=== PATIENT | male | born 1955 | race Caucasian/White ===

== ENCOUNTER 2019-12-06 09:42 | Outpatient (RCR) | payer MEDICAID, SELFPAY ==
[2019-12-06 11:04] LABS: Basophils # 0.1 10^3/uL (0.0-0.1); Basophils % 0.7 %; Eosinophils # 0.5 10^3/uL (0.0-0.8); Eosinophils % 6.5 %; Hematocrit 31.9 % (42.0-52.0); Hemoglobin 10.5 g/dL (11.7-16.6); Lymphocytes # 1.6 10^3/uL (0.8-4.8); Lymphocytes % 21.4 %; Mean Corpuscular HGB Conc 32.9 g/dL (30.0-36.0); Mean Corpuscular Hemoglobin 30.8 pg (28.0-34.0); Mean Corpuscular Volume 93.5 fL (80-94); Mean Platelet Volume 8.8 fL (7.4-10.4); Monocytes # 0.6 10^3/uL (0.2-0.9); Monocytes % 7.7 %; Neutrophils # 4.7 10^3/uL (1.8-7.7); Neutrophils % 63.2 %; Nucleated Red Blood Cells % 0 %; Platelet Count 296 10^3/cmm (130-400); Red Blood Count 3.41 10^6/uL (4.1-5.3); Red Cell Distribution Width 13.7 % (12.1-15.1); White Blood Count 7.4 10^3/uL (4.0-10.0)
[2019-12-06 11:09] LABS: Alanine Aminotransferase 17 U/L (0-41); Albumin Level 4.7 g/dL (3.5-5.2); Alkaline Phosphatase 96 IU/L (40-130); Anion Gap 15.5 (5-19); Aspartate Amino Transferase 16 U/L (0-40); Blood Urea Nitrogen 27 mg/dL (8-23); Calcium 9.7 mg/Dl (8.8-10.2); Carbon Dioxide 23 mmol/L (22-29); Chloride 99 mmol/L (98-107); Globulin 2.3 g/dL (1.3-4.6); Glomerular Filtration Rate 67.4 mL/min (90-130); Glucose 122 mg/dL (74-106); Iron 87 ug/dL (59-158); Percent Saturation 31.5 % (20-50); Potassium 5.5 mmol/L (3.5-5.1); Sodium 132 mmol/L (136-145); Total Bilirubin 0.2 mg/dL (0.15-1.2); Total Iron Binding Capacity 276 mg/dL; Unsaturated Iron Binding 189 ug/dL (112-347)
[2019-12-06 12:08] LABS: Erythrocyte Sedimentation Rate 31 mm/hr (0-10)
[2019-12-08 17:11] LABS: ALBUMIN 3.7 g/dL (3.8-4.8); ALPHA 1 GLOBULIN 0.3 g/dL (0.2-0.3); ALPHA 2 GLOBULIN 1.1 g/dL (0.5-0.9); BETA 1 GLOBULIN 0.4 g/dL (0.4-0.6); BETA 2 GLOBULIN 0.3 g/dL (0.2-0.5); GAMMA GLOBULIN 0.9 g/dL (0.8-1.7); KAPPA LIGHT CHAIN, FREE, SERUM 40.3 mg/L (3.3-19.4); KAPPA/LAMBDA LIGHT CHAINS FREE 1.23 (0.26-1.65); LAMBDA LIGHT CHAIN, FREE, SERU 32.8 mg/L (5.7-26.3); PROTEIN, TOTAL 6.7 g/dL (6.1-8.1)
--- NOTE | 2019-12-10 10:48 | ONC FU_ITS ---
Dr. Mehta Patient Follow-Up Note Patient: Hussein Fitch Unit #: [id number]: 1955 Dicatated By: Jan Mehta M.D.Date of Visit:Dec 06, 2019 Onc Med Follow-up/Prog Note Chief Complaint: Anemia. History of Present Illness: This is a 64 year-old man with iron deficiency anemia. In May 2013 he was admitted to the hospital with severe anemia, hemoglobin at 5.4 g with hematocrit 15.6%. The red cell indices were in the upper normal range. The white blood cell count was normal at 6900, and the platelet count was normal at 280,000. The uncorrected reticulocyte count was 7.7%. B12 and folate levels were normal. The serum iron was normal at 101 mcg/dL with transferrin saturation 24.9%. He was transfused a total of 4 units of packed red blood cells. He did undergo upper and lower GI endoscopy. The only abnormal finding was mild gastritis. He apparently had a previous history of GI bleeding due to peptic ulcer disease. Despite the negative endoscopy findings, the clinical picture appeared to be most consistent with acute GI blood loss. However, he also had undergone a left femoropopliteal bypass procedure a little over a month prior to that admission. I had seen him initially in June 2013. At that point his transferrin saturation was low at 11.4%, and I did opt to have him start parenteral iron replacement with Venofer, though his hemoglobin was just mildly decreased at 11.9 g. He did have 3/3 stools come back heme-positive. On 08/27/2019 his hemoglobin had dropped back down to 5.4 g, and he was again transfused PRBC. He required further transfusions in December 2013, and January 2014 he was again given parenteral iron replacement with Venofer. In May 2014 he underwent redo left femoropopliteal bypass. In September 2014 he was admitted to the hospital again with severe anemia, hemoglobin 4.5 g. That episode occurred while on warfarin with supratherapeutic INR. His other medical illnesses include hypertension, dyslipidemia, type 2 diabetes, peripheral arterial disease, and COPD. He has had multiple surgeries on his right arm due to an MRSA infection. He also had 2 surgeries on his right foot. He underwent left fempop bypass in March 2013 and redo left fempop bypass in May 2014. He also had a previous angioplasty/stent procedure to the right leg. His prior GI evaluations included EGD and colonoscopy in May 2013, capsule endoscopy in April 2014, and EGD in October 2016. He has a history of smoking for close to 50 years, and he continues to smoke 1 pack of cigarettes daily. INTERIM HISTORY: His laboratory studies from 07/23/2019 showed recurrence of anemia with hemoglobin 8.8 g and hematocrit 26.8%. The red cell indices were in the low normal range. His serum iron studies showed transferrin saturation low at 8%. He also had a low B12 level at 173 pg/mL. He began B12 replacement. His stool hemoccult on 08/01/2019 was reported to be positive. He had undergone repeat EGD and colonoscopy by Dr. Garrett. The EGD showed mild gastritis. There were no abnormalities noted on the colonoscopy. There was no source of GI blood loss identified. I had seen him for a follow-up visit on 08/13/2019. His hemoglobin was down slightly but adequate at 10.0 g. His transferrin saturation was low at 5.8% with ferritin 17.0 ng/mL, consistent with iron deficiency. He was then given parenteral iron replacement with 2 infusions of Injectafer. A follow-up CBC on 10/02/2019 was unchanged with hemoglobin 10.2 g, white blood cell count 6500, and platelet count 287,000. His transferrin saturation, though, had increased to 28.9% and his ferritin had increased to 356 ng/mL. He is seen for a follow-up visit. He recently was in the hospital for a lower extremity vascular procedure. He is scheduled to be seen in [place] next week for camera endoscopy. He says he is feeling pretty good, though he does have limited activity. ECOG score is 1. His appetite is not as good, but he has gained weight. He has not had fever. He says he sweats a lot at night. He has shortness of breath with activity. He does not complain of chest pain. He has heartburn/acid reflux occasionally. For the past few months he's been having diarrhea. It is mostly liquid stool. He has not been aware of any blood in the stool. Bladder function remains adequate. He sometimes has lightheadedness, and he occasionally falls. He complains that the bottoms of his feet hurt. He has no other joint or bone pain and no other focal neurologic symptoms. Medications: Aspirin 1 (81 mg) Tablet Oral daily, Ferrous Sulfate 1 Tablet (of 325 (65 fe) mg) Oral b.i.d., Gabapentin 1 Capsule (of 300 mg) Oral t.i.d., metFORMIN HCl 1 Tablet (of 850 mg) Oral t.i.d., Pravastatin Sodium 1 (80 mg) Tablet Oral at bedtime, Vitamin C 1 Capsule (of 500 mg) Oral daily Allergies: No Known Allergies. Review of Systems: Constitutional - His energy is pretty good, but he has limited activity. His appetite is not has good, but he has gained weight. No fever, but he has a lot of sweating at night. ECOG score is 1, ENMT - No sinus congestion/drainage. No mouth sores. No sore throat or difficulty swallowing, Hematologic/Lymphatic - He bruises easily, Respiratory - He has some shortness of breath with activity. No cough. No pleuritic pain or hemoptysis, Cardiovascular - No angina pain. No palpitations, Gastrointestinal - No nausea or vomiting. He occasionally has heartburn/acid reflux. For the past few months he has been having diarrhea all the time. He has not been aware of any blood in the stool or black stools, Genitourinary (M) - No dysuria or hematuria. He has urinary frequency and nocturia. No urgency or incontinence, Musculoskeletal - He has pain in his feet, Integumentary - No skin complications, Neurologic - No headache. He has episodes of dizziness, and he occasionally falls. He complains of the bottoms of his feet hurt, Psychiatric - He has anxiety. No depression. He does not sleep well at night. Vital Signs: Performed on Dec 06, 2019 09:55 Height - 71.00 in Weight - 151.0 lbs (HIGH) BSA - 1.87 sq.m BMI - 21.06 Temperature - 97.7 F (LOW) Pulse - 101 /min (HIGH) Respiration - 20 /min BP - 153/77 mm(hg) (HIGH) O2 Sat - 100 % Pain - 0 Physical Examination: Constitutional - He appears somewhat weak generally. He has poor mobility, Eyes - Sclerae nonicteric. Conjunctivae clear, ENMT - No lesions noted in the oral cavity, Hematologic/Lymphatic - No cervical, clavicular or axillary adenopathy, Respiratory - Lungs sound clear with slightly diminished air movement bilaterally, Cardiovascular - Heart rhythm is regular. He has a mild tachycardia. There is no murmur, gallop, or rub noted, Abdomen - Soft. Liver and spleen are not enlarged. There is no abdominal mass or ascites noted and no inguinal adenopathy, Extremities - No edema. He has chronic purpura in both arms, Neurologic - No focal neurologic deficits noted. Impression: 1. Patient with recurrent episodes of severe anemia. This is almost certainly to due to GI blood loss, as he has had heme positive stool on multiple occasions. The exact source has not been determined despite repeated GI endoscopy studies and a capsule endoscopy study in 2014. He has associated iron deficiency which has failed to correct of oral iron supplementation. 2. He also had recent evidence of B12 deficiency, for which he has started B12 replacement. 3. He has had chronic diarrhea. He has recent symptoms of nausea, abdominal pain, and weight loss. 4. He has shortness of breath and cough, and he is at risk for lung cancer, as he has a near 50-year pack smoking history. His other medical illnesses include: 5. Hypertension. 6. Hyperlipidemia. 7. Type II diabetes. 8. Peripheral arterial disease. 9. COPD. 10. History of MRSA infections. 11. Benign prostatic hypertrophy. 12. Chronic anxiety. Plan: He will have repeat laboratory studies today. If he is iron deficient, he will again be given parenteral iron replacement with Injectafer. In the meantime, I also will have him check stool for Clostridium difficile. If that is negative, he will need to stop oral iron supplementation and he may even need a trial off metformin to determine if those are causing his diarrhea. Signed By: Jan Mehta M.D. <<Signature on File>>
== END 2019-12-28 23:59 | disposition home or self-care (01) ==
LOC: ONCMED 09:42
PROVIDERS: Family Provider Physician Assistant; PCP Physician Assistant; Visit Provider Internal Medicine Medical Oncology
DX: D50.0 Iron deficiency anemia secondary to blood loss (chronic) (principal); I10 Essential (primary) hypertension; E78.5 Hyperlipidemia, unspecified; E11.51 Type 2 diabetes mellitus with diabetic peripheral angiopathy without gangrene; J44.9 Chronic obstructive pulmonary disease, unspecified; F17.210 Nicotine dependence, cigarettes, uncomplicated; E53.8 Deficiency of other specified B group vitamins; K52.9 Noninfective gastroenteritis and colitis, unspecified; N40.0 Benign prostatic hyperplasia without lower urinary tract symptoms; F41.9 Anxiety disorder, unspecified; Z79.82 Long term (current) use of aspirin; Z79.84 Long term (current) use of oral hypoglycemic drugs; Z86.14 Personal history of Methicillin resistant Staphylococcus aureus infection
CPT/HCPCS: 80053; 83540; 83550; 83883; 84155; 84165; 85025; 85651; 99214

== ENCOUNTER 2019-12-07 09:40 | Outpatient (RCR) | payer MEDICAID, SELFPAY | END 2019-12-28 23:59 | disposition home or self-care (01) | LOC: ONCMED 09:40 | PROVIDERS: Family Provider Physician Assistant; PCP Physician Assistant; Visit Provider Internal Medicine Medical Oncology | DX: R19.7 Diarrhea, unspecified (principal) | CPT/HCPCS: 87493 ==

== ENCOUNTER → 2019-12-11 15:25 | Outpatient (BNVA) | payer MEDICAID, SELFPAY | PROVIDERS: Family Provider Physician Assistant; PCP Physician Assistant; Visit Provider Urology | DX: N40.0 Benign prostatic hyperplasia without lower urinary tract symptoms (principal); N13.8 Other obstructive and reflux uropathy; N40.1 Benign prostatic hyperplasia with lower urinary tract symptoms; R35.8 Other polyuria | CPT/HCPCS: 81001 ==

== ENCOUNTER 2019-12-25 18:58 | Emergency (ER) | payer MEDICAID, SELFPAY ==
[2019-12-25 19:37] VITALS: BP 153/71; PULSE 102; RESP 20; TEMP 36.3; O2SAT 97
--- NOTE | 2019-12-25 21:33 | XR_ITS ---
WS: [id number] PORTABLE CHEST HISTORY: dizzy COMPARISON: 07/23/2019 Hyperinflated lungs. No pneumonia. Lung apices are partially obscured by the patient's chin. No pleur al effusion or pneumothorax. Cardiac size: Normal. Mediastinum/Aorta: Mild atherosclerosis aorta. No osseous abnormality seen. XR/XR chest 1V portable [id number] IMPRESSION: Chronic emphysema with no acute cardiopulmonary disease.
--- NOTE | 2019-12-25 21:34 | ED_ITS ---
Entered by Renu Loya, acting as scribe for Silva Evans MD Dec 25, 2019 18:58 HPI - Dizziness General: Chief Complaint: Dizziness Stated Complaint: elevated HR, dizzy Time Seen by Provider: 12/25/19 21:34 Source: patient Mode of arrival: ambulatory Limitations: no limitations History of Present Illness: HPI Narrative: 64 yo Male presents to ED with complaint of dizziness. Pt states that about 18:30 today he had a heart rate in the 120s. Pt states that he was dizzy, and shaky. Pt states that he felt like he was going to pass out. Pt states that he was trembling pretty bad and he had to catch himself on his counter or he would have fallen. MD elicited complaint: dizziness and near syncope Pertinent past history: anemia Onset (ago): hour(s) Timing: sudden onset Description: lightheadedness and near-syncope History of similar symptoms: No Exacerbating factors: nothing Relieving factors: nothing Associated symptoms: Reports palpitations; Denies chills, headache(s), nausea, syncope or vomiting Review of Systems Const: Denies: fever, chills, body aches or change in appetite Eyes: Denies: blurry vision or eye discomfort ENMT: Denies: throat pain or dental pain Card: Reports: palpitations and lightheadedness; Denies: syncope Resp: Denies: shortness of breath GI: Denies: abdominal pain, nausea, vomiting or diarrhea : Denies: painful urination Musc: Denies: neck pain or back pain Skin/Breast: Denies: rash Neuro: Denies: headache Psych: Denies: depression Fareed/Lymph: Denies: easy bruising All/Imm: Denies: hives PFSH ED PFSH: Statuses (acute, chronic, etc) shown below reflect problem list status as previously entered and may not be historically accurate Social History Smoking and tobacco status: current every day smoker Alcohol intake: never Marital status: Current occupational status: disabled Physical Exam Const: COMMON NORMALS: no apparent distress, oriented x3 and healthy appearing HENMT: COMMON NORMALS: normocephalic and head/scalp atraumatic HEAD & SCALP: normocephalic and atraumatic Eye: COMMON NORMALS: PERRL and EOMs intact bilaterally PUPIL: Yes PERRL Neck/C-Spine: COMMON NORMALS: full ROM and supple Chest: COMMONS NORMALS: inspection of chest normal and palpation of chest normal Resp: COMMON NORMALS: normal respiratory effort, no retractions, no use of accessory muscles and clear to auscultation bilaterally AUSCULTATION: clear to auscultation bilaterally Cardio: COMMON NORMALS: regular rate, regular rhythm and no murmurs RATE: regular rate RHYTHM: regular rhythm GI: COMMON NORMALS: normal to inspection, nondistended, normoactive bowel sounds, soft to palpation, non-tender and no masses PALPATION: Yes soft Extremity: COMMON NORMALS: normal to inspection and full ROM Neuro: COMMON NORMALS: oriented x3, moves all extremities and no focal motor deficits Psych: COMMON NORMALS: mental status grossly normal, thought process normal and cooperative THOUGHT PROCESS: normal thought process Skin: COMMON NORMALS: no rashes or lesions noted and no wounds GENERAL SKIN EXAM: no rashes or lesions noted Course Vital Signs: Vital signs: Vital Signs Temperature 97.3 F L 12/25/19 19:37 Pulse Rate 102 H 12/25/19 19:37 Respiratory Rate 20 H 12/25/19 19:37 Blood Pressure 153/71 12/25/19 19:37 Pulse Oximetry 97 12/25/19 19:37 MDM - Dizziness MDM Narrative: Medical decision making narrative: Patient presents here with some dizziness that is since resolved. Patient also had palpitations earlier in the day that have resolved. Patient is well-appearing here with no tachycardia. He feels better after IV fluids and lab work here is normal as well. Patient is stable for discharge and is to follow-up with his primary care doctor in 3 to 5 days return if worsening. Lab Data: Labs: Lab Results 12/25/19 12/25/19 Range/Units 21:39 21:39 WBC 9.1 (4.0-10.0) 10^3/ uL RBC 3.29 L (4.1-5.3) 10^6/u L Hgb 9.7 L (11.7-16.6) g/dL Hct 29.7 L (42.0-52.0) % MCV 90.3 (80-94) fL MCH 29.5 (28.0-34.0) pg MCHC 32.7 (30.0-36.0) g/dL RDW 12.8 (12.1-15.1) % Plt Count 368 (130-400) 10^3/c mm MPV 8.2 (7.4-10.4) fL Neut % (Auto) 67.6 % Lymph % (Auto) 20.3 % [facility] % (Auto) 5.7 % Eos % (Auto) 5.4 % Baso % (Auto) 0.5 % Neut # (Auto) 6.2 (1.8-7.7) 10^3/u L Lymph # (Auto) 1.9 (0.8-4.8) 10^3/u L [facility] # (Auto) 0.5 (0.2-0.9) 10^3/u L Eos # (Auto) 0.5 (0.0-0.8) 10^3/u L Baso # (Auto) 0.1 (0.0-0.1) 10^3/u L Nucleated RBC % (a uto) 0 % Nucleated RBCs # 0.0 /100WBC Sodium 133 L (136-145) mmol/L Potassium 5.0 (3.5-5.1) mmol/L Chloride 98 (98-107) mmol/L Carbon Dioxide 23 (22-29) mmol/L Anion Gap 17.0 (5-19) BUN 23 (8-23) mg/dL Creatinine 1.1 (0.7-1.2) mg/dL GFR Calculation 67.4 L (90-130) mL/min Glucose 130 H (74-106) mg/dL Calcium 9.2 (8.5-10.5) mg/dL Total Bilirubin 0.2 (0.15-1.2) mg/dL AST 19 (0-40) U/L ALT 21 (0-41) U/L Alkaline Phosphata se 102 (40-130) IU/L Total Protein 7.2 (6.6-8.7) g/dL Albumin 4.1 (3.5-5.2) g/dL Globulin 3.1 (1.3-4.6) g/dL EKG Data^: EKG 1: Attestation: I personally reviewed and interpreted this EKG as follows: EKG interpretation date: 12/25/19 EKG interpretation time: 19:45 Interpretation: sinus tach hr [address] or t wave abnormalities qrs 90 qtc 383 Discharge Plan Discharge Patient Disposition: Home, Self-Care Clinical Impression: Dizziness, Palpitations Condition: Stable Prescriptions: No Action gabapentin 300 mg capsule 300 mg PO TID RF: 0 bupropion HCl 300 mg tablet extended release 24 hr 300 mg PO QAM RF: 0 tamsulosin 0.4 mg capsule 0.4 mg PO DAILY RF: 0 ascorbic acid (vitamin C) 500 mg capsule PO DAILY RF: 0 lisinopril 10 mg tablet 10 mg PO DAILY RF: 0 ferrous sulfate 325 mg (65 mg iron) tablet 325 mg PO BID RF: 0 vitamin B complex [B Complex-Vitamin B12] Tablet 1 tab PO QAM RF: 0 cilostazol 100 mg tablet 100 mg PO BID RF: 0 metformin 850 mg tablet 850 mg PO BID RF: 0 pravastatin 80 mg tablet 80 mg PO DAILY RF: 0 aripiprazole 15 mg tablet 15 mg PO DAILY RF: 0 finasteride 5 mg tablet 5 mg PO DAILY RF: 0 Prilosec 10 mg susp,delayed release for recon 20 mg PO BID RF: 0 Discharge Orders: Discharge Order (Routine); Ordered 12/25/19 Ordered By: Silva Evans Referrals: Wendy Nuñez PA [Primary Care Provider] - 4-7 days Discharge Diet: Advance as tolerated Discharge Activity: Resume usual activity Patient Instructions: Palpitations (ED), Dizziness (ED) Coding Level of Care Code ED Dam Tender for Chg Fwd Exam Problem Focused The documentation recorded by the Shalini mcclain Carmen, accurately reflects the service I personally performed and the decisions made by Nathan miller Korby, MD Dec 25, 2019 18:58
[2019-12-25 21:45] LABS: Basophils # 0.1 10^3/uL (0.0-0.1); Basophils % 0.5 %; Eosinophils # 0.5 10^3/uL (0.0-0.8); Eosinophils % 5.4 %; Hematocrit 29.7 % (42.0-52.0); Hemoglobin 9.7 g/dL (11.7-16.6); Lymphocytes # 1.9 10^3/uL (0.8-4.8); Lymphocytes % 20.3 %; Mean Corpuscular HGB Conc 32.7 g/dL (30.0-36.0); Mean Corpuscular Hemoglobin 29.5 pg (28.0-34.0); Mean Corpuscular Volume 90.3 fL (80-94); Mean Platelet Volume 8.2 fL (7.4-10.4); Monocytes # 0.5 10^3/uL (0.2-0.9); Monocytes % 5.7 %; Neutrophils # 6.2 10^3/uL (1.8-7.7); Neutrophils % 67.6 %; Nucleated Red Blood Cells % 0 %; Platelet Count 368 10^3/cmm (130-400); Red Blood Count 3.29 10^6/uL (4.1-5.3); Red Cell Distribution Width 12.8 % (12.1-15.1); White Blood Count 9.1 10^3/uL (4.0-10.0)
[2019-12-25] MEDS: sodium chloride 0.9% 1,000 ML 999 ML IV (21:46)
[2019-12-25 22:00] LABS: Alanine Aminotransferase 21 U/L (0-41); Albumin Level 4.1 g/dL (3.5-5.2); Alkaline Phosphatase 102 IU/L (40-130); Aspartate Amino Transferase 19 U/L (0-40); Blood Urea Nitrogen 23 mg/dL (8-23); Calcium 9.2 mg/dL (8.5-10.5); Carbon Dioxide 23 mmol/L (22-29); Chloride 98 mmol/L (98-107); Globulin 3.1 g/dL (1.3-4.6); Glomerular Filtration Rate 67.4 mL/min (90-130); Glucose 130 mg/dL (74-106); Sodium 133 mmol/L (136-145); Total Bilirubin 0.2 mg/dL (0.15-1.2); Total Protein 7.2 g/dL (6.6-8.7)
[2019-12-25 22:53] VITALS: BP 137/82; PULSE 88; RESP 16; O2SAT 94
== END 2019-12-25 22:53 | disposition home or self-care (01) ==
PROVIDERS: Emergency Provider Emergency Medicine; Family Provider Physician Assistant; PCP Physician Assistant
DX: R42 Dizziness and giddiness (principal); R00.2 Palpitations; F17.210 Nicotine dependence, cigarettes, uncomplicated
CPT/HCPCS: 36415; 71045; 80053; 85025; 99281; 99282; J7030

== ENCOUNTER → 2019-12-26 09:12 | Outpatient (BNVA) | payer MEDICAID, SELFPAY | PROVIDERS: Family Provider Physician Assistant; PCP Physician Assistant; Visit Provider Social Worker Clinical | DX: F25.1 Schizoaffective disorder, depressive type (principal) | CPT/HCPCS: 90834 ==

== ENCOUNTER → 2020-01-23 10:40 | Outpatient (BNVA) | payer MEDICAID, SELFPAY | PROVIDERS: Family Provider Physician Assistant; PCP Physician Assistant; Visit Provider Social Worker Clinical | DX: F25.1 Schizoaffective disorder, depressive type (principal) | CPT/HCPCS: 90834 ==

== ENCOUNTER → 2020-02-06 10:35 | Outpatient (BNVA) | payer MEDICARE, MEDICAID, SELFPAY | PROVIDERS: Family Provider Physician Assistant; PCP Physician Assistant; Visit Provider Nurse Practitioner Psychiatric/Mental Health | DX: F25.1 Schizoaffective disorder, depressive type (principal); F17.210 Nicotine dependence, cigarettes, uncomplicated | CPT/HCPCS: 99213 ==

== ENCOUNTER → 2020-02-18 10:41 | Outpatient (BNVA) | payer MEDICARE, MEDICAID, SELFPAY | PROVIDERS: Family Provider Physician Assistant; PCP Physician Assistant; Visit Provider Social Worker Clinical | DX: F25.1 Schizoaffective disorder, depressive type (principal) | CPT/HCPCS: 90834 ==

== ENCOUNTER → 2020-03-12 12:35 | Outpatient (BNVA) | payer MEDICAID, SELFPAY | PROVIDERS: Family Provider Physician Assistant; PCP Physician Assistant; Visit Provider Social Worker Clinical | DX: F25.1 Schizoaffective disorder, depressive type (principal) | CPT/HCPCS: 90834 ==

== ENCOUNTER 2020-03-18 12:37 | Outpatient (CLI) | payer MEDICARE, MEDICAID, SELFPAY ==
[2020-03-18 13:30] LABS: Basophils % 0.5 %; Eosinophils # 0.5 10^3/uL (0.0-0.8); Eosinophils % 6.1 %; Hematocrit 31.7 % (42.0-52.0); Hemoglobin 10.3 g/dL (11.7-16.6); Lymphocytes # 1.5 10^3/uL (0.8-4.8); Lymphocytes % 19.5 %; Mean Corpuscular HGB Conc 32.5 g/dL (30.0-36.0); Mean Corpuscular Hemoglobin 29.9 pg (28.0-34.0); Mean Corpuscular Volume 91.9 fL (80-94); Mean Platelet Volume 8.8 fL (7.4-10.4); Monocytes # 0.4 10^3/uL (0.2-0.9); Monocytes % 5.1 %; Neutrophils # 5.2 10^3/uL (1.8-7.7); Neutrophils % 68.4 %; Nucleated Red Blood Cells % 0 %; Platelet Count 309 10^3/cmm (130-400); Red Blood Count 3.45 10^6/uL (4.1-5.3); Red Cell Distribution Width 13.1 % (12.1-15.1); White Blood Count 7.6 10^3/uL (4.0-10.0)
[2020-03-18 13:46] LABS: Alanine Aminotransferase 12 U/L (0-41); Albumin Level 4.2 g/dL (3.5-5.2); Alkaline Phosphatase 89 IU/L (40-130); Anion Gap 15.2 (5-19); Aspartate Amino Transferase 15 U/L (0-40); Blood Urea Nitrogen 15 mg/dL (8-23); Calcium 9.5 mg/dL (8.5-10.5); Carbon Dioxide 25 mmol/L (22-29); Chloride 98 mmol/L (98-107); Globulin 2.7 g/dL (1.3-4.6); Glucose 77 mg/dL (65-115); Osmolality Calculated 271 mOsm/kg (285-295); Potassium 5.2 mmol/L (3.5-5.1); Sodium 133 mmol/L (136-145); Total Bilirubin 0.2 mg/dL (0.15-1.2); Total Protein 6.9 g/dL (6.6-8.7)
[2020-03-18 16:06] LABS: Ferritin 107 ng/mL (30-400); Iron 56 ug/dL (59-158); Percent Saturation 21.6 % (20-50); Total Iron Binding Capacity 259 mcg/dl; Unsaturated Iron Binding 203 ug/dL (112-347)
== END 2020-03-18 12:38 | disposition home or self-care (01) ==
LOC: ONCMED 12:37
PROVIDERS: Family Provider Physician Assistant; PCP Physician Assistant; Visit Provider Internal Medicine Medical Oncology
DX: D64.9 Anemia, unspecified (principal)
CPT/HCPCS: 36415; 80053; 82728; 83540; 83550; 85025

== ENCOUNTER 2020-03-20 15:14 | Outpatient (CLI) | payer MEDICARE, MEDICAID, SELFPAY ==
--- NOTE | 2020-03-22 11:40 | ONC FU_ITS ---
Dr. Mehta Patient Follow-Up Note Patient: Hussein Fitch Unit #: [id number]: 1955 Dicatated By: Jan Mehta M.D.Date of Visit:Mar 20, 2020 Onc Med Follow-up/Prog Note Chief Complaint: Anemia. History of Present Illness: This is a 65 year-old man with anemia, at least some complement of which has been due to iron deficiency. In May 2013 he was admitted to the hospital with severe anemia, hemoglobin at 5.4 g with hematocrit 15.6%. The red cell indices were in the upper normal range. The white blood cell count was normal at 6900, and the platelet count was normal at 280,000. The uncorrected reticulocyte count was 7.7%. B12 and folate levels were normal. The serum iron was normal at 101 mcg/dL with transferrin saturation 24.9%. He was transfused a total of 4 units of packed red blood cells. He did undergo upper and lower GI endoscopy. The only abnormal finding was mild gastritis. He apparently had a previous history of GI bleeding due to peptic ulcer disease. Despite the negative endoscopy findings, the clinical picture appeared to be most consistent with acute GI blood loss. However, he also had undergone a left femoropopliteal bypass procedure a little over a month prior to that admission. I had seen him initially in June 2013. At that point his transferrin saturation was low at 11.4%, and I did opt to have him start parenteral iron replacement with Venofer, though his hemoglobin was just mildly decreased at 11.9 g. He did have 3/3 stools come back heme-positive. On 08/27/2019 his hemoglobin had dropped back down to 5.4 g, and he was again transfused PRBC. He required further transfusions in December 2013, and January 2014 he was again given parenteral iron replacement with Venofer. In May 2014 he underwent redo left femoropopliteal bypass. In September 2014 he was admitted to the hospital again with severe anemia, hemoglobin 4.5 g. That episode occurred while on warfarin with supratherapeutic INR. His other medical illnesses include hypertension, dyslipidemia, type 2 diabetes, peripheral arterial disease, and COPD. He has had multiple surgeries on his right arm due to an MRSA infection. He also had 2 surgeries on his right foot. He underwent left fempop bypass in March 2013 and redo left fempop bypass in May 2014. He also had a previous angioplasty/stent procedure to the right leg. His prior GI evaluations included EGD and colonoscopy in May 2013, capsule endoscopy in April 2014, and EGD in October 2016. He has a history of smoking for close to 50 years, and he continues to smoke 1 pack of cigarettes daily. INTERIM HISTORY: His laboratory studies from 07/23/2019 showed recurrence of anemia with hemoglobin 8.8 g and hematocrit 26.8%. The red cell indices were in the low normal range. His serum iron studies showed transferrin saturation low at 8%. He also had a low B12 level at 173 pg/mL. He began B12 replacement. His stool hemoccult on 08/01/2019 was reported to be positive. He had undergone repeat EGD and colonoscopy by Dr. Garrett. The EGD showed mild gastritis. There were no abnormalities noted on the colonoscopy. There was no source of GI blood loss identified. I had seen him for a follow-up visit on 08/13/2019. His hemoglobin was down slightly but adequate at 10.0 g. His transferrin saturation was low at 5.8% with ferritin 17.0 ng/mL, consistent with iron deficiency. He was then given parenteral iron replacement with 2 infusions of Injectafer. A follow-up CBC on 10/02/2019 was unchanged with hemoglobin 10.2 g, white blood cell count 6500, and platelet count 287,000. His transferrin saturation, though, had increased to 28.9% and his ferritin had increased to 356 ng/mL. As of his follow-up visit in November 2019 he remained mildly anemic, hemoglobin 10.5 g, but with normal transferrin saturation at 31%. He is seen for a follow-up visit. He says that everything is about the same. He has continued his B12 injections. He apparently is scheduled to have a camera endoscopy done in [place]. He complains that he does not have much energy. He is doing light work at home. His ECOG score is 1. He says he is not hungry, and he has been losing weight. He has not had fever. He has night sweating quite a bit. He says his breathing is pretty good. He has not been having chest pain. He has diarrhea quite often, but he has not been aware of any blood in the stool. He has no other GI or complaints. He has no significant joint or bone pain. He does not complain of headache. He says he is dizzy quite often. He has no focal neurologic symptoms. Medications: Aspirin 1 (81 mg) Tablet Oral daily, Ferrous Sulfate 1 Tablet (of 325 (65 fe) mg) Oral b.i.d., Gabapentin 1 Capsule (of 300 mg) Oral t.i.d., metFORMIN HCl 1 Tablet (of 850 mg) Oral t.i.d., Pravastatin Sodium 1 (80 mg) Tablet Oral at bedtime, Vitamin C 1 Capsule (of 500 mg) Oral daily Allergies: No Known Allergies. Review of Systems: Constitutional - His energy level is low. He does some light housework. His appetite is poor and weight is down about 8 pounds from last visit. No fever or chills. He has persistant night sweats. ECOG score is 1, ENMT - No sinus congestion/drainage. No mouth sores. No sore throat or difficulty swallowing, Hematologic/Lymphatic - He bruises easily, Respiratory - No shortness of breath. No cough. No pleuritic pain or hemoptysis, Cardiovascular - No angina pain. No palpitations, Gastrointestinal - No nausea or vomiting. No heartburn or acid reflux. He has intermittent diarrhea. No constipation. No blood in the stool or black stools, Genitourinary (M) - No dysuria or hematuria. No urinary frequency. No urgency or incontinence, Musculoskeletal - No joint or bone pain, Integumentary - No skin complications, Neurologic - No headache. He has dizziness quite often. No numbness/paresthesias or other focal neurologic symptoms, Psychiatric - He has significant anxiety. No depression. He doesn't sleep well at night. Vital Signs: Performed on Mar 20, 2020 15:16 Height - 71.00 in Weight - 143.8 lbs (LOW) BSA - 1.83 sq.m BMI - 20.06 Temperature - 98.0 F (LOW) Pulse - 106 /min (HIGH) Respiration - 22 /min BP - 134/64 mm(hg) O2 Sat - 97 % Pain - 0 Physical Examination: Constitutional - He has poor mobility. He does not appear acutely ill, Eyes - Sclerae nonicteric. Conjunctivae clear, ENMT - No lesions noted in the oral cavity, Hematologic/Lymphatic - No cervical, clavicular or axillary adenopathy, Respiratory - Lungs show some decrease in air movement bilaterally. There are some upper airway rhonchi present, Cardiovascular - Heart rhythm is regular with a mild tachycardia. There is no murmur, gallop, or rub noted, Abdomen - Soft. Liver and spleen are not enlarged. There is no abdominal mass or ascites noted and no inguinal adenopathy, Extremities - No edema. He has chronic purpura in both arms, Neurologic - No focal neurologic deficits noted. Lab/Imaging: Test performed on Mar 18, 2020 13:00 Ferritin 107 ng/mL Iron 56 mcg/dL Sodium 133 mmol/L Iron Binding Capacity (TIBC) 259 mcg/dl Potassium 5.2 mmol/L % Iron Saturation 21.6 % Chloride 98 mmol/L CO2 25 mmol/L UIBC 203 mcg/dL Anion Gap 15.2 BUN 15 mg/dL Creatinine 0.8 mg/dL Cr Clearance (Est) 89.1800 mL/min eGFR 97.0 mL/min Glucose 77 mg/dL Calcium 9.5 mg/dL Protein, Total 6.9 g/dL Albumin 4.2 g/dL Globulin 2.7 g/dL Bilirubin, Total 0.2 mg/dL ALT (SGPT) 12 U/L AST (SGOT) 15 U/L Alkaline Phosphatase 89 IU/L WBC 7.6 10 3/uL RBC 3.45 10 6/uL HGB 10.3 g/dL HCT 31.7 % MCV 91.9 fL MCH 29.9 pg MCHC 32.5 g/dL RDW 13.1 % Platelet Count 309 10 3/cmm MPV 8.8 fL Neutrophils 5.2 10 3/uL Lymphocytes 1.5 10 3/uL Monocytes 0.4 10 3/uL Eosinophils 0.5 10 3/uL Basophils 0.0 10 3/uL Neutrophil % 68.4 % Lymphocyte % 19.5 % Monocyte % 5.1 % Eosinophil % 6.1 % Basophils % 0.5 % Impression: 1. Patient with recurrent episodes of severe anemia. This is almost certainly to due to GI blood loss, as he has had heme positive stool on multiple occasions. The exact source has not been determined despite repeated GI endoscopy studies and a capsule endoscopy study in 2013. He has associated iron deficiency which failed to correct on oral iron supplementation. 2. He also was found to have evidence of B12 deficiency, for which he has started B12 replacement. 3. He has had chronic diarrhea, and he has had significant weight loss. 4. He has shortness of breath and cough, and he is at risk for lung cancer, as he has a near 50-year pack smoking history. His other medical illnesses include: 5. Hypertension. 6. Hyperlipidemia. 7. Type II diabetes. 8. Peripheral arterial disease. 9. COPD. 10. History of MRSA infections. 11. Benign prostatic hypertrophy. 12. Chronic anxiety. He has remained mildly anemic despite parenteral iron replacement and B12 injections. The cause is on certain. Plan: As he is just mildly anemic, I will continue to follow on observation/expectant management, at least until he is completed his GI evaluation. I will tentatively plan a follow-up visit in 3 months. If he remains anemic without identifiable cause, I will recommend further evaluation with bone marrow aspiration/biopsy. Signed By: Jan Mehta M.D. <<Signature on File>>
== END 2020-03-20 15:15 | disposition home or self-care (01) ==
LOC: ONCMED 15:14
PROVIDERS: Family Provider Physician Assistant; PCP Physician Assistant; Visit Provider Internal Medicine Medical Oncology
DX: D50.0 Iron deficiency anemia secondary to blood loss (chronic) (principal); D51.9 Vitamin B12 deficiency anemia, unspecified; K52.9 Noninfective gastroenteritis and colitis, unspecified; F17.210 Nicotine dependence, cigarettes, uncomplicated; I10 Essential (primary) hypertension; E78.5 Hyperlipidemia, unspecified; J44.9 Chronic obstructive pulmonary disease, unspecified; D29.1 Benign neoplasm of prostate; R63.4 Abnormal weight loss; E11.51 Type 2 diabetes mellitus with diabetic peripheral angiopathy without gangrene; F41.9 Anxiety disorder, unspecified; Z86.14 Personal history of Methicillin resistant Staphylococcus aureus infection; Z95.820 Peripheral vascular angioplasty status with implants and grafts
CPT/HCPCS: 99214

== ENCOUNTER → 2020-04-02 08:45 | Outpatient (BNVA) | payer MEDICARE, MEDICAID, SELFPAY | PROVIDERS: Family Provider Physician Assistant; PCP Physician Assistant; Visit Provider Social Worker Clinical | DX: F25.1 Schizoaffective disorder, depressive type (principal) | CPT/HCPCS: 90834 ==

== ENCOUNTER → 2020-04-16 08:25 | Outpatient (BNVA) | payer MEDICARE, MEDICAID, SELFPAY | PROVIDERS: Family Provider Physician Assistant; PCP Physician Assistant; Visit Provider Social Worker Clinical | DX: F25.1 Schizoaffective disorder, depressive type (principal) | CPT/HCPCS: 90834 ==

== ENCOUNTER → 2020-05-07 08:29 | Outpatient (BNVA) | payer MEDICARE, MEDICAID, SELFPAY | PROVIDERS: Family Provider Physician Assistant; PCP Physician Assistant; Visit Provider Social Worker Clinical | DX: F25.1 Schizoaffective disorder, depressive type (principal) | CPT/HCPCS: 90834 ==

== ENCOUNTER → 2020-05-21 07:32 | Outpatient (BNVA) | payer MEDICARE, MEDICAID, SELFPAY | PROVIDERS: Family Provider Physician Assistant; PCP Physician Assistant; Visit Provider Nurse Practitioner Psychiatric/Mental Health | DX: F25.1 Schizoaffective disorder, depressive type (principal); F17.210 Nicotine dependence, cigarettes, uncomplicated; Z79.899 Other long term (current) drug therapy | CPT/HCPCS: 99213 ==

== ENCOUNTER → 2020-05-27 08:11 | Outpatient (BNVA) | payer MEDICARE, MEDICAID, SELFPAY | PROVIDERS: Family Provider Physician Assistant; PCP Physician Assistant; Visit Provider Social Worker Clinical | DX: F25.1 Schizoaffective disorder, depressive type (principal) | CPT/HCPCS: 90834 ==

== ENCOUNTER → 2020-06-23 08:05 | Outpatient (BNVA) | payer MEDICARE, MEDICAID, SELFPAY | PROVIDERS: Family Provider Physician Assistant; PCP Physician Assistant; Visit Provider Social Worker Clinical | DX: F25.1 Schizoaffective disorder, depressive type (principal) | CPT/HCPCS: 90834 ==

== ENCOUNTER 2020-07-03 09:30 | Outpatient (CLI) | payer MEDICARE, MEDICAID, SELFPAY ==
[2020-07-03 10:05] LABS: Basophils # 0.1 10^3/uL (0.0-0.1); Basophils % 0.8 %; Eosinophils # 0.5 10^3/uL (0.0-0.8); Eosinophils % 6.9 %; Hematocrit 31.8 % (42.0-52.0); Hemoglobin 10.3 g/dL (11.7-16.6); Lymphocytes # 1.5 10^3/uL (0.8-4.8); Lymphocytes % 19.8 %; Mean Corpuscular HGB Conc 32.4 g/dL (30.0-36.0); Mean Corpuscular Hemoglobin 29.6 pg (28.0-34.0); Mean Corpuscular Volume 91.4 fL (80-94); Monocytes # 0.4 10^3/uL (0.2-0.9); Monocytes % 5.4 %; Neutrophils # 5.08 10^3/uL (1.8-7.7); Neutrophils % 66.8 %; Nucleated Red Blood Cells % 0 %; Platelet Count 288 10^3/cmm (130-400); Red Blood Count 3.48 10^6/uL (4.1-5.3); Red Cell Distribution Width 13.2 % (12.1-15.1); White Blood Count 7.6 10^3/uL (4.0-10.0)
[2020-07-03 10:35] LABS: Alanine Aminotransferase 15 U/L (0-41); Albumin Level 4.4 g/dL (3.5-5.2); Alkaline Phosphatase 86 IU/L (40-130); Anion Gap 11.4 (5-19); Aspartate Amino Transferase 13 U/L (0-40); Blood Urea Nitrogen 15 mg/dL (8-23); Calcium 9.2 mg/dL (8.5-10.5); Carbon Dioxide 27 mmol/L (22-29); Chloride 101 mmol/L (98-107); Ferritin 80 ng/mL (30-400); Glomerular Filtration Rate 113.2 mL/min (90-130); Glucose 130 mg/dL (65-115); Homocysteine 11.81; Iron 38 ug/dL (59-158); Lactate Dehydrogenase 151 U/L (135-225); Osmolality Calculated 278 mOsm/kg (285-295); Percent Saturation 13.4 % (20-50); Potassium 4.4 mmol/L (3.5-5.1); Sodium 135 mmol/L (136-145); Total Bilirubin 0.2 mg/dL (0.15-1.2); Total Iron Binding Capacity 283 mcg/dl; Total Protein 7.4 g/dL (6.6-8.7); Unsaturated Iron Binding 245 ug/dL (112-347)
[2020-07-03 10:45] LABS: Erythrocyte Sedimentation Rate 41 mm/hr (0-10)
[2020-07-03 10:50] LABS: Vitamin B12 765 pg/mL (232-1245)
[2020-07-04 08:40] LABS: PROTEIN, TOTAL 6.8 g/dL (6.1-8.1)
[2020-07-04 15:50] LABS: ALBUMIN 3.8 g/dL (3.8-4.8); ALPHA 1 GLOBULIN 0.3 g/dL (0.2-0.3); ALPHA 2 GLOBULIN 1.1 g/dL (0.5-0.9); BETA 1 GLOBULIN 0.4 g/dL (0.4-0.6); BETA 2 GLOBULIN 0.3 g/dL (0.2-0.5); KAPPA LIGHT CHAIN, FREE, SERUM 34.6 mg/L (3.3-19.4); KAPPA/LAMBDA LIGHT CHAINS FREE 1.18 (0.26-1.65); LAMBDA LIGHT CHAIN, FREE, SERU 29.2 mg/L (5.7-26.3)
[2020-07-08 12:50] LABS: Methylmalonic Acid 202 nmol/L (87-318)
== END 2020-07-03 09:31 | disposition home or self-care (01) ==
LOC: ONCMED 09:34
PROVIDERS: PCP Internal Medicine; Visit Provider Internal Medicine Medical Oncology
DX: D50.0 Iron deficiency anemia secondary to blood loss (chronic) (principal); E11.29 Type 2 diabetes mellitus with other diabetic kidney complication; E78.5 Hyperlipidemia, unspecified; F41.9 Anxiety disorder, unspecified; I05.0 Rheumatic mitral stenosis; E11.51 Type 2 diabetes mellitus with diabetic peripheral angiopathy without gangrene; K21.9 Gastro-esophageal reflux disease without esophagitis
CPT/HCPCS: 36415; 80053; 82607; 82728; 83090; 83540; 83550; 83615; 83883; 83921; 84155; 84165; 85025; 85045; 85651

== ENCOUNTER 2020-07-10 06:15 | Outpatient (CLI) | payer MEDICARE, MEDICAID, SELFPAY ==
[2020-07-10] MEDS: ferric carboxy (IVPB) 750 MG in sodium chloride 0.9% (100 ml) 100 ML 460 MG IV (13:48)
[2020-07-10] MEDS: sodium chloride 0.9% (100 ml) 100 ML 400 ML (13:48)
--- NOTE | 2020-07-12 16:21 | ONC FU_ITS ---
Dr. Mehta Patient Follow-Up Note Patient: Hussein Fitch Unit #: [id number]: 1955 Dicatated By: Jan Mehta M.D.Date of Visit:Jul 10, 2020 Onc Med Follow-up/Prog Note Chief Complaint: Anemia. History of Present Illness: This is a 65 year-old man with anemia, at least some complement of which has been due to iron deficiency. In May 2013 he was admitted to the hospital with severe anemia, hemoglobin at 5.4 g with hematocrit 15.6%. The red cell indices were in the upper normal range. The white blood cell count was normal at 6900, and the platelet count was normal at 280,000. The uncorrected reticulocyte count was 7.7%. B12 and folate levels were normal. The serum iron was normal at 101 mcg/dL with transferrin saturation 24.9%. He was transfused a total of 4 units of packed red blood cells. He did undergo upper and lower GI endoscopy. The only abnormal finding was mild gastritis. He apparently had a previous history of GI bleeding due to peptic ulcer disease. Despite the negative endoscopy findings, the clinical picture appeared to be most consistent with acute GI blood loss. However, he also had undergone a left femoropopliteal bypass procedure a little over a month prior to that admission. I had seen him initially in June 2013. At that point his transferrin saturation was low at 11.4%, and I did opt to have him start parenteral iron replacement with Venofer, though his hemoglobin was just mildly decreased at 11.9 g. He did have 3/3 stools come back heme-positive. On 08/27/2019 his hemoglobin had dropped back down to 5.4 g, and he was again transfused PRBC. He required further transfusions in December 2013, and January 2014 he was again given parenteral iron replacement with Venofer. In May 2014 he underwent redo left femoropopliteal bypass. In September 2014 he was admitted to the hospital again with severe anemia, hemoglobin 4.5 g. That episode occurred while on warfarin with supratherapeutic INR. His other medical illnesses include hypertension, dyslipidemia, type 2 diabetes, peripheral arterial disease, and COPD. He has had multiple surgeries on his right arm due to an MRSA infection. He also had 2 surgeries on his right foot. He underwent left fempop bypass in March 2013 and redo left fempop bypass in May 2014. He also had a previous angioplasty/stent procedure to the right leg. His prior GI evaluations included EGD and colonoscopy in May 2013, capsule endoscopy in April 2014, and EGD in October 2016. He has a history of smoking for close to 50 years, and he continues to smoke 1 pack of cigarettes daily. INTERIM HISTORY: His laboratory studies from 07/23/2019 showed recurrence of anemia with hemoglobin 8.8 g and hematocrit 26.8%. The red cell indices were in the low normal range. His serum iron studies showed transferrin saturation low at 8%. He also had a low B12 level at 173 pg/mL. He began B12 replacement. His stool hemoccult on 08/01/2019 was reported to be positive. He had undergone repeat EGD and colonoscopy by Dr. Garrett. The EGD showed mild gastritis. There were no abnormalities noted on the colonoscopy. There was no source of GI blood loss identified. I had seen him for a follow-up visit on 08/13/2019. His hemoglobin was down slightly but adequate at 10.0 g. His transferrin saturation was low at 5.8% with ferritin 17.0 ng/mL, consistent with iron deficiency. He was then given parenteral iron replacement with 2 infusions of Injectafer. A follow-up CBC on 10/02/2019 was unchanged with hemoglobin 10.2 g, white blood cell count 6500, and platelet count 287,000. His transferrin saturation, though, had increased to 28.9% and his ferritin had increased to 356 ng/mL. As of his follow-up visit in November 2019 he remained mildly anemic, hemoglobin 10.5 g, but with normal transferrin saturation at 31%. He is seen for a scheduled visit. He says he is feeling fine, though he does not have much energy. He is able to do light work. His ECOG score is 1. He says he does not eat like he should, and he reports that his weight is down at least 5 pounds. By our scale, though, it appears stable. He does not have fever or night sweats. He has some shortness of breath, but he says his breathing is okay. He does not complain of cough, and he has not been having chest pain. He sometimes has watery stools, and he indicates that his stool recently was tested again and was positive for blood. He is scheduled to see Dr. Rubin for GI evaluation. He has no complaints with bladder function. He has no significant joint or bone pain. He says his balance is not good, and he is prone to fall, but he has had no falls recently. He has some numbness in his right foot. He has no other focal neurologic symptoms. Medications: Abilify 1 Tablet (of 5 mg) Oral daily, Aspirin 1 (81 mg) Tablet Oral daily, busPIRone HCl 1 Tablet (of 15 mg) Oral daily, Clindamycin HCl 3 Capsule (of 150 mg) Oral t.i.d., Colace 1 Capsule (of 100 mg) Oral b.i.d., Ferrous Sulfate 1 Tablet (of 325 (65 fe) mg) Oral q on Every Other Day, Gabapentin 1 Capsule (of 300 mg) Oral t.i.d., glipiZIDE XL 1 Tablet (of 2.5 mg) Tablet SR 24 HR Oral daily, metFORMIN HCl 1 Tablet (of 850 mg) Oral daily, Metoprolol Tartrate 0.5 Tablet (of 25 mg) Oral b.i.d., Potassium Chloride ER 1 Tablet (of 20 meq) Tablet, controlled release Oral b.i.d., Pravastatin Sodium 1 (80 mg) Tablet Oral at bedtime, PriLOSEC OTC 1 Tablet (of 20 mg) Tablet, enteric coated Oral daily, Sildenafil Citrate 1 Tablet (of 50 mg) Oral PRN, Vitamin C 1 Capsule (of 500 mg) Oral daily Allergies: No Known Allergies. Review of Systems: Constitutional - He says he is feeling fine, though he does not have much energy. He is doing housework. He says he does not eat like he should. He says his weight is down at least 5 pounds, but by our scale it does appear to be stable. He does not have fever or night sweats. ECOG score is 1, ENMT - No sinus congestion/drainage. No mouth sores. No sore throat or difficulty swallowing, Hematologic/Lymphatic - He has easy bruising, Respiratory - He has some shortness of breath, but he says his breathing is okay. No cough. No pleuritic pain or hemoptysis, Cardiovascular - No angina pain. No palpitations, Gastrointestinal - No nausea or vomiting. No heartburn or acid reflux. His stools are sometimes watery. He says it was tested recently and was positive for blood, Genitourinary (M) - No dysuria or hematuria. No urinary frequency. No urgency or incontinence, Musculoskeletal - No joint or bone pain, Integumentary - No skin rash, Neurologic - No headache. He has some difficulty with balance, and he is prone to falling, though he has had no recent falls. He has numbness in his right foot. No other focal neurologic symptoms, Psychiatric - He has anxiety/depression. He complains that he wakes up a lot during the night. Vital Signs: Weight is 142 pounds. Blood pressure 116/53, pulse 88, respirations 22, temp 98.9 degrees, oxygen saturation 97%. Physical Examination: Constitutional - He appears somewhat weak generally, Eyes - Sclerae nonicteric. Conjunctivae clear, ENMT - No lesions noted in the oral cavity, Hematologic/Lymphatic - No cervical, clavicular or axillary adenopathy, Respiratory - Lungs sound clear with some decrease in air movement bilaterally, Cardiovascular - Heart rhythm is regular. There is no murmur, gallop, or rub noted, Abdomen - Soft. Liver and spleen are not enlarged. There is no abdominal mass or ascites noted and no inguinal adenopathy, Extremities - No edema. He has chronic purpura, Neurologic - No focal neurologic deficits noted. Lab/Imaging: Test performed on Jul 03, 2020 09:50 Ferritin 80 ng/mL Homocysteine 11.81 umol/L Iron 38 mcg/dL LDH (Total) 151 U/L Methylmalonic Acid 202 nmol/L Sodium 135 mmol/L Vitamin B12 765 pg/mL Iron Binding Capacity (TIBC) 283 mcg/dl Potassium 4.4 mmol/L % Iron Saturation 13.4 % Chloride 101 mmol/L CO2 27 mmol/L UIBC 245 mcg/dL Anion Gap 11.4 BUN 15 mg/dL Creatinine 0.7 mg/dL Cr Clearance (Est) 97.0700 mL/min eGFR 113.2 mL/min Glucose 130 mg/dL Calcium 9.2 mg/dL Protein, Total 7.4 g/dL Albumin 4.4 g/dL Globulin 3.0 g/dL Bilirubin, Total 0.2 mg/dL ALT (SGPT) 15 U/L AST (SGOT) 13 U/L Alkaline Phosphatase 86 IU/L ESR (Sed Rate) 41 mm/hr WBC 7.6 10 3/uL RBC 3.48 10 6/uL HGB 10.3 g/dL HCT 31.8 % MCV 91.4 fL MCH 29.6 pg MCHC 32.4 g/dL RDW 13.2 % Platelet Count 288 10 3/cmm MPV 9.0 fL Neutrophils 5.08 10 3/uL Lymphocytes 1.5 10 3/uL Monocytes 0.4 10 3/uL Eosinophils 0.5 10 3/uL Basophils 0.1 10 3/uL Neutrophil % 66.8 % Lymphocyte % 19.8 % Monocyte % 5.4 % Eosinophil % 6.9 % Basophils % 0.8 % NRBC % 0 % Impression: 1. Patient with recurrent episodes of severe anemia. This is almost certainly to due to GI blood loss, as he has had heme positive stool on multiple occasions. The exact source has not been determined despite repeated GI endoscopy studies and a capsule endoscopy study in 2013. He has associated iron deficiency which failed to correct on oral iron supplementation. 2. He also was found to have evidence of B12 deficiency, for which he has started B12 replacement. 3. He has had chronic diarrhea, and he has had significant weight loss. 4. He has shortness of breath and cough, and he is at risk for lung cancer, as he has a near 50-year pack smoking history. His other medical illnesses include: 5. Hypertension. 6. Hyperlipidemia. 7. Type II diabetes. 8. Peripheral arterial disease. 9. COPD. 10. History of MRSA infections. 11. Benign prostatic hypertrophy. 12. Chronic anxiety. He has remained mildly anemic despite parenteral iron replacement and B12 injections. This may be due to ongoing GI blood loss, as he reportedly has a heme positive stool. His current serum iron studies show low transferrin saturation at 13%, consistent with iron deficiency. Plan: He will be given parenteral iron replacement with Injectafer. He will be scheduled for 1-month interval follow-up lab studies. In the meantime, he will see Dr. Rubin for GI evaluation. Signed By: Jan Mehta M.D. <<Signature on File>>
== END 2020-07-10 06:16 | disposition home or self-care (01) ==
LOC: ONCMED 06:18
PROVIDERS: PCP Internal Medicine; Visit Provider Internal Medicine Medical Oncology
DX: D50.9 Iron deficiency anemia, unspecified (principal); R19.5 Other fecal abnormalities; E53.8 Deficiency of other specified B group vitamins; K52.9 Noninfective gastroenteritis and colitis, unspecified; R63.4 Abnormal weight loss; R05 Cough; I10 Essential (primary) hypertension; E78.5 Hyperlipidemia, unspecified; E11.42 Type 2 diabetes mellitus with diabetic polyneuropathy; E11.51 Type 2 diabetes mellitus with diabetic peripheral angiopathy without gangrene; J44.9 Chronic obstructive pulmonary disease, unspecified; N40.0 Benign prostatic hyperplasia without lower urinary tract symptoms; F41.9 Anxiety disorder, unspecified; Z86.14 Personal history of Methicillin resistant Staphylococcus aureus infection
CPT/HCPCS: 96365; 99214; J1439

== ENCOUNTER → 2020-07-15 08:31 | Outpatient (BNVA) | payer MEDICARE, MEDICAID, SELFPAY | PROVIDERS: PCP Internal Medicine; Visit Provider Social Worker Clinical | DX: F25.1 Schizoaffective disorder, depressive type (principal) | CPT/HCPCS: 90834 ==

== ENCOUNTER 2020-07-17 06:04 | Outpatient (CLI) | payer MEDICARE, MEDICAID, SELFPAY ==
[2020-07-17] MEDS: ferric carboxy (IVPB) 750 MG in sodium chloride 0.9% (100 ml) 100 ML 345 MG IV (14:30)
== END 2020-07-17 06:05 | disposition home or self-care (01) ==
LOC: ONCMED 06:06
PROVIDERS: PCP Physician Assistant; Visit Provider Internal Medicine Medical Oncology
DX: D50.0 Iron deficiency anemia secondary to blood loss (chronic) (principal)
CPT/HCPCS: 96365; J1439

== ENCOUNTER → 2020-07-21 14:35 | Outpatient (BNVA) | payer MEDICARE, MEDICAID, SELFPAY | PROVIDERS: PCP Physician Assistant; Visit Provider Internal Medicine | DX: I73.9 Peripheral vascular disease, unspecified (principal); E78.5 Hyperlipidemia, unspecified; I10 Essential (primary) hypertension; Z95.828 Presence of other vascular implants and grafts; E11.42 Type 2 diabetes mellitus with diabetic polyneuropathy; F17.210 Nicotine dependence, cigarettes, uncomplicated; R63.4 Abnormal weight loss | CPT/HCPCS: 84439; 84443 ==

== ENCOUNTER 2020-07-23 10:17 | Day surgery (SDC) | payer MEDICARE, MEDICAID, SELFPAY ==
[2020-07-22 12:53] VITALS: BMI 19.1
[2020-07-23 10:43] VITALS: BP 151/78; PULSE 86; RESP 18; TEMP 36.6; O2SAT 97
[2020-07-23] MEDS: sodium chloride 0.9% 1,000 ML 30 ML IV (10:58)
[2020-07-23 10:59] LABS: Glucose Point of Care 103 mg/dL (70-110)
--- NOTE | 2020-07-23 11:05 | ANES.PREANE2 ---
Pre-Anesthetic Assessment Pre-Anesthetic Assessment: Height/Weight: Height 1.8 m Weight 62.142 kg Temp Pulse Resp BP Pulse Ox 97.8 F 86 18 151/78 97 07/23/20 10:43 07/23/20 10:43 07/23/20 10:43 07/23/20 10:43 07/23/20 10:43 Preop Diagnosis: Blood in stool Proposed Procedure: Operation Date: 07/23/20 12:00 Proposed Procedures p EGD 68153/89355 K92.1(Not Applicable) - Alvaro Rubin MD s Colonoscopy(Not Applicable) - Alvaro Rubin MD Was Beta Robert taken within 24 hours: N/A Last intake: Intake Last Liquid Date 07/22/20 Last Liquid Time 22:30 Last Solid Date 07/21/20 Last Solid Time 17:00 Social: Social History: Alcohol and Tobacco Exam: Pre-Anes Outpt Exam: alert, oriented x 3, clear to auscultation bilaterally and regular rate & rhythm Airway: Submandibular: WNL Cervical ROM: WNL MP: 1 Dentition: Full History/ROS: No significant history except as noted Pulmonary: Pulmonary: COPD CV/HEM: Comments: Severe Peripheral Vascular Disease s/p Fem-Pop and stents : : None reported Hepatic: Hepatic: None reported GI: GI: None reported Metabolic: Metabolic: None reported Musc/skel: Musc/skel: None reported Neuropsych: Neuropsych: None reported Anesthetic Plan: ASA status: 3 Anesthesia: MAC Meds/Allergies Current Medications: Current Medications Generic Name Dose Route Start Last Admin Trade Name Freq PRN Reason Stop Dose Admin Sodium Chloride 1,000 mls @ 30 ml s/hr 07/23/20 10:30 07/23/20 10:58 Sodium Chloride 0.9% IV 30 mls/hr .Q24H CAMILO Administration PFSH Anesthesia PFSH: Medical History BPH with obstruction/lower urinary tract symptoms COPD (chronic obstructive pulmonary disease) Diabetes Dyslipidemia Essential hypertension 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 Lower urinary tract symptoms (LUTS) Nicotine dependence, cigarettes, uncomplicated Polyuria Schizoaffective disorder, depressive type Surgical History H/O colonoscopy yrs ago H/O esophagogastroduodenoscopy H/O foot surgery S/P angioplasty Status post femoral-popliteal bypass surgery Family History Family/Other Stroke Cancer Diabetes Hypertension Denies family history of Anesthesia complication Bleeding disorder Social History Smoking and tobacco status: current every day smoker Alcohol intake: never Household members: other Details: room mate Marital status: Current occupational status: disabled History of recent travel: No Data Anesthesia Other Labs: Laboratory Results - last 48 hr 07/23/20 10:55 POC Glucose 103 Cardiac Studies: No Data to Display
--- NOTE | 2020-07-23 12:15 | W.PM.OPSUD ---
Surgery/Procedure H&P Update DATE OF PROCEDURE: July 23, 2020 DATE H&P PERFORMED: 07/21/20 H&P UPDATE INFORMATION: I have reviewed H&P completed within last 30 days, I have examined patient prior to procedure and No changes to prior documentation PREOP DIAGNOSIS: Blood in stool PRIMARY INDICATION FOR PROCEDURE: The same PLANNED PROCEDURE: Operation Date: 07/23/20 12:00 Proposed Procedures p EGD [id number] K92.1(Not Applicable) - Alvaro Rubin MD s Colonoscopy(Not Applicable) - Alvaro Rubin MD
--- NOTE | 2020-07-23 13:00 | ANE.PACU2 ---
Inpatient post-anesthesia follow up: Airway intact: Yes Vital signs: Temperature 97.8 F Pulse Rate 86 Respiratory Rate 18 Blood Pressure 151/78 Pulse Oximetry 97 Oxygen Delivery Me thod Room Air Oxygen Flow Rate Fraction of Inspir ed Oxygen Hydration adequate: Yes Nausea and vomiting: No Mental status: Baseline
[2020-07-23 13:02] VITALS: BP 142/82; PULSE 88; RESP 16; TEMP 36.4; O2SAT 100
[2020-07-24 06:13] LABS: H. Pylori / CLO Test Negative
== END 2020-07-23 13:25 | disposition home or self-care (01) ==
PROVIDERS: PCP Internal Medicine; Visit Provider Surgery
PROC: 0DJ08ZZ Inspection of Upper Intestinal Tract, Via Natural or Artificial Opening Endoscopic (ICD-10-PCS; CPT 43235; principal; 2020-07-23 12:00)
PROC: 0DJD8ZZ Inspection of Lower Intestinal Tract, Via Natural or Artificial Opening Endoscopic (ICD-10-PCS; CPT 45378; 2020-07-23 12:00)
DX: K29.51 Unspecified chronic gastritis with bleeding (principal); J44.9 Chronic obstructive pulmonary disease, unspecified; N40.1 Benign prostatic hyperplasia with lower urinary tract symptoms; N13.8 Other obstructive and reflux uropathy; E78.5 Hyperlipidemia, unspecified; I10 Essential (primary) hypertension; F17.210 Nicotine dependence, cigarettes, uncomplicated; F25.1 Schizoaffective disorder, depressive type; E11.51 Type 2 diabetes mellitus with diabetic peripheral angiopathy without gangrene
CPT/HCPCS: 12345; 36416; 43239; 45378; 82962; 87077

== ENCOUNTER → 2020-08-07 08:20 | Outpatient (BNVA) | payer MEDICARE, MEDICAID, SELFPAY | PROVIDERS: PCP Internal Medicine; Visit Provider Social Worker Clinical | DX: F25.1 Schizoaffective disorder, depressive type (principal) | CPT/HCPCS: 90834 ==

== ENCOUNTER → 2020-08-13 08:31 | Outpatient (BNVA) | payer MEDICARE, MEDICAID, SELFPAY | PROVIDERS: PCP Internal Medicine; Visit Provider Nurse Practitioner Psychiatric/Mental Health | DX: F25.1 Schizoaffective disorder, depressive type (principal); F17.210 Nicotine dependence, cigarettes, uncomplicated | CPT/HCPCS: 99213 ==

== ENCOUNTER → 2020-08-14 09:45 | Outpatient (BNVA) | payer MEDICARE, MEDICAID, SELFPAY | PROVIDERS: PCP Internal Medicine; Visit Provider Nurse Practitioner Psychiatric/Mental Health | DX: Z79.899 Other long term (current) drug therapy (principal) | CPT/HCPCS: 80061; 83036 ==

== ENCOUNTER 2020-08-18 12:05 | Outpatient (CLI) | payer MEDICARE, MEDICAID, SELFPAY ==
[2020-08-18 13:39] LABS: Basophils % 0.4 %; Eosinophils # 0.5 10^3/uL (0.0-0.8); Eosinophils % 6.4 %; Hematocrit 28.7 % (42.0-52.0); Hemoglobin 9.6 g/dL (11.7-16.6); Lymphocytes # 1.6 10^3/uL (0.8-4.8); Lymphocytes % 21.5 %; Mean Corpuscular HGB Conc 33.4 g/dL (30.0-36.0); Mean Corpuscular Hemoglobin 31.4 pg (28.0-34.0); Mean Corpuscular Volume 93.8 fL (80-94); Mean Platelet Volume 9.3 fL (7.4-10.4); Monocytes # 0.5 10^3/uL (0.2-0.9); Monocytes % 6.4 %; Neutrophils % 64.9 %; Nucleated Red Blood Cells % 0 %; Platelet Count 318 10^3/cmm (130-400); Red Blood Count 3.06 10^6/uL (4.1-5.3); Red Cell Distribution Width 14.2 % (12.1-15.1); White Blood Count 7.4 10^3/uL (4.0-10.0)
[2020-08-18 13:59] LABS: Iron 99 ug/dL (59-158); Percent Saturation 42.4 % (20-50); Total Iron Binding Capacity 233 mcg/dl; Unsaturated Iron Binding 134 ug/dL (112-347)
--- NOTE | 2020-08-22 07:15 | ONC FU_ITS ---
Dr. Mehta Patient Follow-Up Note Patient: Hussein Fitch Unit #: [id number]: 1955 Dicatated By: Jan Mehta M.D.Date of Visit:Aug 18, 2020 Onc Med Follow-up/Prog Note Chief Complaint: Anemia. History of Present Illness: This is a 65 year-old man with anemia, at least some complement of which has been due to iron deficiency. In May 2013 he was admitted to the hospital with severe anemia, hemoglobin at 5.4 g with hematocrit 15.6%. The red cell indices were in the upper normal range. The white blood cell count was normal at 6900, and the platelet count was normal at 280,000. The uncorrected reticulocyte count was 7.7%. B12 and folate levels were normal. The serum iron was normal at 101 mcg/dL with transferrin saturation 24.9%. He was transfused a total of 4 units of packed red blood cells. He did undergo upper and lower GI endoscopy. The only abnormal finding was mild gastritis. He apparently had a previous history of GI bleeding due to peptic ulcer disease. Despite the negative endoscopy findings, the clinical picture appeared to be most consistent with acute GI blood loss. However, he also had undergone a left femoropopliteal bypass procedure a little over a month prior to that admission. I had seen him initially in June 2013. At that point his transferrin saturation was low at 11.4%, and I did opt to have him start parenteral iron replacement with Venofer, though his hemoglobin was just mildly decreased at 11.9 g. He did have 3/3 stools come back heme-positive. On 08/27/2019 his hemoglobin had dropped back down to 5.4 g, and he was again transfused PRBC. He required further transfusions in December 2013, and January 2014 he was again given parenteral iron replacement with Venofer. In May 2014 he underwent redo left femoropopliteal bypass. In September 2014 he was admitted to the hospital again with severe anemia, hemoglobin 4.5 g. That episode occurred while on warfarin with supratherapeutic INR. His other medical illnesses include hypertension, dyslipidemia, type 2 diabetes, peripheral arterial disease, and COPD. He has had multiple surgeries on his right arm due to an MRSA infection. He also had 2 surgeries on his right foot. He underwent left fempop bypass in March 2013 and redo left fempop bypass in May 2014. He also had a previous angioplasty/stent procedure to the right leg. His prior GI evaluations included EGD and colonoscopy in May 2013, capsule endoscopy in April 2014, and EGD in October 2016. He has a history of smoking for close to 50 years, and he continues to smoke 1 pack of cigarettes daily. INTERIM HISTORY: His laboratory studies from 07/23/2019 showed recurrence of anemia with hemoglobin 8.8 g and hematocrit 26.8%. The red cell indices were in the low normal range. His serum iron studies showed transferrin saturation low at 8%. He also had a low B12 level at 173 pg/mL. He began B12 replacement. His stool hemoccult on 08/01/2019 was reported to be positive. He had undergone repeat EGD and colonoscopy by Dr. Garrett. The EGD showed mild gastritis. There were no abnormalities noted on the colonoscopy. There was no source of GI blood loss identified. I had seen him for a follow-up visit on 08/13/2019. His hemoglobin was down slightly but adequate at 10.0 g. His transferrin saturation was low at 5.8% with ferritin 17.0 ng/mL, consistent with iron deficiency. He was then given parenteral iron replacement with 2 infusions of Injectafer. A follow-up CBC on 10/02/2019 was unchanged with hemoglobin 10.2 g, white blood cell count 6500, and platelet count 287,000. His transferrin saturation, though, had increased to 28.9% and his ferritin had increased to 356 ng/mL. As of his follow-up visit in November 2019 he remained mildly anemic, hemoglobin 10.5 g, but with normal transferrin saturation at 31%. His repeat laboratory studies on 07/03/2020 showed stable hemoglobin at 10.3 g, but his serum iron studies show low transferrin saturation of 13%, consistent with iron deficiency. His ferritin was in the low normal range. As such, he was given additional parenteral iron replacement with 2 infusions of Injectafer. He is seen for a scheduled visit. He did notice improvement in his energy following the Injectafer infusions last month. He still has limited activity, but he is able to do light work. ECOG score is 1. His appetite is about the same. He has lost weight, though. He does not have fever. He occasionally wakes up sweating. He has some shortness of breath, but his breathing has been pretty good. He has not been having cough and he does not complain of chest pain. He has a little bit of heartburn. His stools are watery a lot of times, but he has not been aware of any blood in the stool. Bladder function has been okay. He has no significant joint or bone pain. He does complain that he feels dizzy, lightheaded, or wobbly at times. He has numbness/tingling in his left foot. He has no other focal neurologic symptoms. He does complain that he has pretty bad anxiety. Medications: Abilify 1 Tablet (of 5 mg) Oral daily, Aspirin 1 (81 mg) Tablet Oral daily, busPIRone HCl 1 Tablet (of 15 mg) Oral daily, Clindamycin HCl 3 Capsule (of 150 mg) Oral t.i.d., Colace 1 Capsule (of 100 mg) Oral b.i.d., Ferrous Sulfate 1 Tablet (of 325 (65 fe) mg) Oral q on Every Other Day, Gabapentin 1 Capsule (of 300 mg) Oral t.i.d., glipiZIDE XL 1 Tablet (of 2.5 mg) Tablet SR 24 HR Oral daily, metFORMIN HCl 1 Tablet (of 850 mg) Oral daily, Metoprolol Tartrate 0.5 Tablet (of 25 mg) Oral b.i.d., Potassium Chloride ER 1 Tablet (of 20 meq) Tablet, controlled release Oral b.i.d., Pravastatin Sodium 1 (80 mg) Tablet Oral at bedtime, PriLOSEC OTC 1 Tablet (of 20 mg) Tablet, enteric coated Oral daily, Sildenafil Citrate 1 Tablet (of 50 mg) Oral PRN, Vitamin C 1 Capsule (of 500 mg) Oral daily Allergies: No Known Allergies. Review of Systems: Constitutional - He does not have good energy, but he is able to do light work at home. Appetite is about the same. His weight is stable. He has not had fever. He occasionally wakes up with sweating. ECOG score is 1, ENMT - No sinus congestion/drainage. No mouth sores. No sore throat or difficulty swallowing, Hematologic/Lymphatic - He has easy bruising, Respiratory - He has some shortness of breath, but his breathing is pretty good. No cough. No pleuritic pain or hemoptysis, Cardiovascular - No angina pain. No palpitations, Gastrointestinal - No nausea or vomiting. He has a little heartburn. He says his bowels are watery a lot of times. He has not recently been aware of any blood in the stool, Genitourinary (M) - No dysuria or hematuria. No urinary frequency. No urgency or incontinence, Musculoskeletal - No joint or bone pain, Integumentary - No skin rash, Neurologic - No headache. He sometimes feels dizzy, lightheaded, or wobbly. He has numbness/tingling in his left foot. No other focal neurologic symptoms, Psychiatric - He has pretty bad anxiety. No depression. He does not sleep well. Vital Signs: Performed on Aug 18, 2020 15:23 Height - 71.00 in Weight - 139.2 lbs (LOW) BSA - 1.81 sq.m BMI - 19.41 Temperature - 98.2 F (LOW) Pulse - 99 /min Respiration - 18 /min BP - 136/63 mm(hg) O2 Sat - 98 % Pain - 0 Physical Examination: Constitutional - He does not appear acutely ill, Eyes - Sclerae nonicteric. Conjunctivae clear, ENMT - No lesions noted in the oral cavity, Hematologic/Lymphatic - No cervical, clavicular or axillary adenopathy, Respiratory - Lungs sound clear with some decrease in air movement bilaterally, Cardiovascular - Heart rhythm is regular. There is a II/ systolic murmur. There is no gallop or rub noted, Abdomen - Soft. Liver and spleen are not enlarged. There is no abdominal mass or ascites noted and no inguinal adenopathy, Extremities - No edema. He has extensive purpura, Neurologic - No focal neurologic deficits noted. Lab/Imaging: Test performed on Aug 18, 2020 12:18 Iron 99 mcg/dL Iron Binding Capacity (TIBC) 233 mcg/dl % Iron Saturation 42.4 % UIBC 134 mcg/dL Retic Count % 2.0100 % WBC 7.4 10 3/uL RBC 3.06 10 6/uL HGB 9.6 g/dL HCT 28.7 % MCV 93.8 fL MCH 31.4 pg MCHC 33.4 g/dL RDW 14.2 % Platelet Count 318 10 3/cmm MPV 9.3 fL Neutrophils 4.80 10 3/uL Lymphocytes 1.6 10 3/uL Monocytes 0.5 10 3/uL Eosinophils 0.5 10 3/uL Basophils 0.0 10 3/uL Neutrophil % 64.9 % Lymphocyte % 21.5 % Monocyte % 6.4 % Eosinophil % 6.4 % Basophils % 0.4 % NRBC % 0 % Impression: 1. Patient with recurrent episodes of severe anemia. This is almost certainly to due to GI blood loss, as he has had heme positive stool on multiple occasions. The exact source has not been determined despite repeated GI endoscopy studies and a capsule endoscopy study in 2013. He has associated iron deficiency which failed to correct on oral iron supplementation. 2. He also was found to have evidence of B12 deficiency, for which he has started B12 replacement. 3. He has had chronic diarrhea, and he has had significant weight loss. 4. He has shortness of breath and cough, and he is at risk for lung cancer, as he has a near 50-year pack smoking history. His other medical illnesses include: 5. Hypertension. 6. Hyperlipidemia. 7. Type II diabetes. 8. Peripheral arterial disease. 9. COPD. 10. History of MRSA infections. 11. Benign prostatic hypertrophy. 12. Chronic anxiety. He had remained mildly anemic despite parenteral iron replacement and B12 injections. The cause was uncertain, though ongoing GI blood loss was suspected,, as he reportedly has a heme positive stool. As of 07/03/2020 his hemoglobin was stable at 10.3 g, but his transferrin saturation was low at 13%, consistent with iron deficiency. He was given additional parenteral iron replacement with 2 infusions of Injectafer. He tolerated it well, and since then he has been feeling somewhat better. His transferrin saturation now is in normal range at 42%. However, he remains moderately anemic with hemoglobin 9.6 g. Plan: At least for now he just remains on observation/expectant management he will be scheduled for a follow-up visit in 1 month. If he continues to have unexplained anemia, he will need to undergo bone marrow aspiration/biopsy. Signed By: Jan Mehta M.D. <<Signature on File>>
== END 2020-08-18 12:06 | disposition home or self-care (01) ==
LOC: ONCMED 12:08
PROVIDERS: PCP Internal Medicine; Visit Provider Internal Medicine Medical Oncology
DX: D64.9 Anemia, unspecified (principal); K92.1 Melena; E53.8 Deficiency of other specified B group vitamins; K52.9 Noninfective gastroenteritis and colitis, unspecified; R05 Cough; R06.02 Shortness of breath; F17.210 Nicotine dependence, cigarettes, uncomplicated; I10 Essential (primary) hypertension; E78.5 Hyperlipidemia, unspecified; E11.51 Type 2 diabetes mellitus with diabetic peripheral angiopathy without gangrene; J44.9 Chronic obstructive pulmonary disease, unspecified; Z86.14 Personal history of Methicillin resistant Staphylococcus aureus infection; N40.0 Benign prostatic hyperplasia without lower urinary tract symptoms; F41.9 Anxiety disorder, unspecified
CPT/HCPCS: 83540; 83550; 85025; 85045; 99214

== ENCOUNTER → 2020-08-27 08:13 | Outpatient (BNVA) | payer MEDICARE, MEDICAID, SELFPAY | PROVIDERS: PCP Internal Medicine; Visit Provider Social Worker Clinical | DX: F25.1 Schizoaffective disorder, depressive type (principal) | CPT/HCPCS: 90834 ==

== ENCOUNTER 2020-09-24 10:47 | Outpatient (CLI) | payer MEDICARE, MEDICAID, SELFPAY ==
[2020-09-24 11:56] LABS: Basophils # 0.1 10^3/uL (0.0-0.1); Basophils % 1.1 %; Eosinophils # 0.8 10^3/uL (0.0-0.8); Eosinophils % 10.7 %; Hematocrit 27.2 % (42.0-52.0); Hemoglobin 8.9 g/dL (11.7-16.6); Lymphocytes # 1.4 10^3/uL (0.8-4.8); Lymphocytes % 18.5 %; Mean Corpuscular HGB Conc 32.7 g/dL (30.0-36.0); Mean Corpuscular Hemoglobin 31.3 pg (28.0-34.0); Mean Corpuscular Volume 95.8 fL (80-94); Mean Platelet Volume 8.8 fL (7.4-10.4); Monocytes # 0.5 10^3/uL (0.2-0.9); Monocytes % 6.4 %; Neutrophils % 62.9 %; Nucleated Red Blood Cells % 0 %; Platelet Count 287 10^3/cmm (130-400); Red Blood Count 2.84 10^6/uL (4.1-5.3); Red Cell Distribution Width 12.8 % (12.1-15.1); White Blood Count 7.5 10^3/uL (4.0-10.0)
[2020-09-24 12:15] LABS: Alanine Aminotransferase 15 U/L (0-41); Albumin Level 4.2 g/dL (3.5-5.2); Alkaline Phosphatase 105 IU/L (40-130); Anion Gap 11.5 (5-19); Aspartate Amino Transferase 12 U/L (0-40); Blood Urea Nitrogen 21 mg/dL (8-23); Calcium 8.9 mg/dL (8.5-10.5); Carbon Dioxide 27 mmol/L (22-29); Chloride 96 mmol/L (98-107); Ferritin 292 ng/mL (30-400); Globulin 2.7 g/dL (1.3-4.6); Glucose 123 mg/dL (65-115); Iron 71 ug/dL (59-158); Lactate Dehydrogenase 150 U/L (135-225); Osmolality Calculated 272 mOsm/kg (285-295); Percent Saturation 29.8 % (20-50); Potassium 5.5 mmol/L (3.5-5.1); Sodium 129 mmol/L (136-145); Total Bilirubin 0.2 mg/dL (0.15-1.2); Total Iron Binding Capacity 238 mcg/dl; Total Protein 6.9 g/dL (6.6-8.7); Unsaturated Iron Binding 167 ug/dL (112-347)
[2020-09-24 12:37] LABS: Erythrocyte Sedimentation Rate 42 mm/hr (0-10)
--- NOTE | 2020-09-24 17:49 | ONC FU_ITS ---
Dr. Mehta Patient Follow-Up Note Patient: Hussein Fitch Unit #: [id number]: 1955 Dicatated By: Jan Mehta M.D.Date of Visit:Sep 24, 2020 Onc Med Follow-up/Prog Note Chief Complaint: Anemia. History of Present Illness: This is a 65 year-old man with anemia, at least some complement of which has been due to iron deficiency. In May 2013 he was admitted to the hospital with severe anemia, hemoglobin at 5.4 g with hematocrit 15.6%. The red cell indices were in the upper normal range. The white blood cell count was normal at 6900, and the platelet count was normal at 280,000. The uncorrected reticulocyte count was 7.7%. B12 and folate levels were normal. The serum iron was normal at 101 mcg/dL with transferrin saturation 24.9%. He was transfused a total of 4 units of packed red blood cells. He did undergo upper and lower GI endoscopy. The only abnormal finding was mild gastritis. He apparently had a previous history of GI bleeding due to peptic ulcer disease. Despite the negative endoscopy findings, the clinical picture appeared to be most consistent with acute GI blood loss. However, he also had undergone a left femoropopliteal bypass procedure a little over a month prior to that admission. I had seen him initially in June 2013. At that point his transferrin saturation was low at 11.4%, and I did opt to have him start parenteral iron replacement with Venofer, though his hemoglobin was just mildly decreased at 11.9 g. He did have 3/3 stools come back heme-positive. On 08/27/2019 his hemoglobin had dropped back down to 5.4 g, and he was again transfused PRBC. He required further transfusions in December 2013, and January 2014 he was again given parenteral iron replacement with Venofer. In May 2014 he underwent redo left femoropopliteal bypass. In September 2014 he was admitted to the hospital again with severe anemia, hemoglobin 4.5 g. That episode occurred while on warfarin with supratherapeutic INR. His other medical illnesses include hypertension, dyslipidemia, type 2 diabetes, peripheral arterial disease, and COPD. He has had multiple surgeries on his right arm due to an MRSA infection. He also had 2 surgeries on his right foot. He underwent left fempop bypass in March 2013 and redo left fempop bypass in May 2014. He also had a previous angioplasty/stent procedure to the right leg. His prior GI evaluations included EGD and colonoscopy in May 2013, capsule endoscopy in April 2014, and EGD in October 2016. He has a history of smoking for close to 50 years, and he continues to smoke 1 pack of cigarettes daily. INTERIM HISTORY: His laboratory studies from 07/23/2019 showed recurrence of anemia with hemoglobin 8.8 g and hematocrit 26.8%. The red cell indices were in the low normal range. His serum iron studies showed transferrin saturation low at 8%. He also had a low B12 level at 173 pg/mL. He began B12 replacement. His stool hemoccult on 08/01/2019 was reported to be positive. He had undergone repeat EGD and colonoscopy by Dr. Garrett. The EGD showed mild gastritis. There were no abnormalities noted on the colonoscopy. There was no source of GI blood loss identified. I had seen him for a follow-up visit on 08/13/2019. His hemoglobin was down slightly but adequate at 10.0 g. His transferrin saturation was low at 5.8% with ferritin 17.0 ng/mL, consistent with iron deficiency. He was then given parenteral iron replacement with 2 infusions of Injectafer. A follow-up CBC on 10/02/2019 was unchanged with hemoglobin 10.2 g, white blood cell count 6500, and platelet count 287,000. His transferrin saturation, though, had increased to 28.9% and his ferritin had increased to 356 ng/mL. As of his follow-up visit in November 2019 he remained mildly anemic, hemoglobin 10.5 g, but with normal transferrin saturation at 31%. His repeat laboratory studies on 07/03/2020 showed stable hemoglobin at 10.3 g, but his serum iron studies show low transferrin saturation of 13%, consistent with iron deficiency. His ferritin was in the low normal range. As such, he was given additional parenteral iron replacement with 2 infusions of Injectafer. He was then seen for a follow-up visit on 08/18/2020. He was still moderately anemic, hemoglobin 9.6 g. His serum iron studies showed normal transferrin saturation of 42.4%, so that the anemia did not appear to be due to iron deficiency. He is seen for a follow-up visit. He complains that he does not have a lot of energy, but he is able to do light work. ECOG score is 1. His appetite has been a little better, and his weight is up a few pounds. He does not have fever or night sweats. He has some shortness of breath, but he says his breathing is pretty good. He reports having a cigarette cough. He does not complain of chest pain. He has no GI complaints other than he still has diarrhea quite frequently. Bladder function has been okay. He does have some pain in his arms and in his right leg and foot, but that is chronic. He does not complain of headache. He sometimes has dizziness. He has no focal neurologic symptoms. Medications: Abilify 1 Tablet (of 5 mg) Oral daily, Aspirin 1 (81 mg) Tablet Oral daily, busPIRone HCl 1 Tablet (of 15 mg) Oral daily, Clindamycin HCl 3 Capsule (of 150 mg) Oral t.i.d., Colace 1 Capsule (of 100 mg) Oral b.i.d., Ferrous Sulfate 1 Tablet (of 325 (65 fe) mg) Oral q on Every Other Day, Gabapentin 1 Capsule (of 300 mg) Oral t.i.d., glipiZIDE XL 1 Tablet (of 2.5 mg) Tablet SR 24 HR Oral daily, metFORMIN HCl 1 Tablet (of 850 mg) Oral daily, Metoprolol Tartrate 0.5 Tablet (of 25 mg) Oral b.i.d., Potassium Chloride ER 1 Tablet (of 20 meq) Tablet, controlled release Oral b.i.d., Pravastatin Sodium 1 (80 mg) Tablet Oral at bedtime, PriLOSEC OTC 1 Tablet (of 20 mg) Tablet, enteric coated Oral daily, Sildenafil Citrate 1 Tablet (of 50 mg) Oral PRN, Vitamin C 1 Capsule (of 500 mg) Oral daily Allergies: No Known Allergies. Review of Systems: Constitutional - He does not have a lot of energy, but he is able to do light work. His appetite is a little better. His weight is up a few pounds. He does not have fever or night sweats. ECOG score is 1, ENMT - No sinus congestion/drainage. No mouth sores. No sore throat or difficulty swallowing, Hematologic/Lymphatic - No abnormal bruising or bleeding, Respiratory - He has some shortness of breath, but his breathing is pretty good. He has a cigarette cough. No pleuritic pain or hemoptysis, Cardiovascular - No angina pain. No palpitations, Gastrointestinal - No nausea or vomiting. No heartburn or acid reflux. He still complains that he has diarrhea frequently. No blood in the stool or black stools, Genitourinary (M) - No dysuria or hematuria. No urinary frequency. No urgency or incontinence, Musculoskeletal - He has some pain in his arms and in his right leg and foot, Integumentary - No skin rash, Neurologic - No headache. He sometimes has dizziness. No numbness or tingling. No other focal neurologic symptoms, Psychiatric - He has anxiety/depression, but it is pretty well managed with medication. He does not sleep well, as he tends to wake up frequently at night. Vital Signs: Performed on Sep 24, 2020 13:10 Height - 71.00 in Weight - 145.4 lbs (HIGH) BSA - 1.84 sq.m BMI - 20.28 Temperature - 97.6 F (LOW) Pulse - 92 /min Respiration - 21 /min BP - 156/60 mm(hg) (HIGH) O2 Sat - 95 % (LOW) Pain - 0 Physical Examination: Constitutional - He appears chronically ill, Eyes - Sclerae nonicteric. Conjunctivae clear, ENMT - No lesions noted in the oral cavity, Hematologic/Lymphatic - No cervical, clavicular or axillary adenopathy, Respiratory - Lungs sound clear with some decrease in air movement bilaterally, Cardiovascular - Heart rhythm is regular. There is a II/ systolic murmur. There is no gallop or rub noted, Abdomen - Soft. Liver and spleen are not enlarged. There is no abdominal mass or ascites noted and no inguinal adenopathy, Extremities - No edema. He has extensive purpura, Neurologic - No focal neurologic deficits noted. Lab/Imaging: Test performed on Sep 24, 2020 11:35 Ferritin 292 ng/mL Iron 71 mcg/dL LDH (Total) 150 U/L Sodium 129 mmol/L Iron Binding Capacity (TIBC) 238 mcg/dl Potassium 5.5 mmol/L % Iron Saturation 29.8 % Chloride 96 mmol/L CO2 27 mmol/L UIBC 167 mcg/dL Anion Gap 11.5 BUN 21 mg/dL Creatinine 0.8 mg/dL Cr Clearance (Est) 85.88 mL/min eGFR 97.0 mL/min Glucose 123 mg/dL Osmolality - Calculated 272 mOsm/kg Calcium 8.9 mg/dL Protein, Total 6.9 g/dL Albumin 4.2 g/dL Globulin 2.7 g/dL Bilirubin, Total 0.2 mg/dL ALT (SGPT) 15 U/L AST (SGOT) 12 U/L Alkaline Phosphatase 105 IU/L ESR (Sed Rate) 42 mm/hr Retic Count % 2.1600 % WBC 7.5 10 3/uL RBC 2.84 10 6/uL HGB 8.9 g/dL HCT 27.2 % MCV 95.8 fL MCH 31.3 pg MCHC 32.7 g/dL RDW 12.8 % Platelet Count 287 10 3/cmm MPV 8.8 fL Neutrophils 4.70 10 3/uL Lymphocytes 1.4 10 3/uL Monocytes 0.5 10 3/uL Eosinophils 0.8 10 3/uL Basophils 0.1 10 3/uL Neutrophil % 62.9 % Lymphocyte % 18.5 % Monocyte % 6.4 % Eosinophil % 10.7 % Basophils % 1.1 % NRBC % 0 % Impression: 1. Patient with recurrent episodes of severe anemia. Initially it appeared to be due to GI blood loss, as he has had heme positive stool on multiple occasions. The exact source had not been determined despite repeated GI endoscopy studies and a capsule endoscopy study in 2013. He had associated iron deficiency which failed to correct on oral iron supplementation. 2. He also was found to have evidence of B12 deficiency, for which he started B12 replacement. 3. He now remains moderately anemic despite B12 replacement and despite having been given parenteral iron replacement on multiple occasions, most recently in June 2020. 4. He has had chronic diarrhea, and he has had significant weight loss. His other medical illnesses include: 5. Hypertension. 6. Hyperlipidemia. 7. Type II diabetes. 8. Peripheral arterial disease. 9. COPD. 10. History of MRSA infections. 11. Benign prostatic hypertrophy. 12. Chronic anxiety. He has continued to show gradual decline in hemoglobin/hematocrit levels despite having been given parenteral iron replacement in June. The cause of the anemia at this point is uncertain, as the transferrin saturation and ferritin are normal. Plan: He is advised now to undergo bone marrow aspiration/biopsy, as he is significantly anemic, and the laboratory studies do not indicate a specific cause. Signed By: Jan Mehta M.D. <<Signature on File>>
== END 2020-09-24 10:48 | disposition home or self-care (01) ==
LOC: ONCMED 10:49
PROVIDERS: PCP Internal Medicine; Visit Provider Internal Medicine Medical Oncology
DX: D50.9 Iron deficiency anemia, unspecified (principal); E53.8 Deficiency of other specified B group vitamins; R19.7 Diarrhea, unspecified; R63.4 Abnormal weight loss; I10 Essential (primary) hypertension; E78.5 Hyperlipidemia, unspecified; E11.51 Type 2 diabetes mellitus with diabetic peripheral angiopathy without gangrene; J44.9 Chronic obstructive pulmonary disease, unspecified; N40.0 Benign prostatic hyperplasia without lower urinary tract symptoms; F41.9 Anxiety disorder, unspecified; Z86.14 Personal history of Methicillin resistant Staphylococcus aureus infection; Z79.84 Long term (current) use of oral hypoglycemic drugs
CPT/HCPCS: 36415; 80053; 82728; 83540; 83550; 83615; 85025; 85045; 85651; 99214

== ENCOUNTER → 2020-09-29 07:51 | Outpatient (BNVA) | payer MEDICARE, MEDICAID, SELFPAY | PROVIDERS: PCP Internal Medicine; Visit Provider Social Worker Clinical | DX: F25.1 Schizoaffective disorder, depressive type (principal) | CPT/HCPCS: 90834 ==

== ENCOUNTER → 2020-10-11 10:51 | Outpatient (BNVA) | payer MEDICARE, MEDICAID, SELFPAY | PROVIDERS: PCP Internal Medicine; Visit Provider Internal Medicine Medical Oncology | DX: Z20.828 Contact with and (suspected) exposure to other viral communicable diseases (principal); Z01.812 Encounter for preprocedural laboratory examination | CPT/HCPCS: 87635 ==

== ENCOUNTER → 2020-10-16 08:47 | Day surgery (SDC) | payer MEDICARE, MEDICAID, SELFPAY ==
[2020-10-15 14:09] VITALS: BMI 19.5
[2020-10-16 09:54] VITALS: BP 178/82; PULSE 98; RESP 18; TEMP 36.8; O2SAT 100
[2020-10-16] MEDS: sodium chloride 0.9% 1,000 ML 30 ML IV (10:03)
[2020-10-16 10:08] LABS: Glucose Point of Care 120 mg/dL (70-110)
[2020-10-16 10:10] LABS: Basophils # 0.1 10^3/uL (0.0-0.1); Basophils % 0.7 %; Eosinophils # 0.4 10^3/uL (0.0-0.8); Eosinophils % 6.1 %; Hematocrit 32.1 % (42.0-52.0); Hemoglobin 10.3 g/dL (11.7-16.6); Lymphocytes # 1.4 10^3/uL (0.8-4.8); Lymphocytes % 20.2 %; Mean Corpuscular HGB Conc 32.1 g/dL (30.0-36.0); Mean Corpuscular Hemoglobin 30.6 pg (28.0-34.0); Mean Corpuscular Volume 95.3 fL (80-94); Mean Platelet Volume 8.5 fL (7.4-10.4); Monocytes # 0.5 10^3/uL (0.2-0.9); Monocytes % 6.8 %; Neutrophils # 4.51 10^3/uL (1.8-7.7); Neutrophils % 65.8 %; Nucleated Red Blood Cells % 0 %; Platelet Count 339 10^3/cmm (130-400); Red Blood Count 3.37 10^6/uL (4.1-5.3); Red Cell Distribution Width 12.1 % (12.1-15.1); White Blood Count 6.9 10^3/uL (4.0-10.0)
--- NOTE | 2020-10-16 10:12 | P.ANESASSM_ITS ---
Pre-Anesthetic Assessment Pre-Anesthetic Assessment: Height/Weight: Height 1.8 m Weight 63.503 kg Temp Pulse Resp BP Pulse Ox 98.2 F 98 18 178/82 100 10/16/20 09:54 10/16/20 09:54 10/16/20 09:54 10/16/20 09:54 10/16/20 09:54 Preop Diagnosis: Blood in stool Proposed Procedure: Operation Date: 10/16/20 11:00 Proposed Procedures p Bone Marrow Biopsy With Aspiration(Not Applicable) - Tammy Rogers MD Familial anesthetic complications: NOne Was Beta Robert taken within 24 hours: N/A Last intake: Intake Last Liquid Date 10/15/20 Last Liquid Time 20:00 Last Solid Date 10/15/20 Last Solid Time 20:00 Social: Social History: Alcohol and Tobacco Exam: Pre-Anes Outpt Exam: alert, oriented x 3, clear to auscultation bilaterally and regular rate & rhythm Airway: Cervical ROM: WNL MP: 1 Dentition: Full Pulmonary: Pulmonary: COPD CV/HEM: CV/HEM: DVT and PVD Metabolic: Metabolic: DM Anesthetic Plan: ASA status: 3 Anesthesia: MAC Risk of > 500 ml blood loss (7ml/kg in children): No Meds/Allergies Current Medications: Current Medications Generic Name Dose Route Start Last Admin Trade Name Freq PRN Reason Stop Dose Admin Sodium Chloride 1,000 mls @ 30 ml s/hr 10/16/20 09:45 10/16/20 10:03 Sodium Chloride 0.9% IV 10/17/20 09:44 30 mls/hr .Q24H CAMILO Administration PFSH Anesthesia PFSH: Medical History BPH with obstruction/lower urinary tract symptoms COPD (chronic obstructive pulmonary disease) Diabetes Dyslipidemia Essential hypertension 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 Lower urinary tract symptoms (LUTS) Nicotine dependence, cigarettes, uncomplicated Polyuria Schizoaffective disorder, depressive type Surgical History H/O colonoscopy yrs ago H/O esophagogastroduodenoscopy H/O foot surgery S/P angioplasty Status post femoral-popliteal bypass surgery Family History Family/Other Stroke Cancer Diabetes Hypertension Denies family history of Anesthesia complication Bleeding disorder Social History Smoking and tobacco status: current every day smoker Alcohol intake: never Household members: other Details: room mate Marital status: Current occupational status: disabled History of recent travel: No Data Anesthesia CBC & Chem 7: 10/16/20 10:00 Other Labs: Laboratory Results - last 48 hr 10/16/20 10/16/20 10:00 10:04 WBC 6.9 RBC 3.37 L Hgb 10.3 L Hct 32.1 L MCV 95.3 H MCH 30.6 MCHC 32.1 RDW 12.1 Plt Count 339 MPV 8.5 Neut % (Auto) 65.8 Lymph % (Auto) 20.2 [place]ayson % (Auto) 6.8 Eos % (Auto) 6.1 Baso % (Auto) 0.7 Neut # (Auto) 4.51 Lymph # (Auto) 1.4 Grayson # (Auto) 0.5 Eos # (Auto) 0.4 Baso # (Auto) 0.1 Nucleated RBC % (auto) 0 Nucleated RBCs # 0.0 POC Glucose 120 Cardiac Studies: No Data to Display
== END | disposition home or self-care (01) ==
PROVIDERS: PCP Internal Medicine; Visit Provider Internal Medicine Hematology & Oncology
PROC: (CPT 38221; principal; 2020-10-16 11:00)
DX: D64.9 Anemia, unspecified (principal)
CPT/HCPCS: 36416; 82962; 85025; J7030

== ENCOUNTER → 2020-10-27 08:34 | Outpatient (BNVA) | payer MEDICARE, MEDICAID, SELFPAY | PROVIDERS: PCP Internal Medicine; Visit Provider Social Worker Clinical | DX: F25.1 Schizoaffective disorder, depressive type (principal) | CPT/HCPCS: 90834 ==

== ENCOUNTER → 2020-11-05 07:46 | Outpatient (BNVA) | payer MEDICARE, MEDICAID, SELFPAY | PROVIDERS: PCP Internal Medicine; Visit Provider Nurse Practitioner Psychiatric/Mental Health | DX: F25.1 Schizoaffective disorder, depressive type (principal); F17.210 Nicotine dependence, cigarettes, uncomplicated | CPT/HCPCS: 99213 ==

== ENCOUNTER 2020-11-11 11:42 | Emergency (ER) | payer MEDICARE, MEDICAID, SELFPAY ==
--- NOTE | 2020-11-11 11:43 | XR_ITS ---
WS: [id number] XR foot RT min 3V* [id number] REASON FOR EXAM: injury FINDINGS: Joint spaces of the right foot relatively intact except for narrowing of the metatarsophalangeal join t of the fifth toe. Deformity and subtle change in cortex at the base of the proximal phalanx of the second and third toe s. No other focal bony abnormality. XR/XR foot RT min 3V* [id number] IMPRESSION: Possible nondisplaced fractures at the base of the second and third proximal ph alanx. Correlate with point tenderness.
[2020-11-11 11:56] VITALS: BP 113/70; PULSE 92; RESP 18; TEMP 36.4; O2SAT 98; BMI 20.2
--- NOTE | 2020-11-11 12:22 | W.ED.EXTPRO ---
HPI - Extremity Problem General: Chief complaint: Extremity Injury, Lower Stated complaint: RIGHT FOOT INJURY Time Seen by Provider: 11/11/20 12:02 Source: patient Mode of arrival: ambulatory Limitations: no limitations History of Present Illness: HPI Narrative: Patient comes in for complaints of right foot pain. Patient reports yesterday he was walking downtown and his right leg gave out on him. Causing him to twist his foot. Patient reported swelling and pain to the foot which has improved throughout the night. Patient continues to have difficulty bearing weight to the foot. Patient has a history of peripheral vascular disease to the right lower extremity. 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 Lower urinary tract symptoms (LUTS) Nicotine dependence, cigarettes, uncomplicated Polyuria Schizoaffective disorder, depressive type Surgical History H/O colonoscopy yrs ago H/O esophagogastroduodenoscopy H/O foot surgery S/P angioplasty Status post femoral-popliteal bypass surgery Family History Family/Other Stroke Cancer Diabetes Hypertension Denies family history of Anesthesia complication Bleeding disorder Social History Smoking and tobacco status: current every day smoker Alcohol intake: never Household members: other Details: room mate Marital status: Current occupational status: disabled History of recent travel: No Physical Exam Const: COMMON NORMALS: no acute distress and patient oriented x3 GENERAL APPEARANCE: cooperative HENMT: COMMON NORMALS: normocephalic and Normal external nose present HEAD & SCALP: normal to inspection and normocephalic NOSE: Normal external nose present MOUTH: Normal oral and palatal mucosa present Eye: GENERAL EYE: appearance normal, both eyes and all related structures Neck/C-Spine: COMMON NORMALS: full ROM Chest: COMMONS NORMALS: normal inspection of the chest Resp: COMMON NORMALS: normal respiratory effort EFFORT & INSPECTION: Yes able to speak in complete sentences Cardio: COMMON NORMALS: regular rate and regular rhythm RATE: regular rate RHYTHM: regular rhythm GI: COMMON NORMALS: non-tender Extremity: NARRATIVE EXTREMITY EXAM: Ecchymosis and swelling is noted to the second third and fourth metatarsals of the right foot. Patient does have decreased circulation which is known for patient. Capillary refill is sluggish. Warmth is noted to the foot. No obvious deformity is noted. Neuro: COMMON NORMALS: patient oriented x3 and moves all extremities Psych: COMMON NORMALS: mental status grossly normal and cooperative Skin: COMMON NORMALS: no rashes or lesions noted GENERAL SKIN EXAM: no rashes or lesions noted Course Vital Signs: Vital signs: Vital Signs Temperature 97.6 F 11/11/20 11:56 Pulse Rate 92 11/11/20 11:56 Respiratory Rate 18 11/11/20 11:56 Blood Pressure 113/70 11/11/20 11:56 Pulse Oximetry 98 11/11/20 11:56 MDM - Extremity (Nontraumatic) MDM Narrative: Medical decision making narrative: Patient presents for evaluation of injury to the right foot that occurred yesterday. On exam patient has some ecchymosis and swelling to the right foot. No other obvious injuries are noted. Differential diagnosis includes fracture, contusion, sprain. X-ray noted fracture to the second and third proximal phalanx of the foot.. Patient was placed in a supportive walking boot to assist with pain and swelling. Patient was encouraged to maintain mobility as tolerated. Patient was recommended to follow-up with primary care as needed. Discharge Plan Discharge Patient Disposition: Home Clinical Impression: Closed fracture of proximal phalanx of toe, PVD (peripheral vascular disease) Sprain of foot, right Qualifiers: Encounter type: initial encounter Qualified Code(s): S93.601A - Unspecified sprain of right foot, initial encounter Condition: Stable Prescriptions: New hydrocodone-acetaminophen 5-325 mg tablet 1 tab PO Q8H PRN (Reason: pain) Qty: 10 RF: 0 No Action gabapentin 300 mg capsule 300 mg PO TID RF: 0 tamsulosin 0.4 mg capsule 0.4 mg PO DAILY RF: 0 ascorbic acid (vitamin C) 500 mg capsule 500 mg PO DAILY RF: 0 lisinopril 10 mg tablet 10 mg PO DAILY RF: 0 ferrous sulfate 325 mg (65 mg iron) tablet 325 mg PO BID RF: 0 vitamin B complex [B Complex-Vitamin B12] Tablet 1 tab PO QAM RF: 0 cilostazol 100 mg tablet 100 mg PO BID RF: 0 metformin 850 mg tablet 850 mg PO BID RF: 0 pravastatin 80 mg tablet 80 mg PO DAILY RF: 0 finasteride 5 mg tablet 5 mg PO DAILY RF: 0 Prilosec 10 mg susp,delayed release for recon 20 mg PO BID RF: 0 metoprolol tartrate 25 mg tablet 25 mg PO DAILY RF: 0 aripiprazole 15 mg tablet 15 mg PO .morning Qty: 90 RF: 2 bupropion HCl 300 mg tablet extended release 24 hr 300 mg PO QAM Qty: 90 RF: 2 buspirone 15 mg tablet 30 mg PO BID Qty: 120 RF: 4 mirtazapine [Remeron] 15 mg tablet 15 mg PO .QHS Qty: 90 RF: 2 Discharge Orders: Discharge ED (Routine); Ordered 11/11/20 Ordered By: Damien Lopes Referrals: Marti Pittman DO [Primary Care Provider] - Discharge Diet: Usual diet Discharge Activity: Increase activity as tolerated Patient Instructions: Foot Sprain (ED) Activity Restrictions/Additional Instructions: Activity as tolerated. Medications as directed. Wear walking boot for the next 1 to 2 weeks until he can bear weight comfortably on the foot without pain. Use a cane to assist with walking. Follow-up with primary care or specialist for further treatment. Return to the emergency department for new concerns. Coding Level of Care Code ED Spanish Teacher for Becca Fwjudah Exam Comprehensive
[2020-11-11] MEDS: HYDROcodone-acetaminophen 5-325 mg Tablet 1 TAB PO (12:49)
== END 2020-11-11 13:45 | disposition home or self-care (01) ==
PROVIDERS: Emergency Provider Nurse Practitioner Family; PCP Internal Medicine
DX: S93.601A Unspecified sprain of right foot, initial encounter (principal); I73.9 Peripheral vascular disease, unspecified; S92.514A Nondisplaced fracture of proximal phalanx of right lesser toe(s), initial encounter for closed fracture; X50.1XXA Overexertion from prolonged static or awkward postures, initial encounter
CPT/HCPCS: 12345; 73630; 99281; 99283; L4361

== ENCOUNTER → 2020-11-18 09:37 | Outpatient (BNVA) | payer MEDICARE, MEDICAID, SELFPAY | PROVIDERS: PCP Internal Medicine; Visit Provider Podiatrist Foot & Ankle Surgery | DX: E11.42 Type 2 diabetes mellitus with diabetic polyneuropathy (principal); L84 Corns and callosities; S92.511A Displaced fracture of proximal phalanx of right lesser toe(s), initial encounter for closed fracture; X58.XXXA Exposure to other specified factors, initial encounter | CPT/HCPCS: 73630 ==

== ENCOUNTER → 2020-11-25 08:22 | Outpatient (BNVA) | payer MEDICARE, MEDICAID, SELFPAY | PROVIDERS: PCP Internal Medicine; Visit Provider Social Worker Clinical | DX: F25.1 Schizoaffective disorder, depressive type (principal) | CPT/HCPCS: 90791 ==

== ENCOUNTER → 2020-11-28 13:11 | Outpatient (BNVA) | payer MEDICARE, MEDICAID, SELFPAY | PROVIDERS: PCP Internal Medicine; Visit Provider Internal Medicine Hematology & Oncology | DX: Z20.828 Contact with and (suspected) exposure to other viral communicable diseases (principal); Z01.812 Encounter for preprocedural laboratory examination | CPT/HCPCS: 87635 ==

== ENCOUNTER 2020-12-04 10:26 | Day surgery (SDC) | payer MEDICARE, MEDICAID, SELFPAY ==
[2020-11-11 10:18] VITALS: BMI 20.2
[2020-12-02 14:57] VITALS: BMI 19.5
[2020-12-04 12:01] VITALS: BP 164/78; PULSE 81; RESP 18; TEMP 36.7; O2SAT 98
[2020-12-04] MEDS: sodium chloride 0.9% 1,000 ML 30 ML IV (12:17)
[2020-12-04 12:20] LABS: Glucose Point of Care 163 mg/dL (70-110)
--- NOTE | 2020-12-04 12:25 | ANES.PREANE2 ---
Pre-Anesthetic Assessment Pre-Anesthetic Assessment: Height/Weight: Height 1.8 m Weight 63.503 kg Temp Pulse Resp BP Pulse Ox 98.1 F 81 18 164/78 98 12/04/20 12:01 12/04/20 12:01 12/04/20 12:01 12/04/20 12:01 12/04/20 12:01 Preop Diagnosis: Blood in stool Proposed Procedure: Operation Date: 12/04/20 12:00 Proposed Procedures p Bone Marrow Biopsy With Aspiration d50.0 285.9 250.40b(Not Applicable) - Tammy Rogers MD Familial anesthetic complications: None Was Beta Robert taken within 24 hours: Yes Last intake: Intake Last Liquid Date 12/03/20 Last Liquid Time 21:00 Last Solid Date 12/03/20 Last Solid Time 21:00 Social: Social History: Alcohol and Tobacco Exam: Pre-Anes Outpt Exam: alert, oriented x 3 and regular rate & rhythm Additional Exam Findings (including area of procedure): coarse breath sounds b/l Airway: Cervical ROM: WNL MP: 2 Dentition: Full Pulmonary: Pulmonary: COPD CV/HEM: CV/HEM: Anemia, HTN and PVD Metabolic: Metabolic: DM Anesthetic Plan: ASA status: 3 Anesthesia: MAC Risk of > 500 ml blood loss (7ml/kg in children): No Meds/Allergies Current Medications: Current Medications Generic Name Dose Route Start Last Admin Trade Name Freq PRN Reason Stop Dose Admin Sodium Chloride 1,000 mls @ 30 ml s/hr 12/04/20 12:00 12/04/20 12:17 Sodium Chloride 0.9% IV 12/05/20 11:59 30 mls/hr .Q24H CAMILO Administration PFSH Anesthesia PFSH: Medical History (Updated 11/19/20 @ 00:00 by ) BPH with obstruction/lower urinary tract symptoms COPD (chronic obstructive pulmonary disease) Diabetes Dyslipidemia Essential hypertension 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 Lower urinary tract symptoms (LUTS) Nicotine dependence, cigarettes, uncomplicated Polyuria Schizoaffective disorder, depressive type Surgical History H/O colonoscopy yrs ago H/O esophagogastroduodenoscopy H/O foot surgery S/P angioplasty Status post femoral-popliteal bypass surgery Family History Family/Other Stroke Cancer Diabetes Hypertension Denies family history of Anesthesia complication Bleeding disorder Social History Smoking and tobacco status: current every day smoker Alcohol intake: never Household members: other Details: room mate Marital status: Current occupational status: disabled History of recent travel: No Current gender identity: Male Data Anesthesia Other Labs: Laboratory Results - last 48 hr 12/04/20 12:16 POC Glucose 163 H Cardiac Studies: No Data to Display
[2020-12-04 13:00] VITALS: BP 145/72; PULSE 78; RESP 18; TEMP 36.2; O2SAT 98
--- NOTE | 2020-12-04 13:02 | ANE.PACU2 ---
Inpatient post-anesthesia follow up: Airway intact: Yes Vital signs: Temperature 98.1 F Pulse Rate 81 Respiratory Rate 18 Blood Pressure 164/78 Pulse Oximetry 98 Oxygen Delivery Me thod Room Air Oxygen Flow Rate Fraction of Inspir ed Oxygen Hydration adequate: Yes Nausea and vomiting: No Pain level: 1 Mental status: Baseline
--- NOTE | 2020-12-04 13:03 | PM.BMB ---
Bone Marrow Biopsy Bone Marrow Biopsy: I was consulted by [] office regarding bone marrow biopsy on [Hussein Fitch]. Briefly, the patient is a [65] year old [male] with [history of anemia In the Outpatient Services Department, with nursing staff and laboratory technologists in attendance, the procedure was discussed with the patient. Appropriate consent form had been signed. Appropriate alternatives, benefits and risks of procedure were discussed with the patient and he was pre-operatively assessed with a history and physical by myself and cleared for the biopsy procedure. The patient did request IV sedation and that was provided by the Anesthesia Department. And under aseptic condition right posterior iliac area was cleaned and prepped, local anesthesia was given and about 15 cc of bone marrow aspirate and core biopsy was obtained. Patient tolerated procedure well. Hemostasis was obtained postprocedure nursing instructions were given specimen was sent for routine histopathology and flow cytometric and MDS panel Thank you for allowing me to participate in this patient's care and diagnosis. Coding Level of Care Code Acute Pantograph Ii Engraver for Becca Oliver
[2020-12-04 13:25] VITALS: BP 155/74; PULSE 82; RESP 18; O2SAT 98
[2020-12-08 08:47] LABS: Miscellaneous Test See Scanned Lab Rpt
[2020-12-15 13:30] LABS: Miscellaneous Test See Scanned Lab Rpt
== END 2020-12-04 13:45 | disposition home or self-care (01) ==
PROVIDERS: PCP Internal Medicine; Visit Provider Internal Medicine Hematology & Oncology
PROC: (CPT 38221; principal; 2020-12-04 12:00)
DX: D64.9 Anemia, unspecified (principal); J44.9 Chronic obstructive pulmonary disease, unspecified; I10 Essential (primary) hypertension; E11.9 Type 2 diabetes mellitus without complications; N40.1 Benign prostatic hyperplasia with lower urinary tract symptoms; N13.8 Other obstructive and reflux uropathy; E78.5 Hyperlipidemia, unspecified; F17.210 Nicotine dependence, cigarettes, uncomplicated
CPT/HCPCS: 12345; 36416; 38222; 82962; 88184; 88185; 88237; 88264; 88305; 88367; 88374; J2704; J7030

== ENCOUNTER → 2020-12-09 12:10 | Outpatient (BNVA) | payer MEDICARE, MEDICAID, SELFPAY | PROVIDERS: PCP Internal Medicine; Visit Provider Podiatrist Foot & Ankle Surgery | DX: E11.43 Type 2 diabetes mellitus with diabetic autonomic (poly)neuropathy (principal); L84 Corns and callosities; I73.9 Peripheral vascular disease, unspecified; E11.42 Type 2 diabetes mellitus with diabetic polyneuropathy; M79.671 Pain in right foot; M19.071 Primary osteoarthritis, right ankle and foot | CPT/HCPCS: 73630 ==

== ENCOUNTER → 2020-12-11 08:19 | Outpatient (BNVA) | payer MEDICARE, MEDICAID, SELFPAY | PROVIDERS: PCP Internal Medicine; Visit Provider Social Worker Clinical | DX: F25.1 Schizoaffective disorder, depressive type (principal) | CPT/HCPCS: 90834 ==

== ENCOUNTER → 2020-12-16 13:24 | Outpatient (BNVA) | payer MEDICARE, MEDICAID, SELFPAY | PROVIDERS: PCP Internal Medicine; Visit Provider Urology | DX: N40.1 Benign prostatic hyperplasia with lower urinary tract symptoms (principal); N13.8 Other obstructive and reflux uropathy; Z12.5 Encounter for screening for malignant neoplasm of prostate; R35.8 Other polyuria | CPT/HCPCS: 81003; G0103 ==

== ENCOUNTER → 2021-01-08 08:13 | Outpatient (BNVA) | payer MEDICARE, MEDICAID, SELFPAY | PROVIDERS: PCP Internal Medicine; Visit Provider Social Worker Clinical | DX: F25.1 Schizoaffective disorder, depressive type (principal) | CPT/HCPCS: 90834 ==

== ENCOUNTER → 2021-01-26 08:30 | Outpatient (BNVA) | payer MEDICARE, MEDICAID, SELFPAY | PROVIDERS: PCP Internal Medicine; Visit Provider Social Worker Clinical | DX: F25.1 Schizoaffective disorder, depressive type (principal) | CPT/HCPCS: 90834 ==

== ENCOUNTER → 2021-01-28 07:30 | Outpatient (BNVA) | payer MEDICARE, MEDICAID, SELFPAY | PROVIDERS: PCP Internal Medicine; Visit Provider Nurse Practitioner Psychiatric/Mental Health | DX: F25.1 Schizoaffective disorder, depressive type (principal); F17.210 Nicotine dependence, cigarettes, uncomplicated | CPT/HCPCS: 99214 ==

== ENCOUNTER → 2021-02-12 12:35 | Outpatient (BNVA) | payer MEDICARE, MEDICAID, SELFPAY | PROVIDERS: PCP Internal Medicine; Visit Provider Social Worker Clinical | DX: F25.1 Schizoaffective disorder, depressive type (principal) | CPT/HCPCS: 90834 ==

== ENCOUNTER 2021-03-11 08:11 | Outpatient (CLI) | payer MEDICARE, MEDICAID, SELFPAY ==
--- NOTE | 2021-03-11 08:30 | CT_ITS ---
WS: [id number] CTA ABDOMINAL AORTA WITH RUNOFF TECHNIQUE: Contrast enhanced CTA of the abdominal aorta with bilateral lower extremity runoff. Multip lanar reformatted images were obtained. MIP reformats were also reviewed. CLINICAL INFORMATION: I73.9 - Peripheral vascular disease, unspecified COMPARISON: None. DLP: 1342.[address] scans at [facility] use at least one of these dose optimization techniques: automat ed exposure control; mA and/or kV adjustment per patient size (includes targeted exams where dose is matched to clinical indication); or iterative reconstruction. FINDINGS: Normal caliber abdominal aorta. Moderate aortic atheromatous disease. Celiac and SMA are pa tent. Proximal renal arteries are patent. TASIA is patent. No aneurysm. Lung bases are well aerated. Gallbladder is contracted. Normal GE junction. Adrenal glands are normal . Normal renal parenchymal enhancement. No hydronephrosis. Small splenule. Normal spleen. Prostate ca lcification. Urine distended bladder. RIGHT: Right common iliac artery is patent. Densely calcified right internal iliac artery. Densely ca lcified external iliac artery is patent. Right common femoral artery is patent. Superficial femoral a rtery is occluded at the origin. Deep femoral artery is patent. Intermittent flow in the superficial femoral artery with dense calcification. High-grade segmental narrowing. Occluded stent in the distal superficial femoral artery additional occluded stent in the popliteal artery. Popliteal artery is oc cluded. This remains occluded to the trifurcation. Very little flow in the calf arteries. Poor runoff distally with dominant anterior tibial runoff. LEFT: Left common iliac artery patent. Densely calcified internal iliac artery. External iliac artery is patent. Common femoral artery is patent. Popliteal bypass graft is patent. Severe stenosis at the distal bypass graft anastomosis in the distal popliteal artery. Short segment occlusion of the popli teal artery distal to the graft. Reconstitution of flow in the popliteal artery with severe stenosis at the trifurcation. Poor flow in the calf arteries. Single-vessel runoff peroneal artery. Prior occl uded abandoned femoropopliteal bypass graft. CT/CT angio abd aorta runof 43677 IMPRESSION: 1. RIGHT superficial femoral artery is occluded at the origin and with intermi ttent segmental flow in the SFA proximal thigh. Distal SFA stent and popliteal artery stent are occluded. Popliteal artery is occluded to the trifurcation. Ve ry poor runoff in the calf arteries. Dominant anterior tibial runoff. 2. LEFT Femoropopliteal bypass graft is patent.Severe stenosis at the distal a nastomosis popliteal artery. Popliteal artery reconstitutes just distal to the anastomosis with severe stenosis at the trifurcation. Poor runoff distally with single vessel dominant peroneal runoff. 3. Moderate abdominal aortic atheromatous disease. No aneurysm. 4. Celiac and SMA are patent. Proximal renal arteries are patent. 5. Other nonvascular findings described above.
[2021-03-11 08:41] LABS: Blood Urea Nitrogen 18 mg/dL (8-23); Glomerular Filtration Rate 84.4 mL/min (90-130)
[2021-03-11] MEDS: iohexol 350 mg/mL 100 mL Btl IV (08:55)
== END 2021-03-11 08:12 | disposition home or self-care (01) ==
PROVIDERS: PCP Internal Medicine; Visit Provider Internal Medicine
DX: I73.9 Peripheral vascular disease, unspecified (principal); I70.90 Unspecified atherosclerosis
CPT/HCPCS: 90834; 75635; 82565; 84520; Q9967

== ENCOUNTER → 2021-04-08 14:43 | Outpatient (BNVA) | payer MEDICARE, MEDICAID, SELFPAY | PROVIDERS: PCP Internal Medicine; Visit Provider Social Worker Clinical | DX: F25.1 Schizoaffective disorder, depressive type (principal) | CPT/HCPCS: 90834 ==

== ENCOUNTER 2021-04-10 13:10 | Outpatient (CLI) | payer MEDICARE, MEDICAID, SELFPAY ==
[2021-04-10 13:34] LABS: Basophils # 0.1 10^3/uL (0.0-0.1); Basophils % 0.8 %; Eosinophils # 0.4 10^3/uL (0.0-0.8); Eosinophils % 5.1 %; Hematocrit 34.7 % (42.0-52.0); Hemoglobin 11.1 g/dL (11.7-16.6); Lymphocytes # 1.2 10^3/uL (0.8-4.8); Lymphocytes % 14.7 %; Mean Corpuscular Hemoglobin 27.3 pg (28.0-34.0); Mean Corpuscular Volume 85.5 fL (80-94); Mean Platelet Volume 9.5 fL (7.4-10.4); Monocytes # 0.5 10^3/uL (0.2-0.9); Monocytes % 6.5 %; Neutrophils # 6.06 10^3/uL (1.8-7.7); Neutrophils % 72.4 %; Nucleated Red Blood Cells % 0 %; Platelet Count 308 10^3/cmm (130-400); Red Blood Count 4.06 10^6/uL (4.1-5.3); Red Cell Distribution Width 14.6 % (12.1-15.1); White Blood Count 8.4 10^3/uL (4.0-10.0)
[2021-04-10 13:44] LABS: INR 0.93 (0.8-1.2)
[2021-04-10 14:06] LABS: Anion Gap 12.8 (5-19); Blood Urea Nitrogen 16 mg/dL (8-23); Calcium 8.8 mg/dL (8.5-10.5); Carbon Dioxide 29 mmol/L (22-29); Chloride 96 mmol/L (98-107); Glomerular Filtration Rate 74.8 mL/min (90-130); Glucose 267 mg/dL (65-115); Osmolality Calculated 287 mOsm/kg (285-295); Potassium 4.8 mmol/L (3.5-5.1); Sodium 133 mmol/L (136-145)
== END 2021-04-10 13:11 | disposition home or self-care (01) ==
PROVIDERS: PCP Internal Medicine; Visit Provider Internal Medicine
DX: I73.9 Peripheral vascular disease, unspecified (principal)
CPT/HCPCS: 36415; 80048; 85025; 85610; 87635

== ENCOUNTER 2021-04-14 11:51 | Observation (INO) | payer MEDICARE, MEDICAID, SELFPAY ==
[2021-04-14] VITALS (28 sets, daily range): BP systolic 131–190; BP diastolic 64–101; PULSE 83–99; RESP 12–27; TEMP 36.6–36.7; O2SAT 90–98; BMI 19.5
--- NOTE | 2021-04-14 09:00 | XACV_ITS ---
Wt: 64 kg BSA: 1.77 m2 Any Known Allergies: No known allergies Gender: Male : 1955 Exam Type: Invasive Peripheral Vascular Procedure(s): Procedure Description: Peripheral vascular Intervention Procedure Description: Peripheral angiogram Exam Priority: Routine Abdominal Diagnostic Findings Distal abdominal aorta: No significant stenosis. Lower Extremity Diagnostic Findings Right Right common iliac artery: Patent Right external iliac artery: Patent Right internal iliac artery: Patent Right common femoral artery: Patent Right profunda femoral artery: Patent Right SFA: There is severe 90% stenosis of ostial SFA. There are several serial lesions from mid to distal SFA ranging from 70% to 90% stenosis. There is an old stent in the midsegment that has severe in-stent restenosis. Right popliteal artery: Patent Below the knee there is excellent collateral blood supply supplying to the foot. [place] arteries are occluded and fill by collaterals. Left right common iliac artery: Patent Left external iliac artery: Patent Left internal iliac artery: Patent Left common femoral artery: Patent Left profunda femoral artery: Patent Left SFA: Ostially occluded Left popliteal artery: Patent Femoral to popliteal bypass: Patent Below the knee there is excellent collateral blood supply supplying to the foot. TP segment is patent. Peroneal artery is seen. [place] arteries are occluded and fill by collaterals. . Lower Extremity Interventional Findings Indication: Severe lifestyle limiting claudication. Risks and benefits of the procedure have been discussed with the patient. FDA warning about signal of increased mortality with drug-coated balloon was discussed with the patient. Patient understands the risks and wanted to proceed with the procedure. Procedure detail: Very obtained access and left common femoral artery. After angiogram was performed, we used 0.035 Glidewire to cross the stenosis. This was followed by balloon angioplasty using 6.0 x 250 and 6.0 x 200 mm Laurel balloon. This was followed by balloon angioplasty of the right SFA with 6.0 x 200 mm Lutonix drug-coated balloon. Heparin was used for anticoagulation during the procedure. At this time final angiogram was performed and showed excellent flow in the SFA. Patient left the Tempering Oven Operator in a stable condition.. Conclusions Severe serial stenoses in the right SFA. Successful revascularization with balloon angioplasty and use of drug coated balloon. Patent fem-pop graft on the left lower extremity. null was treated with Balloon. null was treated with Balloon. null was treated with Balloon. Recommendations Transfer to CSU. Continue Eliquis 2.5mg bid. Continue cilostazol. Has patent fem-pop bypass graft on the left side. Medical management. Anticoagulation: Heparin Access Site Site: Left Femoral artery Sheath Size: 6 Fr Hemost... Method: Suture Hemost... Success: Successful Procedure Details Findings Procedure Consent Obtained. Admit Source: Out Patient. Pre-Procedure Time Out. Identified patient by full name and date of as verbalized by the patient/guarantor. Does the consent match the physician's order: Yes. Accurate & Complete Informed Consent: Yes. Inpatient/Outpatient History & Physical on Chart: Yes. If H&P is completed, is and addenduem needed: Yes; If yes, is the addendum complete: N/A. Visualize and Verify Site with Patient/Guarantor: N/A. Relevant Radiology Images available: N/A. Pre-op teaching completed and patient verbalized understanding. The risks, benefits, and alternatives of sedation and/or procedure were discussed by physician. The patient agrees to continue. Procedure started. Correct patient, site and procedure confirmed by cath team. PERRLA. Strong, equal hand flow floor attendant bilaterally. Lungs clear x 5 lobes. IV Site on Arrival: 20 gauge in the right forearm. Pre Procedural Pulses: bilateral dorsalis pedis was Doppled. Pre Procedural Pulses: bilateral posterior tibial was Doppled. Pre Procedural Pulses: bilateral radial was 3+. Oxygen started at 2liters/min via nasal canula. bilateral groins was prepped with chloroprep then draped in the usual sterile fashion. Physician notified. Baseline sample Acquired. HR: 89 BPM. Physician arrived. Physician scrubbed in. Immediate Pre-Procedure Time Out. Correct Patient: Yes; Correct Procedure: Yes; Correct Site: Yes; Correct Patient Position: Yes; Correct Supplies: Yes; Dried Flammable Prep: Yes; Blood Products Available: N/A;. Lidocaine 1% infiltrated to the left groin. Arterial access obtained with micropuncture set. A 5FrFr UF catheter in over wire. catheter seated in the distal aorta. wire out. runoff performed 10mL/sec for a total of 30mL. glidewire inserted. glidewire parked in popliteal on right side. Sheath upsized to a 6 Fr. right leg runoff performed. 10mL/sec for a total of 30mL. Trailblazer catheter inserted over the wire. trailblazer seated in the popliteal. hand injection performed. glidewire inserted. trailblazer out. Inflation number : 1 A AB Laurel 35 WAREHOUSE RECEIVING CLERK Catheter [id number] was prepped and advanced across the Right SFA , then inflated to 12 ABIGAIL for 1:42 seconds. Balloon out. Inflation number : 1 A AB Laurel 35 WAREHOUSE RECEIVING CLERK Catheter [id number] was prepped and advanced across the Right SFA , then inflated to 8 ABIGAIL for 2:02 seconds. Inflation number: 2 The AB Laurel 35 WAREHOUSE RECEIVING CLERK Catheter [id number] was reinflated across the Right SFA, to 8 ABIGAIL for 1:32 seconds. Balloon out. Side port of sheath attached to Normal Saline flush at KVO to maintain patency. runoff performed 10mL/sec for a total of 20mL. Inflation number : 1 A LUTONIX 035 6.0mm X 200mm was prepped and advanced across the Right SFA, then inflated to 6 ABIGAIL for 1:00 seconds. Inflation number: 2 The LUTONIX 035 6.0mm X 200mm was reinflated across the Right SFA, to 6 ABIGAIL for 1:04 seconds. Balloon out. Right leg runoff performed 10mL/sec for a total of 30mL. results checked. exchange long sheath back to short 6F sheath. Wire out. Left leg runoff performed 10mL/sec for a total of 30mL. Guide catheter out. Sheath(s) sutured into position with 2-0 silk and sterile 4x4's and Op-site applied over the site. No oozing or signs and symptoms of hematoma noted. Post Procedure: Pulses reassessed and unchanged. PERRLA. Strong, equal hand flow floor attendant bilaterally. No VTE prophylaxis required. Medication's Wasted: Nitro = 49.6 mg. Medication's Wasted: Lidocaine 1% = 10 mL. Medication's Wasted: Heparin = 3000 units. Total IV fluids: 85.4 mL. A Suture was successful obtaining hemostatsis at the Left Femoral artery insertion site. Contrast type used: Visipaque 320 mgI/mL, 500 mL bottle. Contrast Material : Visipaque 150 ml. Post-op diagnosis: severe right SFA stenosis. Complications: none. Estimated blood loss: 5mL-10mL. Procedure completed. Patient transferred by bed to 1st floor. Vital chart was stopped. Procedure Medications Start: 9:52 AM Stop: 9:52 AM Medication: Versed Amount: 1 mg Start: 9:52 AM Stop: 9:52 AM Medication: Versed Amount: 1 mg Route: I.V. Start: 9:52 AM Stop: 9:52 AM Medication: Fentanyl Amount: 50 mcg Route: I.V. Start: 9:52 AM Stop: 9:52 AM Medication: Benadryl Amount: 50 mg Route: I.V. Start: 9:56 AM Stop: 9:56 AM Medication: Versed Amount: 1 mg Route: I.V. Start: 9:56 AM Stop: 9:56 AM Medication: Fentanyl Amount: 50 mcg Route: I.V. Start: 10:28 AM Stop: 10:28 AM Medication: Heparin Amount: 6000 units Route: I.V. Start: 10:30 AM Stop: 10:30 AM Medication: Versed Amount: 1 mg Route: I.V. Start: 10:30 AM Stop: 10:30 AM Medication: Fentanyl Amount: 50 mcg Route: I.V. Start: 10:44 AM Stop: 10:44 AM Medication: Nitrogylcerin Amount: 400 mcg Route: I.A. I, the attending physician, have reviewed and verified all procedure medications. Yes, all medications given per verbal order History/Risk Factors Hypertension: Yes Dyslipidemia: Yes Tobacco Use: Current/Recent(w/in 1 year) Report Signatures Finalized by Kashif Mejias MD on 04/29/2021 12:37 PM
--- NOTE | 2021-04-14 09:42 | P.HP_ITS ---
Same Day Surgery H&P Indication for Procedure/HPI DATE OF PROCEDURE: April 14, 2021 CHIEF COMPLAINT/INDICATIONFOR SURGICAL PROCEDURE: Severe life style limiting claudication (Hendricks class 3) PREOP DIAGNOSIS: Severe life style limiting claudication PLANNED PROCEDRUE: Operation Date: 04/14/21 10:00 Proposed Procedures p Peripheral Diagnostic 20427 I73.9(Not Applicable) - Kasihf Mejias M.D Possible percutaneous coronary intervention 65-year-old man with past medical history of smoking for 50 years, hypertension, severe lower extremity peripheral artery disease, status post femoropopliteal bypasses, hypertension, dyslipidemia, diabetes, continued smoking, COPD and anemia who is having lifestyle limiting claudication and has failed medical therapy. He is on cilostazol. He continues to smoke. Plan is for peripheral angiogram with possible intervention. ROS CONSTITUTIONAL: No fever chills weight loss or gain or night sweats. [] HEENT: Normocephalic, atraumatic.[] RESPIRATORY: No cough, sputum, hemoptysis or wheezing.[] CARDIOVASCULAR: No shortness of breath, chest pain, PND, orthopnea, lower extremity edema, presyncope or syncope. [] GI: no nausea vomiting diarrhea. [] HEEL COVER SOFTENER: No numbness, tingling, weakness or loss of function in any part of the body. [] MUSCULOSKELETAL: Has severe right-sided exertional leg pain. Medications/Allergies* Home Medications Medication Instructions Recorded Confirmed Type ascorbic acid (vitamin C) 500 mg 500 mg PO DAILY cap 12/11/19 04/14/21 History capsule cilostazol 100 mg tablet 100 mg PO BID 12/11/19 04/14/21 History ferrous sulfate 325 mg (65 mg 325 mg PO BID 12/11/19 04/14/21 History iron) tablet finasteride 5 mg tablet 5 mg PO DAILY tab 12/11/19 04/14/21 History gabapentin 300 mg capsule 300 mg PO TID 12/11/19 04/14/21 History lisinopril 10 mg tablet 10 mg PO DAILY tab 12/11/19 04/14/21 History metformin 850 mg tablet 850 mg PO TID 12/11/19 04/14/21 History omeprazole magnesium 10 mg oral 20 mg PO BID 12/11/19 04/14/21 History suspension,delayed release pravastatin 80 mg tablet 80 mg PO DAILY tab 12/11/19 04/14/21 History tamsulosin 0.4 mg capsule 0.4 mg PO DAILY cap 12/11/19 04/14/21 History metoprolol tartrate 25 mg tablet 25 mg PO DAILY tab 10/21/20 04/14/21 History Allergies/Adverse Reactions Allergy/AdvReac Type Severity Reaction Status Date / Time No Known Allergies Allergy Verified 12/09/20 12:18 Pertinent History/Comorbid Conditions* Medical History (Updated 03/06/21 @ 22:44 by Kashif Mejias M.D) BPH with obstruction/lower urinary tract symptoms COPD (chronic obstructive pulmonary disease) Diabetes Dyslipidemia Essential hypertension 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 Lower urinary tract symptoms (LUTS) Nicotine dependence, cigarettes, uncomplicated Polyuria Schizoaffective disorder, depressive type Surgical History (Updated 07/18/20 @ 18:40 by Alvaro Rubin MD) H/O colonoscopy yrs ago H/O esophagogastroduodenoscopy H/O foot surgery S/P angioplasty Status post femoral-popliteal bypass surgery Family History (Updated 07/16/20 @ 15:00 by Marti Brooks LPN) Diabetes Family/Other Cancer Family/Other Hypertension Family/Other Stroke Family/Other Denies family history of Anesthesia complication Bleeding disorder Social History Smoking and tobacco status: current every day smoker Alcohol intake: never Household members: other Details: room mate Marital status: Current occupational status: disabled History of recent travel: No Current gender identity: Male Pertinent Exam Findings alert, oriented x 3, clear to auscultation bilaterally and regular rate & rhythm Conscious Sedation Assessment PATIENT ASSESSED PRIOR TO SEDATION, WITH NO CHANGE NOTED: Yes AIRWAY EVAL/ANESTHESIA PLAN: ASA III, Monitored Anesthesia, Local Anesthesia, Risks, benefits & alternatives of sedation and/or procedure discussed and Patient agrees to continue as planned Recommendations Surgery/Procedure today (Peripheral angiogram with possible intervention) Coding Level of Care Code Acute Artificial Leather Calender Operator for Becca Oliver
--- NOTE | 2021-04-14 11:30 | PC.NURSE ---
Received report from SHELDON Miller. Patient came to floor via bed. No hematoma present upon arrival. Patient VS Q15M. Patient oriented to room, educated on activity restriction and oriented to call mayorga.
[2021-04-14] MEDS: fentaNYL 50 mcg/mL INJ 2mL 25 MCG IVP (12:07)
--- NOTE | 2021-04-14 13:00 | PC.NURSE ---
Notified doctor about patients hypertension of 160-170's systolic, received orders to resume home dose of lisinpril and give NOW.
[2021-04-14] MEDS: lisinopril 10 mg Tablet PO (13:17)
[2021-04-14] MEDS: acetaminophen 325 mg Tablet 650 MG PO (13:17)
[2021-04-14] MEDS: sodium chloride 0.9% 1,000 ML 100 ML IV (13:24)
[2021-04-14 14:13] LABS: Partial Thromboplastin Time 35.6 SECONDS (23.9-36.7)
[2021-04-14 16:15] LABS: Glucose Point of Care 165 mg/dL (70-110)
[2021-04-14] MEDS: fentaNYL 50 mcg/mL INJ 2mL IVP (16:33)
[2021-04-14] MEDS: cilostazol 100 mg Tablet PO (18:03)
[2021-04-14] MEDS: BuSPIRONE 10 mg Tablet 30 MG PO (18:03)
[2021-04-14] MEDS: pneumococcal (23 valent) SDV 0.5 mL IM (20:11)
[2021-04-14] MEDS: mirtazapine 15 mg Tablet PO (20:12)
--- NOTE | 2021-04-14 20:18 | PC.NURSE ---
ORDER FROM DR HERNANDEZ TO STOP NS FLUIDS NOW.
--- NOTE | 2021-04-14 20:20 | PC.NURSE ---
ORDERD BY DR. HUYNH TO NOT GIVE 2100 ELIQUIS.
[2021-04-15] VITALS (8 sets, daily range): BP systolic 154–189; BP diastolic 77–101; PULSE 94–140; RESP 15–17; TEMP 36.6–36.8; O2SAT 93–96
[2021-04-15 03:39] LABS: Basophils # 0.1 10^3/uL (0.0-0.1); Basophils % 0.5 %; Eosinophils # 0.8 10^3/uL (0.0-0.8); Hematocrit 30.3 % (42.0-52.0); Hemoglobin 9.6 g/dL (11.7-16.6); Lymphocytes # 1.3 10^3/uL (0.8-4.8); Lymphocytes % 12.8 %; Mean Corpuscular HGB Conc 31.7 g/dL (30.0-36.0); Mean Corpuscular Hemoglobin 27.1 pg (28.0-34.0); Mean Corpuscular Volume 85.6 fL (80-94); Mean Platelet Volume 9.1 fL (7.4-10.4); Monocytes # 0.8 10^3/uL (0.2-0.9); Neutrophils # 7.03 10^3/uL (1.8-7.7); Neutrophils % 70.2 %; Nucleated Red Blood Cells % 0 %; Platelet Count 288 10^3/cmm (130-400); Red Blood Count 3.54 10^6/uL (4.1-5.3); Red Cell Distribution Width 14.6 % (12.1-15.1)
[2021-04-15 04:07] LABS: Anion Gap 14.7 (5-19); Blood Urea Nitrogen 12 mg/dL (8-23); Calcium 8.8 mg/dL (8.5-10.5); Carbon Dioxide 26 mmol/L (22-29); Chloride 98 mmol/L (98-107); Glomerular Filtration Rate 134.8 mL/min (90-130); Glucose 119 mg/dL (65-115); Osmolality Calculated 279 mOsm/kg (285-295); Potassium 4.7 mmol/L (3.5-5.1); Sodium 134 mmol/L (136-145)
--- NOTE | 2021-04-15 04:53 | PC.NURSE ---
Patient ambulated with nurse several times throughout night starting at 2240. Patient c/o right thigh pain only when ambulating. Assessment to right thigh and left groin WNL. VSS.
[2021-04-15] MEDS: ARIPiprazole 10 mg Tablet 15 MG PO (05:15)
[2021-04-15] MEDS: buPROPion XL (24 HR) 300 mg Tablet PO (05:16)
--- NOTE | 2021-04-15 05:34 | PC.NURSE ---
Dr. Marinelli notified of heart rate earlier in shift being 80s to 90s and now is 120s ST. Also notified of blood pressure of 175/91. Ordered to give 0900 Metoprolol and Lisinopril now. Left groin site WNL.
[2021-04-15] MEDS: lisinopril 10 mg Tablet PO (05:52)
[2021-04-15] MEDS: metoprolol tartrate 25 mg Tablet PO (05:52)
--- NOTE | 2021-04-15 06:26 | PC.NURSE ---
Dr. Marinelli notified of blood pressure of 189/100 and heart rate in 140s ST. Patient is asymptomatic and has no signs of bleeding. Ordered to give 5 mg IV Metoprolol now. And to give another 5 mg if not improved in 10 minutes after giving.
[2021-04-15] MEDS: metoprolol tartrate 1 mg/1 mL SDV 5 mL 5 MG IV ×2 (06:31→07:04)
--- NOTE | 2021-04-15 07:18 | PM.SDS ---
Short Stay Summary Providers Date of Admit/Discharge: 04/15/21 Attending Provider: Kashif Mejias M.D Primary Care Provider: Marti Pittman DO Chief Complaint: peripheral HPI History of Present Illness 66-year-old man with past medical history of smoking for 50 years, hypertension, severe lower extremity peripheral artery disease, status post femoropopliteal bypasses, hypertension, dyslipidemia, diabetes, continued smoking, COPD and anemia who is having lifestyle limiting claudication and has failed medical therapy. He is on cilostazol. He continues to smoke. Plan is for peripheral angiogram with possible intervention. I had a discussion with patient regarding possible use of peripheral drug-coated balloon. He was given the data regarding signal of increased mortality with it however patient understands the risks and benefits and wanted to proceed with the procedure. Review of Systems Narrative: CONSTITUTIONAL: No fever chills weight loss or gain or night sweats. [] HEENT: Normocephalic, atraumatic.[] RESPIRATORY: No cough, sputum, hemoptysis or wheezing.[] CARDIOVASCULAR: No shortness of breath, chest pain, PND, orthopnea, lower extremity edema, presyncope or syncope. [] GI: no nausea vomiting diarrhea. [] MANAGER INTENSIVE CARE: No numbness, tingling, weakness or loss of function in any part of the body. [] MUSCULOSKELETAL: No knee or joint pain or rashes. [] Home Meds/Allergies Home Medications and Allergies Home Medications Medication Instructions Recorded Confirmed Type ascorbic acid (vitamin C) 500 mg 500 mg PO DAILY cap 12/11/19 04/14/21 History capsule cilostazol 100 mg tablet 100 mg PO BID 12/11/19 04/14/21 History ferrous sulfate 325 mg (65 mg 325 mg PO BID 12/11/19 04/14/21 History iron) tablet finasteride 5 mg tablet 5 mg PO DAILY tab 12/11/19 04/14/21 History gabapentin 300 mg capsule 300 mg PO TID 12/11/19 04/14/21 History metformin 850 mg tablet 850 mg PO TID 12/11/19 04/14/21 History omeprazole magnesium 10 mg oral 20 mg PO BID 12/11/19 04/14/21 History suspension,delayed release pravastatin 80 mg tablet 80 mg PO DAILY tab 12/11/19 04/14/21 History tamsulosin 0.4 mg capsule 0.4 mg PO DAILY cap 12/11/19 04/14/21 History Allergies Allergy/AdvReac Type Severity Reaction Status Date / Time No Known Allergies Allergy Verified 12/09/20 12:18 PFSH Acute PFSH: Medical History BPH with obstruction/lower urinary tract symptoms COPD (chronic obstructive pulmonary disease) Diabetes Dyslipidemia Essential hypertension 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 Lower urinary tract symptoms (LUTS) Nicotine dependence, cigarettes, uncomplicated Polyuria Schizoaffective disorder, depressive type Surgical History H/O colonoscopy yrs ago H/O esophagogastroduodenoscopy H/O foot surgery S/P angioplasty Status post femoral-popliteal bypass surgery Family History Family/Other Stroke Cancer Diabetes Hypertension Denies family history of Anesthesia complication Bleeding disorder Social History Smoking and tobacco status: current every day smoker Alcohol intake: never Household members: other Details: room mate Marital status: Current occupational status: disabled History of recent travel: No Current gender identity: Male Vitals/I&O/Wt Last Vital Signs Temp 98 F 04/15/21 04:05 Pulse 98 04/15/21 07:15 Resp 15 04/15/21 04:05 BP 168/96 04/15/21 07:15 Pulse Ox 96 04/15/21 04:05 04/14/21 04/15/21 04/15/21 22:59 06:59 14:59 Intake Total 690 / 690 300 / 990 Output Total 1925 / 1925 Balance -1235 / -1235 300 / -935 Weight last 48 hrs Weight 140 lb Physical Exam Narrative: EXAM NARRATIVE: GENERAL: Patient is alert, awake and oriented x3. [] NECK: No jugular vein distension. [] HEENT: No cyanosis. No icterus. No pallor. [] HEART: Regular S1 and S2. No murmur, rub or gallop. [] LUNGS: Clear to auscultate bilaterally. [] ABDOMEN: Soft, nontender and nondistended. Positive bowel sounds. No guarding, rebound or tenderness. [] CENTRAL NERVOUS SYSTEM: Grossly nonfocal. [] EXTREMITIES: Lower extremities with 1+ edema bilaterally. Pulses palpable in the lower extremities, both dorsalis pedis and posterior tibial. [] Hospital Course Hospital Course 66-year-old man with past medical history of smoking for 50 years, hypertension, severe lower extremity peripheral artery disease, status post femoropopliteal bypasses, hypertension, dyslipidemia, diabetes, continued smoking, COPD and anemia who is having lifestyle limiting claudication and has failed medical therapy. He is on cilostazol. He continues to smoke. Patient underwent peripheral angiogram yesterday that showed severe, heavily calcified right SFA stenosis. He underwent successful revascularization with balloon angioplasty and drug-coated balloon. Excellent flow was reestablished. Below the knee on the right side, he has collateral blood flow. We were able to have excellent dopplerable pulses below the knee both in his pedis and posterior tibial artery territory. Patient was started on Eliquis 2.5 mg twice daily. He is metoprolol was uptitrated to twice daily and lisinopril was increased to 20 mg daily as his blood pressure was high in the hospital. SSS Data Data Completed and Pending: Pending at discharge Category Date Time Status PROCESSING SPECIALIST request for service Routin e Exams 04/14/21 09:00 Taken Discharge Plan Discharge Patient Disposition: Home Condition: Stable Prescriptions: New Eliquis 5 mg Tablet 2.5 mg PO BID@0900,2100 Qty: 60 RF: 0 Continued gabapentin 300 mg capsule 300 mg PO TID RF: 0 tamsulosin 0.4 mg capsule 0.4 mg PO DAILY RF: 0 ascorbic acid (vitamin C) 500 mg capsule 500 mg PO DAILY RF: 0 ferrous sulfate 325 mg (65 mg iron) tablet 325 mg PO BID RF: 0 cilostazol 100 mg tablet 100 mg PO BID RF: 0 pravastatin 80 mg tablet 80 mg PO DAILY RF: 0 finasteride 5 mg tablet 5 mg PO DAILY RF: 0 Prilosec 10 mg susp,delayed release for recon 20 mg PO BID RF: 0 aripiprazole 15 mg tablet 15 mg PO .morning Qty: 90 RF: 2 bupropion HCl 300 mg tablet extended release 24 hr 300 mg PO QAM Qty: 90 RF: 2 mirtazapine [Remeron] 15 mg tablet 15 mg PO .QHS Qty: 90 RF: 2 buspirone 15 mg tablet 30 mg PO BID Qty: 120 RF: 4 hydrocodone-acetaminophen 5-325 mg tablet 1 tab PO Q8H PRN (Reason: pain) Qty: 10 RF: 0 Changed lisinopril 10 mg tablet 20 mg PO DAILY Qty: 90 RF: 1 metoprolol tartrate 25 mg tablet 25 mg PO BID Qty: 0 RF: 0 Held metformin 850 mg tablet 850 mg PO TID RF: 0 Hold Instructions: Resume on 04/17/21. Discharge Orders: Discharge Order (Routine); Ordered 04/15/21 Ordered By: Kashif Mejias Referrals: Kashif Mejias M.D [Physician] - 1 month (Please follow-up with Dr. Mejias on April 3:00P.M. If you have any questions or need to reschedule. Please call ) Leonor Brito FNP [Nurse Practitioner] - 7-10 days (Please follow-up with Leonor Brito on April 22 at 10:45A.M. If have any questions or need to reschedule. Please call ) Discharge Diet: Cardiac Discharge Activity: Increase activity as tolerated Patient Instructions: Apixaban (By mouth), Peripheral Vascular Angioplasty (DC), Post Angiogram Home Care Instructions Activity Restrictions/Additional Instructions: Please do not lift more than 5 pounds of weight over the next 5 days Attestations Medical Necessity Statement*: Care not expected to cross 2 midnights. Patient had an outpatient Peripheral intervention yesterday and is ready to be discharged today Time Spent in Patient Care*: greater than 30 min Quality Metrics Clinical Quality Measures: During this hospital stay, did patient experience: None Coding Level of Care Code Acute Youth Manager for Becca Oliver
[2021-04-15] MEDS: BuSPIRONE 10 mg Tablet 30 MG PO (09:46)
[2021-04-15] MEDS: apixaban 5 mg Tablet 2.5 MG PO (09:46)
[2021-04-15] MEDS: atorvastatin 40 mg Tablet 20 MG PO (09:46)
[2021-04-15] MEDS: tamsulosin 0.4 mg Capsule PO (09:46)
[2021-04-15] MEDS: cilostazol 100 mg Tablet PO (09:46)
[2021-04-15] MEDS: pantoprazole DR 40 mg Tablet PO (09:46)
--- NOTE | 2021-04-15 10:25 | PC.CHAP ---
Pastoral Care Encounter/Spiritual Assessment Type of Contact [] Declined sap bw bi developer visit [] Patient/Family/Request visit [] Outpatient visit [] Follow-up visit [] Physician referral [] Code/Alert [x] Routine visit [] Staff referral [] Actively dying [] Patient sleeping [] Family support [] [] Out of room [] Palliative care [] [] Receiving care in room [] Pre-surgical visit [] Trauma [] Long length of stay [] ICU visit [] Other: Relational/Emotional Strength [] Patient feels connected with others/family/visitors/staff [] Distress [] Loneliness/isolation [] Abandonment Spirituality of Patient [] Person of Soni [] Attends Bahai of their Soni [] Believes in Prayer [] Reads Bible or Moravian materials [] There are Spiritual issues to be addressed Interactive Project Manager Interventions [x] Prayer [x] Active listening [x] Non-anxious presence [x] Spiritual/emotional support [] Crisis/trauma care [] Spiritual counseling [] Bereavement support [] Provided bereavement packet [] Provided Bible/devotional materials [] Provided toy/stuffed animal, coloring book to patient or family member [] Provided Communion [] Anointing/[place] [] Salvation [x] Completed spiritual assessment [] Other: Impact on Illness or Injury [] Angry [] Fearful [] Anxious [] Often cries [] Exhaustion [] Unable to work [] Unable to attend islam [] Unable to walk/stand [] Unable to read [] Unable to drive [] Unable to eat/drink [] Unable to sleep [] Unable to be with family [] Patient intubated [] Other: Summary wondering about going home! Time spent with patient 5 min
--- NOTE | 2021-04-16 16:44 | PC.RESP ---
SMOKING CESSATION AND PULMONARY REHAB INFORMATION SENT TO PATIENT.
== END 2021-04-15 10:30 | disposition home or self-care (01) ==
LOC: CCL 11:52 → CSU 11:52
PROVIDERS: Admitting Provider Internal Medicine; PCP Internal Medicine; Visit Provider Internal Medicine
DX: I70.201 Unspecified atherosclerosis of native arteries of extremities, right leg (principal); I10 Essential (primary) hypertension; E78.5 Hyperlipidemia, unspecified; F17.210 Nicotine dependence, cigarettes, uncomplicated; J44.9 Chronic obstructive pulmonary disease, unspecified; N40.1 Benign prostatic hyperplasia with lower urinary tract symptoms; N13.8 Other obstructive and reflux uropathy; Z23 Encounter for immunization; E11.9 Type 2 diabetes mellitus without complications; Z82.49 Family history of ischemic heart disease and other diseases of the circulatory system; Z82.3 Family history of stroke; Z83.3 Family history of diabetes mellitus
CPT/HCPCS: 36415; 36416; 37224; 75625; 75716; 80048; 82962; 85025; 85730; 90471; 90732; C1725; C1769; C1887; C1894; C2623; G0378; J1200; J1644; J2250; J3010; J3490; J7030; Q9967

== ENCOUNTER → 2021-04-22 08:02 | Outpatient (BNVA) | payer MEDICARE, MEDICAID, SELFPAY | PROVIDERS: PCP Internal Medicine; Visit Provider Nurse Practitioner Psychiatric/Mental Health | DX: F25.1 Schizoaffective disorder, depressive type (principal); Z79.899 Other long term (current) drug therapy; F17.210 Nicotine dependence, cigarettes, uncomplicated | CPT/HCPCS: 80048; 99214 ==

== ENCOUNTER → 2021-05-05 14:46 | Outpatient (BNVA) | payer MEDICARE, MEDICAID, SELFPAY | PROVIDERS: PCP Internal Medicine; Visit Provider Social Worker Clinical | DX: F25.1 Schizoaffective disorder, depressive type (principal) | CPT/HCPCS: 90834 ==

== ENCOUNTER → 2021-06-04 12:44 | Outpatient (BNVA) | payer MEDICARE, MEDICAID, SELFPAY | PROVIDERS: PCP Internal Medicine; Visit Provider Social Worker Clinical | DX: F25.1 Schizoaffective disorder, depressive type (principal) | CPT/HCPCS: 90834 ==

== ENCOUNTER → 2021-06-25 12:45 | Outpatient (BNVA) | payer MEDICARE, MEDICAID, SELFPAY | PROVIDERS: PCP Internal Medicine; Visit Provider Social Worker Clinical | DX: F25.1 Schizoaffective disorder, depressive type (principal) | CPT/HCPCS: 90834 ==

== ENCOUNTER 2021-06-29 12:50 | Emergency (ER) | payer MEDICARE, MEDICAID, SELFPAY ==
[2021-06-29 13:44] VITALS: BP 129/65; PULSE 84; RESP 17; TEMP 36.8; O2SAT 97; BMI 18.1
--- NOTE | 2021-06-29 14:10 | XRR_ITS ---
PROCEDURE INFORMATION: Exam: XR Chest Exam date and time: 06/29/2021 2:10 PM Age: 66 years old Clinical indication: Other: Weakness TECHNIQUE: Imaging protocol: XR of the chest. Views: 1 view. COMPARISON: CR XR chest 1V portable [id number] 12/25/2019 9:52 PM FINDINGS: Lungs: Unremarkable. No consolidation. Pleural spaces: Unremarkable. No pleural effusion. No pneumothorax. Heart/Mediastinum: Unremarkable. No cardiomegaly. Bones/joints: Unremarkable. XR/XR chest 1V portable [id number] IMPRESSION: No acute findings.
[2021-06-29 17:06] LABS: Basophils # 0.1 10^3/uL (0.0-0.1); Basophils % 0.5 %; Eosinophils # 0.4 10^3/uL (0.0-0.8); Eosinophils % 4.7 %; Hematocrit 25.6 % (42.0-52.0); Lymphocytes # 1.9 10^3/uL (0.8-4.8); Mean Corpuscular HGB Conc 31.3 g/dL (30.0-36.0); Mean Corpuscular Hemoglobin 27.9 pg (28.0-34.0); Mean Corpuscular Volume 89.2 fL (80-94); Mean Platelet Volume 8.9 fL (7.4-10.4); Monocytes # 0.6 10^3/uL (0.2-0.9); Monocytes % 6.5 %; Neutrophils # 6.18 10^3/uL (1.8-7.7); Neutrophils % 66.9 %; Nucleated Red Blood Cells % 0 %; Platelet Count 351 10^3/cmm (130-400); Red Blood Count 2.87 10^6/uL (4.1-5.3); Red Cell Distribution Width 14.7 % (12.1-15.1); White Blood Count 9.2 10^3/uL (4.0-10.0)
[2021-06-29 17:30] LABS: Alanine Aminotransferase 13 U/L (0-41); Albumin Level 3.7 g/dL (3.5-5.2); Alkaline Phosphatase 80 IU/L (40-130); Anion Gap 18.2 (5-19); Aspartate Amino Transferase 13 U/L (0-40); Blood Urea Nitrogen 27 mg/dL (8-23); Calcium 8.9 mg/dL (8.5-10.5); Carbon Dioxide 21 mmol/L (22-29); Chloride 98 mmol/L (98-107); Globulin 3.1 g/dL (1.3-4.6); Glomerular Filtration Rate 46.8 mL/min (90-130); Glucose 122 mg/dL (65-115); Osmolality Calculated 280 mOsm/kg (285-295); Potassium 5.2 mmol/L (3.5-5.1); Sodium 132 mmol/L (136-145); Total Bilirubin 0.2 mg/dL (0.15-1.2); Total Protein 6.8 g/dL (6.6-8.7)
--- NOTE | 2021-06-29 20:16 | W.ED.GENADLT ---
HPI - General Adult General: Chief complaint: General Medical Stated complaint: Low BP, weak, Time Seen by Provider: 06/29/21 20:11 History of Present Illness: HPI narrative: This patient is a 66-year-old male who presents to the emergency department describes orthostasis. Reviewed patient medication list that is found the patient takes metoprolol 25 mg twice daily by one doctor and 25 mg twice daily by another doctor. Home health a need has been given the patient both bottles of metoprolol instead of just understanding the metoprolol should be given just twice daily at 25 mg. Family member describing orthostasis just an hour after each medication taking. Will do medical evaluation treat as needed. Otherwise patient has no other complaints Associated symptoms: Deny chest pain, dyspnea, headache(s), nausea, rash, palpitations or vomiting Review of Systems General: Reports: 10 or more systems reviewed and unremarkable except in HPI and below Const: Denies: fever(s), chills, body aches or fatigue Eyes: Denies: change in vision or blurry vision ENMT: Denies: throat pain, hoarseness or mouth pain Card: Denies: chest pain, palpitations, irregular heart rhythm, edema, swelling of feet/ankles or lightheadedness Resp: Denies: dyspnea, productive cough, non-productive cough, wheezing or pain on inspiration GI: Denies: abdominal pain, nausea or vomiting : Denies: flank pain, dysuria, urinary frequency, urinary urgency or urinary hesitancy Musc: Denies: neck pain, back pain, extremity pain, extremity swelling, joint pain, joint swelling, joint redness, joint warmth or limited range of motion Skin/Breast: Denies: rash, pruritus, erythema or skin tenderness Neuro: Denies: headache(s), numbness in extremities or weakness in extremities Psych: Denies: anxiety or depression PFSH ED PFSH: Medical History BPH with obstruction/lower urinary tract symptoms COPD (chronic obstructive pulmonary disease) Diabetes Dyslipidemia Essential hypertension 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 Lower urinary tract symptoms (LUTS) Nicotine dependence, cigarettes, uncomplicated Peripheral arterial disease Polyuria Schizoaffective disorder, depressive type Surgical History H/O colonoscopy yrs ago H/O esophagogastroduodenoscopy H/O foot surgery S/P angioplasty Status post femoral-popliteal bypass surgery Family History Family/Other Stroke Cancer Diabetes Hypertension Denies family history of Anesthesia complication Bleeding disorder Social History Alcohol intake: never Household members: other Details: room mate Marital status: Current occupational status: disabled History of recent travel: No Current gender identity: Male Physical Exam Const: COMMON NORMALS: no acute distress, average body habitus, patient oriented x3, no limitations, healthy appearing, alert and well nourished HENMT: COMMON NORMALS: normocephalic, atraumatic, hearing grossly normal bilaterally, external ears normal, EAC's normal, TM's normal bilaterally, Normal external nose present, Normal nasal mucous membranes and turbinates present, moist oral mucous membranes, oropharynx normal, dentition normal and gingiva normal HEAD & SCALP: normocephalic and atraumatic NOSE: Normal external nose present and Normal nasal mucous membranes and turbinates present EXTERNAL EAR: Yes external ears normal EXTERNAL AUDITORY CANAL: EAC's normal TYMPANIC MEMBRANE: TM's normal bilaterally Neck/C-Spine: COMMON NORMALS: full ROM, no lymphadenopathy, supple, no meningeal signs, no JVD, Thyroid normal and No carotid bruits THYROID: Thyroid normal Chest: COMMONS NORMALS: normal inspection of the chest, normal palpation of entire chest wall, normal inspection of the breasts and normal palpation of the breasts Breast/axilla inspection: Yes normal inspection of the breasts BREAST/AXILLA PALPATION: Yes normal palpation of the breasts Resp: COMMON NORMALS: normal respiratory effort, No retractions, No use of accessory muscles, clear to auscultation bilaterally and percussion normal AUSCULTATION: clear to auscultation bilaterally PERCUSSION: percussion normal Cardio: COMMON NORMALS: no JVD, regular rate, regular rhythm, S1 normal heart sound present, S2 normal heart sound present, No gallops present (Cardio), No clicks present (Cardio), No murmurs present (Cardio), No rub (Cardio) and Peripheral pulses 2+ throughout RATE: regular rate RHYTHM: regular rhythm HEART SOUNDS: S1 normal heart sound present and S2 normal heart sound present PERIPHERAL PULSES: Peripheral pulses 2+ throughout GI: COMMON NORMALS: Normal to inspection, nondistended, normoactive bowel sounds present, Soft to palpation, non-tender, No hepatosplenomegaly present, no masses and no bruits PALPATION: Yes Soft to palpation and Yes No hepatosplenomegaly present : COMMON NORMALS: Yes no CVA tenderness BLADDER/KIDNEY EXAM: Yes no CVA tenderness Back/Pelvis: COMMON NORMALS: no CVA tenderness, thoracic and lumbar spine normal to inspection, no thoracic nor lumbar tenderness, thoraco-lumbar ROM normal and straight leg raise negative bilaterally Extremity: COMMON NORMALS: normal to inspection, full ROM, capillary refill normal, no joint enlargement, no clubbing, cyanosis or edema, no calf tenderness and no pedal edema Neuro: COMMON NORMALS: patient oriented x3 SENSORIUM/ORIENTATION: Yes alert MENINGEAL SIGNS: Yes no meningeal signs Course Reevaluation(s): Reevaluation #1: Negative evaluation in the emergency department for any acute findings. We did discuss at length and reviewed all medications. Patient given the following instructions. Encourage p.o. fluids. Take your blood pressure twice daily and maintain a blood pressure log as instructed. Follow-up with primary care physician in about 7 days to discuss any changes that may need to take place and review of the blood pressure log. Patient should transition from lying to sitting to standing slowly. Return to the emergency department symptoms fail to improve or worsen. Time: 22:14 Vital Signs: Vital signs: Vital Signs Temperature 98.2 F 06/29/21 13:44 Pulse Rate 84 06/29/21 13:44 Respiratory Rate 17 06/29/21 13:44 Blood Pressure 143/76 06/29/21 21:22 Pulse Oximetry 97 06/29/21 13:44 MDM - General Adult MDM Narrative: Medical decision making narrative: This patient is a 66-year-old male who presents to the emergency department describes orthostasis. Reviewed patient medication list that is found the patient takes metoprolol 25 mg twice daily by one doctor and 25 mg twice daily by another doctor. Home health a need has been given the patient both bottles of metoprolol instead of just understanding the metoprolol should be given just twice daily at 25 mg. Family member describing orthostasis just an hour after each medication taking. Will do medical evaluation treat as needed. Otherwise patient has no other complaints Encourage p.o. fluids. Take your blood pressure twice daily and maintain a blood pressure log as instructed. Follow-up with primary care physician in about 7 days to discuss any changes that may need to take place and review of the blood pressure log. Patient should transition from lying to sitting to standing slowly. Return to the emergency department symptoms fail to improve or worsen. Follow-up with Dr. Rogers as instructed. For chronic anemia. Follow-up with Dr. Benedict GI may need outpatient colonoscopy. Lab Data: Labs: Lab Results 06/29/21 06/29/21 Range/Units 16:33 16:33 WBC 9.2 (4.0-10.0) 10^3/ uL RBC 2.87 L (4.1-5.3) 10^6/u L Hgb 8.0 L (11.7-16.6) g/dL Hct 25.6 L (42.0-52.0) % MCV 89.2 (80-94) fL MCH 27.9 L (28.0-34.0) pg MCHC 31.3 (30.0-36.0) g/dL RDW 14.7 (12.1-15.1) % Plt Count 351 (130-400) 10^3/c mm MPV 8.9 (7.4-10.4) fL Neut % (Auto) 66.9 % Lymph % (Auto) 21.0 % [place] % (Auto) 6.5 % Eos % (Auto) 4.7 % Baso % (Auto) 0.5 % Neut # (Auto) 6.18 (1.8-7.7) 10^3/u L Lymph # (Auto) 1.9 (0.8-4.8) 10^3/u L [place] # (Auto) 0.6 (0.2-0.9) 10^3/u L Eos # (Auto) 0.4 (0.0-0.8) 10^3/u L Baso # (Auto) 0.1 (0.0-0.1) 10^3/u L Nucleated RBC % (a uto) 0 % Nucleated RBCs # 0.0 /100WBC Sodium 132 L (136-145) mmol/L Potassium 5.2 H (3.5-5.1) mmol/L Chloride 98 (98-107) mmol/L Carbon Dioxide 21 L (22-29) mmol/L Anion Gap 18.2 (5-19) BUN 27 H (8-23) mg/dL Creatinine 1.5 H (0.7-1.2) mg/dL GFR Calculation 46.8 L (90-130) mL/min Glucose 122 H (65-115) mg/dL Calculated Osmolal ity 280 L (285-295) mOsm/k g Calcium 8.9 (8.5-10.5) mg/dL Total Bilirubin 0.2 (0.15-1.2) mg/dL AST 13 (0-40) U/L ALT 13 (0-41) U/L Alkaline Phosphata se 80 (40-130) IU/L Total Protein 6.8 (6.6-8.7) g/dL Albumin 3.7 (3.5-5.2) g/dL Globulin 3.1 (1.3-4.6) g/dL Discharge Plan Discharge Patient Disposition: Home Clinical Impression: Orthostasis, Peripheral vascular disease, Medication side effect, Chronic anemia Condition: Stable Prescriptions: No Action gabapentin 300 mg capsule 300 mg PO TID RF: 0 tamsulosin 0.4 mg capsule 0.8 mg PO BEDTIME RF: 0 ascorbic acid (vitamin C) 500 mg capsule 500 mg PO DAILY RF: 0 ferrous sulfate 325 mg (65 mg iron) tablet 325 mg PO BID RF: 0 cilostazol 100 mg tablet 100 mg PO BID RF: 0 metformin 850 mg tablet 850 mg PO TID RF: 0 Hold Instructions: Resume on 04/17/21. pravastatin 80 mg tablet 80 mg PO DAILY RF: 0 finasteride 5 mg tablet 5 mg PO DAILY RF: 0 Prilosec 10 mg susp,delayed release for recon 20 mg PO BID RF: 0 buspirone 15 mg tablet 30 mg PO BID Qty: 120 RF: 4 Eliquis 5 mg tablet 2.5 mg PO BID@0900,2100 Qty: 60 RF: 0 Aspir-81 81 mg Tablet,Delayed Release (Dr/Ec) 81 mg PO DAILY RF: 0 docusate sodium 100 mg Tablet 100 mg PO BID PRN (Reason: Constipation) RF: 0 Remeron 15 mg tablet 15 mg PO BEDTIME RF: 0 aripiprazole 15 mg tablet 15 mg PO DAILY RF: 0 bupropion HCl 300 mg tablet extended release 24 hr 300 mg PO DAILY RF: 0 lisinopril 10 mg tablet 20 mg PO DAILY Qty: 90 RF: 1 metoprolol tartrate 25 mg tablet 25 mg PO BID Qty: 0 RF: 0 Discharge Orders: Discharge ED (Routine); Ordered 06/29/21 Ordered By: Carlos Jaime Referrals: Marti Pittman DO [Primary Care Provider] - Saul Benedict MD [Physician] - Tammy Rogers MD [Staff Physician] - Discharge Diet: Advance as tolerated Patient Instructions: Opioid Safety Activity Restrictions/Additional Instructions: Encourage p.o. fluids. Take your blood pressure twice daily and maintain a blood pressure log as instructed. Follow-up with primary care physician in about 7 days to discuss any changes that may need to take place and review of the blood pressure log. Patient should transition from lying to sitting to standing slowly. Return to the emergency department symptoms fail to improve or worsen. Follow-up with Dr. Rogers oncology for your chronic anemia. Follow-up with Dr. Benedict as needed GI. May need outpatient colonoscopy. Coding Level of Care Code ED Microstrategy Developer for Chg Fwd Exam Comprehensive
[2021-06-29 21:22] VITALS: BP 143/76
[2021-06-29] MEDS: sodium chloride 0.9% 500 ML IV (22:07)
[2021-06-29 23:07] VITALS: BP 149/94; PULSE 86; RESP 21; O2SAT 99
== END 2021-06-29 23:10 | disposition home or self-care (01) ==
PROVIDERS: Physician Assistant; Emergency Provider Emergency Medicine; PCP Internal Medicine
DX: I95.1 Orthostatic hypotension (principal); I73.9 Peripheral vascular disease, unspecified; D64.89 Other specified anemias; T50.905A Adverse effect of unspecified drugs, medicaments and biological substances, initial encounter; Z79.01 Long term (current) use of anticoagulants; Z79.84 Long term (current) use of oral hypoglycemic drugs; Z79.82 Long term (current) use of aspirin; J44.9 Chronic obstructive pulmonary disease, unspecified; E11.9 Type 2 diabetes mellitus without complications; E78.5 Hyperlipidemia, unspecified; I10 Essential (primary) hypertension
CPT/HCPCS: 71045; 80053; 85025; 96360; 99283; J7040

== ENCOUNTER → 2021-07-17 12:46 | Outpatient (BNVA) | payer MEDICARE, MEDICAID, SELFPAY | PROVIDERS: PCP Internal Medicine; Visit Provider Nurse Practitioner Psychiatric/Mental Health | DX: F25.1 Schizoaffective disorder, depressive type (principal); F17.210 Nicotine dependence, cigarettes, uncomplicated; Z79.899 Other long term (current) drug therapy | CPT/HCPCS: 99214 ==

== ENCOUNTER 2021-07-20 12:59 | Inpatient (IN) | payer MEDICARE, MEDICAID, SELFPAY ==
[2021-07-20] VITALS (7 sets, daily range): BP systolic 106–153; BP diastolic 53–80; PULSE 86–109; RESP 16–22; TEMP 36.4–37.1; O2SAT 94–100; BMI 18.9
--- NOTE | 2021-07-20 16:36 | XRR_ITS ---
PROCEDURE INFORMATION: Exam: XR Chest Exam date and time: 07/20/2021 4:36 PM Age: 66 years old Clinical indication: Other: Near syncope episode; Additional info: Near syncopal episode TECHNIQUE: Imaging protocol: XR of the chest. Views: 1 view. COMPARISON: CR XR chest 1V portable [id number] 06/29/2021 2:37 PM FINDINGS: Lungs: Moderate emphysema. Negative for space consolidation. Pleural spaces: Unremarkable. No pleural effusion. No pneumothorax. Heart/Mediastinum: Unremarkable. No cardiomegaly. Bones/joints: Unremarkable. XR/XR chest 1V portable [id number] IMPRESSION: 1. No acute chest abnormality. 2. No significant change from comparison.
--- NOTE | 2021-07-20 16:36 | CTR_ITS ---
PROCEDURE INFORMATION: Exam: CT Head Without Contrast Exam date and time: 07/20/2021 4:36 PM Age: 66 years old Clinical indication: Dizziness; Additional info: Near syncopal episode and dizziness TECHNIQUE: Imaging protocol: Computed tomography of the head without contrast. Radiation optimization: All CT scans at this facility use at least one of these dose optimization techniques: automated exposure control; mA and/or kV adjustment per patient size (includes targeted exams where dose is matched to clinical indication); or iterative reconstruction. COMPARISON: No relevant prior studies available. RADIATION DOSE METRICS: Total DLP (mGy-cm): 877.85 FINDINGS: Brain: There is moderate cerebral atrophy. There is moderate diffuse heterogeneity of the white matter attenuation, consistent with chronic white matter ischemic changes. Negative for intracranial hemorrhage. No intracranial mass. No acute brain ischemia. No midline shift of the brain. Cerebral ventricles: No ventriculomegaly. Paranasal sinuses: Visualized sinuses are unremarkable. No fluid levels. Mastoid air cells: Visualized mastoid air cells are well aerated. Vasculature: Intracranial atherosclerosis. Bones/joints: Unremarkable. No acute fracture. Soft tissues: Unremarkable. CT/CT head wo con* [id number] IMPRESSION: Negative for acute intracranial abnormality. Radiation Dose CTDIVOL = (mGy): DLP = 877.85 (mGy-cm)
--- NOTE | 2021-07-20 16:36 | ECG_ITS ---
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 Measurements Intervals [place] Rate: 114 P: 27 OK: 132 QRS: 72 QRSD: 102 T: 11 QT: 310 QTc: 428 Interpretive Statements SINUS TACHYCARDIA POSSIBLE LEFT ATRIAL ENLARGEMENT [-0.1mV P-WAVE IN V1/V2] MODERATE ST DEPRESSION [0.05+ mV ST DEPRESSION] Compared to ECG 07/20/2021 16:58:31 ST (T wave) deviation now present Sinus rhythm no longer present Electronically Signed On 07-21-2021 17:09:49 CDT by Kashif Mejias M.D. [email or web address]
--- NOTE | 2021-07-20 16:37 | ED_ITS ---
Documented by User: LUDWIG Portillo 07/21/21 07:12 HPI - Weakness General: Chief complaint: ER Hold Stated complaint: BP FLUCTUATING DRASTICALLY Time Seen by Provider: 07/20/21 16:29 History of Present Illness: HPI Narrative: Patient is a 66-year-old male comes to the ED with weakness and near syncopal episode. Patient says today he got up from the couch to walk to the kitchen and he started feeling really weak and dizzy. He states he almost passed out but did not. He then sat down to rest and felt really weak and dizzy still. He took his blood pressure and he said it was really low around upper 70s over upper 50s. He took his blood pressure multiple times today before coming to ED and it kept going up and coming back down. Endorses having some blurry vision today as well. Here in the ED he says his weakness and dizziness has improved and is feeling better. He denies any chest pain, shortness of breath, abdominal pain, nausea/vomiting, bladder or bowel symptoms. Pt sees Dr. Mejias saw him on Jul 14 and was taken off of his blood pressure medications. he says he has not taken his BP meds for about a week now. Associated symptoms: Denies chest pain, chills, dysuria, fever(s), headache(s), nausea or vomiting Review of Systems Const: Reports: fatigue; Denies: fever(s) or chills Eyes: Reports: blurry vision; Denies: change in vision or eye discomfort ENMT: Denies: throat pain, odynophagia, nasal discharge or nasal congestion Card: Reports: lightheadedness and pre-syncope; Denies: chest pain, palpitations, edema, swelling of feet/ankles, dyspnea on exertion or orthopnea Resp: Denies: dyspnea, productive cough or non-productive cough GI: Denies: abdominal pain, nausea, vomiting, diarrhea, constipation or hematochezia : Denies: flank pain, difficulty urinating, dysuria or hematuria Musc: Denies: neck pain, back pain or extremity swelling Skin/Breast: Denies: rash or new lesions Neuro: Reports: dizziness; Denies: headache(s), numbness in extremities or weakness in extremities PFS ED PFSH: Medical History BPH with obstruction/lower urinary tract symptoms COPD (chronic obstructive pulmonary disease) Diabetes Dyslipidemia Essential hypertension 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 Lower urinary tract symptoms (LUTS) Nicotine dependence, cigarettes, uncomplicated Peripheral arterial disease Polyuria Schizoaffective disorder, depressive type Surgical History H/O colonoscopy yrs ago H/O esophagogastroduodenoscopy H/O foot surgery S/P angioplasty Status post femoral-popliteal bypass surgery Family History Family/Other Stroke Cancer Diabetes Hypertension Denies family history of Anesthesia complication Bleeding disorder Social History Alcohol intake: never Household members: other Details: room mate Marital status: Current occupational status: disabled History of recent travel: No Current gender identity: Male Physical Exam Const: COMMON NORMALS: no acute distress, patient oriented x3, healthy appearing and alert GENERAL APPEARANCE: cooperative and comfortable HENMT: COMMON NORMALS: normocephalic HEAD & SCALP: normocephalic MOUTH: Normal oral and palatal mucosa present THROAT: posterior oropharynx normal and uvula midline Eye: COMMON NORMALS: Equal, round and reactive pupils present and conjunctivae normal CONJUNCTIVA: Yes conjunctivae normal PUPIL: Yes Equal, round and reactive pupils present Neck/C-Spine: COMMON NORMALS: supple GENERAL: Yes normal visual inspection Resp: COMMON NORMALS: normal respiratory effort, No retractions, No use of accessory muscles and clear to auscultation bilaterally AUSCULTATION: clear to auscultation bilaterally Cardio: COMMON NORMALS: regular rate, regular rhythm, S1 normal heart sound present, S2 normal heart sound present, No gallops present (Cardio), No clicks present (Cardio), No murmurs present (Cardio) and Peripheral pulses 2+ throughout RATE: regular rate RHYTHM: regular rhythm HEART SOUNDS: S1 normal heart sound present and S2 normal heart sound present PERIPHERAL PULSES: Peripheral pulses 2+ throughout GI: COMMON NORMALS: Normal to inspection, nondistended, normoactive bowel jacky nds present, Soft to palpation, non-tender and no masses PALPATION: Yes Soft to palpation : COMMON NORMALS: Yes no CVA tenderness BLADDER/KIDNEY EXAM: Yes no CVA tenderness Back/Pelvis: COMMON NORMALS: no CVA tenderness Extremity: COMMON NORMALS: normal to inspection Neuro: COMMON NORMALS: patient oriented x3 and moves all extremities SENSORIUM/ORIENTATION: Yes alert Skin: GENERAL SKIN EXAM: dry skin Course Vital Signs: Vital signs: Vital Signs Temperature 97.7 F 07/21/21 03:57 Pulse Rate 112 H 07/21/21 05:17 Respiratory Rate 18 07/21/21 03:57 Blood Pressure 152/86 07/21/21 03:57 Pulse Oximetry 96 07/21/21 03:57 MDM - Weakness Lab Data: Attestation: I reviewed the patient's lab results. Labs: Lab Results 07/20/21 07/20/21 07/20/21 Range/Units 16:49 17:20 17:20 WBC 6.7 (4.0-10.0) 10^3/ uL RBC 2.12 L (4.1-5.3) 10^6/u L Hgb 5.9 L* (11.7-16.6) g/dL Hct 19.2 L* (42.0-52.0) % MCV 90.6 (80-94) fl MCH 27.8 L (28.0-34.0) pg MCHC 30.7 (30.0-36.0) g/dL RDW 16.0 H (12.1-15.1) % Plt Count 334 (130-400) 10^3/c mm MPV 9.0 (7.4-10.4) fL Neut % (Auto) 60.7 % Lymph % (Auto) 23.0 % [place] % (Auto) 7.5 % Eos % (Auto) 8.0 % Baso % (Auto) 0.3 % Neut # (Auto) 4.04 (1.8-7.7) 10^3/u L Lymph # (Auto) 1.5 (0.8-4.8) 10^3/u L [place] # (Auto) 0.5 (0.2-0.9) 10^3/u L Eos # (Auto) 0.5 (0.0-0.8) 10^3/u L Baso # (Auto) 0.0 (0.0-0.1) 10^3/u L Nucleated RBC % (a uto) 0 % Nucleated RBCs # 0.0 /100WBC Sodium 133 L (136-145) mmol/L Potassium 5.1 (3.5-5.1) mmol/L Chloride 99 (98-107) mmol/L Carbon Dioxide 23 (22-29) mmol/L Anion Gap 16.1 (5-19) BUN 23 (8-23) mg/dL Creatinine 1.0 (0.7-1.2) mg/dL GFR Calculation 74.8 L (90-130) mL/min Glucose 97 (65-115) mg/dL Calculated Osmolal ity 280 L (285-295) mOsm/k g Calcium 8.7 (8.5-10.5) mg/dL Total Bilirubin 0.2 (0.15-1.2) mg/dL AST 13 (0-40) U/L ALT 9 (0-41) U/L Alkaline Phosphata se 74 (40-130) IU/L Creatine Kinase 77 (39-308) U/L Troponin T Baselin e (0-15) ng/L Troponin T 120 Min [place] (0-15) ng/L Delta Troponin T (0-10) ABS# Troponin T Hi Sens 6Hr (0-15) ng/L Troponin T Hi Sens 6Hr Delta (0-12) ng/L Total Protein 6.0 L (6.6-8.7) g/dL Albumin 3.6 (3.5-5.2) g/dL Globulin 2.4 (1.3-4.6) g/dL Urine Color Yellow (Yellow) Urine Appearance Clear (CLEAR) Urine pH 5 (5-7) Ur Specific Gravit y 1.010 (1.005-1.030) Urine Protein Trace (Negative) Urine Glucose (UA) Norm (Normal) Urine Ketones Negative (Negative) Urine Blood Neg (Negative) Urine Nitrate Negative (Negative) Urine Bilirubin Neg (Negative) Urine Urobilinogen Norm (Negative) mg/dL Ur Leukocyte Colette ase Negative (Negative) Urine RBC None (0-2) /hpf Urine WBC 0-4 H (0-5) /hpf Ur Squamous Epith Cells None (0-5) /hpf Amorphous Sediment Not Reportable Urine Bacteria Trace (NONE) /hpf Blood Type Rho(D) Type Antibody Screen Crossmatch 07/20/21 07/20/21 07/20/21 Range/Units 17:20 19:12 Unknown WBC (4.0-10.0) 10^3/ uL RBC (4.1-5.3) 10^6/u L Hgb (11.7-16.6) g/dL Hct (42.0-52.0) % MCV (80-94) fl MCH (28.0-34.0) pg MCHC (30.0-36.0) g/dL RDW (12.1-15.1) % Plt Count (130-400) 10^3/c mm MPV (7.4-10.4) fL Neut % (Auto) % Lymph % (Auto) % [place] % (Auto) % Eos % (Auto) % Baso % (Auto) % Neut # (Auto) (1.8-7.7) 10^3/u L Lymph # (Auto) (0.8-4.8) 10^3/u L [place] # (Auto) (0.2-0.9) 10^3/u L Eos # (Auto) (0.0-0.8) 10^3/u L Baso # (Auto) (0.0-0.1) 10^3/u L Nucleated RBC % (a uto) % Nucleated RBCs # /100WBC Sodium (136-145) mmol/L Potassium (3.5-5.1) mmol/L Chloride (98-107) mmol/L Carbon Dioxide (22-29) mmol/L Anion Gap (5-19) BUN (8-23) mg/dL Creatinine (0.7-1.2) mg/dL GFR Calculation (90-130) mL/min Glucose (65-115) mg/dL Calculated Osmolal ity (285-295) mOsm/k g Calcium (8.5-10.5) mg/dL Total Bilirubin (0.15-1.2) mg/dL AST (0-40) U/L ALT (0-41) U/L Alkaline Phosphata se (40-130) IU/L Creatine Kinase (39-308) U/L Troponin T Baselin e 230 H* (0-15) ng/L Troponin T 120 Min [place] 239.4 H (0-15) ng/L Delta Troponin T 9.4 (0-10) ABS# Troponin T Hi Sens 6Hr (0-15) ng/L Troponin T Hi Sens 6Hr Delta (0-12) ng/L Total Protein (6.6-8.7) g/dL Albumin (3.5-5.2) g/dL Globulin (1.3-4.6) g/dL Urine Color (Yellow) Urine Appearance (CLEAR) Urine pH (5-7) Ur Specific Gravit y (1.005-1.030) Urine Protein (Negative) Urine Glucose (UA) (Normal) Urine Ketones (Negative) Urine Blood (Negative) Urine Nitrate (Negative) Urine Bilirubin (Negative) Urine Urobilinogen (Negative) mg/dL Ur Leukocyte Colette ase (Negative) Urine RBC (0-2) /hpf Urine WBC (0-5) /hpf Ur Squamous Epith Cells (0-5) /hpf Amorphous Sediment Urine Bacteria (NONE) /hpf Blood Type A Positive Rho(D) Type Positive Antibody Screen Negative Crossmatch See Detail 07/21/21 Range/Units 01:10 WBC (4.0-10.0) 10^3/ uL RBC (4.1-5.3) 10^6/u L Hgb (11.7-16.6) g/dL Hct (42.0-52.0) % MCV (80-94) fl MCH (28.0-34.0) pg MCHC (30.0-36.0) g/dL RDW (12.1-15.1) % Plt Count (130-400) 10^3/c mm MPV (7.4-10.4) fL Neut % (Auto) % Lymph % (Auto) % [place] % (Auto) % Eos % (Auto) % Baso % (Auto) % Neut # (Auto) (1.8-7.7) 10^3/u L Lymph # (Auto) (0.8-4.8) 10^3/u L [place] # (Auto) (0.2-0.9) 10^3/u L Eos # (Auto) (0.0-0.8) 10^3/u L Baso # (Auto) (0.0-0.1) 10^3/u L Nucleated RBC % (a uto) % Nucleated RBCs # /100WBC Sodium (136-145) mmol/L Potassium (3.5-5.1) mmol/L Chloride (98-107) mmol/L Carbon Dioxide (22-29) mmol/L Anion Gap (5-19) BUN (8-23) mg/dL Creatinine (0.7-1.2) mg/dL GFR Calculation (90-130) mL/min Glucose (65-115) mg/dL Calculated Osmolal ity (285-295) mOsm/k g Calcium (8.5-10.5) mg/dL Total Bilirubin (0.15-1.2) mg/dL AST (0-40) U/L ALT (0-41) U/L Alkaline Phosphata se (40-130) IU/L Creatine Kinase (39-308) U/L Troponin T Baselin e (0-15) ng/L Troponin T 120 Min [place] (0-15) ng/L Delta Troponin T (0-10) ABS# Troponin T Hi Sens 6Hr 249.8 H (0-15) ng/L Troponin T Hi Sens 6Hr Delta 19.8 H* (0-12) ng/L Total Protein (6.6-8.7) g/dL Albumin (3.5-5.2) g/dL Globulin (1.3-4.6) g/dL Urine Color (Yellow) Urine Appearance (CLEAR) Urine pH (5-7) Ur Specific Gravit y (1.005-1.030) Urine Protein (Negative) Urine Glucose (UA) (Normal) Urine Ketones (Negative) Urine Blood (Negative) Urine Nitrate (Negative) Urine Bilirubin (Negative) Urine Urobilinogen (Negative) mg/dL Ur Leukocyte Colette ase (Negative) Urine RBC (0-2) /hpf Urine WBC (0-5) /hpf Ur Squamous Epith Cells (0-5) /hpf Amorphous Sediment Urine Bacteria (NONE) /hpf Blood Type Rho(D) Type Antibody Screen Crossmatch Discharge Plan Discharge Patient Disposition: Admitted As Inpatient Admit Provider: Johanne Wyman Clinical Impression: Anemia, GI bleeding, Elevated troponin Condition: Stable Sign Out Sign Out Data: Patient Sign Out occurred on 07/20/21 at 17:14. Patient's care was discussed, and care was transferred from to LUDWIG Harvey. 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 Lower urinary tract symptoms (LUTS) Nicotine dependence, cigarettes, uncomplicated Peripheral arterial disease Polyuria Schizoaffective disorder, depressive type Surgical History H/O colonoscopy yrs ago H/O esophagogastroduodenoscopy H/O foot surgery S/P angioplasty Status post femoral-popliteal bypass surgery Family History Family/Other Stroke Cancer Diabetes Hypertension Denies family history of Anesthesia complication Bleeding disorder Social History Alcohol intake: never Household members: other Details: room mate Marital status: Current occupational status: disabled History of recent travel: No Current gender identity: Male Physical Exam GI: RECTAL EXAM: Yes visual inspection normal and Yes heme positive stool Course Consultations: Consultation #1: Dr. Garrett-graciously agrees to evaluate/consult on patient while in hospital and determine need for endoscopy/c olonoscopy Consultation #2: Dr. Wyman-kindly accepts admission Vital Signs: Vital signs: Vital Signs Temperature 97.7 F 07/21/21 03:57 Pulse Rate 112 H 07/21/21 05:17 Respiratory Rate 18 07/21/21 03:57 Blood Pressure 152/86 07/21/21 03:57 Pulse Oximetry 96 07/21/21 03:57 MDM - Weakness MDM Narrative: Medical decision making narrative: Patient is a nice 66-year-old male here for complaints of dizziness, weakness, low blood pressure readings at home. Symptoms have been present over the past several weeks. He recently saw his publications production supervisor Dr. Olmstead who discontinued his hypertensive medications. Also discontinued Eliquis secondary to fall risk. He was on this given his history of PVD and stenting. He also was going to schedule patient for lexiscan, echo, and carotid US. Patient states symptoms most of the time start with positional changes. He has been normotensive throughout his stay here. Orthostatic blood pressures were normal. He did complain of dizziness with ambulation. Patient noted to have a hemoglobin of 5.9. His WILI was positive for occult blood. He has no abdominal pains. Patient has had issues with anemia previously and has had endoscopies/colonoscopies/capsule endoscopy and even had a bone marrow biopsy after hematology evaluation. Initial trop elevated at 230 with a delta of 9. His EKG and repeat EKG w/o ischemia. He has no active chest pain. Case discussed with Dr. Mantilla who agrees with plan admission. Unfortunately we do not have hospital beds so he will be an ER HOLD. Spoke with Dr. Garrett library circulation assistant for GI who will consult on patient in hospital for GI bleed. Spoke to Dr. Wyman who accepts admission. Lab Data: Labs: Lab Results 07/20/21 07/20/21 07/20/21 Range/Units 16:49 17:20 17:20 WBC 6.7 (4.0-10.0) 10^3/ uL RBC 2.12 L (4.1-5.3) 10^6/u L Hgb 5.9 L* (11.7-16.6) g/dL Hct 19.2 L* (42.0-52.0) % MCV 90.6 (80-94) fl MCH 27.8 L (28.0-34.0) pg MCHC 30.7 (30.0-36.0) g/dL RDW 16.0 H (12.1-15.1) % Plt Count 334 (130-400) 10^3/c mm MPV 9.0 (7.4-10.4) fL Neut % (Auto) 60.7 % Lymph % (Auto) 23.0 % [place] % (Auto) 7.5 % Eos % (Auto) 8.0 % Baso % (Auto) 0.3 % Neut # (Auto) 4.04 (1.8-7.7) 10^3/u L Lymph # (Auto) 1.5 (0.8-4.8) 10^3/u L [place] # (Auto) 0.5 (0.2-0.9) 10^3/u L Eos # (Auto) 0.5 (0.0-0.8) 10^3/u L Baso # (Auto) 0.0 (0.0-0.1) 10^3/u L Nucleated RBC % (a uto) 0 % Nucleated RBCs # 0.0 /100WBC Sodium 133 L (136-145) mmol/L Potassium 5.1 (3.5-5.1) mmol/L Chloride 99 (98-107) mmol/L Carbon Dioxide 23 (22-29) mmol/L Anion Gap 16.1 (5-19) BUN 23 (8-23) mg/dL Creatinine 1.0 (0.7-1.2) mg/dL GFR Calculation 74.8 L (90-130) mL/min Glucose 97 (65-115) mg/dL Calculated Osmolal ity 280 L (285-295) mOsm/k g Calcium 8.7 (8.5-10.5) mg/dL Total Bilirubin 0.2 (0.15-1.2) mg/dL AST 13 (0-40) U/L ALT 9 (0-41) U/L Alkaline Phosphata se 74 (40-130) IU/L Creatine Kinase 77 (39-308) U/L Troponin T Baselin e (0-15) ng/L Troponin T 120 Min [place] (0-15) ng/L Delta Troponin T (0-10) ABS# Troponin T Hi Sens 6Hr (0-15) ng/L Troponin T Hi Sens 6Hr Delta (0-12) ng/L Total Protein 6.0 L (6.6-8.7) g/dL Albumin 3.6 (3.5-5.2) g/dL Globulin 2.4 (1.3-4.6) g/dL Urine Color Yellow (Yellow) Urine Appearance Clear (CLEAR) Urine pH 5 (5-7) Ur Specific Gravit y 1.010 (1.005-1.030) Urine Protein Trace (Negative) Urine Glucose (UA) Norm (Normal) Urine Ketones Negative (Negative) Urine Blood Neg (Negative) Urine Nitrate Negative (Negative) Urine Bilirubin Neg (Negative) Urine Urobilinogen Norm (Negative) mg/dL Ur Leukocyte Colette ase Negative (Negative) Urine RBC None (0-2) /hpf Urine WBC 0-4 H (0-5) /hpf Ur Squamous Epith Cells None (0-5) /hpf Amorphous Sediment Not Reportable Urine Bacteria Trace (NONE) /hpf Blood Type Rho(D) Type Antibody Screen Crossmatch 07/20/21 07/20/21 07/20/21 Range/Units 17:20 19:12 Unknown WBC (4.0-10.0) 10^3/ uL RBC (4.1-5.3) 10^6/u L Hgb (11.7-16.6) g/dL Hct (42.0-52.0) % MCV (80-94) fl MCH (28.0-34.0) pg MCHC (30.0-36.0) g/dL RDW (12.1-15.1) % Plt Count (130-400) 10^3/c mm MPV (7.4-10.4) fL Neut % (Auto) % Lymph % (Auto) % [place] % (Auto) % Eos % (Auto) % Baso % (Auto) % Neut # (Auto) (1.8-7.7) 10^3/u L Lymph # (Auto) (0.8-4.8) 10^3/u L [place] # (Auto) (0.2-0.9) 10^3/u L Eos # (Auto) (0.0-0.8) 10^3/u L Baso # (Auto) (0.0-0.1) 10^3/u L Nucleated RBC % (a uto) % Nucleated RBCs # /100WBC Sodium (136-145) mmol/L Potassium (3.5-5.1) mmol/L Chloride (98-107) mmol/L Carbon Dioxide (22-29) mmol/L Anion Gap (5-19) BUN (8-23) mg/dL Creatinine (0.7-1.2) mg/dL GFR Calculation (90-130) mL/min Glucose (65-115) mg/dL Calculated Osmolal ity (285-295) mOsm/k g Calcium (8.5-10.5) mg/dL Total Bilirubin (0.15-1.2) mg/dL AST (0-40) U/L ALT (0-41) U/L Alkaline Phosphata se (40-130) IU/L Creatine Kinase (39-308) U/L Troponin T Baselin e 230 H* (0-15) ng/L Troponin T 120 Min [place] 239.4 H (0-15) ng/L Delta Troponin T 9.4 (0-10) ABS# Troponin T Hi Sens 6Hr (0-15) ng/L Troponin T Hi Sens 6Hr Delta (0-12) ng/L Total Protein (6.6-8.7) g/dL Albumin (3.5-5.2) g/dL Globulin (1.3-4.6) g/dL Urine Color (Yellow) Urine Appearance (CLEAR) Urine pH (5-7) Ur Specific Gravit y (1.005-1.030) Urine Protein (Negative) Urine Glucose (UA) (Normal) Urine Ketones (Negative) Urine Blood (Negative) Urine Nitrate (Negative) Urine Bilirubin (Negative) Urine Urobilinogen (Negative) mg/dL Ur Leukocyte Colette ase (Negative) Urine RBC (0-2) /hpf Urine WBC (0-5) /hpf Ur Squamous Epith Cells (0-5) /hpf Amorphous Sediment Urine Bacteria (NONE) /hpf Blood Type A Positive Rho(D) Type Positive Antibody Screen Negative Crossmatch See Detail 07/21/21 Range/Units 01:10 WBC (4.0-10.0) 10^3/ uL RBC (4.1-5.3) 10^6/u L Hgb (11.7-16.6) g/dL Hct (42.0-52.0) % MCV (80-94) fl MCH (28.0-34.0) pg MCHC (30.0-36.0) g/dL RDW (12.1-15.1) % Plt Count (130-400) 10^3/c mm MPV (7.4-10.4) fL Neut % (Auto) % Lymph % (Auto) % [place] % (Auto) % Eos % (Auto) % Baso % (Auto) % Neut # (Auto) (1.8-7.7) 10^3/u L Lymph # (Auto) (0.8-4.8) 10^3/u L [place] # (Auto) (0.2-0.9) 10^3/u L Eos # (Auto) (0.0-0.8) 10^3/u L Baso # (Auto) (0.0-0.1) 10^3/u L Nucleated RBC % (a uto) % Nucleated RBCs # /100WBC Sodium (136-145) mmol/L Potassium (3.5-5.1) mmol/L Chloride (98-107) mmol/L Carbon Dioxide (22-29) mmol/L Anion Gap (5-19) BUN (8-23) mg/dL Creatinine (0.7-1.2) mg/dL GFR Calculation (90-130) mL/min Glucose (65-115) mg/dL Calculated Osmolal ity (285-295) mOsm/k g Calcium (8.5-10.5) mg/dL Total Bilirubin (0.15-1.2) mg/dL AST (0-40) U/L ALT (0-41) U/L Alkaline Phosphata se (40-130) IU/L Creatine Kinase (39-308) U/L Troponin T Baselin e (0-15) ng/L Troponin T 120 Min [place] (0-15) ng/L Delta Troponin T (0-10) ABS# Troponin T Hi Sens 6Hr 249.8 H (0-15) ng/L Troponin T Hi Sens 6Hr Delta 19.8 H* (0-12) ng/L Total Protein (6.6-8.7) g/dL Albumin (3.5-5.2) g/dL Globulin (1.3-4.6) g/dL Urine Color (Yellow) Urine Appearance (CLEAR) Urine pH (5-7) Ur Specific Gravit y (1.005-1.030) Urine Protein (Negative) Urine Glucose (UA) (Normal) Urine Ketones (Negative) Urine Blood (Negative) Urine Nitrate (Negative) Urine Bilirubin (Negative) Urine Urobilinogen (Negative) mg/dL Ur Leukocyte Colette ase (Negative) Urine RBC (0-2) /hpf Urine WBC (0-5) /hpf Ur Squamous Epith Cells (0-5) /hpf Amorphous Sediment Urine Bacteria (NONE) /hpf Blood Type Rho(D) Type Antibody Screen Crossmatch Discharge Plan Discharge Patient Disposition: Admitted As Inpatient Admit Provider: Johanne Wyman Clinical Impression: Anemia, GI bleeding, Elevated troponin Condition: Stable Sign Out Sign Out Data: Patient Sign Out occurred on 07/20/21 at 17:14. Patient's care was discussed, and care was transferred from to LUDWIG Harvey. Coding Level of Care Code ED Tray Room Worker for Chg Fwd Exam Comprehensive Documented by User: Molly Mantilla MD 07/20/21 23:05 HPI - Weakness General: Chief complaint: ER Hold Stated complaint: BP FLUCTUATING DRASTICALLY Time Seen by Provider: 07/20/21 16:29 PFSH ED PFSH: Medical History BPH with obstruction/lower urinary tract symptoms COPD (chronic obstructive pulmonary disease) Diabetes Dyslipidemia Essential hypertension 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 Lower urinary tract symptoms (LUTS) Nicotine dependence, cigarettes, uncomplicated Peripheral arterial disease Polyuria Schizoaffective disorder, depressive type Surgical History H/O colonoscopy yrs ago H/O esophagogastroduodenoscopy H/O foot surgery S/P angioplasty Status post femoral-popliteal bypass surgery Family History Family/Other Stroke Cancer Diabetes Hypertension Denies family history of Anesthesia complication Bleeding disorder Social History Alcohol intake: never Household members: other Details: room mate Marital status: Current occupational status: disabled History of recent travel: No Current gender identity: Male Course Vital Signs: Vital signs: Vital Signs Temperature 97.7 F 07/21/21 03:57 Pulse Rate 112 H 07/21/21 05:17 Respiratory Rate 18 07/21/21 03:57 Blood Pressure 152/86 07/21/21 03:57 Pulse Oximetry 96 07/21/21 03:57 MDM - Weakness MDM Narrative: Medical decision making narrative: ASA and Heparin was not given due to unclear baseline troponemia and in the setting ongoing GI bleeding. Inpatient team will trend number. Lab Data: Labs: Lab Results 07/20/21 07/20/21 07/20/21 Range/Units 16:49 17:20 17:20 WBC 6.7 (4.0-10.0) 10^3/ uL RBC 2.12 L (4.1-5.3) 10^6/u L Hgb 5.9 L* (11.7-16.6) g/dL Hct 19.2 L* (42.0-52.0) % MCV 90.6 (80-94) fl MCH 27.8 L (28.0-34.0) pg MCHC 30.7 (30.0-36.0) g/dL RDW 16.0 H (12.1-15.1) % Plt Count 334 (130-400) 10^3/c mm MPV 9.0 (7.4-10.4) fL Neut % (Auto) 60.7 % Lymph % (Auto) 23.0 % [place] % (Auto) 7.5 % Eos % (Auto) 8.0 % Baso % (Auto) 0.3 % Neut # (Auto) 4.04 (1.8-7.7) 10^3/u L Lymph # (Auto) 1.5 (0.8-4.8) 10^3/u L [place] # (Auto) 0.5 (0.2-0.9) 10^3/u L Eos # (Auto) 0.5 (0.0-0.8) 10^3/u L Baso # (Auto) 0.0 (0.0-0.1) 10^3/u L Nucleated RBC % (a uto) 0 % Nucleated RBCs # 0.0 /100WBC Sodium 133 L (136-145) mmol/L Potassium 5.1 (3.5-5.1) mmol/L Chloride 99 (98-107) mmol/L Carbon Dioxide 23 (22-29) mmol/L Anion Gap 16.1 (5-19) BUN 23 (8-23) mg/dL Creatinine 1.0 (0.7-1.2) mg/dL GFR Calculation 74.8 L (90-130) mL/min Glucose 97 (65-115) mg/dL Calculated Osmolal ity 280 L (285-295) mOsm/k g Calcium 8.7 (8.5-10.5) mg/dL Total Bilirubin 0.2 (0.15-1.2) mg/dL AST 13 (0-40) U/L ALT 9 (0-41) U/L Alkaline Phosphata se 74 (40-130) IU/L Creatine Kinase 77 (39-308) U/L Troponin T Baselin e (0-15) ng/L Troponin T 120 Min [place] (0-15) ng/L Delta Troponin T (0-10) ABS# Troponin T Hi Sens 6Hr (0-15) ng/L Troponin T Hi Sens 6Hr Delta (0-12) ng/L Total Protein 6.0 L (6.6-8.7) g/dL Albumin 3.6 (3.5-5.2) g/dL Globulin 2.4 (1.3-4.6) g/dL Urine Color Yellow (Yellow) Urine Appearance Clear (CLEAR) Urine pH 5 (5-7) Ur Specific Gravit y 1.010 (1.005-1.030) Urine Protein Trace (Negative) Urine Glucose (UA) Norm (Normal) Urine Ketones Negative (Negative) Urine Blood Neg (Negative) Urine Nitrate Negative (Negative) Urine Bilirubin Neg (Negative) Urine Urobilinogen Norm (Negative) mg/dL Ur Leukocyte Colette ase Negative (Negative) Urine RBC None (0-2) /hpf Urine WBC 0-4 H (0-5) /hpf Ur Squamous Epith Cells None (0-5) /hpf Amorphous Sediment Not Reportable Urine Bacteria Trace (NONE) /hpf Blood Type Rho(D) Type Antibody Screen Crossmatch 07/20/21 07/20/21 07/20/21 Range/Units 17:20 19:12 Unknown WBC (4.0-10.0) 10^3/ uL RBC (4.1-5.3) 10^6/u L Hgb (11.7-16.6) g/dL Hct (42.0-52.0) % MCV (80-94) fl MCH (28.0-34.0) pg MCHC (30.0-36.0) g/dL RDW (12.1-15.1) % Plt Count (130-400) 10^3/c mm MPV (7.4-10.4) fL Neut % (Auto) % Lymph % (Auto) % [place] % (Auto) % Eos % (Auto) % Baso % (Auto) % Neut # (Auto) (1.8-7.7) 10^3/u L Lymph # (Auto) (0.8-4.8) 10^3/u L [place] # (Auto) (0.2-0.9) 10^3/u L Eos # (Auto) (0.0-0.8) 10^3/u L Baso # (Auto) (0.0-0.1) 10^3/u L Nucleated RBC % (a uto) % Nucleated RBCs # /100WBC Sodium (136-145) mmol/L Potassium (3.5-5.1) mmol/L Chloride (98-107) mmol/L Carbon Dioxide (22-29) mmol/L Anion Gap (5-19) BUN (8-23) mg/dL Creatinine (0.7-1.2) mg/dL GFR Calculation (90-130) mL/min Glucose (65-115) mg/dL Calculated Osmolal ity (285-295) mOsm/k g Calcium (8.5-10.5) mg/dL Total Bilirubin (0.15-1.2) mg/dL AST (0-40) U/L ALT (0-41) U/L Alkaline Phosphata se (40-130) IU/L Creatine Kinase (39-308) U/L Troponin T Baselin e 230 H* (0-15) ng/L Troponin T 120 Min [place] 239.4 H (0-15) ng/L Delta Troponin T 9.4 (0-10) ABS# Troponin T Hi Sens 6Hr (0-15) ng/L Troponin T Hi Sens 6Hr Delta (0-12) ng/L Total Protein (6.6-8.7) g/dL Albumin (3.5-5.2) g/dL Globulin (1.3-4.6) g/dL Urine Color (Yellow) Urine Appearance (CLEAR) Urine pH (5-7) Ur Specific Gravit y (1.005-1.030) Urine Protein (Negative) Urine Glucose (UA) (Normal) Urine Ketones (Negative) Urine Blood (Negative) Urine Nitrate (Negative) Urine Bilirubin (Negative) Urine Urobilinogen (Negative) mg/dL Ur Leukocyte Colette ase (Negative) Urine RBC (0-2) /hpf Urine WBC (0-5) /hpf Ur Squamous Epith Cells (0-5) /hpf Amorphous Sediment Urine Bacteria (NONE) /hpf Blood Type A Positive Rho(D) Type Positive Antibody Screen Negative Crossmatch See Detail 07/21/21 Range/Units 01:10 WBC (4.0-10.0) 10^3/ uL RBC (4.1-5.3) 10^6/u L Hgb (11.7-16.6) g/dL Hct (42.0-52.0) % MCV (80-94) fl MCH (28.0-34.0) pg MCHC (30.0-36.0) g/dL RDW (12.1-15.1) % Plt Count (130-400) 10^3/c mm MPV (7.4-10.4) fL Neut % (Auto) % Lymph % (Auto) % [place] % (Auto) % Eos % (Auto) % Baso % (Auto) % Neut # (Auto) (1.8-7.7) 10^3/u L Lymph # (Auto) (0.8-4.8) 10^3/u L [place] # (Auto) (0.2-0.9) 10^3/u L Eos # (Auto) (0.0-0.8) 10^3/u L Baso # (Auto) (0.0-0.1) 10^3/u L Nucleated RBC % (a uto) % Nucleated RBCs # /100WBC Sodium (136-145) mmol/L Potassium (3.5-5.1) mmol/L Chloride (98-107) mmol/L Carbon Dioxide (22-29) mmol/L Anion Gap (5-19) BUN (8-23) mg/dL Creatinine (0.7-1.2) mg/dL GFR Calculation (90-130) mL/min Glucose (65-115) mg/dL Calculated Osmolal ity (285-295) mOsm/k g Calcium (8.5-10.5) mg/dL Total Bilirubin (0.15-1.2) mg/dL AST (0-40) U/L ALT (0-41) U/L Alkaline Phosphata se (40-130) IU/L Creatine Kinase (39-308) U/L Troponin T Baselin e (0-15) ng/L Troponin T 120 Min [place] (0-15) ng/L Delta Troponin T (0-10) ABS# Troponin T Hi Sens 6Hr 249.8 H (0-15) ng/L Troponin T Hi Sens 6Hr Delta 19.8 H* (0-12) ng/L Total Protein (6.6-8.7) g/dL Albumin (3.5-5.2) g/dL Globulin (1.3-4.6) g/dL Urine Color (Yellow) Urine Appearance (CLEAR) Urine pH (5-7) Ur Specific Gravit y (1.005-1.030) Urine Protein (Negative) Urine Glucose (UA) (Normal) Urine Ketones (Negative) Urine Blood (Negative) Urine Nitrate (Negative) Urine Bilirubin (Negative) Urine Urobilinogen (Negative) mg/dL Ur Leukocyte Colette ase (Negative) Urine RBC (0-2) /hpf Urine WBC (0-5) /hpf Ur Squamous Epith Cells (0-5) /hpf Amorphous Sediment Urine Bacteria (NONE) /hpf Blood Type Rho(D) Type Antibody Screen Crossmatch Discharge Plan Discharge Patient Disposition: Admitted As Inpatient Admit Provider: Johanne Wyman Clinical Impression: Anemia, GI bleeding, Elevated troponin Condition: Stable Sign Out Sign Out Data: Patient Sign Out occurred on 07/20/21 at 17:14. Patient's care was discussed, and care was transferred from to LUDWIG Harvey. 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 Lower urinary tract symptoms (LUTS) Nicotine dependence, cigarettes, uncomplicated Peripheral arterial disease Polyuria Schizoaffective disorder, depressive type Surgical History H/O colonoscopy yrs ago H/O esophagogastroduodenoscopy H/O foot surgery S/P angioplasty Status post femoral-popliteal bypass surgery Family History Family/Other Stroke Cancer Diabetes Hypertension Denies family history of Anesthesia complication Bleeding disorder Social History Alcohol intake: never Household members: other Details: room mate Marital status: Current occupational status: disabled History of recent travel: No Current gender identity: Male Course Vital Signs: Vital signs: Vital Signs Temperature 97.7 F 07/21/21 03:57 Pulse Rate 112 H 07/21/21 05:17 Respiratory Rate 18 07/21/21 03:57 Blood Pressure 152/86 07/21/21 03:57 Pulse Oximetry 96 07/21/21 03:57 MDM - Weakness Lab Data: Labs: Lab Results 07/20/21 07/20/21 07/20/21 Range/Units 16:49 17:20 17:20 WBC 6.7 (4.0-10.0) 10^3/ uL RBC 2.12 L (4.1-5.3) 10^6/u L Hgb 5.9 L* (11.7-16.6) g/dL Hct 19.2 L* (42.0-52.0) % MCV 90.6 (80-94) fl MCH 27.8 L (28.0-34.0) pg MCHC 30.7 (30.0-36.0) g/dL RDW 16.0 H (12.1-15.1) % Plt Count 334 (130-400) 10^3/c mm MPV 9.0 (7.4-10.4) fL Neut % (Auto) 60.7 % Lymph % (Auto) 23.0 % [place] % (Auto) 7.5 % Eos % (Auto) 8.0 % Baso % (Auto) 0.3 % Neut # (Auto) 4.04 (1.8-7.7) 10^3/u L Lymph # (Auto) 1.5 (0.8-4.8) 10^3/u L [place] # (Auto) 0.5 (0.2-0.9) 10^3/u L Eos # (Auto) 0.5 (0.0-0.8) 10^3/u L Baso # (Auto) 0.0 (0.0-0.1) 10^3/u L Nucleated RBC % (a uto) 0 % Nucleated RBCs # 0.0 /100WBC Sodium 133 L (136-145) mmol/L Potassium 5.1 (3.5-5.1) mmol/L Chloride 99 (98-107) mmol/L Carbon Dioxide 23 (22-29) mmol/L Anion Gap 16.1 (5-19) BUN 23 (8-23) mg/dL Creatinine 1.0 (0.7-1.2) mg/dL GFR Calculation 74.8 L (90-130) mL/min Glucose 97 (65-115) mg/dL Calculated Osmolal ity 280 L (285-295) mOsm/k g Calcium 8.7 (8.5-10.5) mg/dL Total Bilirubin 0.2 (0.15-1.2) mg/dL AST 13 (0-40) U/L ALT 9 (0-41) U/L Alkaline Phosphata se 74 (40-130) IU/L Creatine Kinase 77 (39-308) U/L Troponin T Baselin e (0-15) ng/L Troponin T 120 Min [place] (0-15) ng/L Delta Troponin T (0-10) ABS# Troponin T Hi Sens 6Hr (0-15) ng/L Troponin T Hi Sens 6Hr Delta (0-12) ng/L Total Protein 6.0 L (6.6-8.7) g/dL Albumin 3.6 (3.5-5.2) g/dL Globulin 2.4 (1.3-4.6) g/dL Urine Color Yellow (Yellow) Urine Appearance Clear (CLEAR) Urine pH 5 (5-7) Ur Specific Gravit y 1.010 (1.005-1.030) Urine Protein Trace (Negative) Urine Glucose (UA) Norm (Normal) Urine Ketones Negative (Negative) Urine Blood Neg (Negative) Urine Nitrate Negative (Negative) Urine Bilirubin Neg (Negative) Urine Urobilinogen Norm (Negative) mg/dL Ur Leukocyte Colette ase Negative (Negative) Urine RBC None (0-2) /hpf Urine WBC 0-4 H (0-5) /hpf Ur Squamous Epith Cells None (0-5) /hpf Amorphous Sediment Not Reportable Urine Bacteria Trace (NONE) /hpf Blood Type Rho(D) Type Antibody Screen Crossmatch 07/20/21 07/20/21 07/20/21 Range/Units 17:20 19:12 Unknown WBC (4.0-10.0) 10^3/ uL RBC (4.1-5.3) 10^6/u L Hgb (11.7-16.6) g/dL Hct (42.0-52.0) % MCV (80-94) fl MCH (28.0-34.0) pg MCHC (30.0-36.0) g/dL RDW (12.1-15.1) % Plt Count (130-400) 10^3/c mm MPV (7.4-10.4) fL Neut % (Auto) % Lymph % (Auto) % [place] % (Auto) % Eos % (Auto) % Baso % (Auto) % Neut # (Auto) (1.8-7.7) 10^3/u L Lymph # (Auto) (0.8-4.8) 10^3/u L [place] # (Auto) (0.2-0.9) 10^3/u L Eos # (Auto) (0.0-0.8) 10^3/u L Baso # (Auto) (0.0-0.1) 10^3/u L Nucleated RBC % (a uto) % Nucleated RBCs # /100WBC Sodium (136-145) mmol/L Potassium (3.5-5.1) mmol/L Chloride (98-107) mmol/L Carbon Dioxide (22-29) mmol/L Anion Gap (5-19) BUN (8-23) mg/dL Creatinine (0.7-1.2) mg/dL GFR Calculation (90-130) mL/min Glucose (65-115) mg/dL Calculated Osmolal ity (285-295) mOsm/k g Calcium (8.5-10.5) mg/dL Total Bilirubin (0.15-1.2) mg/dL AST (0-40) U/L ALT (0-41) U/L Alkaline Phosphata se (40-130) IU/L Creatine Kinase (39-308) U/L Troponin T Baselin e 230 H* (0-15) ng/L Troponin T 120 Min [place] 239.4 H (0-15) ng/L Delta Troponin T 9.4 (0-10) ABS# Troponin T Hi Sens 6Hr (0-15) ng/L Troponin T Hi Sens 6Hr Delta (0-12) ng/L Total Protein (6.6-8.7) g/dL Albumin (3.5-5.2) g/dL Globulin (1.3-4.6) g/dL Urine Color (Yellow) Urine Appearance (CLEAR) Urine pH (5-7) Ur Specific Gravit y (1.005-1.030) Urine Protein (Negative) Urine Glucose (UA) (Normal) Urine Ketones (Negative) Urine Blood (Negative) Urine Nitrate (Negative) Urine Bilirubin (Negative) Urine Urobilinogen (Negative) mg/dL Ur Leukocyte [place] ase (Negative) Urine RBC (0-2) /hpf Urine WBC (0-5) /hpf Ur Squamous Epith Cells (0-5) /hpf Amorphous Sediment Urine Bacteria (NONE) /hpf Blood Type A Positive Rho(D) Type Positive Antibody Screen Negative Crossmatch See Detail 08/24/21 Range/Units 01:10 WBC (4.0-10.0) 10^3/ uL RBC (4.1-5.3) 10^6/u L Hgb (11.7-16.6) g/dL Hct (42.0-52.0) % MCV (80-94) fl MCH (28.0-34.0) pg MCHC (30.0-36.0) g/dL RDW (12.1-15.1) % Plt Count (130-400) 10^3/c mm MPV (7.4-10.4) fL Neut % (Auto) % Lymph % (Auto) % [place] % (Auto) % Eos % (Auto) % Baso % (Auto) % Neut # (Auto) (1.8-7.7) 10^3/u L Lymph # (Auto) (0.8-4.8) 10^3/u L [place] # (Auto) (0.2-0.9) 10^3/u L Eos # (Auto) (0.0-0.8) 10^3/u L Baso # (Auto) (0.0-0.1) 10^3/u L Nucleated RBC % (a uto) % Nucleated RBCs # /100WBC Sodium (136-145) mmol/L Potassium (3.5-5.1) mmol/L Chloride (98-107) mmol/L Carbon Dioxide (22-29) mmol/L Anion Gap (5-19) BUN (8-23) mg/dL Creatinine (0.7-1.2) mg/dL GFR Calculation (90-130) mL/min Glucose (65-115) mg/dL Calculated Osmolal ity (285-295) mOsm/k g Calcium (8.5-10.5) mg/dL Total Bilirubin (0.15-1.2) mg/dL AST (0-40) U/L ALT (0-41) U/L Alkaline Phosphata se (40-130) IU/L Creatine Kinase (39-308) U/L Troponin T Baselin e (0-15) ng/L Troponin T 120 Min [place] (0-15) ng/L Delta Troponin T (0-10) ABS# Troponin T Hi Sens 6Hr 249.8 H (0-15) ng/L Troponin T Hi Sens 6Hr Delta 19.8 H* (0-12) ng/L Total Protein (6.6-8.7) g/dL Albumin (3.5-5.2) g/dL Globulin (1.3-4.6) g/dL Urine Color (Yellow) Urine Appearance (CLEAR) Urine pH (5-7) Ur Specific Gravit y (1.005-1.030) Urine Protein (Negative) Urine Glucose (UA) (Normal) Urine Ketones (Negative) Urine Blood (Negative) Urine Nitrate (Negative) Urine Bilirubin (Negative) Urine Urobilinogen (Negative) mg/dL Ur Leukocyte Colette ase (Negative) Urine RBC (0-2) /hpf Urine WBC (0-5) /hpf Ur Squamous Epith Cells (0-5) /hpf Amorphous Sediment Urine Bacteria (NONE) /hpf Blood Type Rho(D) Type Antibody Screen Crossmatch Discharge Plan Discharge Patient Disposition: Admitted As Inpatient Admit Provider: Johanne Wyman Clinical Impression: Anemia, GI bleeding, Elevated troponin Condition: Stable Sign Out Sign Out Data: Patient Sign Out occurred on 07/20/21 at 17:14. Patient's care was discussed, and care was transferred from to LUDWIG Harvey. Coding Level of Care Code ED Tray Room Worker for Chg Fwd Exam Comprehensive
[2021-07-20 17:51] LABS: Basophils % 0.3 %; Eosinophils # 0.5 10^3/uL (0.0-0.8); Lymphocytes # 1.5 10^3/uL (0.8-4.8); Mean Corpuscular HGB Conc 30.7 g/dL (30.0-36.0); Mean Corpuscular Hemoglobin 27.8 pg (28.0-34.0); Mean Corpuscular Volume 90.6 fl (80-94); Monocytes # 0.5 10^3/uL (0.2-0.9); Monocytes % 7.5 %; Neutrophils # 4.04 10^3/uL (1.8-7.7); Neutrophils % 60.7 %; Nucleated Red Blood Cells % 0 %; Platelet Count 334 10^3/cmm (130-400); Red Blood Count 2.12 10^6/uL (4.1-5.3); White Blood Count 6.7 10^3/uL (4.0-10.0)
[2021-07-20 17:56] LABS: Hematocrit 19.2 % (42.0-52.0); Hemoglobin 5.9 g/dL (11.7-16.6)
[2021-07-20 18:13] LABS: Alanine Aminotransferase 9 U/L (0-41); Albumin Level 3.6 g/dL (3.5-5.2); Alkaline Phosphatase 74 IU/L (40-130); Anion Gap 16.1 (5-19); Aspartate Amino Transferase 13 U/L (0-40); Blood Urea Nitrogen 23 mg/dL (8-23); Calcium 8.7 mg/dL (8.5-10.5); Carbon Dioxide 23 mmol/L (22-29); Chloride 99 mmol/L (98-107); Creatine Phosphokinase 77 U/L (39-308); Globulin 2.4 g/dL (1.3-4.6); Glomerular Filtration Rate 74.8 mL/min (90-130); Glucose 97 mg/dL (65-115); Osmolality Calculated 280 mOsm/kg (285-295); Potassium 5.1 mmol/L (3.5-5.1); Sodium 133 mmol/L (136-145); Total Bilirubin 0.2 mg/dL (0.15-1.2)
[2021-07-20 18:14] LABS: Troponin(5th) Baseline 230 ng/L (0-15)
--- NOTE | 2021-07-20 18:21 | PC.NURSE ---
PATIENT BASELINE TROPONIN 230. LUDWIG ELISE, NOTIFIED.
[2021-07-20 18:29] LABS: Add Urine Microscopic? YES; Bilirubin Urine Neg (Negative); Blood Urine Neg (Negative); Glucose Urine UA Norm (Normal); Ketones Urine Negative (Negative); Leukocyte Esterase Urine Negative (Negative); Nitrate Urine Negative (Negative); Protein Urine Trace (Negative); Urine Appearance Clear (CLEAR); Urine Color Yellow (Yellow); Urobilinogen Urine Norm (Negative); pH Urine 5 (5-7)
[2021-07-20 18:30] LABS: Add Urine Culture? No; Bacteria Urine TRACE /hpf; WBC Urine 0-4 /hpf (0-5)
--- NOTE | 2021-07-20 18:36 | ECG_ITS ---
[facility] Test Date: 2021-07-20 Pat Name: Hussein Fitch Department: Room: Gender: Male Transit Man: : 1955 Requested By: Sang Mosley Order Number: [id number] Da Silva MD: Leigh Hamm M.D. Measurements Intervals [place] Rate: 91 P: 54 MD: 182 QRS: 79 QRSD: 101 T: 44 QT: 348 QTc: 429 Interpretive Statements SINUS RHYTHM No previous ECG available for comparison Electronically Signed On 07-20-2021 20:24:14 CDT by Leigh Hamm M.D. [id number]
--- NOTE | 2021-07-20 18:40 | PC.NURSE ---
THIS NURSE HELPED CHANGE THE PATIENT INTO A HOSPITAL GOWN, TYPE AND SCREEN COLLECTED. PATIENT IN BED WITH TV ON, VOICED CONCERNS ABOUT UPCOMING PROCEDURES. THIS NURSE ASKED IF HE WOULD LIKE TO SPEAK FURTHER TO PHYSICIAN OR PA. PATIENT REFUSED. PATIENT HAS NO FURTHER NEEDS AT THIS TIME.
[2021-07-20 19:46] LABS: Troponin 5 2HR Delta 9.4 ABS# (0-10)
[2021-07-20 19:49] LABS: Troponin 5 2HR 239.4 ng/L (0-15)
[2021-07-20] MEDS: nicotine 21 mg Patch 1 PATCH TRANSDERMA (20:36)
[2021-07-20] MEDS: sodium chloride 0.9% (100 ml) 100 ML 75 ML (20:39)
--- NOTE | 2021-07-20 22:36 | ECG_ITS ---
[facility] Test Date: 2021-07-21 Pat Name: Hussein Fitch Department: Room: 108 Gender: Male Ethnographer: : 1955 Requested By: Sang Mosley Order Number: [id number] Da Silva MD: Kashif Mejias M.D. Measurements Intervals [place] Rate: 109 P: 64 [place]: 176 QRS: 82 QRSD: 103 T: 49 QT: 322 QTc: 435 Interpretive Statements SINUS TACHYCARDIA MINIMAL ST DEPRESSION [0.025+ mV ST DEPRESSION] ABNORMAL RHYTHM ECG Compared to ECG 07/20/2021 19:16:30 No significant changes Electronically Signed On 07-21-2021 17:11:20 CDT by Kashif Mejias M.D. [id number]
[2021-07-21] VITALS (15 sets, daily range): BP systolic 121–167; BP diastolic 74–94; PULSE 92–117; RESP 16–22; TEMP 36.5–36.9; O2SAT 94–98
[2021-07-21 01:48] LABS: Troponin 5 6HR 249.8 ng/L (0-15); Troponin 5 6HR Delta 19.8 ng/L (0-12)
--- NOTE | 2021-07-21 02:06 | P.HP_ITS ---
Providers/Chief Complaint Admitting Physician: Johanne Wyman MD Primary Care Provider: Marti Pittman DO Chief Complaint: BP FLUCTUATING DRASTICALLY History of Present Illness Hussein Fitch is a 66 year old male with h/o Smoking, hypertension,With a past medical history of PAD status post femoropopliteal bypass, chronic anemia, followed by cardiology as outpatient for recent complaints of orthostatic hypotension, leg pain and numbness. His blood pressure was noted to be consistently systolic less than 90, lisinopril and metoprolol was held. He had also complained of chest pain radiating to left arm on a recent visit on 07/14, he was scheduled for a Lexiscan and echocardiogram as outpatient but this is not yet completed. It appears he was also on Eliquis which was stopped on 07/14 due to increased fall risk. He presented to the emergency room today with worsening dizziness. Patient states he was unable to walk even within the room without feeling lightheaded. He had to stop and rest and hold his head down several times today. Upon presentation to the ER his hemoglobin was noted to be at 5.9. Patient reports chronic diarrhea, states he has not noticed any recent change in stools. He is unable to tell me if stools have been melanotic, however FOB performed in the ER is positive. He also follows as an outpatient with hematology for known severe anemia, in the past has been as low as 5.4, causes thought to be iron deficiency. Per review of hematology notes, patient has a history of previous GI bleeding due to peptic ulcer disease. However as of 08/2020 exact cause was not able to be ascertained. He has had repeated GI endoscopies and a capsule endoscopy in 2013. His iron deficiency has failed to correct with oral iron supplementation. He is also on B12 replacement. Bone marrow biopsy in November 2020 was negative for myeloid neoplasms. Other notable work-up in the ER today shows an elevated troponin at 230. 2-hour delta at 9.4, 6-hour troponin pending at this time. Patient denies any current chest pain, palpitations or dyspnea while laying in bed.EKG shows normal sinus rhythm. CT head without acute events. Review of Systems General: Reports: 10 or more systems reviewed and unremarkable except in HPI and below Const: Denies: fever(s), chills or body aches Eyes: Denies: change in vision, blurry vision or photophobia ENMT: Reports: hoarseness; Denies: throat pain, enlarged tonsils, odynophagia or nasal congestion Card: Denies: chest pain, palpitations, irregular heart rhythm, edema, swelling of feet/ankles, lightheadedness, pre-syncope, dyspnea on exertion or orthopnea Resp: Denies: dyspnea, productive cough, non-productive cough, wheezing, stridor, pain on inspiration, change in phlegm color, hemoptysis or chest congestion GI: Denies: abdominal pain, nausea, vomiting, hematemesis, coffee ground emesis, dysphagia, heartburn, diarrhea, constipation, GI cramping, change in stool character, hematochezia or melena : Denies: flank pain, dysuria, urinary frequency, urinary urgency, urinary hesitancy or hematuria Musc: Denies: neck pain, back pain, extremity pain, joint swelling, joint warmth or deformity Neuro: Denies: headache(s), numbness in extremities, weakness in extremities, sensory changes, difficulty walking, frequent falls, dizziness, vertigo, behavioral changes, Slurred speech present or seizure-like activity Psych: Denies: anxiety, depression, suicidal ideation or homicidal ideation Endo: Denies: polyuria, polydipsia, tired all the time, cold intolerance or h ot flashes Fareed/Lymph: Denies: easy bruising or easy bleeding Medications/Allergies Home Medications Medication Instructions Recorded Confirmed Last Taken Type ascorbic acid (vitamin C) 500 mg 500 mg PO DAILY cap 12/11/19 07/20/21 07/20/21 History capsule cilostazol 100 mg tablet 100 mg PO BID 12/11/19 07/20/21 07/20/21 History ferrous sulfate 325 mg (65 mg 325 mg PO BID 12/11/19 07/20/21 07/20/21 History iron) tablet finasteride 5 mg tablet 5 mg PO DAILY tab 12/11/19 07/20/21 07/20/21 History gabapentin 300 mg capsule 300 mg PO TID 12/11/19 07/20/21 07/20/21 History metformin 850 mg tablet 850 mg PO TID 12/11/19 07/20/21 07/20/21 History omeprazole magnesium 10 mg oral 20 mg PO BID 12/11/19 07/20/21 07/20/21 History suspension,delayed release pravastatin 80 mg tablet 80 mg PO DAILY tab 12/11/19 07/20/21 07/20/21 History tamsulosin 0.4 mg capsule 0.8 mg PO BEDTIME cap 12/11/19 07/20/21 07/19/21 History aspirin [Aspir-81] 81 mg PO DAILY 06/29/21 07/20/21 07/20/21 History docusate sodium 100 mg PO BID PRN 06/29/21 07/20/21 07/20/21 History buspirone 15 mg tablet 30 mg PO BID #120 tab 07/17/21 07/20/21 07/20/21 Rx Remeron 15 mg PO BEDTIME 07/20/21 07/20/21 07/19/21 History aripiprazole 15 mg PO DAILY 07/20/21 07/20/21 07/20/21 History bupropion HCl 300 mg PO DAILY 07/20/21 07/20/21 07/20/21 History Allergies Allergy/AdvReac Type Severity Reaction Status Date / Time No Known Allergies Allergy Verified 07/14/21 14:05 PFSH Acute PFSH: Medical History BPH with obstruction/lower urinary tract symptoms COPD (chronic obstructive pulmonary disease) Diabetes Dyslipidemia Essential hypertension 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 Lower urinary tract symptoms (LUTS) Nicotine dependence, cigarettes, uncomplicated Peripheral arterial disease Polyuria Schizoaffective disorder, depressive type Surgical History H/O colonoscopy yrs ago H/O esophagogastroduodenoscopy H/O foot surgery S/P angioplasty Status post femoral-popliteal bypass surgery Family History Family/Other Stroke Cancer Diabetes Hypertension Denies family history of Anesthesia complication Bleeding disorder Social History Alcohol intake: never Household members: other Details: room mate Marital status: Current occupational status: disabled History of recent travel: No Current gender identity: Male Vitals/I&O/Wt Last Vital Signs Temp 97.9 F 07/20/21 20:25 Pulse 107 H 08/23/21 20:25 Resp 16 07/20/21 20:25 BP 152/69 07/20/21 18:21 Pulse Ox 100 07/20/21 18:21 07/20/21 07/20/21 07/21/21 14:59 22:59 06:59 Intake Total 0 / 0 Balance 0 / 0 Weight last 48 hrs Weight 61.689 kg Physical Exam Const: COMMON NORMALS: no acute distress, average body habitus, patient oriented x3, no limitations, healthy appearing, alert and well nourished HENMT: COMMON NORMALS: normocephalic and atraumatic HEAD & SCALP: normocephalic and atraumatic Eye: COMMON NORMALS: Equal, round and reactive pupils present, EOMs intact bilaterally, conjunctivae normal and no scleral icterus CONJUNCTIVA: Yes conjunctivae normal PUPIL: Yes Equal, round and reactive pupils present Neck/C-Spine: COMMON NORMALS: no JVD Resp: COMMON NORMALS: normal respiratory effort, No retractions, No use of accessory muscles, clear to auscultation bilaterally and percussion normal AUSCULTATION: clear to auscultation bilaterally PERCUSSION: percussion normal Cardio: COMMON NORMALS: no JVD, regular rate, regular rhythm, S1 normal heart sound present, S2 normal heart sound present, No gallops present (Cardio), No clicks present (Cardio), No murmurs present (Cardio), No rub (Cardio) and Peripheral pulses 2+ throughout RATE: regular rate RHYTHM: regular rhythm HEART SOUNDS: S1 normal heart sound present and S2 normal heart sound present PERIPHERAL PULSES: Peripheral pulses 2+ throughout GI: COMMON NORMALS: Normal to inspection, nondistended, normoactive bowel sounds present, Soft to palpation, non-tender, No hepatosplenomegaly present, no masses and no bruits PALPATION: Yes Soft to palpation and Yes No hepatosplenomegaly present Extremity: COMMON NORMALS: normal to inspection, full ROM, capillary refill normal, no joint enlargement, no clubbing, cyanosis or edema, no calf tenderness and no pedal edema Neuro: COMMON NORMALS: patient oriented x3, CN's II-XII intact bilaterally, moves all extremities, no focal motor deficits, no sensory deficits noted, deep tendon reflexes 2+ bilaterally and gait normal SENSORIUM/ORIENTATION: Yes alert Psych: COMMON NORMALS: mental status grossly normal, Normal thought process present, cooperative, normal affect, speech normal, activity/motor behavior normal, denies hallucinations, denies homicidal ideation and denies suicidal ideation SPEECH: Yes normal speech THOUGHT PROCESS: Normal thought process present Skin: COMMON NORMALS: no rashes or lesions noted, no wounds, turgor normal, no jaundice, no petechiae and no mottling GENERAL SKIN EXAM: no rashes or lesions noted and turgor normal Data : 07/20/21 17:20 07/20/21 17:20 A&P Assessment and plan (1) Anemia: Symptomatic anemia manifesting as dizziness, near syncope. Ordered for 2 units of blood transfusion in the ER, currently running Recheck hemoglobin after transfusion is completed Status: Acute (2) GI bleeding: Hemoccult positive in the ER. Protonix 40 mg IV every [address] Garrett consulted from ER. Recently taken off Eliquis as outpatient. Status: Acute (3) Elevated troponin: Elevated baseline troponin and 2-hour delta at 9.4. Received 325 mg of rectal aspirin in the ER. Hold off on further doses of aspirin and/or anticoagulation for now Suspect elevated troponin to be a result of demand supply mismatch, with ongoing GI bleed and symptomatic anemia hemoglobin 5.9, avoiding anticoagulants for now. Will await 6-hour troponin. EKG with sinus rhythm without acute ST-T changes, patient denies any current chest pain. Echocardiogram ordered. Continue statins Status: Acute Attestations Medical Necessity Statement*: Anticipate >2midnight admission for management of symptomatic anemia, GI beeding, possible ACS Coding Level of Care Code Acute [facility] for [facility] Fwd Diagnoses Anemia D64.9 GI bleeding K92.2 Elevated troponin R77.8
[2021-07-21] MEDS: pantoprazole 40 mg SDV IVP ×3 (03:41→20:45)
[2021-07-21 05:00] LABS: Basophils % 0.6 %; Eosinophils # 0.6 10^3/uL (0.0-0.8); Eosinophils % 8.7 %; Hematocrit 23.1 % (42.0-52.0); Hemoglobin 7.4 g/dL (11.7-16.6); Lymphocytes # 1.3 10^3/uL (0.8-4.8); Lymphocytes % 19.7 %; Mean Corpuscular Hemoglobin 28.7 pg (28.0-34.0); Mean Corpuscular Volume 89.5 fl (80-94); Mean Platelet Volume 8.9 fL (7.4-10.4); Monocytes # 0.5 10^3/uL (0.2-0.9); Monocytes % 7.1 %; Neutrophils # 4.29 10^3/uL (1.8-7.7); Neutrophils % 63.6 %; Nucleated Red Blood Cells % 0 %; Platelet Count 301 10^3/cmm (130-400); Red Blood Count 2.58 10^6/uL (4.1-5.3); Red Cell Distribution Width 15.4 % (12.1-15.1); White Blood Count 6.8 10^3/uL (4.0-10.0)
[2021-07-21 05:18] LABS: Alanine Aminotransferase 6 U/L (0-41); Albumin Level 3.3 g/dL (3.5-5.2); Alkaline Phosphatase 70 IU/L (40-130); Anion Gap 14.1 (5-19); Aspartate Amino Transferase 10 U/L (0-40); Blood Urea Nitrogen 19 mg/dL (8-23); Calcium 8.6 mg/dL (8.5-10.5); Carbon Dioxide 23 mmol/L (22-29); Chloride 103 mmol/L (98-107); Globulin 2.3 g/dL (1.3-4.6); Glomerular Filtration Rate 96.7 mL/min (90-130); Glucose 85 mg/dL (65-115); Osmolality Calculated 282 mOsm/kg (285-295); Potassium 5.1 mmol/L (3.5-5.1); Sodium 135 mmol/L (136-145); Total Bilirubin 0.3 mg/dL (0.15-1.2); Total Protein 5.6 g/dL (6.6-8.7)
--- NOTE | 2021-07-21 06:16 | PC.NURSE ---
Admit Note Patient admitted to [facility] from ED via Stretcher. Covering service notified. Patient presents with c/o syncope and mild chest pain relieved by rest. Orders reviewed & will continue to monitor. Patient and/or manufacturing sales representative oriented to environment, equipment, and informed of the following as found in the admission booklet: patient rights & responsibilities, visitor policy, hand and respiratory hygiene practice. Other education includes: reportable signs and symptoms, diet orders, and activity restrictions. Patient verbalized understanding of all teaching and instructions.
--- NOTE | 2021-07-21 06:22 | PC.NURSE ---
Shift Note Frequent safety and comfort rounds continue. Orders and/or nursing care completed as indicated. Patient monitored for response to intervention and treatment(s). Education provided includes telemetry and medications prescribed. Patient and/or herbicide service sales representative verbalized understanding of all teaching. Hourly rounding performed, all needs met. No further questions or concerns verbalized at this time.
[2021-07-21 06:37] LABS: Glucose Point of Care 90 mg/dL (70-110)
--- NOTE | 2021-07-21 07:23 | PM.CONSULT ---
Providers/Reason For Consult Consulting Physician/Specialty*: Consult to consider endoscopy Reason for Consult*: Acute on chronic anemia with occult positive stools Attending Physician: Joahnne Wyman MD Primary Care Provider: Marti Pittman DO History of Present Illness History of Present Illness Hussein Fitch is a 66 year old male with multiple comorbidities who presented to the emergency room yesterday because of presyncope and weakness. Also of note he had a recent visit to the ER because of chest pain and was scheduled for outpatient diagnostics, but those have not yet been completed. He states that he has been feeling lightheaded the same past several days. He reports that he has about 1 bowel movement a day. He states that it is diarrhea. He states that he has not noticed any blood or dark or tarry stools. He has recently been worked up by hematology for his anemia. He had both a colonoscopy and an EGD almost exactly a year ago in this facility by Dr. Rubin. Both procedures did not show a source for anemia. He has had multiple previous endoscopies by multiple different providers prior to that as well. He also had a capsule endoscopy done in 2013. Despite that, there is been no clear cause for his anemia noted. Review of Systems General: Reports: 10 or more systems reviewed and unremarkable except in HPI and below Const: Denies: fever(s) Eyes: Denies: change in vision or blurry vision ENMT: Denies: throat pain or nasal congestion Card: Reports: lightheadedness; Denies: chest pain (He did have chest pain at a recent ER visit but does not complain of chest ), palpitations or irregular heart rhythm Resp: Denies: dyspnea, productive cough, non-productive cough, wheezing or chest congestion GI: Reports: other (See history of present illness); Denies: abdominal pain or vomiting : Denies: flank pain Musc: Reports: back pain Neuro: Denies: headache(s) Psych: Denies: anxiety or depression Endo: Reports: tired all the time Fareed/Lymph: Reports: easy bruising All/Imm: Denies: urticaria or throat swelling Meds/Allergies Home Medications and Allergies Home Medications Medication Instructions Recorded Confirmed Last Taken Type ascorbic acid (vitamin C) 500 mg 500 mg PO DAILY cap 12/11/19 07/20/21 07/20/21 History capsule cilostazol 100 mg tablet 100 mg PO BID 12/11/19 07/20/21 07/20/21 History ferrous sulfate 325 mg (65 mg 325 mg PO BID 12/11/19 07/20/21 07/20/21 History iron) tablet finasteride 5 mg tablet 5 mg PO DAILY tab 12/11/19 07/20/21 07/20/21 History gabapentin 300 mg capsule 300 mg PO TID 12/11/19 07/20/21 07/20/21 History metformin 850 mg tablet 850 mg PO TID 12/11/19 07/20/21 07/20/21 History omeprazole magnesium 10 mg oral 20 mg PO BID 12/11/19 07/20/21 07/20/21 History suspension,delayed release pravastatin 80 mg tablet 80 mg PO DAILY tab 12/11/19 07/20/21 07/20/21 History tamsulosin 0.4 mg capsule 0.8 mg PO BEDTIME cap 12/11/19 07/20/21 07/19/21 History aspirin [Aspir-81] 81 mg PO DAILY 06/29/21 07/20/21 07/20/21 History docusate sodium 100 mg PO BID PRN 06/29/21 07/20/21 07/20/21 History buspirone 15 mg tablet 30 mg PO BID #120 tab 07/17/21 07/20/21 07/20/21 Rx Remeron 15 mg PO BEDTIME 07/20/21 07/20/21 07/19/21 History aripiprazole 15 mg PO DAILY 07/20/21 07/20/21 07/20/21 History bupropion HCl 300 mg PO DAILY 07/20/21 07/20/21 07/20/21 History Allergies Allergy/AdvReac Type Severity Reaction Status Date / Time No Known Allergies Allergy Verified 07/14/21 14:05 Current Medications Current Medications Generic Name Dose Route Start Last Admin Trade Name Freq PRN Reason Stop Dose Admin Insulin Aspart 0 unit 07/21/21 08:00 07/21/21 07:16 Insulin Aspart 100 Unit/1 Ml SUBCUT Not Given WM&BEDTIME CAMILO Protocol Pantoprazole Sodium 40 mg 07/20/21 21:45 07/21/21 03:41 Pantoprazole 40 Mg Sdv IVP 40 mg Q12H CAMILO Administration PFSH Acute PFSH: Medical History BPH with obstruction/lower urinary tract symptoms COPD (chronic obstructive pulmonary disease) Diabetes Dyslipidemia Essential hypertension 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 Lower urinary tract symptoms (LUTS) Nicotine dependence, cigarettes, uncomplicated Peripheral arterial disease Polyuria Schizoaffective disorder, depressive type Surgical History H/O colonoscopy yrs ago H/O esophagogastroduodenoscopy H/O foot surgery S/P angioplasty Status post femoral-popliteal bypass surgery Family History Family/Other Stroke Cancer Diabetes Hypertension Denies family history of Anesthesia complication Bleeding disorder Social History Alcohol intake: never Household members: other Details: room mate Marital status: Current occupational status: disabled History of recent travel: No Current gender identity: Male Vitals/I&O/Wt Last Vital Signs Temp 97.7 F 07/21/21 03:57 Pulse 112 H 07/21/21 05:17 Resp 18 07/21/21 03:57 BP 152/86 07/21/21 03:57 Pulse Ox 96 07/21/21 03:57 07/20/21 07/21/21 07/21/21 22:59 06:59 14:59 Intake Total 0 / 0 100 / 100 Output Total 600 / 600 Balance 0 / 0 -500 / -500 Weight last 48 hrs Weight 131 lb 11.2 oz Weight 136 lb Physical Exam Const: COMMON NORMALS: no acute distress and patient oriented x3 GENERAL APPEARANCE: cooperative, comfortable and frail appearing HENMT: COMMON NORMALS: normocephalic and moist oral mucous membranes HEAD & SCALP: normocephalic Chest: COMMONS NORMALS: normal inspection of the chest Resp: COMMON NORMALS: normal respiratory effort and clear to auscultation bilaterally AUSCULTATION: clear to auscultation bilaterally Cardio: COMMON NORMALS: regular rate, regular rhythm, No gallops present (Cardio), No murmurs present (Cardio) and No rub (Cardio) RATE: regular rate RHYTHM: regular rhythm GI: COMMON NORMALS: Normal to inspection, nondistended, normoactive bowel sounds present, Soft to palpation and non-tender PALPATION: Yes Soft to palpation Extremity: COMMON NORMALS: normal to inspection Neuro: COMMON NORMALS: patient oriented x3 and no focal motor deficits Skin: COMMON NORMALS: no rashes or lesions noted GENERAL SKIN EXAM: no rashes or lesions noted A&P Assessment and plan (1) Anemia: While the patient has a history of chronic anemia, he had a recent drop from a hemoglobin of 8.0 to 5.9 in 21 days. In the face of no obvious source of bleeding, and Hemoccult positive stool, we have to assume the anemia as result of GI blood loss until proven otherwise. He does have a long history of intermittent iron deficiency anemia and multiple endoscopies with the assumption of a GI bleed. So far, no definitive source of GI bleeding has been found. Regardless, given his recent acute drop in his hemoglobin, he would benefit from an EGD. Because he did have a normal colonoscopy a year ago, an inpatient colonoscopy is not indicated. He may benefit from a more extensive work-up once again on an outpatient basis once his hemoglobin levels have stabilized. An EGD is scheduled for 11:00 today. Status: Acute (2) Occult blood positive stool: Status: Acute Coding Level of Care Code Acute [facility] Diagnoses Anemia D64.9 Occult blood positive stool R19.5
[2021-07-21] MEDS: BuSPIRONE 10 mg Tablet 30 MG PO ×2 (08:15→19:12)
[2021-07-21] MEDS: ARIPiprazole 10 mg Tablet 15 MG PO (08:15)
[2021-07-21] MEDS: atorvastatin 40 mg Tablet 20 MG PO (08:15)
[2021-07-21] MEDS: gabapentin 300 mg Capsule PO ×3 (08:15→20:39)
[2021-07-21] MEDS: finasteride 5 mg Tablet PO (08:15)
[2021-07-21] MEDS: buPROPion XL (24 HR) 300 mg Tablet PO (08:18)
[2021-07-21 10:02] LABS: Hematocrit 25.3 % (42.0-52.0); Hemoglobin 8.3 g/dL (11.7-16.6)
[2021-07-21] MEDS: sodium chloride 0.9% 1,000 ML 30 ML IV (10:30)
--- NOTE | 2021-07-21 11:11 | P.CONIM_ITS ---
Providers/Reason For Consult Consulting Physician/Specialty*: Kashif Mejias MD/ Cardiology Reason for Consult*: Troponin elevation Requesting Physician: Dr Wyman Attending Physician: Ulises Cordoba MD Primary Care Provider: Marti Pittman DO History of Present Illness History of Present Illness 66 year old male with past medical history of hypertension, tobacco abuse, PAD with prior femoropopliteal bypass and a recent revascularization of the left right lower extremity who sees me in the office and had a recent office visit when he was having dizzy spells and low blood pressures. We had stopped his entry hypertensive medications and also Eliquis is secondary to increased fall risk. Patient also had orders for echo and Lexiscan as he was complaining of on and off chest discomfort episodes. He has will come to the hospital with increased dizziness and presyncopal episodes. Has not passed out. In the ER his hemoglobin was found to be 5.9. FOBT was positive. He had prior severe anemia and has followed with hematology and had multiple endoscopies done in the past. He does not have active chest pain at this time. However on and off he has felt chest discomfort symptoms. His EKG does not show ischemic changes. His initial troponin was 230 that trended up to 249. Review of Systems Const: Denies: fever(s) or chills ENMT: Denies: throat pain, nasal discharge or nasal congestion Card: Reports: chest pain (occ episodes), palpitations, irregular heart rhythm, lightheadedness, pre-syncope, dyspnea on exertion and leg pain with exertion; Denies: edema, swelling of feet/ankles, syncope or orthopnea Resp: Denies: productive cough or non-productive cough GI: Denies: nausea or vomiting Musc: Denies: neck pain, back pain or muscle cramps Neuro: Reports: numbness in extremities, weakness in extremities, difficulty walking and dizziness; Denies: headache(s) or frequent falls Psych: Denies: anxiety, depression, suicidal ideation or homicidal ideation Endo: Denies: polyuria or polydipsia Fareed/Lymph: Denies: easy bruising or easy bleeding All/Imm: Denies: urticaria, throat swelling or itchy eyes Meds/Allergies Home Medications and Allergies Home Medications Medication Instructions Recorded Confirmed Last Taken Type ascorbic acid (vitamin C) 500 mg 500 mg PO DAILY cap 12/11/19 07/20/21 07/20/21 History capsule cilostazol 100 mg tablet 100 mg PO BID 12/11/19 07/20/21 07/20/21 History ferrous sulfate 325 mg (65 mg 325 mg PO BID 12/11/19 07/20/21 07/20/21 History iron) tablet finasteride 5 mg tablet 5 mg PO DAILY tab 12/11/19 07/20/21 07/20/21 History gabapentin 300 mg capsule 300 mg PO TID 12/11/19 07/20/21 07/20/21 History metformin 850 mg tablet 850 mg PO TID 12/11/19 07/20/21 07/20/21 History omeprazole magnesium 10 mg oral 20 mg PO BID 12/11/19 07/20/21 07/20/21 History suspension,delayed release pravastatin 80 mg tablet 80 mg PO DAILY tab 12/11/19 07/20/21 07/20/21 History tamsulosin 0.4 mg capsule 0.8 mg PO BEDTIME cap 12/11/19 07/20/21 07/19/21 History aspirin [Aspir-81] 81 mg PO DAILY 06/29/21 07/20/21 07/20/21 History docusate sodium 100 mg PO BID PRN 06/29/21 07/20/21 07/20/21 History buspirone 15 mg tablet 30 mg PO BID #120 tab 07/17/21 07/20/21 07/20/21 Rx Remeron 15 mg PO BEDTIME 07/20/21 07/20/21 07/19/21 History aripiprazole 15 mg PO DAILY 07/20/21 07/20/21 07/20/21 History bupropion HCl 300 mg PO DAILY 07/20/21 07/20/21 07/20/21 History Allergies Allergy/AdvReac Type Severity Reaction Status Date / Time No Known Allergies Allergy Verified 07/14/21 14:05 Current Medications Current Medications Generic Name Dose Route Start Last Admin Trade Name Freq PRN Reason Stop Dose Admin Aripiprazole 15 mg 07/21/21 09:00 07/21/21 08:15 Aripiprazole 10 Mg Tablet PO 15 mg DAILY CAMILO Administration Atorvastatin Calcium 20 mg 07/21/21 09:00 07/21/21 08:15 Atorvastatin 40 Mg Tablet PO 20 mg DAILY CAMILO Administration Bupropion HCl 300 mg 07/21/21 09:00 07/21/21 08:18 Bupropion Xl (24 Hr) 300 Mg Tablet PO 300 mg DAILY CAMILO Administration Buspirone HCl 30 mg 07/21/21 09:00 07/21/21 08:15 Buspirone 10 Mg Tablet PO 30 mg BID CAMILO Administration Finasteride 5 mg 07/21/21 09:00 07/21/21 08:15 Finasteride 5 Mg Tablet PO 5 mg DAILY CAMILO Administration Gabapentin 300 mg 07/21/21 09:00 07/21/21 08:15 Gabapentin 300 Mg Capsule PO 300 mg TID CAMILO Administration Insulin Aspart 0 unit 07/21/21 08:00 07/21/21 07:16 Insulin Aspart 100 Unit/1 Ml SUBCUT Not Given WM&BEDTIME CAMILO Protocol Pantoprazole Sodium 40 mg 07/20/21 21:45 07/21/21 09:46 Pantoprazole 40 Mg Sdv IVP 40 mg Q12H CAMILO Administration PFSH Acute PFSH: Medical History BPH with obstruction/lower urinary tract symptoms COPD (chronic obstructive pulmonary disease) Diabetes Dyslipidemia Essential hypertension 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 Lower urinary tract symptoms (LUTS) Nicotine dependence, cigarettes, uncomplicated Peripheral arterial disease Polyuria Schizoaffective disorder, depressive type Surgical History H/O colonoscopy yrs ago H/O esophagogastroduodenoscopy H/O foot surgery S/P angioplasty Status post femoral-popliteal bypass surgery Family History Family/Other Stroke Cancer Diabetes Hypertension Denies family history of Anesthesia complication Bleeding disorder Social History Alcohol intake: never Household members: other Details: room mate Marital status: Current occupational status: disabled History of recent travel: No Current gender identity: Male Vitals/I&O/Wt Last Vital Signs Temp 98.4 F 07/21/21 10:50 Pulse 99 07/21/21 10:50 Resp 16 07/21/21 10:50 BP 151/94 07/21/21 10:50 Pulse Ox 96 07/21/21 10:50 07/20/21 07/21/21 07/21/21 22:59 06:59 14:59 Intake Total 0 / 0 100 / 100 Output Total 600 / 600 900 / 900 Balance 0 / 0 -500 / -500 -900 / -900 Weight last 48 hrs Weight 131 lb 11.2 oz Weight 136 lb Physical Exam Narrative: EXAM NARRATIVE: GENERAL: Patient is alert, awake and oriented x3. [] NECK: No jugular vein distension. [] HEENT: No cyanosis. No icterus. No pallor. [] HEART: Regular S1 and S2. No murmur, rub or gallop. [] LUNGS: Clear to auscultate bilaterally. [] ABDOMEN: Soft, nontender and nondistended. Positive bowel sounds. No guarding, rebound or tenderness. [] CENTRAL NERVOUS SYSTEM: Grossly nonfocal. [] EXTREMITIES: Lower extremities with no edema bilaterally. Pulses palpable in the lower extremities, both dorsalis pedis and posterior tibial. [] A&P Assessment and plan (1) Occult blood positive stool: Status: Acute (2) Anemia: Status: Acute (3) Elevated troponin: Status: Acute (4) Hypotension: Status: Acute (5) Tobacco abuse: Status: Acute (6) Peripheral arterial disease: Status: Acute (7) Diabetes: Status: Acute (8) Dyslipidemia: Status: Acute (9) Essential hypertension: Status: Acute (10) Chest pain: Status: Acute Patient was having on and off chest discomfort before presentation to the hospital. Can be assessed with a Lexiscan. It was ordered to be done as outpatient however patient has presented now to the hospital. Current troponin elevation appears secondary to demand ischemia in setting of severe anemia. Hold off on anticoagulation for now. Plan for EGD today. We will follow results for possible source of bleeding. Blood transfusion per primary team. Order echocardiogram. Thank you for involving us with care of this patient. We will continue to follow. Please call with questions. Coding Level of Care Code Acute Trend Investigator for [facility] Diagnoses Occult blood positive stool R19.5 Anemia D64.9 Elevated troponin R77.8 Hypotension I95.9 Tobacco abuse Z72.0 Peripheral arterial disease I73.9 Diabetes E11.9 Dyslipidemia E78.5 Essential hypertension I10 Chest pain R07.9
--- NOTE | 2021-07-21 11:16 | ANE.PACU2 ---
Documented by User: Wesley Haro CRNA 07/21/21 11:17 Inpatient post-anesthesia follow up: Airway intact: Yes Vital signs: Temperature 98.4 F Pulse Rate [Monito r] 101 Pulse Rate [Orthos tatic 103 Standing] Pulse Rate [Orthos tatic 92 Sitting] Pulse Rate [Orthos tatic Lying] 86 Pulse Rate 99 Respiratory Rate 16 Blood Pressure [Or thostatic 133/61 Standing Right Arm ] Blood Pressure [Or thostatic 140/60 Sitting Right Arm] Blood Pressure [Or thostatic 134/64 Lying Right Arm] Blood Pressure [Le ft Arm] 106/53 Blood Pressure 151/94 Pulse Oximetry 96 Oxygen Delivery Me thod Room Air Oxygen Flow Rate Fraction of Inspir ed Oxygen Hydration adequate: Yes Nausea and vomiting: No Pain level: 1 Mental status: Baseline
--- NOTE | 2021-07-21 11:40 | P.PN_ITS ---
Subjective Subjective: Interval history: Patient was seen this morning, he tells me that he is doing better, no chest pain, no shortness of breath, no lightheadedness, no bloody or black stools, no nausea, no vomiting, he is wondering when he can eat Vitals/I&O/Wt Last Vital Signs Temp 98.5 F 07/21/21 11:13 Pulse 108 H 07/21/21 11:13 Resp 16 07/21/21 11:13 BP 121/74 07/21/21 11:13 Pulse Ox 95 07/21/21 11:13 07/20/21 07/21/21 07/21/21 22:59 06:59 14:59 Intake Total 0 / 0 100 / 100 Output Total 600 / 600 900 / 900 Balance 0 / 0 -500 / -500 -900 / -900 Weight last 48 hrs Weight 59.738 kg Weight 61.689 kg Physical Exam Const: COMMON NORMALS: no acute distress and patient oriented x3 Neck/C-Spine: COMMON NORMALS: no JVD Resp: COMMON NORMALS: normal respiratory effort, No retractions, No use of accessory muscles and clear to auscultation bilaterally AUSCULTATION: clear to auscultation bilaterally Cardio: COMMON NORMALS: no JVD, regular rate, regular rhythm, S1 normal heart sound present and S2 normal heart sound present RATE: regular rate RHYTHM: regular rhythm HEART SOUNDS: S1 normal heart sound present and S2 normal heart sound present GI: COMMON NORMALS: Normal to inspection, nondistended, normoactive bowel sounds present, Soft to palpation and non-tender PALPATION: Yes Soft to palpation Extremity: COMMON NORMALS: no pedal edema Neuro: COMMON NORMALS: patient oriented x3 Psych: COMMON NORMALS: mental status grossly normal Data : 07/21/21 09:43 07/21/21 04:00 A&P Assessment and plan (1) Anemia: Status: Acute (2) GI bleeding: Status: Acute (3) Elevated troponin: Elevated baseline troponin and 2-hour delta at 9.4. Received 325 mg of rectal aspirin in the ER. Hold off on further doses of aspirin and/or anticoagulation for now Suspect elevated troponin to be a result of demand supply mismatch, with ongoing GI bleed and symptomatic anemia hemoglobin 5.9, avoiding anticoagulants for now. Will await 6-hour troponin. EKG with sinus rhythm without acute ST-T changes, patient denies any current chest pain. Echocardiogram ordered. Continue statins Status: Acute Additional A&P Information Acute on chronic anemia secondary to GI bleed -Has had an unremarkable colonoscopy in the last year -Has had an EGD with no significant findings -Has had a diagnosis of duodenal ulcers in the past -Has had a unremarkable capsule endoscopy -Has had a bone marrow biopsy without any significant findings except iron deficiency anemia -Managed by hematology oncology for iron deficiency anemia -Recently on Eliquis, for peripheral arterial disease, but stopped due to lightheadedness and dizziness -Hemoglobin 5.9 -Status post units PRBC, hemoglobin 8.3 -No hemodynamic compromise Plan: -Dr. Garrett on consult, will do an EGD -Continue Protonix, Carafate -Monitor for bloody or black stools -Monitor hemodynamics -SCDs for DVT prophylaxis -Anticoagulation contraindicated given anemia Elevated troponin, complaints of lightheadedness, chest pain -Baseline troponin to 30, 6-hour to 49.8, delta 19 -EKG no acute ST-T wave changes, sinus tachycardia -No complaints of chest pain -Had outpatient as complaints of chest pain, cardiac echo and stress test was ordered Plan: -Monitor for chest pain -Telemetry monitoring -Continue statin -Based on EGD as above, decide on anticoagulation, antiplatelet therapy -Cardiology on consult Attestations Medical Necessity Statement*: Patient requires hospitalization for acute on chronic anemia, elevated troponin, greater than 2 midnights Coding Level of Care Code Acute [employer] Communications Specialist for g Fwd Diagnoses Anemia D64.9 GI bleeding K92.2 Elevated troponin R77.8
[2021-07-21 12:16] LABS: Glucose Point of Care 95 mg/dL (70-110)
--- NOTE | 2021-07-21 12:42 | P.ANESASSM_ITS ---
Pre-Anesthetic Assessment Pre-Anesthetic Assessment: Height/Weight: Height 1.8 m Weight 59.738 kg Temp Pulse Resp BP Pulse Ox 97.8 F 97 17 149/85 96 07/21/21 12:10 07/21/21 12:10 07/21/21 12:10 07/21/21 12:10 07/21/21 12:10 Preop Diagnosis: Severe life style limiting claudication Proposed Procedure: Operation Date: 07/21/21 11:00 Proposed Procedures p EGD(Not Applicable) - Clark Garrett MD Was Beta Robert taken within 24 hours: N/A Was Clonidine taken within 24 hours: N/A Social: Social History: Tobacco and No alcohol Exam: Pre-Anes Outpt Exam: alert, oriented x 3 and regular rate & rhythm Airway: Submandibular: WNL Cervical ROM: WNL MP: 2 Dentition: False Pulmonary: Pulmonary: COPD CV/HEM: CV/HEM: Anemia and PVD GI: GI: GERD Metabolic: Metabolic: DM and Hyperlipidemia Neuropsych: Comments: schizoaffective Anesthetic Plan: ASA status: 3 Anesthesia: MAC Risk of > 500 ml blood loss (7ml/kg in children): No Meds/Allergies Current Medications: Current Medications Generic Name Dose Route Start Last Admin Trade Name Freq PRN Reason Stop Dose Admin Aripiprazole 15 mg 07/21/21 09:00 07/21/21 08:15 Aripiprazole 10 Mg Tablet PO 15 mg DAILY CAMILO Administration Atorvastatin Calci um 20 mg 07/21/21 09:00 07/21/21 08:15 Atorvastatin 40 Mg Tablet PO 20 mg DAILY CAMILO Administration Bupropion HCl 300 mg 07/21/21 09:00 07/21/21 08:18 Bupropion Xl (24 Hr) 300 Mg Tablet PO 300 mg DAILY CAMILO Administration Buspirone HCl 30 mg 07/21/21 09:00 07/21/21 08:15 Buspirone 10 Mg Tablet PO 30 mg BID CAMILO Administration Finasteride 5 mg 07/21/21 09:00 07/21/21 08:15 Finasteride 5 Mg Tablet PO 5 mg DAILY CAMILO Administration Gabapentin 300 mg 07/21/21 09:00 07/21/21 08:15 Gabapentin 300 M g Capsule PO 300 mg TID CAMILO Administration Insulin Aspart 0 unit 07/21/21 08:00 07/21/21 12:39 Insulin Aspart 1 00 Unit/1 Ml SUBCUT Not Given WM&BEDTIME CAMILO Protocol Pantoprazole Sodiu m 40 mg 07/20/21 21:45 07/21/21 09:46 Pantoprazole 40 Mg Sdv IVP 40 mg Q12H CAMILO Administration PFSH Anesthesia PFSH: Medical History BPH with obstruction/lower urinary tract symptoms COPD (chronic obstructive pulmonary disease) Diabetes Dyslipidemia Essential hypertension 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 Lower urinary tract symptoms (LUTS) Nicotine dependence, cigarettes, uncomplicated Peripheral arterial disease Polyuria Schizoaffective disorder, depressive type Surgical History H/O colonoscopy yrs ago H/O esophagogastroduodenoscopy H/O foot surgery S/P angioplasty Status post femoral-popliteal bypass surgery Family History Family/Other Stroke Cancer Diabetes Hypertension Denies family history of Anesthesia complication Bleeding disorder Social History Alcohol intake: never Household members: other Details: room mate Marital status: Current occupational status: disabled History of recent travel: No Current gender identity: Male Data Anesthesia CBC & Chem 7: 07/21/21 09:43 07/21/21 04:00 Other Labs: Laboratory Results - last 48 hr 07/20/21 07/20/21 07/20/21 16:49 17:20 17:20 WBC 6.7 RBC 2.12 L Hgb 5.9 L* Hct 19.2 L* MCV 90.6 MCH 27.8 L MCHC 30.7 RDW 16.0 H Plt Count 334 MPV 9.0 Neut % (Auto) 60.7 Lymph % (Auto) 23.0 [place] % (Auto) 7.5 Eos % (Auto) 8.0 Baso % (Auto) 0.3 Neut # (Auto) 4.04 Lymph # (Auto) 1.5 [place] # (Auto) 0.5 Eos # (Auto) 0.5 Baso # (Auto) 0.0 Nucleated RBC % (auto) 0 Nucleated RBCs # 0.0 Sodium 133 L Potassium 5.1 Chloride 99 Carbon Dioxide 23 Anion Gap 16.1 BUN 23 Creatinine 1.0 GFR Calculation 74.8 L Glucose 97 POC Glucose Calculated Osmolality 280 L Calcium 8.7 Total Bilirubin 0.2 AST 13 ALT 9 Alkaline Phosphatase 74 Creatine Kinase 77 Troponin T Baseline Troponin T 120 Minute Delta Troponin T Troponin T Hi Sens 6Hr Troponin T Hi Sens 6Hr Delta Total Protein 6.0 L Albumin 3.6 Globulin 2.4 Urine Color Yellow Urine Appearance Clear Urine pH 5 Ur Specific [place] 1.010 Urine Protein Trace Urine Glucose (UA) Norm Urine Ketones Negative Urine Blood Neg Urine Nitrate Negative Urine Bilirubin Neg Urine Urobilinogen Norm Ur Leukocyte Esterase Negative Urine RBC None Urine WBC 0-4 H Ur Squamous Epith Cells None Amorphous Sediment Not Reportable Urine Bacteria Trace Blood Type Rho(D) Type Antibody Screen Crossmatch 07/20/21 07/20/21 07/20/21 17:20 19:12 Unknown WBC RBC Hgb Hct MCV MCH MCHC RDW Plt Count MPV Neut % (Auto) Lymph % (Auto) [place] % (Auto) Eos % (Auto) Baso % (Auto) Neut # (Auto) Lymph # (Auto) [place] # (Auto) Eos # (Auto) Baso # (Auto) Nucleated RBC % (auto) Nucleated RBCs # Sodium Potassium Chloride Carbon Dioxide Anion Gap BUN Creatinine GFR Calculation Glucose POC Glucose Calculated Osmolality Calcium Total Bilirubin AST ALT Alkaline Phosphatase Creatine Kinase Troponin T Baseline 230 H* Troponin T 120 Minute 239.4 H Delta Troponin T 9.4 Troponin T Hi Sens 6Hr Troponin T Hi Sens 6Hr Delta Total Protein Albumin Globulin Urine Color Urine Appearance Urine pH Ur Specific [place] Urine Protein Urine Glucose (UA) Urine Ketones Urine Blood Urine Nitrate Urine Bilirubin Urine Urobilinogen Ur Leukocyte Esterase Urine RBC Urine WBC Ur Squamous Epith Cells Amorphous Sediment Urine Bacteria Blood Type A Positive Rho(D) Type Positive Antibody Screen Negative Crossmatch See Detail 07/21/21 07/21/21 07/21/21 01:10 04:00 04:00 WBC 6.8 RBC 2.58 L Hgb 7.4 L Hct 23.1 L MCV 89.5 MCH 28.7 MCHC 32.0 RDW 15.4 H Plt Count 301 MPV 8.9 Neut % (Auto) 63.6 Lymph % (Auto) 19.7 [place] % (Auto) 7.1 Eos % (Auto) 8.7 Baso % (Auto) 0.6 Neut # (Auto) 4.29 Lymph # (Auto) 1.3 [place] # (Auto) 0.5 Eos # (Auto) 0.6 Baso # (Auto) 0.0 Nucleated RBC % (auto) 0 Nucleated RBCs # 0.0 Sodium 135 L Potassium 5.1 Chloride 103 Carbon Dioxide 23 Anion Gap 14.1 BUN 19 Creatinine 0.8 GFR Calculation 96.7 Glucose 85 POC Glucose Calculated Osmolality 282 L Calcium 8.6 Total Bilirubin 0.3 AST 10 ALT 6 Alkaline Phosphatase 70 Creatine Kinase Troponin T Baseline Troponin T 120 Minute Delta Troponin T Troponin T Hi Sens 6Hr 249.8 H Troponin T Hi Sens 6Hr Delta 19.8 H* Total Protein 5.6 L Albumin 3.3 L Globulin 2.3 Urine Color Urine Appearance Urine pH Ur Specific [place] Urine Protein Urine Glucose (UA) Urine Ketones Urine Blood Urine Nitrate Urine Bilirubin Urine Urobilinogen Ur Leukocyte Esterase Urine RBC Urine WBC Ur Squamous Epith Cells Amorphous Sediment Urine Bacteria Blood Type Rho(D) Type Antibody Screen Crossmatch 07/21/21 07/21/21 07/21/21 06:26 09:43 12:02 WBC RBC Hgb 8.3 L Hct 25.3 L MCV MCH MCHC RDW Plt Count MPV Neut % (Auto) Lymph % (Auto) [place] % (Auto) Eos % (Auto) Baso % (Auto) Neut # (Auto) Lymph # (Auto) [place] # (Auto) Eos # (Auto) Baso # (Auto) Nucleated RBC % (auto) Nucleated RBCs # Sodium Potassium Chloride Carbon Dioxide Anion Gap BUN Creatinine GFR Calculation Glucose POC Glucose 90 95 Calculated Osmolality Calcium Total Bilirubin AST ALT Alkaline Phosphatase Creatine Kinase Troponin T Baseline Troponin T 120 Minute Delta Troponin T Troponin T Hi Sens 6Hr Troponin T Hi Sens 6Hr Delta Total Protein Albumin Globulin Urine Color Urine Appearance Urine pH Ur Specific [place] Urine Protein Urine Glucose (UA) Urine Ketones Urine Blood Urine Nitrate Urine Bilirubin Urine Urobilinogen Ur Leukocyte Esterase Urine RBC Urine WBC Ur Squamous Epith Cells Amorphous Sediment Urine Bacteria Blood Type Rho(D) Type Antibody Screen Crossmatch Cardiac Studies: No Data to Display
[2021-07-21 13:56] LABS: Hematocrit 25.2 % (42.0-52.0); Hemoglobin 8.1 g/dL (11.7-16.6); Mean Corpuscular HGB Conc 32.1 g/dL (30.0-36.0); Mean Corpuscular Volume 90.3 fl (80-94); Platelet Count 278 10^3/cmm (130-400); Red Blood Count 2.79 10^6/uL (4.1-5.3); Red Cell Distribution Width 15.2 % (12.1-15.1); Reticulocyte % 2.6 % (0.5-2.0); White Blood Count 5.6 10^3/uL (4.0-10.0)
[2021-07-21 14:19] LABS: Ferritin 22 ng/mL (30-400); Iron 76 ug/dL (59-158); Percent Saturation 27.1 % (20-50); Total Iron Binding Capacity 280 mcg/dl; Unsaturated Iron Binding 204 ug/dL (112-347)
[2021-07-21 15:05] LABS: Absolute Segmented Neutrophil 3.9 10/cmm (1.6-7.1); Band Neutrophils Absolute 0.3 10^3/cmm (0.0-1.2); Lymphocytes 14 %; Monocytes Absolute 0.3 10^3/cmm (0.1-0.6); Segmented Neutrophils 69 %; Total Cells Counted 100 (0-100)
[2021-07-21 15:06] LABS: Absolute Eosinophils 0.3 10^3/cmm (0.0-0.7); Absolute Neutrophil 4.2 10^3/cmm (1.4-6.5); Eosinophils 6 %; Hypochromasia Trace; Platelet Estimate Normal (Normal)
--- NOTE | 2021-07-21 15:33 | ANE.PACU2 ---
Inpatient post-anesthesia follow up: Airway intact: Yes Vital signs: Temperature 97.8 F Pulse Rate [Monito r] 101 Pulse Rate [Orthos tatic 103 Standing] Pulse Rate [Orthos tatic 92 Sitting] Pulse Rate [Orthos tatic Lying] 86 Pulse Rate 96 Respiratory Rate 18 Blood Pressure [Or thostatic 133/61 Standing Right Arm ] Blood Pressure [Or thostatic 140/60 Sitting Right Arm] Blood Pressure [Or thostatic 134/64 Lying Right Arm] Blood Pressure [Le ft Arm] 106/53 Blood Pressure 149/85 Pulse Oximetry 98 Oxygen Delivery Me thod Room Air Oxygen Flow Rate 4 Fraction of Inspir ed Oxygen Hydration adequate: Yes Nausea and vomiting: No Pain level: 1 Mental status: Baseline
[2021-07-21 16:48] LABS: Glucose Point of Care 160 mg/dL (70-110)
[2021-07-21 17:44] LABS: Hematocrit 25.7 % (42.0-52.0); Hemoglobin 8.2 g/dL (11.7-16.6)
--- NOTE | 2021-07-21 19:58 | PC.NURSE ---
Shift Note Frequent safety and comfort rounds continue. Orders and/or nursing care completed as indicated. Patient monitored for response to intervention and treatment(s). Education provided includes new medications and treatment goals. Patient and/or title insurance sales representative verbalized understanding. Will continue to monitor.
[2021-07-21 20:36] LABS: Hemoglobin 8.2 g/dL (11.7-16.6)
[2021-07-21] MEDS: sucralfate 1 gm Tablet PO (20:39)
[2021-07-21] MEDS: tamsulosin 0.4 mg Capsule 0.8 MG PO (20:39)
[2021-07-21] MEDS: mirtazapine 15 mg Tablet PO (20:39)
[2021-07-22] VITALS: BP 126/75; PULSE 95; RESP 18; TEMP 37.2; O2SAT 93
[2021-07-22 04:00] VITALS: BP 134/73; PULSE 90; RESP 16; O2SAT 96
[2021-07-22 04:45] LABS: Basophils # 0.1 10^3/uL (0.0-0.1); Basophils % 0.7 %; Eosinophils # 0.6 10^3/uL (0.0-0.8); Hematocrit 25.4 % (42.0-52.0); Hemoglobin 8.3 g/dL (11.7-16.6); Lymphocytes # 1.5 10^3/uL (0.8-4.8); Lymphocytes % 19.9 %; Mean Corpuscular HGB Conc 32.7 g/dL (30.0-36.0); Mean Corpuscular Hemoglobin 29.2 pg (28.0-34.0); Mean Corpuscular Volume 89.4 fl (80-94); Mean Platelet Volume 8.7 fL (7.4-10.4); Monocytes # 0.7 10^3/uL (0.2-0.9); Monocytes % 8.8 %; Neutrophils % 61.9 %; Nucleated Red Blood Cells % 0 %; Platelet Count 303 10^3/cmm (130-400); Red Blood Count 2.84 10^6/uL (4.1-5.3); Red Cell Distribution Width 15.7 % (12.1-15.1); White Blood Count 7.4 10^3/uL (4.0-10.0)
[2021-07-22 05:00] VITALS: PULSE 82
[2021-07-22 05:07] LABS: Alanine Aminotransferase 10 U/L (0-41); Albumin Level 3.2 g/dL (3.5-5.2); Alkaline Phosphatase 70 IU/L (40-130); Anion Gap 12.8 (5-19); Aspartate Amino Transferase 13 U/L (0-40); Blood Urea Nitrogen 17 mg/dL (8-23); Calcium 8.1 mg/dL (8.5-10.5); Carbon Dioxide 27 mmol/L (22-29); Chloride 102 mmol/L (98-107); Globulin 2.6 g/dL (1.3-4.6); Glomerular Filtration Rate 96.7 mL/min (90-130); Glucose 102 mg/dL (65-115); Magnesium 1.5 mg/dL (1.7-2.3); Osmolality Calculated 286 mOsm/kg (285-295); Potassium 4.8 mmol/L (3.5-5.1); Sodium 137 mmol/L (136-145); Total Bilirubin 0.2 mg/dL (0.15-1.2); Total Protein 5.8 g/dL (6.6-8.7)
[2021-07-22 05:29] LABS: Glucose Point of Care 72 mg/dL (70-110)
--- NOTE | 2021-07-22 06:00 | USCV_ITS ---
Hussein Fitch Age: 66 Gender: M : 1955 Exam Date: 07/22/2021 06:22 Ordering Phys: Johanne Wyman MD Technologist: Wendy Bello Exam Location: [facility] [place] Indication: NSTEMI BP: 134 / 73 HR: 99 Rhythm: Sinus Technical Quality: Adequate MEASUREMENTS (Male / Female) Normal Values 2D ECHO LV Diastolic Diameter PLAX 4.0 cm 4.2 - 5.9 / 3.9 - 5.3 cm LV Systolic Diameter PLAX 3.0 cm IVS Diastolic Thickness 1.6 cm 0.6 - 1.0 / 0.6 - 0.9 cm IVS Systolic Thickness 1.9 cm LVPW Diastolic Thickness 1.7 cm 0.6 - 1.0 / 0.6 - 0.9 cm LVPW Systolic Thickness 1.7 cm LVOT Diameter 2.0 cm LV Ejection Fraction 2D Teich 50.6 % LV Ejection Fraction MOD 2C 63.3 % LV Ejection Fraction 2C AL 64.9 % LA Diameter 3.1 cm LA Width 3.6 cm LA Height 3.5 cm RA Width 3.2 cm RA Height 3.9 cm Aorta at Sinotubular Diameter 2.8 cm M-MODE Aortic Annulus Diameter 3.1 cm LA Ao Ratio MM 1.2 MV E Point Septal Separation 1.1 cm DOPPLER AV Peak Velocity 119.0 cm/s LVOT Peak Velocity 103.0 cm/s AV Area Cont Eq vti 2.8 cm squared AV Area Cont Eq pk 2.7 cm squared MV Area PHT 5.9 cm squared Mitral E to A Ratio 2.7 MV E' Velocity 54.5 cm/s Mitral E to MV E' Ratio 43.1 Mitral E to LV E' Lateral Ratio 89.8 Mitral E to LV E' Septal Ratio 29.1 TR Peak Velocity 260.9 cm/s TR Peak Gradient 27.2 mmHg TR Mean Velocity 226.4 cm/s TR Mean Gradient 21.6 mmHg TR Velocity Time Integral 66.0 cm Right Atrial Pressure 3.0 mmHg Pulmonary Artery Systolic Pressu 30.2 mmHg PV Peak Velocity 106.0 cm/s RV Acceleration Time 0.1 s RV Ejection Time 0.3 s RV AcT/ET 0.4 FINDINGS Left Ventricle Somewhat dyskinetic basal and mid inferior wall segment and basal septal segments. LV ejection fraction around 45-50 %.Grade III/IV diastolic dysfunction (restrictive filling pattern), severely elevated filling pressures. Right Ventricle The right ventricle is normal in size and function. Right Atrium The right atrium is normal in size. Left Atrium The left atrium is normal in size. Mitral Valve Trace to mild mitral valve regurgitation. Aortic Valve No gross abnormalities noted Tricuspid Valve Trace tricuspid valve regurgitation. Pulmonic Valve Gross abnormalities noted Pericardium Normal pericardium without effusion. Aorta Normal ascending aorta dimension. CONCLUSIONS Normal LV size with a diminished ejection fraction of 45 to 50%. Wall motion abnormalities as mentioned above. Grade III/IV diastolic dysfunction (restrictive filling pattern), severely elevated filling pressures. Trace to mild mitral valve regurgitation. Trace tricuspid valve regurgitation. Estimated pulmonary artery peak systolic pressure of 30 mmHg There is no pericardial effusion. There are no intracardiac masses. No previous study is available for comparison. Dr Lila Marinelli MD FACC (Electronically Signed) Final Date: 22 July 2021 17:22 S
[2021-07-22 06:09] LABS: Absolute Eosinophils 0.8 10^3/cmm (0.0-0.7); Absolute Neutrophil 4.6 10^3/cmm (1.4-6.5); Absolute Segmented Neutrophil 4.6 10/cmm (1.6-7.1); Eosinophils 11 %; Hypochromasia 2+; Lymphocytes 20 %; Lymphocytes Absolute 1.8 10^3/cmm (1.2-3.4); Monocytes Absolute 0.2 10^3/cmm (0.1-0.6); Platelet Estimate Normal (Normal); Segmented Neutrophils 62 %; Total Cells Counted 100 (0-100)
[2021-07-22] MEDS: sucralfate 1 gm Tablet PO ×2 (06:52→12:02)
[2021-07-22 06:58] LABS: Glucose Point of Care 91 mg/dL (70-110)
[2021-07-22 08:00] VITALS: BP 156/82; PULSE 114; RESP 18; O2SAT 95
[2021-07-22] MEDS: finasteride 5 mg Tablet PO (08:38)
[2021-07-22] MEDS: ARIPiprazole 10 mg Tablet 15 MG PO (08:38)
[2021-07-22] MEDS: gabapentin 300 mg Capsule PO (08:39)
[2021-07-22] MEDS: buPROPion XL (24 HR) 300 mg Tablet PO (08:39)
[2021-07-22] MEDS: atorvastatin 40 mg Tablet 20 MG PO (08:39)
[2021-07-22] MEDS: BuSPIRONE 10 mg Tablet 30 MG PO (08:39)
--- NOTE | 2021-07-22 09:57 | PM.PN ---
Subjective Subjective: Interval history: Patient is doing well. His hemoglobin has stayed stable. EGD did not reveal any active bleeding. There was some gastritis. Vitals/I&O/Wt Last Vital Signs Temp 99.0 F 07/22/21 00:00 Pulse 82 07/22/21 05:00 Resp 16 07/22/21 04:00 BP 134/73 07/22/21 04:00 Pulse Ox 96 07/22/21 04:00 07/21/21 07/22/21 07/22/21 22:59 06:59 14:59 Intake Total 472 / 1009 300 / 1309 Output Total 120 / 1020 1200 / 2220 Balance 352 / -11 -900 / -911 Weight last 48 hrs Weight 131 lb 11.2 oz Weight 136 lb Physical Exam Narrative: EXAM NARRATIVE: GENERAL: Patient is alert, awake and oriented x3. [] NECK: No jugular vein distension. [] HEENT: No cyanosis. No icterus. No pallor. [] HEART: Regular S1 and S2. No murmur, rub or gallop. [] LUNGS: Clear to auscultate bilaterally. [] ABDOMEN: Soft, nontender and nondistended. Positive bowel sounds. No guarding, rebound or tenderness. [] CENTRAL NERVOUS SYSTEM: Grossly nonfocal. [] EXTREMITIES: Lower extremities with no edema bilaterally. Pulses palpable in the lower extremities, both dorsalis pedis and posterior tibial. [] Data : 07/22/21 04:26 07/22/21 04:26 A&P Assessment and plan (1) Anemia: Status: Resolved (2) Occult blood positive stool: Status: Resolved (3) Elevated troponin: Status: Resolved (4) Hypotension: Status: Resolved (5) Tobacco abuse: Status: Acute (6) Peripheral arterial disease: Status: Acute (7) Diabetes: Status: Acute (8) Dyslipidemia: Status: Acute (9) Essential hypertension: Status: Acute (10) Chest pain: Status: Resolved Patient was having on and off chest discomfort before presentation to the hospital. Can be assessed with a Lexiscan. Current troponin elevation appears secondary to demand ischemia in setting of severe anemia. Hold off on anticoagulation for now. Plan for EGD today. We will follow results for possible source of bleeding. Blood transfusion per primary team. Hgb is stable ECHO showed mildly reduced LV systolic function with EF of 45-50% Lexiscan as outpatient Thank you for involving us with care of this patient. Patient is stable to be discharged from cardiology standpoint. Please call with questions. Attestations Medical Necessity Statement*: Care expected to cross 2 midnights. Coding Level of Care Code Acute Employee Welfare Manager for Chg Fwd Diagnoses Anemia D64.9 Occult blood positive stool R19.5 Elevated troponin R77.8 Hypotension I95.9 Tobacco abuse Z72.0 Peripheral arterial disease I73.9 Diabetes E11.9 Dyslipidemia E78.5 Essential hypertension I10 Chest pain R07.9
--- NOTE | 2021-07-22 10:23 | PC.CHAP ---
Pastoral Care Encounter/Spiritual Assessment Type of Contact [] Declined stacker visit [] Patient/Family/Request visit [] Outpatient visit [] Follow-up visit [] Physician referral [] Code/Alert [x] Routine visit [] Staff referral [] Actively dying [] Patient sleeping [] Family support [] [] Out of room [] Palliative care [] [] Receiving care in room [] Pre-surgical visit [] Trauma [] Long length of stay [] ICU visit [] Other: Relational/Emotional Strength [x] Patient feels connected with others/family/visitors/staff [] Distress [] Loneliness/isolation [] Abandonment Spirituality of Patient [x] Person of Soni [x] Attends Judaism of their Soni [x] Believes in Prayer [] Reads Bible or Sikhism materials [] There are Spiritual issues to be addressed Product Applications Engineer Interventions [x] Prayer [x] Active listening [x] Non-anxious presence [x] Spiritual/emotional support [] Crisis/trauma care [] Spiritual counseling [] Bereavement support [] Provided bereavement packet [] Provided Bible/devotional materials [] Provided toy/stuffed animal, coloring book to patient or family member [] Provided Communion [] Anointing/[place] [] Salvation [x] Completed spiritual assessment [] Other: Impact on Illness or Injury [] Angry [] Fearful [] Anxious [] Often cries [] Exhaustion [] Unable to work [] Unable to attend holiness [] Unable to walk/stand [] Unable to read [] Unable to drive [] Unable to eat/drink [] Unable to sleep [] Unable to be with family [] Patient intubated [] Other: Summary Pt states he has been with his girlfirdavid for 43 years and their anniversary will be next week. She assisted him in raising his children. His family is taking turns in coming to see him in the hospital since there can only be one visitor per day. He is hoping to be released today or tomorrow. Has not yet seen doctor today so will know more once he sees the doctor. Time spent with patient 10m
[2021-07-22 11:09] VITALS: BP 130/70; PULSE 86; RESP 18; O2SAT 95
[2021-07-22 11:11] LABS: Glucose Point of Care 172 mg/dL (70-110)
--- NOTE | 2021-07-22 11:11 | PM.DCS ---
Discharge Providers Date of Admission: 07/21/21 01:17 Date of Discharge: July 22, 2021 Attending Provider at Admission: Johanne Wyman MD Attending Provider at Discharge: Ulises Cordoba MD Primary Care Provider: Marti Pittman DO Diagnoses at Discharge Discharge Diagnosis (1) Occult blood positive stool: Status: Acute (2) Anemia: Status: Acute (3) Elevated troponin: Status: Acute (4) Hypotension: Status: Acute (5) Tobacco abuse: Status: Acute (6) Peripheral arterial disease: Status: Acute (7) Diabetes: Status: Acute (8) Dyslipidemia: Status: Acute (9) Essential hypertension: Status: Acute (10) Chest pain: Status: Acute Reason for Visit Reason for Visit: BP FLUCTUATING DRASTICALLY Hospital Course Hospital Course This is a 66-year-old male with a past medical history of smoking, hypertension, femoropopliteal bypass, chronic anemia, who was admitted to [facility] lightheaded and dizziness Lightheadedness and dizziness likely secondary to acute on chronic anemia secondary to GI bleed -Has had an unremarkable colonoscopy in the last year -Has had an EGD with no significant findings -Has had a diagnosis of duodenal ulcers in the past -Capsule endoscopy had some abnormal findings, some sort of bleeding but patient failed to follow-up -Has had a bone marrow biopsy without any significant findings except iron deficiency anemia -Managed by hematology oncology for iron deficiency anemia -Recently on Eliquis, for peripheral arterial disease, but stopped due to lightheadedness and dizziness -Hemoglobin 5.9 on admission -Status post units PRBC, hemoglobin stable at 8.3 -EGD during this hospitalization no acute findings -I have discharged him on Protonix -Instructions to monitor for bloody or black stools or lightheadedness and dizziness -Repeat CBC in 1 week -Hold all blood thinners including aspirin,cilostazol -Follow-up with GI service in [place] Elevated troponin, complaints of lightheadedness, chest pain -Baseline troponin to 230, 6-hour to 249.8, delta 19 -EKG no acute ST-T wave changes, sinus tachycardia -No complaints of chest pain -Had outpatient as complaints of chest pain, cardiac echo and stress test was ordered -Cardiology was consulted -Cardiac echo showed normal EF, no significant wall motion abnormalities -No chest pain as inpatient -No acute telemetry events -Likely a component of elevated troponins is type II NSTEMI, supply demand ischemia from anemia as above -However cannot rule out underlying cardiac etiology, given elevated troponins, and chest pain, age of 66, smoking history -Nonetheless patient is to follow with cardiology within 7 to 10 days for decision to pursue stress testing -Unfortunately aspirin has to be held given that he roughly had a 2 unit blood loss on just aspirin -Continue statin -Nitro as needed for chest pain -Repeat hemoglobin in 1 week -If you were to have chest pain, lightheadedness go to emergency room Physical Exam Const: COMMON NORMALS: no acute distress and patient oriented x3 Resp: COMMON NORMALS: normal respiratory effort, No retractions, No use of accessory muscles and clear to auscultation bilaterally AUSCULTATION: clear to auscultation bilaterally Cardio: COMMON NORMALS: regular rate, regular rhythm, S1 normal heart sound present and S2 normal heart sound present RATE: regular rate RHYTHM: regular rhythm HEART SOUNDS: S1 normal heart sound present and S2 normal heart sound present GI: COMMON NORMALS: Normal to inspection, nondistended, normoactive bowel sounds present, Soft to palpation and non-tender PALPATION: Yes Soft to palpation Extremity: COMMON NORMALS: no pedal edema Neuro: COMMON NORMALS: patient oriented x3 Psych: COMMON NORMALS: mental status grossly normal Discharge Data Data Completed and Pending: Completed Studies During Hospitalization Category Date Time Status CT head wo con* 7 0450 Urgent Cat Scan 07/20/21 16:36 Completed XR chest 1V debo ble [id number] Stat Exams 07/20/21 16:36 Completed Pending at discharge Category Date Time Status Complete Blood Co unt w/Auto AM LABS Lab 07/23/21 04:00 Ordered Complete Blood Co unt w/Auto AM LABS Lab 07/24/21 04:00 Ordered Comprehensive Met abolic Panel AM LA BS Lab 07/23/21 04:00 Ordered Comprehensive Met abolic Panel AM LA BS Lab 07/24/21 04:00 Ordered Magnesium AM LABS Lab 07/23/21 04:00 Ordered Magnesium AM LABS Lab 07/24/21 04:00 Ordered Phosphorus AM LAB S Lab 07/23/21 04:00 Ordered Phosphorus AM LAB S Lab 07/24/21 04:00 Ordered Pathology: Surgic al [PTH] Routine Pth 07/21/21 11:16 Received CV. echo complete * [id number] Routine Ultrasound 07/22/21 06:00 Taken Labs from last 24 hours 07/22/21 07/22/21 07/22/21 11:08 06:51 04:26 WBC RBC Hgb Hct MCV MCH MCHC RDW Plt Count MPV Neut % (Auto) Lymph % (Auto) [place] % (Auto) Eos % (Auto) Baso % (Auto) Reticulocyte % (Au to) Neut # (Auto) Lymph # (Auto) [place] # (Auto) Eos # (Auto) Baso # (Auto) Nucleated RBC % (a uto) Total Counted Atypical Lymphs % Absolute Neutrophi ls Segmented Neutroph ils Abs Segm Neuts (Ma n) Band Neutrophils Abs Band Neuts (Ma n) Absolute Lymphocyt es Lymphocytes (Manua l) Monocytes (Manual) Absolute Monocytes Eosinophils (Manua l) Absolute Eosinophi ls Basophils (Manual) Absolute Basophils Nucleated RBCs # Platelet Estimate Hypochromasia Haptoglobin Sodium 137 Potassium 4.8 Chloride 102 Carbon Dioxide 27 Anion Gap 12.8 BUN 17 Creatinine 0.8 GFR Calculation 96.7 Glucose 102 POC Glucose Pending 91 Calculated Osmolal ity 286 Calcium 8.1 L Phosphorus 4.0 Magnesium 1.5 L Iron TIBC % Saturation Unsat Iron Binding Ferritin Total Bilirubin 0.2 AST 13 ALT 10 Alkaline Phosphata se 70 Total Protein 5.8 L Albumin 3.2 L Globulin 2.6 07/22/21 07/21/21 07/21/21 04:26 20:37 20:30 WBC 7.4 RBC 2.84 L Hgb 8.3 L 8.2 L Hct 25.4 L 25.0 L MCV 89.4 MCH 29.2 MCHC 32.7 RDW 15.7 H Plt Count 303 MPV 8.7 Neut % (Auto) 61.9 Lymph % (Auto) 19.9 [place] % (Auto) 8.8 Eos % (Auto) 8.0 Baso % (Auto) 0.7 Reticulocyte % (Au to) Neut # (Auto) 4.60 Lymph # (Auto) 1.5 [place] # (Auto) 0.7 Eos # (Auto) 0.6 Baso # (Auto) 0.1 Nucleated RBC % (a uto) 0 Total Counted 100 Atypical Lymphs % 4.0 Absolute Neutrophi ls 4.6 Segmented Neutroph ils 62 Abs Segm Neuts (Ma n) 4.6 Band Neutrophils 0.0 Abs Band Neuts (Ma n) 0.0 Absolute Lymphocyt es 1.8 Lymphocytes (Manua l) 20 Monocytes (Manual) 3.0 Absolute Monocytes 0.2 Eosinophils (Manua l) 11 Absolute Eosinophi ls 0.8 H Basophils (Manual) 0.0 Absolute Basophils 0.0 Nucleated RBCs # 0.0 Platelet Estimate Normal Hypochromasia 2+ H Haptoglobin Sodium Potassium Chloride Carbon Dioxide Anion Gap BUN Creatinine GFR Calculation Glucose POC Glucose 72 Calculated Osmolal ity Calcium Phosphorus Magnesium Iron TIBC % Saturation Unsat Iron Binding Ferritin Total Bilirubin AST ALT Alkaline Phosphata se Total Protein Albumin Globulin 07/21/21 07/21/21 07/21/21 17:20 16:42 13:44 WBC RBC Hgb 8.2 L Hct 25.7 L MCV MCH MCHC RDW Plt Count MPV Neut % (Auto) Lymph % (Auto) [place] % (Auto) Eos % (Auto) Baso % (Auto) Reticulocyte % (Au to) Neut # (Auto) Lymph # (Auto) [place] # (Auto) Eos # (Auto) Baso # (Auto) Nucleated RBC % (a uto) Total Counted Atypical Lymphs % Absolute Neutrophi ls Segmented Neutroph ils Abs Segm Neuts (Ma n) Band Neutrophils Abs Band Neuts (Ma n) Absolute Lymphocyt es Lymphocytes (Manua l) Monocytes (Manual) Absolute Monocytes Eosinophils (Manua l) Absolute Eosinophi ls Basophils (Manual) Absolute Basophils Nucleated RBCs # Platelet Estimate Hypochromasia Haptoglobin 205.0 H Sodium Potassium Chloride Carbon Dioxide Anion Gap BUN Creatinine GFR Calculation Glucose POC Glucose 160 H Calculated Osmolal ity Calcium Phosphorus Magnesium Iron 76 TIBC 280 % Saturation 27.1 Unsat Iron Binding 204 Ferritin 22 L Total Bilirubin AST ALT Alkaline Phosphata se Total Protein Albumin Globulin 07/21/21 07/21/21 13:44 12:02 WBC 5.6 RBC 2.79 L Hgb 8.1 L Hct 25.2 L MCV 90.3 MCH 29.0 MCHC 32.1 RDW 15.2 H Plt Count 278 MPV 9.0 Neut % (Auto) Lymph % (Auto) [place] % (Auto) Eos % (Auto) Baso % (Auto) Reticulocyte % (Au to) 2.6 H Neut # (Auto) Lymph # (Auto) [place] # (Auto) Eos # (Auto) Baso # (Auto) Nucleated RBC % (a uto) Total Counted 100 Atypical Lymphs % Not Reportable Absolute Neutrophi ls 4.2 Segmented Neutroph ils 69 Abs Segm Neuts (Ma n) 3.9 Band Neutrophils 6.0 Abs Band Neuts (Ma n) 0.3 Absolute Lymphocyt es Lymphocytes (Manua l) 14 Monocytes (Manual) 5.0 Absolute Monocytes 0.3 Eosinophils (Manua l) 6 Absolute Eosinophi ls 0.3 Basophils (Manual) Not Reportable Absolute Basophils Nucleated RBCs # Platelet Estimate Normal Hypochromasia Trace Haptoglobin Sodium Potassium Chloride Carbon Dioxide Anion Gap BUN Creatinine GFR Calculation Glucose POC Glucose 95 Calculated Osmolal ity Calcium Phosphorus Magnesium Iron TIBC % Saturation Unsat Iron Binding Ferritin Total Bilirubin AST ALT Alkaline Phosphata se Total Protein Albumin Globulin Vitals: Last Vital Signs Temp 99.0 F 07/22/21 00:00 Pulse 82 07/22/21 05:00 Resp 16 07/22/21 04:00 BP 134/73 07/22/21 04:00 Pulse Ox 96 07/22/21 04:00 Discharge Plan Discharge Patient Disposition: Home Condition: Stable Prescriptions: New nitroglycerin 0.4 mg tablet, sublingual 0.4 mg sublingual Q5M PRN (Reason: chest pain) 30 Days Qty: 30 RF: 0 Continued buspirone 15 mg tablet 30 mg PO BID Qty: 120 RF: 4 gabapentin 300 mg capsule 300 mg PO TID RF: 0 tamsulosin 0.4 mg capsule 0.8 mg PO BEDTIME RF: 0 ascorbic acid (vitamin C) 500 mg capsule 500 mg PO DAILY RF: 0 ferrous sulfate 325 mg (65 mg iron) tablet 325 mg PO BID RF: 0 metformin 850 mg tablet 850 mg PO TID RF: 0 Hold Instructions: Resume on 04/17/21. pravastatin 80 mg tablet 80 mg PO DAILY RF: 0 finasteride 5 mg tablet 5 mg PO DAILY RF: 0 Prilosec 10 mg susp,delayed release for recon 20 mg PO BID RF: 0 docusate sodium 100 mg Tablet 100 mg PO BID PRN (Reason: Constipation) RF: 0 Remeron 15 mg tablet 15 mg PO BEDTIME RF: 0 aripiprazole 15 mg tablet 15 mg PO DAILY RF: 0 bupropion HCl 300 mg tablet extended release 24 hr 300 mg PO DAILY RF: 0 Held cilostazol 100 mg tablet 100 mg PO BID RF: 0 Hold Instructions: Resume on 08/06/21. hold until you see cardiology aspirin [Aspir-81] 81 mg Tablet,Delayed Release (Dr/Ec) 81 mg PO DAILY RF: 0 Hold Instructions: Resume on 08/06/21. hold until you see cardiology Discharge Orders: Discharge Order (Routine); Ordered 07/22/21 Ordered By: Ulises Cordoba Referrals: Marti Pittman DO [Primary Care Provider] - 1 week Kashif Mejias M.D [Physician] - 7-10 days Jan Mehta MD [Hospitalist] - 1 week (anemia) Discharge Diet: Cardiac Discharge Activity: Resume usual activity Patient Instructions: GI Discharge Instructions, Opioid Safety Activity Restrictions/Additional Instructions: -Follow-up with GI service in [place] -Please hold aspirin, cilostazol -Please avoid blood thinners for now -If you have bloody or black stools or feel lightheaded or dizzy go back to the emergency room -Follow-up with primary care provider for recheck CBC in 1 week -Follow-up with cardiology in 7 to 10 days -Follow-up with cardiology, with repeat CBC -If you have chest pain please use nitro for chest pain and go to the emergency room -Follow with cardiology for decision to pursue stress testing Discharge Attestations Time Spent in Discharge Care*: less than 30 min Quality Metrics Clinical Quality Measures During this hospital stay, did patient experience: None Coding Level of Care Code Acute Chg FW DC note Diagnoses Occult blood positive stool R19.5 Anemia D64.9 Elevated troponin R77.8 Hypotension I95.9 Tobacco abuse Z72.0 Peripheral arterial disease I73.9 Diabetes E11.9 Dyslipidemia E78.5 Essential hypertension I10 Chest pain R07.9
[2021-07-22] MEDS: pantoprazole 40 mg SDV IVP (12:01)
[2021-07-22 12:29] VITALS: BP 130/70; PULSE 86; RESP 18; O2SAT 95
--- NOTE | 2021-07-22 12:59 | PC.NURSE ---
Discharge Note Patient discharged to Home via private vehicle accompanied by family. 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 Mobile pharmacy medications and/or prescriptions provided. Belongings/home medications returned.
--- NOTE | 2021-07-22 17:02 | PC.RESP ---
PULMONARY REHAB INFORMATION SENT TO PATIENT.
== END 2021-07-22 13:00 | disposition home or self-care (01) | DRG 811 ==
LOC: ER 21:19 → CSU 07-21 01:18
PROVIDERS: Family Medicine; Physician Assistant; Admitting Provider Student in an Organized Health Care Education/Training Program; Emergency Provider Physician Assistant; PCP Internal Medicine; Visit Provider Family Medicine
PROC: 0DJ08ZZ Inspection of Upper Intestinal Tract, Via Natural or Artificial Opening Endoscopic (ICD-10-PCS; CPT 43235; principal; 2021-07-21 11:00)
DX: D50.0 Iron deficiency anemia secondary to blood loss (chronic) (principal); I21.A1 Myocardial infarction type 2; K92.2 Gastrointestinal hemorrhage, unspecified; I10 Essential (primary) hypertension; E11.51 Type 2 diabetes mellitus with diabetic peripheral angiopathy without gangrene; R19.5 Other fecal abnormalities; N40.1 Benign prostatic hyperplasia with lower urinary tract symptoms; J44.9 Chronic obstructive pulmonary disease, unspecified; E78.5 Hyperlipidemia, unspecified; F25.1 Schizoaffective disorder, depressive type; Z86.718 Personal history of other venous thrombosis and embolism; Z79.82 Long term (current) use of aspirin; Z79.84 Long term (current) use of oral hypoglycemic drugs; Z95.820 Peripheral vascular angioplasty status with implants and grafts; Z87.891 Personal history of nicotine dependence
CPT/HCPCS: 12345; 36415; 36416; 36430; 43239; 70450; 71045; 80053; 81001; 82550; 82728; 82962; 83010; 83540; 83550; 83735; 84100; 84484; 85007; 85014; 85018; 85025; 85027; 85045; 86850; 86900; 86920; 88305; 93005; 93306; 96372; 96374; 99285; C9113; J1815; J2704; J7030; P9016

== ENCOUNTER → 2021-07-24 12:35 | Outpatient (BNVA) | payer MEDICARE, MEDICAID, SELFPAY | PROVIDERS: PCP Internal Medicine; Visit Provider Internal Medicine | DX: I73.9 Peripheral vascular disease, unspecified (principal); R07.9 Chest pain, unspecified | CPT/HCPCS: 80048; 85025 ==

== ENCOUNTER → 2021-07-29 08:45 | Outpatient (BNVA) | payer MEDICARE, MEDICAID, SELFPAY | PROVIDERS: PCP Internal Medicine; Visit Provider Social Worker Clinical | DX: F25.1 Schizoaffective disorder, depressive type (principal) | CPT/HCPCS: 90834 ==

== ENCOUNTER 2021-07-30 11:41 | Outpatient (CLI) | payer MEDICARE, MEDICAID, SELFPAY ==
[2021-07-30 14:01] LABS: Basophils # 0.1 10^3/uL (0.0-0.1); Basophils % 0.8 %; Eosinophils # 0.6 10^3/uL (0.0-0.8); Eosinophils % 8.2 %; Hematocrit 28.3 % (42.0-52.0); Hemoglobin 8.9 g/dL (11.7-16.6); Lymphocytes # 1.2 10^3/uL (0.8-4.8); Lymphocytes % 15.1 %; Mean Corpuscular HGB Conc 31.4 g/dL (30.0-36.0); Mean Corpuscular Hemoglobin 29.1 pg (28.0-34.0); Mean Corpuscular Volume 92.5 fl (80-94); Mean Platelet Volume 9.5 fL (7.4-10.4); Monocytes # 0.5 10^3/uL (0.2-0.9); Monocytes % 5.8 %; Neutrophils # 5.38 10^3/uL (1.8-7.7); Neutrophils % 69.8 %; Nucleated Red Blood Cells % 0 %; Platelet Count 365 10^3/cmm (130-400); Red Blood Count 3.06 10^6/uL (4.1-5.3); Red Cell Distribution Width 15.1 % (12.1-15.1); Reticulocyte % 1.4 % (0.5-2.0); White Blood Count 7.7 10^3/uL (4.0-10.0)
[2021-07-30 14:41] LABS: Alanine Aminotransferase 15 U/L (0-41); Albumin Level 3.9 g/dL (3.5-5.2); Alkaline Phosphatase 99 IU/L (40-130); Anion Gap 14.9 (5-19); Aspartate Amino Transferase 15 U/L (0-40); Blood Urea Nitrogen 16 mg/dL (8-23); Calcium 8.8 mg/dL (8.5-10.5); Carbon Dioxide 27 mmol/L (22-29); Chloride 97 mmol/L (98-107); Ferritin 31 ng/mL (30-400); Globulin 3.2 g/dL (1.3-4.6); Glomerular Filtration Rate 74.8 mL/min (90-130); Glucose 70 mg/dL (65-115); Iron 19 ug/dL (59-158); Lactate Dehydrogenase 161 U/L (135-225); Osmolality Calculated 278 mOsm/kg (285-295); Percent Saturation 5.3 % (20-50); Potassium 4.9 mmol/L (3.5-5.1); Sodium 134 mmol/L (136-145); Total Bilirubin 0.2 mg/dL (0.15-1.2); Total Iron Binding Capacity 354 mcg/dl; Total Protein 7.1 g/dL (6.6-8.7); Unsaturated Iron Binding 335 ug/dL (112-347)
[2021-07-30 15:34] LABS: Erythrocyte Sedimentation Rate 60 mm/hr (0-10)
--- NOTE | 2021-08-02 13:12 | ONC FU_ITS ---
Dr. Mehta Patient Follow-Up Note Patient: Hussein Fitch Unit #: [id number]: 1955 Dicatated By: Jan Mehta M.D.Date of Visit:Jul 30, 2021 Onc Med Follow-up/Prog Note Chief Complaint: Anemia. History of Present Illness: This is a 66 year-old man with anemia, at least some complement of which has been due to iron deficiency. In May 2013 he was admitted to the hospital with severe anemia, hemoglobin at 5.4 g with hematocrit 15.6%. The red cell indices were in the upper normal range. The white blood cell count was normal at 6900, and the platelet count was normal at 280,000. The uncorrected reticulocyte count was 7.7%. B12 and folate levels were normal. The serum iron was normal at 101 mcg/dL with transferrin saturation 24.9%. He was transfused a total of 4 units of packed red blood cells. He did undergo upper and lower GI endoscopy. The only abnormal finding was mild gastritis. He apparently had a previous history of GI bleeding due to peptic ulcer disease. Despite the negative endoscopy findings, the clinical picture appeared to be most consistent with acute GI blood loss. However, he also had undergone a left femoropopliteal bypass procedure a little over a month prior to that admission. I had seen him initially in June 2013. At that point his transferrin saturation was low at 11.4%, and I did opt to have him start parenteral iron replacement with Venofer, though his hemoglobin was just mildly decreased at 11.9 g. He did have 3/3 stools come back heme-positive. On 08/27/2019 his hemoglobin had dropped back down to 5.4 g, and he was again transfused PRBC. He required further transfusions in December 2013, and January 2014 he was again given parenteral iron replacement with Venofer. In May 2014 he underwent redo left femoropopliteal bypass. In September 2014 he was admitted to the hospital again with severe anemia, hemoglobin 4.5 g. That episode occurred while on warfarin with supratherapeutic INR. His laboratory studies from 07/23/2019 showed recurrence of anemia with hemoglobin 8.8 g and hematocrit 26.8%. The red cell indices were in the low normal range. His serum iron studies showed transferrin saturation low at 8%. He also had a low B12 level at 173 pg/mL. He began B12 replacement. His stool hemoccult on 08/01/2019 was reported to be positive. He had undergone repeat EGD and colonoscopy by Dr. Garrett. The EGD showed mild gastritis. There were no abnormalities noted on the colonoscopy. There was no source of GI blood loss identified. I had seen him for a follow-up visit on 08/13/2019. His hemoglobin was down slightly but adequate at 10.0 g. His transferrin saturation was low at 5.8% with ferritin 17.0 ng/mL, consistent with iron deficiency. He was then given parenteral iron replacement with 2 infusions of Injectafer. A follow-up CBC on 10/02/2019 was unchanged with hemoglobin 10.2 g, white blood cell count 6500, and platelet count 287,000. His transferrin saturation, though, had increased to 28.9% and his ferritin had increased to 356 ng/mL. As of his follow-up visit in November 2019 he remained mildly anemic, hemoglobin 10.5 g, but with normal transferrin saturation at 31%. His repeat laboratory studies on 07/03/2020 showed stable hemoglobin at 10.3 g, but his serum iron studies show low transferrin saturation of 13%, consistent with iron deficiency. His ferritin was in the low normal range. As such, he was given additional parenteral iron replacement with 2 infusions of Injectafer. He was then seen for a follow-up visit on 08/18/2020. He was still moderately anemic, hemoglobin 9.6 g. His serum iron studies showed normal transferrin saturation of 42.4%, so that the anemia did not appear to be due to iron deficiency. His bone marrow aspiration/biopsy on 12/04/2020 showed normal cellularity estimated at 20 to 40%. There were no overt dysplastic or megaloblastic changes, and there was no evidence of an infiltrative process. There was adequate storage iron present. The FISH panel for MDS was unrevealing. Overall, the marrow showed no diagnostic abnormality. His other medical illnesses include hypertension, dyslipidemia, type 2 diabetes, peripheral arterial disease, and COPD. He has had multiple surgeries on his right arm due to an MRSA infection. He also had 2 surgeries on his right foot. He underwent left fempop bypass in March 2013 and redo left fempop bypass in May 2014. He also had a previous angioplasty/stent procedure to the right leg. His prior GI evaluations included EGD and colonoscopy in May 2013, capsule endoscopy in April 2014, and EGD in October 2016. He has a history of smoking for close to 50 years, and he continues to smoke 1 pack of cigarettes daily. INTERIM HISTORY: On 07/21/2021 he was admitted to the hospital after presenting to the emergency room with lightheadedness. He was severely anemic, hemoglobin 5.9 g and hematocrit 19.2%. The red cell indices were normal. The white blood cell count was 6700 and the platelet count was 334,000. His serum iron studies showed no normal transferrin saturation at 27%, but the ferritin was low at 22 ng/mL, suggestive of iron deficiency. His EGD showed a moderate hiatal hernia with mild diffuse gastritis. There was no obvious source for GI blood loss. He was transfused PRBC. He had been on anticoagulation with apixaban, and that was stopped. His repeat CBC at discharge showed hemoglobin up to 8.7 g. He is seen now for a follow-up visit. He has still been feeling dizzy at times. He says his energy is pretty good now. He is able to do light work at home. His appetite has been okay, but he has continued to lose weight. By our scale he is down 12 pounds since August 2020. He has not had fever. He has been having sweating almost every night. He has not had sore mouth or throat. He does not complain of cough and he has not been having shortness of breath. He has chest pain occasionally. He takes nitroglycerin as needed. He says he has diarrhea most of the time. Indicates that his stool did test positive for blood. He has no complaints. He has no significant joint or bone pain. He does not complain of headache. He has no numbness/paresthesia or other focal neurologic symptoms. Medications: Abilify 1 Tablet (of 5 mg) Oral daily, busPIRone HCl 1 Tablet (of 15 mg) Oral daily, Colace 1 Capsule (of 100 mg) Oral b.i.d., Ferrous Sulfate 1 Tablet (of 325 (65 fe) mg) Oral q on Every Other Day, Gabapentin 1 Capsule (of 300 mg) Oral t.i.d., glipiZIDE XL 1 Tablet (of 2.5 mg) Tablet SR 24 HR Oral daily, metFORMIN HCl 1 Tablet (of 850 mg) Oral daily, Potassium Chloride ER 1 Tablet (of 20 meq) Tablet, controlled release Oral b.i.d., Pravastatin Sodium 1 (80 mg) Tablet Oral at bedtime, PriLOSEC OTC 1 Tablet (of 20 mg) Tablet, enteric coated Oral daily, Sildenafil Citrate 1 Tablet (of 50 mg) Oral PRN, Vitamin C 1 Capsule (of 500 mg) Oral daily Allergies: No Known Allergies. Vital Signs: Performed on Jul 30, 2021 14:35 Height - 71.00 in Weight - 133 lbs (LOW) BSA - 1.77 sq.m BMI - 18.55 Temperature - 98.1 F (LOW) Pulse - 96 /min Respiration - 18 /min BP - 114/60 mm(hg) O2 Sat - 99 % Pain - 0 Fatigue - 0 Physical Examination: Constitutional - He appears chronically ill, Eyes - Sclerae nonicteric. Conjunctivae clear, ENMT - No lesions noted in the oral cavity, Hematologic/Lymphatic - No cervical, clavicular or axillary adenopathy, Respiratory - Lungs sound clear with some decrease in air movement bilaterally, Cardiovascular - Heart rhythm is regular. There is a II/ systolic murmur. There is no gallop or rub noted, Abdomen - Soft. Liver and spleen are not enlarged. There is no abdominal mass or ascites noted and no inguinal adenopathy, Extremities - No edema. There are purpuric lesions on both arms, Neurologic - No focal neurologic deficits noted. Problem List: 1. Patient with recurrent episodes of severe anemia. At least some component has been due to iron deficiency associated with GI blood loss. 2. He also was found to have evidence of B12 deficiency, for which he started B12 replacement. 3. He has had chronic diarrhea, and he has had significant weight loss. 4. Hypertension. 5. Hyperlipidemia. 6. Type II diabetes. 7. Peripheral arterial disease. 8. COPD. 9. History of MRSA infections. 10. Benign prostatic hypertrophy. 11. Chronic anxiety. Problems Addressed with this Encounter and Plan: Patient with recurrent episodes of severe anemia. He undoubtedly has a component of GI blood loss, but he also has some underlying chronic anemia of undetermined cause. He recently was hospitalized again with another episode of severe anemia, reportedly with positive stool Hemoccult. A specific source of GI blood loss has not been determined. At this point I will repeat his CBC, serum iron studies, and ferritin. If he is iron deficient, he will be given parenteral iron replacement with Injectafer, as his iron deficiency in the past has not corrected on oral iron. In the meantime, he also continues his B12 replacement. Signed By: Jan Mehta M.D. <<Signature on File>>
== END 2021-07-30 11:42 | disposition home or self-care (01) ==
LOC: ONCMED 11:45
PROVIDERS: PCP Internal Medicine; Visit Provider Internal Medicine Medical Oncology
DX: D50.9 Iron deficiency anemia, unspecified (principal); K92.2 Gastrointestinal hemorrhage, unspecified; J44.9 Chronic obstructive pulmonary disease, unspecified; Z79.899 Other long term (current) drug therapy
CPT/HCPCS: 36415; 80053; 82728; 83010; 83540; 83550; 83615; 85025; 85045; 85651; 99214

== ENCOUNTER → 2021-07-31 08:06 | Outpatient (BNVA) | payer MEDICARE, MEDICAID, SELFPAY | PROVIDERS: PCP Internal Medicine; Visit Provider Nurse Practitioner Psychiatric/Mental Health | DX: Z79.899 Other long term (current) drug therapy (principal) | CPT/HCPCS: 80061; 83036 ==

== ENCOUNTER 2021-08-06 06:27 | Outpatient (CLI) | payer MEDICARE, MEDICAID, SELFPAY ==
[2021-08-06] MEDS: iron sucrose 200 MG in sodium chloride 0.9% (100 ml) 100 ML 220 MG IV (14:57)
== END 2021-08-06 06:28 | disposition home or self-care (01) ==
LOC: ONCMED 06:27
PROVIDERS: PCP Internal Medicine; Visit Provider Internal Medicine Medical Oncology
DX: D50.0 Iron deficiency anemia secondary to blood loss (chronic) (principal); Z79.899 Other long term (current) drug therapy
CPT/HCPCS: 96365; J1756

== ENCOUNTER → 2021-08-10 08:34 | Outpatient (BNVA) | payer MEDICARE, MEDICAID, SELFPAY | PROVIDERS: PCP Internal Medicine; Visit Provider Internal Medicine | DX: K92.1 Melena (principal) | CPT/HCPCS: 85025 ==

== ENCOUNTER 2021-08-13 06:07 | Outpatient (CLI) | payer MEDICARE, MEDICAID, SELFPAY ==
[2021-08-13] MEDS: iron sucrose 200 MG in sodium chloride 0.9% (100 ml) 100 ML 220 MG IV (15:18)
== END 2021-08-13 06:08 | disposition home or self-care (01) ==
LOC: ONCMED 06:07
PROVIDERS: PCP Internal Medicine; Visit Provider Internal Medicine Medical Oncology
DX: D50.0 Iron deficiency anemia secondary to blood loss (chronic) (principal)
CPT/HCPCS: 96365; J1756

== ENCOUNTER 2021-08-18 13:33 | Outpatient (CLI) | payer MEDICARE, MEDICAID, SELFPAY ==
[2021-08-18] MEDS: iron sucrose 200 MG in sodium chloride 0.9% (100 ml) 100 ML 220 MG IV (14:16)
== END 2021-08-18 13:34 | disposition home or self-care (01) ==
PROVIDERS: PCP Internal Medicine; Visit Provider Internal Medicine Medical Oncology
DX: D50.0 Iron deficiency anemia secondary to blood loss (chronic) (principal); Z79.899 Other long term (current) drug therapy
CPT/HCPCS: 96365; J1756

== ENCOUNTER 2021-08-20 06:52 | Outpatient (CLI) | payer MEDICARE, MEDICAID, SELFPAY ==
[2021-08-20] MEDS: iron sucrose 200 MG in sodium chloride 0.9% (100 ml) 100 ML 220 MG IV (14:05)
== END 2021-08-20 06:53 | disposition home or self-care (01) ==
LOC: ONCMED 06:52
PROVIDERS: PCP Internal Medicine; Visit Provider Internal Medicine Medical Oncology
DX: D50.0 Iron deficiency anemia secondary to blood loss (chronic) (principal); Z79.899 Other long term (current) drug therapy
CPT/HCPCS: 96365; J1756

== ENCOUNTER 2021-08-24 06:51 | Outpatient (CLI) | payer MEDICARE, MEDICAID, SELFPAY ==
[2021-08-24] MEDS: iron sucrose 200 MG in sodium chloride 0.9% (100 ml) 100 ML 220 MG IV (14:22)
== END 2021-08-24 06:52 | disposition home or self-care (01) ==
LOC: ONCMED 06:52
PROVIDERS: PCP Internal Medicine; Visit Provider Internal Medicine Medical Oncology
DX: D50.0 Iron deficiency anemia secondary to blood loss (chronic) (principal)
CPT/HCPCS: 96365; J1756

== ENCOUNTER → 2021-08-26 14:34 | Outpatient (BNVA) | payer MEDICARE, MEDICAID, SELFPAY | PROVIDERS: PCP Internal Medicine; Visit Provider Social Worker Clinical | DX: F25.1 Schizoaffective disorder, depressive type (principal) | CPT/HCPCS: 90834 ==

== ENCOUNTER → 2021-09-08 10:10 | Outpatient (BNVA) | payer MEDICARE, MEDICAID, SELFPAY | PROVIDERS: PCP Internal Medicine; Visit Provider Podiatrist Foot & Ankle Surgery | DX: E11.43 Type 2 diabetes mellitus with diabetic autonomic (poly)neuropathy (principal); L84 Corns and callosities; I73.9 Peripheral vascular disease, unspecified; E11.42 Type 2 diabetes mellitus with diabetic polyneuropathy; T14.8XXA Other injury of unspecified body region, initial encounter; M79.671 Pain in right foot; L60.3 Nail dystrophy | CPT/HCPCS: 73630 ==

== ENCOUNTER 2021-09-10 13:08 | Outpatient (CLI) | payer MEDICARE, MEDICAID, SELFPAY ==
--- NOTE | 2021-09-10 14:15 | USCV_ITS ---
Fitch Hussein Age: 66 Gender: M : 1955 Exam Date: 09/10/2021 13:42 Ordering Phys: Kashif Mejias M.D ([email or web address]) Technologist: Cat De Leon Exam Location: [facility] Indication: PVD unspecified Risk Factors: PVD Previous Vascular Surgery: None Right Brachial BP: / Left Brachial BP: / Right Left Velocity (cm/s) Spectral Plaque Velocity (cm/s) Spectral Plaque Syst/Diast Broadening Syst/Diast Broadening 60.60/ 8.80 Prox CCA 80.20 / 6.60 Homo 72.80/ 14.30 Mid CCA 68.40 / 14.50 69.50/ 14.30 Hetro Distal CCA 41.90 / 8.50 103.60/17.60 Hetro Prox ICA 114.40/ 19.70 Hetro 63.90/ 15.40 Mid ICA 81.60 / 15.40 94.80/ 23.20 Distal ICA 78.80 / 20.20 94.80 ECA 241.10 Hetro 1.42 ICA/CCA 1.43 Antegrade Vertebral Antegrade 41.20/ 10.90 cm/s 44.90/ 12.80 cm/s Tri Subclavian Tri 213.1 85.20 0 FINDINGS Comparison: none available. No significant elevation of systolic or diastolic velocities. Mixture of calcified and noncalcified plaque in the bifurcations. Antegrade vertebral arteries. MIld left subclavian artery stenosis. CONCLUSIONS Bilateral ICA stenosis less than 50%. Moderate atherosclerosis. Dr. Estrella Min DO (Electronically Signed) Final Date: 10 September 2021 14:35 S
== END 2021-09-10 13:09 | disposition home or self-care (01) ==
LOC: RAD 13:10
PROVIDERS: PCP Nurse Practitioner Family; Visit Provider Internal Medicine
DX: I65.23 Occlusion and stenosis of bilateral carotid arteries (principal); I73.9 Peripheral vascular disease, unspecified
CPT/HCPCS: 93880

== ENCOUNTER 2021-09-22 12:12 | Outpatient (CLI) | payer MEDICARE, MEDICAID, SELFPAY ==
[2021-09-22 12:58] LABS: Basophils # 0.1 10^3/uL (0.0-0.1); Eosinophils # 0.6 10^3/uL (0.0-0.8); Eosinophils % 8.3 %; Hematocrit 32.4 % (42.0-52.0); Hemoglobin 10.4 g/dL (11.7-16.6); Lymphocytes # 1.4 10^3/uL (0.8-4.8); Lymphocytes % 19.6 %; Mean Corpuscular HGB Conc 32.1 g/dL (30.0-36.0); Mean Corpuscular Hemoglobin 29.2 pg (28.0-34.0); Mean Platelet Volume 9.2 fL (7.4-10.4); Monocytes # 0.5 10^3/uL (0.2-0.9); Monocytes % 6.5 %; Neutrophils # 4.46 10^3/uL (1.8-7.7); Neutrophils % 64.2 %; Nucleated Red Blood Cells % 0 %; Platelet Count 255 10^3/cmm (130-400); Red Blood Count 3.56 10^6/uL (4.1-5.3); Red Cell Distribution Width 15.6 % (12.1-15.1)
[2021-09-22 13:17] LABS: Alanine Aminotransferase 12 U/L (0-41); Albumin Level 3.9 g/dL (3.5-5.2); Alkaline Phosphatase 88 IU/L (40-130); Anion Gap 13.7 (5-19); Aspartate Amino Transferase 13 U/L (0-40); Blood Urea Nitrogen 14 mg/dL (8-23); Calcium 8.9 mg/dL (8.5-10.5); Carbon Dioxide 29 mmol/L (22-29); Chloride 99 mmol/L (98-107); Ferritin 184 ng/mL (30-400); Glomerular Filtration Rate 112.8 mL/min (90-130); Glucose 109 mg/dL (65-115); Iron 65 ug/dL (59-158); Osmolality Calculated 285 mOsm/kg (285-295); Percent Saturation 24.8 % (20-50); Potassium 4.7 mmol/L (3.5-5.1); Sodium 137 mmol/L (136-145); Total Bilirubin 0.2 mg/dL (0.15-1.2); Total Iron Binding Capacity 262 mcg/dl; Total Protein 6.9 g/dL (6.6-8.7); Unsaturated Iron Binding 197 ug/dL (112-347)
[2021-09-24 12:44] LABS: Erythrocyte Sedimentation Rate 22 mm/hr (0-10)
--- NOTE | 2021-09-26 11:17 | ONC FU_ITS ---
Dr. Mehta Patient Follow-Up Note Patient: Hussein Fitch Unit #: [id number]: 1955 Dicatated By: Jan Mehta M.D.Date of Visit:Sep 22, 2021 Onc Med Follow-up/Prog Note Chief Complaint: Anemia. History of Present Illness: This is a 66 year-old man with anemia, at least some complement of which has been due to iron deficiency. In May 2013 he was admitted to the hospital with severe anemia, hemoglobin at 5.4 g with hematocrit 15.6%. The red cell indices were in the upper normal range. The white blood cell count was normal at 6900, and the platelet count was normal at 280,000. The uncorrected reticulocyte count was 7.7%. B12 and folate levels were normal. The serum iron was normal at 101 mcg/dL with transferrin saturation 24.9%. He was transfused a total of 4 units of packed red blood cells. He did undergo upper and lower GI endoscopy. The only abnormal finding was mild gastritis. He apparently had a previous history of GI bleeding due to peptic ulcer disease. Despite the negative endoscopy findings, the clinical picture appeared to be most consistent with acute GI blood loss. However, he also had undergone a left femoropopliteal bypass procedure a little over a month prior to that admission. I had seen him initially in June 2013. At that point his transferrin saturation was low at 11.4%, and I did opt to have him start parenteral iron replacement with Venofer, though his hemoglobin was just mildly decreased at 11.9 g. He did have 3/3 stools come back heme-positive. On 08/27/2019 his hemoglobin had dropped back down to 5.4 g, and he was again transfused PRBC. He required further transfusions in December 2013, and January 2014 he was again given parenteral iron replacement with Venofer. In May 2014 he underwent redo left femoropopliteal bypass. In September 2014 he was admitted to the hospital again with severe anemia, hemoglobin 4.5 g. That episode occurred while on warfarin with supratherapeutic INR. His laboratory studies from 07/23/2019 showed recurrence of anemia with hemoglobin 8.8 g and hematocrit 26.8%. The red cell indices were in the low normal range. His serum iron studies showed transferrin saturation low at 8%. He also had a low B12 level at 173 pg/mL. He began B12 replacement. His stool hemoccult on 08/01/2019 was reported to be positive. He had undergone repeat EGD and colonoscopy by Dr. Garrett. The EGD showed mild gastritis. There were no abnormalities noted on the colonoscopy. There was no source of GI blood loss identified. I had seen him for a follow-up visit on 08/13/2019. His hemoglobin was down slightly but adequate at 10.0 g. His transferrin saturation was low at 5.8% with ferritin 17.0 ng/mL, consistent with iron deficiency. He was then given parenteral iron replacement with 2 infusions of Injectafer. A follow-up CBC on 10/02/2019 was unchanged with hemoglobin 10.2 g, white blood cell count 6500, and platelet count 287,000. His transferrin saturation, though, had increased to 28.9% and his ferritin had increased to 356 ng/mL. As of his follow-up visit in November 2019 he remained mildly anemic, hemoglobin 10.5 g, but with normal transferrin saturation at 31%. His repeat laboratory studies on 07/03/2020 showed stable hemoglobin at 10.3 g, but his serum iron studies show low transferrin saturation of 13%, consistent with iron deficiency. His ferritin was in the low normal range. As such, he was given additional parenteral iron replacement with 2 infusions of Injectafer. He was then seen for a follow-up visit on 08/18/2020. He was still moderately anemic, hemoglobin 9.6 g. His serum iron studies showed normal transferrin saturation of 42.4%, so that the anemia did not appear to be due to iron deficiency. His bone marrow aspiration/biopsy on 12/04/2020 showed normal cellularity estimated at 20 to 40%. There were no overt dysplastic or megaloblastic changes, and there was no evidence of an infiltrative process. There was adequate storage iron present. The FISH panel for MDS was unrevealing. Overall, the marrow showed no diagnostic abnormality. His other medical illnesses include hypertension, dyslipidemia, type 2 diabetes, peripheral arterial disease, and COPD. He has had multiple surgeries on his right arm due to an MRSA infection. He also had 2 surgeries on his right foot. He underwent left fempop bypass in March 2013 and redo left fempop bypass in May 2014. He also had a previous angioplasty/stent procedure to the right leg. His prior GI evaluations included EGD and colonoscopy in May 2013, capsule endoscopy in April 2014, and EGD in October 2016. He has a history of smoking for close to 50 years, and he continues to smoke 1 pack of cigarettes daily. INTERIM HISTORY: On 07/21/2021 he was admitted to the hospital after presenting to the emergency room with lightheadedness. He was severely anemic, hemoglobin 5.9 g and hematocrit 19.2%. The red cell indices were normal. The white blood cell count was 6700 and the platelet count was 334,000. His serum iron studies showed no normal transferrin saturation at 27%, but the ferritin was low at 22 ng/mL, suggestive of iron deficiency. His EGD showed a moderate hiatal hernia with mild diffuse gastritis. There was no obvious source for GI blood loss. He was transfused PRBC. He had been on anticoagulation with apixaban, and that was stopped. His repeat CBC at discharge showed hemoglobin up to 8.7 g. I had seen him for a follow-up visit on 07/30/2021. His hemoglobin remained low at 8.9 g. His serum iron studies show low transferrin saturation at 5.3% and the ferritin was low at 31 ng/mL, consistent with iron deficiency. As such he was given parenteral iron replacement with 1000 mg of Venofer, administered in 200 mg increments over a period from 08/06/2021 to 08/24/2021. He tolerated it well. He is seen for a follow-up visit. He says he is feeling pretty good. He has had improvement in his energy and activity tolerance. He is able to do light work. His ECOG score is 1. His appetite has been okay. He has not had fever. He does wake up sweating quite often. He has not had sore mouth or throat, and he has only a little bit of cough. He has shortness of breath with activity, but his breathing is pretty good. He does not complain of chest pain. He has diarrhea almost all the time, typically with 3 stools a day. He is having difficulty voiding, and he says he cannot hardly make a stream. He voids frequently and he gets up every 2 hours during the night. His right foot is sore all the time. He has no other joint or bone pain. He says he has headache about every other day. He sometimes has difficulty with balance, and he says he is prone to falling. He has no focal neurologic symptoms. Medications: Abilify 1 Tablet (of 5 mg) Oral daily, busPIRone HCl 1 Tablet (of 15 mg) Oral daily, Colace 1 Capsule (of 100 mg) Oral b.i.d., Ferrous Sulfate 1 Tablet (of 325 (65 fe) mg) Oral q on Every Other Day, Gabapentin 1 Capsule (of 300 mg) Oral t.i.d., glipiZIDE XL 1 Tablet (of 2.5 mg) Tablet SR 24 HR Oral daily, metFORMIN HCl 1 Tablet (of 850 mg) Oral daily, Potassium Chloride ER 1 Tablet (of 20 meq) Tablet, controlled release Oral b.i.d., Pravastatin Sodium 1 (80 mg) Tablet Oral at bedtime, PriLOSEC OTC 1 Tablet (of 20 mg) Tablet, enteric coated Oral daily, Sildenafil Citrate 1 Tablet (of 50 mg) Oral PRN, Vitamin C 1 Capsule (of 500 mg) Oral daily Allergies: No Known Allergies. Vital Signs: Performed on Sep 22, 2021 16:11 Height - 71.00 in Weight - 135.8 lbs (HIGH) BSA - 1.79 sq.m BMI - 18.94 Temperature - 98.3 F (LOW) Pulse - 92 /min Respiration - 18 /min BP - 159/76 mm(hg) (HIGH) O2 Sat - 97 % Pain - 0 Fatigue - 0 Physical Examination: Constitutional - He looks a little better generally, though he still appears chronically ill, Eyes - Sclerae nonicteric. Conjunctivae clear, ENMT - No lesions noted in the oral cavity, Hematologic/Lymphatic - No cervical, clavicular or axillary adenopathy, Respiratory - Lungs sound clear with some decrease in air movement bilaterally, Cardiovascular - Heart rhythm is regular. There is a II/ systolic murmur. There is no gallop or rub noted, Abdomen - Soft. Liver and spleen are not enlarged. There is no abdominal mass or ascites noted and no inguinal adenopathy, Extremities - No edema. He has chronic purpura, Neurologic - No focal neurologic deficits noted. Lab/Imaging: Test performed on Sep 22, 2021 12:40 Ferritin 184 ng/mL Iron 65 mcg/dL Sodium 137 mmol/L Iron Binding Capacity (TIBC) 262 mcg/dl Potassium 4.7 mmol/L % Iron Saturation 24.8 % Chloride 99 mmol/L CO2 29 mmol/L UIBC 197 mcg/dL Anion Gap 13.7 BUN 14 mg/dL Creatinine 0.7 mg/dL Cr Clearance (Est) 90.44 mL/min eGFR 112.8 mL/min Glucose 109 mg/dL Osmolality - Calculated 285 mOsm/kg Calcium 8.9 mg/dL Protein, Total 6.9 g/dL Albumin 3.9 g/dL Globulin 3.0 g/dL Bilirubin, Total 0.2 mg/dL ALT (SGPT) 12 U/L AST (SGOT) 13 U/L Alkaline Phosphatase 88 IU/L ESR (Sed Rate) 22 mm/hr WBC 7.0 10 3/uL RBC 3.56 10 6/uL HGB 10.4 g/dL HCT 32.4 % MCV 91.0 fl MCH 29.2 pg MCHC 32.1 g/dL RDW 15.6 % Platelet Count 255 10 3/cmm MPV 9.2 fL Neutrophils 4.46 10 3/uL Lymphocytes 1.4 10 3/uL Monocytes 0.5 10 3/uL Eosinophils 0.6 10 3/uL Basophils 0.1 10 3/uL Neutrophil % 64.2 % Lymphocyte % 19.6 % Monocyte % 6.5 % Eosinophil % 8.3 % Basophils % 1.0 % NRBC % 0 % Problem List: 1. Patient with recurrent episodes of severe anemia. At least some component has been due to iron deficiency associated with GI blood loss. 2. He also was found to have evidence of B12 deficiency, for which he started B12 replacement. 3. He has had chronic diarrhea, and he has had significant weight loss. 4. Hypertension. 5. Hyperlipidemia. 6. Type II diabetes. 7. Peripheral arterial disease. 8. COPD. 9. History of MRSA infections. 10. Benign prostatic hypertrophy. 11. Chronic anxiety. Problems Addressed with this Encounter and Plan: 1. Patient with recurrent episodes of severe anemia. It appears likely that he has at least some component of GI blood loss, but he also has some underlying chronic anemia of undetermined cause. In June 2021 he was hospitalized again with another episode of severe anemia, reportedly with positive stool Hemoccult. A specific source of GI blood loss was not determined. At his follow-up visit on 07/30/2021 he remained anemic with hemoglobin 8.9 g and his transferrin saturation and serum ferritin were consistent with iron deficiency. He was given a course of parenteral iron replacement with 5 infusions of Venofer, 1000 mg in total, completed on 08/24/2021. He has had some response, though he remains mildly anemic. He will now be followed expectantly. Blood counts will be monitored monthly. I will see him again in 3 months, or sooner as needed. He will be given a flu shot today. 2. He has chronic diarrhea. He is recommended to stop ferrous sulfate and to stop Metformin, at least temporarily, to make sure these are not contributing. I may then consider giving him a trial of therapy with colestipol. Signed By: Jan Mehta M.D. <<Signature on File>>
== END 2021-09-22 12:13 | disposition home or self-care (01) ==
PROVIDERS: PCP Nurse Practitioner Family; Visit Provider Internal Medicine Medical Oncology
DX: D50.0 Iron deficiency anemia secondary to blood loss (chronic) (principal); Z23 Encounter for immunization
CPT/HCPCS: 36415; 80053; 82728; 83540; 83550; 85025; 85651; 90471; 90686; 99214

== ENCOUNTER → 2021-09-23 08:24 | Outpatient (BNVA) | payer MEDICARE, MEDICAID, SELFPAY | PROVIDERS: PCP Nurse Practitioner Family; Visit Provider Social Worker Clinical | DX: F25.1 Schizoaffective disorder, depressive type (principal) | CPT/HCPCS: 90834 ==

== ENCOUNTER → 2021-10-13 12:48 | Outpatient (BNVA) | payer MEDICARE, MEDICAID, SELFPAY | PROVIDERS: PCP Internal Medicine; Visit Provider Nurse Practitioner Psychiatric/Mental Health | DX: F25.1 Schizoaffective disorder, depressive type (principal); F17.210 Nicotine dependence, cigarettes, uncomplicated; Z79.899 Other long term (current) drug therapy | CPT/HCPCS: 99214 ==

== ENCOUNTER → 2021-10-15 12:48 | Outpatient (BNVA) | payer MEDICARE, MEDICAID, SELFPAY | PROVIDERS: PCP Nurse Practitioner Family; Visit Provider Social Worker Clinical | DX: F25.1 Schizoaffective disorder, depressive type (principal) | CPT/HCPCS: 90834 ==

== ENCOUNTER 2021-10-26 13:08 | Outpatient (CLI) | payer MEDICARE, MEDICAID, SELFPAY ==
[2021-10-26 13:27] LABS: Basophils # 0.1 10^3/uL (0.0-0.1); Basophils % 0.6 %; Eosinophils # 0.7 10^3/uL (0.0-0.8); Eosinophils % 7.6 %; Hematocrit 34.7 % (42.0-52.0); Hemoglobin 11.3 g/dL (11.7-16.6); Lymphocytes % 22.1 %; Mean Corpuscular HGB Conc 32.6 g/dL (30.0-36.0); Mean Corpuscular Hemoglobin 28.9 pg (28.0-34.0); Mean Corpuscular Volume 88.7 fl (80-94); Mean Platelet Volume 9.4 fL (7.4-10.4); Monocytes # 0.6 10^3/uL (0.2-0.9); Monocytes % 6.4 %; Neutrophils # 5.64 10^3/uL (1.8-7.7); Neutrophils % 62.9 %; Nucleated Red Blood Cells % 0 %; Platelet Count 280 10^3/cmm (130-400); Red Blood Count 3.91 10^6/uL (4.1-5.3); Red Cell Distribution Width 15.2 % (12.1-15.1)
== END 2021-10-26 13:09 | disposition home or self-care (01) ==
LOC: ONCMED 13:10
PROVIDERS: PCP Nurse Practitioner Family; Visit Provider Internal Medicine Medical Oncology
DX: D50.0 Iron deficiency anemia secondary to blood loss (chronic) (principal)
CPT/HCPCS: 36415; 85025

== ENCOUNTER → 2021-11-09 13:44 | Outpatient (BNVA) | payer MEDICARE, MEDICAID, SELFPAY | PROVIDERS: PCP Nurse Practitioner Family; Visit Provider Social Worker Clinical | DX: F25.1 Schizoaffective disorder, depressive type (principal) | CPT/HCPCS: 90834 ==

== ENCOUNTER 2021-11-25 13:27 | Outpatient (CLI) | payer MEDICARE, MEDICAID, SELFPAY ==
[2021-11-25 13:53] LABS: Basophils # 0.1 10^3/uL (0.0-0.1); Basophils % 0.6 %; Eosinophils # 0.5 10^3/uL (0.0-0.8); Eosinophils % 6.4 %; Hemoglobin 11.2 g/dL (11.7-16.6); Lymphocytes # 1.8 10^3/uL (0.8-4.8); Lymphocytes % 21.8 %; Mean Corpuscular HGB Conc 32.9 g/dL (30.0-36.0); Mean Corpuscular Volume 88.1 fl (80-94); Monocytes # 0.4 10^3/uL (0.2-0.9); Neutrophils # 5.44 10^3/uL (1.8-7.7); Neutrophils % 65.7 %; Nucleated Red Blood Cells % 0 %; Platelet Count 295 10^3/cmm (130-400); Red Blood Count 3.86 10^6/uL (4.1-5.3); Red Cell Distribution Width 14.6 % (12.1-15.1); White Blood Count 8.3 10^3/uL (4.0-10.0)
[2021-11-25 14:16] LABS: Iron 50 ug/dL (59-158); Percent Saturation 16.7 % (20-50); Total Iron Binding Capacity 298 mcg/dl; Unsaturated Iron Binding 248 ug/dL (112-347)
== END 2021-11-25 13:28 | disposition home or self-care (01) ==
PROVIDERS: PCP Nurse Practitioner Family; Visit Provider Internal Medicine Medical Oncology
DX: D50.0 Iron deficiency anemia secondary to blood loss (chronic) (principal)
CPT/HCPCS: 36415; 83540; 83550; 85025

== ENCOUNTER → 2021-12-08 13:40 | Outpatient (BNVA) | payer MEDICARE, MEDICAID, SELFPAY | PROVIDERS: PCP Family Medicine; Visit Provider Social Worker Clinical | DX: F25.1 Schizoaffective disorder, depressive type (principal) | CPT/HCPCS: 90834 ==

== ENCOUNTER → 2021-12-15 13:39 | Outpatient (BNVA) | payer MEDICARE, MEDICAID, SELFPAY | PROVIDERS: PCP Family Medicine; Visit Provider Urology | DX: N13.8 Other obstructive and reflux uropathy (principal); N40.1 Benign prostatic hyperplasia with lower urinary tract symptoms; R33.9 Retention of urine, unspecified; R39.11 Hesitancy of micturition | CPT/HCPCS: 81003 ==

== ENCOUNTER 2021-12-23 14:03 | Outpatient (CLI) | payer MEDICARE, MEDICAID, SELFPAY ==
[2021-12-23 14:38] LABS: Basophils # 0.1 10^3/uL (0.0-0.1); Basophils % 0.8 %; Eosinophils # 0.5 10^3/uL (0.0-0.8); Eosinophils % 4.8 %; Hematocrit 35.1 % (42.0-52.0); Hemoglobin 11.5 g/dL (11.7-16.6); Lymphocytes % 19.8 %; Mean Corpuscular HGB Conc 32.8 g/dL (30.0-36.0); Mean Corpuscular Hemoglobin 29.9 pg (28.0-34.0); Mean Corpuscular Volume 91.4 fl (80-94); Mean Platelet Volume 8.8 fL (7.4-10.4); Monocytes # 0.5 10^3/uL (0.2-0.9); Monocytes % 5.2 %; Neutrophils # 6.92 10^3/uL (1.8-7.7); Nucleated Red Blood Cells % 0 %; Platelet Count 285 10^3/cmm (130-400); Red Blood Count 3.84 10^6/uL (4.1-5.3); Red Cell Distribution Width 13.8 % (12.1-15.1)
[2021-12-23 15:01] LABS: Alanine Aminotransferase 10 U/L (0-41); Albumin Level 4.1 g/dL (3.5-5.2); Alkaline Phosphatase 94 IU/L (40-130); Anion Gap 16.5 (5-19); Aspartate Amino Transferase 12 U/L (0-40); Blood Urea Nitrogen 18 mg/dL (8-23); Calcium 9.6 mg/dL (8.5-10.5); Carbon Dioxide 24 mmol/L (22-29); Chloride 98 mmol/L (98-107); Ferritin 127 ng/mL (30-400); Glomerular Filtration Rate 84.4 mL/min (90-130); Glucose 106 mg/dL (65-115); Iron 81 ug/dL (59-158); Osmolality Calculated 278 mOsm/kg (285-295); Percent Saturation 26.3 % (20-50); Potassium 5.5 mmol/L (3.5-5.1); Sodium 133 mmol/L (136-145); Total Bilirubin 0.2 mg/dL (0.15-1.2); Total Iron Binding Capacity 307 mcg/dl; Total Protein 7.1 g/dL (6.6-8.7); Unsaturated Iron Binding 226 ug/dL (112-347)
== END 2021-12-23 14:04 | disposition home or self-care (01) ==
PROVIDERS: PCP Family Medicine; Visit Provider Internal Medicine Medical Oncology
DX: D50.9 Iron deficiency anemia, unspecified (principal)
CPT/HCPCS: 36415; 80053; 82728; 83540; 83550; 85025

== ENCOUNTER 2021-12-24 14:03 | Outpatient (CLI) | payer MEDICARE, MEDICAID, SELFPAY ==
--- NOTE | 2021-12-25 07:27 | ONC FU_ITS ---
Dr. Mehta Patient Follow-Up Note Patient: Hussein Fitch Unit #: [id number]: 1955 Dicatated By: Jan Mehta M.D.Date of Visit:Dec 24, 2021 Onc Med Follow-up/Prog Note Chief Complaint: Anemia. History of Present Illness: This is a 66 year-old man with anemia, at least some complement of which has been due to iron deficiency. In May 2013 he was admitted to the hospital with severe anemia, hemoglobin at 5.4 g with hematocrit 15.6%. The red cell indices were in the upper normal range. The white blood cell count was normal at 6900, and the platelet count was normal at 280,000. The uncorrected reticulocyte count was 7.7%. B12 and folate levels were normal. The serum iron was normal at 101 mcg/dL with transferrin saturation 24.9%. He was transfused a total of 4 units of packed red blood cells. He did undergo upper and lower GI endoscopy. The only abnormal finding was mild gastritis. He apparently had a previous history of GI bleeding due to peptic ulcer disease. Despite the negative endoscopy findings, the clinical picture appeared to be most consistent with acute GI blood loss. However, he also had undergone a left femoropopliteal bypass procedure a little over a month prior to that admission. I had seen him initially in June 2013. At that point his transferrin saturation was low at 11.4%, and I did opt to have him start parenteral iron replacement with Venofer, though his hemoglobin was just mildly decreased at 11.9 g. He did have 3/3 stools come back heme-positive. On 08/27/2019 his hemoglobin had dropped back down to 5.4 g, and he was again transfused PRBC. He required further transfusions in December 2013, and January 2014 he was again given parenteral iron replacement with Venofer. In May 2014 he underwent redo left femoropopliteal bypass. In September 2014 he was admitted to the hospital again with severe anemia, hemoglobin 4.5 g. That episode occurred while on warfarin with supratherapeutic INR. His laboratory studies from 07/23/2019 showed recurrence of anemia with hemoglobin 8.8 g and hematocrit 26.8%. The red cell indices were in the low normal range. His serum iron studies showed transferrin saturation low at 8%. He also had a low B12 level at 173 pg/mL. He began B12 replacement. His stool hemoccult on 08/01/2019 was reported to be positive. He had undergone repeat EGD and colonoscopy by Dr. Garrett. The EGD showed mild gastritis. There were no abnormalities noted on the colonoscopy. There was no source of GI blood loss identified. I had seen him for a follow-up visit on 08/13/2019. His hemoglobin was down slightly but adequate at 10.0 g. His transferrin saturation was low at 5.8% with ferritin 17.0 ng/mL, consistent with iron deficiency. He was then given parenteral iron replacement with 2 infusions of Injectafer. A follow-up CBC on 10/02/2019 was unchanged with hemoglobin 10.2 g, white blood cell count 6500, and platelet count 287,000. His transferrin saturation, though, had increased to 28.9% and his ferritin had increased to 356 ng/mL. As of his follow-up visit in November 2019 he remained mildly anemic, hemoglobin 10.5 g, but with normal transferrin saturation at 31%. His repeat laboratory studies on 07/03/2020 showed stable hemoglobin at 10.3 g, but his serum iron studies show low transferrin saturation of 13%, consistent with iron deficiency. His ferritin was in the low normal range. As such, he was given additional parenteral iron replacement with 2 infusions of Injectafer. He was then seen for a follow-up visit on 08/18/2020. He was still moderately anemic, hemoglobin 9.6 g. His serum iron studies showed normal transferrin saturation of 42.4%, so that the anemia did not appear to be due to iron deficiency. His bone marrow aspiration/biopsy on 12/04/2020 showed normal cellularity estimated at 20 to 40%. There were no overt dysplastic or megaloblastic changes, and there was no evidence of an infiltrative process. There was adequate storage iron present. The FISH panel for MDS was unrevealing. Overall, the marrow showed no diagnostic abnormality. His other medical illnesses include hypertension, dyslipidemia, type 2 diabetes, peripheral arterial disease, and COPD. He has had multiple surgeries on his right arm due to an MRSA infection. He also had 2 surgeries on his right foot. He underwent left fempop bypass in March 2013 and redo left fempop bypass in May 2014. He also had a previous angioplasty/stent procedure to the right leg. His prior GI evaluations included EGD and colonoscopy in May 2013, capsule endoscopy in April 2014, and EGD in October 2016. He has a history of smoking for close to 50 years, and he continues to smoke 1 pack of cigarettes daily. INTERIM HISTORY: On 07/21/2021 he was admitted to the hospital after presenting to the emergency room with lightheadedness. He was severely anemic, hemoglobin 5.9 g and hematocrit 19.2%. The red cell indices were normal. The white blood cell count was 6700 and the platelet count was 334,000. His serum iron studies showed no normal transferrin saturation at 27%, but the ferritin was low at 22 ng/mL, suggestive of iron deficiency. His EGD showed a moderate hiatal hernia with mild diffuse gastritis. There was no obvious source for GI blood loss. He was transfused PRBC. He had been on anticoagulation with apixaban, and that was stopped. His repeat CBC at discharge showed hemoglobin up to 8.7 g. I had seen him for a follow-up visit on 07/30/2021. His hemoglobin remained low at 8.9 g. His serum iron studies show low transferrin saturation at 5.3% and the ferritin was low at 31 ng/mL, consistent with iron deficiency. As such he was given parenteral iron replacement with 1000 mg of Venofer, administered in 200 mg increments over a period from 08/06/2021 to 08/24/2021. He tolerated it well. He did show some response with his repeat CBC on 09/22/2021 showing an increase in the hemoglobin to 10.4 g with transferrin saturation normal at 24.8%. As of 10/26/2021 there was further increase in the hemoglobin to 11.3 g. He is seen for a follow-up visit. He says he has been feeling pretty good. His energy varies, but he is able to do some light work at home. ECOG score is 1. His appetite lately has been better, and he has been able to gain a little weight. He does not have fever. He sometimes has sweating at night. He has not had sore mouth or throat. He has just occasional cough. He is still smoking. His breathing, though, is okay, and he does not complain of chest pain. He currently has no GI or complaints. He has joint pain, which is chronic. He does not complain of headache. He sometimes gets lightheaded. Recently he has had numbness on the left side of his tongue. He has no other focal neurologic symptoms. Medications: Abilify 1 Tablet (of 5 mg) Oral daily, busPIRone HCl 1 Tablet (of 15 mg) Oral daily, Colace 1 Capsule (of 100 mg) Oral b.i.d., Ferrous Sulfate 1 Tablet (of 325 (65 fe) mg) Oral q on Every Other Day, Gabapentin 1 Capsule (of 300 mg) Oral t.i.d., glipiZIDE XL 1 Tablet (of 2.5 mg) Tablet SR 24 HR Oral daily, metFORMIN HCl 1 Tablet (of 850 mg) Oral daily, Nitroglycerin Tablet, sublingual Sublingual PRN, Potassium Chloride ER 1 Tablet (of 20 meq) Tablet, controlled release Oral b.i.d., Pravastatin Sodium 1 (80 mg) Tablet Oral at bedtime, PriLOSEC OTC 1 Tablet (of 20 mg) Tablet, enteric coated Oral daily, Sildenafil Citrate 1 Tablet (of 50 mg) Oral PRN, Vitamin C 1 Capsule (of 500 mg) Oral daily Allergies: No Known Allergies. Vital Signs: Performed on Dec 24, 2021 16:00 Height - 71.00 in Weight - 141.6 lbs (HIGH) BSA - 1.82 sq.m BMI - 19.75 Temperature - 98.7 F Pulse - 94 /min Respiration - 16 /min BP - 188/91 mm(hg) (HIGH) O2 Sat - 98 % Pain - 0 Fatigue - 0 Physical Examination: Constitutional - He appears chronically ill, Eyes - Sclerae nonicteric. Conjunctivae clear, ENMT - No lesions noted in the oral cavity, Hematologic/Lymphatic - No cervical, clavicular or axillary adenopathy, Respiratory - Lungs sound clear with some decrease in air movement bilaterally, Cardiovascular - Heart rhythm is regular. There is a II/ systolic murmur. There is no gallop or rub noted, Abdomen - Soft. Liver and spleen are not enlarged. There is no abdominal mass or ascites noted and no inguinal adenopathy, Extremities - No edema. He has chronic purpura, Neurologic - No focal neurologic deficits noted. Lab/Imaging: Test performed on Nov 25, 2021 13:38 Iron 50 mcg/dL Iron Binding Capacity (TIBC) 298 mcg/dl % Iron Saturation 16.7 % UIBC 248 mcg/dL WBC 8.3 10 3/uL RBC 3.86 10 6/uL HGB 11.2 g/dL HCT 34.0 % MCV 88.1 fl MCH 29.0 pg MCHC 32.9 g/dL RDW 14.6 % Platelet Count 295 10 3/cmm MPV 9.0 fL Neutrophils 5.44 10 3/uL Lymphocytes 1.8 10 3/uL Monocytes 0.4 10 3/uL Eosinophils 0.5 10 3/uL Basophils 0.1 10 3/uL Neutrophil % 65.7 % Lymphocyte % 21.8 % Monocyte % 5.0 % Eosinophil % 6.4 % Basophils % 0.6 % NRBC % 0 % Problem List: 1. Patient with recurrent episodes of severe anemia. At least some component has been due to iron deficiency associated with GI blood loss. 2. He also was found to have evidence of B12 deficiency, for which he started B12 replacement. 3. He has had chronic diarrhea, and he has had significant weight loss. 4. Hypertension. 5. Hyperlipidemia. 6. Type II diabetes. 7. Peripheral arterial disease. 8. COPD. 9. History of MRSA infections. 10. Benign prostatic hypertrophy. 11. Chronic anxiety. Problems Addressed with this Encounter and Plan: 1. Patient with recurrent episodes of severe anemia. It appears likely that he has at least some component of GI blood loss, but he also has some underlying chronic anemia of undetermined cause. In June 2021 he was hospitalized again with another episode of severe anemia, reportedly with positive stool Hemoccult. A specific source of GI blood loss was not determined. At his follow-up visit on 07/30/2021 he remained anemic with hemoglobin 8.9 g and his transferrin saturation and serum ferritin were consistent with iron deficiency. He was given a course of parenteral iron replacement with 5 infusions of Venofer, 1000 mg in total, completed on 08/24/2021. He has had evidence of response to the parenteral iron replacement with his hemoglobin now stabilizing at 11 g. His transferrin saturation remains in normal range at 26%. He will continue on expectant management. I will see him again in 3 months, or sooner as needed. 2. He has a slightly elevated potassium. I will have to verify his medications with his [id number], as our records indicate that he has been on an oral potassium supplement. Any medication adjustments will be made through the primary care provider. Signed By: Jan Mehta M.D. <<Signature on File>>
== END 2021-12-24 14:04 | disposition home or self-care (01) ==
PROVIDERS: PCP Family Medicine; Visit Provider Internal Medicine Medical Oncology
DX: D64.9 Anemia, unspecified (principal); E53.8 Deficiency of other specified B group vitamins; K52.9 Noninfective gastroenteritis and colitis, unspecified; I10 Essential (primary) hypertension; E78.5 Hyperlipidemia, unspecified; E11.9 Type 2 diabetes mellitus without complications; I73.9 Peripheral vascular disease, unspecified; J44.9 Chronic obstructive pulmonary disease, unspecified; Z86.14 Personal history of Methicillin resistant Staphylococcus aureus infection; N40.0 Benign prostatic hyperplasia without lower urinary tract symptoms; F41.9 Anxiety disorder, unspecified; Z79.899 Other long term (current) drug therapy
CPT/HCPCS: 99214

== ENCOUNTER → 2021-12-28 12:49 | Outpatient (BNVA) | payer MEDICARE, MEDICAID, SELFPAY | PROVIDERS: PCP Family Medicine; Visit Provider Social Worker Clinical | DX: F25.1 Schizoaffective disorder, depressive type (principal) | CPT/HCPCS: 90834 ==

== ENCOUNTER → 2022-01-07 08:10 | Outpatient (BNVA) | payer MEDICARE, MEDICAID, SELFPAY | PROVIDERS: PCP Family Medicine; Visit Provider Nurse Practitioner Psychiatric/Mental Health | DX: F25.1 Schizoaffective disorder, depressive type (principal); F17.210 Nicotine dependence, cigarettes, uncomplicated; Z79.899 Other long term (current) drug therapy | CPT/HCPCS: 99214 ==

== ENCOUNTER 2022-01-13 18:08 | Emergency (ER) | payer MEDICARE, MEDICAID, SELFPAY ==
[2022-01-13 18:32] VITALS: BP 159/86; PULSE 97; RESP 16; TEMP 36.8; O2SAT 96; BMI 18.8
--- NOTE | 2022-01-13 18:38 | XRR_ITS ---
PROCEDURE INFORMATION: Exam: XR Chest Exam date and time: 01/13/2022 6:38 PM Age: 67 years old Clinical indication: Other: Rapid heart rate; Additional info: Arrhythmia, history of 3 heart attacks TECHNIQUE: Imaging protocol: XR of the chest. Views: 1 view. COMPARISON: CR XR chest 1V portable [id number] 07/20/2021 4:43 PM FINDINGS: Lungs: Emphysematous changes. Pleural spaces: Unremarkable. No pleural effusion. No pneumothorax. Heart/Mediastinum: Unremarkable. No cardiomegaly. Bones/joints: Unremarkable. XR/XR chest 1V portable [id number] IMPRESSION: Emphysematous changes, negative for infiltrate
--- NOTE | 2022-01-13 19:33 | W.ED.ARRPALP ---
HPI - Arrhythmia/Palpitations General: Chief Complaint: Arrhythmia/Palpitations Stated Complaint: dizzy feels like pulse is up and down Time Seen by Provider: 01/13/22 19:33 History of Present Illness: Mr. Fitch is a 67-year-old gentleman with complex past medical history including COPD, hypertension, hyperlipidemia, diabetes, history of peripheral arterial disease requiring intervention and history of [place] resulting in PCI who presents emergency department due to irregular heartbeat which is symptomatic. He notes symptoms have been gradual worsening for approximately 3 to 4 weeks. He notes unprovoked episodes of low heart rate in 30s and occasionally heart rates as high as over 100. With a low heart rates he gets lightheaded and at times develops left arm and/or chest discomfort. He has not had syncope. Denies similar episodes in the past. No medication changes. Overall the intensity symptoms when present is moderate to severe. Course has been worsening in frequency. No other specific exacerbating or alleviating factors identified. 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 Lower urinary tract symptoms (LUTS) Nicotine dependence, cigarettes, uncomplicated Peripheral arterial disease Polyuria Psychiatric care Schizoaffective disorder, depressive type Surgical History H/O colonoscopy yrs ago H/O esophagogastroduodenoscopy H/O foot surgery S/P angioplasty Status post femoral-popliteal bypass surgery Family History Family/Other Stroke Cancer Diabetes Hypertension Unknown Cancer Father , at age 59 Alcoholic Mother Lung disease Stroke Denies family history of Anesthesia complication Bleeding disorder Social History Alcohol intake: former Household members: other Details: room mate Marital status: Current occupational status: disabled History of recent travel: No Current gender identity: Male Physical Exam Const: COMMON NORMALS: alert GENERAL APPEARANCE: cooperative and well developed HENMT: COMMON NORMALS: normocephalic and atraumatic HEAD & SCALP: normocephalic and atraumatic Eye: COMMON NORMALS: conjunctivae normal CONJUNCTIVA: Yes conjunctivae normal SCLERA: sclerae normal Neck/C-Spine: COMMON NORMALS: supple GENERAL: Yes trachea midline Resp: COMMON NORMALS: normal respiratory effort EFFORT & INSPECTION: Yes able to speak in complete sentences AUSCULTATION: wheezes (Trace end expiratory) and diminished lung sounds Cardio: COMMON NORMALS: regular rate and regular rhythm RATE: regular rate RHYTHM: regular rhythm GI: COMMON NORMALS: Soft to palpation PALPATION: Yes Soft to palpation and No Tenderness to palpation present (GI) PERCUSSION: normal to percussion Extremity: NARRATIVE EXTREMITY EXAM: Bilateral feet warm and well-perfused, calluses noted on the base of right foot without evidence of significant ulceration or superimposed infection GENERAL: Yes normal exam except as noted and No edema Neuro: COMMON NORMALS: moves all extremities SENSORIUM/ORIENTATION: Yes alert and No Orientation impaired Psych: COMMON NORMALS: mental status grossly normal and Normal thought process present THOUGHT PROCESS: Normal thought process present Course ED course: - Patient was seen and evaluated by me at bedside - Patient placed on cardiac monitors, IV access obtained - Initial evaluation notable for exam as above - Labs notable for no leukocytosis, near baseline normocytic anemia. Metabolic panel with perhaps mild evidence of intravascular dehydration, magnesium 1.8 and replenishment was ordered. Delta troponin is negative. BNP elevated though no evidence of pulmonary edema or peripheral edema on exam or imaging. - Imaging notable for no lobar consolidation or other acute abnormality identified on chest x-ray. - Upon serial reexamination after treatment the patient was similar. During ED stay he did not have any events relating to the reported clinical history. - I discussed the case with Dr. Mejias who is familiar with the patient. He recommended offering the patient admission for telemetry monitoring or alternatively outpatient Holter monitor. - Based on patient history, evaluation, labs, and imaging as interpreted the most likely cause of the patient's condition is unspecified arrhythmia. - The results of ED evaluation were discussed with the patient including possible disposition options. I explained to the patient that admission for telemetry monitoring would be safest way forward however it is possible that we would not see any of these events during his observation period. The patient prefers to discharge at this time. I will place a case management order for follow-up including ensuring that the patient gets Holter monitor in the morning. I discussed followup plan and return precautions. The patient verbalized understanding and felt safe for discharge. - Patient discharged in satisfactory condition. Note: Click bubbles or prepopulated almonte in note writing are used for assistance with data collection and billing and are inherently more limited than narrative and other text portions of this note. Please use narrative for additional clinical history and defer to narrative/free test for any case of contradictory information. If information appears in only free text or click bubble it should be considered present or absent as reported. Please contact note commercial lines underwriter for clarifications of clinical information or contradictory information. MDM is a brief summary, contradictory or erroneous seeming information should be clarified and full note should be reviewed. Vital Signs: Vital signs: Vital Signs Temperature 98.2 F 01/13/22 18:32 Pulse Rate 85 01/13/22 19:43 Respiratory Rate 17 01/13/22 19:43 Blood Pressure 156/88 01/13/22 19:43 Pulse Oximetry 85 L 01/13/22 19:43 MDM - Arrhythmia/Palpitations Medical Decision Making 67-year-old gentleman with history of coronary artery disease including PCI presenting with intermittent episodes of bradycardia tachycardia without specific provoking events. Bradycardic episodes are symptomatic. ?Sick sinus syndrome versus other arrhythmia. Patient did not have any episodes while in the emergency department and no obvious etiology of symptoms identified on laboratory studies. Discussed with cardiology. Patient offered admission for telemetry monitoring however he preferred to be discharged. Order placed for Holter monitor. Strict return precautions given. Medical Records I reviewed the patient's medical records. Lab Data I reviewed the patient's lab results. : 01/13/22 20:00 01/13/22 20:00 Radiology Impressions Chest X-Ray 01/13/22 18:38 IMPRESSION: Emphysematous changes, negative for infiltrate Laboratory Results WBC 8.3 10^3/uL (4.0-10.0) 01/13/22 20:00 RBC 3.65 10^6/uL (4.1-5.3) L 01/13/22 20:00 Hgb 10.9 g/dL (11.7-16.6) L 01/13/22 20:00 Hct 33.5 % (42.0-52.0) L 01/13/22 20:00 MCV 91.8 fl (80-94) 01/13/22 20:00 MCH 29.9 pg (28.0-34.0) 01/13/22 20:00 MCHC 32.5 g/dL (30.0-36.0) 01/13/22:00 RDW 13.3 % (12.1-15.1) 01/13/22 20:00 Plt Count 259 10^3/cmm (130-400) 01/13/22 20:00 MPV 8.9 fL (7.4-10.4) 01/13/22 20:00 Neut % (Auto) 58.3 % 01/13/22 20:00 Lymph % (Auto) 26.5 % 01/13/22 20:00 Harnett % (Auto) 6.7 % 01/13/22:00 Eos % (Auto) 7.4 % 01/13/22 20:00 Baso % (Auto) 0.7 % 01/13/22 20:00 Neut # (Auto) 4.83 10^3/uL (1.8-7.7) 01/13/22 20:00 Lymph # (Auto) 2.2 10^3/uL (0.8-4.8) 01/13/22 20:00 Harnett # (Auto) 0.6 10^3/uL (0.2-0.9) 01/13/22 20:00 Eos # (Auto) 0.6 10^3/uL (0.0-0.8) 01/13/22 20:00 Baso # (Auto) 0.1 10^3/uL (0.0-0.1) 01/13/22 20:00 Nucleated RBC % (auto) 0 % 01/13/22: Nucleated RBCs # 0.0 /100WBC 01/13/22 20:00 Sodium 131 mmol/L (136-145) L 01/13/22 20:00 Potassium 4.9 mmol/L (3.5-5.1) 01/13/22 20:00 Chloride 96 mmol/L (98-107) L 01/13/22 20:00 Carbon Dioxide 25 mmol/L (22-29) 01/13/22 20:00 Anion Gap 14.9 (5-19) 01/13/22 20:00 BUN 22 mg/dL (8-23) 01/13/22 20:00 Creatinine 0.9 mg/dL (0.7-1.2) 01/13/22 20:00 GFR Calculation 84.2 mL/min (90-130) L 01/13/22 20:00 Glucose 80 mg/dL (65-115) 01/13/22 20:00 Calculated Osmolality 274 mOsm/kg (285-295) L 01/13/22 20:00 Calcium 9.0 mg/dL (8.5-10.5) 01/13/22 20:00 Magnesium 1.8 mg/dL (1.7-2.3) 01/13/22 20:00 Total Bilirubin 0.2 mg/dL (0.15-1.2) 01/13/22 20:00 AST 12 U/L (0-40) 01/13/22 20:00 ALT 11 U/L (0-41) 01/13/22 20:00 Alkaline Phosphatase 92 IU/L (40-130) 01/13/22 20:00 Troponin T Baseline 27 ng/L (0-15) H 01/13/22 20:00 Troponin T 120 Minute 23.58 ng/L (0-15) H 01/13/22 21:40 Delta Troponin T -3.42 ABS# (0-10) L 01/13/22 21:40 NT-Pro-B Natriuret Pep 1732 pg/mL (0-125) H 01/13/22 20:00 Total Protein 7.0 g/dL (6.6-8.7) 01/13/22 20:00 Albumin 4.2 g/dL (3.5-5.2) 01/13/22 20:00 Globulin 2.8 g/dL (1.3-4.6) 01/13/22 20:00 TSH 2.35 uIU/mL (0.27-4.20) 01/13/22 20:00 EKG Data EKG 1: I personally reviewed and interpreted this EKG as follows: EKG interpretation date: 01/13/22 EKG interpretation time: 19:02 Interpretation: Twelve-lead EKG shows a regular rhythm at a rate of 92. WV interval 171, QRS duration 100, QTc 402. Normal axis. Interpretation: Sinus rhythm. Nonspecific ST segment abnormalities. Other EKG comments: Chest X-Ray 01/13/22 18:38 IMPRESSION: Emphysematous changes, negative for infiltrate Discharge Plan Discharge Patient Disposition: Home Clinical Impression: Arrhythmia Condition: Stable Prescriptions: No Action mirtazapine [Remeron] 15 mg tablet 15 mg PO .QHS Qty: 90 2RF Rx Instructions: Take one tablet at bedtime buspirone 15 mg tablet 30 mg PO BID Qty: 120 4RF Rx Instructions: Take two tablets twice per day bupropion HCl 300 mg tablet extended release 24 hr 300 mg PO QAM Qty: 90 2RF Rx Instructions: Take one tablet every morning aripiprazole 15 mg tablet 15 mg PO .morning Qty: 90 2RF Rx Instructions: Take one tablet every morning gabapentin 300 mg capsule 300 mg PO TID 0RF tamsulosin 0.4 mg capsule 0.8 mg PO BEDTIME 0RF Rx Instructions: TAKES 2 PILLS AT HS ascorbic acid (vitamin C) 500 mg capsule 500 mg PO DAILY 0RF ferrous sulfate 325 mg (65 mg iron) tablet 325 mg PO BID 0RF cilostazol 100 mg tablet 100 mg PO BID 0RF Hold Instructions: Resume on 08/06/21. hold until you see cardiology metformin 850 mg tablet 850 mg PO TID 0RF Hold Instructions: Resume on 04/17/21. pravastatin 80 mg tablet 80 mg PO DAILY 0RF finasteride 5 mg tablet 5 mg PO DAILY 0RF Prilosec 10 mg susp,delayed release for recon 20 mg PO BID 0RF fludrocortisone 0.1 mg tablet 0.1 mg PO .COMPLEX Qty: 90 3RF Rx Instructions: 0.1 mg PO take one tab every other day; docusate sodium 100 mg Tablet 100 mg PO BID PRN (Reason: Constipation) 0RF Discharge Orders: Discharge ED (Routine); Ordered 01/13/22 Ordered By: James Reaves Other Ambulatory Orders: ECG holter monitor 14 Days (Routine) Timeframe: [id number] Facility: [facility] - Location: Radiology Ordered By: James Reaves Discharge Diet: Usual diet Discharge Activity: Resume usual activity Patient Instructions: Sick Sinus Syndrome (ED) Activity Restrictions/Additional Instructions: Thank you for visiting the emergency department. You were seen and evaluated for arrhythmia. The exact cause of your symptoms is unclear, no arrhythmia was observed on the cardiac nurse specialist during ED stay. One consideration is a condition referred to as sick sinus rhythm. Though other causes of arrhythmia can be present. I will order an outpatient Holter monitor. Please follow-up with a high school industrial arts teacher and primary care provider. Please return to the emergency department for worsening symptoms, syncope, chest pain, shortness of breath, or anything else that you're concerned about a feel needs emergency department evaluation. Coding Level of Care Code ED Ground Host/Hostess for Becca Oliver Exam Comprehensive
[2022-01-13 19:43] VITALS: BP 156/88; PULSE 85; RESP 17; O2SAT 85
[2022-01-13 20:14] LABS: Basophils # 0.1 10^3/uL (0.0-0.1); Basophils % 0.7 %; Eosinophils # 0.6 10^3/uL (0.0-0.8); Eosinophils % 7.4 %; Hematocrit 33.5 % (42.0-52.0); Hemoglobin 10.9 g/dL (11.7-16.6); Lymphocytes # 2.2 10^3/uL (0.8-4.8); Lymphocytes % 26.5 %; Mean Corpuscular HGB Conc 32.5 g/dL (30.0-36.0); Mean Corpuscular Hemoglobin 29.9 pg (28.0-34.0); Mean Corpuscular Volume 91.8 fl (80-94); Mean Platelet Volume 8.9 fL (7.4-10.4); Monocytes # 0.6 10^3/uL (0.2-0.9); Monocytes % 6.7 %; Neutrophils # 4.83 10^3/uL (1.8-7.7); Neutrophils % 58.3 %; Nucleated Red Blood Cells % 0 %; Platelet Count 259 10^3/cmm (130-400); Red Blood Count 3.65 10^6/uL (4.1-5.3); Red Cell Distribution Width 13.3 % (12.1-15.1); White Blood Count 8.3 10^3/uL (4.0-10.0)
[2022-01-13 20:34] LABS: Troponin(5th) Baseline 27 ng/L (0-15)
[2022-01-13 20:35] LABS: Alanine Aminotransferase 11 U/L (0-41); Albumin Level 4.2 g/dL (3.5-5.2); Alkaline Phosphatase 92 IU/L (40-130); Anion Gap 14.9 (5-19); Aspartate Amino Transferase 12 U/L (0-40); Blood Urea Nitrogen 22 mg/dL (8-23); Carbon Dioxide 25 mmol/L (22-29); Chloride 96 mmol/L (98-107); Globulin 2.8 g/dL (1.3-4.6); Glomerular Filtration Rate 84.2 mL/min (90-130); Glucose 80 mg/dL (65-115); Magnesium 1.8 mg/dL (1.7-2.3); Osmolality Calculated 274 mOsm/kg (285-295); Potassium 4.9 mmol/L (3.5-5.1); Sodium 131 mmol/L (136-145); Total Bilirubin 0.2 mg/dL (0.15-1.2)
--- NOTE | 2022-01-13 20:38 | ECG_ITS ---
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 Measurements Intervals [place] Rate: 92 P: 71 NH: 171 QRS: 96 QRSD: 100 T: 78 QT: 352 QTc: 436 Interpretive Statements SINUS RHYTHM BORDERLINE RIGHT AXIS DEVIATION [QRS AXIS > 90] Compared to ECG 07/21/2021 03:34:08 Sinus tachycardia no longer present ST (T wave) deviation no longer present Electronically Signed On 01-13-2022 21:25:00 MACHINE RIVETER by Leigh Hamm M.D. [id number]
[2022-01-13 21:09] LABS: Thyroid Stimulating Hormone 2.35 uIU/mL (0.27-4.20)
[2022-01-13 21:29] LABS: NT Pro B Type Natriuretic Pept 1732 pg/mL (0-125)
[2022-01-13 22:08] LABS: Troponin 5 2HR 23.58 ng/L (0-15)
[2022-01-13 22:09] LABS: Troponin 5 2HR Delta -3.42 ABS# (0-10)
--- NOTE | 2022-01-14 12:12 | DCPLANNER ---
Addendum entered by Rosey Geronimo 01/27/22 14:56: Patient had a follow up appointment scheduled for 01.27.22 for a halter monitor and a follow up appointment with [facility] - patient attended both appointments. Addendum entered by Rosey Geronimo 01/22/22 14:54: Patient has a follow up appointment scheduled for Thursday, January 27, 2022 at 1:00 with HAT AND CAP PARTS CUTTER HAND, Leonor Brito at [facility], patient will be fitted for a 48 hour halter monitor. Clinic will call patient with appointment information. Original Note: manager search engine had message to schedule a follow up appointment for patient with [facility] and a 48 hour halter monitor. manager search engine called [facility], spoke with Camille, gave clinic patients information. manager search engine will fax order for halter monitor to [facility]. Clinic will schedule monitor and followup appointment with Leonor for the same time, and will call patient with the appointment information.
== END 2022-01-14 00:37 | disposition home or self-care (01) ==
PROVIDERS: Nurse Practitioner Family; Emergency Provider Emergency Medicine
DX: I49.9 Cardiac arrhythmia, unspecified (principal); Z79.84 Long term (current) use of oral hypoglycemic drugs; J44.9 Chronic obstructive pulmonary disease, unspecified; E11.9 Type 2 diabetes mellitus without complications; E78.5 Hyperlipidemia, unspecified; I10 Essential (primary) hypertension
CPT/HCPCS: 36415; 71045; 80053; 83735; 83880; 84443; 84484; 85025; 93005; 96365; 99283; J3475

== ENCOUNTER → 2022-01-25 13:47 | Outpatient (BNVA) | payer MEDICARE, MEDICAID, SELFPAY | PROVIDERS: Visit Provider Social Worker Clinical | DX: F25.1 Schizoaffective disorder, depressive type (principal) | CPT/HCPCS: 90834 ==

== ENCOUNTER → 2022-01-27 12:30 | Outpatient (BNVA) | payer MEDICARE, MEDICAID, SELFPAY | PROVIDERS: Visit Provider Nurse Practitioner Family | DX: I49.5 Sick sinus syndrome (principal); I10 Essential (primary) hypertension; F17.200 Nicotine dependence, unspecified, uncomplicated | CPT/HCPCS: 99213 ==

== ENCOUNTER 2022-02-08 07:22 | Outpatient (CLI) | payer MEDICARE, MEDICAID, SELFPAY ==
--- NOTE | 2022-02-08 08:04 | NMCV_ITS ---
NM gómez perf SPECT r/s* [id number] Hussein Fitch Age: 67 Gender: M : 1955 Exam Date: 02/08/2022 09:06 Ordering Phys: Kashif Mejias M.D ([email or web address]) Technologist: CHRISTIN Gomez Exam Location: [facility] Indications: CHEST PAIN STRESS TEST Please [facility] IMAGE PROTOCOL Rest/Stress 1 Lexiscan Day Radiopharmaceutical Dose (mCi) Administration Site Administered by Rest: Tc-99m 11.0 IV CHRISTIN Dean Sestamibi Stress:Tc-99m 32.7 IV CHRISTIN Dean Sestamibi Rest: 08-Feb-2022 60 Discovery 630 Stress: 08-Feb-2022 30 Discovery 630 0.4mg Lexiscan. Images obtained in supine and prone position. SPECT RESULTS Technical Quality: Excellent Raw Data Analysis: Normal Image Corrections: No attenuation or motion correction applied Summed Stress Score: 4 Summed Rest Score: 1 Summed Difference Score: 3 PERFUSION FINDINGS There is a small area of partially reversible perfusion defect in the apical, apical lateral and apical anterolateral malik. This represents prior infarct with jose luis-infarct ischemia in these territories FUNCTIONAL RESULTS (calculated via Gated SPECT) Stress Image LV EF (%): 50 Stress EDV (mL):153 TID: 1.1 Stress ESV (mL):77 FUNCTIONAL FINDINGS: There is normal left ventricular systolic function. IMPRESSIONS 1. Abnormal myocardial perfusion imaging with infarct and periinfarct ischemia noted in the apical, apical anterior and anterolateral malik. 2. LV systolic function is normal Kashif Mejias MD (Electronically Signed) Final Date: 15 February 2022 14:51 S
--- NOTE | 2022-02-08 08:04 | ECG_ITS ---
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 Interpretive Statements NAME OF STUDY: LEXISCAN SESTAMIBI STRESS TEST INDICATION: [Chest Pain, ] Procedure: At the baseline, the blood pressure was 164/89 mmHg with a heart rate of 80 bpm. The electrocardiogram showed normal sinus rhythm, normal axis with normal ST and T's. The Lexiscan was infused over a period of 20 seconds. A total of 0.4 mg of Lexiscan was infused. The stress phase was continued for a total of 5 minutes. Heart rate was at the end of stress phase was 100 bpm and a blood pressure of 198/80 mmHg. The EKG at the peak infusion revealed since normal sinus rhythm with no significant ST-T wave changes. Sestamibi was injected 20 seconds after the Lexiscan infusion. Blood pressure at the end of recovery phase was 160/80 mmHg with a heart rate of 97 bpm. Conclusion: 1. Normal EKG response to Lexiscan infusion 2. No Lexiscan induced chest pain or cardiac arrhythmia. 3. Normal blood pressure and heart rate response. 4. Sestamibi/sestamibi perfusion scan pending; see separate report. Electronically Signed On 03-06-2022 13:02:35 CDT by Kashif Mejias M.D. [id number]
[2022-02-08 08:40] VITALS: BMI 19.3
[2022-02-08 10:16] VITALS: BP 160/80; PULSE 97
[2022-02-08] MEDS: regadenoson 0.4 Mg/5 ml Syringe IVP (10:16)
== END 2022-02-08 07:23 | disposition home or self-care (01) ==
LOC: RAD 07:23 → CDL 08:08
PROVIDERS: Visit Provider Internal Medicine
DX: R07.9 Chest pain, unspecified (principal); R06.02 Shortness of breath
CPT/HCPCS: 78452; 93017; A9500; J2785

== ENCOUNTER → 2022-02-18 12:41 | Outpatient (BNVA) | payer MEDICARE, MEDICAID, SELFPAY | PROVIDERS: Visit Provider Social Worker Clinical | DX: F25.1 Schizoaffective disorder, depressive type (principal) | CPT/HCPCS: 90834 ==

== ENCOUNTER → 2022-02-22 12:29 | Outpatient (BNVA) | payer MEDICARE, MEDICAID, SELFPAY | PROVIDERS: Visit Provider Internal Medicine | DX: I73.9 Peripheral vascular disease, unspecified (principal); E11.9 Type 2 diabetes mellitus without complications; I10 Essential (primary) hypertension; F17.200 Nicotine dependence, unspecified, uncomplicated | CPT/HCPCS: 80048; 83880; 85025; 99214 ==

== ENCOUNTER → 2022-03-22 12:39 | Outpatient (BNVA) | payer MEDICARE, MEDICAID, SELFPAY | PROVIDERS: Visit Provider Social Worker Clinical | DX: F25.1 Schizoaffective disorder, depressive type (principal) | CPT/HCPCS: 90834 ==

== ENCOUNTER 2022-03-24 12:20 | Outpatient (CLI) | payer MEDICARE, MEDICAID, SELFPAY ==
[2022-03-24 13:06] LABS: Basophils # 0.1 10^3/uL (0.0-0.1); Eosinophils # 0.5 10^3/uL (0.0-0.8); Eosinophils % 5.9 %; Hematocrit 34.2 % (42.0-52.0); Hemoglobin 11.1 g/dL (11.7-16.6); Lymphocytes # 1.7 10^3/uL (0.8-4.8); Lymphocytes % 21.8 %; Mean Corpuscular HGB Conc 32.5 g/dL (30.0-36.0); Mean Corpuscular Hemoglobin 29.4 pg (28.0-34.0); Mean Corpuscular Volume 90.7 fl (80-94); Mean Platelet Volume 9.4 fL (7.4-10.4); Monocytes # 0.5 10^3/uL (0.2-0.9); Monocytes % 6.9 %; Neutrophils % 63.8 %; Nucleated Red Blood Cells % 0 %; Platelet Count 289 10^3/cmm (130-400); Red Blood Count 3.77 10^6/uL (4.1-5.3); Red Cell Distribution Width 13.5 % (12.1-15.1); White Blood Count 7.8 10^3/uL (4.0-10.0)
[2022-03-24 14:13] LABS: Alanine Aminotransferase 9 U/L (0-41); Alkaline Phosphatase 95 IU/L (40-130); Anion Gap 16.2 (5-19); Aspartate Amino Transferase 11 U/L (0-40); Blood Urea Nitrogen 20 mg/dL (8-23); Calcium 8.7 mg/dL (8.5-10.5); Carbon Dioxide 26 mmol/L (22-29); Chloride 96 mmol/L (98-107); Ferritin 98 ng/mL (30-400); Globulin 3.5 g/dL (1.3-4.6); Glomerular Filtration Rate 74.5 mL/min (90-130); Glucose 65 mg/dL (65-115); Iron 49 ug/dL (59-158); Osmolality Calculated 277 mOsm/kg (285-295); Percent Saturation 17.1 % (20-50); Potassium 5.2 mmol/L (3.5-5.1); Sodium 133 mmol/L (136-145); Total Bilirubin 0.2 mg/dL (0.15-1.2); Total Iron Binding Capacity 285 mcg/dl; Total Protein 7.5 g/dL (6.6-8.7); Unsaturated Iron Binding 236 ug/dL (112-347)
== END 2022-03-24 12:21 | disposition home or self-care (01) ==
PROVIDERS: Visit Provider Internal Medicine Medical Oncology
DX: D50.0 Iron deficiency anemia secondary to blood loss (chronic) (principal); E11.42 Type 2 diabetes mellitus with diabetic polyneuropathy; Z79.4 Long term (current) use of insulin; Z79.899 Other long term (current) drug therapy
CPT/HCPCS: 36415; 80053; 82728; 83540; 83550; 85025

== ENCOUNTER 2022-03-25 10:08 | Outpatient (CLI) | payer MEDICARE, MEDICAID, SELFPAY ==
--- NOTE | 2022-03-26 12:24 | ONC FU_ITS ---
Renee Souza Progress Note Patient: Hussein Fitch Unit #: [id number]: 1955 Dicatated By: Renee Souza N.P.Date of Visit:Mar 25, 2022 Onc MED Follow-up/Prog Note Chief Complaint: Anemia. History of Present Illness: This is a 66 year-old man with anemia, at least some complement of which has been due to iron deficiency. In May 2013 he was admitted to the hospital with severe anemia, hemoglobin at 5.4 g with hematocrit 15.6%. The red cell indices were in the upper normal range. The white blood cell count was normal at 6900, and the platelet count was normal at 280,000. The uncorrected reticulocyte count was 7.7%. B12 and folate levels were normal. The serum iron was normal at 101 mcg/dL with transferrin saturation 24.9%. He was transfused a total of 4 units of packed red blood cells. He did undergo upper and lower GI endoscopy. The only abnormal finding was mild gastritis. He apparently had a previous history of GI bleeding due to peptic ulcer disease. Despite the negative endoscopy findings, the clinical picture appeared to be most consistent with acute GI blood loss. However, he also had undergone a left femoropopliteal bypass procedure a little over a month prior to that admission. Dr. Mehta had seen him initially in June 2013. At that point his transferrin saturation was low at 11.4%, and I did opt to have him start parenteral iron replacement with Venofer, though his hemoglobin was just mildly decreased at 11.9 g. He did have 3/3 stools come back heme-positive. On 08/27/2019 his hemoglobin had dropped back down to 5.4 g, and he was again transfused PRBC. He required further transfusions in December 2013, and January 2014 he was again given parenteral iron replacement with Venofer. In May 2014 he underwent redo left femoropopliteal bypass. In September 2014 he was admitted to the hospital again with severe anemia, hemoglobin 4.5 g. That episode occurred while on warfarin with supratherapeutic INR. His laboratory studies from 07/23/2019 showed recurrence of anemia with hemoglobin 8.8 g and hematocrit 26.8%. The red cell indices were in the low normal range. His serum iron studies showed transferrin saturation low at 8%. He also had a low B12 level at 173 pg/mL. He began B12 replacement. His stool hemoccult on 08/01/2019 was reported to be positive. He had undergone repeat EGD and colonoscopy by Dr. Garrett. The EGD showed mild gastritis. There were no abnormalities noted on the colonoscopy. There was no source of GI blood loss identified. Dr. Mehta had seen him for a follow-up visit on 08/13/2019. His hemoglobin was down slightly but adequate at 10.0 g. His transferrin saturation was low at 5.8% with ferritin 17.0 ng/mL, consistent with iron deficiency. He was then given parenteral iron replacement with 2 infusions of Injectafer. A follow-up CBC on 10/02/2019 was unchanged with hemoglobin 10.2 g, white blood cell count 6500, and platelet count 287,000. His transferrin saturation, though, had increased to 28.9% and his ferritin had increased to 356 ng/mL. As of his follow-up visit in November 2019 he remained mildly anemic, hemoglobin 10.5 g, but with normal transferrin saturation at 31%. His repeat laboratory studies on 07/03/2020 showed stable hemoglobin at 10.3 g, but his serum iron studies show low transferrin saturation of 13%, consistent with iron deficiency. His ferritin was in the low normal range. As such, he was given additional parenteral iron replacement with 2 infusions of Injectafer. He was then seen for a follow-up visit on 08/18/2020. He was still moderately anemic, hemoglobin 9.6 g. His serum iron studies showed normal transferrin saturation of 42.4%, so that the anemia did not appear to be due to iron deficiency. His bone marrow aspiration/biopsy on 12/04/2020 showed normal cellularity estimated at 20 to 40%. There were no overt dysplastic or megaloblastic changes, and there was no evidence of an infiltrative process. There was adequate storage iron present. The FISH panel for MDS was unrevealing. Overall, the marrow showed no diagnostic abnormality. His other medical illnesses include hypertension, dyslipidemia, type 2 diabetes, peripheral arterial disease, and COPD. He has had multiple surgeries on his right arm due to an MRSA infection. He also had 2 surgeries on his right foot. He underwent left fempop bypass in March 2013 and redo left fempop bypass in May 2014. He also had a previous angioplasty/stent procedure to the right leg. His prior GI evaluations included EGD and colonoscopy in May 2013, capsule endoscopy in April 2014, and EGD in October 2016. He has a history of smoking for close to 50 years, and he continues to smoke 1 pack of cigarettes daily. INTERIM HISTORY: On 07/21/2021 he was admitted to the hospital after presenting to the emergency room with lightheadedness. He was severely anemic, hemoglobin 5.9 g and hematocrit 19.2%. The red cell indices were normal. The white blood cell count was 6700 and the platelet count was 334,000. His serum iron studies showed no normal transferrin saturation at 27%, but the ferritin was low at 22 ng/mL, suggestive of iron deficiency. His EGD showed a moderate hiatal hernia with mild diffuse gastritis. There was no obvious source for GI blood loss. He was transfused PRBC. He had been on anticoagulation with apixaban, and that was stopped. His repeat CBC at discharge showed hemoglobin up to 8.[address] Mehta had seen him for a follow-up visit on 07/30/2021. His hemoglobin remained low at 8.9 g. His serum iron studies show low transferrin saturation at 5.3% and the ferritin was low at 31 ng/mL, consistent with iron deficiency. As such he was given parenteral iron replacement with 1000 mg of Venofer, administered in 200 mg increments over a period from 08/06/2021 to 08/24/2021. He tolerated it well. He did show some response with his repeat CBC on 09/22/2021 showing an increase in the hemoglobin to 10.4 g with transferrin saturation normal at 24.8%. As of 10/26/2021 there was further increase in the hemoglobin to 11.3 g. Patient presents today for follow-up. He states he has been feeling pretty good. He denies weakness or fatigue. His appetite has been good. He denies fever, chills, night sweats. No sinus drainage or mouth sores. No shortness of breath or wheezing. He does have a chronic cough. He has occasional chest pain which he takes nitro for. He denies nausea or vomiting. He has been having diarrhea for approximately 2 weeks. He has not noticed any blood in the stool. No abdominal pain. He denies joint pain today. No headaches or dizziness. Review Of Symptoms: See above. Past Medical History: Anemia (Treated) Anxiety (Treated) Aortic stenosis (Treated) Benign prostatic hypertrophy Chronic obstructive pulmonary disease Diabetes type II (Treated) Gastroesophageal reflux disease (Treated) History of MRSA infection of the right arm Hypertension Peripheral artery occlusive disease Peripheral neuropathy Vitamin B12 deficiency Past Surgical History: Angioplasty/stent procedure to right leg Colonoscopy Multiple right arm surgeries for MRSA Right foot surgery x 2 for diabetic foot ulcer Flu Vaccine 2020 in 2020 Covid vaccine #2 in 2020 Covid vaccine #1 in 2020 Redo left fempop bypass in 2013 Left fempop bypass in 2012 Allergies: No Known Allergies. Medications: Abilify 1 Tablet (of 15 mg) Oral daily buPROPion HCl ER (XL) 1 Tablet (of 300 mg) Tablet SR 24 HR Oral daily busPIRone HCl 1 Tablet (of 15 mg) Oral daily Colace 1 Capsule (of 100 mg) Oral b.i.d. Cyanocobalamin 1 Dose(s) (of 1000 mcg/mL) Injection q 30 days Ferrous Sulfate 1 Tablet (of 325 (65 fe) mg) Oral b.i.d. Finasteride 1 Tablet (of 5 mg) Oral daily Fludrocortisone Acetate 1 Tablet (of 0.1 mg) Oral daily Gabapentin 1 Capsule (of 300 mg) Oral t.i.d. metFORMIN HCl 1 Tablet (of 850 mg) Oral t.i.d. Metoprolol Tartrate 1 Tablet (of 25 mg) Oral b.i.d. Mirtazapine 1 Tablet (of 15 mg) Oral daily Nitroglycerin Tablet, sublingual Sublingual PRN Pravastatin Sodium 1 (80 mg) Tablet Oral at bedtime PriLOSEC OTC 1 Tablet (of 20 mg) Tablet, enteric coated Oral daily Sildenafil Citrate 1 Tablet (of 50 mg) Oral daily Tamsulosin HCl 2 Capsule (of 0.4 mg) Oral at bedtime Vitamin C 1 Capsule (of 500 mg) Oral daily Family History: Mr. Fitch's mother is alive: diabetes. Mr. Fitch's father at age 49: alcoholism, and diabetes, and heart disease. Mr. Fitch has 1 brother who is : lung cancer. He has 1 sister who is : bone cancer. Father age 49 with multiple illnesses including alcoholism with cirrhosis, diabetes, and heart disease. Mother is still living at age 94. She has COPD. A brother of lung cancer at age 63. He sister of bone cancer , also at age 63. Social History: Mr. Fitch is and he is a disabled. He is a daily smoker who has smoked 1.0 pack/day for 51 years. He quit drinking 7 years ago. He has indicated exposure to the following products: cigarettes. Mr. Fitch reports the following support systems: lives alone and lives in own house. He has a history of smoking 1 pack of cigarettes daily for 49 years. He has had alcohol use in the past, but he quit 4-5 years ago. Physical Examination: Performed on Mar 25, 2022 10:23: Height - 71.00 in, Weight - 140.0 lbs (LOW), BSA - 1.81 sq.m, BMI - 19.53, Temperature - 98.6 F, Pulse - 90 /min, Respiration - 16 /min, BP - 149/74 mm(hg) (HIGH), O2 Sat - 98 %, Pain - 0, and Fatigue - 0. Performance Status: 1 - No physically strenuous activity, but ambulatory and able to carry out light or sedentary work (e.g. office work, light house work). (ECOG) Constitutional Alert, cooperative, oriented. Mood and affect appropriate. Appears close to chronological age. Well nourished. Well developed. Respiratory Lungs are clear to auscultation without rhonchi or wheezing. Cardiovascular Regular rate and rhythm of heart without murmurs, gallops or rubs. Abdomen Non-tender, non-distended, no masses, ascites or hepatosplenomegaly. Good bowel sounds. No guarding or rebound tenderness. Musculoskeletal No tenderness or swelling, normal range of motion without obvious weakness. Psychiatric Alert and oriented times three. Coherent speech. Verbalizes understanding of our discussions today. Laboratory: Test performed on Mar 24, 2022 12:45 Ferritin 98 ng/mL Iron 49 mcg/dL Sodium 133 mmol/L Iron Binding Capacity (TIBC) 285 mcg/dl Potassium 5.2 mmol/L % Iron Saturation 17.1 % Chloride 96 mmol/L CO2 26 mmol/L UIBC 236 mcg/dL Anion Gap 16.2 BUN 20 mg/dL Creatinine 1.0 mg/dL Cr Clearance (Est) 65.1200 mL/min eGFR 74.5 mL/min Glucose 65 mg/dL Osmolality - Calculated 277 mOsm/kg Calcium 8.7 mg/dL Protein, Total 7.5 g/dL Albumin 4.0 g/dL Globulin 3.5 g/dL Bilirubin, Total 0.2 mg/dL ALT (SGPT) 9 U/L AST (SGOT) 11 U/L Alkaline Phosphatase 95 IU/L WBC 7.8 10 3/uL RBC 3.77 10 6/uL HGB 11.1 g/dL HCT 34.2 % MCV 90.7 fl MCH 29.4 pg MCHC 32.5 g/dL RDW 13.5 % Platelet Count 289 10 3/cmm MPV 9.4 fL Neutrophils 5.00 10 3/uL Lymphocytes 1.7 10 3/uL Monocytes 0.5 10 3/uL Eosinophils 0.5 10 3/uL Basophils 0.1 10 3/uL Neutrophil % 63.8 % Lymphocyte % 21.8 % Monocyte % 6.9 % Eosinophil % 5.9 % Basophils % 1.0 % NRBC % 0 % Impression: 1. Patient with recurrent episodes of severe anemia. At least some component has been due to iron deficiency associated with GI blood loss. 2. He also was found to have evidence of B12 deficiency, for which he started B12 replacement. 3. He has had chronic diarrhea, and he has had significant weight loss. 4. Hypertension. 5. Hyperlipidemia. 6. Type II diabetes. 7. Peripheral arterial disease. 8. COPD. 9. History of MRSA infections. 10. Benign prostatic hypertrophy. 11. Chronic anxiety. Plan: 1. Patient with recurrent episodes of severe anemia. It appears likely that he has at least some component of GI blood loss, but he also has some underlying chronic anemia of undetermined cause. In June 2021 he was hospitalized again with another episode of severe anemia, reportedly with positive stool Hemoccult. A specific source of GI blood loss was not determined. At his follow-up visit on 07/30/2021 he remained anemic with hemoglobin 8.9 g and his transferrin saturation and serum ferritin were consistent with iron deficiency. He was given a course of parenteral iron replacement with 5 infusions of Venofer, 1000 mg in total, completed on 08/24/2021. Today his hemoglobin remained stable at 11.1. His ferritin is 98. His iron has decreased some to 49 and his iron saturation is a little bit low at 17.1%. Due to him having diarrhea, we will obtain stool cultures. Patient will return to the clinic in 3 months with labs. 2. He has a slightly elevated potassium. It has improved since last visit. Medication list was reviewed and he is not currently on potassium supplements. We will continue to monitor. Signed By: Renee Souza N.P. <<Signature on File>>
== END 2022-03-25 10:09 | disposition home or self-care (01) ==
LOC: ONCMED 10:10
PROVIDERS: Visit Provider Nurse Practitioner Family
DX: D50.0 Iron deficiency anemia secondary to blood loss (chronic) (principal); K92.1 Melena; R19.7 Diarrhea, unspecified; R79.89 Other specified abnormal findings of blood chemistry; Z79.899 Other long term (current) drug therapy
CPT/HCPCS: 99214

== ENCOUNTER → 2022-03-29 12:45 | Outpatient (BNVA) | payer MEDICARE, MEDICAID, SELFPAY | PROVIDERS: Visit Provider Nurse Practitioner Psychiatric/Mental Health | DX: F25.1 Schizoaffective disorder, depressive type (principal); F17.210 Nicotine dependence, cigarettes, uncomplicated; Z79.899 Other long term (current) drug therapy | CPT/HCPCS: 99214 ==

== ENCOUNTER 2022-03-30 14:32 | Outpatient (CLI) | payer MEDICARE, MEDICAID, SELFPAY ==
--- NOTE | 2022-03-30 15:15 | USCV_ITS ---
Hussein Fitch Age: 67 Gender: M : 1955 Exam Date: 03/30/2022 15:00 Ordering Phys: Kashif Mejias M.D ([email or web address]) Technologist: Exam Location: [facility] [place] Indication: chest pain BP: 110 / 65 HR: 89 Rhythm: Sinus Technical Quality: Adequate MEASUREMENTS (Male / Female) Normal Values 2D ECHO LV Diastolic Diameter PLAX 4.8 cm 4.2 - 5.9 / 3.9 - 5.3 cm LV Systolic Diameter PLAX 2.8 cm IVS Diastolic Thickness 1.2 cm 0.6 - 1.0 / 0.6 - 0.9 cm IVS Systolic Thickness 1.6 cm LVPW Diastolic Thickness 1.3 cm 0.6 - 1.0 / 0.6 - 0.9 cm LVPW Systolic Thickness 1.2 cm LVOT Diameter 2.1 cm LV Ejection Fraction 2D Teich 72.1 % LV Ejection Fraction MOD 2C 44.5 % LV Ejection Fraction 2C AL 45.2 % LA Diameter 3.9 cm Aorta at Sinotubular Diameter 2.8 cm IVC Diameter 1.9 cm M-MODE Aortic Annulus Diameter 3.4 cm LA Ao Ratio MM 1.3 MV E Point Septal Separation 1.2 cm DOPPLER AV Peak Velocity 119.0 cm/s LVOT Peak Velocity 94.0 cm/s AV Area Cont Eq vti 2.9 cm squared AV Area Cont Eq pk 2.6 cm squared MV Area PHT 5.0 cm squared Mitral E to A Ratio 0.9 MV E' Velocity 44.5 cm/s Mitral E to MV E' Ratio 9.4 Mitral E to LV E' Lateral Ratio 8.9 Mitral E to LV E' Septal Ratio 10.1 TR Peak Velocity 248.0 cm/s TR Peak Gradient 24.6 mmHg TV Peak E Velocity 88.0 cm/s Right Atrial Pressure 3.0 mmHg Pulmonary Artery Systolic Pressu 27.6 mmHg PV Peak Velocity 101.0 cm/s FINDINGS Left Ventricle Normal left ventricular size. LV systolic function is mildly reduced with EF of 45-50%. Borderline hypokinetic inferior and anterolateral malik. Grade 1 diastolic dysfunction Right Ventricle The right ventricle is normal in size and function. Right Atrium The right atrium is normal in size. Left Atrium The left atrium is normal in size. Mitral Valve Structurally normal mitral valve without significant stenosis or prolapse. There is trace mitral regurgitation. Aortic Valve Structurally normal aortic valve without significant sclerosis or stenosis. There is no aortic regurgitation. Tricuspid Valve Structurally normal tricuspid valve without significant stenosis. Trace tricuspid regurgitation. Insufficient TR jet to calculate RVSP Pulmonic Valve Not well visualized Pericardium Normal pericardium without effusion. Aorta Normal ascending aorta dimension. CONCLUSIONS LV systolic function is mildly reduced with EF of 45-50%. Above mentioned regional wall motion abnormalities Grade 1 disatolic dysfunction Trace mitral regurgitation Trace tricuspid regurgitation Compared to prior echocardiogram from 07/22/2021, no significant changes are noted Kashif Mejias MD (Electronically Signed) Final Date: 10 Apr 2022 19:44 S
== END 2022-03-30 14:33 | disposition home or self-care (01) ==
PROVIDERS: Visit Provider Internal Medicine
DX: R07.9 Chest pain, unspecified (principal); R06.02 Shortness of breath; R19.7 Diarrhea, unspecified
CPT/HCPCS: 36415; 87493; 93306

== ENCOUNTER 2022-04-02 07:30 | Outpatient (CLI) | payer MEDICARE, MEDICAID, SELFPAY ==
--- NOTE | 2022-04-02 08:00 | USCV_ITS ---
Hussein Fitch Age: 67 Gender: M : 1955 Exam Date: 04/02/2022 07:57 Ordering Phys: Kashif Mejias M.D ([email or web address]) Technologist: David Rodriguez [place] [facility] [place]: hx of lt leg bypass grafts Risk Factors: Previous Vascular Surgery: RIGHT LEFT BP: 140.0 / 74.00 BP: 135.0/ 72.00 0 0 Waveform Velocity (cm/s) Velocity (cm/s) Waveform Monophasic 134.5 Iliac Prox Monophasic 115.8 Iliac Mid Monophasic 129.0 Iliac Distal Monophasic 197.0 HYDROGRAPHIC ENGINEER Monophasic 181.0 SFA Prox Monophasic 268.6 SFA Mid Monophasic 200.2 SFA Dist Monophasic 79.0 POP Monophasic 25.5 NEWSPAPER DELIVERY COUNSELOR 17.9 Monophasic Biphasic 25.0 DPA 17.9 Biphasic 0.5 JOSE ALEJANDRO 0.4 FINDINGS RT BRACH LT BRACH 140/74 135/72 RT NEWSPAPER DELIVERY COUNSELOR 70 RT DPA 65 LT NEWSPAPER DELIVERY COUNSELOR 55 LT DPA 55 ON LT SIDE [place] AND 1ST GRAFT ARE OCCLUDED 2ND GRAFT IS OPEN TO ANASTIMOSIS AT KNEE Moderate diffuse heterogeneous plaques in the right iliac and femoral arteries Monophasic and continuous waveforms in the infrapopliteal vessels in the right side. Heavy heterogeneous plaques in the left iliac and femoral arteries. Sluggish flow was noted in the proximal and mid iliac artery on the left side. No Doppler flow signals in the distal iliac, femoral and popliteal arteries. Monophasic and continuous waveforms in the left posterior tibial and dorsalis pedis arteries CONCLUSIONS 1. Abnormal resting JOSE ALEJANDRO on the right side, suggestive of moderately severe peripheral artery disease with features of collateral filling in the infrapopliteal vessels. Possible multisegmental disease. 2. Features of total occlusion of the distal iliac, femoral and popliteal artery on the left side. Sluggish flow in the posterior tibial and dorsalis pedis artery. One of the femoral- popliteal bypass grafts? Appears to be patent on the left side. No similar previous studies are available for comparison Dr Lila Marinelli MD [facility] (Electronically Signed) Final Date: 12 Apr 2022 14:16 S
== END 2022-04-02 07:31 | disposition home or self-care (01) ==
LOC: RAD 07:31
PROVIDERS: Visit Provider Internal Medicine
DX: I73.9 Peripheral vascular disease, unspecified (principal); R94.39 Abnormal result of other cardiovascular function study
CPT/HCPCS: 93925

== ENCOUNTER → 2022-04-16 07:47 | Outpatient (BNVA) | payer MEDICARE, MEDICAID, SELFPAY | PROVIDERS: Visit Provider Social Worker Clinical | DX: F25.1 Schizoaffective disorder, depressive type (principal) | CPT/HCPCS: 90834 ==

== ENCOUNTER → 2022-05-03 14:44 | Outpatient (BNVA) | payer MEDICARE, MEDICAID, SELFPAY | PROVIDERS: Visit Provider Podiatrist Foot & Ankle Surgery | DX: L84 Corns and callosities (principal); E11.42 Type 2 diabetes mellitus with diabetic polyneuropathy; I73.9 Peripheral vascular disease, unspecified; L60.3 Nail dystrophy | CPT/HCPCS: 11056; 11721 ==

== ENCOUNTER 2022-05-07 08:46 | Oncology outpatient (recurring) (ONCR) | payer MEDICARE, MEDICAID, SELFPAY ==
--- NOTE | 2022-05-07 09:05 | PC.NURSE ---
peripheral labs drawn via venipuncture to R AC. Pressure dressing to site. pt given supplies to collect stool sample for c.diff PCR. pt given instructions on collection and return of sample. pt and spouse verbalized understanding.
[2022-05-07 09:24] LABS: Basophils # 0.1 10^3/uL (0.0-0.1); Basophils % 0.6 %; Eosinophils # 0.4 10^3/uL (0.0-0.8); Eosinophils % 4.7 %; Hematocrit 31.4 % (42.0-52.0); Hemoglobin 10.7 g/dL (11.7-16.6); Lymphocytes # 1.9 10^3/uL (0.8-4.8); Lymphocytes % 21.2 %; Mean Corpuscular HGB Conc 34.1 g/dL (30.0-36.0); Mean Corpuscular Hemoglobin 29.4 pg (28.0-34.0); Mean Corpuscular Volume 86.3 fl (80-94); Mean Platelet Volume 9.3 fL (7.4-10.4); Monocytes # 0.5 10^3/uL (0.2-0.9); Monocytes % 6.2 %; Neutrophils # 5.88 10^3/uL (1.8-7.7); Nucleated Red Blood Cells % 0 %; Platelet Count 291 10^3/cmm (130-400); Red Blood Count 3.64 10^6/uL (4.1-5.3); Red Cell Distribution Width 13.3 % (12.1-15.1); White Blood Count 8.8 10^3/uL (4.0-10.0)
[2022-05-07 09:38] LABS: Alanine Aminotransferase 9 U/L (0-41); Albumin Level 3.9 g/dL (3.5-5.2); Alkaline Phosphatase 97 IU/L (40-130); Anion Gap 11.9 (5-19); Aspartate Amino Transferase 10 U/L (0-40); Blood Urea Nitrogen 20 mg/dL (8-23); Calcium 8.9 mg/dL (8.5-10.5); Carbon Dioxide 28 mmol/L (22-29); Chloride 97 mmol/L (98-107); Glomerular Filtration Rate 74.5 mL/min (90-130); Glucose 121 mg/dL (65-115); Osmolality Calculated 278 mOsm/kg (285-295); Potassium 4.9 mmol/L (3.5-5.1); Sodium 132 mmol/L (136-145); Total Bilirubin 0.2 mg/dL (0.15-1.2); Total Protein 6.9 g/dL (6.6-8.7)
[2022-05-07 10:45] LABS: Ferritin 96 ng/mL (30-400); Iron 33 ug/dL (59-158); Total Iron Binding Capacity 273 mcg/dl; Unsaturated Iron Binding 240 ug/dL (112-347)
== END 2022-05-27 23:59 | disposition home or self-care (01) ==
PROVIDERS: Visit Provider Nurse Practitioner Family
DX: A04.72 Enterocolitis due to Clostridium difficile, not specified as recurrent (principal); E11.42 Type 2 diabetes mellitus with diabetic polyneuropathy; D64.9 Anemia, unspecified
CPT/HCPCS: 36415; 80053; 82728; 83540; 83550; 85025; 87493

== ENCOUNTER → 2022-05-13 12:41 | Outpatient (BNVA) | payer MEDICARE, MEDICAID, SELFPAY | PROVIDERS: Visit Provider Social Worker Clinical | DX: F25.1 Schizoaffective disorder, depressive type (principal) | CPT/HCPCS: 90834 ==

== ENCOUNTER → 2022-05-24 13:59 | Outpatient (BNVA) | payer MEDICARE, MEDICAID, SELFPAY | PROVIDERS: PCP Family Medicine; Visit Provider Internal Medicine | DX: I73.9 Peripheral vascular disease, unspecified (principal); E11.9 Type 2 diabetes mellitus without complications; J44.9 Chronic obstructive pulmonary disease, unspecified; I10 Essential (primary) hypertension; I95.9 Hypotension, unspecified; F17.200 Nicotine dependence, unspecified, uncomplicated; Z79.84 Long term (current) use of oral hypoglycemic drugs | CPT/HCPCS: 99214 ==

== ENCOUNTER → 2022-06-01 15:32 | Outpatient (BNVA) | payer MEDICARE, MEDICAID, SELFPAY | PROVIDERS: PCP Family Medicine; Visit Provider Podiatrist Foot & Ankle Surgery | DX: I73.9 Peripheral vascular disease, unspecified (principal); L84 Corns and callosities; E11.42 Type 2 diabetes mellitus with diabetic polyneuropathy; L60.3 Nail dystrophy; E11.8 Type 2 diabetes mellitus with unspecified complications | CPT/HCPCS: 11056; 11721; 17110 ==

== ENCOUNTER → 2022-06-24 14:49 | Outpatient (BNVA) | payer MEDICARE, MEDICAID, SELFPAY | PROVIDERS: PCP Family Medicine; Visit Provider Podiatrist Foot & Ankle Surgery | DX: L84 Corns and callosities (principal); I73.9 Peripheral vascular disease, unspecified; E11.42 Type 2 diabetes mellitus with diabetic polyneuropathy; L60.3 Nail dystrophy; E11.8 Type 2 diabetes mellitus with unspecified complications | CPT/HCPCS: 11056 ==

== ENCOUNTER 2022-06-28 10:18 | Outpatient (CLI) | payer MEDICARE, MEDICAID, SELFPAY ==
--- NOTE | 2022-06-28 10:32 | CT_ITS ---
WS: [id number] LDCT LUNG CANCER SCREENING TECHNIQUE: Noncontrast CT of the chest with coronal and sagittal reformatted images. CLINICAL INFORMATION: ENCOUNTER FOR SCREENING FOR MALIGNANT NEOPLASM OF RESPIRATOR COMPARISON: CT 2019 DLP: 82.89 mGy.cm DIvol: Mean CTDIvol: 1.60 (mGy) All CT scans at [facility] use at least one of these dose optimization techniques: automat ed exposure control; mA and/or kV adjustment per patient size (includes targeted exams where dose is matched to clinical indication); or iterative reconstruction. FINDINGS: Moderate chronic emphysematous changes. Biapical fibrosis. No acute pulmonary infiltrates. No focal p neumonia. Chronic interstitial fibrosis in the RIGHT lower lobe superior segment. Normal caliber thor acic aorta. Aortic calcification. Coronary calcification. No mediastinal or hilar lymphadenopathy. Adrenal glands are normal. CT/CT lung screening [id number] IMPRESSION: LUNG-RADS: 1-Negative FOLLOW UP: 12 Month: Continue annual screening with LDCT
== END 2022-06-28 10:19 | disposition home or self-care (01) ==
LOC: RAD 10:18
PROVIDERS: PCP Family Medicine; Visit Provider Family Medicine
DX: Z12.2 Encounter for screening for malignant neoplasm of respiratory organs (principal); F17.210 Nicotine dependence, cigarettes, uncomplicated
CPT/HCPCS: 71271

== ENCOUNTER 2022-07-02 12:38 | Oncology outpatient (recurring) (ONCR) | payer MEDICARE, MEDICAID, SELFPAY ==
[2022-07-01 12:40] LABS: Basophils # 0.1 10^3/uL (0.0-0.1); Basophils % 0.8 %; Eosinophils # 0.5 10^3/uL (0.0-0.8); Eosinophils % 5.7 %; Hematocrit 32.8 % (42.0-52.0); Hemoglobin 11.2 g/dL (11.7-16.6); Lymphocytes # 1.7 10^3/uL (0.8-4.8); Lymphocytes % 18.8 %; Mean Corpuscular HGB Conc 34.1 g/dL (30.0-36.0); Mean Corpuscular Hemoglobin 29.8 pg (28.0-34.0); Mean Corpuscular Volume 87.2 fl (80-94); Mean Platelet Volume 9.3 fL (7.4-10.4); Monocytes # 0.6 10^3/uL (0.2-0.9); Monocytes % 6.2 %; Neutrophils # 6.05 10^3/uL (1.8-7.7); Neutrophils % 67.9 %; Nucleated Red Blood Cells % 0 %; Platelet Count 264 10^3/cmm (130-400); Red Blood Count 3.76 10^6/uL (4.1-5.3); Red Cell Distribution Width 13.5 % (12.1-15.1); White Blood Count 8.9 10^3/uL (4.0-10.0)
[2022-07-01 13:01] LABS: Alanine Aminotransferase 6 U/L (0-41); Albumin Level 4.1 g/dL (3.5-5.2); Alkaline Phosphatase 79 IU/L (40-130); Anion Gap 13.6 (5-19); Aspartate Amino Transferase 13 U/L (0-40); Blood Urea Nitrogen 20 mg/dL (8-23); Calcium 9.1 mg/dL (8.5-10.5); Carbon Dioxide 28 mmol/L (22-29); Chloride 97 mmol/L (98-107); Ferritin 64 ng/mL (30-400); Globulin 2.8 g/dL (1.3-4.6); Glomerular Filtration Rate 84.2 mL/min (90-130); Glucose 116 mg/dL (65-115); Iron 78 ug/dL (59-158); Osmolality Calculated 282 mOsm/kg (285-295); Percent Saturation 25.9 % (20-50); Potassium 4.6 mmol/L (3.5-5.1); Sodium 134 mmol/L (136-145); Total Bilirubin 0.2 mg/dL (0.15-1.2); Total Iron Binding Capacity 301 mcg/dl; Total Protein 6.9 g/dL (6.6-8.7); Unsaturated Iron Binding 223 ug/dL (112-347)
== END 2022-07-28 23:59 | disposition home or self-care (01) ==
PROVIDERS: PCP Family Medicine; Visit Provider Internal Medicine Medical Oncology
DX: A04.72 Enterocolitis due to Clostridium difficile, not specified as recurrent (principal)
CPT/HCPCS: 36415; 80053; 82728; 83540; 83550; 85025; 87493; G0463

== ENCOUNTER → 2022-07-28 15:27 | Outpatient (BNVA) | payer MEDICARE, MEDICAID, SELFPAY | PROVIDERS: PCP Family Medicine; Visit Provider Podiatrist Foot & Ankle Surgery | DX: I73.9 Peripheral vascular disease, unspecified (principal); L85.8 Other specified epidermal thickening; L84 Corns and callosities; E11.42 Type 2 diabetes mellitus with diabetic polyneuropathy; L60.3 Nail dystrophy; E11.8 Type 2 diabetes mellitus with unspecified complications; Z79.84 Long term (current) use of oral hypoglycemic drugs | CPT/HCPCS: 17110 ==

== ENCOUNTER → 2022-07-30 09:21 | Outpatient (BNVA) | payer MEDICARE, MEDICAID, SELFPAY | PROVIDERS: PCP Family Medicine; Visit Provider Internal Medicine Cardiovascular Disease | DX: I10 Essential (primary) hypertension (principal); D64.9 Anemia, unspecified; I49.5 Sick sinus syndrome; I73.9 Peripheral vascular disease, unspecified; F25.1 Schizoaffective disorder, depressive type; E11.42 Type 2 diabetes mellitus with diabetic polyneuropathy; Z79.84 Long term (current) use of oral hypoglycemic drugs; Z95.828 Presence of other vascular implants and grafts; E78.5 Hyperlipidemia, unspecified; J44.9 Chronic obstructive pulmonary disease, unspecified; Z98.62 Peripheral vascular angioplasty status; F17.200 Nicotine dependence, unspecified, uncomplicated | CPT/HCPCS: 99214 ==

== ENCOUNTER 2022-08-04 09:53 | Outpatient (CLI) | payer MEDICARE, MEDICAID, SELFPAY ==
--- NOTE | 2022-08-04 10:28 | PFTS_ITS ---
Date of Study:08/04/22 Date of Dictation: MECHANICS: Forced vital capacity (FVC) is . Forced expiratory volume in one second (FEV1) is . FEV1/FVC is . FLOW VOLUME LOOP: . LUNG VOLUMES: Total lung capacity (TLC) is . Residual volume (RV) is . DIFFUSING CAPACITY FOR CARBON MONOXIDE: . INTERPRETATION: The pulmonary function tests are . mechanics and lung volumes. Gas exchange (DLCO) is . MTDD
== END 2022-08-04 09:54 | disposition home or self-care (01) ==
LOC: RT 09:53
PROVIDERS: PCP Family Medicine; Visit Provider Family Medicine
DX: J44.9 Chronic obstructive pulmonary disease, unspecified (principal)
CPT/HCPCS: 94060; J7611

== ENCOUNTER → 2022-08-23 15:01 | Outpatient (BNVA) | payer MEDICARE, MEDICAID, SELFPAY | PROVIDERS: PCP Family Medicine; Visit Provider Podiatrist Foot & Ankle Surgery | DX: L85.1 Acquired keratosis [keratoderma] palmaris et plantaris (principal); I73.9 Peripheral vascular disease, unspecified; L84 Corns and callosities; E11.42 Type 2 diabetes mellitus with diabetic polyneuropathy; L60.3 Nail dystrophy; E11.8 Type 2 diabetes mellitus with unspecified complications | CPT/HCPCS: 17110 ==

== ENCOUNTER 2022-09-29 11:06 | Oncology outpatient (recurring) (ONCR) | payer MEDICARE, MEDICAID, SELFPAY ==
[2022-09-29 11:27] LABS: Basophils # 0.1 10^3/uL (0.0-0.1); Basophils % 0.6 %; Eosinophils # 0.9 10^3/uL (0.0-0.8); Eosinophils % 10.5 %; Hematocrit 35.2 % (42.0-52.0); Hemoglobin 11.6 g/dL (11.7-16.6); Lymphocytes # 1.6 10^3/uL (0.8-4.8); Lymphocytes % 18.3 %; Mean Corpuscular Hemoglobin 30.1 pg (28.0-34.0); Mean Corpuscular Volume 91.2 fl (80-94); Mean Platelet Volume 8.8 fL (7.4-10.4); Monocytes # 0.6 10^3/uL (0.2-0.9); Monocytes % 7.6 %; Neutrophils % 62.6 %; Nucleated Red Blood Cells % 0 %; Platelet Count 252 10^3/cmm (130-400); Red Blood Count 3.86 10^6/uL (4.1-5.3); Red Cell Distribution Width 12.7 % (12.1-15.1); White Blood Count 8.5 10^3/uL (4.0-10.0)
[2022-09-29 11:49] LABS: Alanine Aminotransferase 13 U/L (0-41); Albumin Level 4.1 g/dL (3.5-5.2); Alkaline Phosphatase 115 U/L (40-130); Aspartate Amino Transferase 12 U/L (0-40); Chloride 96 mmol/L (98-107); Ferritin 94 ng/mL (30-400); Iron 61 ug/dL (59-158); Percent Saturation 19.6 % (20-50); Potassium 4.9 mmol/L (3.5-5.1); Sodium 131 mmol/L (136-145); Total Iron Binding Capacity 311 mcg/dl; Unsaturated Iron Binding 250 ug/dL (112-347)
[2022-09-29 12:04] LABS: Blood Urea Nitrogen 30 mg/dL (8-23); Calcium 8.9 mg/dL (8.5-10.5); Carbon Dioxide 27 mmol/L (22-29); Globulin 3.2 g/dL (1.3-4.6); Glomerular Filtration Rate 66.8 mL/min (90-130); Glucose 163 mg/dL (65-115); Total Bilirubin 0.2 mg/dL (0.15-1.2); Total Protein 7.3 g/dL (6.6-8.7)
[2022-09-29 12:06] LABS: Anion Gap 12.9 (5-19); Osmolality Calculated 282 mOsm/kg (285-295)
== END 2022-10-27 23:59 | disposition home or self-care (01) ==
LOC: ONCMED 11:08
PROVIDERS: PCP Family Medicine; Visit Provider Internal Medicine Medical Oncology
DX: D50.9 Iron deficiency anemia, unspecified; F17.210 Nicotine dependence, cigarettes, uncomplicated; Z79.899 Other long term (current) drug therapy
CPT/HCPCS: 36415; 80053; 82728; 83540; 83550; 85025; 99213

== ENCOUNTER → 2022-10-04 15:14 | Outpatient (BNVA) | payer MEDICARE, MEDICAID, SELFPAY | PROVIDERS: PCP Family Medicine; Visit Provider Podiatrist Foot & Ankle Surgery | DX: I73.9 Peripheral vascular disease, unspecified (principal); L84 Corns and callosities; L60.3 Nail dystrophy; E11.42 Type 2 diabetes mellitus with diabetic polyneuropathy; E11.8 Type 2 diabetes mellitus with unspecified complications; L85.8 Other specified epidermal thickening | CPT/HCPCS: 17110 ==

== ENCOUNTER 2022-10-18 09:43 | Observation (INO) | payer MEDICARE, MEDICAID, SELFPAY ==
[2022-10-18] VITALS (24 sets, daily range): BP systolic 114–179; BP diastolic 62–99; PULSE 75–101; RESP 12–24; TEMP 37.2; O2SAT 93–98; BMI 18.8
--- NOTE | 2022-10-18 06:00 | XACV_ITS ---
Ht: 180 cm Wt: 61 kg BSA: 1.74 m2 Any Known Allergies: No known allergies Gender: Male : 1955 Exam Type: Invasive Peripheral Vascular Procedure(s): Procedure Description: Peripheral Cath Diagnostic Procedure Exam Priority: Routine Lower Extremity Diagnostic Findings INDICATION: 67-year-old man with past medical history of CAD and significant PAD has been having severe lifestyle limiting claudication symptoms. Last Doppler ultrasound showed significantly decreased ABIs bilaterally. Right lower extremity has more significant symptoms. Right lower extremity findings: Right common iliac artery: Patent Right external iliac artery: Patent Right common femoral artery: Patent Right profunda artery: Patent Right SFA: Has diffuse disease with multiple severe stenoses. Patent prior stent in mid SFA with moderate in-stent restenosis Right popliteal artery: Occluded Below the knee vessels are all filled via collaterals. Anterior tibial, peroneal and posterior tibial arteries being supplied by collaterals.. Left lower extremity findings: Left common iliac artery: Patent Left external iliac artery: Patent Left common femoral artery: Has mild to moderate stenosis Left SFA: Occluded Left femoropopliteal graft: Patent Popliteal artery is occluded. Below the knee all vessels are occluded. Peroneal artery reconstitutes via collaterals.. Conclusions Severe below the knee bilateral peripheral artery disease. Recommendations Aggressive medical therapy. Outpatient cardiology follow-up in 4 weeks. Hemodynamic Data Phase:Rest AO : 149.0 / 62.0 ( 99.0 ) @ 8:11:00 AM Access Site Site: Left Femoral artery Sheath Size: 6 Fr Hemost... Success: Unsuccessful Procedure Details Findings Procedure Consent Obtained. Admit Source: Out Patient. Pre-Procedure Time Out. Identified patient by full name and date of as verbalized by the patient/guarantor. Does the consent match the physician's order: Yes. Accurate & Complete Informed Consent: Yes. Inpatient/Outpatient History & Physical on Chart: Yes. If H&P is completed, is and addenduem needed: No; If yes, is the addendum complete: N/A. Visualize and Verify Site with Patient/Guarantor: N/A. Relevant Radiology Images available: Yes. The risks, benefits, and alternatives of sedation and/or procedure were discussed by physician. The patient agrees to continue. Procedure started. Correct patient, site and procedure confirmed by cath team. Current diagnosis: PAD. PERRLA. Strong, equal hand hand meat salter bilaterally. Lungs clear x 5 lobes. IV Site on Arrival: 20 gauge in the right anticubital. IV Fluids: 0.9% NaCl at KVO. 0 mL infused prior to label maker. Pre Procedural Pulses: bilateral dorsalis pedis was Doppled. Pre Procedural Pulses: bilateral posterior tibial was Doppled. Pre Procedural Pulses: bilateral radial was 3+. Oxygen started at 2liters/min via nasal canula. right groin was prepped with chloroprep then draped in the usual sterile fashion. left groin was prepped with chloroprep then draped in the usual sterile fashion. Physician notified. Baseline sample Acquired. HR: 87 BPM. Physician arrived. Physician scrubbed in. Time out performed with cath team. Lidocaine 1% infiltrated to the left groin. Arterial access obtained with micropuncture set. 6Fr glidesheath in over wire. removed as a whole. Dialator in over wire. removed. 6fr glidesheath inserted. A 6FrFr UF catheter in over wire. Abdominal aortogram performed in [facility] @ 10 mL/sec for a total of 30 mL. glidewire inserted through UF, and advaced down to SFA right side. UF catheter removed. Sheath upsized to a 6 Fr. Right common femoral selected and arteriogram with runoff performed @ 10 mL/sec for a total of 30 mL. Right common femoral selected and arteriogram of right lower vessels performed using DSA @ 10 mL/sec for a total of 30 mL. Right common femoral selected and arteriogram of lower right vessels performed @ 10 mL/sec for a total of 30 mL. Sheath upsized to a 6 Fr glidesheath. Left common femoral selected and arteriogram with runoff performed @ 10 mL/sec for a total of 30 mL. Sheath(s) removed and manual pressure held until hemostasis was achieved. Sterile 4x4 and Op-site applied to the puncture site. No oozing or hematoma noted. Post sheath removal instructions were given and the patient verbalized understanding. Post Procedure: Pulses reassessed and unchanged. PERRLA. Strong, equal hand hand meat salter bilaterally. No VTE prophylaxis required. Medication's Wasted: Heparin = 1000 units. Post-op diagnosis: severe bilateral CAD. Complications: none. Estimated blood loss: 5mL-10mL. Responsiveness - Normal response to verbal stimuli; alert and oriented, PERRLA. Airway - Unaffected, no intervention required; spontaneous ventilation. Circulation: W/N/L, pulses unchanged. Nausea/Vomiting: No. Procedure completed. Total IV fluids: 75 mL. Patient transferred by bed to CPRU. Vital chart was stopped. Procedure Medications Start: 7:53 AM Stop: 7:53 AM Medication: Versed Amount: 1 mg Route: I.V. Start: 7:53 AM Stop: 7:53 AM Medication: Fentanyl Amount: 50 mcg Route: I.V. Start: 8:19 AM Stop: 8:19 AM Medication: Versed Amount: 1 mg Route: I.V. Start: 8:19 AM Stop: 8:19 AM Medication: Fentanyl Amount: 50 mcg Route: I.V. I, the attending physician, have reviewed and verified all procedure medications. Yes, all medications given per verbal order History/Risk Factors Hypertension: No Dyslipidemia: Yes Peripheral Arterial Disease (PAD): Yes Obesity: No Tobacco Use: Current/Recent(w/in 1 year) Prior Interventions PCI: No CABG: No Valve Surgery: No Report Signatures Finalized by Kashif Mejias MD on 11/01/2022 06:51 PM
[2022-10-18] MEDS: diphenhydrAMINE 50 mg Capsule PO (06:17)
[2022-10-18 06:39] LABS: Basophils # 0.1 10^3/uL (0.0-0.1); Basophils % 0.7 %; Eosinophils # 0.8 10^3/uL (0.0-0.8); Eosinophils % 9.2 %; Hematocrit 34.3 % (42.0-52.0); Hemoglobin 11.4 g/dL (11.7-16.6); Lymphocytes # 1.8 10^3/uL (0.8-4.8); Lymphocytes % 22.2 %; Mean Corpuscular HGB Conc 33.2 g/dL (30.0-36.0); Mean Corpuscular Hemoglobin 30.6 pg (28.0-34.0); Mean Corpuscular Volume 92.2 fl (80-94); Mean Platelet Volume 8.8 fL (7.4-10.4); Monocytes # 0.6 10^3/uL (0.2-0.9); Monocytes % 6.7 %; Neutrophils # 5.01 10^3/uL (1.8-7.7); Nucleated Red Blood Cells % 0 %; Platelet Count 280 10^3/cmm (130-400); Red Blood Count 3.72 10^6/uL (4.1-5.3); Red Cell Distribution Width 12.8 % (12.1-15.1); White Blood Count 8.2 10^3/uL (4.0-10.0)
[2022-10-18 06:58] LABS: Anion Gap 13.2 (5-19); Blood Urea Nitrogen 17 mg/dL (8-23); Calcium 8.7 mg/dL (8.5-10.5); Carbon Dioxide 26 mmol/L (22-29); Chloride 98 mmol/L (98-107); Glomerular Filtration Rate 84.2 mL/min (90-130); Glucose 96 mg/dL (65-115); Osmolality Calculated 277 mOsm/kg (285-295); Potassium 4.2 mmol/L (3.5-5.1); Sodium 133 mmol/L (136-145)
--- NOTE | 2022-10-18 07:50 | W.PM.OPSFHP ---
Same Day Surgery H&P Indication for Procedure/HPI DATE OF PROCEDURE: October 18, 2022 CHIEF COMPLAINT/INDICATIONFOR SURGICAL PROCEDURE: Severe lifestyle limiting claudication PREOP DIAGNOSIS: Severe life style limiting claudication PLANNED PROCEDURE: Operation Date: 10/18/22 07:00 Proposed Procedures [place] [address],I73.9(Right) - Kashif Mejias M.D 67-year-old man with past medical history of CAD and significant PAD has been having severe lifestyle limiting claudication symptoms. Last Doppler ultrasound showed significantly decreased ABIs bilaterally. Right lower extremity has more significant symptoms. ROS CONSTITUTIONAL: No fever chills weight loss or gain or night sweats. [] HEENT: Normocephalic, atraumatic.[] RESPIRATORY: No cough, sputum, hemoptysis or wheezing.[] CARDIOVASCULAR: On and off chest pain CHANGE RELEASE MANAGER: No numbness, tingling, weakness or loss of function in any part of the body. [] MUSCULOSKELETAL: Bilateral lower extremity discomfort Medications/Allergies* Home Medications Medication Instructions Recorded Confirmed Type ascorbic acid (vitamin C) 500 mg 500 mg PO DAILY 12/11/19 10/27/22 History capsule finasteride 5 mg tablet 5 mg PO DAILY 12/11/19 10/27/22 History gabapentin 300 mg capsule 300 mg PO TID 12/11/19 10/27/22 History omeprazole magnesium 10 mg oral 20 mg PO BID 12/11/19 10/27/22 History suspension,delayed release (Prilosec) pravastatin 80 mg tablet 80 mg PO DAILY 12/11/19 10/27/22 History tamsulosin 0.4 mg capsule 0.8 mg PO BEDTIME 12/11/19 10/27/22 History docusate sodium 100 mg tablet 100 mg PO BID PRN Constipation 06/29/21 10/27/22 History ferrous sulfate 325 mg (65 mg 325 mg PO .every other day 07/01/22 10/27/22 History iron) tablet Allergies/Adverse Reactions Allergy/AdvReac Type Severity Reaction Status Date / Time No Known Allergies Allergy Verified 10/27/22 13:35 Current Medications: Generic Name Dose Route Start Last Admin Trade Name Freq PRN Reason Stop Dose Admin Sodium Chloride 1,000 mls @ 50 mls/hr 10/18/22 06:00 10/18/22 06:17 Sodium Chloride 0.9% IV 10/19/22 01:59 Not Given .Q20H ONE Pertinent History/Comorbid Conditions* Medical History (Updated 07/01/22 @ 19:42 by Jan Mehta MD) Anemia BPH with obstruction/lower urinary tract symptoms COPD (chronic obstructive pulmonary disease) Dyslipidemia Essential hypertension GERD (gastroesophageal reflux disease) History of MRSA infection Nicotine dependence, cigarettes, uncomplicated Peripheral arterial disease Peripheral neuropathy Psychiatric care Schizoaffective disorder, depressive type Type 2 diabetes mellitus Surgical History (Updated 09/30/22 @ 05:51 by Jan Mehta MD) H/O colonoscopy yrs ago H/O esophagogastroduodenoscopy H/O foot surgery x 2 for diabetic foot ulcer History of eye surgery x3 History of surgery on arm Multiple procedures on the right arm related to MRSA infection S/P angioplasty Angioplasty with stent placement to the right leg Status post femoral-popliteal bypass surgery Left femoropopliteal bypass in 2012 with redo bypass in 2013 Family History (Updated 12/15/21 @ 13:54 by Leonor Vanegas LPN) Father, at age 59 Diabetes Family/Other Alcoholic Father Lung disease Mother Cancer Family/Other Unknown Hypertension Family/Other Stroke Family/Other Mother Denies family history of Anesthesia complication Bleeding disorder Social History Smoking and tobacco status: current every day smoker Alcohol intake: former Household members: other Details: room mate Marital status: Current occupational status: disabled History of recent travel: No Current gender identity: Male Pertinent Exam Findings alert, oriented x 3, clear to auscultation bilaterally and regular rate & rhythm Conscious Sedation Assessment PATIENT ASSESSED PRIOR TO SEDATION, WITH NO CHANGE NOTED: Yes AIRWAY EVAL/ANESTHESIA PLAN: normal airway, see other exam findings, ASA III, Local Anesthesia, Risks, benefits & alternatives of sedation and/or procedure discussed and Patient agrees to continue as planned ADDITIONAL INFORMATION: Moderate sedation Recommendations Surgery/Procedure today (Peripheral angiogram with possible percutaneous intervention) Coding Level of Care Code Acute Public Health Teacher for Becca Oliver
--- NOTE | 2022-10-18 08:50 | SUR.PHASEI ---
Received the patient back from the slab stripper S/P diagnostic peripheral angiogram. Patient awake and oriented x 3. shelter monitor placed and vital signs obtained. Left femoral access site soft with no bleeding or hematoma noted. Dressing dry and intact. [id number] at bedside. No concerns voiced at this time. No other assessment changes noted from pre cath assessment.
--- NOTE | 2022-10-18 09:21 | SUR.PHASEI ---
Patient transferred to [facility] via cot.
[2022-10-18 11:17] LABS: Glucose Point of Care 178 mg/dL (70-110)
[2022-10-18] MEDS: sodium chloride 0.9% 1,000 ML 75 ML IV (12:14)
== END 2022-10-18 17:50 | disposition home or self-care (01) ==
LOC: CSU 09:43
PROVIDERS: Admitting Provider Internal Medicine; PCP Family Medicine; Visit Provider Internal Medicine
DX: I73.9 Peripheral vascular disease, unspecified (principal); I25.10 Atherosclerotic heart disease of native coronary artery without angina pectoris; N40.1 Benign prostatic hyperplasia with lower urinary tract symptoms; N13.8 Other obstructive and reflux uropathy; J44.9 Chronic obstructive pulmonary disease, unspecified; E78.5 Hyperlipidemia, unspecified; I10 Essential (primary) hypertension; K21.9 Gastro-esophageal reflux disease without esophagitis; Z86.14 Personal history of Methicillin resistant Staphylococcus aureus infection; F17.210 Nicotine dependence, cigarettes, uncomplicated; E11.42 Type 2 diabetes mellitus with diabetic polyneuropathy
CPT/HCPCS: 36415; 36416; 75625; 75716; 80048; 82962; 85025; 96365; 99152; 99153; C1769; C1887; C1894; G0378; J1644; J2250; J3010; J7030; Q0163; Q9967

== ENCOUNTER → 2022-10-27 12:25 | Outpatient (BNVA) | payer MEDICARE, MEDICAID, SELFPAY | PROVIDERS: PCP Family Medicine; Visit Provider Nurse Practitioner Family | DX: I73.9 Peripheral vascular disease, unspecified (principal) | CPT/HCPCS: 99214 ==

== ENCOUNTER 2022-11-15 06:01 | Outpatient (CLI) | payer MEDICARE, MEDICAID, SELFPAY ==
[2022-11-12 11:50] LABS: Basophils # 0.1 10^3/uL (0.0-0.1); Basophils % 0.7 %; Eosinophils # 0.7 10^3/uL (0.0-0.8); Eosinophils % 7.6 %; Hematocrit 35.1 % (42.0-52.0); Hemoglobin 11.7 g/dL (11.7-16.6); Lymphocytes # 1.5 10^3/uL (0.8-4.8); Lymphocytes % 15.9 %; Mean Corpuscular HGB Conc 33.3 g/dL (30.0-36.0); Mean Corpuscular Hemoglobin 30.3 pg (28.0-34.0); Mean Corpuscular Volume 90.9 fl (80-94); Monocytes # 0.6 10^3/uL (0.2-0.9); Monocytes % 5.7 %; Neutrophils # 6.68 10^3/uL (1.8-7.7); Neutrophils % 69.7 %; Nucleated Red Blood Cells % 0 %; Platelet Count 249 10^3/cmm (130-400); Red Blood Count 3.86 10^6/uL (4.1-5.3); Red Cell Distribution Width 12.9 % (12.1-15.1); White Blood Count 9.6 10^3/uL (4.0-10.0)
[2022-11-12 12:05] LABS: Anion Gap 13.1 (5-19); Blood Urea Nitrogen 18 mg/dL (8-23); Calcium 8.8 mg/dL (8.5-10.5); Carbon Dioxide 25 mmol/L (22-29); Chloride 102 mmol/L (98-107); Glomerular Filtration Rate 84.2 mL/min (90-130); Glucose 112 mg/dL (65-115); Osmolality Calculated 283 mOsm/kg (285-295); Potassium 5.1 mmol/L (3.5-5.1); Sodium 135 mmol/L (136-145)
[2022-11-12 12:23] LABS: Prothrombin Time (Patient) 12.5 Seconds (12.0-15.1)
[2022-11-15 06:00] VITALS: BP 161/79; PULSE 94; RESP 16; TEMP 36.6; O2SAT 97; BMI 19.3
--- NOTE | 2022-11-15 06:00 | XACV_ITS ---
Exam Room: 2 Ht: 180 cm Wt: 63 kg BSA: 1.77 m2 Gender: Male : 1955 Any Known Allergies: No known allergies Exam Priority: Routine Procedure(s): Procedure Description: Diagnostic procedure Procedure Description: PCI procedure Procedure Description: Left Heart Catheterization Procedure Description: Drug Eluting Coronary Stent Procedure Description: PTCA Procedure Description: Coronary Angiography Diagnostic Cath Status: Elective Diagnostic Findings * Left Main has no significant disease. * Left Anterior Descending has mild luminal irregularities. No significant stenosis. * Ostial left Circumflex: critical 95% stenosis, BUBBA: 3 flow. * RCA is patent. RPL: subtotal occlusion, BUBBA: 1 flow. Has collaterals from left system. * Coronary angiography shows right dominance. PCI Status: Elective PCI Indication: Other Interventional Findings * Procedure Detail: We engaged left main artery with XB 3.5 guide catheter. IV heparin was administered to maintain ACT above 250 s. 0.014 run-through guidewire was used to cross ostial left circumflex artery stenosis and was put in distal vessel. We predilated the stenosis with 2.25 x 15 mm semi-compliant balloon. This was followed by placement of 3.0 x 12 mm resolute Rutledge drug-eluting stent. We postdilated the stent in the proximal section of the stent with 3.5 x 8 mm NC balloon. At this time final angiogram was performed that showed excellent stent expansion, BUBBA-3 flow and no residual stenosis. Guidewire and guide catheter were removed. Patient left the Hand Splitter in a stable condition.. * Proximal Circumflex: 95% stenosis treated with a AB TREK 2.25X15 RX BALLOON, BENIGNO Stuart ARJUN 3.0X12 XUAN, and BENIGNO FLORES EUPHORA RX [id number] BALLOON. 0% residual stenosis, BUBBA: 3 flow. Conclusions 1. Critical ostial left circumflex artery stenosis s/p PCI with XUAN x1. 2. Subtotal occlusion of RPL with collateral flow from left system. Given small size of vessel, medical therapy decided. 3. Proximal Circumflex was treated with a Balloon, Drug Eluting Stent, and Balloon. Recommendations * Aspirin and Plavix for at least 1 year. * Patient not on antiplatelet therapy before. He will be put on Aggrastat for 4 hours. * High intensity statin therapy. * Outpatient cardiology follow-up in 4-week. Interventional RX Recommendation: PCI w/o planned CABG Diagnostic RX Recommendation: PCI w/o planned CABG Anticoagulation: Heparin Pressures Phase:Rest AO : 96 / 67 ( 82 ) @ 7:36:00 AM 103 / 64 ( 83 ) @ 7:54:00 AM Clinical Evaluation EBL: 5mL-10mL Procedural Details Procedure Consent Obtained. Admit Source: Out Patient. Pre-Procedure Time Out. Identified patient by full name and date of as verbalized by the patient/guarantor. Does the consent match the physician's order: Yes. Accurate & Complete Informed Consent: Yes. Inpatient/Outpatient History & Physical on Chart: Yes. If H&P is completed, is and addenduem needed: No; If yes, is the addendum complete: N/A. Visualize and Verify Site with Patient/Guarantor: N/A. Relevant Radiology Images available: N/A. The risks, benefits, and alternatives of sedation and/or procedure were discussed by physician. The patient agrees to continue. [facility] Clinical Fraility Score: 4: Vulnerable. Hand Splitter Indications: Worsening Angina. Chest Pain Symptom Assessment: Typical Angina Symptoms. Procedure started. Correct patient, site and procedure confirmed by cath team. PERRLA. Strong, equal hand coater bilaterally. Lungs clear x 5 lobes. IV Site on Arrival: 20 gauge in the left anticubital. IV Fluids: 0.9% NaCl at KVO. 0 mL infused prior to cardiac cath lab manager. Pre Procedural Pulses: bilateral dorsalis pedis was Doppled. Pre Procedural Pulses: bilateral posterior tibial was Doppled. Pre Procedural Pulses: bilateral radial was 3+. Oxygen started at 2liters/min via nasal canula. right groin was prepped with chloroprep then draped in the usual sterile fashion. right radial was prepped with chloroprep then draped in the usual sterile fashion. Baseline sample Acquired. HR: 89 BPM. Physician notified. Physician arrived. Physician scrubbed in. Immediate Pre-Procedure Time Out. Correct Patient: Yes; Correct Procedure: Yes; Correct Site: Yes; Correct Patient Position: Yes; Correct Supplies: Yes; Dried Flammable Prep: Yes; Blood Products Available: N/A;. Lidocaine 1% infiltrated to the right radial. Arterial access obtained. Hand injection through sheath. A 5 bulgarian Tomas catheter in over wire. Multiple views taken of left coronary artery. Catheter redirected to the RCA. Multiple views taken of right coronary artery. Catheter out. Physician review of cine films. 6 bulgarian XB 3.5 guide catheter was inserted over the wire. Catherter out over the wire. 6 bulgarian XB 3.5 guide catheter was inserted over the wire. Runthrough guidewire was advanced through the guide catheter to lesion in the prox Circ. 2nd runthrough in through the catheter. Both wires out to reshape. Runthrough guidewire was advanced through the guide catheter to lesion in the prox Circ. Inflation number : 1 A AB TREK 2.25X15 RX BALLOON was prepped and advanced across the Prox CX , then inflated to 10 ABIGAIL for 0:21 seconds. Inflation number: 2 The AB TREK 2.25X15 RX BALLOON was reinflated across the Prox CX, to 10 ABIGAIL for 0:07 seconds. Balloon out. Results checked. Stent inserted to lesion in the prox Circ. Inflation Number : 3 A BENIGNO Stuart ARJUN 3.0X12 XUNA -Lot Number# [id number] exp date 06/02/2024 was prepped and advanced across the Prox CX. The stent was deployed at 14 ABIGAIL for 0:14 seconds. Stent balloon out over wire. Inflation number : 4 A BENIGNO FLORES EUPHORA RX [id number] BALLOON was prepped and advanced across the Prox CX , then inflated to 18 ABIGAIL for 0:17 seconds. Balloon out. ACT drawn. Results 177 seconds. Therapeutic limits - pre-heparin administration 90-150 seconds and monitoring heparin during a vascular procedure >250 seconds. Results checked. Wire out. Guide catheter out. ACT drawn. Results 215 seconds. Therapeutic limits - pre-heparin administration 90-150 seconds and monitoring heparin during a vascular procedure >250 seconds. A TR Band was successful obtaining hemostatsis at the Right Radial artery insertion site. Post Procedure: Pulses reassessed and unchanged. PERRLA. Strong, equal hand coater bilaterally. No VTE prophylaxis required. Medication's Wasted: Lidocaine 1% = 3 mL. Medication's Wasted: Nitro = 49.6 mg. Medication's Wasted: Heparin = 4000 units. Total IV fluids: 68 mL. Post-op diagnosis: critical ostial let circimflex occusion, post pci with 1 stent. Complications: none. Estimated blood loss: 5mL-10mL. Responsiveness - Normal response to verbal stimuli; alert and oriented, PERRLA. Airway - Unaffected, no intervention required; spontaneous ventilation. Circulation: W/N/L, pulses unchanged. Nausea/Vomiting: No. Procedure completed. Patient transferred by bed to CPRU. Vital chart was stopped. Access Site Site: Right Radial artery Sheath Size: 6 Fr Hemostasis Method: TR Band Hemostasis Success: Successful Procedure Medications Start: 7:23 AM Stop: 7:23 AM Medication: Versed Amount: 1 mg Route: I.V. Start: 7:23 AM Stop: 7:23 AM Medication: Fentanyl Amount: 50 mcg Route: I.V. Start: 7:25 AM Stop: 7:25 AM Medication: Versed Amount: 1 mg Route: I.V. Start: 7:27 AM Stop: 7:27 AM Medication: Nitrogylcerin Amount: 200 mcg Route: I.A. Start: 7:28 AM Stop: 7:28 AM Medication: Fentanyl Amount: 50 mcg Route: I.V. Start: 7:30 AM Stop: 7:30 AM Medication: Verapamil Amount: 5 mg Route: I.A. Start: 7:34 AM Stop: 7:34 AM Medication: Heparin Amount: 5000 units Route: I.V. Start: 7:43 AM Stop: 7:43 AM Medication: Heparin Amount: 2000 units Route: I.V. Start: 7:43 AM Stop: 7:43 AM Medication: Versed Amount: 1 mg Route: I.V. Start: 7:44 AM Stop: 7:44 AM Medication: Nitrogylcerin Amount: 200 mcg Route: I.A. Start: 7:58 AM Stop: 7:58 AM Medication: Heparin Amount: 1000 units Route: I.V. Start: 8:06 AM Stop: 8:06 AM Medication: Versed Amount: 1 mg Route: I.V. Start: 8:08 AM Stop: 8:08 AM Medication: Nitrogylcerin Amount: 200 mcg Route: I.C. Start: 8:10 AM Stop: 8:10 AM Medication: Aggrastat 12.5 mg/250 mL Amount: 32 ml Route: I.V. bolus Start: 8:11 AM Stop: 8:11 AM Medication: Aggrastat 12.5 mg/250 mL Amount: 11.5 ml/hr Route: I.V. drip Start: 8:11 AM Stop: 8:11 AM Medication: Heparin Amount: 4000 units Route: I.V. Start: 8:11 AM Stop: 8:11 AM Medication: Plavix Amount: 600 mg Route: P.O. Start: 8:11 AM Stop: 8:11 AM Medication: Aspirin Amount: 325 mg Route: P.O. Start: 8:17 AM Stop: 8:17 AM Medication: Heparin Amount: 1000 units Route: I.V. I, the attending physician, have reviewed and verified all procedure medications. Yes, all medications given per verbal order History/Risk Factors Hypertension: Yes Dyslipidemia: Yes Peripheral Arterial Disease (PAD): Yes Myocardial Infarction (ME): No Obesity: No Renal Disease: No Tobacco Use: Current/Recent(w/in 1 year) Prior Interventions PCI: No CABG: No Valve Surgery: No Report Signatures Finalized by Kashif Mejias MD on 11/15/2022 09:33 AM
[2022-11-15] MEDS: diphenhydrAMINE 50 mg Capsule PO (06:33)
[2022-11-15 06:39] LABS: Glucose Point of Care 97 mg/dL (70-110)
--- NOTE | 2022-11-15 07:11 | W.PM.OPSFHP ---
Same Day Surgery H&P Indication for Procedure/HPI DATE OF PROCEDURE: November 15, 2022 CHIEF COMPLAINT/INDICATIONFOR SURGICAL PROCEDURE: Worsening angina PREOP DIAGNOSIS: Worsening angina PLANNED PROCEDURE: Operation Date: 11/15/22 07:00 Proposed Procedures p Left heart cath 98254 I20.0(Left) - Kashif Mejias M.D Possible percutaneous coronary intervention 67-year-old with past medical history of CAD, peripheral artery disease with multiple interventions who has been having worsening chest pain symptoms over the last 1 to 2 months. He says minimal activity remains chest discomfort arm. He had stress test earlier this year that showed prior infarct with jose luis-infarct ischemia in the apical, apical lateral and anterolateral malik. However given his worsening chest discomfort episodes, plan for left heart cath with possible percutaneous coronary intervention. Medications/Allergies* Home Medications Medication Instructions Recorded Confirmed Type ascorbic acid (vitamin C) 500 mg 500 mg PO EVERY OTHER DAY 12/11/19 11/15/22 History capsule finasteride 5 mg tablet 5 mg PO DAILY 12/11/19 11/15/22 History gabapentin 300 mg capsule 300 mg PO TID 12/11/19 11/15/22 History omeprazole magnesium 10 mg oral 20 mg PO BID 12/11/19 11/15/22 History suspension,delayed release (Prilosec) pravastatin 80 mg tablet 80 mg PO DAILY 12/11/19 11/15/22 History tamsulosin 0.4 mg capsule 0.8 mg PO BEDTIME 12/11/19 11/15/22 History docusate sodium 100 mg tablet 100 mg PO BID PRN Constipation 06/29/21 11/15/22 History ferrous sulfate 325 mg (65 mg 325 mg PO .every other day 07/01/22 11/15/22 History iron) tablet acyclovir 800 mg tablet 800 mg PO 5XD 11/15/22 11/15/22 History Allergies/Adverse Reactions Allergy/AdvReac Type Severity Reaction Status Date / Time No Known Allergies Allergy Verified 11/15/22 06:39 Current Medications: Generic Name Dose Route Start Last Admin Trade Name Freq PRN Reason Stop Dose Admin Sodium Chloride 1,000 mls @ 50 mls/hr 11/15/22 06:00 11/15/22 06:33 Sodium Chloride 0.9% IV 11/16/22 01:59 Not Given .Q20H ONE Pertinent History/Comorbid Conditions* Medical History (Updated 07/01/22 @ 19:42 by Jan Mehta MD) Anemia BPH with obstruction/lower urinary tract symptoms COPD (chronic obstructive pulmonary disease) Dyslipidemia Essential hypertension GERD (gastroesophageal reflux disease) History of MRSA infection Nicotine dependence, cigarettes, uncomplicated Peripheral arterial disease Peripheral neuropathy Psychiatric care Schizoaffective disorder, depressive type Type 2 diabetes mellitus Surgical History (Updated 09/30/22 @ 05:51 by Jan Mehta MD) H/O colonoscopy yrs ago H/O esophagogastroduodenoscopy H/O foot surgery x 2 for diabetic foot ulcer History of eye surgery x3 History of surgery on arm Multiple procedures on the right arm related to MRSA infection S/P angioplasty Angioplasty with stent placement to the right leg Status post femoral-popliteal bypass surgery Left femoropopliteal bypass in 2012 with redo bypass in 2013 Family History (Updated 12/15/21 @ 13:54 by Leonor Vanegas LPN) Father, at age 59 Diabetes Family/Other Alcoholic Father Lung disease Mother Cancer Family/Other Unknown Hypertension Family/Other Stroke Family/Other Mother Denies family history of Anesthesia complication Bleeding disorder Social History Smoking and tobacco status: current every day smoker Alcohol intake: former Household members: other Details: room mate Marital status: Current occupational status: disabled History of recent travel: No Current gender identity: Male Pertinent Exam Findings alert, oriented x 3, clear to auscultation bilaterally and regular rate & rhythm Conscious Sedation Assessment PATIENT ASSESSED PRIOR TO SEDATION, WITH NO CHANGE NOTED: Yes AIRWAY EVAL/ANESTHESIA PLAN: normal airway, ASA III, Local Anesthesia, Risks, benefits & alternatives of sedation and/or procedure discussed and Patient agrees to continue as planned ADDITIONAL INFORMATION: Moderate sedation Recommendations Surgery/Procedure today (Left heart cath with possible percutaneous coronary intervention) Coding Level of Care Code Acute Architect Intern for Becca Oliver
--- NOTE | 2022-11-15 08:20 | SUR.PHASEI ---
HOLDING/POST CATH NOTE Patient brought to CPRU-3 via bed for early recovery. Status post cardiac catheterization via the right radial approach. TR band on and is hemostatic- no bleeding noted.
--- NOTE | 2022-11-15 08:21 | SUR.PHASEI ---
Patient resting comfortably. IV 0.9% NS infusing at 75 ml/hr. IV aggrastat at 11.4 ml/hr as ordered. VS are stable. Assessments per flowsheet. Call light placed within easy reach. Informed to call for needs.
[2022-11-15 08:25] VITALS: BP 149/84; RESP 16; O2SAT 96
[2022-11-15 08:30] VITALS: BP 149/81; PULSE 81; RESP 16; O2SAT 95
[2022-11-15 08:45] VITALS: BP 156/80; PULSE 79; RESP 17; O2SAT 96
--- NOTE | 2022-11-15 08:52 | SUR.PHASEI ---
TRANSFER Patient transferred to ICU-1 via bed. Report to Estrella CHUNG.
[2022-11-15 09:06] VITALS: BMI 19.3
[2022-11-15 09:10] LABS: Glucose Point of Care 91 mg/dL (70-110)
--- NOTE | 2022-11-15 12:16 | PC.CHAP ---
Pastoral Care Encounter/Spiritual Assessment Type of Contact [] Declined network solutions architect visit [] Patient/Family/Request visit [] Outpatient visit [] Follow-up visit [] Physician referral [] Code/Alert [x] Routine visit [] Staff referral [] Actively dying [x] Patient sleeping [x] Family support [] [] Out of room [] Palliative care [] [] Receiving care in room [] Pre-surgical visit [] Trauma [] Long length of stay [x] ICU visit [] Other: Relational/Emotional Strength [] Patient feels connected with others/family/visitors/staff [] Distress [] Loneliness/isolation [] Abandonment Spirituality of Patient [] Person of Soni [] Attends Moravian of their Soni [] Believes in Prayer [] Reads Bible or Methodist materials [] There are Spiritual issues to be addressed Hearing Aid Assembly Supervisor Interventions [x] Prayer [] Active listening [] Non-anxious presence [] Spiritual/emotional support [] Crisis/trauma care [] Spiritual counseling [] Bereavement support [] Provided bereavement packet [] Provided Bible/devotional materials [] Provided toy/stuffed animal, coloring book to patient or family member [] Provided Communion [] Anointing/[employer] [] Salvation [x] Completed spiritual assessment [] Other: Impact on Illness or Injury [] Angry [] Fearful [] Anxious [] Often cries [] Exhaustion [] Unable to work [] Unable to attend mormonism [] Unable to walk/stand [] Unable to read [] Unable to drive [] Unable to eat/drink [] Unable to sleep [] Unable to be with family [] Patient intubated [] Other: Summary Time spent with patient
[2022-11-15] MEDS: polyethylene glycol 3350 Pkt 17 gm PO (21:31)
[2022-11-15 22:29] VITALS: PULSE 76
[2022-11-16 05:59] VITALS: PULSE 75
[2022-11-16 07:36] LABS: Glucose Point of Care 98 mg/dL (70-110)
[2022-11-16 08:54] LABS: Basophils # 0.1 10^3/uL (0.0-0.1); Basophils % 0.7 %; Eosinophils # 0.6 10^3/uL (0.0-0.8); Eosinophils % 7.4 %; Hematocrit 36.4 % (42.0-52.0); Hemoglobin 12.6 g/dL (11.7-16.6); Lymphocytes # 1.6 10^3/uL (0.8-4.8); Mean Corpuscular HGB Conc 34.6 g/dL (30.0-36.0); Mean Corpuscular Hemoglobin 30.7 pg (28.0-34.0); Mean Corpuscular Volume 88.6 fl (80-94); Monocytes # 0.5 10^3/uL (0.2-0.9); Neutrophils # 4.78 10^3/uL (1.8-7.7); Neutrophils % 63.5 %; Nucleated Red Blood Cells % 0 %; Platelet Count 237 10^3/cmm (130-400); Red Blood Count 4.11 10^6/uL (4.1-5.3); Red Cell Distribution Width 12.6 % (12.1-15.1); White Blood Count 7.5 10^3/uL (4.0-10.0)
[2022-11-16 09:18] LABS: Anion Gap 13.8 (5-19); Blood Urea Nitrogen 15 mg/dL (8-23); Calcium 9.7 mg/dL (8.5-10.5); Carbon Dioxide 26 mmol/L (22-29); Chloride 99 mmol/L (98-107); Glomerular Filtration Rate 96.4 mL/min (90-130); Glucose 98 mg/dL (65-115); Osmolality Calculated 279 mOsm/kg (285-295); Potassium 4.8 mmol/L (3.5-5.1); Sodium 134 mmol/L (136-145)
[2022-11-16] MEDS: aspirin 81 mg EC Tablet PO (09:18)
[2022-11-16] MEDS: clopidogrel 75 mg Tablet PO (09:18)
--- NOTE | 2022-11-16 09:38 | PM.DCS ---
Discharge Providers Date of Admission: November 15, 2022 Date of Discharge: November 16, 2022 Attending Provider at Discharge: Kashif Mejias M.D Primary Care Provider: Fern Sauceda DO Reason for Visit Reason for Visit: I20.0 Brief History: 67-year-old with past medical history of CAD, peripheral artery disease with multiple interventions who has been having worsening chest pain symptoms over the last 1 to 2 months.? He says minimal activity remains chest discomfort arm.? He had stress test earlier this year that showed prior infarct with jose luis-infarct ischemia in the apical, apical lateral and anterolateral malik.? However given his worsening chest discomfort episodes, plan for left heart cath with possible percutaneous coronary intervention. Hospital Course Hospital Course Patient had coronary angiogram yesterday that showed critical ostial to proximal left circumflex artery stenosis. He underwent successful revascularization with XUAN x1. He was observed overnight and stayed stable. He was discharged home in a stable condition on dual antiplatelet therapy. Physical Exam Narrative: GENERAL: Patient is alert, awake and oriented x3. [] NECK: No jugular vein distension. [] HEENT: No cyanosis. No icterus. No pallor. [] HEART: Regular S1 and S2. No murmur, rub or gallop. [] LUNGS: Clear to auscultate bilaterally. [] CENTRAL NERVOUS SYSTEM: Grossly nonfocal. [] EXTREMITIES: Lower extremities with no edema bilaterally. Pulses palpable in the lower extremities, both dorsalis pedis and posterior tibial. [] Discharge Data Studies Completed and Pending Completed Studies During Hospitalization Category Date Time Status ENTERPRISE SOFTWARE DEVELOPER request for service Routine Exams 11/15/22 06:00 Completed Laboratory Results WBC 7.5 10^3/uL (4.0-10.0) 11/16/22 08:34 RBC 4.11 10^6/uL (4.1-5.3) 11/16/22 08:34 Hgb 12.6 g/dL (11.7-16.6) 11/16/22 08:34 Hct 36.4 % (42.0-52.0) L 11/16/22 08:34 MCV 88.6 fl (80-94) 11/16/22 08:34 MCH 30.7 pg (28.0-34.0) 11/16/22 08:34 MCHC 34.6 g/dL (30.0-36.0) 11/16/22 08:34 RDW 12.6 % (12.1-15.1) 11/16/22 08:34 Plt Count 237 10^3/cmm (130-400) 11/16/22 08:34 MPV 9.0 fL (7.4-10.4) 11/16/22 08:34 Neut % (Auto) 63.5 % 11/16/22 08:34 Lymph % (Auto) 21.0 % 11/16/22 08:34 Pershing % (Auto) 7.0 % 11/16/22 08:34 Eos % (Auto) 7.4 % 11/16/22 08:34 Baso % (Auto) 0.7 % 11/16/22 08:34 Neut # (Auto) 4.78 10^3/uL (1.8-7.7) 11/16/22 08:34 Lymph # (Auto) 1.6 10^3/uL (0.8-4.8) 11/16/22 08:34 Pershing # (Auto) 0.5 10^3/uL (0.2-0.9) 11/16/22 08:34 Eos # (Auto) 0.6 10^3/uL (0.0-0.8) 11/16/22 08:34 Baso # (Auto) 0.1 10^3/uL (0.0-0.1) 11/16/22 08:34 Nucleated RBC % (auto) 0 % 11/16/22 08:34 Nucleated RBCs # 0.0 /100WBC 11/16/22 08:34 PT 12.5 Seconds (12.0-15.1) 11/12/22 11:36 INR 0.90 (0.83-1.21) 11/12/22 11:36 Sodium 134 mmol/L (136-145) L 11/16/22 08:34 Potassium 4.8 mmol/L (3.5-5.1) 11/16/22 08:34 Chloride 99 mmol/L (98-107) 11/16/22 08:34 Carbon Dioxide 26 mmol/L (22-29) 11/16/22 08:34 Anion Gap 13.8 (5-19) 11/16/22 08:34 BUN 15 mg/dL (8-23) 11/16/22 08:34 Creatinine 0.8 mg/dL (0.7-1.2) 11/16/22 08:34 GFR Calculation 96.4 mL/min (90-130) 11/16/22 08:34 Glucose 98 mg/dL (65-115) 11/16/22 08:34 POC Glucose 98 mg/dL (70-110) 11/16/22 07:33 Calculated Osmolality 279 mOsm/kg (285-295) L 11/16/22 08:34 Calcium 9.7 mg/dL (8.5-10.5) 11/16/22 08:34 Vitals Last Vital Signs Temp 97.9 F 11/15/22 06:00 Pulse 75 11/16/22 05:59 Resp 17 11/15/22 08:45 BP 156/80 11/15/22 08:45 Pulse Ox 96 11/15/22 08:45 O2 Del Method 11/15/22 09:06 Discharge Plan Discharge Patient Disposition: Home Prescriptions: New aspirin 81 mg Tablet,Delayed Release (Dr/Ec) 81 mg PO DAILY Qty: 90 3RF clopidogrel 75 mg Tablet 75 mg PO DAILY Qty: 90 3RF Continued (DME) Diabetic shoes with 3 sets of insoles See Rx Instructions .Route .MEDSUPPLY Qty: 1 0RF Rx Instructions: As directed by PAIGE&O gabapentin 300 mg capsule 300 mg PO TID tamsulosin 0.4 mg capsule 0.8 mg PO BEDTIME Rx Instructions: TAKES 2 PILLS AT HS ascorbic acid (vitamin C) 500 mg capsule 500 mg PO EVERY OTHER DAY pravastatin 80 mg tablet 80 mg PO DAILY finasteride 5 mg tablet 5 mg PO DAILY ferrous sulfate 325 mg (65 mg iron) tablet 325 mg PO .every other day buspirone 15 mg tablet 30 mg PO BID Qty: 120 4RF Rx Instructions: Take two tablets twice per day mirtazapine [Remeron] 15 mg tablet 15 mg PO .QHS Qty: 90 2RF Rx Instructions: Take one tablet at bedtime bupropion HCl 300 mg tablet extended release 24 hr 300 mg PO QAM Qty: 90 2RF Rx Instructions: Take one tablet every morning aripiprazole 15 mg tablet 15 mg PO .morning Qty: 90 2RF Rx Instructions: Take one tablet every morning furosemide [Lasix] 20 mg tablet 20 mg PO DAILY Qty: 90 3RF docusate sodium 100 mg Tablet 100 mg PO BID PRN (Reason: Constipation) acyclovir 800 mg Tablet 800 mg PO 5XD Rx Instructions: space evenly during waking hours No Action pantoprazole 20 mg tablet,delayed release (DR/EC) 20 mg PO BID Qty: 180 3RF Discharge Orders: Discharge Order (Routine); Ordered 11/16/22 Ordered By: Kashif Mejias Referrals: Kashif Mejias M.D [Physician] - 11/19/22 10:15 am (please keep your appt of 11-19-22 10:[address] Mejias) Leonor Brito FNP [Nurse Practitioner] - 7-10 days (you will see Dr Mejias instead of Leonor ) Diet: Cardiac Activity: Increase activity as tolerated Patient Instructions: Aspirin (By mouth), Clopidogrel (By mouth), Coronary Angioplasty (DC), Heart Healthy Diet (DC), Post Angiogram Home Care Instructions Discharge Date/Time: 11/16/22 11:34 Discharge Attestations Time Spent in Discharge Care*: less than 30 min Quality Metrics Clinical Quality Measures [ No reported AMI, CVA or VTE this stay] Coding Level of Care Code Acute Chg FW DC note
--- NOTE | 2022-11-16 10:16 | PC.CHAP ---
Pastoral Care Encounter/Spiritual Assessment Type of Contact [] Declined medicaid billing clerk visit [] Patient/Family/Request visit [] Outpatient visit [] Follow-up visit [] Physician referral [] Code/Alert [x] Routine visit [] Staff referral [] Actively dying [] Patient sleeping [] Family support [] [] Out of room [] Palliative care [] [] Receiving care in room [] Pre-surgical visit [] Trauma [] Long length of stay [x] ICU visit [x] Other:PT stronger today... eating breakfast Relational/Emotional Strength [] Patient feels connected with others/family/visitors/staff [] Distress [] Loneliness/isolation [] Abandonment Spirituality of Patient [] Person of Soni [] Attends Religious of their Soni [] Believes in Prayer [] Reads Bible or Evangelical materials [] There are Spiritual issues to be addressed Batch Tank Controller Interventions [x] Prayer [] Active listening [] Non-anxious presence [] Spiritual/emotional support [] Crisis/trauma care [] Spiritual counseling [] Bereavement support [] Provided bereavement packet [] Provided Bible/devotional materials [] Provided toy/stuffed animal, coloring book to patient or family member [] Provided Communion [] Anointing/[employer] [] Salvation [x] Completed spiritual assessment [] Other: Impact on Illness or Injury [] Angry [] Fearful [] Anxious [] Often cries [] Exhaustion [] Unable to work [] Unable to attend alevism [] Unable to walk/stand [] Unable to read [] Unable to drive [] Unable to eat/drink [] Unable to sleep [] Unable to be with family [] Patient intubated [] Other: Summary Time spent with patient
--- NOTE | 2022-11-16 11:35 | PC.NURSE ---
Discharge Pt given discharge instructions. All questions were answered. Pt dressed himself and his family has all of his belongings.
== END 2022-11-16 11:34 | disposition home or self-care (01) ==
LOC: CCL 06:02 → ICU 10:19
PROVIDERS: PCP Family Medicine; Visit Provider Internal Medicine
DX: I25.110 Atherosclerotic heart disease of native coronary artery with unstable angina pectoris (principal); I10 Essential (primary) hypertension; N40.0 Benign prostatic hyperplasia without lower urinary tract symptoms; J44.9 Chronic obstructive pulmonary disease, unspecified; K21.9 Gastro-esophageal reflux disease without esophagitis; Z86.14 Personal history of Methicillin resistant Staphylococcus aureus infection; F17.210 Nicotine dependence, cigarettes, uncomplicated; E11.42 Type 2 diabetes mellitus with diabetic polyneuropathy
CPT/HCPCS: 36415; 36416; 80048; 82962; 85025; 85347; 85610; 93454; 96361; 96365; 96367; 99152; 99153; C1725; C1769; C1874; C1887; C1894; C9600; J1644; J2250; J3010; J3490; J7030; Q0163; Q9967

== ENCOUNTER → 2022-12-01 15:20 | Outpatient (BNVA) | payer MEDICARE, MEDICAID, SELFPAY | PROVIDERS: PCP Family Medicine; Visit Provider Podiatrist Foot & Ankle Surgery | DX: I73.9 Peripheral vascular disease, unspecified (principal); L84 Corns and callosities; E11.42 Type 2 diabetes mellitus with diabetic polyneuropathy; L60.3 Nail dystrophy; E11.8 Type 2 diabetes mellitus with unspecified complications | CPT/HCPCS: 11056; 11721 ==

== ENCOUNTER 2022-12-13 09:30 | Emergency (ER) | payer MEDICARE, MEDICAID, SELFPAY ==
[2022-12-13 09:32] VITALS: BP 112/81; PULSE 101; RESP 19; TEMP 36.6; O2SAT 98; BMI 18.8
--- NOTE | 2022-12-13 09:41 | W.ED.WEAKNES ---
HPI - Weakness General: Chief complaint: Weakness Stated complaint: Weakness and sick Time Seen by Provider: 12/13/22 09:32 Source: patient Mode of arrival: ambulatory History of Present Illness: 67-year-old male presents to the emergency room complaining of nausea and generally not feeling well. He has not had any vomiting or diarrhea but he has been very nauseous. He ate breakfast yesterday and has not felt like eating since then he has been very weak and tired he denies any cough or shortness of breath. He has had a couple episodes of dry heaving but has not actually brought anything up. He denies any medic easy melena hematemesis coffee-ground emesis denies any hematuria. No fever sweats or chills no anosmia. MD Complaint: generalized weakness Onset (ago): day(s) Duration: intermittent Location: generalized Relieving factors: none Exacerbating factors: none Associated symptoms: Denies chest pain, chills, confusion, melena, decreased appetite, diaphoresis, dysuria, easy bruising, fever(s), headache(s), myalgias, nausea, rash, short of breath, syncope or vomiting Review of Systems Const: Denies: fever(s), chills, fatigue, malaise or diaphoresis ENMT: Denies: throat pain, ear or mastoid pain, nasal discharge or nasal congestion Card: Denies: chest pain or syncope Resp: Denies: dyspnea, productive cough or non-productive cough GI: Denies: abdominal pain, nausea, vomiting or melena : Denies: flank pain, dysuria, urinary frequency or urinary urgency Musc: Denies: neck pain or back pain Skin/Breast: Denies: rash or pruritus Neuro: Denies: headache(s) or confusion Fareed/Lymph: Denies: easy bruising PFSH ED PFSH: Medical History Anemia BPH with obstruction/lower urinary tract symptoms COPD (chronic obstructive pulmonary disease) Dyslipidemia Essential hypertension GERD (gastroesophageal reflux disease) History of MRSA infection Nicotine dependence, cigarettes, uncomplicated Peripheral arterial disease Peripheral neuropathy Psychiatric care Schizoaffective disorder, depressive type Type 2 diabetes mellitus Surgical History H/O colonoscopy yrs ago H/O esophagogastroduodenoscopy H/O foot surgery x 2 for diabetic foot ulcer History of eye surgery x3 History of surgery on arm Multiple procedures on the right arm related to MRSA infection S/P angioplasty Angioplasty with stent placement to the right leg Status post femoral-popliteal bypass surgery Left femoropopliteal bypass in 2012 with redo bypass in 2013 Family History Family/Other Stroke Cancer Diabetes Hypertension Unknown Cancer Father , at age 59 Alcoholic Mother Lung disease Stroke Denies family history of Anesthesia complication Bleeding disorder Social History Smoking and tobacco status: current every day smoker Alcohol intake: former Household members: other Details: room mate Marital status: Current occupational status: disabled History of recent travel: No Current gender identity: Male Physical Exam Const: GENERAL APPEARANCE: cooperative and comfortable ORIENTATION/CONSCIOUSNESS: Yes awake, Yes oriented to person, Yes oriented to place and Yes oriented to time HENMT: COMMON NORMALS: normocephalic, atraumatic and hearing grossly normal bilaterally HEAD & SCALP: normocephalic and atraumatic Eye: COMMON NORMALS: Equal, round and reactive pupils present, EOMs intact bilaterally, conjunctivae normal and no scleral icterus CONJUNCTIVA: Yes conjunctivae normal PUPIL: Yes Equal, round and reactive pupils present Neck/C-Spine: COMMON NORMALS: no lymphadenopathy Resp: COMMON NORMALS: normal respiratory effort, No retractions, No use of accessory muscles and clear to auscultation bilaterally AUSCULTATION: clear to auscultation bilaterally Cardio: COMMON NORMALS: regular rate, regular rhythm and No murmurs present (Cardio) RATE: regular rate RHYTHM: regular rhythm GI: COMMON NORMALS: Soft to palpation and No hepatosplenomegaly present AUSCULTATION: Yes normoactive bowel sounds PALPATION: Yes Soft to palpation, No Tenderness to palpation present (GI), No Guarding due to palpation present (GI) and Yes No hepatosplenomegaly present Extremity: COMMON NORMALS: normal to inspection, capillary refill normal, no clubbing, cyanosis or edema, no calf tenderness and no pedal edema Neuro: SENSORIUM/ORIENTATION: Yes oriented to person, Yes oriented to place and Yes oriented to time Skin: COMMON NORMALS: no rashes or lesions noted GENERAL SKIN EXAM: no rashes or lesions noted Course Vital Signs: Vital signs: Vital Signs Temperature 97.8 F 12/13/22 09:32 Pulse Rate 101 H 12/13/22 09:32 Respiratory Rate 19 H 12/13/22 09:32 Blood Pressure 127/73 12/13/22 12:19 Pulse Oximetry 97 12/13/22 12:19 Oxygen Delivery Me thod 12/13/22 10:06 MDM - Weakness Medical Decision Making Labs imaging and EKG reviewed no acute findings EKG did not have any acute ST changes. He is feeling somewhat better we will discharge him home clinical diet 24 to 48 hours promethazine as needed recheck if not improving. COVID and flu are negative. Medical Records I reviewed the patient's medical records. Lab Data I reviewed the patient's lab results. 12/13/22 09:55 12/13/22 09:55 Radiology Impressions Chest X-Ray 12/13/22 09:42 Impression: Hyperinflation. Laboratory Results WBC 7.7 10^3/uL (4.0-10.0) 12/13/22 09:55 RBC 3.66 10^6/uL (4.1-5.3) L 12/13/22 09:55 Hgb 11.2 g/dL (11.7-16.6) L 12/13/22 09:55 Hct 33.5 % (42.0-52.0) L 12/13/22 09:55 MCV 91.5 fl (80-94) 12/13/22 09:55 MCH 30.6 pg (28.0-34.0) 12/13/22 09:55 MCHC 33.4 g/dL (30.0-36.0) 12/13/22 09:55 RDW 13.5 % (12.1-15.1) 12/13/22 09:55 Plt Count 341 10^3/cmm (130-400) 12/13/22 09:55 MPV 8.5 fL (7.4-10.4) 12/13/22 09:55 Neut % (Auto) 61.6 % 12/13/22 09:55 Lymph % (Auto) 22.2 % 12/13/22 09:55 [place] % (Auto) 6.1 % 12/13/22 09:55 Eos % (Auto) 9.2 % 12/13/22 09:55 Baso % (Auto) 0.5 % 12/13/22 09:55 Neut # (Auto) 4.75 10^3/uL (1.8-7.7) 12/13/22 09:55 Lymph # (Auto) 1.7 10^3/uL (0.8-4.8) 12/13/22 09:55 [place] # (Auto) 0.5 10^3/uL (0.2-0.9) 12/13/22 09:55 Eos # (Auto) 0.7 10^3/uL (0.0-0.8) 12/13/22 09:55 Baso # (Auto) 0.0 10^3/uL (0.0-0.1) 12/13/22 09:55 Nucleated RBC % (auto) 0 % 12/13/22 09:55 Nucleated RBCs # 0.0 /100WBC 12/13/22 09:55 Sodium 133 mmol/L (136-145) L 12/13/22 09:55 Potassium 4.8 mmol/L (3.5-5.1) 12/13/22 09:55 Chloride 100 mmol/L (98-107) 12/13/22 09:55 Carbon Dioxide 24 mmol/L (22-29) 12/13/22 09:55 Anion Gap 13.8 (5-19) 12/13/22 09:55 BUN 17 mg/dL (8-23) 12/13/22 09:55 Creatinine 0.9 mg/dL (0.7-1.2) 12/13/22 09:55 GFR Calculation 84.2 mL/min (90-130) L 12/13/22 09:55 Glucose 90 mg/dL (65-115) 12/13/22 09:55 Calculated Osmolality 277 mOsm/kg (285-295) L 12/13/22 09:55 Calcium 9.2 mg/dL (8.5-10.5) 12/13/22 09:55 Total Bilirubin 0.2 mg/dL (0.15-1.2) 12/13/22 09:55 AST 10 U/L (0-40) 12/13/22 09:55 ALT 10 U/L (0-41) 12/13/22 09:55 Alkaline Phosphatase 108 U/L (40-130) 12/13/22 09:55 Total Protein 7.4 g/dL (6.6-8.7) 12/13/22 09:55 Albumin 3.9 g/dL (3.5-5.2) 12/13/22 09:55 Globulin 3.5 g/dL (1.3-4.6) 12/13/22 09:55 Nasal Influ A H1 2009 PCR Not detected (NOT DETECT) 12/13/22 09:55 Coronavirus 229E (PCR) Not detected (NOT DETECT) 12/13/22 09:55 Influenza A (H1) PCR Not detected (NOT DETECT) 12/13/22 09:55 Influenza A (H3) PCR Not detected (NOT DETECT) 12/13/22 09:55 Influenza Type A Ag Cancelled 12/13/22 09:55 Influenza Type A (PCR) Not detected (NOT DETECT) 12/13/22 09:55 Influenza Type B Ag Cancelled 12/13/22 09:55 Influenza Type B (PCR) Not detected (NOT DETECT) 12/13/22 09:55 SARS-CoV-2 (PCR) Not detected (NOT DETECT) 12/13/22 09:55 Discharge Plan Discharge Patient Disposition: Home Clinical Impression: Gastroenteritis, Weakness Condition: Stable Prescriptions: New ondansetron HCl 4 mg tablet 4 mg PO Q6H PRN (Reason: nausea and vomiting) Qty: 20 0RF No Action (DME) Diabetic shoes with 3 sets of insoles See Rx Instructions .Route .MEDSUPPLY Qty: 1 0RF Rx Instructions: As directed by PAIGE&O gabapentin 300 mg capsule 300 mg PO TID tamsulosin 0.4 mg capsule 0.8 mg PO BEDTIME Rx Instructions: TAKES 2 PILLS AT HS ascorbic acid (vitamin C) 500 mg capsule 500 mg PO EVERY OTHER DAY pravastatin 80 mg tablet 80 mg PO DAILY finasteride 5 mg tablet 5 mg PO DAILY ferrous sulfate 325 mg (65 mg iron) tablet 325 mg PO .every other day buspirone 15 mg tablet 30 mg PO BID Qty: 120 4RF Rx Instructions: Take two tablets twice per day bupropion HCl 300 mg tablet extended release 24 hr 300 mg PO QAM Qty: 90 2RF Rx Instructions: Take one tablet every morning furosemide [Lasix] 20 mg tablet 20 mg PO DAILY Qty: 90 3RF pantoprazole 20 mg tablet,delayed release (DR/EC) 20 mg PO BID Qty: 180 3RF docusate sodium 100 mg Tablet 100 mg PO BID PRN (Reason: Constipation) aspirin 81 mg Tablet,Delayed Release (Dr/Ec) 81 mg PO DAILY Qty: 90 3RF clopidogrel 75 mg Tablet 75 mg PO DAILY Qty: 90 3RF Remeron 15 mg tablet 15 mg PO BEDTIME Rx Instructions: Take one tablet at bedtime aripiprazole 15 mg tablet 15 mg PO DAILY Rx Instructions: Take one tablet every morning Discharge Orders: Discharge ED (Routine); Ordered 12/13/22 Ordered By: Russ Barnes Referrals: Fern Sauceda DO [Primary Care Provider] - Discharge Diet: Clear Liquid Discharge Activity: Increase activity as tolerated Patient Instructions: Opioid Safety, Pain Management Activity Restrictions/Additional Instructions: Supportive cares Tylenol or Profen as needed. Labs were normal your exam is unremarkable recommend clinical diet 24 to 48 hours and advance as tolerated you can use the antiemetic as needed. We will contact you the results of your fluid COVID swabs. Your vital signs are stable if you do have these they could explain why you are having symptoms but would not change your disposition, you would not be admitted to the hospital at this time for those issues. Coding Level of Care Code ED Professor Of Business for Becca Oliver Exam Comprehensive
--- NOTE | 2022-12-13 09:42 | XR_ITS ---
WS: [id number] Portable AP upright chest, 12/13/2022 Clinical Data: dyspnea/cough Comparison: Portable chest, 01/13/2022 Findings: No nodules, masses or effusions are seen. The heart is normal. The pulmonary vascularity is not increased. No pneumonia or pneumothorax is seen. The diaphragms are flattened. There is minimal left carotid bifurcation calcification. XR/XR chest 1V portable [id number] Impression: Hyperinflation.
--- NOTE | 2022-12-13 09:44 | ECG_ITS ---
[facility] Test Date: 2022-12-13 Pat Name: Hussein Fitch Department: Room: Gender: Male Civil Engineering Intern: : 1955 Requested By: Russ Moran Order Number: [id number] Avinash MD: Kashif Mejias M.D. Measurements Intervals [place] Rate: 89 P: 82 AK: 169 QRS: 99 QRSD: 97 T: 83 QT: 368 QTc: 449 Interpretive Statements SINUS RHYTHM BORDERLINE RIGHT AXIS DEVIATION [QRS AXIS > 90] Compared to ECG 01/13/2022 18:48:45 No significant changes Electronically Signed On 12-13-2022 9:56:36 DRIVER SUPERVISOR by Kashif Mejias M.D. [id number]
[2022-12-13 10:04] LABS: Basophils % 0.5 %; Eosinophils # 0.7 10^3/uL (0.0-0.8); Eosinophils % 9.2 %; Hematocrit 33.5 % (42.0-52.0); Hemoglobin 11.2 g/dL (11.7-16.6); Lymphocytes # 1.7 10^3/uL (0.8-4.8); Lymphocytes % 22.2 %; Mean Corpuscular HGB Conc 33.4 g/dL (30.0-36.0); Mean Corpuscular Hemoglobin 30.6 pg (28.0-34.0); Mean Corpuscular Volume 91.5 fl (80-94); Mean Platelet Volume 8.5 fL (7.4-10.4); Monocytes # 0.5 10^3/uL (0.2-0.9); Monocytes % 6.1 %; Neutrophils # 4.75 10^3/uL (1.8-7.7); Neutrophils % 61.6 %; Nucleated Red Blood Cells % 0 %; Platelet Count 341 10^3/cmm (130-400); Red Blood Count 3.66 10^6/uL (4.1-5.3); Red Cell Distribution Width 13.5 % (12.1-15.1); White Blood Count 7.7 10^3/uL (4.0-10.0)
[2022-12-13 10:06] VITALS: BP 118/74; O2SAT 97
[2022-12-13 10:27] LABS: Alanine Aminotransferase 10 U/L (0-41); Albumin Level 3.9 g/dL (3.5-5.2); Alkaline Phosphatase 108 U/L (40-130); Anion Gap 13.8 (5-19); Aspartate Amino Transferase 10 U/L (0-40); Blood Urea Nitrogen 17 mg/dL (8-23); Calcium 9.2 mg/dL (8.5-10.5); Carbon Dioxide 24 mmol/L (22-29); Chloride 100 mmol/L (98-107); Globulin 3.5 g/dL (1.3-4.6); Glomerular Filtration Rate 84.2 mL/min (90-130); Glucose 90 mg/dL (65-115); Osmolality Calculated 277 mOsm/kg (285-295); Potassium 4.8 mmol/L (3.5-5.1); Sodium 133 mmol/L (136-145); Total Bilirubin 0.2 mg/dL (0.15-1.2); Total Protein 7.4 g/dL (6.6-8.7)
[2022-12-13 12:01] LABS: Adenovirus Not Detected (NOT DETECT); Chlamydia Pneumoniae Not Detected (NOT DETECT); Coronavirus 229E,HKU1,NL63,OC4 Not Detected (NOT DETECT); Human Metapneumovirus Not Detected (NOT DETECT); Human Rhinovirus/Enterovirus Not Detected (NOT DETECT); Influenza A Not Detected (NOT DETECT); Influenza A H1 Not Detected (NOT DETECT); Influenza A H1-2009 Not Detected (NOT DETECT); Influenza A H3 Not Detected (NOT DETECT); Influenza B Not Detected (NOT DETECT); Mycoplasma Pneumoniae Not Detected (NOT DETECT); Parainfluenza Virus Type 1 Not Detected (NOT DETECT); Parainfluenza Virus Type 2 Not Detected (NOT DETECT); Parainfluenza Virus Type 3 Not Detected (NOT DETECT); Parainfluenza Virus Type 4 Not Detected (NOT DETECT); Respiratory Syncytial Virus A Not Detected (NOT DETECT); Respiratory Syncytial Virus B Not Detected (NOT DETECT); SARS-COV-2 Not Detected (NOT DETECT)
[2022-12-13 12:06] LABS: Influenza A Not Detected (NOT DETECT); Influenza A H1 Not Detected (NOT DETECT); Influenza A H1-2009 Not Detected (NOT DETECT); Influenza A H3 Not Detected (NOT DETECT); Influenza B Not Detected (NOT DETECT); Results from Genmark
[2022-12-13 12:19] VITALS: BP 127/73; O2SAT 97
== END 2022-12-13 12:19 | disposition home or self-care (01) ==
PROVIDERS: Emergency Provider Family Medicine; PCP Family Medicine
DX: K52.9 Noninfective gastroenteritis and colitis, unspecified (principal); R53.1 Weakness; Z79.82 Long term (current) use of aspirin; Z79.02 Long term (current) use of antithrombotics/antiplatelets; Z20.822 Contact with and (suspected) exposure to COVID-19; F17.210 Nicotine dependence, cigarettes, uncomplicated; J44.9 Chronic obstructive pulmonary disease, unspecified; E78.5 Hyperlipidemia, unspecified; I10 Essential (primary) hypertension; E11.9 Type 2 diabetes mellitus without complications
CPT/HCPCS: 71045; 80053; 85025; 87631; 87635; 93005; 99285

== ENCOUNTER → 2022-12-14 13:48 | Outpatient (BNVA) | payer MEDICARE, MEDICAID, OTHER, SELFPAY | PROVIDERS: PCP Family Medicine; Visit Provider Nurse Practitioner Psychiatric/Mental Health | DX: Z79.899 Other long term (current) drug therapy (principal) | CPT/HCPCS: 80061; 83036 ==

== ENCOUNTER → 2022-12-27 12:40 | Outpatient (BNVA) | payer MEDICARE, MEDICAID, SELFPAY | PROVIDERS: PCP Family Medicine; Visit Provider Internal Medicine | DX: I10 Essential (primary) hypertension (principal); I73.9 Peripheral vascular disease, unspecified; J44.9 Chronic obstructive pulmonary disease, unspecified; E11.9 Type 2 diabetes mellitus without complications; I25.10 Atherosclerotic heart disease of native coronary artery without angina pectoris; Z79.84 Long term (current) use of oral hypoglycemic drugs; F17.200 Nicotine dependence, unspecified, uncomplicated | CPT/HCPCS: 99214 ==

== ENCOUNTER → 2023-01-13 14:07 | Outpatient (BNVA) | payer MEDICARE, MEDICAID, SELFPAY | PROVIDERS: PCP Family Medicine; Visit Provider Podiatrist Foot & Ankle Surgery | DX: E11.8 Type 2 diabetes mellitus with unspecified complications (principal); L84 Corns and callosities; I73.9 Peripheral vascular disease, unspecified; E11.42 Type 2 diabetes mellitus with diabetic polyneuropathy; L60.3 Nail dystrophy | CPT/HCPCS: 11056; 11721 ==

== ENCOUNTER 2023-01-25 10:31 | Oncology outpatient (recurring) (ONCR) | payer MEDICARE, MEDICAID, SELFPAY ==
[2023-01-25 11:02] LABS: Basophils # 0.1 10^3/uL (0.0-0.1); Eosinophils % 22.5 %; Hematocrit 31.8 % (42.0-52.0); Hemoglobin 10.2 g/dL (11.7-16.6); Lymphocytes # 1.8 10^3/uL (0.8-4.8); Lymphocytes % 20.8 %; Mean Corpuscular HGB Conc 32.1 g/dL (30.0-36.0); Mean Corpuscular Hemoglobin 30.6 pg (28.0-34.0); Mean Corpuscular Volume 95.5 fl (80-94); Mean Platelet Volume 8.8 fL (7.4-10.4); Monocytes # 0.5 10^3/uL (0.2-0.9); Monocytes % 5.7 %; Neutrophils % 49.5 %; Nucleated Red Blood Cells % 0 %; Platelet Count 308 10^3/cmm (130-400); Red Blood Count 3.33 10^6/uL (4.1-5.3); Red Cell Distribution Width 13.4 % (12.1-15.1); White Blood Count 8.7 10^3/uL (4.0-10.0)
[2023-01-25 11:16] LABS: Alanine Aminotransferase 11 U/L (0-41); Albumin Level 3.8 g/dL (3.5-5.2); Alkaline Phosphatase 95 U/L (40-130); Aspartate Amino Transferase 13 U/L (0-40); Blood Urea Nitrogen 20 mg/dL (8-23); Calcium 8.8 mg/dL (8.5-10.5); Carbon Dioxide 27 mmol/L (22-29); Chloride 98 mmol/L (98-107); Ferritin 44 ng/mL (30-400); Glomerular Filtration Rate 96.1 mL/min (90-130); Glucose 106 mg/dL (65-115); Iron 135 ug/dL (59-158); Osmolality Calculated 283 mOsm/kg (285-295); Percent Saturation 48.5 % (20-50); Sodium 135 mmol/L (136-145); Total Bilirubin 0.2 mg/dL (0.15-1.2); Total Iron Binding Capacity 278 mcg/dl; Total Protein 6.8 g/dL (6.6-8.7); Unsaturated Iron Binding 143 ug/dL (112-347)
== END 2023-01-25 23:59 | disposition home or self-care (01) ==
PROVIDERS: Nurse Practitioner Family; PCP Family Medicine; Visit Provider Internal Medicine Medical Oncology
DX: E11.42 Type 2 diabetes mellitus with diabetic polyneuropathy; Z79.899 Other long term (current) drug therapy; D64.9 Anemia, unspecified
CPT/HCPCS: 36415; 80053; 82728; 83540; 83550; 85025; 99213

== ENCOUNTER → 2023-04-05 12:24 | Outpatient (BNVA) | payer MEDICARE, MEDICAID, OTHER, SELFPAY | PROVIDERS: PCP Family Medicine; Visit Provider Podiatrist Foot & Ankle Surgery | DX: E11.8 Type 2 diabetes mellitus with unspecified complications (principal); I73.9 Peripheral vascular disease, unspecified; L84 Corns and callosities; L60.3 Nail dystrophy; E11.42 Type 2 diabetes mellitus with diabetic polyneuropathy | CPT/HCPCS: 11056; 11721 ==

== ENCOUNTER 2023-04-27 12:14 | Oncology outpatient (recurring) (ONCR) | payer MEDICARE, MEDICAID, SELFPAY ==
[2023-04-27 12:25] VITALS: BP 126/72; PULSE 16; RESP 91; TEMP 36.9; O2SAT 98
[2023-04-27 12:35] LABS: Basophils # 0.1 10^3/uL (0.0-0.1); Basophils % 0.8 %; Eosinophils # 1.3 10^3/uL (0.0-0.8); Eosinophils % 14.1 %; Hematocrit 33.8 % (42.0-52.0); Hemoglobin 11.1 g/dL (11.7-16.6); Lymphocytes # 2.2 10^3/uL (0.8-4.8); Lymphocytes % 24.2 %; Mean Corpuscular HGB Conc 32.8 g/dL (30.0-36.0); Mean Corpuscular Volume 88.3 fl (80-94); Mean Platelet Volume 9.1 fL (7.4-10.4); Monocytes # 0.5 10^3/uL (0.2-0.9); Monocytes % 5.4 %; Neutrophils # 4.95 10^3/uL (1.8-7.7); Neutrophils % 55.3 %; Nucleated Red Blood Cells % 0 %; Platelet Count 275 10^3/cmm (130-400); Red Blood Count 3.83 10^6/uL (4.1-5.3); Red Cell Distribution Width 12.8 % (12.1-15.1)
[2023-04-27 12:55] LABS: Alanine Aminotransferase 11 U/L (0-41); Albumin Level 4.2 g/dL (3.5-5.2); Alkaline Phosphatase 109 U/L (40-130); Anion Gap 14.8 (5-19); Aspartate Amino Transferase 13 U/L (0-40); Blood Urea Nitrogen 27 mg/dL (8-23); Carbon Dioxide 27 mmol/L (22-29); Chloride 98 mmol/L (98-107); Ferritin 41 ng/mL (30-400); Globulin 3.3 g/dL (1.3-4.6); Glomerular Filtration Rate 60.2 mL/min (90-130); Glucose 120 mg/dL (65-115); Iron 31 ug/dL (59-158); Osmolality Calculated 286 mOsm/kg (285-295); Percent Saturation 9.1 % (20-50); Potassium 4.8 mmol/L (3.5-5.1); Sodium 135 mmol/L (136-145); Total Bilirubin 0.2 mg/dL (0.15-1.2); Total Iron Binding Capacity 340 mcg/dl; Total Protein 7.5 g/dL (6.6-8.7); Unsaturated Iron Binding 309 ug/dL (112-347)
== END 2023-04-27 23:59 | disposition home or self-care (01) ==
PROVIDERS: Nurse Practitioner Family; PCP Family Medicine; Visit Provider Internal Medicine Medical Oncology
DX: D50.9 Iron deficiency anemia, unspecified (principal); F17.210 Nicotine dependence, cigarettes, uncomplicated; Z79.899 Other long term (current) drug therapy; R53.1 Weakness; R53.83 Other fatigue; R06.02 Shortness of breath; E86.0 Dehydration
CPT/HCPCS: 36415; 80053; 82728; 83540; 83550; 85025; 99214

== ENCOUNTER 2023-05-04 22:56 | Emergency (ER) | payer MEDICARE, MEDICAID, SELFPAY ==
[2023-05-04 22:59] VITALS: BP 151/73; PULSE 89; RESP 16; TEMP 36.5; O2SAT 98
[2023-05-04 23:07] VITALS: BP 167/74; PULSE 90; RESP 16; O2SAT 96
--- NOTE | 2023-05-04 23:11 | ED_ITS ---
HPI - Ear Problem General: Chief complaint: Ear Stated complaint: hearing aid stuck in left ear Time Seen by Provider: 05/04/23 23:02 Source: patient Mode of arrival: ambulatory Limitations: no limitations History of Present Illness: 60-year-old male states that he had taken his left hearing aid out and the plastic piece on the and is now stuck in his left ear canal he states is not able to remove it at home has a little discomfort denies any worsening improving factors. Associated symptoms: Reports ear or mastoid pain; Denies fever(s), headache(s) or neck pain Review of Systems Const: Denies: fever(s) ENMT: Reports: ear or mastoid pain Card: Denies: chest pain Resp: Denies: dyspnea GI: Denies: abdominal pain Musc: Denies: neck pain Skin/Breast: Denies: rash Neuro: Denies: headache(s) PFSH ED PFSH: Medical History Anemia BPH with obstruction/lower urinary tract symptoms COPD (chronic obstructive pulmonary disease) Dyslipidemia Essential hypertension GERD (gastroesophageal reflux disease) History of MRSA infection Nicotine dependence, cigarettes, uncomplicated Peripheral arterial disease Peripheral neuropathy Psychiatric care Schizoaffective disorder, depressive type Type 2 diabetes mellitus Surgical History H/O colonoscopy yrs ago H/O esophagogastroduodenoscopy H/O foot surgery x 2 for diabetic foot ulcer History of eye surgery x3 History of surgery on arm Multiple procedures on the right arm related to MRSA infection S/P angioplasty Angioplasty with stent placement to the right leg Status post femoral-popliteal bypass surgery Left femoropopliteal bypass in 2013 with redo bypass in 2014 Family History Family/Other Stroke Cancer Diabetes Hypertension Unknown Cancer Father , at age 59 Alcoholic Mother Lung disease Stroke Denies family history of Anesthesia complication Bleeding disorder Social History Smoking and tobacco status: current every day smoker Alcohol intake: former Substance/Drug Use: never Household members: other Details: room mate Marital status: Current occupational status: disabled Current gender identity: Male Physical Exam Const: COMMON NORMALS: no acute distress and patient oriented x3 HENMT: COMMON NORMALS: normocephalic HEAD & SCALP: normocephalic OTHER: Foreign body noted in left ear canal Eye: COMMON NORMALS: conjunctivae normal CONJUNCTIVA: Yes conjunctivae normal Chest: COMMONS NORMALS: normal inspection of the chest Cardio: COMMON NORMALS: regular rate RATE: regular rate GI: INSPECTION: Yes normal to inspection Extremity: COMMON NORMALS: normal to inspection Neuro: COMMON NORMALS: patient oriented x3 Psych: COMMON NORMALS: mental status grossly normal Skin: COMMON NORMALS: no rashes or lesions noted GENERAL SKIN EXAM: no rashes or lesions noted Procedures FB Removal Ear Location: ear canal (L) Foreign Body Suspected: other plastic TM intact pre-procedure: yes Foreign Body Removed: yes Foreign Body Removal Technique: instrumentation Tympanic Membrane Intact Post Procedure: Yes Patient Tolerated Procedure: well Complications: none Course Vital Signs: Vital signs: Vital Signs Temperature 97.7 F 05/04/23 22:59 Pulse Rate 90 05/04/23 23:07 Respiratory Rate 16 05/04/23 23:07 Blood Pressure 167/74 05/04/23 23:07 Pulse Oximetry 96 05/04/23 23:07 Oxygen Delivery Me thod Room Air 05/04/23 22:59 MDM - Ear Medical Decision Making Patient presents here with foreign body to his left ear he had had plastic piece of his hearing aid that was stuck was able to remove easily with alligator forceps he had no injuries from that. Discharge Plan Discharge Patient Disposition: Home Clinical Impression: Foreign body in ear Condition: Stable Prescriptions: No Action (DME) Diabetic shoes with 3 sets of insoles See Rx Instructions .Route .MEDSUPPLY Qty: 1 0RF Rx Instructions: As directed by PAIGE&O gabapentin 300 mg capsule 300 mg PO TID tamsulosin 0.4 mg capsule 0.8 mg PO BEDTIME Rx Instructions: TAKES 2 PILLS AT HS ascorbic acid (vitamin C) 500 mg capsule 500 mg PO EVERY OTHER DAY finasteride 5 mg tablet 5 mg PO DAILY ferrous sulfate 325 mg (65 mg iron) tablet 325 mg PO .every other day aripiprazole 15 mg tablet 15 mg PO .morning Qty: 90 2RF Rx Instructions: Take one tablet every morning budesonide-formoterol [Symbicort] 80-4.5 mcg/actuation HFA aerosol inhaler See Rx Instructions inhalation BID Rx Instructions: Strength unknown - 2 puffs inhaled twice a day; mirtazapine 30 mg tablet 30 mg PO BEDTIME Qty: 30 4RF Rx Instructions: Take one tablet at bedtime buspirone 15 mg tablet 30 mg PO BID Qty: 120 4RF Rx Instructions: Take two tablets twice per day pantoprazole 20 mg tablet,delayed release (DR/EC) 20 mg PO BID Qty: 180 3RF pravastatin 80 mg tablet 80 mg PO DAILY Qty: 90 3RF aspirin 81 mg tablet,delayed release (DR/EC) 81 mg PO DAILY Qty: 90 3RF furosemide [Lasix] 20 mg tablet 20 mg PO DAILY Qty: 90 3RF docusate sodium 100 mg Tablet 100 mg PO BID PRN (Reason: Constipation) clopidogrel 75 mg Tablet 75 mg PO DAILY Qty: 90 3RF ondansetron HCl 4 mg tablet 4 mg PO Q6H PRN (Reason: nausea and vomiting) Qty: 20 0RF Discharge Orders: Discharge ED (Routine); Ordered 05/04/23 Ordered By: Silva Evans Referrals: Diego Glass MD [Primary Care Provider] - 1-3 days Discharge Diet: Advance as tolerated Discharge Activity: Resume usual activity Patient Instructions: Ear Foreign Body (ED) Coding Level of Care Code ED Sports Physical Therapist for Becca Oliver
[2023-05-04 23:16] VITALS: BP 150/69; PULSE 85; RESP 16; O2SAT 94
== END 2023-05-04 23:17 | disposition home or self-care (01) ==
PROVIDERS: Emergency Provider Emergency Medicine; PCP Family Medicine
DX: T16.2XXA Foreign body in left ear, initial encounter (principal); X58.XXXA Exposure to other specified factors, initial encounter; Z79.82 Long term (current) use of aspirin; Z79.02 Long term (current) use of antithrombotics/antiplatelets; F17.210 Nicotine dependence, cigarettes, uncomplicated; J44.9 Chronic obstructive pulmonary disease, unspecified; E78.5 Hyperlipidemia, unspecified; I10 Essential (primary) hypertension; E11.9 Type 2 diabetes mellitus without complications
CPT/HCPCS: 69200; 99282

== ENCOUNTER 2023-05-16 14:30 | Oncology outpatient (recurring) (ONCR) | payer MEDICARE, MEDICAID, SELFPAY ==
[2023-05-05] MEDS: sodium chloride 0.9% 250 ML 75 ML IV (15:45)
[2023-05-05] MEDS: iron sucrose 200 MG in sodium chloride 0.9% (100 ml) 100 ML 220 MG IV (15:47)
[2023-05-05 15:48] VITALS: BP 135/67; PULSE 67; RESP 18; TEMP 36.6; O2SAT 96
[2023-05-05 16:39] VITALS: BP 136/69; PULSE 71; RESP 18; TEMP 35.9; O2SAT 97
[2023-05-09] MEDS: sodium chloride 0.9% 250 ML 100 ML IV (15:30)
[2023-05-09] MEDS: iron sucrose 200 MG in sodium chloride 0.9% (100 ml) 100 ML 220 MG IV (15:30)
[2023-05-09 16:20] VITALS: BP 121/79; PULSE 80; RESP 18; TEMP 36.6; O2SAT 96
[2023-05-11 14:05] VITALS: BP 112/62; PULSE 93; RESP 16; TEMP 36.9; O2SAT 96
[2023-05-11] MEDS: sodium chloride 0.9% 250 ML 75 ML IV (14:20)
[2023-05-11] MEDS: iron sucrose 200 MG in sodium chloride 0.9% (100 ml) 100 ML 220 MG IV (14:26)
[2023-05-11 15:06] VITALS: BP 116/61; PULSE 77; RESP 16; TEMP 36.8; O2SAT 96
[2023-05-13] MEDS: sodium chloride 0.9% 250 ML 100 ML IV (09:17)
[2023-05-13] MEDS: iron sucrose 200 MG in sodium chloride 0.9% (100 ml) 100 ML 220 MG IV (09:18)
[2023-05-13 10:05] VITALS: BP 124/73; PULSE 81; TEMP 36.7; O2SAT 94
[2023-05-16 14:45] VITALS: BP 114/58; PULSE 84; RESP 16; TEMP 36.8; O2SAT 94
[2023-05-16] MEDS: iron sucrose 200 MG in sodium chloride 0.9% (100 ml) 100 ML 220 MG IV (14:56)
[2023-05-16 15:37] VITALS: BP 131/69; PULSE 81; RESP 16; TEMP 37.1; O2SAT 91
== END 2023-05-27 23:59 | disposition home or self-care (01) ==
PROVIDERS: PCP Family Medicine; Visit Provider Internal Medicine Medical Oncology
DX: D50.9 Iron deficiency anemia, unspecified (principal); F17.210 Nicotine dependence, cigarettes, uncomplicated; Z79.899 Other long term (current) drug therapy
CPT/HCPCS: 96365; J1756; J7050

== ENCOUNTER → 2023-05-19 14:28 | Outpatient (BNVA) | payer MEDICARE, MEDICAID, SELFPAY | PROVIDERS: PCP Family Medicine; Visit Provider Nurse Practitioner Family | DX: I73.9 Peripheral vascular disease, unspecified (principal); I25.10 Atherosclerotic heart disease of native coronary artery without angina pectoris; I10 Essential (primary) hypertension; F17.210 Nicotine dependence, cigarettes, uncomplicated | CPT/HCPCS: 99213 ==

== ENCOUNTER → 2023-06-03 08:50 | Outpatient (BNVA) | payer MEDICARE, MEDICAID, SELFPAY | PROVIDERS: PCP Family Medicine; Visit Provider Internal Medicine | DX: I73.9 Peripheral vascular disease, unspecified (principal); E11.621 Type 2 diabetes mellitus with foot ulcer; L97.519 Non-pressure chronic ulcer of other part of right foot with unspecified severity; F17.210 Nicotine dependence, cigarettes, uncomplicated; Z79.84 Long term (current) use of oral hypoglycemic drugs | CPT/HCPCS: 99215 ==

== ENCOUNTER → 2023-06-07 13:44 | Outpatient (BNVA) | payer MEDICARE, MEDICAID, SELFPAY | PROVIDERS: PCP Family Medicine; Visit Provider Podiatrist Foot & Ankle Surgery | DX: E11.42 Type 2 diabetes mellitus with diabetic polyneuropathy (principal); L60.8 Other nail disorders; L84 Corns and callosities; I73.9 Peripheral vascular disease, unspecified; L60.3 Nail dystrophy | CPT/HCPCS: 11055; 11721 ==

== ENCOUNTER 2023-06-17 05:39 | Outpatient (CLI) | payer MEDICARE, MEDICAID, SELFPAY ==
[2023-06-03 10:54] LABS: Basophils # 0.1 10^3/uL (0.0-0.1); Basophils % 0.9 %; Eosinophils # 1.3 10^3/uL (0.0-0.8); Eosinophils % 15.5 %; Hematocrit 34.1 % (42.0-52.0); Hemoglobin 11.2 g/dL (11.7-16.6); Lymphocytes # 1.7 10^3/uL (0.8-4.8); Lymphocytes % 21.5 %; Mean Corpuscular HGB Conc 32.8 g/dL (30.0-36.0); Mean Corpuscular Volume 91.4 fl (80-94); Monocytes # 0.6 10^3/uL (0.2-0.9); Monocytes % 7.2 %; Neutrophils # 4.36 10^3/uL (1.8-7.7); Neutrophils % 54.3 %; Nucleated Red Blood Cells % 0 %; Platelet Count 274 10^3/cmm (130-400); Red Blood Count 3.73 10^6/uL (4.1-5.3); Red Cell Distribution Width 14.4 % (12.1-15.1)
[2023-06-03 11:06] LABS: INR 0.92 (0.83-1.21); Prothrombin Time (Patient) 12.7 Seconds (12.0-15.1)
[2023-06-03 11:10] LABS: Blood Urea Nitrogen 24 mg/dL (8-23); Calcium 9.3 mg/dL (8.5-10.5); Carbon Dioxide 27 mmol/L (22-29); Chloride 99 mmol/L (98-107); Glomerular Filtration Rate 74.3 mL/min (90-130); Glucose 128 mg/dL (65-115); Osmolality Calculated 284 mOsm/kg (285-295); Sodium 134 mmol/L (136-145)
[2023-06-17] VITALS (12 sets, daily range): BP systolic 154–166; BP diastolic 59–81; PULSE 69–102; RESP 10–37; TEMP 36.9; O2SAT 92–98; BMI 20.8
--- NOTE | 2023-06-17 06:00 | XACV_ITS ---
Ht: 175 cm Wt: 64 kg BSA: 1.76 m2 Any Known Allergies: No known allergies Gender: Male : 1955 Exam Type: Invasive Peripheral Vascular Procedure(s): Procedure Description: Peripheral Cath Diagnostic Procedure Procedure Description: Lower extremities' angiography Exam Priority: Routine CROKE, Aysha; Lower Extremity Diagnostic Findings Patient with known severe bilateral peripheral arterial disease with multiple interventions in both legs. Previous femoral-popliteal bypass on the left. Patient with an ulcer on the right leg but worsening pain in the left leg. Angiogram from September of last year was reviewed and revealed a patent bypass graft on the left with an occluded superficial femoral artery. Very poor runoff below the knee which is essentially one-vessel runoff. This vessel is the posterior tibial artery. On the right the superficial femoral artery was patent until the proximal popliteal where it was occluded. The superficial femoral artery contains multiple severe eccentric stenoses. There was very little flow below the right knee. There was some collateral from the profunda but the only vessel which was noted below the right knee is the anterior tibial for short distance. He saw his primary seafood service team member in the office with worsening pain on the left and angiography was recommended. He was told that he is getting an appointment with a vascular surgeon in [place] soon.. The procedure was done from the right common femoral artery. No aortogram was performed. There is moderate diffuse disease and calcification of the right common iliac, external iliac and common femoral artery. The profunda femoris is open but severely diffusely diseased. The superficial femoral artery contains severe diffuse disease with multiple severe stenoses down to the popliteal. The vessel is then occluded. There is some collateral from the SFA itself and from the profunda femoris artery. These collateral vessels are small and do not supply any 1 specific artery below the knee. There are parts of all 3 of the below the knee vessels which fill slightly. On the left, the common iliac, external iliac and common femoral arteries are all patent but moderately diffusely diseased and calcified. There is a graft which originates in the common femoral artery and extends to the popliteal artery. The graft itself is patent. There appears to be a stenosis just at the insertion point of the graft. The superficial femoral artery is completely occluded. The insertion point also suggests a stenosis there. These findings were present in September of last year. The popliteal after the insertion point is completely occluded. There are small collateral vessels which travel below the knee. The one vessel which can be seen by collateral flow below the left knee is the posterior tibial artery. There are other small collateralized arteries which appear as well. Conclusions Severe bilateral lower extremity peripheral arterial disease. Patent femoral-popliteal bypass graft on the left with lesions at both the insertion and origination point. Occluded left superficial femoral artery and popliteal artery. Poor flow below the left knee with collateralized vessels only. Occluded distal superficial femoral artery on the right with minimal collateral flow below the right knee. Recommendations Vascular surgery appointment. Access Site Site: Right Femoral artery Sheath Size: 6 Fr Hemost... Method: Suture Hemost... Success: Successful Procedure Details Findings Procedure Consent Obtained. Pre-Procedure Time Out. Identified patient by full name and date of as verbalized by the patient/guarantor. Does the consent match the physician's order: Yes. Accurate & Complete Informed Consent: Yes. Inpatient/Outpatient History & Physical on Chart: Yes. If H&P is completed, is and addenduem needed: No; If yes, is the addendum complete: N/A. Visualize and Verify Site with Patient/Guarantor: N/A. Relevant Radiology Images available: Yes. Pre-op teaching completed and patient verbalized understanding. The risks, benefits, and alternatives of sedation and/or procedure were discussed by physician. The patient agrees to continue. Procedure started. IV Site on Arrival: 18 gauge in the right anticubital. IV Fluids: 0.9% NaCl at KVO. 0 mL infused prior to technology lab teacher. Oxygen started at 2liters/min via nasal canula. Pre Procedural Pulses: bilateral dorsalis pedis was Doppled. Pre Procedural Pulses: bilateral posterior tibial was Doppled. Pre Procedural Pulses: bilateral radial was 3+. bilateral groins was prepped with chloroprep then draped in the usual sterile fashion. Physician notified. Baseline sample Acquired. HR: 98 BPM. Physician arrived. Physician scrubbed in. Immediate Pre-Procedure Time Out. Correct Patient: Yes; Correct Procedure: Yes; Correct Site: Yes; Correct Patient Position: Yes; Correct Supplies: Yes; Dried Flammable Prep: Yes; Blood Products Available: N/A;. Lidocaine 1% infiltrated to the right groin. Arterial access obtained. A 5Fr RIM catheter in over glidewire. Left common iliac selected and arteriogram with runoff performed @ 10 mL/sec for a total of 30 mL. Catheter out. Sheath injected in Right common femoral artery and runoff performed. Dr. Olmstead scrubbed out. A Suture was successful obtaining hemostatsis at the Right Femoral artery insertion site. Arterial sheath flushed and connected to tranducer and pressure bag with heparinized saline. Post Procedure: Pulses reassessed and unchanged. PERRLA. Strong, equal hand compound worker bilaterally. No VTE prophylaxis required. Medication's Wasted: Heparin = 4000 units. Medication's Wasted: Other = Fentanyl 25 mcg Versed 1 mg. Total IV fluids: 27 mL. Complications: None. Post-op diagnosis: PAD. Estimated blood loss: 5mL-10mL. Responsiveness - Normal response to verbal stimuli; alert and oriented, PERRLA. Airway - Unaffected, no intervention required; spontaneous ventilation. Circulation: W/N/L, pulses unchanged. Nausea/Vomiting: No. Vital chart was stopped. Procedure completed. Patient transferred by bed to ICU. Procedure Medications Start: 6:45 AM Stop: 6:45 AM Medication: Versed Amount: 1 mg Route: I.V. Start: 6:45 AM Stop: 6:45 AM Medication: Fentanyl Amount: 50 mcg Route: I.V. Start: 6:49 AM Stop: 6:49 AM Medication: Versed Amount: 1 mg Route: I.V. Start: 6:54 AM Stop: 6:54 AM Medication: Versed 1 mg and Fentanyl 25 mcg Amount: 1 Route: I.V. I, the attending physician, have reviewed and verified all procedure medications. Yes, all medications given per verbal order History/Risk Factors Hypertension: Yes Dyslipidemia: Yes Peripheral Arterial Disease (PAD): Yes Obesity: No Renal Disease: No Prior Interventions PCI: Yes CABG: No Valve Surgery: No Date of PCI: 11/15/2022 Report Signatures Finalized by Dr. Jose Rafael Olmstead MD on 06/17/2023 08:01 AM
[2023-06-17] MEDS: diphenhydrAMINE 50 mg Capsule PO (06:15)
[2023-06-17 06:24] LABS: Glucose Point of Care 131 mg/dL (70-110)
--- NOTE | 2023-06-17 06:30 | P.HPUD_ITS ---
Surgery/Procedure H&P Update DATE OF PROCEDURE: June 17, 2023 DATE H&P PERFORMED: 06/03/23 CHANGES TO PREVIOUS DOCUMENTATION: None. Hussein has severe bilateral peripheral arterial disease and diffuse vascular disease elsewhere. Intervention has been performed multiple times. He saw Dr. Mejias in the office on the seventh and was complaining of worsening pain. He tells me today that his left leg is worse. He also tells me that he has an appointment with a vascular surgeon in [place]. Recently he developed a ulcer on the right foot. He requests that I entered the right common femoral artery and assessed the left leg today. PREOP DIAGNOSIS: PAD PRIMARY INDICATION FOR PROCEDURE: Worsening lower extremity claudication and rest pain with known severe peripheral arterial disease PLANNED PROCEDURE: Operation Date: 06/17/23 07:00 Proposed Procedures p perip angiogram [id number]],I73.9(Not Applicable) - Jose Rafael Olmstead MD
[2023-06-17] MEDS: sodium chloride 0.9% 1,000 ML 100 ML IV (09:00)
--- NOTE | 2023-06-17 11:32 | PM.DCS ---
Discharge Providers Date of Admission: 06/17/23 07:20 Date of Discharge: June 17, 2023 Attending Provider at Admission: Jose Rafael Olmstead MD Attending Provider at Discharge: Jose Rafael Olmstead MD Primary Care Provider: Diego Glass MD Diagnoses at Discharge Discharge Diagnosis (1) Skin ulcer of third toe of right foot: Status: Acute (2) CAD (coronary artery disease): Status: Acute (3) S/P angioplasty: Status: Acute Permanent problem details: Angioplasty with stent placement to the right leg (4) Essential hypertension: Status: Acute (5) Anemia: Status: Acute (6) Tobacco abuse: Status: Acute (7) Peripheral arterial disease: Status: Acute (8) Severe claudication: Status: Acute (9) Status post femoral-popliteal bypass surgery: Status: Acute Permanent problem details: Left femoropopliteal bypass in 2012 with redo bypass in 2013 (10) Diabetic peripheral neuropathy associated with type 2 diabetes mellitus: Status: Acute (11) Nicotine dependence, cigarettes, uncomplicated: Status: Chronic Reason for Visit Reason for Visit: I73.9 Brief History: Hussein is a patient well-known to all of us 68 years old. Lifelong smoker and diabetic with diffuse multilevel vascular disease. History of coronary disease. Longstanding difficulty with peripheral arterial disease with stents in the right leg and femoral-popliteal bypass surgery in the left leg. This had to be redone a year later after the initial graft closed. Recently he has seen Dr. Mejias in the clinic in another peripheral angiogram was scheduled because of worsening lower extremity pain. He had developed an ulcer on his right foot. His most recent peripheral angiogram was in September of last year. The distal superficial femoral artery is occluded on the right. There is poor runoff below the knee with no vessels patent only tiny collaterals. On the left the graft is open however there is a lesion just at the origination of the graft and another lesion at the insertion point. The popliteal is occluded just after the graft inserts. There is likewise very poor runoff of the left below the knee. He was sent back for another angiogram due to worsening symptoms. Hussein told me this morning that his left leg hurts worse than his right leg. He also told me that plans were being made to send him to a vascular surgeon in [place] [facility] Course Hospital Course The angiogram was done through the right common femoral artery. It is essentially identical to that which was noted last fall. On the right, his superficial femoral artery is occluded at the very distal portion where it blends into the popliteal. There is some collateral flow from the [place] SFA and the profunda with very little flow below the knees. On the left the graft is still open with the lesions noted at the origination and insertion points of the graft. The popliteal is occluded right at the insertion of the graft. Similarly, there is very little collateral flow to the distal vessels below the knee. Certainly nothing can be done from an interventional standpoint in this facility. The plan is to continue his medications as is. He will see a vascular surgeon in [place] at some point. He has been instructed to hold his metformin for 2 days. He has been instructed not to lift anything more than 5 pounds for 2 days. He has been instructed to contact us if he notices swelling, pain or bleeding from the insertion site. Physical Exam Narrative: GENERAL: In general he looks comfortable HEENT: Exam within normal limits. NECK: Supple without jugular vein distention. The carotid upstroke is normal without bruits. BACK: Exam normal. LUNGS: Clear. HEART: Regular rate and rhythm. ABDOMEN: Benign without organomegaly or tenderness. EXTREMITIES: No edema. No pulses below the groins. At the time of discharge the insertion point in the right common femoral artery area is flat, dry without bleeding. NEUROLOGIC: Exam normal. SKIN: Unremarkable. Discharge Data Studies Completed and Pending Completed Studies During Hospitalization Category Date Time Status PERSONAL COMPUTER NETWORK ENGINEER request for service Routine Exams 06/17/23 06:00 Completed Laboratory Results WBC 8.0 10^3/uL (4.0-10.0) 06/03/23 10:39 RBC 3.73 10^6/uL (4.1-5.3) L 06/03/23 10:39 Hgb 11.2 g/dL (11.7-16.6) L 06/03/23 10:39 Hct 34.1 % (42.0-52.0) L 06/03/23 10:39 MCV 91.4 fl (80-94) 06/03/23 10:39 MCH 30.0 pg (28.0-34.0) 06/03/23 10:39 MCHC 32.8 g/dL (30.0-36.0) 06/03/23 10:39 RDW 14.4 % (12.1-15.1) 06/03/23 10:39 Plt Count 274 10^3/cmm (130-400) 06/03/23 10:39 MPV 9.0 fL (7.4-10.4) 06/03/23 10:39 Neut % (Auto) 54.3 % 06/03/23 10:39 Lymph % (Auto) 21.5 % 06/03/23 10:39 [place] % (Auto) 7.2 % 06/03/23 10:39 Eos % (Auto) 15.5 % 06/03/23 10:39 Baso % (Auto) 0.9 % 06/03/23 10:39 Neut # (Auto) 4.36 10^3/uL (1.8-7.7) 06/03/23 10:39 Lymph # (Auto) 1.7 10^3/uL (0.8-4.8) 06/03/23 10:39 [place] # (Auto) 0.6 10^3/uL (0.2-0.9) 06/03/23 10:39 Eos # (Auto) 1.3 10^3/uL (0.0-0.8) H 06/03/23 10:39 Baso # (Auto) 0.1 10^3/uL (0.0-0.1) 06/03/23 10:39 Nucleated RBC % (auto) 0 % 06/03/23 10:39 Nucleated RBCs # 0.0 /100WBC 06/03/23 10:39 PT 12.7 Seconds (12.0-15.1) 06/03/23 10:39 INR 0.92 (0.83-1.21) 06/03/23 10:39 APTT 34.0 SECONDS (23.9-36.7) 06/17/23 09:21 Sodium 134 mmol/L (136-145) L 06/03/23 10:39 Potassium 5.0 mmol/L (3.5-5.1) 06/03/23 10:39 Chloride 99 mmol/L (98-107) 06/03/23 10:39 Carbon Dioxide 27 mmol/L (22-29) 06/03/23 10:39 Anion Gap 13.0 (5-19) 06/03/23 10:39 BUN 24 mg/dL (8-23) H 06/03/23 10:39 Creatinine 1.0 mg/dL (0.7-1.2) 06/03/23 10:39 GFR Calculation 74.3 mL/min (90-130) L 06/03/23 10:39 Glucose 128 mg/dL (65-115) H 06/03/23 10:39 POC Glucose 131 mg/dL (70-110) H 06/17/23 06:19 Calculated Osmolality 284 mOsm/kg (285-295) L 06/03/23 10:39 Calcium 9.3 mg/dL (8.5-10.5) 06/03/23 10:39 Vitals Last Vital Signs Temp 98.4 F 06/17/23 06:31 Pulse 69 06/17/23 11:16 Resp 18 06/17/23 07:55 BP 154/59 06/17/23 07:55 Pulse Ox 92 06/17/23 11:16 O2 Del Method Room Air 06/17/23 11:16 Discharge Plan Discharge Patient Disposition: Home Condition: Stable Prescriptions: Continued (DME) Diabetic shoes with 3 sets of insoles See Rx Instructions .Route .MEDSUPPLY Qty: 1 0RF Rx Instructions: As directed by PAIGE&O gabapentin 300 mg capsule 300 mg PO TID tamsulosin 0.4 mg capsule 0.8 mg PO BEDTIME Rx Instructions: TAKES 2 PILLS AT HS ascorbic acid (vitamin C) 500 mg capsule 500 mg PO EVERY OTHER DAY finasteride 5 mg tablet 5 mg PO DAILY ferrous sulfate 325 mg (65 mg iron) tablet 325 mg PO .every other day budesonide-formoterol [Symbicort] 80-4.5 mcg/actuation HFA aerosol inhaler See Rx Instructions inhalation BID Rx Instructions: Strength unknown - 2 puffs inhaled twice a day; mirtazapine 30 mg tablet 30 mg PO BEDTIME Qty: 30 4RF Rx Instructions: Take one tablet at bedtime buspirone 15 mg tablet 30 mg PO BID Qty: 120 4RF Rx Instructions: Take two tablets twice per day metformin 1,000 mg tablet 1,000 mg PO BID aripiprazole [Abilify] 10 mg tablet 10 mg PO .morning Qty: 90 2RF Rx Instructions: Take one tablet every morning pantoprazole 20 mg tablet,delayed release (DR/EC) 20 mg PO BID Qty: 180 3RF pravastatin 80 mg tablet 80 mg PO DAILY Qty: 90 3RF aspirin 81 mg tablet,delayed release (DR/EC) 81 mg PO DAILY Qty: 90 3RF furosemide [Lasix] 20 mg tablet 20 mg PO DAILY Qty: 90 3RF docusate sodium 100 mg Tablet 100 mg PO BID PRN (Reason: Constipation) clopidogrel 75 mg Tablet 75 mg PO DAILY Qty: 90 3RF ondansetron HCl 4 mg tablet 4 mg PO Q6H PRN (Reason: nausea and vomiting) Qty: 20 0RF Discharge Orders: Discharge Order (Routine); Ordered 06/17/23 Ordered By: Jose Rafael Olmstead Referrals: Leonor Brito FNP [Nurse Practitioner] - 7-10 days (Check right groin and chemistry panel. Facilitate referral to vascular surgeon in [place].) Discharge Diet: Diabetic Discharge Activity: Limit activity as instructed Patient Instructions: Opioid Safety Activity Restrictions/Additional Instructions: No lifting over 5 pounds for 2 days. Hold metformin for 2 days. Restart metformin on Tuesday. Discharge Attestations Time Spent in Discharge Care*: greater than 30 min Quality Metrics Clinical Quality Measures [ No reported AMI, CVA or VTE this stay] Coding Level of Care Code 87575 Total time (in minutes) for Discharge: 40 Diagnoses Skin ulcer of third toe of right foot L97.519 CAD (coronary artery disease) I25.10 S/P angioplasty Z98.62 Essential hypertension I10 Anemia D64.9 Tobacco abuse Z72.0 Peripheral arterial disease I73.9 Severe claudication I73.9 Status post femoral-popliteal bypass surgery Z95.828 Diabetic peripheral neuropathy associated with type 2 diabetes mellitus E11.42 Nicotine dependence, cigarettes, uncomplicated F17.210
== END 2023-06-17 17:22 | disposition home or self-care (01) ==
LOC: CCL 05:40 → ICU 07:34
PROVIDERS: PCP Family Medicine; Visit Provider Internal Medicine Cardiovascular Disease
DX: I70.235 Atherosclerosis of native arteries of right leg with ulceration of other part of foot (principal); L97.519 Non-pressure chronic ulcer of other part of right foot with unspecified severity; I25.10 Atherosclerotic heart disease of native coronary artery without angina pectoris; Z98.62 Peripheral vascular angioplasty status; E11.42 Type 2 diabetes mellitus with diabetic polyneuropathy; F17.210 Nicotine dependence, cigarettes, uncomplicated; Z95.828 Presence of other vascular implants and grafts; I10 Essential (primary) hypertension; E78.5 Hyperlipidemia, unspecified; I70.222 Atherosclerosis of native arteries of extremities with rest pain, left leg; E11.52 Type 2 diabetes mellitus with diabetic peripheral angiopathy with gangrene; Z79.84 Long term (current) use of oral hypoglycemic drugs; Z79.82 Long term (current) use of aspirin; Z79.02 Long term (current) use of antithrombotics/antiplatelets
CPT/HCPCS: 36415; 36416; 75716; 80048; 82962; 85025; 85610; 85730; 96365; 99152; C1769; C1887; C1894; J1644; J2250; J3010; J7030; Q0163; Q9967

== ENCOUNTER → 2023-06-22 14:29 | Outpatient (BNVA) | payer MEDICARE, MEDICAID, SELFPAY | PROVIDERS: PCP Family Medicine; Visit Provider Nurse Practitioner Family | DX: I73.9 Peripheral vascular disease, unspecified (principal); I25.10 Atherosclerotic heart disease of native coronary artery without angina pectoris; I10 Essential (primary) hypertension; F17.200 Nicotine dependence, unspecified, uncomplicated | CPT/HCPCS: 36415; 80048; 99214 ==

== ENCOUNTER → 2023-06-27 12:46 | Outpatient (BNVA) | payer MEDICARE, MEDICAID, SELFPAY | PROVIDERS: PCP Family Medicine; Visit Provider Internal Medicine | DX: I73.9 Peripheral vascular disease, unspecified (principal); E11.621 Type 2 diabetes mellitus with foot ulcer; Z79.84 Long term (current) use of oral hypoglycemic drugs; L97.519 Non-pressure chronic ulcer of other part of right foot with unspecified severity; F17.200 Nicotine dependence, unspecified, uncomplicated | CPT/HCPCS: 99214 ==

== ENCOUNTER 2023-07-11 15:00 | Oncology outpatient (recurring) (ONCR) | payer MEDICARE, MEDICAID, SELFPAY ==
[2023-07-04 10:47] VITALS: BP 105/58; PULSE 104; RESP 18; TEMP 37.1; O2SAT 96
[2023-07-04 11:02] LABS: Basophils % 0.6 %; Eosinophils # 1.1 10^3/uL (0.0-0.8); Eosinophils % 14.5 %; Hemoglobin 10.3 g/dL (11.7-16.6); Lymphocytes # 0.9 10^3/uL (0.8-4.8); Lymphocytes % 11.8 %; Mean Corpuscular HGB Conc 33.2 g/dL (30.0-36.0); Mean Corpuscular Hemoglobin 29.9 pg (28.0-34.0); Mean Corpuscular Volume 89.9 fl (80-94); Mean Platelet Volume 8.7 fL (7.4-10.4); Monocytes # 0.6 10^3/uL (0.2-0.9); Monocytes % 8.2 %; Neutrophils # 4.66 10^3/uL (1.8-7.7); Neutrophils % 64.3 %; Nucleated Red Blood Cells % 0 %; Platelet Count 242 10^3/cmm (130-400); Red Blood Count 3.45 10^6/uL (4.1-5.3); Red Cell Distribution Width 14.1 % (12.1-15.1); White Blood Count 7.2 10^3/uL (4.0-10.0)
[2023-07-04 11:31] LABS: Alanine Aminotransferase 13 U/L (0-41); Albumin Level 3.9 g/dL (3.5-5.2); Alkaline Phosphatase 101 U/L (40-130); Anion Gap 15.1 (5-19); Aspartate Amino Transferase 13 U/L (0-40); Blood Urea Nitrogen 24 mg/dL (8-23); Calcium 8.6 mg/dL (8.5-10.5); Carbon Dioxide 21 mmol/L (22-29); Chloride 101 mmol/L (98-107); Glomerular Filtration Rate 74.3 mL/min (90-130); Glucose 123 mg/dL (65-115); Osmolality Calculated 279 mOsm/kg (285-295); Potassium 5.1 mmol/L (3.5-5.1); Sodium 132 mmol/L (136-145); Total Bilirubin 0.2 mg/dL (0.15-1.2); Total Protein 6.9 g/dL (6.6-8.7)
[2023-07-04 11:46] LABS: Ferritin 255 ng/mL (30-400); Iron 49 ug/dL (59-158); Percent Saturation 17.8 % (20-50); Total Iron Binding Capacity 275 mcg/dl; Unsaturated Iron Binding 226 ug/dL (112-347)
[2023-07-04] MEDS: sodium chloride 0.9% 250 ML 100 ML IV (12:51)
[2023-07-04] MEDS: iron sucrose 200 MG in sodium chloride 0.9% (100 ml) 100 ML 220 MG IV (13:15)
[2023-07-04 14:05] VITALS: BP 113/60; PULSE 80; TEMP 36.5; O2SAT 98
[2023-07-06] MEDS: iron sucrose 200 MG in sodium chloride 0.9% (100 ml) 100 ML 220 MG IV (14:24)
[2023-07-06 14:56] VITALS: BP 111/62; PULSE 80; RESP 16; TEMP 36.8; O2SAT 96
[2023-07-11 15:49] VITALS: BP 118/58; PULSE 88; RESP 18; TEMP 36.7; O2SAT 97
[2023-07-11] MEDS: sodium chloride 0.9% 250 ML 75 ML IV (15:53)
[2023-07-11] MEDS: iron sucrose 200 MG in sodium chloride 0.9% (100 ml) 100 ML 220 MG IV (15:55)
[2023-07-11 16:35] VITALS: BP 130/72; PULSE 79; RESP 18; TEMP 36.7; O2SAT 97
== END 2023-07-28 23:59 | disposition home or self-care (01) ==
PROVIDERS: PCP Family Medicine; Visit Provider Internal Medicine Medical Oncology
DX: D64.9 Anemia, unspecified (principal); D50.9 Iron deficiency anemia, unspecified
CPT/HCPCS: 80053; 82728; 83540; 83550; 85025; 96365; 99214; J1756; J7050

== ENCOUNTER → 2023-07-28 07:27 | Outpatient (BNVA) | payer MEDICARE, SELFPAY | PROVIDERS: PCP Family Medicine; Visit Provider Emergency Medicine | DX: R19.7 Diarrhea, unspecified (principal) | CPT/HCPCS: 87506 ==

== ENCOUNTER 2023-08-02 09:01 | Oncology outpatient (recurring) (ONCR) | payer MEDICARE, MEDICAID, OTHER, SELFPAY ==
[2023-08-02 09:32] LABS: Basophils % 0.5 %; Eosinophils # 0.4 10^3/uL (0.0-0.8); Eosinophils % 5.4 %; Hematocrit 32.4 % (37-53); Lymphocytes # 2.1 10^3/uL (0.8-4.8); Lymphocytes % 28.2 %; Mean Corpuscular Hemoglobin 30.9 pg (27-33); Mean Corpuscular Volume 93.6 fl (82-101); Mean Platelet Volume 8.6 fL (7.4-10.4); Monocytes # 0.5 10^3/uL (0.2-0.9); Monocytes % 6.4 %; Neutrophils # 4.33 10^3/uL (1.8-7.7); Neutrophils % 58.7 %; Nucleated Red Blood Cells % 0 %; Platelet Count 309 10^3/cmm (157-399); Red Blood Count 3.46 10^6/uL (3.85-5.65); Red Cell Distribution Width 15.9 % (12.1-15.1); White Blood Count 7.38 10^3/uL (3.29-11.43)
[2023-08-02 09:48] LABS: Alanine Aminotransferase 9 U/L (0-41); Albumin Level 3.8 g/dL (3.5-5.2); Alkaline Phosphatase 82 U/L (40-130); Anion Gap 12.4 (5-19); Aspartate Amino Transferase 9 U/L (0-40); Blood Urea Nitrogen 24 mg/dL (8-23); Calcium 8.5 mg/dL (8.5-10.5); Carbon Dioxide 24 mmol/L (22-29); Chloride 102 mmol/L (98-107); Ferritin 444 ng/mL (30-400); Glomerular Filtration Rate 96.1 mL/min (90-130); Glucose 98 mg/dL (65-115); Iron 52 ug/dL (59-158); Osmolality Calculated 280 mOsm/kg (285-295); Percent Saturation 21.9 % (20-50); Potassium 5.4 mmol/L (3.5-5.1); Sodium 133 mmol/L (136-145); Total Bilirubin 0.2 mg/dL (0.15-1.2); Total Iron Binding Capacity 237 mcg/dl; Total Protein 6.8 g/dL (6.6-8.7); Unsaturated Iron Binding 185 ug/dL (112-347)
== END 2023-08-27 23:59 | disposition home or self-care (01) ==
PROVIDERS: PCP Family Medicine; Visit Provider Internal Medicine Medical Oncology
DX: D64.9 Anemia, unspecified (principal); D50.9 Iron deficiency anemia, unspecified; I77.1 Stricture of artery; F17.210 Nicotine dependence, cigarettes, uncomplicated; Z79.899 Other long term (current) drug therapy
CPT/HCPCS: 36415; 80053; 82728; 83540; 83550; 85025; 99214

== ENCOUNTER 2023-08-31 12:03 | Outpatient (CLI) | payer MEDICARE, MEDICAID, SELFPAY ==
--- NOTE | 2023-08-31 12:11 | CT_ITS ---
WS: [id number] LDCT LUNG CANCER SCREENING TECHNIQUE: Noncontrast CT of the chest with coronal and sagittal reformatted images. CLINICAL INFORMATION: NICOTINE DEPENDENCE,CIGARETTES COMPARISON: 2021 DLP: 51.39 mGy.cm DIvol: Mean CTDIvol: 0.80 (mGy) All CT scans at [facility] use at least one of these dose optimization techniques: automat ed exposure control; mA and/or kV adjustment per patient size (includes targeted exams where dose is matched to clinical indication); or iterative reconstruction. FINDINGS: Moderate chronic emphysematous changes. No acute pulmonary infiltrates. Stable fibrosis in the lung apices. Chronic interstitial fibrosis with bronchiectasis in the RIGHT lower lobe superior segment similar to previous. Normal caliber thoracic aorta. Aortic calcification. Coronary calcification. No mediastina l or hilar lymphadenopathy. Adrenal glands are normal. IMPRESSION: CT/CT lung screening 29921 LUNG-RADS: 1-Negative FOLLOW UP: 12 Month: Continue annual screening with LDCT
== END 2023-08-31 12:04 | disposition home or self-care (01) ==
PROVIDERS: PCP Family Medicine; Visit Provider Family Medicine
DX: Z12.2 Encounter for screening for malignant neoplasm of respiratory organs (principal); F17.210 Nicotine dependence, cigarettes, uncomplicated
CPT/HCPCS: 71271

== ENCOUNTER 2023-09-05 11:31 | Emergency (ER) | payer MEDICARE, MEDICAID, SELFPAY ==
[2023-09-05 11:34] VITALS: BP 160/73; PULSE 90; RESP 16; TEMP 36.6; O2SAT 98; BMI 19.6
--- NOTE | 2023-09-05 11:48 | ED_ITS ---
HPI - General Adult General: Chief complaint: General Medical Stated complaint: groin pain, just had surgery Time Seen by Provider: 09/05/23 11:46 Source: patient Mode of arrival: ambulatory History of Present Illness: 60-year-old male presents emergency room with complaint of left groin discomfort. Patient had an angiogram with runoff 4 days ago. No fever sweats chills he has a little bruising at the site as well. No pain or discomfort in the leg Onset (ago): day(s) Severity: mild Pain Consistency: intermittent Relieving factors: none Exacerbating factors: none Associated symptoms: Deny chest pain, dyspnea or rash Treatments prior to arrival: none Review of Systems Const: Denies: fever(s) or chills Card: Denies: chest pain Resp: Denies: dyspnea GI: Denies: abdominal pain : Denies: dysuria, urinary frequency or urinary urgency Musc: Denies: neck pain or back pain Skin/Breast: Denies: rash PFSH ED PFSH: Medical History Anemia BPH with obstruction/lower urinary tract symptoms COPD (chronic obstructive pulmonary disease) Dyslipidemia Essential hypertension GERD (gastroesophageal reflux disease) History of MRSA infection Nicotine dependence, cigarettes, uncomplicated Peripheral arterial disease Peripheral neuropathy Psychiatric care Schizoaffective disorder, depressive type Type 2 diabetes mellitus Surgical History H/O colonoscopy yrs ago H/O esophagogastroduodenoscopy H/O foot surgery x 2 for diabetic foot ulcer History of coronary artery stent placement History of eye surgery x3 History of surgery on arm Multiple procedures on the right arm related to MRSA infection S/P angioplasty Angioplasty with stent placement to the right leg Status post femoral-popliteal bypass surgery Left femoropopliteal bypass in 2013 with redo bypass in 2014 Family History Family/Other Stroke Cancer Diabetes Hypertension Unknown Cancer Father , at age 59 Alcoholic Mother Lung disease Stroke Denies family history of Anesthesia complication Bleeding disorder Social History Smoking and tobacco status: current every day smoker cigarettes Packs smoked per day: 1 Years cigarettes smoked: 54 Alcohol intake: former Substance/Drug Use: never Household members: other Details: room mate Marital status: Current occupational status: disabled Current gender identity: Male Physical Exam Const: COMMON NORMALS: no acute distress GENERAL APPEARANCE: cooperative and comfortable ORIENTATION/CONSCIOUSNESS: Yes awake, Yes oriented to person, Yes oriented to place and Yes oriented to time HENMT: COMMON NORMALS: normocephalic, atraumatic and hearing grossly normal bilaterally HEAD & SCALP: normocephalic and atraumatic Resp: COMMON NORMALS: normal respiratory effort, No retractions, No use of accessory muscles and clear to auscultation bilaterally AUSCULTATION: clear to auscultation bilaterally Cardio: COMMON NORMALS: regular rate, regular rhythm and No murmurs present (Cardio) RATE: regular rate RHYTHM: regular rhythm : OTHER: Palpation of the right groin no pulsatile masses no nodules prolonged. Some mild ecchymosis. No sign of infection or drainage. Extremity: COMMON NORMALS: normal to inspection, capillary refill normal, no clubbing, cyanosis or edema, no calf tenderness and no pedal edema Neuro: SENSORIUM/ORIENTATION: Yes oriented to person, Yes oriented to place and Yes oriented to time Skin: COMMON NORMALS: no rashes or lesions noted GENERAL SKIN EXAM: no rashes or lesions noted Course Vital Signs: Vital signs: Vital Signs Temperature 97.9 F 09/05/23 11:34 Pulse Rate 90 09/05/23 11:34 Respiratory Rate 16 09/05/23 11:34 Blood Pressure 160/73 09/05/23 11:34 Pulse Oximetry 98 09/05/23 11:34 Oxygen Delivery Me thod Room Air 09/05/23 11:34 MDM - General Adult Medical Decision Making No sign of pseudoaneurysm. No pulsatile masses. Femoral pulses easily palpable in palpating and feels like it is a graft that were palpating. This appropriate amount of ecchymosis from the testing done recently. Patient has mild hyponatremia but is chronic reviewing previous labs Medical Records I reviewed the patient's medical records. Lab Data I reviewed the patient's lab results. 09/05/23 11:52 09/05/23 11:52 Laboratory Results WBC 10.53 10^3/uL (3.29-11.43) 09/05/23 11:52 RBC 3.41 10^6/uL (3.85-5.65) L 09/05/23 11:52 Hgb 10.60 g/dL (11.27-16.99) L 09/05/23 11:52 Hct 32.2 % (37-53) L 09/05/23 11:52 MCV 94.4 fl (82-101) 09/05/23 11:52 MCH 31.1 pg (27-33) 09/05/23 11:52 MCHC 32.9 g/dL (30-55) 09/05/23 11:52 RDW 13.8 % (12.1-15.1) 09/05/23 11:52 Plt Count 285 10^3/cmm (157-399) 09/05/23 11:52 MPV 8.6 fL (7.4-10.4) 09/05/23 11:52 Neut % (Auto) 71.5 % 09/05/23 11:52 Lymph % (Auto) 14.7 % 09/05/23 11:52 Overton % (Auto) 5.3 % 09/05/23 11:52 Eos % (Auto) 7.2 % 09/05/23 11:52 Baso % (Auto) 0.5 % 09/05/23 11:52 Neut # (Auto) 7.53 10^3/uL (1.8-7.7) 09/05/23 11:52 Lymph # (Auto) 1.6 10^3/uL (0.8-4.8) 09/05/23 11:52 Overton # (Auto) 0.6 10^3/uL (0.2-0.9) 09/05/23 11:52 Eos # (Auto) 0.8 10^3/uL (0.0-0.8) 09/05/23 11:52 Baso # (Auto) 0.1 10^3/uL (0.0-0.1) 09/05/23 11:52 Nucleated RBC % (auto) 0 % 09/05/23 11:52 Nucleated RBCs # 0.0 /100WBC 09/05/23 11:52 Sodium 128 mmol/L (136-145) L 09/05/23 11:52 Potassium 4.8 mmol/L (3.5-5.1) 09/05/23 11:52 Chloride 96 mmol/L (98-107) L 09/05/23 11:52 Carbon Dioxide 24 mmol/L (22-29) 09/05/23 11:52 Anion Gap 12.8 (5-19) 09/05/23 11:52 BUN 21 mg/dL (8-23) 09/05/23 11:52 Creatinine 0.8 mg/dL (0.7-1.2) 09/05/23 11:52 GFR Calculation 96.1 mL/min (90-130) 09/05/23 11:52 Glucose 113 mg/dL (65-115) 09/05/23 11:52 Calculated Osmolality 270 mOsm/kg (285-295) L 09/05/23 11:52 Calcium 8.4 mg/dL (8.5-10.5) L 09/05/23 11:52 Total Bilirubin 0.2 mg/dL (0.15-1.2) 09/05/23 11:52 AST 9 U/L (0-40) 09/05/23 11:52 ALT 9 U/L (0-41) 09/05/23 11:52 Alkaline Phosphatase 93 U/L (40-130) 09/05/23 11:52 Total Protein 7.0 g/dL (6.6-8.7) 09/05/23 11:52 Albumin 3.7 g/dL (3.5-5.2) 09/05/23 11:52 Globulin 3.3 g/dL (1.3-4.6) 09/05/23 11:52 No radiology studies performed this visit Discharge Plan Discharge Patient Disposition: Home Clinical Impression: Left groin pain, PAD (peripheral artery disease) Condition: Stable Prescriptions: No Action (DME) Diabetic shoes with 3 sets of insoles See Rx Instructions .Route .MEDSUPPLY Qty: 1 0RF Rx Instructions: As directed by PAIGE&O gabapentin 300 mg capsule 300 mg PO TID tamsulosin 0.4 mg capsule 0.8 mg PO BEDTIME Rx Instructions: TAKES 2 PILLS AT HS ascorbic acid (vitamin C) 500 mg capsule 500 mg PO EVERY OTHER DAY finasteride 5 mg tablet 5 mg PO DAILY ferrous sulfate 325 mg (65 mg iron) tablet 325 mg PO .every other day mirtazapine 30 mg tablet 30 mg PO BEDTIME Qty: 90 2RF Rx Instructions: Take one tablet at bedtime buspirone 30 mg tablet 30 mg PO BID Qty: 180 2RF Rx Instructions: Take one tablet twice per day ondansetron 8 mg tablet,disintegrating 8 mg PO Q8H PRN (Reason: nausea and vomiting) 5 Days Qty: 15 0RF budesonide-formoterol [Symbicort] 80-4.5 mcg/actuation HFA aerosol inhaler See Rx Instructions inhalation BID Rx Instructions: Strength unknown - 2 puffs inhaled twice a day; metformin 1,000 mg tablet 1,000 mg PO BID aripiprazole [Abilify] 10 mg tablet 10 mg PO .morning Qty: 90 2RF Rx Instructions: Take one tablet every morning pantoprazole 20 mg tablet,delayed release (DR/EC) 20 mg PO BID Qty: 180 3RF pravastatin 80 mg tablet 80 mg PO DAILY Qty: 90 3RF aspirin 81 mg tablet,delayed release (DR/EC) 81 mg PO DAILY Qty: 90 3RF furosemide [Lasix] 20 mg tablet 20 mg PO DAILY Qty: 90 3RF docusate sodium 100 mg Tablet 100 mg PO BID PRN (Reason: Constipation) clopidogrel 75 mg Tablet 75 mg PO DAILY Qty: 90 3RF Discharge Orders: Discharge ED (Routine); Ordered 09/05/23 Ordered By: Russ Barnes Referrals: Diego Glass MD [Primary Care Provider] - Discharge Diet: Usual diet Patient Instructions: Opioid Safety, Pain Management Coding Level of Care Code ED 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
[2023-09-05 12:03] LABS: Basophils # 0.1 10^3/uL (0.0-0.1); Basophils % 0.5 %; Eosinophils # 0.8 10^3/uL (0.0-0.8); Eosinophils % 7.2 %; Hematocrit 32.2 % (37-53); Lymphocytes # 1.6 10^3/uL (0.8-4.8); Lymphocytes % 14.7 %; Mean Corpuscular HGB Conc 32.9 g/dL (30-55); Mean Corpuscular Hemoglobin 31.1 pg (27-33); Mean Corpuscular Volume 94.4 fl (82-101); Mean Platelet Volume 8.6 fL (7.4-10.4); Monocytes # 0.6 10^3/uL (0.2-0.9); Monocytes % 5.3 %; Neutrophils # 7.53 10^3/uL (1.8-7.7); Neutrophils % 71.5 %; Nucleated Red Blood Cells % 0 %; Platelet Count 285 10^3/cmm (157-399); Red Blood Count 3.41 10^6/uL (3.85-5.65); Red Cell Distribution Width 13.8 % (12.1-15.1); White Blood Count 10.53 10^3/uL (3.29-11.43)
[2023-09-05 12:30] LABS: Alanine Aminotransferase 9 U/L (0-41); Albumin Level 3.7 g/dL (3.5-5.2); Alkaline Phosphatase 93 U/L (40-130); Anion Gap 12.8 (5-19); Aspartate Amino Transferase 9 U/L (0-40); Blood Urea Nitrogen 21 mg/dL (8-23); Calcium 8.4 mg/dL (8.5-10.5); Carbon Dioxide 24 mmol/L (22-29); Chloride 96 mmol/L (98-107); Globulin 3.3 g/dL (1.3-4.6); Glomerular Filtration Rate 96.1 mL/min (90-130); Glucose 113 mg/dL (65-115); Osmolality Calculated 270 mOsm/kg (285-295); Potassium 4.8 mmol/L (3.5-5.1); Sodium 128 mmol/L (136-145); Total Bilirubin 0.2 mg/dL (0.15-1.2)
== END 2023-09-05 12:21 | disposition home or self-care (01) ==
PROVIDERS: Emergency Provider Family Medicine; PCP Family Medicine
DX: R10.32 Left lower quadrant pain (principal); I73.9 Peripheral vascular disease, unspecified; Z79.84 Long term (current) use of oral hypoglycemic drugs; Z79.82 Long term (current) use of aspirin; Z79.02 Long term (current) use of antithrombotics/antiplatelets; F17.210 Nicotine dependence, cigarettes, uncomplicated; J44.9 Chronic obstructive pulmonary disease, unspecified; E78.5 Hyperlipidemia, unspecified; I10 Essential (primary) hypertension; E11.9 Type 2 diabetes mellitus without complications
CPT/HCPCS: 36415; 80053; 85025; 99283

== ENCOUNTER → 2023-09-06 10:35 | Outpatient (BNVA) | payer MEDICARE, MEDICAID, SELFPAY | PROVIDERS: PCP Family Medicine; Visit Provider Podiatrist Foot & Ankle Surgery | DX: L84 Corns and callosities (principal); I73.9 Peripheral vascular disease, unspecified; E11.42 Type 2 diabetes mellitus with diabetic polyneuropathy; L60.3 Nail dystrophy; M21.41 Flat foot [pes planus] (acquired), right foot; M21.42 Flat foot [pes planus] (acquired), left foot; Z79.84 Long term (current) use of oral hypoglycemic drugs | CPT/HCPCS: 11055; 11721 ==

== ENCOUNTER 2023-09-27 13:00 | Oncology outpatient (recurring) (ONCR) | payer MEDICARE, MEDICAID, SELFPAY ==
[2023-08-30 12:50] VITALS: BP 135/70; PULSE 81; RESP 16; TEMP 36.9; O2SAT 96
[2023-08-30 13:03] LABS: Basophils % 0.4 %; Eosinophils # 0.7 10^3/uL (0.0-0.8); Eosinophils % 6.4 %; Hematocrit 30.5 % (37-53); Lymphocytes # 1.9 10^3/uL (0.8-4.8); Lymphocytes % 18.3 %; Mean Corpuscular HGB Conc 34.1 g/dL (30-55); Mean Corpuscular Hemoglobin 31.5 pg (27-33); Mean Corpuscular Volume 92.4 fl (82-101); Mean Platelet Volume 8.7 fL (7.4-10.4); Monocytes # 0.5 10^3/uL (0.2-0.9); Monocytes % 4.7 %; Neutrophils # 7.13 10^3/uL (1.8-7.7); Neutrophils % 69.8 %; Nucleated Red Blood Cells % 0 %; Platelet Count 270 10^3/cmm (157-399); Red Cell Distribution Width 14.2 % (12.1-15.1); White Blood Count 10.21 10^3/uL (3.29-11.43)
[2023-08-30 13:22] LABS: Alanine Aminotransferase 6 U/L (0-41); Albumin Level 3.7 g/dL (3.5-5.2); Alkaline Phosphatase 84 U/L (40-130); Anion Gap 13.3 (5-19); Aspartate Amino Transferase 9 U/L (0-40); Blood Urea Nitrogen 24 mg/dL (8-23); Calcium 8.7 mg/dL (8.5-10.5); Carbon Dioxide 24 mmol/L (22-29); Chloride 99 mmol/L (98-107); Ferritin 349 ng/mL (30-400); Globulin 3.2 g/dL (1.3-4.6); Glomerular Filtration Rate 83.9 mL/min (90-130); Glucose 97 mg/dL (65-115); Iron 37 ug/dL (59-158); Osmolality Calculated 276 mOsm/kg (285-295); Percent Saturation 14.6 % (20-50); Potassium 5.3 mmol/L (3.5-5.1); Sodium 131 mmol/L (136-145); Total Bilirubin 0.2 mg/dL (0.15-1.2); Total Iron Binding Capacity 252 mcg/dl; Total Protein 6.9 g/dL (6.6-8.7); Unsaturated Iron Binding 215 ug/dL (112-347)
[2023-09-27 12:50] VITALS: BP 129/66; PULSE 92; RESP 16; TEMP 36.8; O2SAT 96
[2023-09-27 12:56] LABS: Basophils # 0.1 10^3/uL (0.0-0.1); Basophils % 0.7 %; Eosinophils # 0.5 10^3/uL (0.0-0.8); Eosinophils % 5.5 %; Hematocrit 31.9 % (37-53); Lymphocytes # 1.5 10^3/uL (0.8-4.8); Lymphocytes % 18.2 %; Mean Corpuscular HGB Conc 33.5 g/dL (30-55); Mean Corpuscular Hemoglobin 31.4 pg (27-33); Mean Corpuscular Volume 93.5 fl (82-101); Mean Platelet Volume 8.7 fL (7.4-10.4); Monocytes # 0.5 10^3/uL (0.2-0.9); Monocytes % 5.8 %; Neutrophils # 5.63 10^3/uL (1.8-7.7); Neutrophils % 69.2 %; Nucleated Red Blood Cells % 0 %; Platelet Count 278 10^3/cmm (157-399); Red Blood Count 3.41 10^6/uL (3.85-5.65); Red Cell Distribution Width 12.8 % (12.1-15.1); White Blood Count 8.14 10^3/uL (3.29-11.43)
[2023-09-27 13:18] LABS: Ferritin 355 ng/mL (30-400); Iron 73 ug/dL (59-158); Percent Saturation 27.8 % (20-50); Total Iron Binding Capacity 262 mcg/dl; Unsaturated Iron Binding 189 ug/dL (112-347)
== END 2023-09-27 23:59 | disposition home or self-care (01) ==
PROVIDERS: Nurse Practitioner Family; PCP Family Medicine; Visit Provider Internal Medicine Medical Oncology
DX: D64.9 Anemia, unspecified (principal)
CPT/HCPCS: 36415; 80053; 82728; 83540; 83550; 85025

== ENCOUNTER 2023-11-19 10:29 | Emergency (ER) | payer MEDICARE, MEDICAID, SELFPAY ==
[2023-11-19 10:39] VITALS: BP 132/87; PULSE 102; RESP 21; TEMP 36.6; O2SAT 97
--- NOTE | 2023-11-19 10:54 | ED_ITS ---
HPI - Recheck/Abnormal Lab/Rx General: Chief Complaint: Recheck/Abnormal Lab/Rx Stated Complaint: weakness Time Seen by Provider: 11/19/23 10:52 History of Present Illness: Patient presents to the ER with complaints of needing iron infusion. Patient was post have an iron infusion yesterday due to low iron but overslept and missed the appointment. Patient states appointment is November 23. Patient's been having tired and fatigue and was curious if he could come to the ER and get his iron infusion that he missed yesterday. Otherwise patient has no complaints at this time. Review of Systems General: Reports: 10 or more systems reviewed and unremarkable except in HPI and below PFSH ED PFSH: Medical History History of MRSA infection GERD (gastroesophageal reflux disease) Peripheral neuropathy Type 2 diabetes mellitus Psychiatric care Anemia Peripheral arterial disease COPD (chronic obstructive pulmonary disease) Dyslipidemia Essential hypertension Nicotine dependence, cigarettes, uncomplicated Schizoaffective disorder, depressive type BPH with obstruction/lower urinary tract symptoms Surgical History History of coronary artery stent placement History of eye surgery x3 History of surgery on arm Multiple procedures on the right arm related to MRSA infection H/O foot surgery x 2 for diabetic foot ulcer H/O colonoscopy yrs ago H/O esophagogastroduodenoscopy Status post femoral-popliteal bypass surgery Left femoropopliteal bypass in 2012 with redo bypass in 2013 S/P angioplasty Angioplasty with stent placement to the right leg Family History Family/Other Stroke Cancer Diabetes Hypertension Unknown Cancer Father , at age 59 Alcoholic Mother Lung disease Stroke Denies family history of Anesthesia complication Bleeding disorder Social History Smoking and tobacco/nicotine status: current every day tobacco/nicotine user cigarettes Packs smoked per day: 1 Years cigarettes smoked: 54 Alcohol intake: former Substance/Drug Use: never Household members: other Details: room mate Marital status: Current occupational status: disabled Current gender identity: Male Physical Exam Const: COMMON NORMALS: no acute distress, average body habitus, patient oriented x3, no limitations, healthy appearing, alert and well nourished Neck/C-Spine: COMMON NORMALS: no JVD Chest: COMMONS NORMALS: normal inspection of the chest and normal palpation of entire chest wall Resp: COMMON NORMALS: normal respiratory effort, No retractions, No use of accessory muscles and clear to auscultation bilaterally AUSCULTATION: clear to auscultation bilaterally Cardio: COMMON NORMALS: no JVD, regular rate, regular rhythm, S1 normal heart sound present, S2 normal heart sound present, No gallops present (Cardio), No clicks present (Cardio), No murmurs present (Cardio) and No rub (Cardio) RATE: regular rate RHYTHM: regular rhythm HEART SOUNDS: S1 normal heart sound present and S2 normal heart sound present GI: COMMON NORMALS: Normal to inspection, nondistended, normoactive bowel sounds present, Soft to palpation, non-tender, No hepatosplenomegaly present and no masses PALPATION: Yes Soft to palpation and Yes No hepatosplenomegaly present Neuro: COMMON NORMALS: patient oriented x3 SENSORIUM/ORIENTATION: Yes alert Course Vital Signs: Vital signs: Vital Signs Temperature 97.8 F 11/19/23 10:39 Pulse Rate 93 11/19/23 10:58 Respiratory Rate 24 H 11/19/23 10:58 Blood Pressure 132/87 11/19/23 10:58 Pulse Oximetry 96 11/19/23 10:58 Oxygen Delivery Me thod Room Air 11/19/23 10:58 MDM - Recheck/Abnormal Lab/Rx Medical Decision Making We are unable to do the patient's iron infusion at this time. It is acceptable that patient wait until Tuesday at his normal scheduled appointment. This was detailed to the patient who is acceptable. Patient be discharged Differential Diagnosis Unlikely encounter for medication refill, encounter for wound recheck, encounter for recheck of burn, encounter for removal of sutures or warfarin-induced coagulopathy Medical Records I reviewed the patient's medical records. Lab Data I reviewed the patient's lab results. No radiology studies performed this visit Discharge Plan Discharge Patient Disposition: Home Clinical Impression: Iron deficiency Condition: Stable Prescriptions: No Action gabapentin 300 mg capsule 300 mg PO TID tamsulosin 0.4 mg capsule 0.8 mg PO BEDTIME Rx Instructions: TAKES 2 PILLS AT HS ascorbic acid (vitamin C) 500 mg capsule 500 mg PO EVERY OTHER DAY finasteride 5 mg tablet 5 mg PO DAILY ferrous sulfate 325 mg (65 mg iron) tablet 325 mg PO .every other day mirtazapine 30 mg tablet 30 mg PO BEDTIME Qty: 90 2RF Rx Instructions: Take one tablet at bedtime buspirone 30 mg tablet 30 mg PO BID Qty: 180 2RF Rx Instructions: Take one tablet twice per day ondansetron 8 mg tablet,disintegrating 8 mg PO Q8H PRN (Reason: nausea and vomiting) 5 Days Qty: 15 0RF budesonide-formoterol [Symbicort] 80-4.5 mcg/actuation HFA aerosol inhaler See Rx Instructions inhalation BID Rx Instructions: Strength unknown - 2 puffs inhaled twice a day; metformin 1,000 mg tablet 1,000 mg PO BID aripiprazole [Abilify] 10 mg tablet 10 mg PO .morning Qty: 90 2RF Rx Instructions: Take one tablet every morning pantoprazole 20 mg tablet,delayed release (DR/EC) 20 mg PO BID Qty: 180 3RF pravastatin 80 mg tablet 80 mg PO DAILY Qty: 90 3RF aspirin 81 mg tablet,delayed release (DR/EC) 81 mg PO DAILY Qty: 90 3RF furosemide [Lasix] 20 mg tablet 20 mg PO DAILY Qty: 90 3RF (DME) Diabetic shoes with 3 sets of insoles See Rx Instructions .Route .MEDSUPPLY Qty: 1 0RF Rx Instructions: As directed by Dot Kuhn nitroglycerin 0.4 mg tablet, sublingual 0.4 mg sublingual Q5M PRN (Reason: chest pain) Qty: 25 2RF Rx Instructions: do not exceed 3 doses per episode docusate sodium 100 mg Tablet 100 mg PO BID PRN (Reason: Constipation) clopidogrel 75 mg Tablet 75 mg PO DAILY Qty: 90 3RF Discharge Orders: Discharge ED (Routine); Ordered 11/19/23 Ordered By: Tej Cline Referrals: Diego Glass MD [Primary Care Provider] - 1 week Patient Instructions: Iron Rich Diet (ED) Coding Level of Care Code ED 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
[2023-11-19 10:58] VITALS: BP 132/87; PULSE 93; RESP 24; O2SAT 96
[2023-11-19 11:20] VITALS: BP 132/87; PULSE 93; RESP 24; O2SAT 96
== END 2023-11-19 11:20 | disposition home or self-care (01) ==
PROVIDERS: Emergency Provider Emergency Medicine; PCP Family Medicine
DX: E61.1 Iron deficiency (principal); Z79.02 Long term (current) use of antithrombotics/antiplatelets; Z79.82 Long term (current) use of aspirin; Z79.84 Long term (current) use of oral hypoglycemic drugs; F17.210 Nicotine dependence, cigarettes, uncomplicated; E11.42 Type 2 diabetes mellitus with diabetic polyneuropathy; J44.9 Chronic obstructive pulmonary disease, unspecified; E78.5 Hyperlipidemia, unspecified; I10 Essential (primary) hypertension
CPT/HCPCS: 99281

== ENCOUNTER 2023-11-25 08:30 | Oncology outpatient (recurring) (ONCR) | payer MEDICARE, MEDICAID, SELFPAY ==
[2023-11-16 13:31] VITALS: BP 153/78; PULSE 92; RESP 16; TEMP 36.7; O2SAT 94
[2023-11-16 13:43] LABS: Basophils % 0.2 %; Eosinophils # 0.3 10^3/uL (0.0-0.8); Eosinophils % 3.6 %; Hematocrit 31.8 % (37-53); Lymphocytes # 1.4 10^3/uL (0.8-4.8); Lymphocytes % 16.5 %; Mean Corpuscular HGB Conc 33.6 g/dL (30-55); Mean Corpuscular Hemoglobin 30.3 pg (27-33); Mean Corpuscular Volume 90.1 fl (82-101); Mean Platelet Volume 8.9 fL (7.4-10.4); Monocytes # 0.5 10^3/uL (0.2-0.9); Monocytes % 5.9 %; Neutrophils % 73.3 %; Nucleated Red Blood Cells % 0 %; Platelet Count 250 10^3/cmm (157-399); Red Blood Count 3.53 10^6/uL (3.85-5.65); Red Cell Distribution Width 12.5 % (12.1-15.1)
[2023-11-16 13:59] LABS: Estmated Average Glucose 128; Hemoglobin A1C 6.1 % (4.0-6.0)
[2023-11-16 14:03] LABS: Alanine Aminotransferase 9 U/L (0-41); Albumin Level 3.8 g/dL (3.5-5.2); Alkaline Phosphatase 93 U/L (40-130); Anion Gap 13.9 (5-19); Aspartate Amino Transferase 11 U/L (0-40); Blood Urea Nitrogen 20 mg/dL (8-23); Calcium 8.9 mg/dL (8.5-10.5); Carbon Dioxide 24 mmol/L (22-29); Chloride 97 mmol/L (98-107); Chol HDL Ratio 2.96 mg/dL (1.0-5.00); Cholesterol 133 mg/dL (0-200); Ferritin 351 ng/mL (30-400); Globulin 3.6 g/dL (1.3-4.6); Glomerular Filtration Rate 83.9 mL/min (90-130); Glucose 105 mg/dL (65-115); HDL Cholesterol 45 mg/dL (60-100); Iron 21 ug/dL (59-158); LDL Cholesterol Calculated 70 mg/dL (50-129); LDL HDL Ratio 1.56 RATIO (0.00-3.22); Osmolality Calculated 273 mOsm/kg (285-295); Percent Saturation 8.9 % (20-50); Potassium 4.9 mmol/L (3.5-5.1); Sodium 130 mmol/L (136-145); Total Bilirubin 0.2 mg/dL (0.15-1.2); Total Iron Binding Capacity 234 mcg/dl; Total Protein 7.4 g/dL (6.6-8.7); Triglycerides 92 mg/dL (0-150); Unsaturated Iron Binding 213 ug/dL (112-347)
[2023-11-23 09:27] VITALS: BP 146/77; PULSE 89; RESP 18; TEMP 37; O2SAT 97
[2023-11-23] MEDS: iron sucrose 200 MG in sodium chloride 0.9% (100 ml) 100 ML 220 MG IV (09:40)
[2023-11-23 10:22] VITALS: BP 148/76; PULSE 91; RESP 18; TEMP 36.6; O2SAT 97
[2023-11-25] MEDS: iron sucrose 200 MG in sodium chloride 0.9% (100 ml) 100 ML 220 MG IV (08:49)
[2023-11-25 09:25] VITALS: BP 149/76; PULSE 82; RESP 16; TEMP 36.5; O2SAT 98
== END 2023-11-27 23:59 | disposition home or self-care (01) ==
PROVIDERS: Nurse Practitioner Psychiatric/Mental Health; PCP Family Medicine; Visit Provider Internal Medicine Medical Oncology
DX: D64.9 Anemia, unspecified (principal); Z53.9 Procedure and treatment not carried out, unspecified reason
CPT/HCPCS: 36415; 80053; 80061; 82274; 82728; 83036; 83540; 83550; 85025; 96365; 99214; J1756

== ENCOUNTER 2023-12-07 14:00 | Oncology outpatient (recurring) (ONCR) | payer MEDICARE, MEDICAID, SELFPAY ==
[2023-11-24 14:57] VITALS: BP 153/78; BMI 26.9
[2023-11-29] MEDS: iron sucrose 200 MG in sodium chloride 0.9% (100 ml) 100 ML 220 MG IV (14:45)
[2023-11-29 15:04] VITALS: BP 133/69; PULSE 87; RESP 18; TEMP 37.1; O2SAT 97
[2023-12-05 13:53] VITALS: BP 133/80; PULSE 85; RESP 16; TEMP 36.6; O2SAT 97
[2023-12-05] MEDS: sodium chloride 0.9% 250 ML 75 ML IV (14:11)
[2023-12-05] MEDS: iron sucrose 200 MG in sodium chloride 0.9% (100 ml) 100 ML 220 MG IV (14:11)
[2023-12-05 14:57] VITALS: BP 165/67; PULSE 82; RESP 16; TEMP 36.8; O2SAT 98
[2023-12-07 13:33] VITALS: BP 147/78; PULSE 93; RESP 18; TEMP 36.6; O2SAT 98
[2023-12-07] MEDS: iron sucrose 200 MG in sodium chloride 0.9% (100 ml) 100 ML 220 MG IV (13:44)
[2023-12-07 14:22] VITALS: BP 151/75; PULSE 84; RESP 18; TEMP 36.6; O2SAT 98
== END 2023-12-28 23:59 | disposition home or self-care (01) ==
PROVIDERS: PCP Family Medicine; Visit Provider Internal Medicine Medical Oncology
DX: D64.9 Anemia, unspecified; E11.42 Type 2 diabetes mellitus with diabetic polyneuropathy; L84 Corns and callosities; L60.3 Nail dystrophy; E11.51 Type 2 diabetes mellitus with diabetic peripheral angiopathy without gangrene; Z53.9 Procedure and treatment not carried out, unspecified reason; I73.9 Peripheral vascular disease, unspecified; Z79.84 Long term (current) use of oral hypoglycemic drugs
CPT/HCPCS: 11055; 11721; 96365; J1756; J7050

== ENCOUNTER → 2023-12-12 12:26 | Outpatient (BNVA) | payer MEDICARE, MEDICAID, SELFPAY ==
[2023-11-24 14:57] VITALS: BP 153/78; BMI 26.9
== END ==
PROVIDERS: PCP Family Medicine; Visit Provider Nurse Practitioner Family
DX: I73.9 Peripheral vascular disease, unspecified (principal); I25.10 Atherosclerotic heart disease of native coronary artery without angina pectoris; F17.210 Nicotine dependence, cigarettes, uncomplicated; I10 Essential (primary) hypertension
CPT/HCPCS: 99214

== ENCOUNTER 2023-12-24 21:19 | Emergency (ER) | payer MEDICARE, MEDICAID, SELFPAY ==
[2023-11-24 14:57] VITALS: BP 153/78; BMI 26.9
[2023-12-24 21:44] VITALS: BP 147/56; PULSE 86; RESP 20; TEMP 36.6; O2SAT 97; BMI 18.6
[2023-12-25] VITALS: BP 117/57; PULSE 78; O2SAT 96
--- NOTE | 2023-12-25 00:01 | USR_ITS ---
PROCEDURE INFORMATION: Exam: US Duplex Right Lower Extremity Veins, Limited Exam date and time: 12/25/2023 12:40 AM Age: 68 years old Clinical indication: Edema, localized; Lower extremity, right; Prior surgery; Surgery date: 3-7 days post-operative; Surgery type: RT lower extremity bypass graft; Additional info: Le edema following SX TECHNIQUE: Imaging protocol: Real-time duplex ultrasound of the right extremity with 2-D dyer scale, color Doppler flow and spectral waveform analysis including responses to compression and other maneuvers (when performed) with image documentation. Limited exam was focused on the right lower extremity veins. COMPARISON: CT chest abdpel [id number]/*[id number] 08/20/2019 1:49 PM FINDINGS: Right deep veins: Unremarkable. The common femoral, femoral, proximal profunda femoral and popliteal veins are patent without thrombus. Normal Doppler waveforms. Normal compressibility and/or augmentation response. Superficial veins: Unremarkable. Saphenofemoral junction is patent without thrombus. Soft tissues: Complex avascular fluid collection in the right groin measuring 1.9 x 1.6 x 4 cm may represent a hematoma. US/[place] [id number] IMPRESSION: 1. No acute deep vein thrombosis. 2.Complex avascular fluid collection in the right groin measuring 1.9 x 1.6 x 4 cm may represent a hematoma.
[2023-12-25 00:25] LABS: INR 0.94 (0.8-1.2)
[2023-12-25 00:26] LABS: Partial Thromboplastin Time 40.2 SECONDS (23.9-36.7)
[2023-12-25 00:29] LABS: Basophils % 0.4 %; Eosinophils # 0.7 10^3/uL (0.0-0.8); Eosinophils % 7.6 %; Hematocrit 27.9 % (37-53); Lymphocytes # 1.4 10^3/uL (0.8-4.8); Lymphocytes % 15.9 %; Mean Corpuscular Hemoglobin 30.8 pg (27-33); Mean Corpuscular Volume 93.3 fl (82-101); Mean Platelet Volume 9.2 fL (7.4-10.4); Monocytes # 0.6 10^3/uL (0.2-0.9); Monocytes % 6.9 %; Neutrophils # 5.82 10^3/uL (1.8-7.7); Neutrophils % 67.9 %; Nucleated Red Blood Cells % 0 %; Platelet Count 231 10^3/cmm (157-399); Red Blood Count 2.99 10^6/uL (3.85-5.65); Red Cell Distribution Width 14.3 % (12.1-15.1); White Blood Count 8.56 10^3/uL (3.29-11.43)
[2023-12-25 00:33] LABS: Lactic Sepsis W/Reflex 1.8 mmol/L (0.5-2.2)
[2023-12-25 00:34] LABS: Alanine Aminotransferase 13 U/L (0-41); Albumin Level 3.2 g/dL (3.5-5.2); Alkaline Phosphatase 90 U/L (40-130); Anion Gap 15.1 (5-19); Aspartate Amino Transferase 16 U/L (0-40); Blood Urea Nitrogen 31 mg/dL (8-23); C Reactive Protein 19.1 mg/L (0.0-4.9); Calcium 8.7 mg/dL (8.5-10.5); Carbon Dioxide 21 mmol/L (22-29); Chloride 100 mmol/L (98-107); Globulin 3.2 g/dL (1.3-4.6); Glomerular Filtration Rate 66.6 mL/min (90-130); Glucose 81 mg/dL (65-115); Osmolality Calculated 278 mOsm/kg (285-295); Potassium 5.1 mmol/L (3.5-5.1); Sodium 131 mmol/L (136-145); Total Bilirubin 0.2 mg/dL (0.15-1.2); Total Protein 6.4 g/dL (6.6-8.7)
[2023-12-25] MEDS: FUROsemide 40 mg Tablet 80 MG PO (01:56)
[2023-12-25 02:11] VITALS: BP 126/62; PULSE 78; RESP 16; O2SAT 98
--- NOTE | 2023-12-25 15:54 | W.ED.EXTPRO ---
HPI - Extremity Problem General: Chief complaint: Extremity Problem,Nontraumatic Stated complaint: right ankle swelling,redness post by pass Time Seen by Provider: 12/24/23 22:51 History of Present Illness: 68 year old male gentleman who had right sided femoral popliteal bypass surgery in [place] this week. He had increased swelling of his right lower extremity, particularly the ankle and foot this evening. He has been wrapping the leg with peter wrap for swelling, sparing the ankle and foot as directed by his surgeon. He has had an increase in pain to his ankle and foot given his swelling. No fever. No drainage from his incisions. He has not been elevating his leg as instructed. Associated symptoms: Deny chest pain or fever(s) Review of Systems Const: Denies: fever(s) or chills Card: Denies: chest pain Resp: Denies: dyspnea GI: Denies: abdominal pain or vomiting [facility] ED PFSH: Medical History History of MRSA infection GERD (gastroesophageal reflux disease) Peripheral neuropathy Type 2 diabetes mellitus Psychiatric care Anemia Peripheral arterial disease COPD (chronic obstructive pulmonary disease) Dyslipidemia Essential hypertension Nicotine dependence, cigarettes, uncomplicated Schizoaffective disorder, depressive type BPH with obstruction/lower urinary tract symptoms Surgical History History of coronary artery stent placement History of eye surgery x3 History of surgery on arm Multiple procedures on the right arm related to MRSA infection H/O foot surgery x 2 for diabetic foot ulcer H/O colonoscopy yrs ago H/O esophagogastroduodenoscopy Status post femoral-popliteal bypass surgery Left femoropopliteal bypass in 2013 with redo bypass in 2014 S/P angioplasty Angioplasty with stent placement to the right leg Family History Family/Other Stroke Cancer Diabetes Hypertension Unknown Cancer Father , at age 59 Alcoholic Mother Lung disease Stroke Denies family history of Anesthesia complication Bleeding disorder Social History Smoking and tobacco/nicotine status: current every day tobacco/nicotine user cigarettes Packs smoked per day: 1 Years cigarettes smoked: 54 Alcohol intake: former Substance/Drug Use: never Household members: other Details: room mate Marital status: Current occupational status: disabled Current gender identity: Male Physical Exam Const: COMMON NORMALS: no acute distress GENERAL APPEARANCE: cooperative and frail appearing; not ill appearing HENMT: FACE & SINUS: normal facial exam Eye: COMMON NORMALS: Equal, round and reactive pupils present and EOMs intact bilaterally PUPIL: Yes Equal, round and reactive pupils present Chest: CHEST: Yes Symmetrical chest wall rise Resp: COMMON NORMALS: normal respiratory effort EFFORT & INSPECTION: Yes symmetric chest movement Cardio: COMMON NORMALS: regular rate and regular rhythm RATE: regular rate RHYTHM: regular rhythm Extremity: NARRATIVE EXTREMITY EXAM: Examination of the right lower extremity reveals an incision in the groin, near the knee, the leg, and the ankle. These are all clean. No increased Cellulitis or drainage. There is significant edema to the ankle and foot. The leg is spared of the edema. There is an peter wrap from the distal tibia, to the distal thigh. It is removed. Capillary refill to the toes is normal. There are changes of chronic stasis and vascular insufficiency to the foot. Neuro: DANIEL COMA SCALE: document GCS findings Daniel coma scale eye opening: Spontaneous Uneeda coma scale verbal response: Orientated Uneeda coma scale motor response: Obey commands Daniel coma scale total score: 15 Skin: NARRATIVE SKIN EXAM: see above Course Vital Signs: Vital signs: Vital Signs Temperature 97.8 F 12/24/23 21:44 Pulse Rate 78 12/25/23 02:11 Respiratory Rate 16 12/25/23 02:11 Blood Pressure 126/62 12/25/23 02:11 Pulse Oximetry 98 12/25/23 02:11 Oxygen Delivery Me thod Room Air 12/25/23 00:00 MDM - Extremity (Nontraumatic) Medical Decision Making There is edema to the ankle and foot. In using the peter wrap above the ankle, there has been venous congestion of the foot and ankle. He is encouraged to wrap from the toes up with the peter wrap. Ultrasound for DVT is negative. Laboratory is not remarkable. There may be a small hematoma in the groin, which would not be abnormal following surgery. He will elevate the foot, wrap appropriately as above, and call his surgeon on Tuesday. To return for worsening or worrisome symptoms in the meantime. Lab Data 12/25/23 00:00 12/25/23 00:00 Radiology Impressions Venous Duplex 12/25/23 00:01 IMPRESSION: 1. No acute deep vein thrombosis. 2.Complex avascular fluid collection in the right groin measuring 1.9 x 1.6 x 4 cm may represent a hematoma. Laboratory Results WBC 8.56 10^3/uL (3.29-11.43) 12/25/23 00:00 RBC 2.99 10^6/uL (3.85-5.65) L 12/25/23 00:00 Hgb 9.20 g/dL (11.27-16.99) L 12/25/23 00:00 Hct 27.9 % (37-53) L 12/25/23 00:00 MCV 93.3 fl (82-101) 12/25/23 00:00 MCH 30.8 pg (27-33) 12/25/23 00:00 MCHC 33.0 g/dL (30-55) 12/25/23 00:00 RDW 14.3 % (12.1-15.1) 12/25/23 00:00 Plt Count 231 10^3/cmm (157-399) 12/25/23 00:00 MPV 9.2 fL (7.4-10.4) 12/25/23 00:00 Neut % (Auto) 67.9 % 12/25/23 00:00 Lymph % (Auto) 15.9 % 12/25/23 00:00 Starr % (Auto) 6.9 % 12/25/23 00:00 Eos % (Auto) 7.6 % 12/25/23 00:00 Baso % (Auto) 0.4 % 12/25/23 00:00 Neut # (Auto) 5.82 10^3/uL (1.8-7.7) 12/25/23 00:00 Lymph # (Auto) 1.4 10^3/uL (0.8-4.8) 12/25/23 00:00 Starr # (Auto) 0.6 10^3/uL (0.2-0.9) 12/25/23 00:00 Eos # (Auto) 0.7 10^3/uL (0.0-0.8) 12/25/23 00:00 Baso # (Auto) 0.0 10^3/uL (0.0-0.1) 12/25/23 00:00 Nucleated RBC % (auto) 0 % 12/25/23 00:00 Nucleated RBCs # 0.0 /100WBC 12/25/23 00:00 PT 12.80 SECONDS (12.1-14.9) 12/25/23 00:00 INR 0.94 (0.8-1.2) 12/25/23 00:00 APTT 40.2 SECONDS (23.9-36.7) H 12/25/23 00:00 Sodium 131 mmol/L (136-145) L 12/25/23 00:00 Potassium 5.1 mmol/L (3.5-5.1) 12/25/23 00:00 Chloride 100 mmol/L (98-107) 12/25/23 00:00 Carbon Dioxide 21 mmol/L (22-29) L 12/25/23 00:00 Anion Gap 15.1 (5-19) 12/25/23 00:00 BUN 31 mg/dL (8-23) H 12/25/23 00:00 Creatinine 1.1 mg/dL (0.7-1.2) 12/25/23 00:00 GFR Calculation 66.6 mL/min (90-130) L 12/25/23 00:00 Glucose 81 mg/dL (65-115) 12/25/23 00:00 Calculated Osmolality 278 mOsm/kg (285-295) L 12/25/23 00:00 Lactic Acid 1.8 mmol/L (0.5-2.2) 12/25/23 00:00 Calcium 8.7 mg/dL (8.5-10.5) 12/25/23 00:00 Total Bilirubin 0.2 mg/dL (0.15-1.2) 12/25/23 00:00 AST 16 U/L (0-40) 12/25/23 00:00 ALT 13 U/L (0-41) 12/25/23 00:00 Alkaline Phosphatase 90 U/L (40-130) 12/25/23 00:00 C-Reactive Protein 19.1 mg/L (0.0-4.9) H 12/25/23 00:00 Total Protein 6.4 g/dL (6.6-8.7) L 12/25/23 00:00 Albumin 3.2 g/dL (3.5-5.2) L 12/25/23 00:00 Globulin 3.2 g/dL (1.3-4.6) 12/25/23 00:00 All radiology interpretation(s) finalized by discharge Discharge Plan Discharge Patient Disposition: Home Clinical Impression: Edema of right lower extremity, Venous stasis Condition: Stable Prescriptions: New doxycycline hyclate 100 mg tablet 100 mg PO BID 7 Days Qty: 14 0RF No Action gabapentin 300 mg capsule 300 mg PO TID tamsulosin 0.4 mg capsule 0.8 mg PO BEDTIME Rx Instructions: TAKES 2 PILLS AT HS ascorbic acid (vitamin C) 500 mg capsule 500 mg PO EVERY OTHER DAY finasteride 5 mg tablet 5 mg PO DAILY ferrous sulfate 325 mg (65 mg iron) tablet 325 mg PO .every other day mirtazapine 30 mg tablet 30 mg PO BEDTIME Qty: 90 2RF Rx Instructions: Take one tablet at bedtime buspirone 30 mg tablet 30 mg PO BID Qty: 180 2RF Rx Instructions: Take one tablet twice per day ondansetron 8 mg tablet,disintegrating 8 mg PO Q8H PRN (Reason: nausea and vomiting) 5 Days Qty: 15 0RF budesonide-formoterol [Symbicort] 80-4.5 mcg/actuation HFA aerosol inhaler See Rx Instructions inhalation BID Rx Instructions: Strength unknown - 2 puffs inhaled twice a day; metformin 1,000 mg tablet 1,000 mg PO BID aripiprazole [Abilify] 10 mg tablet 10 mg PO .morning Qty: 90 2RF Rx Instructions: Take one tablet every morning pantoprazole 20 mg tablet,delayed release (DR/EC) 20 mg PO BID Qty: 180 3RF pravastatin 80 mg tablet 80 mg PO DAILY Qty: 90 3RF aspirin 81 mg tablet,delayed release (DR/EC) 81 mg PO DAILY Qty: 90 3RF furosemide [Lasix] 20 mg tablet 20 mg PO DAILY Qty: 90 3RF (DME) Diabetic shoes with 3 sets of insoles See Rx Instructions .Route .MEDSUPPLY Qty: 1 0RF Rx Instructions: As directed by Dot Kuhn nitroglycerin 0.4 mg tablet, sublingual 0.4 mg sublingual Q5M PRN (Reason: chest pain) Qty: 25 2RF Rx Instructions: do not exceed 3 doses per episode docusate sodium 100 mg Tablet 100 mg PO BID PRN (Reason: Constipation) clopidogrel 75 mg Tablet 75 mg PO DAILY Qty: 90 3RF Discharge Orders: Discharge ED (Routine); Ordered 12/25/23 Ordered By: Alex Stapleton Referrals: Diego Glass MD [Primary Care Provider] - 1-3 days Patient Instructions: Leg Edema (ED), Opioid Safety, Pain Management, Venous Insufficiency Activity Restrictions/Additional Instructions: When you wrap the leg for swelling, include the foot, and wrap from the foot up the leg. Leg should be elevated at all times when sitting. Antibiotics as directed. Return for worsening symptoms despite treatment. 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
== END 2023-12-25 02:09 | disposition home or self-care (01) ==
PROVIDERS: Emergency Provider Emergency Medicine; PCP Family Medicine
DX: R60.0 Localized edema (principal); I87.8 Other specified disorders of veins; Z79.02 Long term (current) use of antithrombotics/antiplatelets; Z79.82 Long term (current) use of aspirin; Z79.84 Long term (current) use of oral hypoglycemic drugs; F17.210 Nicotine dependence, cigarettes, uncomplicated; E11.42 Type 2 diabetes mellitus with diabetic polyneuropathy; J44.9 Chronic obstructive pulmonary disease, unspecified; E78.5 Hyperlipidemia, unspecified; I10 Essential (primary) hypertension
CPT/HCPCS: 36415; 80053; 83605; 85025; 85610; 85730; 86140; 93971; 99284

== ENCOUNTER → 2023-12-26 13:03 | Outpatient (BNVA) | payer MEDICARE, MEDICAID, SELFPAY ==
[2023-11-24 14:57] VITALS: BP 153/78; BMI 26.9
== END ==
PROVIDERS: PCP Family Medicine; Referring Provider Internal Medicine Medical Oncology; Visit Provider Surgery
DX: D64.9 Anemia, unspecified (principal)
CPT/HCPCS: 99204

== ENCOUNTER 2024-01-26 07:13 | Day surgery (SDC) | payer MEDICARE, MEDICAID, SELFPAY ==
[2023-11-24 14:57] VITALS: BP 153/78; BMI 26.9
[2024-01-26 07:34] VITALS: BP 136/97; PULSE 110; RESP 18; TEMP 36.6; O2SAT 100
[2024-01-26 07:38] VITALS: BMI 17.2
--- NOTE | 2024-01-26 07:38 | P.HPUD_ITS ---
Surgery/Procedure H&P Update DATE OF PROCEDURE: January 26, 2024 DATE H&P PERFORMED: 12/26/23 H&P UPDATE INFORMATION: I have reviewed H&P completed within last 30 days, I have examined patient prior to procedure, No changes to prior documentation and H&P is in [facility] EMR on date indicated PLANNED PROCEDURE: Operation Date: 01/26/24 08:35 Proposed Procedures p [id number] egd [id number] colon G0105 screen colon H risk D50.9,Z12.11(Not Applicable) - Andrade Phillips MD s Colonoscopy(Not Applicable) - Andrade Phillips MD
--- NOTE | 2024-01-26 07:53 | ANES.PREANE2 ---
Pre-Anesthetic Assessment Height/Weight: Height 1.78 m Weight 54.431 kg Temp Pulse Resp BP Pulse Ox O2 Del Method 98 F 110 H 18 136/97 100 Room Air 01/26/24 07:34 01/26/24 07:34 01/26/24 07:34 01/26/24 07:34 01/26/24 07:34 01/26/24 07:34 Preop Diagnosis: Anemia Operation Date: 01/26/24 08:35 Proposed Procedures p [id number] egd [id number] colon G0105 screen colon H risk D50.9,Z12.11(Not Applicable) - Andrade Phillips MD s Colonoscopy(Not Applicable) - Andrade Phillips MD Familial anesthetic complications: None Was Beta Robert taken within 24 hours: N/A Was Clonidine taken within 24 hours: N/A Last intake: Intake Last Liquid Date 01/25/24 Last Liquid Time 20:00 Last Solid Date 01/24/24 Last Solid Time 19:00 Social Tobacco and No alcohol 1 pack(s) per day 54 pack years Exam alert, oriented x 3, clear to auscultation bilaterally and regular rate & rhythm Airway Submandibular: within normal limits Cervical ROM: within normal limits Mallampati: Class II Dentition: false History/ROS No significant history except as noted and No significant complaints Pulmonary Chronic Obstructive Pulmonary Disease, Cough and Exertional Dyspnea CV/HEM Anemia, Arrythmia, Coronary Artery Disease, Hypertension, Myocardial Infarction (1 year ago, 1 stent placed) and Peripheral Vascular Disease (Fem-pop bypass) CONCLUSIONS LV systolic function is mildly reduced with EF of 45-50%. Above mentioned regional wall motion abnormalities Grade 1 disatolic dysfunction Trace mitral regurgitation Trace tricuspid regurgitation Compared to prior echocardiogram from 07/22/2021, no significant changes are noted Polyuria BPH Hepatic None reported GI Gastroesophageal Reflux Disease Metabolic Diabetes Mellitus and Hyperlipidemia Neuropsych Anxiety, Depression and Neuropathy Schizoaffective disorder Anesthetic Plan ASA status: 3 Anesthesia: Anesthesia Evaluation, General and MAC Risk of > 500 ml blood loss (7ml/kg in children): No Medications/Allergies Home Medications Medication Instructions Recorded Confirmed Last Taken Type ascorbic acid (vitamin C) 500 mg 500 mg PO DAILY 12/11/19 01/24/24 01/25/24 History capsule finasteride 5 mg tablet 5 mg PO DAILY 12/11/19 01/24/24 01/25/24 History gabapentin 300 mg capsule 300 mg PO TID 12/11/19 01/24/24 01/25/24 History tamsulosin 0.4 mg capsule 0.8 mg PO BEDTIME 12/11/19 01/24/24 01/25/24 History docusate sodium 100 mg tablet 100 mg PO BID PRN Constipation 06/29/21 01/24/24 06/16/23 17:00 History ferrous sulfate 325 mg (65 mg 325 mg PO DAILY 07/01/22 01/24/24 01/25/24 History iron) tablet clopidogrel 75 mg tablet 75 mg PO DAILY #90 tabs 11/16/22 01/24/24 01/21/24 Rx pantoprazole 20 mg tablet,delayed 20 mg PO BID #180 tabs 11/26/22 01/24/24 01/25/24 Rx release pravastatin 80 mg tablet 80 mg PO DAILY #90 tabs 01/13/23 01/24/24 01/25/24 Rx aspirin 81 mg tablet,delayed 81 mg PO DAILY #90 tabs 03/08/23 01/24/24 06/17/23 05:30 Rx release aripiprazole 10 mg tablet (Abilify) 10 mg PO .morning #90 tabs 06/13/23 01/24/24 01/25/24 Rx metformin 1,000 mg tablet 1,000 mg PO BID 06/13/23 01/24/24 01/25/24 History buspirone 30 mg tablet 30 mg PO BID #180 tabs 08/15/23 01/24/24 01/25/24 Rx mirtazapine 30 mg tablet 30 mg PO BEDTIME #90 tabs 08/15/23 01/24/24 01/25/24 Rx Diabetic shoes with 3 sets of #1 ea 09/08/23 12/26/23 Unknown Rx insoles nitroglycerin 0.4 mg sublingual 0.4 mg sublingual Q5M PRN chest 09/15/23 01/24/24 Unknown Rx tablet pain #25 tabs budesonide 160 mcg-glycopyr 9 2 inh inhalation BID 12/26/23 01/24/24 01/25/24 History mcg-formot 4.8 mcg/actuation HFA inhaler (Breztri Aerosphere) furosemide 20 mg tablet (Lasix) 20 mg PO DAILY #90 tabs 01/16/24 01/24/24 01/25/24 Rx cyanocobalamin (vitamin B-12) 1,000 mcg IM .[id number] 01/24/24 01/24/24 Unknown History 1,000 mcg/mL injection solution Allergies Allergy/AdvReac Type Severity Reaction Status Date / Time No Known Allergies Allergy Verified 01/24/24 08:51 [facility] Anesthesia Medical History History of MRSA infection GERD (gastroesophageal reflux disease) Peripheral neuropathy Type 2 diabetes mellitus Psychiatric care Anemia Peripheral arterial disease COPD (chronic obstructive pulmonary disease) Dyslipidemia Essential hypertension Nicotine dependence, cigarettes, uncomplicated Schizoaffective disorder, depressive type BPH with obstruction/lower urinary tract symptoms Surgical History History of coronary artery stent placement History of eye surgery x3 History of surgery on arm Multiple procedures on the right arm related to MRSA infection H/O foot surgery x 2 for diabetic foot ulcer H/O colonoscopy yrs ago H/O esophagogastroduodenoscopy Status post femoral-popliteal bypass surgery Left femoropopliteal bypass in 2013 with redo bypass in 2014 S/P angioplasty Angioplasty with stent placement to the right leg Family History Family/Other Stroke Cancer Diabetes Hypertension Unknown Cancer Father , at age 59 Alcoholic Mother Lung disease Stroke Denies family history of Anesthesia complication Bleeding disorder Social History Smoking and tobacco/nicotine status: current every day tobacco/nicotine user cigarettes Packs smoked per day: 1 Years cigarettes smoked: 54 Alcohol intake: former Substance/Drug Use: never Household members: other Details: room mate Marital status: Current occupational status: disabled Current gender identity: Male Data Anesthesia Cardiac Studies: Echocardiogram 03/30/22 Sestamibi Stress Test (Cardiology) 02/08/22 Holter Monitor 01/27/22
[2024-01-26] MEDS: sodium chloride 0.9% 1,000 ML 30 ML IV (07:56)
[2024-01-26 07:59] LABS: Glucose Point of Care 110 mg/dL (70-110)
[2024-01-26 09:35] VITALS: BP 121/63; PULSE 74; RESP 20; TEMP 36.1; O2SAT 97
[2024-01-26 09:45] VITALS: BP 139/70; PULSE 79; RESP 18; O2SAT 93
[2024-01-26 09:55] VITALS: BP 140/75; PULSE 80; RESP 18; O2SAT 96
--- NOTE | 2024-01-26 14:22 | ANE.PACU2 ---
Inpatient post-anesthesia follow up: Airway intact: Yes Vital signs: Temperature 97 F Pulse Rate 80 Respiratory Rate 18 Blood Pressure 140/75 Pulse Oximetry 96 Oxygen Delivery Me thod Room Air Oxygen Flow Rate 2 Fraction of Inspir ed Oxygen Hydration adequate: Yes Nausea and vomiting: No Pain level: 2 Mental status: Baseline
== END 2024-01-26 10:27 | disposition home or self-care (01) ==
PROVIDERS: PCP Family Medicine; Visit Provider Surgery
PROC: 0DJ08ZZ Inspection of Upper Intestinal Tract, Via Natural or Artificial Opening Endoscopic (ICD-10-PCS; CPT 43235; principal; 2024-01-26 08:35)
PROC: 0DJD8ZZ Inspection of Lower Intestinal Tract, Via Natural or Artificial Opening Endoscopic (ICD-10-PCS; CPT 45378; 2024-01-26 08:35)
DX: Z12.11 Encounter for screening for malignant neoplasm of colon (principal); D50.9 Iron deficiency anemia, unspecified; K29.50 Unspecified chronic gastritis without bleeding; D12.8 Benign neoplasm of rectum; J44.9 Chronic obstructive pulmonary disease, unspecified; I25.10 Atherosclerotic heart disease of native coronary artery without angina pectoris; I10 Essential (primary) hypertension; I25.2 Old myocardial infarction; Z95.5 Presence of coronary angioplasty implant and graft; N40.0 Benign prostatic hyperplasia without lower urinary tract symptoms; E78.5 Hyperlipidemia, unspecified; E11.40 Type 2 diabetes mellitus with diabetic neuropathy, unspecified; Z79.82 Long term (current) use of aspirin; N40.1 Benign prostatic hyperplasia with lower urinary tract symptoms; N13.8 Other obstructive and reflux uropathy; F17.210 Nicotine dependence, cigarettes, uncomplicated
CPT/HCPCS: 36416; 43235; 43239; 45330; 82962; 88305; J2704; J7030

== ENCOUNTER → 2024-02-08 08:04 | Outpatient (BNVA) | payer MEDICARE, MEDICAID, SELFPAY ==
[2023-11-24 14:57] VITALS: BP 153/78; BMI 26.9
== END ==
PROVIDERS: PCP Family Medicine; Visit Provider Surgery
DX: Z09 Encounter for follow-up examination after completed treatment for conditions other than malignant neoplasm (principal)
CPT/HCPCS: 99203; 99213

== ENCOUNTER 2024-02-16 12:40 | Oncology outpatient (recurring) (ONCR) | payer MEDICARE, MEDICAID, OTHER, SELFPAY ==
[2023-11-24 14:57] VITALS: BP 153/78; BMI 26.9
[2024-02-16 15:39] LABS: Basophils % 0.4 %; Eosinophils # 0.6 10^3/uL (0.0-0.8); Eosinophils % 8.1 %; Hematocrit 35.9 % (37-53); Lymphocytes # 2.1 10^3/uL (0.8-4.8); Lymphocytes % 28.3 %; Mean Corpuscular HGB Conc 32.6 g/dL (30-55); Mean Corpuscular Hemoglobin 30.5 pg (27-33); Mean Corpuscular Volume 93.7 fl (82-101); Mean Platelet Volume 9.3 fL (7.4-10.4); Monocytes # 0.5 10^3/uL (0.2-0.9); Monocytes % 6.8 %; Neutrophils # 4.09 10^3/uL (1.8-7.7); Neutrophils % 55.9 %; Nucleated Red Blood Cells % 0 %; Platelet Count 270 10^3/cmm (157-399); Red Blood Count 3.83 10^6/uL (3.85-5.65); Red Cell Distribution Width 14.1 % (12.1-15.1); White Blood Count 7.32 10^3/uL (3.29-11.43)
[2024-02-16 15:58] LABS: Alanine Aminotransferase 18 U/L (0-41); Alkaline Phosphatase 129 U/L (40-130); Anion Gap 15.8 (5-19); Aspartate Amino Transferase 18 U/L (0-40); Blood Urea Nitrogen 42 mg/dL (8-23); Calcium 8.8 mg/dL (8.5-10.5); Carbon Dioxide 25 mmol/L (22-29); Chloride 101 mmol/L (98-107); Creatinine Clr Calc Pharmacy 56.9183; Ferritin 715 ng/mL (30-400); Globulin 3.6 g/dL (1.3-4.6); Glomerular Filtration Rate 74.1 mL/min (90-130); Glucose 127 mg/dL (65-115); Iron 83 ug/dL (59-158); Osmolality Calculated 294 mOsm/kg (285-295); Percent Saturation 32.4 % (20-50); Potassium 5.8 mmol/L (3.5-5.1); Sodium 136 mmol/L (136-145); Total Bilirubin 0.2 mg/dL (0.15-1.2); Total Iron Binding Capacity 256 mcg/dl; Total Protein 7.6 g/dL (6.6-8.7); Unsaturated Iron Binding 173 ug/dL (112-347)
== END 2024-02-26 23:59 | disposition home or self-care (01) ==
PROVIDERS: PCP Family Medicine; Visit Provider Internal Medicine Medical Oncology
DX: D64.9 Anemia, unspecified (principal); E11.42 Type 2 diabetes mellitus with diabetic polyneuropathy; L84 Corns and callosities; L60.3 Nail dystrophy; E11.51 Type 2 diabetes mellitus with diabetic peripheral angiopathy without gangrene; Z53.9 Procedure and treatment not carried out, unspecified reason; I73.9 Peripheral vascular disease, unspecified; Z79.84 Long term (current) use of oral hypoglycemic drugs
CPT/HCPCS: 36415; 80053; 82728; 83540; 83550; 85025; 99214

== ENCOUNTER 2024-02-24 12:31 | Emergency (ER) | payer MEDICARE, MEDICAID, SELFPAY ==
[2023-11-24 14:57] VITALS: BP 153/78; BMI 26.9
[2024-02-24 12:50] VITALS: BP 130/53; PULSE 102; RESP 18; TEMP 36.6; O2SAT 95
--- NOTE | 2024-02-24 13:24 | W.ED.EXTPRO ---
HPI - Extremity Problem General: Chief complaint: Extremity Problem,Nontraumatic Stated complaint: left foot pain Time Seen by Provider: 02/24/24 13:02 Source: patient Mode of arrival: ambulatory Limitations: no limitations History of Present Illness: Patient is a 69-year-old male with a history of severe peripheral arterial disease here for complaints of left leg pain. Patient states he is a longstanding smoker of over 50 years. He has no desire to quit. He has femoropopliteal bypasses bilaterally due to his PAD. He sees vascular in [place] and next appointment with them is next week. Here stating over the past few weeks he has noticed developing sore to L great toe. Started on Bactrim by Dr. Mehta on 02/15. Denies redness to the foot or drainage. No streaking. No fevers. MD Complaint: extremity pain Onset (ago): week(s) Pain Consistency: constant Location: left and lower extremity Radiation: none Relieving factors: nothing Exacerbating factors: nothing Associated symptoms: Reports other (sore); Deny chest pain Review of Systems Card: Denies: chest pain Resp: Denies: dyspnea Musc: Reports: extremity pain; Denies: extremity swelling, joint pain or joint swelling Skin/Breast: Reports: other (sore to L great toe/bottom of foot) Neuro: Denies: weakness in extremities or difficulty walking [facility] PFSH: Medical History History of MRSA infection GERD (gastroesophageal reflux disease) Peripheral neuropathy Type 2 diabetes mellitus Psychiatric care Anemia Peripheral arterial disease COPD (chronic obstructive pulmonary disease) Dyslipidemia Essential hypertension Nicotine dependence, cigarettes, uncomplicated Schizoaffective disorder, depressive type BPH with obstruction/lower urinary tract symptoms Surgical History History of coronary artery stent placement History of eye surgery x3 History of surgery on arm Multiple procedures on the right arm related to MRSA infection H/O foot surgery x 2 for diabetic foot ulcer H/O colonoscopy yrs ago H/O esophagogastroduodenoscopy Status post femoral-popliteal bypass surgery Left femoropopliteal bypass in 2012 with redo bypass in 2014 S/P angioplasty Angioplasty with stent placement to the right leg Family History Family/Other Stroke Cancer Diabetes Hypertension Unknown Cancer Father , at age 59 Alcoholic Mother Lung disease Stroke Denies family history of Anesthesia complication Bleeding disorder Social History Smoking and tobacco/nicotine status: current every day tobacco/nicotine user cigarettes Packs smoked per day: 1 Years cigarettes smoked: 54 Alcohol intake: former Substance/Drug Use: never Household members: other Details: room mate Marital status: Current occupational status: disabled Current gender identity: Male Physical Exam Const: COMMON NORMALS: no acute distress, no limitations and alert GENERAL APPEARANCE: cooperative NUTRITIONAL APPEARANCE: thin ORIENTATION/CONSCIOUSNESS: Yes awake, Yes oriented to person, Yes oriented to place and Yes oriented to time Extremity: COMMON NORMALS: full ROM, no joint enlargement, no calf tenderness and no pedal edema GENERAL: Yes normal exam except as noted OTHER: palpable pulses to R LE but cannot locate them on L; foot is not cool to the touch-somewhat delayed cap refill; bilateral varicosities; small dime sized black sore developing to lateral aspect of L great toe without evidence for infection; one small developing ulcer-stage 1-at plantar base of 4-5 digits-no infection Neuro: COMMON NORMALS: moves all extremities and no focal motor deficits SENSORIUM/ORIENTATION: Yes alert, Yes oriented to person, Yes oriented to place and Yes oriented to time Skin: NARRATIVE SKIN EXAM: see above for pertinent skin findings Course Vital Signs: Vital signs: Vital Signs Temperature 97.8 F 02/24/24 12:50 Pulse Rate 102 H 02/24/24 12:50 Respiratory Rate 18 02/24/24 12:50 Blood Pressure 130/53 02/24/24 12:50 Pulse Oximetry 95 02/24/24 12:50 Oxygen Delivery Me thod Room Air 02/24/24 12:50 MDM - Extremity (Nontraumatic) Medical Decision Making Patient with a history of severe PAD. He refuses to quit smoking. He has an upcoming appointment with his vascular surgeon on 03/01. Ultrasound today showing a patent femoropopliteal bypass. He does have monophasic flow to his DP and PT arteries. This point there is nothing to do from the emergency standpoint. He can follow-up with his surgeon next week. XR interpretation done by ED provider, pending radiology final review (prelim report by [facility]) Discharge Plan Discharge Patient Disposition: Home Clinical Impression: Peripheral arterial disease Cigarette nicotine dependence Qualifiers: Substance use status: unspecified nicotine-induced disorder Qualified Code(s): F17.219 - Nicotine dependence, cigarettes, with unspecified nicotine-induced disorders Condition: Stable Prescriptions: No Action gabapentin 300 mg capsule 300 mg PO TID tamsulosin 0.4 mg capsule 0.4 mg PO BEDTIME ascorbic acid (vitamin C) 500 mg capsule 500 mg PO DAILY finasteride 5 mg tablet 5 mg PO QAM ferrous sulfate 325 mg (65 mg iron) tablet 325 mg PO QAM mirtazapine 30 mg tablet 30 mg PO BEDTIME Qty: 90 2RF buspirone 30 mg tablet 30 mg PO BID Qty: 180 2RF Breztri Aerosphere 160-9-4.8 mcg/actuation HFA aerosol inhaler 2 inh inhalation BID metformin 1,000 mg tablet 1,000 mg PO BID sulfamethoxazole-trimethoprim [Bactrim DS] 800-160 mg tablet 1 tab PO Q12H 7 Days Qty: 14 0RF Rx Instructions: for 7 days (rx filled 02/16/24) (DME) Diabetic shoes with 3 sets of insoles See Rx Instructions .Route .MEDSUPPLY Qty: 1 0RF Rx Instructions: As directed by Dot Kuhn nitroglycerin 0.4 mg tablet, sublingual 0.4 mg sublingual Q5M PRN (Reason: chest pain) Qty: 25 2RF Rx Instructions: do not exceed 3 doses per episode docusate sodium 100 mg Tablet 100 mg PO BID PRN (Reason: Constipation) sucralfate 100 mg/mL suspension 10 ml PO BID Rx Instructions: for 4 weeks prednisolone acetate 1 % drops,suspension 1 drp ophthalmic (eye) QID Rx Instructions: left eye aripiprazole [Abilify] 10 mg tablet 10 mg PO QAM clopidogrel 75 mg tablet 75 mg PO QAM aspirin 81 mg tablet,delayed release (DR/EC) 81 mg PO QAM pravastatin 80 mg tablet 80 mg PO BEDTIME Lasix 20 mg tablet 20 mg PO QAM cyanocobalamin (vitamin B-12) 1,000 mcg/mL solution 1,000 mcg IM Q30D pantoprazole 40 mg tablet,delayed release (DR/EC) 40 mg PO BID 45 Days Qty: 90 0RF Discharge Orders: Discharge ED (Routine); Ordered 03/29/24 Ordered By: Cristina Vasques Referrals: Diego Glass MD [Primary Care Provider] - Patient Instructions: Peripheral Artery Disease (ED) Activity Restrictions/Additional Instructions: We discussed please follow-up with your vascular surgeon on 03/01 as scheduled. 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
--- NOTE | 2024-02-24 13:27 | USR_ITS ---
PROCEDURE INFORMATION: Exam: US Duplex Left Lower Extremity Arteries Or Arterial Bypass Grafts Exam date and time: 02/24/2024 1:56 PM Age: 69 years old Clinical indication: Pain; Leg, lower; Left; Prior surgery; Surgery date: 6+ months; Surgery type: Lt fem/pop bypass graft; Additional info: Ulcer/wound; Non-palpable pulses TECHNIQUE: Imaging protocol: Left Real-time duplex scan of the arteries or arterial bypass grafts of the left lower extremity with 2-D dyer scale, color Doppler flow and spectral waveform analysis. Images documented and saved. COMPARISON: CT angio abd aorta runof [id number] 03/11/2021 8:46 AM FINDINGS: Left external iliac artery: Elevated peak systolic velocities in the left common iliac artery measuring up to 233.7 cm/s consistent with significant stenosis. Left common femoral artery: No occlusion or significant stenosis. Left superficial femoral artery: Left femoral popliteal bypass graft is patent. Left popliteal artery: Elevated peak systolic velocity in the popliteal artery at 193 cm/second. Other arteries: Monophasic flow present throughout the visualized vessels of the left leg. Other findings: Monophasic waveforms throughout the left leg. Normal peak systolic velocities in the visualized posterior tibialis and dorsalis [place]. US/[place] [id number] IMPRESSION: Patent femoropopliteal bypass graft. Significant stenoses of the left common iliac and popliteal arteries.
--- NOTE | 2024-02-24 13:39 | PC.PHAR ---
pts family states the pt has [facility] but states she can verify pts medications-pts family states the pt takes the medications entered states the pt no longer has or uses a ventolin inhaler
[2024-02-24 15:00] VITALS: BP 129/68; PULSE 95; RESP 16; TEMP 36.6; O2SAT 96
== END 2024-02-24 14:59 | disposition home or self-care (01) ==
PROVIDERS: Emergency Provider Physician Assistant; PCP Family Medicine
DX: I73.9 Peripheral vascular disease, unspecified (principal); F17.219 Nicotine dependence, cigarettes, with unspecified nicotine-induced disorders; Z79.02 Long term (current) use of antithrombotics/antiplatelets; Z79.82 Long term (current) use of aspirin; Z79.84 Long term (current) use of oral hypoglycemic drugs; E11.42 Type 2 diabetes mellitus with diabetic polyneuropathy; J44.9 Chronic obstructive pulmonary disease, unspecified; E78.5 Hyperlipidemia, unspecified; I10 Essential (primary) hypertension
CPT/HCPCS: 93926; 99284

== ENCOUNTER → 2024-03-14 12:40 | Outpatient (BNVA) | payer MEDICARE, MEDICAID, SELFPAY ==
[2023-11-24 14:57] VITALS: BP 153/78; BMI 26.9
== END ==
PROVIDERS: PCP Family Medicine; Visit Provider Podiatrist Foot & Ankle Surgery
DX: L84 Corns and callosities (principal); I73.9 Peripheral vascular disease, unspecified; E11.42 Type 2 diabetes mellitus with diabetic polyneuropathy; L97.521 Non-pressure chronic ulcer of other part of left foot limited to breakdown of skin; E11.621 Type 2 diabetes mellitus with foot ulcer; Z79.84 Long term (current) use of oral hypoglycemic drugs
CPT/HCPCS: 99213

== ENCOUNTER 2024-03-23 08:41 | Oncology outpatient (recurring) (ONCR) | payer MEDICARE, MEDICAID, SELFPAY ==
[2023-11-24 14:57] VITALS: BP 153/78; BMI 26.9
[2024-03-23 09:03] LABS: Basophils # 0.1 10^3/uL (0.0-0.1); Basophils % 0.6 %; Eosinophils # 0.4 10^3/uL (0.0-0.8); Eosinophils % 4.6 %; Hematocrit 32.7 % (37-53); Lymphocytes # 1.6 10^3/uL (0.8-4.8); Lymphocytes % 18.8 %; Mean Corpuscular HGB Conc 32.7 g/dL (30-55); Mean Corpuscular Hemoglobin 30.8 pg (27-33); Mean Corpuscular Volume 94.2 fl (82-101); Mean Platelet Volume 8.5 fL (7.4-10.4); Monocytes # 0.6 10^3/uL (0.2-0.9); Monocytes % 7.1 %; Neutrophils # 5.98 10^3/uL (1.8-7.7); Neutrophils % 68.3 %; Nucleated Red Blood Cells % 0 %; Platelet Count 304 10^3/cmm (157-399); Red Blood Count 3.47 10^6/uL (3.85-5.65); White Blood Count 8.74 10^3/uL (3.29-11.43)
[2024-03-23 09:21] LABS: Alanine Aminotransferase 15 U/L (0-41); Albumin Level 3.8 g/dL (3.5-5.2); Alkaline Phosphatase 95 U/L (40-130); Anion Gap 11.7 (5-19); Aspartate Amino Transferase 14 U/L (0-40); Blood Urea Nitrogen 26 mg/dL (8-23); Calcium 8.6 mg/dL (8.5-10.5); Carbon Dioxide 31 mmol/L (22-29); Chloride 95 mmol/L (98-107); Ferritin 468 ng/mL (30-400); Globulin 3.1 g/dL (1.3-4.6); Glomerular Filtration Rate 95.8 mL/min (90-130); Glucose 121 mg/dL (65-115); Iron 45 ug/dL (59-158); Osmolality Calculated 282 mOsm/kg (285-295); Percent Saturation 18.9 % (20-50); Potassium 4.7 mmol/L (3.5-5.1); Sodium 133 mmol/L (136-145); Total Bilirubin 0.2 mg/dL (0.15-1.2); Total Iron Binding Capacity 238 mcg/dl; Total Protein 6.9 g/dL (6.6-8.7); Unsaturated Iron Binding 193 ug/dL (112-347)
== END 2024-03-27 23:59 | disposition home or self-care (01) ==
PROVIDERS: PCP Family Medicine; Visit Provider Internal Medicine Medical Oncology
DX: D64.9 Anemia, unspecified (principal); E11.42 Type 2 diabetes mellitus with diabetic polyneuropathy; L84 Corns and callosities; L60.3 Nail dystrophy; E11.51 Type 2 diabetes mellitus with diabetic peripheral angiopathy without gangrene; I73.9 Peripheral vascular disease, unspecified; Z79.84 Long term (current) use of oral hypoglycemic drugs
CPT/HCPCS: 36415; 80053; 82728; 83540; 83550; 85025; 87070; 87077; 87186; 99214

== ENCOUNTER → 2024-03-29 13:04 | Outpatient (BNVA) | payer MEDICARE, MEDICAID, SELFPAY ==
[2023-11-24 14:57] VITALS: BP 153/78; BMI 26.9
== END ==
PROVIDERS: PCP Family Medicine; Visit Provider Thoracic Surgery (Cardiothoracic Vascular Surgery)
DX: E11.52 Type 2 diabetes mellitus with diabetic peripheral angiopathy with gangrene (principal); E11.621 Type 2 diabetes mellitus with foot ulcer; L89.892 Pressure ulcer of other site, stage 2
CPT/HCPCS: 11042; 99213

== ENCOUNTER → 2024-04-05 14:38 | Outpatient (BNVA) | payer MEDICARE, MEDICAID, SELFPAY ==
[2023-11-24 14:57] VITALS: BP 153/78; BMI 26.9
== END ==
PROVIDERS: PCP Family Medicine; Visit Provider Thoracic Surgery (Cardiothoracic Vascular Surgery)
DX: E11.52 Type 2 diabetes mellitus with diabetic peripheral angiopathy with gangrene (principal); E11.621 Type 2 diabetes mellitus with foot ulcer; L97.521 Non-pressure chronic ulcer of other part of left foot limited to breakdown of skin
CPT/HCPCS: 97597

== ENCOUNTER → 2024-04-12 14:26 | Outpatient (BNVA) | payer MEDICARE, MEDICAID, SELFPAY ==
[2023-11-24 14:57] VITALS: BP 153/78; BMI 26.9
== END ==
PROVIDERS: PCP Family Medicine; Visit Provider Thoracic Surgery (Cardiothoracic Vascular Surgery)
DX: E11.52 Type 2 diabetes mellitus with diabetic peripheral angiopathy with gangrene (principal); E11.621 Type 2 diabetes mellitus with foot ulcer; L97.522 Non-pressure chronic ulcer of other part of left foot with fat layer exposed
CPT/HCPCS: 97597; A6248

== ENCOUNTER 2024-04-20 10:36 | Oncology outpatient (recurring) (ONCR) | payer MEDICARE, MEDICAID, SELFPAY ==
[2023-11-24 14:57] VITALS: BP 153/78; BMI 26.9
[2024-04-19 09:09] LABS: Basophils # 0.1 10^3/uL (0.0-0.1); Basophils % 0.8 %; Eosinophils # 0.6 10^3/uL (0.0-0.8); Eosinophils % 6.6 %; Hematocrit 34.6 % (37-53); Lymphocytes # 1.8 10^3/uL (0.8-4.8); Mean Corpuscular HGB Conc 33.2 g/dL (30-55); Mean Corpuscular Hemoglobin 30.7 pg (27-33); Mean Corpuscular Volume 92.5 fl (82-101); Mean Platelet Volume 8.5 fL (7.4-10.4); Monocytes # 0.5 10^3/uL (0.2-0.9); Monocytes % 5.8 %; Neutrophils # 5.96 10^3/uL (1.8-7.7); Neutrophils % 66.2 %; Nucleated Red Blood Cells % 0 %; Platelet Count 290 10^3/cmm (157-399); Red Blood Count 3.74 10^6/uL (3.85-5.65); Red Cell Distribution Width 13.2 % (12.1-15.1); White Blood Count 8.99 10^3/uL (3.29-11.43)
[2024-04-19 09:31] LABS: Alanine Aminotransferase 11 U/L (0-41); Albumin Level 3.7 g/dL (3.5-5.2); Alkaline Phosphatase 77 U/L (40-130); Anion Gap 12.5 (5-19); Aspartate Amino Transferase 12 U/L (0-40); Blood Urea Nitrogen 19 mg/dL (8-23); Calcium 8.4 mg/dL (8.5-10.5); Carbon Dioxide 27 mmol/L (22-29); Chloride 92 mmol/L (98-107); Ferritin 383 ng/mL (30-400); Globulin 2.9 g/dL (1.3-4.6); Glomerular Filtration Rate 95.8 mL/min (90-130); Glucose 105 mg/dL (65-115); Iron 64 ug/dL (59-158); Osmolality Calculated 267 mOsm/kg (285-295); Percent Saturation 26.4 % (20-50); Potassium 4.5 mmol/L (3.5-5.1); Sodium 127 mmol/L (136-145); Total Bilirubin 0.2 mg/dL (0.15-1.2); Total Iron Binding Capacity 242 mcg/dl; Total Protein 6.6 g/dL (6.6-8.7); Unsaturated Iron Binding 178 ug/dL (112-347)
[2024-04-20 10:30] VITALS: BP 121/67; PULSE 94; RESP 17; TEMP 36.6; O2SAT 94
[2024-04-20] MEDS: sodium chloride 0.9% 500 ML 999 ML IV (10:56)
[2024-04-20 11:25] VITALS: BP 121/72; PULSE 88; RESP 17; TEMP 36.5
== END 2024-04-27 23:59 | disposition home or self-care (01) ==
PROVIDERS: Nurse Practitioner Family; PCP Family Medicine; Visit Provider Internal Medicine Medical Oncology
DX: D50.9 Iron deficiency anemia, unspecified; Z53.9 Procedure and treatment not carried out, unspecified reason
CPT/HCPCS: 36415; 80053; 82728; 83540; 83550; 85025; 96360; 97597; J7040

== ENCOUNTER → 2024-04-25 12:41 | Outpatient (BNVA) | payer MEDICARE, MEDICAID, SELFPAY ==
[2023-11-24 14:57] VITALS: BP 153/78; BMI 26.9
== END ==
PROVIDERS: PCP Family Medicine; Visit Provider Podiatrist Foot & Ankle Surgery
DX: L84 Corns and callosities (principal); I73.9 Peripheral vascular disease, unspecified; L97.521 Non-pressure chronic ulcer of other part of left foot limited to breakdown of skin; E11.42 Type 2 diabetes mellitus with diabetic polyneuropathy; L60.3 Nail dystrophy; E11.621 Type 2 diabetes mellitus with foot ulcer; Z79.84 Long term (current) use of oral hypoglycemic drugs
CPT/HCPCS: 11055; 11721

== ENCOUNTER → 2024-05-03 10:18 | Outpatient (BNVA) | payer MEDICARE, MEDICAID, SELFPAY ==
[2023-11-24 14:57] VITALS: BP 153/78; BMI 26.9
== END ==
PROVIDERS: PCP Family Medicine; Visit Provider Thoracic Surgery (Cardiothoracic Vascular Surgery)
DX: E11.52 Type 2 diabetes mellitus with diabetic peripheral angiopathy with gangrene (principal); E11.621 Type 2 diabetes mellitus with foot ulcer; L97.521 Non-pressure chronic ulcer of other part of left foot limited to breakdown of skin
CPT/HCPCS: 97597

== ENCOUNTER 2024-05-15 08:00 | Oncology outpatient (recurring) (ONCR) | payer MEDICARE, MEDICAID, SELFPAY ==
[2023-11-24 14:57] VITALS: BP 153/78; BMI 26.9
[2024-05-11 11:46] LABS: Basophils % 0.3 %; Eosinophils # 0.3 10^3/uL (0.0-0.8); Eosinophils % 2.9 %; Hematocrit 22.6 % (37-53); Lymphocytes # 1.1 10^3/uL (0.8-4.8); Lymphocytes % 12.4 %; Mean Corpuscular HGB Conc 32.3 g/dL (30-55); Mean Corpuscular Hemoglobin 31.7 pg (27-33); Mean Corpuscular Volume 98.3 fl (82-101); Mean Platelet Volume 8.6 fL (7.4-10.4); Monocytes # 0.5 10^3/uL (0.2-0.9); Monocytes % 5.8 %; Neutrophils # 6.78 10^3/uL (1.8-7.7); Neutrophils % 77.8 %; Nucleated Red Blood Cells % 0 %; Platelet Count 318 10^3/cmm (157-399); Red Cell Distribution Width 16.2 % (12.1-15.1); White Blood Count 8.72 10^3/uL (3.29-11.43)
[2024-05-11 12:03] LABS: Iron 28 ug/dL (59-158); Percent Saturation 10.7 % (20-50); Total Iron Binding Capacity 260 mcg/dl; Unsaturated Iron Binding 232 ug/dL (112-347)
[2024-05-14 11:44] VITALS: BP 103/56; PULSE 84; RESP 16; TEMP 36.8; O2SAT 94
[2024-05-14 12:03] LABS: Basophils # 0.1 10^3/uL (0.0-0.1); Basophils % 0.6 %; Eosinophils # 0.4 10^3/uL (0.0-0.8); Eosinophils % 4.8 %; Hematocrit 23.7 % (37-53); Lymphocytes # 1.2 10^3/uL (0.8-4.8); Lymphocytes % 14.2 %; Mean Corpuscular HGB Conc 33.3 g/dL (30-55); Mean Corpuscular Hemoglobin 32.9 pg (27-33); Mean Corpuscular Volume 98.8 fl (82-101); Mean Platelet Volume 8.4 fL (7.4-10.4); Monocytes # 0.4 10^3/uL (0.2-0.9); Monocytes % 4.8 %; Neutrophils # 6.36 10^3/uL (1.8-7.7); Neutrophils % 74.9 %; Nucleated Red Blood Cells % 0 %; Platelet Count 337 10^3/cmm (157-399); Red Cell Distribution Width 16.2 % (12.1-15.1)
[2024-05-15] VITALS (11 sets, daily range): BP systolic 124–168; BP diastolic 67–85; PULSE 61–102; RESP 16–18; TEMP 36–36.8; O2SAT 94–100
[2024-05-15] MEDS: acetaminophen 325 mg Tablet 650 MG PO (08:09)
[2024-05-15] MEDS: diphenhydrAMINE 25 mg Capsule PO (08:09)
== END 2024-05-27 23:59 | disposition home or self-care (01) ==
PROVIDERS: PCP Family Medicine; Visit Provider Internal Medicine Medical Oncology
DX: D50.9 Iron deficiency anemia, unspecified (principal); Z53.9 Procedure and treatment not carried out, unspecified reason; E11.621 Type 2 diabetes mellitus with foot ulcer; L97.521 Non-pressure chronic ulcer of other part of left foot limited to breakdown of skin
CPT/HCPCS: 36415; 36430; 83540; 83550; 85025; 86850; 86900; 86920; P9040

== ENCOUNTER → 2024-05-17 08:41 | Outpatient (BNVA) | payer MEDICARE, MEDICAID, SELFPAY ==
[2023-11-24 14:57] VITALS: BP 153/78; BMI 26.9
== END ==
PROVIDERS: PCP Family Medicine; Visit Provider Thoracic Surgery (Cardiothoracic Vascular Surgery)
DX: E11.52 Type 2 diabetes mellitus with diabetic peripheral angiopathy with gangrene (principal); E11.621 Type 2 diabetes mellitus with foot ulcer; L97.521 Non-pressure chronic ulcer of other part of left foot limited to breakdown of skin
CPT/HCPCS: 97597

== ENCOUNTER → 2024-05-24 10:07 | Outpatient (BNVA) | payer MEDICARE, MEDICAID, SELFPAY ==
[2023-11-24 14:57] VITALS: BP 153/78; BMI 26.9
== END ==
PROVIDERS: PCP Family Medicine; Visit Provider Thoracic Surgery (Cardiothoracic Vascular Surgery)
DX: E11.52 Type 2 diabetes mellitus with diabetic peripheral angiopathy with gangrene (principal); E11.621 Type 2 diabetes mellitus with foot ulcer; L97.521 Non-pressure chronic ulcer of other part of left foot limited to breakdown of skin
CPT/HCPCS: 97597; A6248

== ENCOUNTER 2024-05-25 08:00 | Outpatient (CLI) | payer MEDICARE, MEDICAID, SELFPAY ==
[2023-11-24 14:57] VITALS: BP 153/78; BMI 26.9
--- NOTE | 2024-05-25 08:15 | NM_ITS ---
WS: [id number] NUCLEAR MEDICINE GASTRIC EMPTYING EXAMINATION HISTORY: GASTROPARESIS COMPARISON: None available. TECHNIQUE: The patient ingested a meal containing 1.04 mCi of Tc 99m sulfur colloid mixed with eggs. The patient was placed in supine position and imaging over the abdomen was performed for a total of 9 0 minutes. Computer acquisition with the region of interest placed over the stomach to evaluate gastr ic emptying half-time. Good distention of the stomach with the sulfur colloid laced meal. At 2 hours post meal less than 50% emptying of the stomach. At 120 minutes approximately 29% emptying of the stomach consistent with ga stroparesis. NM/[place] [id number] IMPRESSION: Mild gastroparesis.
== END 2024-05-25 08:01 | disposition home or self-care (01) ==
PROVIDERS: PCP Family Medicine; Visit Provider Family Medicine
DX: K31.84 Gastroparesis (principal)
CPT/HCPCS: 78264; A9541

== ENCOUNTER → 2024-06-07 09:57 | Outpatient (BNVA) | payer MEDICARE, MEDICAID, SELFPAY ==
[2023-11-24 14:57] VITALS: BP 153/78; BMI 26.9
== END ==
PROVIDERS: PCP Family Medicine; Visit Provider Thoracic Surgery (Cardiothoracic Vascular Surgery)
DX: E11.52 Type 2 diabetes mellitus with diabetic peripheral angiopathy with gangrene (principal); E11.621 Type 2 diabetes mellitus with foot ulcer; L97.521 Non-pressure chronic ulcer of other part of left foot limited to breakdown of skin
CPT/HCPCS: 97597

== ENCOUNTER → 2024-06-14 10:16 | Outpatient (BNVA) | payer MEDICARE, MEDICAID, SELFPAY ==
[2023-11-24 14:57] VITALS: BP 153/78; BMI 26.9
== END ==
PROVIDERS: PCP Family Medicine; Visit Provider Thoracic Surgery (Cardiothoracic Vascular Surgery)
DX: E11.52 Type 2 diabetes mellitus with diabetic peripheral angiopathy with gangrene (principal); E11.621 Type 2 diabetes mellitus with foot ulcer; L97.521 Non-pressure chronic ulcer of other part of left foot limited to breakdown of skin
CPT/HCPCS: 97597

== ENCOUNTER 2024-06-18 12:45 | Oncology outpatient (recurring) (ONCR) | payer MEDICARE, MEDICAID, SELFPAY ==
[2023-11-24 14:57] VITALS: BP 153/78; BMI 26.9
[2024-05-28 14:11] LABS: Basophils # 0.1 10^3/uL (0.0-0.1); Basophils % 0.8 %; Eosinophils # 0.7 10^3/uL (0.0-0.8); Eosinophils % 8.4 %; Hematocrit 32.4 % (37-53); Lymphocytes # 1.8 10^3/uL (0.8-4.8); Lymphocytes % 20.5 %; Mean Corpuscular HGB Conc 32.4 g/dL (30-55); Mean Corpuscular Hemoglobin 31.5 pg (27-33); Mean Corpuscular Volume 97.3 fl (82-101); Mean Platelet Volume 8.7 fL (7.4-10.4); Monocytes # 0.4 10^3/uL (0.2-0.9); Monocytes % 4.1 %; Neutrophils # 5.81 10^3/uL (1.8-7.7); Neutrophils % 65.5 %; Nucleated Red Blood Cells % 0 %; Platelet Count 315 10^3/cmm (157-399); Red Blood Count 3.33 10^6/uL (3.85-5.65); Red Cell Distribution Width 15.3 % (12.1-15.1); White Blood Count 8.85 10^3/uL (3.29-11.43)
[2024-05-28 14:37] LABS: Alanine Aminotransferase 16 U/L (0-41); Albumin Level 3.6 g/dL (3.5-5.2); Alkaline Phosphatase 71 U/L (40-130); Anion Gap 10.9 (5-19); Aspartate Amino Transferase 14 U/L (0-40); Blood Urea Nitrogen 22 mg/dL (8-23); Calcium 8.4 mg/dL (8.5-10.5); Carbon Dioxide 26 mmol/L (22-29); Chloride 100 mmol/L (98-107); Globulin 2.7 g/dL (1.3-4.6); Glomerular Filtration Rate 83.7 mL/min (90-130); Glucose 103 mg/dL (65-115); Iron 68 ug/dL (59-158); Osmolality Calculated 278 mOsm/kg (285-295); Percent Saturation 27.9 % (20-50); Potassium 4.9 mmol/L (3.5-5.1); Sodium 132 mmol/L (136-145); Total Bilirubin 0.2 mg/dL (0.15-1.2); Total Iron Binding Capacity 243 mcg/dl; Total Protein 6.3 g/dL (6.6-8.7); Unsaturated Iron Binding 175 ug/dL (112-347)
[2024-06-04 12:18] LABS: Basophils # 0.1 10^3/uL (0.0-0.1); Basophils % 0.6 %; Eosinophils # 0.5 10^3/uL (0.0-0.8); Eosinophils % 5.8 %; Hematocrit 32.5 % (37-53); Lymphocytes # 1.7 10^3/uL (0.8-4.8); Lymphocytes % 20.8 %; Mean Corpuscular HGB Conc 33.5 g/dL (30-55); Mean Corpuscular Hemoglobin 31.8 pg (27-33); Mean Corpuscular Volume 94.8 fl (82-101); Mean Platelet Volume 8.8 fL (7.4-10.4); Monocytes # 0.4 10^3/uL (0.2-0.9); Monocytes % 4.9 %; Neutrophils # 5.55 10^3/uL (1.8-7.7); Neutrophils % 67.4 %; Nucleated Red Blood Cells % 0 %; Platelet Count 308 10^3/cmm (157-399); Red Blood Count 3.43 10^6/uL (3.85-5.65); Red Cell Distribution Width 14.6 % (12.1-15.1); White Blood Count 8.23 10^3/uL (3.29-11.43)
[2024-06-04 12:37] LABS: Iron 71 ug/dL (59-158); Percent Saturation 27.8 % (20-50); Total Iron Binding Capacity 255 mcg/dl; Unsaturated Iron Binding 184 ug/dL (112-347)
[2024-06-18 13:14] LABS: Basophils # 0.1 10^3/uL (0.0-0.1); Basophils % 0.7 %; Eosinophils # 0.8 10^3/uL (0.0-0.8); Eosinophils % 8.7 %; Hematocrit 34.2 % (37-53); Lymphocytes # 1.9 10^3/uL (0.8-4.8); Lymphocytes % 20.5 %; Mean Corpuscular HGB Conc 32.5 g/dL (30-55); Mean Corpuscular Hemoglobin 31.1 pg (27-33); Mean Corpuscular Volume 95.8 fl (82-101); Mean Platelet Volume 8.6 fL (7.4-10.4); Monocytes # 0.5 10^3/uL (0.2-0.9); Monocytes % 5.6 %; Neutrophils # 5.92 10^3/uL (1.8-7.7); Neutrophils % 64.2 %; Nucleated Red Blood Cells % 0 %; Platelet Count 299 10^3/cmm (157-399); Red Blood Count 3.57 10^6/uL (3.85-5.65); Red Cell Distribution Width 14.7 % (12.1-15.1); White Blood Count 9.22 10^3/uL (3.29-11.43)
[2024-06-18 13:29] LABS: Alanine Aminotransferase 21 U/L (0-41); Albumin Level 3.9 g/dL (3.5-5.2); Alkaline Phosphatase 68 U/L (40-130); Anion Gap 15.1 (5-19); Aspartate Amino Transferase 15 U/L (0-40); Blood Urea Nitrogen 22 mg/dL (8-23); Calcium 8.9 mg/dL (8.5-10.5); Carbon Dioxide 25 mmol/L (22-29); Chloride 99 mmol/L (98-107); Globulin 2.8 g/dL (1.3-4.6); Glomerular Filtration Rate 95.8 mL/min (90-130); Glucose 102 mg/dL (65-115); Iron 77 ug/dL (59-158); Osmolality Calculated 282 mOsm/kg (285-295); Percent Saturation 27.4 % (20-50); Potassium 5.1 mmol/L (3.5-5.1); Sodium 134 mmol/L (136-145); Total Bilirubin 0.2 mg/dL (0.15-1.2); Total Iron Binding Capacity 281 mcg/dl; Total Protein 6.7 g/dL (6.6-8.7); Unsaturated Iron Binding 204 ug/dL (112-347)
== END 2024-06-27 23:59 | disposition home or self-care (01) ==
PROVIDERS: Nurse Practitioner Family; PCP Family Medicine; Visit Provider Internal Medicine Medical Oncology
DX: D50.9 Iron deficiency anemia, unspecified (principal); Z53.9 Procedure and treatment not carried out, unspecified reason; E11.621 Type 2 diabetes mellitus with foot ulcer; L97.521 Non-pressure chronic ulcer of other part of left foot limited to breakdown of skin; D64.9 Anemia, unspecified
CPT/HCPCS: 36415; 80053; 83540; 83550; 85025

== ENCOUNTER → 2024-06-19 13:30 | Outpatient (BNVA) | payer MEDICARE, MEDICAID, SELFPAY ==
[2023-11-24 14:57] VITALS: BP 153/78; BMI 26.9
== END ==
PROVIDERS: PCP Family Medicine; Visit Provider Internal Medicine
DX: E11.51 Type 2 diabetes mellitus with diabetic peripheral angiopathy without gangrene (principal); Z79.84 Long term (current) use of oral hypoglycemic drugs; L97.519 Non-pressure chronic ulcer of other part of right foot with unspecified severity; Z72.0 Tobacco use
CPT/HCPCS: 99214

== ENCOUNTER → 2024-06-21 08:49 | Outpatient (BNVA) | payer MEDICARE, MEDICAID, SELFPAY ==
[2023-11-24 14:57] VITALS: BP 153/78; BMI 26.9
== END ==
PROVIDERS: PCP Family Medicine; Visit Provider Thoracic Surgery (Cardiothoracic Vascular Surgery)
DX: E11.52 Type 2 diabetes mellitus with diabetic peripheral angiopathy with gangrene (principal); E11.621 Type 2 diabetes mellitus with foot ulcer; L97.521 Non-pressure chronic ulcer of other part of left foot limited to breakdown of skin
CPT/HCPCS: 97597

== ENCOUNTER → 2024-06-28 08:55 | Outpatient (BNVA) | payer MEDICARE, MEDICAID, SELFPAY ==
[2023-11-24 14:57] VITALS: BP 153/78; BMI 26.9
== END ==
PROVIDERS: PCP Family Medicine; Visit Provider Thoracic Surgery (Cardiothoracic Vascular Surgery)
DX: E11.52 Type 2 diabetes mellitus with diabetic peripheral angiopathy with gangrene (principal); E11.621 Type 2 diabetes mellitus with foot ulcer; L97.521 Non-pressure chronic ulcer of other part of left foot limited to breakdown of skin
CPT/HCPCS: 97597

== ENCOUNTER → 2024-07-05 08:37 | Outpatient (BNVA) | payer MEDICARE, MEDICAID, SELFPAY ==
[2023-11-24 14:57] VITALS: BP 153/78; BMI 26.9
== END ==
PROVIDERS: PCP Family Medicine; Visit Provider Thoracic Surgery (Cardiothoracic Vascular Surgery)
DX: E11.52 Type 2 diabetes mellitus with diabetic peripheral angiopathy with gangrene (principal); E11.621 Type 2 diabetes mellitus with foot ulcer; L97.521 Non-pressure chronic ulcer of other part of left foot limited to breakdown of skin
CPT/HCPCS: 97597

== ENCOUNTER → 2024-07-11 15:00 | Outpatient (BNVA) | payer MEDICARE, MEDICAID, SELFPAY ==
[2023-11-24 14:57] VITALS: BP 153/78; BMI 26.9
== END ==
PROVIDERS: PCP Family Medicine; Visit Provider Thoracic Surgery (Cardiothoracic Vascular Surgery)
DX: Z09 Encounter for follow-up examination after completed treatment for conditions other than malignant neoplasm (principal); Z87.2 Personal history of diseases of the skin and subcutaneous tissue
CPT/HCPCS: 99212; A6219

== ENCOUNTER 2024-07-25 09:00 | Oncology outpatient (recurring) (ONCR) | payer MEDICARE, MEDICAID, SELFPAY ==
[2023-11-24 14:57] VITALS: BP 153/78; BMI 26.9
[2024-07-17 13:04] LABS: Basophils # 0.1 10^3/uL (0.0-0.1); Basophils % 0.4 %; Eosinophils # 0.6 10^3/uL (0.0-0.8); Eosinophils % 5.1 %; Hematocrit 31.3 % (37-53); Lymphocytes # 1.9 10^3/uL (0.8-4.8); Lymphocytes % 15.9 %; Mean Corpuscular HGB Conc 33.5 g/dL (30-55); Mean Corpuscular Hemoglobin 31.3 pg (27-33); Mean Corpuscular Volume 93.4 fl (82-101); Mean Platelet Volume 8.4 fL (7.4-10.4); Monocytes # 0.6 10^3/uL (0.2-0.9); Monocytes % 5.1 %; Neutrophils # 8.49 10^3/uL (1.8-7.7); Neutrophils % 72.8 %; Nucleated Red Blood Cells % 0 %; Platelet Count 416 10^3/cmm (157-399); Red Blood Count 3.35 10^6/uL (3.85-5.65); White Blood Count 11.67 10^3/uL (3.29-11.43)
[2024-07-17 13:26] LABS: Alanine Aminotransferase 22 U/L (0-41); Albumin Level 3.7 g/dL (3.5-5.2); Alkaline Phosphatase 85 U/L (40-130); Anion Gap 14.2 (5-19); Aspartate Amino Transferase 15 U/L (0-40); Blood Urea Nitrogen 29 mg/dL (8-23); Calcium 9.2 mg/dL (8.5-10.5); Carbon Dioxide 26 mmol/L (22-29); Chloride 92 mmol/L (98-107); Ferritin 232 ng/mL (30-400); Globulin 2.8 g/dL (1.3-4.6); Glomerular Filtration Rate 111.8 mL/min (90-130); Glucose 136 mg/dL (65-115); Iron 38 ug/dL (59-158); Osmolality Calculated 272 mOsm/kg (285-295); Potassium 5.2 mmol/L (3.5-5.1); Sodium 127 mmol/L (136-145); Total Bilirubin 0.2 mg/dL (0.15-1.2); Total Iron Binding Capacity 292 mcg/dl; Total Protein 6.5 g/dL (6.6-8.7); Unsaturated Iron Binding 254 ug/dL (112-347)
[2024-07-25] MEDS: sodium chloride 0.9% 500 ML 75 ML IV (09:23)
[2024-07-25] MEDS: diphenhydrAMINE 50 mg/mL SDV 1mL 25 MG IVP (09:24)
[2024-07-25] MEDS: acetaminophen 325 mg Tablet 650 MG PO (09:24)
[2024-07-25] MEDS: iron dextran 25 MG in SYRINGE 1 EACH 30 MG IVP (09:57)
[2024-07-25 10:25] VITALS: BP 132/64; PULSE 73; RESP 16; TEMP 36.4; O2SAT 99
[2024-07-25] MEDS: iron dextran 1,000 MG in sodium chloride 0.9% 1,000 ML 250.75 MG IV (10:55)
[2024-07-25 14:59] VITALS: BP 151/74; PULSE 82; TEMP 36.2; O2SAT 90
== END 2024-07-28 23:59 | disposition home or self-care (01) ==
PROVIDERS: PCP Family Medicine; Visit Provider Internal Medicine Medical Oncology
DX: Z53.9 Procedure and treatment not carried out, unspecified reason (principal); Z79.899 Other long term (current) drug therapy; D50.9 Iron deficiency anemia, unspecified
CPT/HCPCS: 36415; 80053; 82728; 83540; 83550; 85025; 96365; 96366; 96375; 99214; J1200; J1750; J7030; J7040

== ENCOUNTER → 2024-08-07 08:41 | Outpatient (BNVA) | payer MEDICARE, MEDICAID, SELFPAY ==
[2024-08-07 09:00] VITALS: BP 153/78; BMI 26.9
== END ==
PROVIDERS: PCP Family Medicine; Visit Provider Podiatrist Foot & Ankle Surgery
DX: L84 Corns and callosities (principal); I73.9 Peripheral vascular disease, unspecified; L97.521 Non-pressure chronic ulcer of other part of left foot limited to breakdown of skin; E11.42 Type 2 diabetes mellitus with diabetic polyneuropathy; L60.3 Nail dystrophy; Z79.84 Long term (current) use of oral hypoglycemic drugs
CPT/HCPCS: 11056; 11721

== ENCOUNTER 2024-08-23 08:50 | Oncology outpatient (recurring) (ONCR) | payer MEDICARE, MEDICAID, SELFPAY ==
[2023-11-24 14:57] VITALS: BP 153/78; BMI 26.9
[2024-08-07 09:00] VITALS: BP 153/78; BMI 26.9
[2024-08-23 09:21] LABS: Basophils # 0.1 10^3/uL (0.0-0.1); Basophils % 0.7 %; Eosinophils # 0.6 10^3/uL (0.0-0.8); Eosinophils % 6.9 %; Hematocrit 35.7 % (37-53); Lymphocytes # 2.3 10^3/uL (0.8-4.8); Lymphocytes % 27.6 %; Mean Corpuscular HGB Conc 33.3 g/dL (30-55); Mean Corpuscular Hemoglobin 31.4 pg (27-33); Mean Corpuscular Volume 94.2 fl (82-101); Mean Platelet Volume 8.7 fL (7.4-10.4); Monocytes # 0.4 10^3/uL (0.2-0.9); Monocytes % 4.9 %; Neutrophils # 5.01 10^3/uL (1.8-7.7); Neutrophils % 59.3 %; Nucleated Red Blood Cells % 0 %; Platelet Count 313 10^3/cmm (157-399); Red Blood Count 3.79 10^6/uL (3.85-5.65); Red Cell Distribution Width 13.5 % (12.1-15.1); White Blood Count 8.44 10^3/uL (3.29-11.43)
[2024-08-23 09:38] LABS: Alanine Aminotransferase 23 U/L (0-41); Albumin Level 3.4 g/dL (3.5-5.2); Alkaline Phosphatase 87 U/L (40-130); Anion Gap 14.5 (5-19); Aspartate Amino Transferase 19 U/L (0-40); Blood Urea Nitrogen 20 mg/dL (8-23); Calcium 8.6 mg/dL (8.5-10.5); Carbon Dioxide 23 mmol/L (22-29); Chloride 96 mmol/L (98-107); Ferritin 614 ng/mL (30-400); Glomerular Filtration Rate 83.7 mL/min (90-130); Glucose 115 mg/dL (65-115); Iron 107 ug/dL (59-158); Osmolality Calculated 272 mOsm/kg (285-295); Percent Saturation 43.8 % (20-50); Potassium 4.5 mmol/L (3.5-5.1); Sodium 129 mmol/L (136-145); Total Bilirubin 0.2 mg/dL (0.15-1.2); Total Iron Binding Capacity 244 mcg/dl; Total Protein 6.4 g/dL (6.6-8.7); Unsaturated Iron Binding 137 ug/dL (112-347)
== END 2024-08-27 23:59 | disposition home or self-care (01) ==
PROVIDERS: Nurse Practitioner Psychiatric/Mental Health; PCP Family Medicine; Visit Provider Internal Medicine Medical Oncology
DX: D50.9 Iron deficiency anemia, unspecified (principal); Z79.899 Other long term (current) drug therapy; F17.210 Nicotine dependence, cigarettes, uncomplicated; I10 Essential (primary) hypertension; E11.42 Type 2 diabetes mellitus with diabetic polyneuropathy; Z79.84 Long term (current) use of oral hypoglycemic drugs
CPT/HCPCS: 36415; 80053; 82728; 83540; 83550; 85025; 99214

== ENCOUNTER → 2024-10-03 09:45 | Outpatient (BNVA) | payer MEDICARE, MEDICAID, SELFPAY ==
[2024-08-07 09:00] VITALS: BP 153/78; BMI 26.9
== END ==
PROVIDERS: PCP Family Medicine; Visit Provider Nurse Practitioner Family
DX: I25.10 Atherosclerotic heart disease of native coronary artery without angina pectoris (principal); Z98.62 Peripheral vascular angioplasty status; I49.8 Other specified cardiac arrhythmias; I73.9 Peripheral vascular disease, unspecified; I10 Essential (primary) hypertension; F17.219 Nicotine dependence, cigarettes, with unspecified nicotine-induced disorders; R94.31 Abnormal electrocardiogram [ECG] [EKG]
CPT/HCPCS: 93005; 99214

== ENCOUNTER 2024-10-16 07:33 | Outpatient (CLI) | payer MEDICARE, MEDICAID, SELFPAY ==
[2024-08-07 09:00] VITALS: BP 153/78; BMI 26.9
--- NOTE | 2024-10-16 07:44 | ECG_ITS ---
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 Interpretive Statements LEXISCAN SESTAMIBI STRESS TEST Procedure: At the baseline, the blood pressure was 154/74mmHg with a heart rate of 92bpm. The electrocardiogram showed normal sinus rhythm, normal axis with normal ST and T's. The Lexiscan was infused over a period of 20 seconds. A total of 0.4 mg of Lexiscan was infused. The stress phase was continued for a total of 5 minutes. Heart rate was at the end of stress phase was 102bpm and a blood pressure of 119/51 mmHg. The EKG at the peak infusion revealed normal sinus rhythm with no significant ST-T wave changes. Sestamibi was injected 20 seconds after the Lexiscan infusion. Blood pressure at the end of recovery phase was 124/57 mmHg with a heart rate of 101 bpm. Conclusion: 1. Normal EKG response to Lexiscan infusion 2. No Lexiscan induced chest pain or cardiac arrhythmia. 3. Normal blood pressure and heart rate response. 4. Sestamibi/sestamibi perfusion scan pending; see separate report. Electronically Signed On 10-31-2024 20:02:01 SENIOR DIRECTOR INSIGHT by Kashif Mejias M.D. [email or web address]
[2024-10-16 07:45] VITALS: BMI 18.3
--- NOTE | 2024-10-16 07:45 | NMCV_ITS ---
NM gómez perf SPECT r/s* [id number] Hussein Fitch Age: 69 Gender: M : 1955 Exam Date: 10/16/2024 08:22 Ordering Phys: Leonor Brito Technologist: CHRISTIN Mancilla Exam Location: [facility] Indications: CP STRESS TEST Please see separate stress test report in [facility] for full findings IMAGE PROTOCOL Rest/Stress 1 Lexiscan Day Radiopharmaceutical Dose (mCi) Administration Site Administered by Rest: Tc-99m 10.8 IV Daisy Nowak, CHIROPRACTIC DOCTOR Sestamibi Stress:Tc-99m 30.4 IV Daisy Rodriguezgle, CHIROPRACTIC DOCTOR Sestamibi Rest: 16-Oct-2024 60 Discovery 630 Stress: 16-Oct-2024 30 Discovery 630 0.4mg Lexiscan. Images obtained in supine and prone position. SPECT RESULTS Technical Quality: Good Raw Data Analysis: Normal Image Corrections: No attenuation or motion correction applied Summed Stress Score: 1 Summed Rest Score: 0 Summed Difference Score: 1 PERFUSION FINDINGS Small area of fixed perfusion defect noted in the apex of the left ventricle suggestive of apical thinning artifact. Overall this study is normal for ischemia. FUNCTIONAL RESULTS (calculated via Gated SPECT) Stress Image LV EF (%): 59 Stress EDV (mL):102 TID: 1.1 Stress ESV (mL):42 FUNCTIONAL FINDINGS: There is normal left ventricular systolic function. TID ratio is elevated which could be secondary to left ventricular hypertrophy. IMPRESSIONS Myocardial perfusion imaging is normal. Karina Nichols MD (Electronically Signed) Final Date: 17 October 2024 14:26 S
[2024-10-16] MEDS: regadenoson 0.4 Mg/5 ml Syringe IVP (09:15)
[2024-10-16 09:41] VITALS: BP 124/57; PULSE 102
== END 2024-10-16 07:34 | disposition home or self-care (01) ==
LOC: CDL 07:34
PROVIDERS: PCP Family Medicine; Visit Provider Nurse Practitioner Family
DX: I25.10 Atherosclerotic heart disease of native coronary artery without angina pectoris (principal); R06.02 Shortness of breath
CPT/HCPCS: 36415; 78452; 93017; 96374; A9500; J2785

== ENCOUNTER 2024-10-22 13:28 | Oncology outpatient (recurring) (ONCR) | payer MEDICARE, MEDICAID, SELFPAY ==
[2024-08-07 09:00] VITALS: BP 153/78; BMI 26.9
[2024-10-22 14:02] LABS: Basophils % 0.4 %; Eosinophils # 0.6 10^3/uL (0.0-0.8); Eosinophils % 8.1 %; Hematocrit 29.9 % (37-53); Lymphocytes # 1.1 10^3/uL (0.8-4.8); Lymphocytes % 15.1 %; Mean Corpuscular HGB Conc 33.1 g/dL (30-55); Mean Corpuscular Hemoglobin 31.1 pg (27-33); Mean Platelet Volume 8.6 fL (7.4-10.4); Monocytes # 0.4 10^3/uL (0.2-0.9); Monocytes % 5.7 %; Neutrophils # 5.02 10^3/uL (1.8-7.7); Neutrophils % 70.1 %; Nucleated Red Blood Cells % 0 %; Platelet Count 283 10^3/cmm (157-399); Red Blood Count 3.18 10^6/uL (3.85-5.65); Red Cell Distribution Width 12.1 % (12.1-15.1); White Blood Count 7.16 10^3/uL (3.29-11.43)
[2024-10-22 14:23] LABS: Alanine Aminotransferase 16 U/L (0-41); Albumin Level 3.9 g/dL (3.5-5.2); Alkaline Phosphatase 82 U/L (40-130); Anion Gap 14.8 (5-19); Aspartate Amino Transferase 13 U/L (0-40); Blood Urea Nitrogen 21 mg/dL (8-23); Calcium 9.3 mg/dL (8.5-10.5); Carbon Dioxide 23 mmol/L (22-29); Chloride 96 mmol/L (98-107); Creatinine Clr Calc Pharmacy 67.5246; Ferritin 454 ng/mL (30-400); Globulin 3.7 g/dL (1.3-4.6); Glomerular Filtration Rate 74.1 mL/min (90-130); Glucose 197 mg/dL (65-115); Iron 50 ug/dL (59-158); Osmolality Calculated 276 mOsm/kg (285-295); Percent Saturation 22.1 % (20-50); Potassium 4.8 mmol/L (3.5-5.1); Sodium 129 mmol/L (136-145); Total Bilirubin 0.2 mg/dL (0.15-1.2); Total Iron Binding Capacity 226 mcg/dl; Total Protein 7.6 g/dL (6.6-8.7); Unsaturated Iron Binding 176 ug/dL (112-347)
== END 2024-10-27 23:59 | disposition home or self-care (01) ==
PROVIDERS: Nurse Practitioner; PCP Family Medicine; Visit Provider Internal Medicine Medical Oncology
DX: D50.9 Iron deficiency anemia, unspecified; Z87.891 Personal history of nicotine dependence; Z79.899 Other long term (current) drug therapy; D64.9 Anemia, unspecified; I73.9 Peripheral vascular disease, unspecified; E87.1 Hypo-osmolality and hyponatremia; Z79.84 Long term (current) use of oral hypoglycemic drugs
CPT/HCPCS: 36415; 80053; 82728; 83540; 83550; 85025; 99214

== ENCOUNTER → 2024-11-06 13:40 | Outpatient (BNVA) | payer MEDICARE, MEDICAID, SELFPAY ==
[2024-08-07 09:00] VITALS: BP 153/78; BMI 26.9
== END ==
PROVIDERS: PCP Family Medicine; Visit Provider Podiatrist Foot & Ankle Surgery
DX: L84 Corns and callosities (principal); I73.9 Peripheral vascular disease, unspecified; E11.42 Type 2 diabetes mellitus with diabetic polyneuropathy; L60.3 Nail dystrophy; Z79.84 Long term (current) use of oral hypoglycemic drugs
CPT/HCPCS: 11055; 11721

== ENCOUNTER 2024-11-08 09:18 | Outpatient (CLI) | payer MEDICARE, MEDICAID, SELFPAY ==
[2024-08-07 09:00] VITALS: BP 153/78; BMI 26.9
--- NOTE | 2024-11-08 09:25 | CT_ITS ---
WS: [id number] LDCT LUNG CANCER SCREENING HISTORY: HX OF TOBACCO USE TECHNIQUE: Axial imaging performed from the apices to 1 cm below the costophrenic angles. Coronal and sagittal reformats are submitted with axial MIP series. All CT scans at [facility] use at least one of these dose optimization techniques: automated exposure control; mA and/or kV adjustment per patient size (includes targeted exams where dose is matched to clinical indication); or iterativ e reconstruction. DLP: 51.31 mGy.cm DIvol: Mean CTDIvol: 0.80 (mGy) COMPARISON: 08/31/2023, 06/28/2022 Diagnostic quality: Satisfactory Lungs: Interval significant change in appearance of the lungs since the prior study. Bilateral reticu lar nodular scattered opacifications, greatest throughout the RIGHT lung. Reticular nodular areas of opacification and consolidation are predominantly in the RIGHT upper and RIGHT lower lobes. There are a few similar opacifications in the LEFT lower lobe at the lung base. Otherwise mild interstitial saad ng disease. Pleural nodule LEFT apex. Developing bronchiectasis in the RIGHT upper and lower lobes, p redominantly associated with the increasing areas of opacification and consolidation. Heart: Normal size heart with no pericardial effusion.. Coronary artery calcifications. Other findings: Hilar regions are difficult to evaluate well without IV contrast. Inferior RIGHT para tracheal lymph node at 1.4 cm. No adrenal mass. Suprarenal aortic calcifications. Calcification upper pole LEFT kidney. No destructi ve bone lesions. CT/CT lung screening [id number] IMPRESSION: LUNG-RADS: 4B-Suspicious FOLLOW UP: 1 Month LDCT OTHER FINDINGS (S MODIFIER): None. 1. Significant new reticular nodular opacifications greatest in the RIGHT uppe r and lower lobes and also at the LEFT lung base. Favor this is probably an inf ectious etiology. Recommend treatment for an infectious or inflammatory process and then follow-up [address] with IV contrast. IV contrast will be impo rtant as central lymphadenopathy needs to be evaluated.
== END 2024-11-08 09:19 | disposition home or self-care (01) ==
PROVIDERS: PCP Family Medicine; Visit Provider Family Medicine
DX: Z12.2 Encounter for screening for malignant neoplasm of respiratory organs (principal); Z87.891 Personal history of nicotine dependence; R91.8 Other nonspecific abnormal finding of lung field; J47.9 Bronchiectasis, uncomplicated; I25.84 Coronary atherosclerosis due to calcified coronary lesion; I70.0 Atherosclerosis of aorta; N20.0 Calculus of kidney
CPT/HCPCS: 71271

== ENCOUNTER 2024-12-04 07:54 | Outpatient (CLI) | payer MEDICARE, MEDICAID, SELFPAY ==
[2024-08-07 09:00] VITALS: BP 153/78; BMI 26.9
--- NOTE | 2024-12-04 07:55 | CTR_ITS ---
PROCEDURE INFORMATION: Exam: CT Chest With Contrast; Diagnostic Exam date and time: 12/04/2024 8:28 AM Age: 69 years old Clinical indication: Abnormal findings; Abnormal radiologic exam of lung or chest; Additional info: Abnormal lung finding TECHNIQUE: Imaging protocol: Diagnostic computed tomography of the chest with contrast. Radiation optimization: All CT scans at this facility use at least one of these dose optimization techniques: automated exposure control; mA and/or kV adjustment per patient size (includes targeted exams where dose is matched to clinical indication); or iterative reconstruction. Contrast material: OMNI 350; Contrast volume: 100 ml; Contrast route: INTRAVENOUS (IV); COMPARISON: CT lung screening [id number] 11/08/2024 9:43 AM RADIATION DOSE METRICS: Total DLP (mGy-cm): 246.24 FINDINGS: Lungs: There is multifocal irregular reticulonodular opacity involving the right upper, right lower and middle lobes. Involvement of the right middle lobe is new and right upper and lower lobe opacities are decreased since 11/08/2024. Multifocal irregular reticulonodular opacity also involves the left lower lobe to a lesser extent, similar to findings on 11/08/2024. Numerous irregular discrete pulmonary nodules measure up to 14 mm diameter in the right lower lobe on axial series 4, image 32. Pleural spaces: There is no pleural effusion or pneumothorax. Heart: Heart size is normal. There is no pericardial effusion. The extrathoracic soft tissues are unremarkable. Lymph nodes: There are mildly prominent precarinal and right hilar lymph nodes measuring up to 1 cm short axis, likely reactive. Vasculature: There is mild aortic atherosclerotic disease. Bones/joints: There are multiple healed right posterior lower rib fractures. No acute osseous findings. Soft tissues: The extrathoracic soft tissues are unremarkable. CT/CT chest w con* [id number] IMPRESSION: Bilateral pulmonary reticulonodular opacities with irregular nodules measuring up to 14 mm. Findings are decreased in the right upper and lower lobes, stable in the left lower lobe and new in the right middle lobe since 11/08/2024. Findings are consistent with infection. Superimposed neoplasm cannot be excluded. For patients at low risk (minimal or absent history of smoking and of other known risk factors), recommend CT Chest at 3-6 months, then consider CT Chest at 18-24 months. For patients at high risk (history of smoking or of other known risk factors), recommend CT Chest at 3-6 months, then CT Chest at 18-24 months. (Reference: Ami) REFERENCES: Ami Ram, et al. Guidelines for Management of Incidental Pulmonary Nodules Detected on CT Images: From the Fleischner Society 2017. Radiology. 2017;284(1):228-243.
[2024-12-04] MEDS: iohexol 350 mg/mL 500 mL Btl (per mL) IV (08:35)
== END 2024-12-04 07:55 | disposition home or self-care (01) ==
LOC: RAD 07:54
PROVIDERS: PCP Family Medicine; Visit Provider Family Medicine
DX: R91.8 Other nonspecific abnormal finding of lung field (principal); R59.0 Localized enlarged lymph nodes; I70.0 Atherosclerosis of aorta; Z87.81 Personal history of (healed) traumatic fracture
CPT/HCPCS: 71260

== ENCOUNTER 2024-12-04 11:29 | Oncology outpatient (recurring) (ONCR) | payer MEDICARE, MEDICAID, SELFPAY ==
[2024-08-07 09:00] VITALS: BP 153/78; BMI 26.9
[2024-12-04 11:57] LABS: Basophils # 0.1 10^3/uL (0.0-0.1); Basophils % 0.5 %; Eosinophils # 0.8 10^3/uL (0.0-0.8); Eosinophils % 6.6 %; Hematocrit 32.5 % (37-53); Lymphocytes % 16.4 %; Mean Corpuscular HGB Conc 32.3 g/dL (30-55); Mean Corpuscular Hemoglobin 29.9 pg (27-33); Mean Corpuscular Volume 92.6 fl (82-101); Monocytes # 0.5 10^3/uL (0.2-0.9); Monocytes % 4.5 %; Neutrophils % 70.7 %; Nucleated Red Blood Cells % 0 %; Platelet Count 348 10^3/cmm (157-399); Red Blood Count 3.51 10^6/uL (3.85-5.65); Red Cell Distribution Width 13.4 % (12.1-15.1); White Blood Count 11.87 10^3/uL (3.29-11.43)
[2024-12-04 12:20] LABS: Alanine Aminotransferase 28 U/L (0-41); Albumin Level 4.1 g/dL (3.5-5.2); Alkaline Phosphatase 114 U/L (40-130); Anion Gap 15.9 (5-19); Aspartate Amino Transferase 15 U/L (0-40); Blood Urea Nitrogen 21 mg/dL (8-23); Calcium 9.6 mg/dL (8.5-10.5); Carbon Dioxide 25 mmol/L (22-29); Chloride 97 mmol/L (98-107); Ferritin 489 ng/mL (30-400); Globulin 3.8 g/dL (1.3-4.6); Glomerular Filtration Rate 83.7 mL/min (90-130); Glucose 241 mg/dL (65-115); Iron 36 ug/dL (59-158); Osmolality Calculated 287 mOsm/kg (285-295); Percent Saturation 13.2 % (20-50); Potassium 4.9 mmol/L (3.5-5.1); Sodium 133 mmol/L (136-145); Total Bilirubin 0.2 mg/dL (0.15-1.2); Total Iron Binding Capacity 271 mcg/dl; Total Protein 7.9 g/dL (6.6-8.7); Unsaturated Iron Binding 235 ug/dL (112-347)
[2024-12-04 12:34] LABS: Vitamin B12 915 pg/mL (232-1245)
[2024-12-04 12:59] LABS: Folate Level 19.8 ng/mL (4.5-32.2)
== END 2024-12-28 23:59 | disposition home or self-care (01) ==
PROVIDERS: Internal Medicine Medical Oncology; PCP Family Medicine; Visit Provider Internal Medicine Medical Oncology
DX: D50.9 Iron deficiency anemia, unspecified (principal); D64.9 Anemia, unspecified; E11.42 Type 2 diabetes mellitus with diabetic polyneuropathy; Z79.84 Long term (current) use of oral hypoglycemic drugs
CPT/HCPCS: 36415; 80053; 82607; 82728; 82746; 83540; 83550; 85025; 99214

== ENCOUNTER → 2024-12-19 14:33 | Outpatient (BNVA) | payer MEDICARE, SELFPAY ==
[2024-08-07 09:00] VITALS: BP 153/78; BMI 26.9
== END ==
PROVIDERS: PCP Family Medicine; Visit Provider Internal Medicine
DX: E11.51 Type 2 diabetes mellitus with diabetic peripheral angiopathy without gangrene (principal); E11.621 Type 2 diabetes mellitus with foot ulcer; L97.519 Non-pressure chronic ulcer of other part of right foot with unspecified severity; I25.10 Atherosclerotic heart disease of native coronary artery without angina pectoris; Z72.0 Tobacco use; Z79.84 Long term (current) use of oral hypoglycemic drugs; I10 Essential (primary) hypertension
CPT/HCPCS: 99214

== ENCOUNTER 2025-01-02 06:41 | Outpatient (CLI) | payer MEDICARE, MEDICAID, SELFPAY ==
[2024-08-07 09:00] VITALS: BP 153/78; BMI 26.9
--- NOTE | 2025-01-02 06:49 | USCV_ITS ---
Hussein Fitch Age: 69 Gender: M : 1955 Exam Date: 01/02/2025 07:01 Ordering Phys: Diego Glass MD Technologist: Exam Location: [facility] Indication: POWELL BP: 120 / 70 HR: 90 Rhythm: Sinus Technical Quality: Adequate MEASUREMENTS (Male / Female) Normal Values 2D ECHO LV Diastolic Diameter PLAX 4.5 cm 4.2 - 5.9 / 3.9 - 5.3 cm IVS Diastolic Thickness 1.3 cm 0.6 - 1.0 / 0.6 - 0.9 cm IVS Systolic Thickness 2.2 cm LVPW Diastolic Thickness 1.1 cm 0.6 - 1.0 / 0.6 - 0.9 cm LVPW Systolic Thickness 1.6 cm LVOT Diameter 2.0 cm LV Ejection Fraction 2D Teich 74.5 % LV Ejection Fraction MOD 4C 69.3 % LV Ejection Fraction MOD 2C 69.0 % LV Ejection Fraction 2C AL 69.4 % LA Diameter 3.2 cm RA Systolic Volume 4C AL 31.4 ml RA Systolic Volume 4C MOD 32.5 ml LA Sys Volume AL 42.5 cm cubed LA Sys Volume Index AL 24.5 cm cubed/m squared IVC Diameter 2.2 cm M-MODE LA Ao Ratio MM 1.0 AV Cusp Separation MM 2.0 cm DOPPLER AV Peak Velocity 116.0 cm/s LVOT Peak Velocity 106.0 cm/s AV Area Cont Eq vti 2.7 cm squared AV Area Cont Eq pk 2.9 cm squared MV Peak Velocity 115.0 cm/s MV Area PHT 7.3 cm squared Mitral E to A Ratio 1.1 TV Peak Velocity 198.0 cm/s TR Peak Velocity 267.0 cm/s TR Peak Gradient 28.5 mmHg TV Peak E Velocity 128.0 cm/s PV Peak Velocity 111.0 cm/s FINDINGS Left Ventricle Left ventricle is normal in size. LV systolic function normal with EF of 60-65%. No regional wall motion abnormalities are seen. Right Ventricle Normal in size and function Right Atrium Normal in size Left Atrium Normal in size Mitral Valve Structurally normal mitral valve. Trace mitral regurgitation. Aortic Valve Structurally normal aortic valve. No significant stenosis or regurgitation. Tricuspid Valve Mild tricuspid regurgitation. Pulmonary artery systolic pressure is normal. Pulmonic Valve Not well visualized Pericardium Normal Aorta Normal in size IVC Appears to be dilated CONCLUSIONS LV systolic function is normal with EF of 60-65% Trace mitral regurgitation Mild tricuspid regurgitation IVC appears to be dilated Kashif Mejias MD (Electronically Signed) Final Date: 02 January 2025 10:21 S
== END 2025-01-02 06:42 | disposition home or self-care (01) ==
LOC: RAD 06:43
PROVIDERS: PCP Family Medicine; Visit Provider Family Medicine
DX: R06.09 Other forms of dyspnea (principal); I07.1 Rheumatic tricuspid insufficiency
CPT/HCPCS: 93306

== ENCOUNTER → 2025-01-23 09:37 | Outpatient (BNVA) | payer MEDICARE, MEDICAID, SELFPAY ==
[2024-08-07 09:00] VITALS: BP 153/78; BMI 26.9
== END ==
PROVIDERS: PCP Family Medicine; Visit Provider Podiatrist Foot & Ankle Surgery
DX: E11.42 Type 2 diabetes mellitus with diabetic polyneuropathy (principal); L60.3 Nail dystrophy; L84 Corns and callosities; I73.9 Peripheral vascular disease, unspecified; Z79.84 Long term (current) use of oral hypoglycemic drugs
CPT/HCPCS: 11056; 11721

== ENCOUNTER 2025-02-11 15:00 | Oncology outpatient (recurring) (ONCR) | payer MEDICARE, MEDICAID, SELFPAY ==
[2024-08-07 09:00] VITALS: BP 153/78; BMI 26.9
[2025-02-05 10:56] LABS: Basophils # 0.1 10^3/uL (0.0-0.1); Basophils % 0.6 %; Eosinophils # 0.7 10^3/uL (0.0-0.8); Eosinophils % 7.9 %; Hematocrit 28.4 % (37-53); Lymphocytes # 1.2 10^3/uL (0.8-4.8); Lymphocytes % 13.3 %; Mean Corpuscular Hemoglobin 27.9 pg (27-33); Mean Corpuscular Volume 90.2 fl (82-101); Mean Platelet Volume 8.8 fL (7.4-10.4); Monocytes # 0.5 10^3/uL (0.2-0.9); Monocytes % 5.1 %; Neutrophils # 6.36 10^3/uL (1.8-7.7); Neutrophils % 71.3 %; Nucleated Red Blood Cells % 0 %; Platelet Count 437 10^3/cmm (157-399); Red Blood Count 3.15 10^6/uL (3.85-5.65); Red Cell Distribution Width 14.5 % (12.1-15.1)
[2025-02-05 11:19] LABS: Alanine Aminotransferase 12 U/L (0-41); Albumin Level 3.9 g/dL (3.5-5.2); Alkaline Phosphatase 111 U/L (40-130); Anion Gap 15.8 (5-19); Aspartate Amino Transferase 10 U/L (0-40); Blood Urea Nitrogen 32 mg/dL (8-23); Calcium 9.1 mg/dL (8.5-10.5); Carbon Dioxide 24 mmol/L (22-29); Chloride 99 mmol/L (98-107); Ferritin 321 ng/mL (30-400); Globulin 3.5 g/dL (1.3-4.6); Glomerular Filtration Rate 83.4 mL/min (90-130); Glucose 146 mg/dL (65-115); Iron 49 ug/dL (59-158); Osmolality Calculated 286 mOsm/kg (285-295); Percent Saturation 17.3 % (20-50); Potassium 5.8 mmol/L (3.5-5.1); Sodium 133 mmol/L (136-145); Total Bilirubin 0.2 mg/dL (0.15-1.2); Total Iron Binding Capacity 282 mcg/dl; Total Protein 7.4 g/dL (6.6-8.7); Unsaturated Iron Binding 233 ug/dL (112-347)
[2025-02-11 14:30] LABS: Basophils # 0.1 10^3/uL (0.0-0.1); Basophils % 0.8 %; Eosinophils # 1.1 10^3/uL (0.0-0.8); Eosinophils % 12.9 %; Hematocrit 29.3 % (37-53); Lymphocytes # 1.8 10^3/uL (0.8-4.8); Lymphocytes % 21.3 %; Mean Corpuscular HGB Conc 31.4 g/dL (30-55); Mean Corpuscular Hemoglobin 27.8 pg (27-33); Mean Corpuscular Volume 88.5 fl (82-101); Mean Platelet Volume 8.4 fL (7.4-10.4); Monocytes # 0.6 10^3/uL (0.2-0.9); Monocytes % 7.7 %; Neutrophils # 4.68 10^3/uL (1.8-7.7); Neutrophils % 56.1 %; Nucleated Red Blood Cells % 0 %; Platelet Count 379 10^3/cmm (157-399); Red Blood Count 3.31 10^6/uL (3.85-5.65); Red Cell Distribution Width 14.8 % (12.1-15.1); White Blood Count 8.35 10^3/uL (3.29-11.43)
[2025-02-11 14:33] LABS: Reticulocyte % 2.1 % (0.5-2.0)
[2025-02-11 15:09] LABS: Alanine Aminotransferase 13 U/L (0-41); Albumin Level 4.1 g/dL (3.5-5.2); Alkaline Phosphatase 111 U/L (40-130); Anion Gap 18.4 (5-19); Aspartate Amino Transferase 13 U/L (0-40); Blood Urea Nitrogen 33 mg/dL (8-23); Calcium 9.2 mg/dL (8.5-10.5); Carbon Dioxide 26 mmol/L (22-29); Chloride 96 mmol/L (98-107); Creatinine Clr Calc Pharmacy 68.6206; Globulin 3.3 g/dL (1.3-4.6); Glomerular Filtration Rate 73.9 mL/min (90-130); Glucose 167 mg/dL (65-115); Osmolality Calculated 291 mOsm/kg (285-295); Potassium 5.4 mmol/L (3.5-5.1); Sodium 135 mmol/L (136-145); Total Bilirubin 0.2 mg/dL (0.15-1.2); Total Protein 7.4 g/dL (6.6-8.7); Vitamin B12 1344 pg/mL (232-1245)
[2025-02-11 16:30] LABS: Folate Level > 20.0 ng/mL (4.5-32.2)
== END 2025-02-25 23:59 | disposition home or self-care (01) ==
PROVIDERS: Nurse Practitioner; PCP Family Medicine; Visit Provider Internal Medicine Medical Oncology
DX: Z53.9 Procedure and treatment not carried out, unspecified reason; D50.9 Iron deficiency anemia, unspecified; D64.9 Anemia, unspecified; J18.9 Pneumonia, unspecified organism; I73.9 Peripheral vascular disease, unspecified; E87.1 Hypo-osmolality and hyponatremia; Z87.891 Personal history of nicotine dependence
CPT/HCPCS: 36415; 80053; 82607; 82728; 82746; 83010; 83540; 83550; 85025; 85045; 86850; 86900; 99214

== ENCOUNTER 2025-03-01 09:49 | Oncology outpatient (recurring) (ONCR) | payer MEDICARE, MEDICAID, SELFPAY ==
[2024-08-07 09:00] VITALS: BP 153/78; BMI 26.9
--- NOTE | 2025-03-01 09:54 | CT_ITS ---
WS: [id number] CT chest w con* [id number] HISTORY: MULTIPLE LUNG NODULES TECHNIQUE: Axial imaging performed through the thorax. Coronal and sagittal reformats are submitted. All CT scans at [facility] use at least one of these dose optimization techniques: automated exposure control; mA and/or kV adjustment per patient size (includes targeted exams where dose is matched to clinical indication); or iterative reconstruction. CONTRAST: Omnipaque 350; 100 mL IV. DLP: 454.96 mGy.cm COMPARISON: Chest CT 12/04/2024 and 11/08/2024 Lungs and central airway: Persistent biapical pleural thickening, fibrosis and nodularity. Scattered ill-defined reticular nodular opacifications throughout the RIGHT upper, RIGHT middle and lower lobes. More focal area of dense consolidation in the RIGHT middle lobe. RIGHT middle lobe consolidation has progressed and may be superimposed atelectasis. Some of the opacifications have improved while others have progressed. Most significant progression in the RIGHT middle lobe. Improvement in some of the opacifications in the RIGHT upper and RIGHT lower lobes. Tree-in-bud airspace disease at the LEFT lung base has also improved. Pleura: Normal. No pleural effusion. Heart and pericardium: Normal size heart with no pericardial effusion. Mediastinum and david: RIGHT hilar lymph node 1.5 cm. Precarinal and subcarinal lymph nodes enlarged up to 1.7 cm. RIGHT paratracheal lymph nodes have slightly progressed. Vessels: Moderate atherosclerosis aorta. Normal size pulmonary artery. Chest wall and lower neck: No soft tissue masses. Upper abdomen: Small hiatal hernia. No adrenal mass. Osseous structures: No destructive process. CT/CT chest w con* [id number] IMPRESSION: 1. Continued progression of RIGHT middle lobe areas of consolidation and opaci fication. 2. Slight improvement in the reticular nodular opacifications and nodules in t he RIGHT upper and RIGHT lower lobe since 12/04/2024. 3. Resolved tree-in-bud airspace disease at the LEFT lung base. 4. Slight progression of the mediastinal and hilar lymphadenopathy. Favor thes e are reactive lymph nodes. 5. No pleural or pericardial effusions. Recommendation: Consider follow-up bronchoscopy due to the persistent areas of opacification which do not demonstrate linear, continual improvement. If bronch oscopy is not performed consider additional follow-up chest CT in 3 months with continued treatment. Pulmonary findings are still thought to be most likely in fectious or inflammatory. Consider atypical infection such as MAC.
[2025-03-01] MEDS: iohexol 350 mg/mL 500 mL Btl (per mL) IV (10:18)
== END 2025-03-27 23:59 | disposition home or self-care (01) ==
LOC: RAD 09:51 → ONCMED 09:52 → RAD 09:53 → ONCMED 03-04 09:13
PROVIDERS: PCP Family Medicine; Visit Provider Family Medicine
DX: R91.8 Other nonspecific abnormal finding of lung field (principal); R59.1 Generalized enlarged lymph nodes
CPT/HCPCS: 71260

== ENCOUNTER → 2025-03-19 09:37 | Outpatient (BNVA) | payer MEDICARE, OTHER, SELFPAY ==
[2024-08-07 09:00] VITALS: BP 153/78; BMI 26.9
== END ==
PROVIDERS: PCP Family Medicine; Visit Provider Nurse Practitioner Psychiatric/Mental Health
DX: Z79.899 Other long term (current) drug therapy (principal)
CPT/HCPCS: 80061; 83036

== ENCOUNTER 2025-04-05 18:05 | Observation (INO) | payer MEDICARE, MEDICAID, SELFPAY ==
[2025-03-20 15:38] VITALS: BP 132/74; BMI 18.8
[2025-04-05] VITALS (8 sets, daily range): BP systolic 83–131; BP diastolic 42–64; PULSE 69–89; RESP 16–19; TEMP 36.4; O2SAT 92–98; BMI 18.1; BMI 18.6
--- NOTE | 2025-04-05 18:25 | XRR_ITS ---
PROCEDURE INFORMATION: Exam: XR Chest Exam date and time: 04/05/2025 6:58 PM Age: 70 years old Clinical indication: Shortness of breath; Prior surgery; Surgery date: 6+ months; Surgery type: Coronary stents; SOB with hypotension and unintentional weight loss TECHNIQUE: Imaging protocol: Radiologic exam of the chest. Views: 1 view. COMPARISON: CT chest w con* [id number] 03/01/2025 10:08 AM FINDINGS: Lungs: Hyperinflated lungs with scattered scarring. No consolidation. Pleural spaces: Unremarkable. No pleural effusion. No pneumothorax. Heart/Mediastinum: Unremarkable. No cardiomegaly. Bones/joints: Unremarkable. XR/XR chest 1V portable [id number] IMPRESSION: No acute findings.
[2025-04-05 18:37] LABS: Basophils % 0.2 %; Eosinophils % 0.3 %; Hematocrit 24.9 % (37-53); Lymphocytes # 1.3 10^3/uL (0.8-4.8); Lymphocytes % 12.8 %; Mean Corpuscular HGB Conc 31.3 g/dL (30-55); Mean Corpuscular Hemoglobin 27.3 pg (27-33); Mean Corpuscular Volume 87.1 fl (82-101); Mean Platelet Volume 8.8 fL (7.4-10.4); Monocytes # 0.7 10^3/uL (0.2-0.9); Monocytes % 6.9 %; Neutrophils # 8.11 10^3/uL (1.8-7.7); Neutrophils % 79.3 %; Nucleated Red Blood Cells % 0 %; Platelet Count 273 10^3/cmm (157-399); Red Blood Count 2.86 10^6/uL (3.85-5.65); Red Cell Distribution Width 16.6 % (12.1-15.1); White Blood Count 10.23 10^3/uL (3.29-11.43)
[2025-04-05] MEDS: sodium chloride 0.9% 1,000 ML 999 ML IV ×2 (18:43→19:50)
[2025-04-05 18:54] LABS: Alanine Aminotransferase 20 U/L (0-41); Albumin Level 3.5 g/dL (3.5-5.2); Alkaline Phosphatase 88 U/L (40-130); Anion Gap 22.5 (5-19); Aspartate Amino Transferase 24 U/L (0-40); Blood Urea Nitrogen 60 mg/dL (8-23); Calcium 8.2 mg/dL (8.5-10.5); Carbon Dioxide 14 mmol/L (22-29); Chloride 97 mmol/L (98-107); Creatinine Clr Calc Pharmacy 19.7686; Globulin 3.3 g/dL (1.3-4.6); Glomerular Filtration Rate 21.6 mL/min (90-130); Glucose 69 mg/dL (65-115); Lipase 17 U/L (13-60); Magnesium 1.6 mg/dL (1.7-2.3); Osmolality Calculated 281 mOsm/kg (285-295); Potassium 5.5 mmol/L (3.5-5.1); Sodium 128 mmol/L (136-145); Total Bilirubin 0.2 mg/dL (0.15-1.2); Total Protein 6.8 g/dL (6.6-8.7)
--- NOTE | 2025-04-05 19:11 | CTR_ITS ---
PROCEDURE INFORMATION: Exam: CT Chest Without Contrast; Diagnostic Exam date and time: 04/05/2025 7:17 PM Age: 70 years old Clinical indication: Other: Hypotensive. Unintentional weight loss; Prior surgery; Surgery date: 6+ months; Surgery type: Coronary stents; C/O nausea with unintentional 20lb weight loss over the last two weeks. Patient hypotensive. History of pulmonary nodules. ; Additional info: Unexplained weight loss TECHNIQUE: Imaging protocol: Diagnostic computed tomography of the chest without contrast. Radiation optimization: All CT scans at this facility use at least one of these dose optimization techniques: automated exposure control; mA and/or kV adjustment per patient size (includes targeted exams where dose is matched to clinical indication); or iterative reconstruction. COMPARISON: CT chest w con* [id number] 03/01/2025 10:08 AM RADIATION DOSE METRICS: Total DLP (mGy-cm): 443.95 FINDINGS: Lungs: Scattered scarring in both lungs. Several scattered ground-glass opacities centered in the terminal aspects of the bronchi in the left lower lobe and to a lesser extent the right upper lobe right lower lobe. No masses. Pleural spaces: Unremarkable. No pneumothorax. No pleural effusion. Heart: No cardiomegaly. Trace pericardial fluid. Lymph nodes: Unremarkable. No enlarged lymph nodes. Vasculature: Unremarkable. No aortic aneurysm. Bones/joints: Unremarkable. No acute fracture. Soft tissues: Unremarkable. PROCEDURE INFORMATION: Exam: CT Abdomen And Pelvis Without Contrast Exam date and time: 04/05/2025 7:17 PM Age: 70 years old Clinical indication: Other: Hypotensive. Unintentional weight loss; Prior surgery; Surgery date: 6+ months; Surgery type: Coronary stents; C/O nausea with unintentional 20lb weight loss over the last two weeks. Patient hypotensive. History of pulmonary nodules. ; Additional info: Unexplained weight loss TECHNIQUE: Imaging protocol: Computed tomography of the abdomen and pelvis without contrast. Radiation optimization: All CT scans at this facility use at least one of these dose optimization techniques: automated exposure control; mA and/or kV adjustment per patient size (includes targeted exams where dose is matched to clinical indication); or iterative reconstruction. COMPARISON: CT chest w con* [id number] 03/01/2025 10:08 AM RADIATION DOSE METRICS: Total DLP (mGy-cm): 443.95 FINDINGS: Liver: Normal. No evident mass. Gallbladder and biliary ducts: Normal. No calcified stones. No ductal dilation. Pancreas: Normal. No ductal dilation. Spleen: Normal. No splenomegaly. Adrenal glands: Normal. No mass. Kidneys and ureters: Renal vascular calcifications seen bilaterally. No hydronephrosis. Stomach and bowel: Mild circumferential wall thickening of the rectum. No obstruction. No mucosal thickening. Appendix: No evidence of appendicitis. Intraperitoneal space: Unremarkable. No free air. No significant fluid collection. Vasculature: Unremarkable. No abdominal aortic aneurysm. Lymph nodes: Unremarkable. No enlarged lymph nodes. Urinary bladder: Unremarkable as visualized. Reproductive: Unremarkable as visualized. Bones/joints: No acute fracture. Soft tissues: Unremarkable. CT/[place] [id number] IMPRESSION: 1. Several scattered ground-glass opacities predominantly centered in the right lower lobe most suggestive of small airway infectious or inflammatory process. 2. No findings to suggest malignancy in the chest. IMPRESSION: 1. Mild circumferential wall thickening rectum suggestive of proctitis. 2. No clear findings of malignancy in the abdomen/pelvis.
[2025-04-05 20:00] LABS: Lactic Sepsis W/Reflex 0.9 mmol/L (0.5-2.2)
--- NOTE | 2025-04-05 20:17 | PM.HP ---
Providers/Chief Complaint Primary Care Provider: Diego Glass MD Chief Complaint: rapid weight loss, BP low confused UC sent History of Present Illness Hussein Fitch is a 70 year old male with a past medical history significant for GERD, type 2 diabetes mellitus, peripheral neuropathy, peripheral arterial disease, COPD, dyslipidemia, hypertension, schizoaffective disorder, benign prostatic hypertrophy, anemia, multiple other comorbidities who presents to the emergency department with intractable nausea and vomiting. Patient reports inability to hold down liquids or solids for the past 2 weeks. Reports abdominal discomfort but no blas abdominal pains. Denies any diarrhea as he states he is not been able to hold anything down. Endorses associated fevers and chills. Oral intake worsens symptoms. Reports associated unintentional 20 pound weight loss since symptoms began. Denies other alleviating or aggravating factors. Denies known sick contacts. He endorses a chronic cough. He has a history of abnormal pulmonary imaging for which his PCP is managing. In the emergency department, labs revealed hyponatremia, hypochloremia, metabolic acidosis, azotemia, elevated creatinine, and hemoglobin 7.8. CT of chest abdomen pelvis showed several scattered groundglass opacities predominantly centered in the right lower lobe suggestive of small airway infectious or inflammatory process; mild circumferential wall thickening of the rectum suggestive of proctocolitis. Review of Systems Narrative: A complete review of systems was obtained and is negative except as stated in HPI. Medications/Allergies Home Medications ?Medication ?Instructions ?Recorded ?Confirmed ?Last Taken ?Type ascorbic acid (vitamin C) 500 mg 500 mg PO DAILY 12/11/19 03/12/25 01/25/24 History capsule finasteride 5 mg tablet 5 mg PO QAM 12/11/19 03/12/25 02/24/24 History gabapentin 300 mg capsule 300 mg PO TID 12/11/19 03/12/25 02/24/24 History tamsulosin 0.4 mg capsule 0.4 mg PO BEDTIME 12/11/19 03/12/25 02/23/24 History docusate sodium 100 mg tablet 100 mg PO BID PRN Constipation 06/29/21 03/12/25 06/16/23 17:00 History ferrous sulfate 325 mg (65 mg 325 mg PO QAM 07/01/22 03/12/25 02/24/24 History iron) tablet metformin 1,000 mg tablet 1,000 mg PO BID 06/13/23 03/12/25 02/24/24 History budesonide 160 mcg-glycopyr 9 2 inh inhalation BID 12/26/23 03/12/25 02/24/24 History mcg-formot 4.8 mcg/actuation HFA inhaler (Breztri Aerosphere) cyanocobalamin (vitamin B-12) 1,000 mcg IM Q30D 01/24/24 03/12/25 Unknown History 1,000 mcg/mL injection solution sulfamethoxazole 800 1 tab PO Q12H 7 days #14 tabs 02/16/24 03/12/25 02/22/24 Rx mg-trimethoprim 160 mg tablet finished per (Bactrim DS) family aspirin 81 mg tablet,delayed 81 mg PO QAM 02/24/24 03/12/25 02/24/24 History release clopidogrel 75 mg tablet 75 mg PO QAM 02/24/24 03/12/25 02/24/24 History furosemide 20 mg tablet (Lasix) 20 mg PO QAM 02/24/24 03/12/25 02/24/24 History pravastatin 80 mg tablet 80 mg PO BEDTIME 02/24/24 03/12/25 02/23/24 History prednisolone acetate 1 % eye 1 drp ophthalmic (eye) QID 02/24/24 03/12/25 02/24/24 History drops,suspension sucralfate 100 mg/mL oral 10 ml PO BID 02/24/24 03/12/25 3 Days Ago History suspension ~02/21/24 finished nitroglycerin 0.4 mg sublingual See Rx Instructions .Route 03/13/24 03/12/25 Unknown Rx tablet .COMPLEX #25 tabs pentoxifylline 400 mg 400 mg PO TID #90 tabs 06/28/24 03/12/25 Unknown Rx tablet,extended release buspirone 30 mg tablet 30 mg PO BID #180 tabs 08/14/24 03/12/25 Unknown Rx mirtazapine 30 mg tablet 30 mg PO BEDTIME #90 tabs 08/14/24 03/12/25 Unknown Rx dapagliflozin propanediol 10 mg mg PO 10/22/24 03/12/25 Unknown History tablet (Farxiga) Diabetic shoes with 3 sets of #1 ea 11/06/24 03/12/25 Unknown Rx insoles mupirocin 2 % topical ointment 1 applic topical BID 2 weeks #22 11/06/24 03/12/25 Unknown Rx grams aripiprazole 10 mg tablet (Abilify) 10 mg PO .morning #90 tabs 12/03/24 03/12/25 Unknown Rx metoclopramide HCl 5 mg tablet mg PO 12/04/24 03/12/25 Unknown History Allergies Allergy/AdvReac Type Severity Reaction Status Date / Time No Known Allergies Allergy Verified 03/12/25 13:07 PFSH Acute PFSH: Medical History Proctocolitis History of MRSA infection GERD (gastroesophageal reflux disease) Peripheral neuropathy Type 2 diabetes mellitus Psychiatric care Anemia Peripheral arterial disease COPD (chronic obstructive pulmonary disease) Dyslipidemia Essential hypertension Nicotine dependence, cigarettes, uncomplicated Schizoaffective disorder, depressive type BPH with obstruction/lower urinary tract symptoms Surgical History History of coronary artery stent placement History of eye surgery x3 History of surgery on arm Multiple procedures on the right arm related to MRSA infection H/O foot surgery x 2 for diabetic foot ulcer H/O colonoscopy yrs ago H/O esophagogastroduodenoscopy Status post femoral-popliteal bypass surgery Left femoropopliteal bypass in 2012 with redo bypass in 2013 S/P angioplasty Angioplasty with stent placement to the right leg Family History Family/Other Stroke Cancer Diabetes Hypertension Unknown Cancer Father , at age 59 Alcoholic Mother Lung disease Stroke Denies family history of Anesthesia complication Bleeding disorder Social History Smoking and tobacco/nicotine status: former use of tobacco/nicotine (NONE FOR 4 MONTHS) Alcohol intake: former Substance/Drug Use: never Household members: other Details: room mate Marital status: Current occupational status: disabled Current gender identity: Male Vitals/I&O/Wt Last Vital Signs Temp 97.6 F 04/05/25 18:07 Pulse 79 04/05/25 19:53 Resp 18 04/05/25 19:53 BP 95/43 04/05/25 19:53 Pulse Ox 92 04/05/25 19:53 O2 Del Method Room Air 04/05/25 19:53 04/05/25 04/05/25 04/05/25 06:59 14:59 22:59 Intake Total 1000 / 1000 Balance 1000 / 1000 Weight last 48 hrs Weight 58.967 kg Physical Exam Narrative: General: Patient is awake. Appears ill. Head: Normocephalic. Atraumatic. EOM intact. Dry mucous membranes. Neck: No JVD. Cardiovascular: RRR. No gallops. No murmurs. No peripheral edema. Lungs: Cough present. Faint right basilar rhonchi. No wheezing or crackles. Skin: No jaundice. No rashes. Abdomen: Normal bowel sounds, abdomen soft and nontender. Genito Urinary: Genital exam not performed since complaints not related. Rectal: Rectal exam not performed since no symptoms indicated blood loss. Extremities: No cyanosis or clubbing. Musculoskeletal: No swollen or erythematous joints. Neurological: Moves all 4 extremities. No myoclonus. Data 04/05/25 18:23 04/05/25 18:23 A&P Assessment and plan (1) Schizoaffective disorder, depressive type: (2) Metabolic acidosis: (3) Dehydration: (4) RUFINA (acute kidney injury): (5) Pneumonia: (6) Nausea and vomiting: Plan Intractable nausea and vomiting Acute kidney injury High anion gap metabolic acidosis Hypovolemic hyponatremia Unintentional weight loss Dehydration - Start bicarb drip - Strict I's and O's - Renally dose medications - Antiemetics as needed - Start IV PPI - Clear liquid diet, advance as tolerated Pneumonia - Suspected community-acquired bacterial versus aspiration - Check procalcitonin another inflammatory markers - Start broad-spectrum antibiotics with cefepime and vancomycin, history of MRSA noted - Aspiration precautions - Supportive care Proctitis - Zosyn as above - Monitor consistency of bowel movement, consider stool studies if clinically appropriate Type 2 diabetes mellitus - Hold oral medications - Low-dose sliding scale insulin correction COPD without exacerbation - Breathing treatments as needed Peripheral arterial disease - Continue antiplatelet agents Schizoaffective disorder - Continue home medications Benign prostatic hypertrophy - Continue Flomax History of normocytic anemia - Continue outpatient follow-up DVT ppx: Heparin PDMP PDMP Reviewed: Not Reviewed Attestations Medical Necessity Statement*: Patient presents with intractable nausea and vomiting, found to have pneumonia and proctitis resulting in acute kidney injury, hypovolemic hyponatremia, multiple other derangements with expected hospitalization not to cross 2 midnights for IV fluids, IV antibiotics, and supportive care Coding Level of Care Code Acute Code for g Fwd Diagnoses Schizoaffective disorder, depressive type F25.1 Metabolic acidosis E87.20 Dehydration E86.0 RUFINA (acute kidney injury) N17.9 Pneumonia J18.9 Nausea and vomiting R11.2
--- NOTE | 2025-04-05 20:37 | W.ED.GENADLT ---
HPI - General Adult General: Chief complaint: General Medical Stated complaint: rapid weight loss, BP low confused UC sent Time Seen by Provider: 04/05/25 18:16 History of Present Illness: Patient presents with a 2 to 3-week history of vomiting and decreased p.o. intake. States that every time he eats he throws up. He states he is able to tolerate just a few things like oatmeal. He states he has had a 20 pound weight loss in the last 2 weeks. He does have a long history of smoking over 50 years but quit 8 months ago. He denies any cough or fever. He denies any abdominal or chest pain. Related Data Home Medications ?Medication ?Instructions ?Recorded ?Confirmed ascorbic acid (vitamin C) 500 mg 500 mg PO DAILY 12/11/19 03/12/25 capsule finasteride 5 mg tablet 5 mg PO QAM 12/11/19 03/12/25 gabapentin 300 mg capsule 300 mg PO TID 12/11/19 03/12/25 tamsulosin 0.4 mg capsule 0.4 mg PO BEDTIME 12/11/19 03/12/25 docusate sodium 100 mg tablet 100 mg PO BID PRN Constipation 06/29/21 03/12/25 ferrous sulfate 325 mg (65 mg 325 mg PO QAM 07/01/22 03/12/25 iron) tablet metformin 1,000 mg tablet 1,000 mg PO BID 06/13/23 03/12/25 budesonide 160 mcg-glycopyr 9 2 inh inhalation BID 12/26/23 03/12/25 mcg-formot 4.8 mcg/actuation HFA inhaler (Breztri Aerosphere) cyanocobalamin (vitamin B-12) 1,000 mcg IM Q30D 01/24/24 03/12/25 1,000 mcg/mL injection solution aspirin 81 mg tablet,delayed 81 mg PO QAM 02/24/24 03/12/25 release clopidogrel 75 mg tablet 75 mg PO QAM 02/24/24 03/12/25 furosemide 20 mg tablet (Lasix) 20 mg PO QAM 02/24/24 03/12/25 pravastatin 80 mg tablet 80 mg PO BEDTIME 02/24/24 03/12/25 prednisolone acetate 1 % eye 1 drp ophthalmic (eye) QID 03/29/24 04/15/25 drops,suspension sucralfate 100 mg/mL oral 10 ml PO BID 02/24/24 03/12/25 suspension dapagliflozin propanediol 10 mg mg PO 10/22/24 03/12/25 tablet (Farxiga) metoclopramide HCl 5 mg tablet mg PO 12/04/24 03/12/25 Previous Rx's ?Medication ?Instructions ?Recorded sulfamethoxazole 800 1 tab PO Q12H 7 days #14 tabs 02/16/24 mg-trimethoprim 160 mg tablet (Bactrim DS) nitroglycerin 0.4 mg sublingual See Rx Instructions .Route 03/13/24 tablet .COMPLEX #25 tabs pentoxifylline 400 mg 400 mg PO TID #90 tabs 06/28/24 tablet,extended release buspirone 30 mg tablet 30 mg PO BID #180 tabs 08/14/24 mirtazapine 30 mg tablet 30 mg PO BEDTIME #90 tabs 08/14/24 Diabetic shoes with 3 sets of #1 ea 11/06/24 insoles mupirocin 2 % topical ointment 1 applic topical BID 2 weeks #22 11/06/24 grams aripiprazole 10 mg tablet (Abilify) 10 mg PO .morning #90 tabs 12/03/24 Allergies Allergy/AdvReac Type Severity Reaction Status Date / Time No Known Allergies Allergy Verified 03/12/25 13:07 [facility] PFS: Medical History (Updated 04/05/25 @ 20:36 by Guilherme Brewster MD) Proctocolitis History of MRSA infection GERD (gastroesophageal reflux disease) Peripheral neuropathy Type 2 diabetes mellitus Psychiatric care Anemia Peripheral arterial disease COPD (chronic obstructive pulmonary disease) Dyslipidemia Essential hypertension Nicotine dependence, cigarettes, uncomplicated Schizoaffective disorder, depressive type BPH with obstruction/lower urinary tract symptoms Surgical History History of coronary artery stent placement History of eye surgery x3 History of surgery on arm Multiple procedures on the right arm related to MRSA infection H/O foot surgery x 2 for diabetic foot ulcer H/O colonoscopy yrs ago H/O esophagogastroduodenoscopy Status post femoral-popliteal bypass surgery Left femoropopliteal bypass in 2012 with redo bypass in 2013 S/P angioplasty Angioplasty with stent placement to the right leg Family History Family/Other Stroke Cancer Diabetes Hypertension Unknown Cancer Father , at age 59 Alcoholic Mother Lung disease Stroke Denies family history of Anesthesia complication Bleeding disorder Social History Smoking and tobacco/nicotine status: former use of tobacco/nicotine (NONE FOR 4 MONTHS) Alcohol intake: former Substance/Drug Use: never Household members: other Details: room mate Marital status: Current occupational status: disabled Current gender identity: Male Physical Exam Const: COMMON NORMALS: no acute distress, average body habitus, patient oriented x3, no limitations, healthy appearing, alert and well nourished Neck/C-Spine: COMMON NORMALS: no JVD Resp: COMMON NORMALS: normal respiratory effort, No retractions, No use of accessory muscles, clear to auscultation bilaterally and percussion normal AUSCULTATION: clear to auscultation bilaterally PERCUSSION: percussion normal Cardio: COMMON NORMALS: no JVD, regular rate, regular rhythm, S1 normal heart sound present, S2 normal heart sound present, No gallops present (Cardio), No clicks present (Cardio), No murmurs present (Cardio), No rub (Cardio) and Peripheral pulses 2+ throughout RATE: regular rate RHYTHM: regular rhythm HEART SOUNDS: S1 normal heart sound present and S2 normal heart sound present PERIPHERAL PULSES: Peripheral pulses 2+ throughout GI: COMMON NORMALS: Normal to inspection, nondistended, normoactive bowel sounds present, Soft to palpation, non-tender, No hepatosplenomegaly present, no masses and no bruits PALPATION: Yes Soft to palpation and Yes No hepatosplenomegaly present Neuro: COMMON NORMALS: patient oriented x3 SENSORIUM/ORIENTATION: Yes alert Course Vital Signs: Vital signs: Vital Signs Temperature 97.6 F 04/05/25 18:07 Pulse Rate 79 04/05/25 19:53 Respiratory Rate 18 04/05/25 19:53 Blood Pressure 95/43 04/05/25 19:53 Pulse Oximetry 92 04/05/25 19:53 Oxygen Delivery Me thod Room Air 04/05/25 19:53 MDM - General Adult Medical Decision Making Patient with 20 pound weight loss over the past 2 weeks with excessive vomiting over the last 2 weeks. He states that he is at all to tolerate much p.o. He does have RUFINA which is likely secondary to dehydration. Has hyperkalemia and hyponatremia as well. Has anemia. Does have a history of chronic anemia and has had had blood transfusions in the past. Denies any GI bleed. Patient has no chest pain or abdominal pain. Has no cough or shortness of breath. Patient had a CT looking for possible malignancy of the chest abdomen and pelvis. No obvious malignancy found. Possibly a little aspiration pneumonia based upon CT findings but patient has no other clinical symptoms of such. Discussed this with the hospitalist. Will admit patient to the hospital for further evaluation and treatment. Lab Data 04/05/25 18:23 04/05/25 18:23 Radiology Impressions Chest X-Ray 04/05/25 18: IMPRESSION: No acute findings. Chest/Abdomen/Pelvis CT 04/05/25 19:11 IMPRESSION: 1. Several scattered ground-glass opacities predominantly centered in the right lower lobe most suggestive of small airway infectious or inflammatory process. 2. No findings to suggest malignancy in the chest. IMPRESSION: 1. Mild circumferential wall thickening rectum suggestive of proctitis. 2. No clear findings of malignancy in the abdomen/pelvis. Laboratory Results WBC 10.23 10^3/uL (3.29-11.43) 04/05/25 18: RBC 2.86 10^6/uL (3.85-5.65) L 04/05/25 18:23 Hgb 7.80 g/dL (11.27-16.99) L 04/05/25 18:23 Hct 24.9 % (37-53) L 04/05/25 18:23 MCV 87.1 fl (82-101) 04/05/25 18:23 MCH 27.3 pg (27-33) 04/05/25 18: MCHC 31.3 g/dL (30-55) 04/05/25 18:23 RDW 16.6 % (12.1-15.1) H 04/05/25 18:23 Plt Count 273 10^3/cmm (157-399) 04/05/25 18: MPV 8.8 fL (7.4-10.4) 04/05/25 18:23 Neut % (Auto) 79.3 % 04/05/25 18:23 Lymph % (Auto) 12.8 % 04/05/25 18:23 [place] % (Auto) 6.9 % 04/05/25 18:23 Eos % (Auto) 0.3 % 04/05/25 18:23 Baso % (Auto) 0.2 % 04/05/25 18:23 Neut # (Auto) 8.11 10^3/uL (1.8-7.7) H 04/05/25 18:23 Lymph # (Auto) 1.3 10^3/uL (0.8-4.8) 04/05/25 18:23 [place] # (Auto) 0.7 10^3/uL (0.2-0.9) 04/05/25 18:23 Eos # (Auto) 0.0 10^3/uL (0.0-0.8) 04/05/25 18:23 Baso # (Auto) 0.0 10^3/uL (0.0-0.1) 04/05/25 18:23 Nucleated RBC % (auto) 0 % 04/05/25 18:23 Nucleated RBCs # 0.0 /100WBC 04/05/25 18:23 Sodium 128 mmol/L (136-145) L 04/05/25 18:23 Potassium 5.5 mmol/L (3.5-5.1) H 04/05/25 18:23 Chloride 97 mmol/L (98-107) L 04/05/25 18:23 Carbon Dioxide 14 mmol/L (22-29) L 04/05/25 18:23 Anion Gap 22.5 (5-19) H 04/05/25 18:23 BUN 60 mg/dL (8-23) H 04/05/25 18:23 Creatinine 2.9 mg/dL (0.7-1.2) H 04/05/25 18:23 GFR Calculation 21.6 mL/min (90-130) L 04/05/25 18:23 Glucose 69 mg/dL (65-115) 04/05/25 18:23 Calculated Osmolality 281 mOsm/kg (285-295) L 04/05/25 18:23 Lactic Acid 0.9 mmol/L (0.5-2.2) 04/05/25 18:23 Calcium 8.2 mg/dL (8.5-10.5) L 04/05/25 18:23 Magnesium 1.6 mg/dL (1.7-2.3) L 04/05/25 18:23 Total Bilirubin 0.2 mg/dL (0.15-1.2) 04/05/25 18:23 AST 24 U/L (0-40) 04/05/25 18:23 ALT 20 U/L (0-41) 04/05/25 18:23 Alkaline Phosphatase 88 U/L (40-130) 04/05/25 18:23 Total Protein 6.8 g/dL (6.6-8.7) 04/05/25 18:23 Albumin 3.5 g/dL (3.5-5.2) 04/05/25 18:23 Globulin 3.3 g/dL (1.3-4.6) 04/05/25 18:23 Lipase 17 U/L (13-60) 04/05/25 18:23 All radiology interpretation(s) finalized by discharge Discharge Plan Discharge Patient Disposition: Placed in Observation Clinical Impression: RUFINA (acute kidney injury), Dehydration Anemia Qualifiers: Anemia type: unspecified type Qualified Code(s): D64.9 - Anemia, unspecified Vomiting Qualifiers: Vomiting type: unspecified Nausea presence: with nausea Qualified Code(s): R11.2 - Nausea with vomiting, unspecified Coding Level of Care Code ED Bowl Topper for Becca Oliver
[2025-04-05 20:53] LABS: Procalcitonin 4.22 ng/mL (0-0.5)
[2025-04-05] MEDS: sodium polystyrene sulfonate 15 gm/60 mL Btl PO (21:30)
[2025-04-05] MEDS: calcium gluconate 0.1 gm/mL 10% SDV 10mL 1 GM IVP (21:38)
[2025-04-05 22:26] LABS: Bilirubin Urine Negative (Negative); Blood Urine 1+ (Negative); Glucose Urine UA Trace (Normal); Ketones Urine Negative (Negative); Leukocyte Esterase Urine Negative (Negative); Nitrate Urine Negative (Negative); Protein Urine 2+ (Negative); Specific Gravity, Urine 1.013 (1.005-1.030); Urine Appearance Cloudy (CLEAR); Urine Color Yellow (Yellow); Urobilinogen Urine 0.2 mg/dL (Negative)
[2025-04-05 22:31] LABS: Add Urine Microscopic? YES; Bacteria Urine None Seen /hpf; Hyaline Casts Urine 9.91 /lpf; RBC Urine 0-2 /hpf (0-2); WBC Urine 0-5 /hpf (0-5)
[2025-04-05] MEDS: mirtazapine 30 mg Tablet PO (22:35)
[2025-04-05] MEDS: heparin 5,000 unit/mL INJ 1 mL 5000 UNIT SUBCUT (22:35)
[2025-04-05] MEDS: tamsulosin 0.4 mg Capsule PO (22:35)
[2025-04-05] MEDS: cefepime 2,000 mg SDV 2000 MG IVP (22:35)
[2025-04-05] MEDS: pantoprazole 40 mg SDV IVP (22:35)
[2025-04-05 22:39] LABS: Potassium, Radom Urine 32 mmol/L; Urine Random Chloride 26 mmol/L; Urine Random Sodium 30 mmol/L
[2025-04-05 22:59] LABS: UA Slide Review UA Slide Review Perf
[2025-04-05 23:00] LABS: Add Urine Culture? No; Other Casts Urine EPITHELIAL /lpf
[2025-04-05 23:02] LABS: Glucose Point of Care 129 mg/dL (70-110)
[2025-04-06] VITALS (12 sets, daily range): BP systolic 101–147; BP diastolic 49–73; PULSE 71–96; RESP 16–19; TEMP 36.4–37.2; O2SAT 92–98
[2025-04-06 03:59] LABS: Basophils % 0.2 %; Eosinophils # 0.2 10^3/uL (0.0-0.8); Hematocrit 24.4 % (37-53); Lymphocytes # 1.2 10^3/uL (0.8-4.8); Lymphocytes % 18.2 %; Mean Corpuscular HGB Conc 31.6 g/dL (30-55); Mean Corpuscular Hemoglobin 27.7 pg (27-33); Mean Corpuscular Volume 87.8 fl (82-101); Mean Platelet Volume 8.8 fL (7.4-10.4); Monocytes # 0.4 10^3/uL (0.2-0.9); Monocytes % 6.6 %; Neutrophils # 4.57 10^3/uL (1.8-7.7); Neutrophils % 71.5 %; Nucleated Red Blood Cells % 0 %; Platelet Count 234 10^3/cmm (157-399); Red Blood Count 2.78 10^6/uL (3.85-5.65); Red Cell Distribution Width 16.6 % (12.1-15.1); White Blood Count 6.38 10^3/uL (3.29-11.43)
[2025-04-06 04:11] LABS: Alanine Aminotransferase 19 U/L (0-41); Albumin Level 3.1 g/dL (3.5-5.2); Alkaline Phosphatase 88 U/L (40-130); Anion Gap 17.1 (5-19); Aspartate Amino Transferase 24 U/L (0-40); Blood Urea Nitrogen 58 mg/dL (8-23); Carbon Dioxide 16 mmol/L (22-29); Chloride 104 mmol/L (98-107); Creatinine Clr Calc Pharmacy 21.8372; Globulin 3.2 g/dL (1.3-4.6); Glomerular Filtration Rate 23.5 mL/min (90-130); Glucose 88 mg/dL (65-115); Magnesium 1.6 mg/dL (1.7-2.3); Osmolality Calculated 292 mOsm/kg (285-295); Phosphorus 4.7 mg/dL (2.5-4.5); Potassium 4.1 mmol/L (3.5-5.1); Sodium 133 mmol/L (136-145); Total Bilirubin 0.2 mg/dL (0.15-1.2); Total Protein 6.3 g/dL (6.6-8.7)
[2025-04-06] MEDS: clopidogrel 75 mg Tablet PO (05:25)
[2025-04-06] MEDS: aspirin 81 mg EC Tablet PO (05:25)
[2025-04-06] MEDS: metoclopramide 10 mg Tablet 5 MG PO ×3 (06:02→18:00)
[2025-04-06 06:18] LABS: Glucose Point of Care 83 mg/dL (70-110)
--- NOTE | 2025-04-06 08:10 | PHA.VACGOAL ---
Vancomycin Goal - Goal Vancomycin Goal:: 15-20 mg/L Vancomycin Indication:: Pneumonia - Therapy Current therapy:: Cefepime Day of therpy:: Day []of [] . Actual body weight (kg): 132 lb 9.6 oz - Data Labs: WBC 6.38 10^3/uL (3.29-11.43) 04/06/25 03:05 RBC 2.78 10^6/uL (3.85-5.65) L 04/06/25 03:05 Hgb 7.70 g/dL (11.27-16.99) L 04/06/25 03:05 Hct 24.4 % (37-53) L 04/06/25 03:05 MCV 87.8 fl (82-101) 04/06/25 03:05 MCH 27.7 pg (27-33) 04/06/25 03:05 MCHC 31.6 g/dL (30-55) 04/06/25 03:05 RDW 16.6 % (12.1-15.1) H 04/06/25 03:05 Sodium 133 mmol/L (136-145) L 04/06/25 03:05 Potassium 4.1 mmol/L (3.5-5.1) 04/06/25 03:05 Chloride 104 mmol/L (98-107) 04/06/25 03:05 Carbon Dioxide 16 mmol/L (22-29) L 04/06/25 03:05 Anion Gap 17.1 (5-19) 04/06/25 03:05 BUN 58 mg/dL (8-23) H 04/06/25 03:05 Creatinine 2.7 mg/dL (0.7-1.2) H 04/06/25 03:05 GFR Calculation 23.5 mL/min (90-130) L 04/06/25 03:05 Last dialysis session:: N/A Treatment plan:: new consult Regimen:: GIVING 2000 MG X 1 INITIAL LOADING DOSE. DUE TO RENAL FUNCTION, WILL PULSE DOSE INTERMITTENTLY. WILL OBTAIN TROUGH 24 HOURS POST LOADING DOSE. Follow up:: TROUGH 04/07 @0857
--- NOTE | 2025-04-06 08:23 | PC.PHAR ---
Pt uses [facility] nurse to set up his medications. Called them this morning and they answered the phone but would not fax a copy of pts' med list due to they are closed on the weekends. Med rec completed via last fill date and day supply from [facility] current records.
[2025-04-06] MEDS: sucralfate 1 gm/10 mL Oral Liq UDC PO ×2 (09:05→18:00)
[2025-04-06] MEDS: vancomycin 2,000 MG/400 ML PIGGYBACK 200 MG IV (09:08)
[2025-04-06] MEDS: budesonide 0.5 mg/2 mL Neb INHALATION ×2 (09:13→20:10)
[2025-04-06] MEDS: heparin 5,000 unit/mL INJ 1 mL 5000 UNIT SUBCUT ×2 (09:25→20:08)
[2025-04-06] MEDS: pantoprazole 40 mg SDV IVP ×2 (10:53→20:09)
[2025-04-06] MEDS: prednisoLONE 1% Op Susp 5 mL Btl 1 DROP EYE-LEFT ×4 (10:53→20:08)
[2025-04-06] MEDS: pneumococcal (23 valent) SDV 0.5 mL IM (10:54)
[2025-04-06 11:36] LABS: Glucose Point of Care 140 mg/dL (70-110)
--- NOTE | 2025-04-06 11:44 | P.PN_ITS ---
Subjective 2 Subjective: No acute events overnight. Patient seen at his bedside and reports that he feels better today. He was able to tolerate clear liquid diet this morning. He has no new complaints Vitals/I&O/Wt Last Vital Signs Temp 97.6 F 04/06/25 07:53 Pulse 82 04/06/25 09:16 Resp 16 04/06/25 09:16 BP 147/73 04/06/25 07:53 Pulse Ox 94 04/06/25 09:16 O2 Del Method Nasal Cannula 04/06/25 09:16 04/05/25 04/06/25 04/06/25 22:59 06:59 14:59 Intake Total 1999 / 1999 1315 / 1315 Output Total 450 / 450 1000 / 1000 Balance 1550 / 1550 315 / 315 Weight last 48 hrs Weight 60.146 kg Weight 60.645 kg Weight 58.967 kg Physical Exam 2 Narrative: General: Awake, alert, no acute distress ill. Head: Normocephalic. Atraumatic. EOM intact. Neck: No JVD. Cardiovascular: RRR. No gallops. No murmurs. No peripheral edema. Lungs: Diminished breath sounds bilaterally, no wheezes or crackles Skin: No jaundice. No rashes. Abdomen: Normal bowel sounds, abdomen soft and nontender. Extremities: No cyanosis or clubbing. Musculoskeletal: No swollen or erythematous joints. Neurological: Moves all 4 extremities. Data 04/06/25 03:05 04/06/25 03:05 Micro: Microbiology 04/05/25 22:09 Bacterial Antigens - Final Urine,Clean Catch A&P Assessment and plan (1) Schizoaffective disorder, depressive type: (2) Metabolic acidosis: (3) Dehydration: (4) RUFINA (acute kidney injury): (5) Pneumonia: (6) Nausea and vomiting: Plan #Intractable nausea and vomiting #Acute kidney injury #High anion gap metabolic acidosis #Hypovolemic hyponatremia #Unintentional weight loss #Dehydration -Patient symptoms improved this morning, he is tolerating p.o. liquid diet -Will advance diet today -Creatinine slowly trending down, metabolic acidosis improving -Continue bicarb infusion today -Avoid nephrotoxic medications -Continue IV Protonix - Continue other supportive care #Pneumonia - Suspected community-acquired bacterial versus aspiration -Continue vancomycin and cefepime -De-escalate antibiotics as appropriate #Proctitis -Continue antibiotics - Monitor consistency of bowel movement, stool studies if patient has diarrhea #Type 2 diabetes mellitus - Hold oral medications - Low-dose sliding scale insulin correction #COPD without exacerbation - Breathing treatments as needed #Peripheral arterial disease - Continue antiplatelet agents #Schizoaffective disorder - Continue home medications #Benign prostatic hypertrophy - Continue Flomax #History of normocytic anemia - Continue outpatient follow-up DVT ppx: Heparin PDMP PDMP Reviewed: Not Reviewed Attestations 2 Medical Necessity Statement*: Patient to continue inpatient care today for management of RUFINA, metabolic acidosis, pneumonia Coding Level of Care Code Acute Code for [facility] Fwd Diagnoses Schizoaffective disorder, depressive type F25.1 Metabolic acidosis E87.20 Dehydration E86.0 RUFINA (acute kidney injury) N17.9 Pneumonia J18.9 Nausea and vomiting R11.2
[2025-04-06 11:52] LABS: C.Diff PCR (Lab) NEGATIVE (Negative)
[2025-04-06 17:13] LABS: Glucose Point of Care 101 mg/dL (70-110)
[2025-04-06] MEDS: mirtazapine 30 mg Tablet PO (20:08)
[2025-04-06] MEDS: tamsulosin 0.4 mg Capsule PO (20:08)
[2025-04-06] MEDS: cefepime 2,000 mg SDV 2000 MG IVP (20:09)
[2025-04-06] MEDS: albuterol 2.5 mg/3 mL Neb INHALATION (20:10)
[2025-04-06] MEDS: magnesium sulfate premix 1 GM/100 ML PIGGYBACK IV (20:10)
[2025-04-06 20:37] LABS: Glucose Point of Care 126 mg/dL (70-110)
[2025-04-06] MEDS: atorvastatin 40 mg Tablet 20 MG DOBHOFF (21:57)
[2025-04-07 03:26] LABS: Basophils % 0.4 %; Eosinophils # 0.3 10^3/uL (0.0-0.8); Eosinophils % 5.4 %; Hematocrit 24.3 % (37-53); Lymphocytes % 21.5 %; Mean Corpuscular HGB Conc 32.1 g/dL (30-55); Mean Corpuscular Hemoglobin 26.8 pg (27-33); Mean Corpuscular Volume 83.5 fl (82-101); Mean Platelet Volume 9.1 fL (7.4-10.4); Monocytes # 0.3 10^3/uL (0.2-0.9); Monocytes % 6.3 %; Neutrophils # 3.14 10^3/uL (1.8-7.7); Neutrophils % 65.6 %; Nucleated Red Blood Cells % 0 %; Platelet Count 259 10^3/cmm (157-399); Red Blood Count 2.91 10^6/uL (3.85-5.65); Red Cell Distribution Width 16.4 % (12.1-15.1); White Blood Count 4.79 10^3/uL (3.29-11.43)
[2025-04-07 03:47] VITALS: BP 139/72; PULSE 99; RESP 18; TEMP 37.2; O2SAT 92
[2025-04-07 03:50] LABS: Anion Gap 16.9 (5-19); Blood Urea Nitrogen 26 mg/dL (8-23); Carbon Dioxide 20 mmol/L (22-29); Chloride 106 mmol/L (98-107); Creatinine Clr Calc Pharmacy 44.6078; Glomerular Filtration Rate 54.6 mL/min (90-130); Glucose 146 mg/dL (65-115); Phosphorus 2.1 mg/dL (2.5-4.5); Potassium 3.9 mmol/L (3.5-5.1); Sodium 139 mmol/L (136-145)
[2025-04-07 05:04] VITALS: PULSE 81
[2025-04-07] MEDS: clopidogrel 75 mg Tablet PO (05:32)
[2025-04-07] MEDS: aspirin 81 mg EC Tablet PO (05:32)
[2025-04-07] MEDS: metoclopramide 10 mg Tablet 5 MG PO ×2 (06:01→12:20)
[2025-04-07 06:32] LABS: Glucose Point of Care 122 mg/dL (70-110)
[2025-04-07 07:26] VITALS: BP 136/71; PULSE 76; RESP 15; TEMP 36.8; O2SAT 95
[2025-04-07 08:00] VITALS: PULSE 85; RESP 18; O2SAT 97
[2025-04-07] MEDS: sucralfate 1 gm/10 mL Oral Liq UDC PO (08:34)
[2025-04-07] MEDS: prednisoLONE 1% Op Susp 5 mL Btl 1 DROP EYE-LEFT ×2 (08:34→12:21)
[2025-04-07] MEDS: budesonide 0.5 mg/2 mL Neb INHALATION (08:50)
[2025-04-07] MEDS: albuterol 2.5 mg/3 mL Neb INHALATION (08:50)
[2025-04-07 09:17] LABS: Vancomycin Trough 13.2 ug/mL (10-15)
[2025-04-07] MEDS: pantoprazole 40 mg SDV IVP (09:19)
[2025-04-07] MEDS: heparin 5,000 unit/mL INJ 1 mL 5000 UNIT SUBCUT (09:19)
[2025-04-07 11:39] LABS: Glucose Point of Care 251 mg/dL (70-110)
[2025-04-07 11:41] VITALS: BP 167/71; PULSE 85; RESP 16; TEMP 36.9; O2SAT 95
[2025-04-07] MEDS: VANCOMYCIN ADD-Vantage 750 MG in 0.9% NaCl ADD-Vantage 250 ML 250 MG IV (12:21)
[2025-04-07] MEDS: insulin lispro 100 unit/1 mL SUBCUT (12:21)
[2025-04-07 17:29] VITALS: BP 167/71; PULSE 85; RESP 16; TEMP 36.9; O2SAT 95
--- NOTE | 2025-04-07 17:30 | PC.NURSE ---
Discharge paperwork discussed with patient and patient's son. Patient pulled out IV and was not bleeding. Patient dressed self. Patient transferred into wheelchair and was escorted to exit by this nurse with all belongings at 1715.
--- NOTE | 2025-04-07 18:31 | P.DS_ITS ---
Discharge Providers Date of Admission: 04/05/25 20:34 Date of Discharge: April 07, 2025 Attending Provider at Admission: Sang Valladares MD Attending Provider at Discharge: Johanne Wyman MD Primary Care Provider: Diego Glass MD Diagnoses at Discharge Discharge Diagnosis (1) Schizoaffective disorder, depressive type: Status: Chronic (2) Metabolic acidosis: Status: Acute (3) Dehydration: Status: Acute (4) RUFINA (acute kidney injury): Status: Acute (5) Pneumonia: Status: Acute (6) Nausea and vomiting: Status: Acute (7) Proctitis: Status: Acute Reason for Visit Reason for Visit: rapid weight loss, BP low confused UC sent Brief History: Patient is a 70-year-old male with a past medical history significant for GERD, type 2 diabetes mellitus, peripheral neuropathy, PAD, COPD, hypertension who pre sented to the emergency department on 04/05/2025 with intractable nausea and vomiting. Patient had been unable to hold down any liquids or solids for the past 2 weeks. He has some abdominal discomfort but no blas abdominal pain. He had subjective fever and chills associated and unintentional 20 pound weight loss. Patient has a history of longstanding chronic anemia for which she has had EGD and colonoscopy but states that this was several ago. He underwent CT of the abdomen and pelvis which showed evidence of proctitis. Chest x-ray additionally showed bilateral scattered infiltrates concerning for pneumonia. He received empiric antibiotic treatment with cefepime and vancomycin during his admission course. This has been transitioned to Augmentin on the day of discharge. Overall patient has had clinical improvement. Today he is afebrile. Dehydration has resolved. He is able to tolerate oral intake. Feels much better and wishes to go home. He did have some diarrhea upon admission. C. difficile testing was negative. This is additionally resolved at this time. Instructed to follow-up with general surgery within 2 to 3 weeks of discharge to assess for colonoscopy given findings of proctitis. Physical Exam Narrative: General: No acute distress, AO x3 HEENT: PERRLA, pupils bilaterally equal and reactive, pallors not present Chest: Normal vesicular breath sounds, no added sounds, equal good air entry bilaterally CVS: S1-S2 regular, no murmurs, no tachycardia, no gallops, no rubs Abdomen: Soft, nontender, no organomegaly, bowel sounds present Neuro: No focal deficits, no facial deformity, AO x3, power 5/5 in all limbs Discharge Data Studies Completed and Pending Completed Studies During Hospitalization Category [place] [id number] Stat Cat Scan 04/05/25 19:11 Completed XR chest 1V portable [id number] Stat Exams 04/05/25 18:25 Completed Pending at discharge Category Date Time Status Stool Culture - Enteric [Salmonella / Shigella / Campy] Lab 04/06/25 09:40 Received Routine Radiology Impressions Chest X-Ray 04/05/25 18:25 IMPRESSION: No acute findings. Chest/Abdomen/Pelvis CT 04/05/25 19:11 IMPRESSION: 1. Several scattered ground-glass opacities predominantly centered in the right lower lobe most suggestive of small airway infectious or inflammatory process. 2. No findings to suggest malignancy in the chest. IMPRESSION: 1. Mild circumferential wall thickening rectum suggestive of proctitis. 2. No clear findings of malignancy in the abdomen/pelvis. Laboratory Results WBC 4.79 10^3/uL (3.29-11.43) 04/07/25 02:31 RBC 2.91 10^6/uL (3.85-5.65) L 04/07/25 02:31 Hgb 7.80 g/dL (11.27-16.99) L 04/07/25 02:31 Hct 24.3 % (37-53) L 04/07/25 02:31 MCV 83.5 fl (82-101) 04/07/25 02:31 MCH 26.8 pg (27-33) L 04/07/25 02:31 MCHC 32.1 g/dL (30-55) 04/07/25 02:31 RDW 16.4 % (12.1-15.1) H 04/07/25 02:31 Plt Count 259 10^3/cmm (157-399) 04/07/25 02:31 MPV 9.1 fL (7.4-10.4) 04/07/25 02:31 Neut % (Auto) 65.6 % 04/07/25 02:31 Lymph % (Auto) 21.5 % 04/07/25 02:31 Coleman % (Auto) 6.3 % 04/07/25 02:31 Eos % (Auto) 5.4 % 04/07/25 02:31 Baso % (Auto) 0.4 % 04/07/25 02:31 Neut # (Auto) 3.14 10^3/uL (1.8-7.7) 04/07/25 02:31 Lymph # (Auto) 1.0 10^3/uL (0.8-4.8) 04/07/25 02:31 Coleman # (Auto) 0.3 10^3/uL (0.2-0.9) 04/07/25 02:31 Eos # (Auto) 0.3 10^3/uL (0.0-0.8) 04/07/25 02:31 Baso # (Auto) 0.0 10^3/uL (0.0-0.1) 04/07/25 02:31 Nucleated RBC % (auto) 0 % 04/07/25 02:31 Nucleated RBCs # 0.0 /100WBC 04/07/25 02:31 Sodium 139 mmol/L (136-145) 04/07/25 02:31 Potassium 3.9 mmol/L (3.5-5.1) 04/07/25 02:31 Chloride 106 mmol/L (98-107) 04/07/25 02:31 Carbon Dioxide 20 mmol/L (22-29) L 04/07/25 02:31 Anion Gap 16.9 (5-19) 04/07/25 02:31 BUN 26 mg/dL (8-23) H 04/07/25 02:31 Creatinine 1.3 mg/dL (0.7-1.2) H 04/07/25 02:31 GFR Calculation 54.6 mL/min (90-130) L 04/07/25 02:31 Glucose 146 mg/dL (65-115) H 04/07/25 02:31 POC Glucose 251 mg/dL (70-110) H 04/07/25 11:14 Calculated Osmolality 292 mOsm/kg (285-295) 04/06/25 03:05 Lactic Acid 0.9 mmol/L (0.5-2.2) 04/05/25 18:23 Calcium 8.0 mg/dL (8.5-10.5) L 04/07/25 02:31 Phosphorus 2.1 mg/dL (2.5-4.5) L D 04/07/25 02:31 Magnesium 1.6 mg/dL (1.7-2.3) L 04/06/25 03:05 Total Bilirubin 0.2 mg/dL (0.15-1.2) 04/06/25 03:05 AST 24 U/L (0-40) 04/06/25 03:05 ALT 19 U/L (0-41) 04/06/25 03:05 Alkaline Phosphatase 88 U/L (40-130) 04/06/25 03:05 C-Reactive Protein 145.0 mg/L (0.0-4.9) H 04/05/25 18:23 Total Protein 6.3 g/dL (6.6-8.7) L 04/06/25 03:05 Albumin 3.0 g/dL (3.5-5.2) L 04/07/25 02:31 Globulin 3.2 g/dL (1.3-4.6) 04/06/25 03:05 Lipase 17 U/L (13-60) 04/05/25 18:23 Procalcitonin 4.22 ng/mL (0-0.5) H 04/05/25 18:23 Urine Color Yellow (Yellow) 04/05/25 22:09 Urine Appearance Cloudy (CLEAR) A 04/05/25 22:09 Urine pH 5.0 (5-7) 04/05/25 22:09 Ur Specific Griffin 1.013 (1.005-1.030) 04/05/25 22:09 Urine Protein 2+ (Negative) A 04/05/25 22:09 Urine Glucose (UA) Trace (Normal) H 04/05/25 22:09 Urine Ketones Negative (Negative) 04/05/25 22:09 Urine Blood 1+ (Negative) A 04/05/25 22:09 Urine Nitrate Negative (Negative) 04/05/25 22:09 Urine Bilirubin Negative (Negative) 04/05/25 22:09 Urine Urobilinogen 0.2 mg/dL (Negative) 04/05/25 22:09 Ur Leukocyte Esterase Negative (Negative) 04/05/25 22:09 Urine RBC 0-2 /hpf (0-2) 04/05/25 22:09 Urine WBC 0-5 /hpf (0-5) 04/05/25 22:09 Ur Squamous Epith Cells 11-20 /hpf (0-5) H 04/05/25 22:09 Amorphous Sediment Not Reportable 04/05/25 22:09 Urine Bacteria None seen /hpf (NONE) 04/05/25 22:09 Hyaline Casts 9.91 /lpf 04/05/25 22:09 Coarse Granular Casts 5-10 /lpf H 04/05/25 22:09 Other Casts Epithelial /lpf 04/05/25 22:09 Ur Random Sodium 30 mmol/L 04/05/25 22:09 Ur Random Potassium 32 mmol/L 04/05/25 22:09 Ur Random Chloride 26 mmol/L 04/05/25 22:09 Vancomycin Trough 13.2 ug/mL (09-11) 04/07/25 08:53 C. difficile (PCR) Negative (Negative) 04/06/25 09:40 Vitals Last Vital Signs Temp 98.5 F 04/07/25 17:29 Pulse 85 04/07/25 17:29 Resp 16 04/07/25 17:29 BP 167/71 04/07/25 17:29 Pulse Ox 95 04/07/25 17:29 O2 Del Method Room Air 04/07/25 11:41 Discharge Plan Discharge Patient Disposition: Home Condition: Stable Prescriptions: New amoxicillin-pot clavulanate 875-125 mg tablet 1 tab PO BID 5 Days Qty: 10 0RF Continued gabapentin 300 mg capsule 300 mg PO TID tamsulosin 0.4 mg capsule 0.4 mg PO BEDTIME ascorbic acid (vitamin C) 500 mg capsule 500 mg PO DAILY finasteride 5 mg tablet 5 mg PO QAM ferrous sulfate 325 mg (65 mg iron) tablet 325 mg PO QAM Breztri Aerosphere 160-9-4.8 mcg/actuation HFA aerosol inhaler 2 inh inhalation BID pentoxifylline 400 mg tablet extended release 400 mg PO TID Qty: 90 4RF Rx Instructions: must administer with a meal/food dapagliflozin propanediol [Farxiga] 10 mg tablet 10 mg PO DAILY metformin 1,000 mg tablet 1,000 mg PO BID buspirone 30 mg tablet 30 mg PO BID Qty: 180 2RF mirtazapine 30 mg tablet 30 mg PO BEDTIME Qty: 90 2RF (DME) Diabetic shoes with 3 sets of insoles See Rx Instructions .Route .MEDSUPPLY Qty: 1 0RF Rx Instructions: As directed by Sharlenebrian Kuhn metoclopramide HCl 5 mg tablet 5 mg PO TID nitroglycerin 0.4 mg tablet, sublingual See Rx Instructions .ROUTE .COMPLEX Qty: 25 2RF Dose Instruction: DISSOLVE ONE TABLET UNDER THE TONGUE EVERY 5 MINUTES NEEDED FOR CHEST PAIN. DO NOT EXCEED A TOTAL OF 3 DOSES IN 15 MINUTES Rx Instructions: DISSOLVE ONE TABLET UNDER THE TONGUE EVERY 5 MINUTES NEEDED FOR CHEST PAIN. DO NOT EXCEED A TOTAL OF 3 DOSES IN 15 MINUTES aripiprazole [Abilify] 10 mg tablet 10 mg PO .morning Qty: 90 2RF Rx Instructions: Take one tablet every morning docusate sodium 100 mg Tablet 100 mg PO BID PRN (Reason: Constipation) prednisolone acetate 1 % drops,suspension 1 drp ophthalmic (eye) QID Rx Instructions: left eye clopidogrel 75 mg tablet 75 mg PO QAM aspirin 81 mg tablet,delayed release (DR/EC) 81 mg PO QAM pravastatin 80 mg tablet 80 mg PO BEDTIME cyanocobalamin (vitamin B-12) 1,000 mcg/mL solution 1,000 mcg IM Q30D pantoprazole 40 mg tablet,delayed release (DR/EC) 40 mg PO BID albuterol sulfate [Ventolin HFA] 90 mcg/actuation HFA aerosol inhaler 2 puff INHALATION Q4H PRN (Reason: Shortness Of Breath) insulin glargine [Lantus Solostar U-100 Insulin] 100 unit/mL (3 mL) insulin pen 6 unit SUBCUT BEDTIME diclofenac sodium 1 % gel 4 g TOPICAL QID PRN (Reason: Pain) Discharge Orders: Discharge Order (Routine); Ordered 04/07/25 Ordered By: Johanne Wyman Referrals: Andrade Phillips MD [Physician, General Surgery] - 2 weeks Referral Note: We have notified your physician's clinic of the need for a follow-up appointment to be scheduled. If you have not heard from them within the next 2 business days, please call them directly. Diego Glass MD [Primary Care Provider, Family Practice] - 4-7 days Referral Note: You will need to contact your primary care provider tomorrow to make a follow up appointment in 4-7 days. Discharge Diet: Advance as tolerated Discharge Activity: Resume usual activity Patient Instructions: Amoxicillin/Clavulanate Potassium (By mouth) (Augmentin, Augmentin..., Rectal Bleeding (DC), Community Acquired Pneumonia (DC), Opioid Safety Discharge Attestations Time Spent in Discharge Care*: greater than 30 min Quality Metrics Clinical Quality Measures [ No reported AMI, CVA or VTE this stay] Coding Level of Care Code Acute Code for Chg Fwd Diagnoses Schizoaffective disorder, depressive type F25.1 Metabolic acidosis E87.20 Dehydration E86.0 RUFINA (acute kidney injury) N17.9 Pneumonia J18.9 Nausea and vomiting R11.2 Proctitis K62.89
== END 2025-04-07 17:10 | disposition home or self-care (01) ==
LOC: ER 20:36 → MEDSURG 21:30
PROVIDERS: Student in an Organized Health Care Education/Training Program; Admitting Provider Internal Medicine; Emergency Provider Emergency Medicine; PCP Family Medicine; Visit Provider Student in an Organized Health Care Education/Training Program
DX: R11.2 Nausea with vomiting, unspecified (principal); F25.1 Schizoaffective disorder, depressive type; E87.20 Acidosis, unspecified; E86.0 Dehydration; N17.9 Acute kidney failure, unspecified; J18.9 Pneumonia, unspecified organism; K62.89 Other specified diseases of anus and rectum; Z79.4 Long term (current) use of insulin; Z79.82 Long term (current) use of aspirin; K21.9 Gastro-esophageal reflux disease without esophagitis; Z79.84 Long term (current) use of oral hypoglycemic drugs; G62.9 Polyneuropathy, unspecified; I73.9 Peripheral vascular disease, unspecified; J44.9 Chronic obstructive pulmonary disease, unspecified; I10 Essential (primary) hypertension; D64.9 Anemia, unspecified; R19.7 Diarrhea, unspecified; Z87.891 Personal history of nicotine dependence; Z86.14 Personal history of Methicillin resistant Staphylococcus aureus infection; Z95.5 Presence of coronary angioplasty implant and graft; Z83.3 Family history of diabetes mellitus; Z82.49 Family history of ischemic heart disease and other diseases of the circulatory system
CPT/HCPCS: 36415; 36416; 71045; 71250; 74176; 80053; 80069; 80202; 81001; 82436; 82962; 83605; 83690; 83735; 84100; 84133; 84145; 84300; 85025; 86140; 86403; 87045; 87427; 87449; 87493; 90471; 90732; 94640; 96365; 96366; 96367; 96372; 96375; 99285; G0378; J0612; J0692; J1644; J1815; J2470; J3370; J3372; J3475; J7030; J7050; J7613; J7626; J8597; J9999

== ENCOUNTER 2025-05-24 11:26 | Outpatient (CLI) | payer OTHER, MEDICAID, SELFPAY ==
[2025-03-20 15:38] VITALS: BP 132/74; BMI 18.8
--- NOTE | 2025-05-24 11:28 | PETR_ITS ---
PROCEDURE INFORMATION: Exam: PET/CT Skull Base to Mid-thigh Exam date and time: 05/24/2025 12:38 PM Age: 70 years old Clinical indication: Abnormal findings; Several scattered ground-glass opacities predominantly centered in the right lower lobe most suggestive of small airway infectious or inflammatory process. ; Additional info: Abnormal imaging LABS AND CLINICAL REPORTS: Glucose: 120 mg/dl Treatment strategy for malignancy (PET staging): Initial Staging (PI) TECHNIQUE: Imaging protocol: Following at least four-hour fasting and following the injection of radiopharmaceutical, low dose CT images were obtained. Then, PET images were obtained. Attenuation corrected images were constructed using the CT scan. Fused images of PET and CT were reviewed. The standardized uptake values (SUV) reported below are maximum values within a region of interest, expressed in gm/ml. Exam includes orbital meatal line to mid-thigh. SUV normalization method: BodyWeight Radiopharmaceutical: 11.28 mCi F-18 FDG (Fluorodeoxyglucose), IV. Time of imaging post radiopharmaceutical administration: 62 minutes Injection site: right ac COMPARISON: [place] [id number] 04/05/2025 7:17 PM FINDINGS: Brain: Visualized brain has normal physiologic uptake. Pharynx: No abnormal uptake. Larynx: No abnormal uptake. Lungs, pleura and trachea: No abnormal uptake. Mild upper lung predominant emphysematous change. Mild biapical pleural-parenchymal scarring. Mild dependent atelectasis. Resolved pulmonary airspace opacities. Heart: Normal physiologic uptake. Coronary arteries: Heavy coronary artery calcification. Mediastinal space: No abnormal uptake. Liver: No abnormal uptake. Gallbladder and biliary ducts: No abnormal uptake. Pancreas: No abnormal uptake. Spleen: No abnormal uptake. Adrenal glands: No abnormal uptake. Kidneys and ureters: Normal physiologic uptake. Stomach and bowel: Pancolonic FDG uptake with some suggested wall thickening. Reproductive: Prostatomegaly without abnormal uptake. Stable small central prostate calcification. Vasculature: No abnormal uptake. Heavy systemic atherosclerotic calcification without aortic aneurysm. Partially visualized bilateral femoral artery bypass grafts. Lymph nodes: Low-level uptake at nonenlarged right hilar lymph nodes, index showing SUV max 3.6 on axial image 91. Skeleton: No abnormal uptake in the visualized axial and appendicular skeleton. Chronic fracture deformities of multiple posterior right ribs. Degenerative change along the spine and sacroiliac joints. Soft tissues: No abnormal uptake in the visualized head, neck, chest, abdomen, pelvis, and extremities. METRICS: Mediastinal blood pool: SUV mean 1.5 Liver uptake: SUV mean 1.6 PET/PET skull to thigh INIT [id number] IMPRESSION: 1. Low-level uptake at nonenlarged right hilar lymph nodes favored to be reactive, neoplastic thought less likely but difficult to entirely exclude. 2. Diffuse colonic FDG uptake with some suggested wall thickening suggestive of infectious or inflammatory colitis. 3. Additional chronic and incidental findings as above, to include atherosclerosis with heavy coronary artery calcification.
== END 2025-05-24 11:27 | disposition home or self-care (01) ==
PROVIDERS: PCP Family Medicine; Visit Provider Internal Medicine
DX: R91.8 Other nonspecific abnormal finding of lung field (principal); R59.0 Localized enlarged lymph nodes; I25.10 Atherosclerotic heart disease of native coronary artery without angina pectoris; J43.9 Emphysema, unspecified; J98.4 Other disorders of lung; J98.11 Atelectasis; R93.3 Abnormal findings on diagnostic imaging of other parts of digestive tract; N40.0 Benign prostatic hyperplasia without lower urinary tract symptoms; R93.89 Abnormal findings on diagnostic imaging of other specified body structures; I70.0 Atherosclerosis of aorta; Z96.89 Presence of other specified functional implants; M84.48XD Pathological fracture, other site, subsequent encounter for fracture with routine healing; M47.9 Spondylosis, unspecified; M46.1 Sacroiliitis, not elsewhere classified
CPT/HCPCS: 78815; A9552

== ENCOUNTER → 2025-05-28 13:40 | Outpatient (BNVA) | payer OTHER, MEDICAID, SELFPAY ==
[2025-03-20 15:38] VITALS: BP 132/74; BMI 18.8
== END ==
PROVIDERS: PCP Family Medicine; Visit Provider Podiatrist Foot & Ankle Surgery
DX: E11.42 Type 2 diabetes mellitus with diabetic polyneuropathy (principal); L60.3 Nail dystrophy; L84 Corns and callosities; E11.8 Type 2 diabetes mellitus with unspecified complications; I73.9 Peripheral vascular disease, unspecified; Z79.84 Long term (current) use of oral hypoglycemic drugs; Z79.4 Long term (current) use of insulin
CPT/HCPCS: 11055; 11721

== ENCOUNTER → 2025-06-04 09:13 | Outpatient (BNVA) | payer OTHER, MEDICAID, SELFPAY ==
[2025-03-20 15:38] VITALS: BP 132/74; BMI 18.8
== END ==
PROVIDERS: PCP Family Medicine; Visit Provider Surgery
DX: Z09 Encounter for follow-up examination after completed treatment for conditions other than malignant neoplasm (principal)
CPT/HCPCS: 99213

== ENCOUNTER 2025-06-06 10:10 | Outpatient (CLI) | payer OTHER, MEDICAID, SELFPAY ==
[2025-03-20 15:38] VITALS: BP 132/74; BMI 18.8
--- NOTE | 2025-06-06 10:15 | CTR_ITS ---
PROCEDURE INFORMATION: Exam: CT Chest With Contrast; Diagnostic Exam date and time: 06/06/2025 10:41 AM Age: 70 years old Clinical indication: Abnormal findings; Abnormal radiologic exam of lung or chest; Prior surgery; Surgery date: 6+ months; Surgery type: RT lung, heart stents; Additional info: Abnormal finding of lung field/lobar pneumonia/emphysema. No history of recent trauma or surgery is otherwise provided. TECHNIQUE: Imaging protocol: Diagnostic computed tomography of the chest with contrast. 249image(s) are provided. Radiation optimization: All CT scans at this facility use at least one of these dose optimization techniques: automated exposure control; mA and/or kV adjustment per patient size (includes targeted exams where dose is matched to clinical indication); or iterative reconstruction. Contrast material: OMNI 350; Contrast volume: 100 ml; Contrast route: INTRAVENOUS (IV); Other technique: Axial images are available with sagittal and coronal reconstruction views. Automated dose exposure control is utilized. The DLP is 242.76. COMPARISON: 1. PT PET skull to thigh INIT [id number] 05/24/2025 12:[address] [place] [id number] 04/05/2025 7:17 PM. Chest report 04/05/2025. CT chest report 03/01/2025. RADIATION DOSE METRICS: Total DLP (mGy-cm): 242.76 FINDINGS: Trachea: The central airways appear grossly patent overall. There appear to be some scarring, bronchiolectasis related changes. Lungs: No lobar consolidation is appreciated.There is some subsegmental atelectasis versus post inflammatory reticulonodular scarring demonstrated.There is some chronic air trapping appearance similar overall with some centrilobular distribution. There is some apical fibronodular scarring appearance similar overall. There is some ground-glass, nodularity present similar for example includin x 3 mm right lateral apex image 13. There is some slight lung fissure thickening. No interval parenchymal mass type changes are currently appreciated. There is some calcific density of the right hemidiaphragmatic margin similar image 49. There is some bandlike scarring with thickness of around 5 mm right image 23. Subpleural left posterior basal 3 x 4 mm image 41. Subpleural calcification type appearance right posteriorly image 30 as well as superior segmental ground-glass nodular focus of around 3 mm image 29. Some of these areas of scarring appear improved aeration robin as compared to the previous CT chest. This corresponds with the previous Fleischner description. Pleural spaces: No pneumothorax or significant pleural effusion is currently appreciated. As there are some calcifications abutting the pleural margin, consider if there is history of previous inflammation or inhalational lung disease. Heart: No significant pericardial fluid collection is appreciated. There appear to be some coronary arterial calcifications. Esophagus: There is some esophageal air overall present. Consider if there is history of reflux or dysmotility. Lymph nodes: There are some subcentimeter predominant short axis mediastinal, hilar lymph nodes overall present corresponding with the previous descriptions for example including subcarinal measuring around 1.4 x 0.9 cm as well as some pretracheal including precarinal measuring around 1.6 x 0.9 cm. Vasculature: There are some aortic root type calcifications as well as mitral apparatus. There is some dense branch vessel, origin calcifications including of the upper abdomen. No large central filling defects are currently appreciated. Intestine: There is some abundant stool content incompletely included although suggestive of constipation. Intraperitoneal space: The included intraperitoneal space, upper abdominal structures appear similar otherwise overall. Bones/joints: No interval displaced fracture or dislocation is appreciated.There are some degenerative changes of the shoulders and spine overall present. There are some chronic appearing rib deformities present. Soft tissues: No radiopaque foreign body or subcutaneous emphysema is appreciated. There does appear to be some subtle subcutaneous edema. There is some motion artifact present. No other significant interval changes are appreciated. CT/CT chest w con* [id number] IMPRESSION: 1. There is similar chronic air trapping, centrilobular emphysematous appearance along with some multifocal areas of postinflammatory appearing scarring. No interval lobar consolidation or cardiac decompensation is appreciated. Consider pulmonary function studies. 2. Some of the areas of described patchy consolidation appear somewhat improved aeration wires in the interval. 3. There are some subcentimeter predominant mediastinal and hilar lymph nodes overall present corresponding to the associated PET-CT description. Given the description of subtle activity, consider follow-up PET-CT when clinically feasible to evaluate for interval change or stability. 4. There is a small sliding-type hiatal hernia demonstrated with slight gastroesophageal fold thickening. Consider upper GI or endoscopy. COMMENTS: The presence of pulmonary emphysema on CT is an independent risk factor for lung cancer. In the absence of a history or active diagnosis of lung cancer, it is recommended that this patient with emphysema be evaluated for enrollment in a low dose CT lung cancer screening program.
[2025-06-06] MEDS: iohexol 350 mg/mL 500 mL Btl (per mL) IV (10:52)
== END 2025-06-06 10:11 | disposition home or self-care (01) ==
LOC: RAD 10:11
PROVIDERS: PCP Family Medicine; Visit Provider Internal Medicine
DX: R91.8 Other nonspecific abnormal finding of lung field (principal); J18.1 Lobar pneumonia, unspecified organism; R59.0 Localized enlarged lymph nodes; J43.9 Emphysema, unspecified; Z87.891 Personal history of nicotine dependence; I25.10 Atherosclerotic heart disease of native coronary artery without angina pectoris; K44.9 Diaphragmatic hernia without obstruction or gangrene
CPT/HCPCS: 71260

== ENCOUNTER → 2025-06-19 14:34 | Outpatient (BNVA) | payer MEDICARE, MEDICAID, SELFPAY ==
[2025-03-20 15:38] VITALS: BP 132/74; BMI 18.8
== END ==
PROVIDERS: PCP Family Medicine; Visit Provider Internal Medicine
DX: I25.10 Atherosclerotic heart disease of native coronary artery without angina pectoris (principal); I10 Essential (primary) hypertension; Z87.891 Personal history of nicotine dependence
CPT/HCPCS: 99214

== ENCOUNTER 2025-06-24 11:28 | Emergency (ER) | payer MEDICARE, MEDICAID, SELFPAY ==
[2025-03-20 15:38] VITALS: BP 132/74; BMI 18.8
--- OUTSIDE RECORDS SUMMARY | 2025-06-24 11:40 | XMS_ITS | Clinical Summary ---
Author Organization [email or web address] Address [address] [facility] [address] Attn: Epic Prelude ADT JAVI MALHOTRA [id number] Care Team Providers Care Presidential Support Specialist Name Role Phone Wendy Nuñez Primary Care Provider [phone] Allergies No known active allergies Medications PEG-Electrolyte Soln (NULYTELY) 420 g Recon Soln See instructions 4,000 mL 0 0 Active metFORMIN (GLUCOPHAGE) 850 mg tablet TAKE 1 TABLET BY MOUTH THREE TIMES DAILY 0 9 Active buPROPion HCL (WELLBUTRIN XL) 300 mg Extended Release 24 hour tablet TAKE 1 TABLET BY MOUTH EVERY DAY IN THE MORNING 2 9 Active pravastatin (PRAVACHOL) 80 mg tablet Take 80 mg by mouth daily at bedtime. 3 9 Active finasteride (PROSCAR) 5 mg tablet TAKE 1 TABLET EVERY NIGHT AT BEDTIME 3 9 Active SITagliptin phosphate (Januvia) 100 mg Tablet TAKE 1 TABLET EVERY DAY 3 9 Active mirtazapine (REMERON) 15 mg tablet TAKE 1 TABLET BY MOUTH EVERYDAY AT BEDTIME 2 9 Active gabapentin (NEURONTIN) 300 mg capsule TAKE 1 CAPSULE BY MOUTH THREE TIMES A DAY 3 9 Active ARIPiprazole (ABILIFY) 10 mg tablet TAKE 1 TABLET BY MOUTH EVERY DAY IN THE MORNING 2 9 Active tamsulosin (FLOMAX) 0.4 mg capsule TAKE 2 CAPSULES BY MOUTH DAILY 5 9 Active busPIRone (BUSPAR) 15 mg Tablet TAKE 2 TABLETS EVERY MORNING AND IN THE EVENING 4 9 Active Family History Medical History Relation Name Comments Colon Cancer Neg Hx Social History Tobacco Use Types Packs/Day Years Used Date Smoking Tobacco: Every Day Cigarettes Smokeless Tobacco: Never Alcohol Use Standard Drinks/Week Comments Yes 0 (1 standard drink = 0.6 oz pur e alcohol) Sex and Gender Information Value Date Recorded Sex Assigned at Not on file Legal Sex Male 1:53 PM CHIEF EXECUTIVE OFFICER Gender Identity Not on file Sexual Orientation Not on file Last Filed Vital Signs Vital Sign Reading Time Taken Comments Blood Pressure 156/74 10/16/2019 10:59 AM CHIEF EXECUTIVE OFFICER Pulse 100 10/16/2019 10:59 AM CHIEF EXECUTIVE OFFICER Temperature - - Respiratory Rate - - Oxygen Saturation - - Inhaled Oxygen Concentration - - Weight 65.3 kg (144 lb) 12/28/2019 10:17 AM CHIEF EXECUTIVE OFFICER Height 180.3 cm (5' 11 ) 12/28/2019 10:17 AM CHIEF EXECUTIVE OFFICER Body Mass Index 20.08 12/28/2019 10:17 AM CHIEF EXECUTIVE OFFICER Plan of Treatment Health Maintenance Due Date Last Done Comments DTAP/TDAP/TD VACCINES (1 - Tdap) 1974 COLORECTAL SCREENING 2000 Colorectal Cancer Screening 2000 FIT-DNA Q 3 years 2000 FIT/FOBT Q 1 year 2000 Flex Sig/CT Colonography Q 5 years 2000 PNEUMOCOCCAL VACCINE 50+ YEARS (1 of 1 - PCV) 01/11/20 05 ZOSTER VACCINE (1 of 2) 2005 INFLUENZA VACCINE (#1) 2025 RSV VACCINE (60+ or ) (1 - 1-dose 75+ series) 2030 Care Teams Presidential Support Specialist Relationship Specialty Start Date End Date Wendy Nuñez PA [address] [place] [address] [address] [place] [address] PCP - General Physician Lead Neurodiagnostic Technologist 10/16/19
--- OUTSIDE RECORDS SUMMARY | 2025-06-24 11:40 | XMS_ITS | Clinical Summary ---
Author Organization [facility] [place] Address [address] [place] [address] Phone Care Team Providers Care Cardiopulmonary Technologist Name Role Phone Wendy Nuñez Primary Care Provider [phone] Allergies No known active allergies Medications tamsulosin (FLOMAX) 0.4 mg capsule TAKE 2 CAPSULES BY MOUTH DAILY 5 9 Active JANUVIA 100 mg Tablet TAKE 1 TABLET EVERY DAY 3 9 Active pravastatin (PRAVACHOL) 80 mg tablet Take 80 mg by mouth daily at bedtime. 3 9 Active mirtazapine (REMERON) 15 mg tablet TAKE 1 TABLET BY MOUTH EVERYDAY AT BEDTIME 2 9 Active metFORMIN (GLUCOPHAGE) 850 mg tablet TAKE 1 TABLET BY MOUTH THREE TIMES DAILY 0 9 Active gabapentin (NEURONTIN) 300 mg capsule TAKE 1 CAPSULE BY MOUTH THREE TIMES A DAY 3 9 Active finasteride (PROSCAR) 5 mg tablet TAKE 1 TABLET EVERY NIGHT AT BEDTIME 3 9 Active busPIRone (BUSPAR) 15 mg Tablet TAKE 2 TABLETS EVERY MORNING AND IN THE EVENING 4 9 Active buPROPion HCl (WELLBUTRIN XL) 300 mg Extended Release 24 hour tablet TAKE 1 TABLET BY MOUTH EVERY DAY IN THE MORNING 2 9 Active ARIPiprazole (ABILIFY) 10 mg tablet TAKE 1 TABLET BY MOUTH EVERY DAY IN THE MORNING 2 9 Active PEG-Electrolyte Soln (NULYTELY) 420 g Recon Soln See instructions 4000 mL 0 Active Active Problems No known active problems Family History Medical History Relation Name Comments Colon Cancer Neg Hx Social History Tobacco Use Types Packs/Day Years Used Date Smoking Tobacco: Every Day Cigarettes Smokeless Tobacco: Never Alcohol Use Standard Drinks/Week Comments Yes 0 (1 standard drink = 0.6 oz pur e alcohol) occassional beer Sex and Gender Information Value Date Recorded Sex Assigned at Not on file Legal Sex Male 4:32 PM CDT Gender Identity Not on file Sexual Orientation Not on file Occupation Industry Job Start Date Job End Date Not on file Not on file Not on file Not on file Last Filed Vital Signs Vital Sign Reading Time Taken Comments Blood Pressure 156/74 10/16/2019 10:59 AM BAND SPLICER Pulse 100 10/16/2019 10:59 AM BAND SPLICER Temperature - - Respiratory Rate - - Oxygen Saturation - - Inhaled Oxygen Concentration - - Weight 65.3 kg (144 lb) 12/28/2019 10:17 AM BAND SPLICER Height 180.3 cm (5' 11 ) 12/28/2019 10:17 AM BAND SPLICER Body Mass Index 20.08 12/28/2019 10:17 AM BAND SPLICER Plan of Treatment Health Maintenance Due Date Last Done Comments DTAP/TDAP/TD VACCINES (1 - Tdap) 1974 PNEUMOCOCCAL VACCINE 50+ YEARS (1 of 2 - PCV) 01/11/19 74 COLORECTAL SCREENING 2000 Colorectal Cancer Screening 2000 FIT-DNA Q 3 years 2000 FIT/FOBT Q 1 year 2000 Flex Sig/CT Colonography Q 5 years 2000 ZOSTER VACCINE (1 of 2) 2005 INFLUENZA VACCINE (#1) 2025 RSV VACCINE (60+ or ) (1 - 1-dose 75+ series) 2030 Insurance MEDICAID [place] Care Teams Cardiopulmonary Technologist Relationship Specialty Start Date End Date Wendy Nuñez PA [address] [place] [address] 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
[2025-06-24 11:45] VITALS: BP 117/69; PULSE 90; RESP 18; TEMP 36.8; O2SAT 99; BMI 22.1
--- NOTE | 2025-06-24 11:46 | XRR_ITS ---
PROCEDURE INFORMATION: Exam: XR Chest Exam date and time: 06/24/2025 11:47 AM Age: 70 years old Clinical indication: Other: Weakness; Prior surgery; Surgery date: 6+ months; Surgery type: RT lung cardiac stents TECHNIQUE: Imaging protocol: Radiologic exam of the chest. Views: 1 view. COMPARISON: CT chest w con* [id number] 06/06/2025 10:41 AM FINDINGS: Lungs: Lungs appear free of acute disease. Chronic reticular changes and probable COPD. Pleural spaces: Unremarkable. No pleural effusion. No pneumothorax. Heart/Mediastinum: Unremarkable. No cardiomegaly. Bones/joints: Unremarkable. XR/XR chest 1V portable [id number] IMPRESSION: Nonacute findings.
--- NOTE | 2025-06-24 11:50 | W.ED.GENADLT ---
HPI - General Adult General: Chief complaint: General Medical Stated complaint: low bp Time Seen by Provider: 06/24/25 11:35 Source: patient Mode of arrival: ambulatory Limitations: no limitations History of Present Illness: 70-year-old male states that he took his blood pressures morning and it was running low he states been running in the 70s states he has had pneumonia before along with UTI and was concerned he was getting sick he states he feels normal is had some nausea denies any severe pain denies any fevers. Denies any cough or shortness of breath Associated symptoms: Reports nausea; Deny chest pain, dyspnea, headache(s), rash or vomiting Related Data Home Medications ?Medication ?Instructions ?Recorded ?Confirmed ascorbic acid (vitamin C) 500 mg 500 mg PO DAILY 12/11/19 06/19/25 capsule finasteride 5 mg tablet 5 mg PO QAM 12/11/19 06/19/25 gabapentin 300 mg capsule 300 mg PO TID 12/11/19 06/19/25 tamsulosin 0.4 mg capsule 0.4 mg PO BEDTIME 12/11/19 06/19/25 docusate sodium 100 mg tablet 100 mg PO BID PRN Constipation 06/29/21 06/19/25 ferrous sulfate 325 mg (65 mg 325 mg PO QAM 07/01/22 06/19/25 iron) tablet metformin 1,000 mg tablet 1,000 mg PO BID 06/13/23 06/19/25 budesonide 160 mcg-glycopyr 9 2 inh inhalation BID 12/26/23 06/19/25 mcg-formot 4.8 mcg/actuation HFA inhaler (Breztri Aerosphere) cyanocobalamin (vitamin B-12) 1,000 mcg IM Q30D 01/24/24 06/19/25 1,000 mcg/mL injection solution aspirin 81 mg tablet,delayed 81 mg PO QAM 02/24/24 06/19/25 release clopidogrel 75 mg tablet 75 mg PO QAM 02/24/24 06/19/25 pravastatin 80 mg tablet 80 mg PO BEDTIME 02/24/24 06/19/25 prednisolone acetate 1 % eye 1 drp ophthalmic (eye) QID 02/24/24 06/19/25 drops,suspension dapagliflozin propanediol 10 mg 10 mg PO DAILY 10/22/24 06/19/25 tablet (Farxiga) metoclopramide HCl 5 mg tablet 5 mg PO TID 12/04/24 06/19/25 albuterol sulfate 90 mcg/actuation 2 puff inhalation Q4H PRN 04/06/25 06/19/25 aerosol inhaler (Ventolin HFA) Shortness Of Breath diclofenac sodium 1 % topical gel 4 g topical QID PRN Pain 04/06/25 06/19/25 insulin glargine 100 unit/mL (3 6 unit SUBCUT BEDTIME 04/06/25 06/19/25 mL) subcutaneous pen (Lantus Solostar U-100 Insulin) pantoprazole 40 mg tablet,delayed 40 mg PO BID 04/06/25 06/19/25 release Previous Rx's ?Medication ?Instructions ?Recorded nitroglycerin 0.4 mg sublingual See Rx Instructions .Route 03/13/24 tablet .COMPLEX #25 tabs pentoxifylline 400 mg 400 mg PO TID #90 tabs 06/28/24 tablet,extended release Diabetic shoes with 3 sets of #1 ea 11/06/24 insoles aripiprazole 10 mg tablet (Abilify) 10 mg PO .morning #90 tabs 06/11/25 buspirone 30 mg tablet 30 mg PO BID #180 tabs 06/11/25 mirtazapine 30 mg tablet 30 mg PO BEDTIME #90 tabs 06/11/25 Allergies Allergy/AdvReac Type Severity Reaction Status Date / Time No Known Allergies Allergy Verified 06/19/25 14:58 Review of Systems Const: Denies: fever(s), chills, body aches or change in appetite ENMT: Denies: throat pain or dental pain Card: Denies: chest pain Resp: Denies: dyspnea GI: Reports: nausea; Denies: abdominal pain, vomiting or diarrhea : Denies: dysuria Musc: Denies: neck pain or back pain Skin/Breast: Denies: rash Neuro: Denies: headache(s) PFSH ED PFSH: Medical History Proctocolitis History of MRSA infection GERD (gastroesophageal reflux disease) Peripheral neuropathy Type 2 diabetes mellitus Psychiatric care Anemia Peripheral arterial disease COPD (chronic obstructive pulmonary disease) Dyslipidemia Essential hypertension Nicotine dependence, cigarettes, uncomplicated Schizoaffective disorder, depressive type BPH with obstruction/lower urinary tract symptoms Surgical History History of coronary artery stent placement History of eye surgery x3 History of surgery on arm Multiple procedures on the right arm related to MRSA infection H/O foot surgery x 2 for diabetic foot ulcer H/O colonoscopy yrs ago H/O esophagogastroduodenoscopy Status post femoral-popliteal bypass surgery Left femoropopliteal bypass in 2013 with redo bypass in 2013 S/P angioplasty Angioplasty with stent placement to the right leg Family History Family/Other Stroke Cancer Diabetes Hypertension Unknown Cancer Father , at age 59 Alcoholic Mother Lung disease Stroke Denies family history of Anesthesia complication Bleeding disorder Social History Smoking and tobacco/nicotine status: former use of tobacco/nicotine Alcohol intake: former Substance/Drug Use: never Household members: other Details: room mate Marital status: Current occupational status: disabled Current gender identity: Male Physical Exam Const: COMMON NORMALS: no acute distress, patient oriented x3 and healthy appearing HENMT: COMMON NORMALS: normocephalic and atraumatic HEAD & SCALP: normocephalic and atraumatic Eye: COMMON NORMALS: Equal, round and reactive pupils present and EOMs intact bilaterally PUPIL: Yes Equal, round and reactive pupils present Neck/C-Spine: COMMON NORMALS: full ROM and supple Chest: COMMONS NORMALS: normal inspection of the chest and normal palpation of entire chest wall Resp: COMMON NORMALS: normal respiratory effort, No retractions, No use of accessory muscles and clear to auscultation bilaterally AUSCULTATION: clear to auscultation bilaterally Cardio: COMMON NORMALS: regular rate, regular rhythm and No murmurs present (Cardio) RATE: regular rate RHYTHM: regular rhythm GI: COMMON NORMALS: Normal to inspection, nondistended, normoactive bowel sounds present, Soft to palpation, non-tender and no masses PALPATION: Yes Soft to palpation Extremity: COMMON NORMALS: normal to inspection and full ROM Neuro: COMMON NORMALS: patient oriented x3, moves all extremities and no focal motor deficits Psych: COMMON NORMALS: mental status grossly normal, Normal thought process present and cooperative THOUGHT PROCESS: Normal thought process present Skin: COMMON NORMALS: no rashes or lesions noted and no wounds GENERAL SKIN EXAM: no rashes or lesions noted Course Vital Signs: Vital signs: Vital Signs Temperature 98.3 F 06/24/25 11:45 Pulse Rate 84 06/24/25 12:57 Respiratory Rate 18 06/24/25 11:45 Blood Pressure 137/74 06/24/25 12:57 Pulse Oximetry 100 06/24/25 12:57 Oxygen Delivery Me thod Room Air 06/24/25 12:57 MDM - General Adult Medical Decision Making Patient presents with hypotension at home this morning his blood pressure here has been normal he states he feels fine he has no medical complaints blood work here is normal as well he stable for discharge follow-up PCP return if worsening. Medical Records I reviewed the patient's medical records. Lab Data I reviewed the patient's lab results. 06/24/25 11:56 06/24/25 11:56 Laboratory Results WBC 6.92 10^3/uL (3.29-11.43) 06/24/25 11:56 RBC 3.35 10^6/uL (3.85-5.65) L 06/24/25 11:56 Hgb 9.00 g/dL (11.27-16.99) L 06/24/25 11:56 Hct 28.9 % (37-53) L 06/24/25 11:56 MCV 86.3 fl (82-101) 06/24/25 11:56 MCH 26.9 pg (27-33) L 06/24/25 11:56 MCHC 31.1 g/dL (30-55) 06/24/25 11:56 RDW 16.1 % (12.1-15.1) H 06/24/25 11:56 Plt Count 351 10^3/cmm (157-399) 06/24/25 11:56 MPV 8.9 fL (7.4-10.4) 06/24/25 11:56 Neut % (Auto) 72.6 % 06/24/25 11:56 Lymph % (Auto) 13.4 % 06/24/25 11:56 Steele % (Auto) 5.5 % 06/24/25 11:56 Eos % (Auto) 6.9 % 06/24/25 11:56 Baso % (Auto) 0.9 % 06/24/25 11:56 Neut # (Auto) 5.02 10^3/uL (1.8-7.7) 06/24/25 11:56 Lymph # (Auto) 0.9 10^3/uL (0.8-4.8) 06/24/25 11:56 Steele # (Auto) 0.4 10^3/uL (0.2-0.9) 06/24/25 11:56 Eos # (Auto) 0.5 10^3/uL (0.0-0.8) 06/24/25 11:56 Baso # (Auto) 0.1 10^3/uL (0.0-0.1) 06/24/25 11:56 Nucleated RBC % (auto) 0 % 06/24/25 11:56 Nucleated RBCs # 0.0 /100WBC 06/24/25 11:56 Sodium 132 mmol/L (136-145) L 06/24/25 11:56 Potassium 4.7 mmol/L (3.5-5.1) 06/24/25 11:56 Chloride 95 mmol/L (98-107) L 06/24/25 11:56 Carbon Dioxide 23 mmol/L (22-29) 06/24/25 11:56 Anion Gap 18.7 (5-19) 06/24/25 11:56 BUN 28 mg/dL (8-23) H 06/24/25 11:56 Creatinine 1.3 mg/dL (0.7-1.2) H 06/24/25 11:56 GFR Calculation 54.6 mL/min (90-130) L 06/24/25 11:56 Glucose 259 mg/dL (65-115) H 06/24/25 11:56 Calculated Osmolality 288 mOsm/kg (285-295) 06/24/25 11:56 Lactic Acid 1.6 mmol/L (0.5-2.2) 06/24/25 11:56 Calcium 8.9 mg/dL (8.5-10.5) 06/24/25 11:56 Total Bilirubin 0.2 mg/dL (0.15-1.2) 06/24/25 11:56 AST 19 U/L (0-40) 06/24/25 11:56 ALT 19 U/L (0-41) 06/24/25 11:56 Alkaline Phosphatase 100 U/L (40-130) 06/24/25 11:56 Total Protein 7.5 g/dL (6.6-8.7) 06/24/25 11:56 Albumin 4.0 g/dL (3.5-5.2) 06/24/25 11:56 Globulin 3.5 g/dL (1.3-4.6) 06/24/25 11:56 Urine Color Yellow (Yellow) 06/24/25 12:54 Urine Appearance Clear (CLEAR) 06/24/25 12:54 Urine pH 5.5 (5-7) 06/24/25 12:54 Ur Specific [place] 1.028 (1.005-1.030) 06/24/25 12:54 Urine Protein 1+ (Negative) A 06/24/25 12:54 Urine Glucose (UA) 2+ (Normal) H 06/24/25 12:54 Urine Ketones Negative (Negative) 06/24/25 12:54 Urine Blood Negative (Negative) 06/24/25 12:54 Urine Nitrate Negative (Negative) 06/24/25 12:54 Urine Bilirubin Negative (Negative) 06/24/25 12:54 Urine Urobilinogen 1.0 mg/dL (Negative) 06/24/25 12:54 Ur Leukocyte Esterase Negative (Negative) 06/24/25 12:54 Urine RBC 0-2 /hpf (0-2) 06/24/25 12:54 Urine WBC 0-5 /hpf (0-5) 06/24/25 12:54 Ur Squamous Epith Cells 0-5 /hpf (0-5) 06/24/25 12:54 Amorphous Sediment Not Reportable 06/24/25 12:54 Urine Bacteria None seen /hpf (NONE) 06/24/25 12:54 Hyaline Casts 0.81 /lpf 06/24/25 12:54 All radiology interpretation(s) finalized by discharge EKG Data EKG 1: I personally reviewed and interpreted this EKG as follows: EKG interpretation date: 06/24/25 EKG interpretation time: 12:53 Interpretation: nsr hr [address] elevation qrs 103 qtc 422 Discharge Plan Discharge Patient Disposition: Home Clinical Impression: Hypotension Condition: Stable Prescriptions: No Action gabapentin 300 mg capsule 300 mg PO TID tamsulosin 0.4 mg capsule 0.4 mg PO BEDTIME ascorbic acid (vitamin C) 500 mg capsule 500 mg PO DAILY finasteride 5 mg tablet 5 mg PO QAM ferrous sulfate 325 mg (65 mg iron) tablet 325 mg PO QAM Breztri Aerosphere 160-9-4.8 mcg/actuation HFA aerosol inhaler 2 inh inhalation BID pentoxifylline 400 mg tablet extended release 400 mg PO TID Qty: 90 4RF Rx Instructions: must administer with a meal/food dapagliflozin propanediol [Farxiga] 10 mg tablet 10 mg PO DAILY aripiprazole [Abilify] 10 mg tablet 10 mg PO .morning Qty: 90 2RF Rx Instructions: Take one tablet every morning buspirone 30 mg tablet 30 mg PO BID Qty: 180 2RF Rx Instructions: Take one tablet twice per day mirtazapine 30 mg tablet 30 mg PO BEDTIME Qty: 90 2RF Rx Instructions: Take one tablet at bedtime metformin 1,000 mg tablet 1,000 mg PO BID (DME) Diabetic shoes with 3 sets of insoles See Rx Instructions .Route .MEDSUPPLY Qty: 1 0RF Rx Instructions: As directed by Dot Kuhn metoclopramide HCl 5 mg tablet 5 mg PO TID nitroglycerin 0.4 mg tablet, sublingual See Rx Instructions .ROUTE .COMPLEX Qty: 25 2RF Dose Instruction: DISSOLVE ONE TABLET UNDER THE TONGUE EVERY 5 MINUTES NEEDED FOR CHEST PAIN. DO NOT EXCEED A TOTAL OF 3 DOSES IN 15 MINUTES Rx Instructions: DISSOLVE ONE TABLET UNDER THE TONGUE EVERY 5 MINUTES NEEDED FOR CHEST PAIN. DO NOT EXCEED A TOTAL OF 3 DOSES IN 15 MINUTES docusate sodium 100 mg Tablet 100 mg PO BID PRN (Reason: Constipation) prednisolone acetate 1 % drops,suspension 1 drp ophthalmic (eye) QID Rx Instructions: left eye clopidogrel 75 mg tablet 75 mg PO QAM aspirin 81 mg tablet,delayed release (DR/EC) 81 mg PO QAM pravastatin 80 mg tablet 80 mg PO BEDTIME cyanocobalamin (vitamin B-12) 1,000 mcg/mL solution 1,000 mcg IM Q30D pantoprazole 40 mg tablet,delayed release (DR/EC) 40 mg PO BID albuterol sulfate [Ventolin HFA] 90 mcg/actuation HFA aerosol inhaler 2 puff INHALATION Q4H PRN (Reason: Shortness Of Breath) insulin glargine [Lantus Solostar U-100 Insulin] 100 unit/mL (3 mL) insulin pen 6 unit SUBCUT BEDTIME diclofenac sodium 1 % gel 4 g TOPICAL QID PRN (Reason: Pain) Discharge Orders: Discharge ED (Routine); Ordered 06/24/25 Ordered By: Silva Evans Referrals: Diego Glass MD [Primary Care Provider, Family Practice] - 4-7 days Discharge Activity: Resume usual activity Patient Instructions: Hypotension (ED) Print Language: French Coding Level of Care Code ED Emergency Vehicle Operations 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
[2025-06-24 12:04] LABS: Hematocrit 28.9 % (37-53); Hemoglobin 9.00 g/dL (11.27-16.99); Mean Corpuscular HGB Conc 31.1 g/dL (30-55); Mean Corpuscular Hemoglobin 26.9 pg (27-33); Mean Corpuscular Volume 86.3 fl (82-101); Nucleated Red Blood Cells % 0 %; Platelet Count 351 10^3/cmm (157-399); Red Blood Count 3.35 10^6/uL (3.85-5.65); White Blood Count 6.92 10^3/uL (3.29-11.43)
[2025-06-24 12:05] VITALS: BP 90/59; PULSE 88; O2SAT 98
[2025-06-24 12:25] LABS: Alanine Aminotransferase 19 U/L (0-41); Albumin Level 4.0 g/dL (3.5-5.2); Alkaline Phosphatase 100 U/L (40-130); Anion Gap 18.7 (5-19); Aspartate Amino Transferase 19 U/L (0-40); Blood Urea Nitrogen 28 mg/dL (8-23); Calcium 8.9 mg/dL (8.5-10.5); Carbon Dioxide 23 mmol/L (22-29); Chloride 95 mmol/L (98-107); Creatinine Clr Calc Pharmacy 52.0779; Globulin 3.5 g/dL (1.3-4.6); Glucose 259 mg/dL (65-115); Osmolality Calculated 288 mOsm/kg (285-295); Potassium 4.7 mmol/L (3.5-5.1); Sodium 132 mmol/L (136-145); Total Protein 7.5 g/dL (6.6-8.7)
[2025-06-24 12:26] LABS: Lactic Sepsis W/Reflex 1.6 mmol/L (0.5-2.2)
--- NOTE | 2025-06-24 12:53 | ECG_ITS ---
[facility] Date: 2025-06-24 Pat Name: Hussein Fitch Department: Room: Gender: Male Stamp Analyst: : 1955 Requested By: Silva Evans Order Number: [id number] Avinash MD: Kashif Mejias M.D. Measurements Intervals [place] Rate: 81 P: 62 CO: 186 QRS: 90 QRSD: 103 T: 74 QT: 385 QTc: 449 Interpretive Statements SINUS RHYTHM Compared to ECG 10/03/2024 09:50:34 No significant changes Electronically Signed On 06-27-2025 10:28:16 CDT by Kashif Mejias M.D. [email or web address]
[2025-06-24 12:57] VITALS: BP 137/74; PULSE 84; O2SAT 100
[2025-06-24 13:12] LABS: Glucose Urine UA 2+ (Normal); Nitrate Urine Negative (Negative); Specific Gravity, Urine 1.028 (1.005-1.030)
[2025-06-24 13:15] LABS: Add Urine Microscopic? YES
[2025-06-24 13:43] VITALS: BP 127/71; PULSE 84; O2SAT 98
== END 2025-06-24 13:35 | disposition home or self-care (01) ==
PROVIDERS: Emergency Provider Emergency Medicine; PCP Family Medicine
DX: I95.9 Hypotension, unspecified (principal); Z79.4 Long term (current) use of insulin; Z79.02 Long term (current) use of antithrombotics/antiplatelets; Z79.82 Long term (current) use of aspirin; Z87.891 Personal history of nicotine dependence; E11.42 Type 2 diabetes mellitus with diabetic polyneuropathy; J44.9 Chronic obstructive pulmonary disease, unspecified; E78.5 Hyperlipidemia, unspecified; I10 Essential (primary) hypertension
CPT/HCPCS: 71045; 80053; 81001; 83605; 85025; 93005; 96360; 96361; 99285; J7030

== ENCOUNTER 2025-06-25 13:52 | Oncology outpatient (recurring) (ONCR) | payer MEDICARE, MEDICAID, SELFPAY ==
[2025-03-20 15:38] VITALS: BP 132/74; BMI 18.8
--- NOTE | 2025-06-25 14:15 | USCV_ITS ---
Hussein Fitch Age: 70 Gender: M : 1955 Exam Date: 06/25/2025 14:20 Ordering Phys: Kashif Mejias M.D ([email or web address]) Technologist: SAGAR Exam Location: [facility] Indication: SoB BP: 110 / 60 HR: 77 Rhythm: Sinus Technical Quality: Adequate MEASUREMENTS (Male / Female) Normal Values 2D ECHO LV Diastolic Diameter PLAX 5.1 cm 4.2 - 5.9 / 3.9 - 5.3 cm IVS Diastolic Thickness 1.0 cm 0.6 - 1.0 / 0.6 - 0.9 cm IVS Systolic Thickness 2.0 cm LVPW Diastolic Thickness 1.2 cm 0.6 - 1.0 / 0.6 - 0.9 cm LVPW Systolic Thickness 1.0 cm LVOT Diameter 2.0 cm LV Ejection Fraction 2D Teich 57.2 % LV Ejection Fraction MOD 4C 66.3 % LV Ejection Fraction MOD 2C 63.9 % LV Ejection Fraction 2C AL 64.6 % LA Diameter 3.2 cm RA Systolic Volume 4C AL 48.9 ml RA Systolic Volume 4C MOD 40.6 ml LA Sys Volume AL 48.1 cm cubed LA Sys Volume Index AL 28.1 cm cubed/m squared Aorta at Sinotubular Diameter 2.5 cm IVC Diameter 1.9 cm M-MODE LA Ao Ratio MM 1.2 AV Cusp Separation MM 1.7 cm DOPPLER AV Peak Velocity 111.0 cm/s LVOT Peak Velocity 106.0 cm/s AV Area Cont Eq vti 3.7 cm squared AV Area Cont Eq pk 3.1 cm squared MV Peak Velocity 98.0 cm/s MV Area PHT 6.6 cm squared Mitral E to A Ratio 0.8 TR Peak Velocity 184.0 cm/s TR Peak Gradient 13.5 mmHg TV Peak E Velocity 72.0 cm/s PV Peak Velocity 95.0 cm/s FINDINGS Left Ventricle Normal left ventricular size, systolic function and wall thickness, with no regional wall motion abnormalities. Left ventricular ejection fraction is estimated at 60 %. Grade I/IV diastolic dysfunction (abnormal relaxation filling pattern), normal to mildly elevated filling pressures. Right Ventricle The right ventricle is normal in size and function. Right Atrium The right atrium is normal in size. Left Atrium Moderately increased left atrial size. Mitral Valve Mildly thickened mitral valve. No mitral valve stenosis. Mild mitral valve regurgitation. Aortic Valve Moderate aortic valve calcification. No aortic valve stenosis. Mild aortic valve regurgitation. Tricuspid Valve Structurally normal tricuspid valve without significant stenosis or regurgitation. Pulmonary artery systolic pressure is normal. Pulmonic Valve Structurally normal pulmonic valve without significant stenosis. There is no pulmonic regurgitation. Pericardium Normal pericardium without effusion. Aorta Normal ascending aorta dimension. IVC The inferior vena cava appears normal. CONCLUSIONS Normal left ventricular size, systolic function and wall thickness, with no regional wall motion abnormalities. Left ventricular ejection fraction is estimated at 60 %. Grade I/IV diastolic dysfunction (abnormal relaxation filling pattern), normal to mildly elevated filling pressures. Moderately increased left atrial size. Mildly thickened mitral valve. No mitral valve stenosis. Mild mitral valve regurgitation. Moderate aortic valve calcification. No aortic valve stenosis. Mild aortic valve regurgitation. There is no pericardial effusion. Right atrial pressure is around 5 mm of mercury. Karina Nichols MD (Electronically Signed) Final Date: 26 June 2025 13:27 S
== END 2025-06-27 23:59 | disposition home or self-care (01) ==
LOC: ONCMED 13:53
PROVIDERS: PCP Family Medicine; Visit Provider Family Medicine
DX: R06.02 Shortness of breath (principal); R93.1 Abnormal findings on diagnostic imaging of heart and coronary circulation; I51.7 Cardiomegaly; I34.0 Nonrheumatic mitral (valve) insufficiency; I35.8 Other nonrheumatic aortic valve disorders; I35.1 Nonrheumatic aortic (valve) insufficiency
CPT/HCPCS: 93306

== ENCOUNTER → 2025-08-13 08:00 | Outpatient (BNVA) | payer MEDICARE, MEDICAID, SELFPAY ==
[2025-08-13 07:43] VITALS: BP 132/74; BMI 18.8
== END ==
PROVIDERS: PCP Family Medicine; Visit Provider Thoracic Surgery (Cardiothoracic Vascular Surgery)
DX: I96 Gangrene, not elsewhere classified (principal); L89.322 Pressure ulcer of left buttock, stage 2

== ENCOUNTER → 2025-08-20 14:21 | Outpatient (BNVA) | payer MEDICARE, MEDICAID, SELFPAY ==
[2025-08-13 07:43] VITALS: BP 132/74; BMI 18.8
== END ==
PROVIDERS: PCP Family Medicine; Visit Provider Thoracic Surgery (Cardiothoracic Vascular Surgery)
DX: I96 Gangrene, not elsewhere classified (principal); L89.322 Pressure ulcer of left buttock, stage 2
CPT/HCPCS: 97597; A6212

== ENCOUNTER → 2025-09-10 12:45 | Outpatient (BNVA) | payer MEDICARE, MEDICAID, SELFPAY ==
[2025-08-27 14:11] VITALS: BP 132/74; BMI 18.8
== END ==
PROVIDERS: PCP Family Medicine; Visit Provider Podiatrist Foot & Ankle Surgery
DX: E11.42 Type 2 diabetes mellitus with diabetic polyneuropathy (principal); L60.3 Nail dystrophy; L84 Corns and callosities; E11.8 Type 2 diabetes mellitus with unspecified complications; I73.9 Peripheral vascular disease, unspecified; Z79.4 Long term (current) use of insulin; Z79.84 Long term (current) use of oral hypoglycemic drugs
CPT/HCPCS: 11056; 11721

== ENCOUNTER → 2025-11-12 12:53 | Outpatient (BNVA) | payer MEDICARE, MEDICAID, SELFPAY ==
[2025-08-27 14:11] VITALS: BP 132/74; BMI 18.8
== END ==
PROVIDERS: PCP Family Medicine; Visit Provider Podiatrist Foot & Ankle Surgery
DX: E11.42 Type 2 diabetes mellitus with diabetic polyneuropathy (principal); L60.3 Nail dystrophy; L84 Corns and callosities; I73.9 Peripheral vascular disease, unspecified; Z79.84 Long term (current) use of oral hypoglycemic drugs; Z79.4 Long term (current) use of insulin
CPT/HCPCS: 11056; 11721

== ENCOUNTER 2025-11-18 14:37 | Emergency (ER) | payer MEDICARE, MEDICAID, SELFPAY ==
[2025-08-27 14:11] VITALS: BP 132/74; BMI 18.8
[2025-11-18 14:41] VITALS: BP 76/38; PULSE 84; RESP 16; TEMP 36.6; O2SAT 94
--- OUTSIDE RECORDS SUMMARY | 2025-11-18 14:44 | XMS_ITS | Data Portability ---
Author Organization [facility] - Kali Arnett [facility] Address [address] [address] Care Team Providers Care Cable Assembler Name Role Phone AGUSTÍN GLASS Primary Care Provider [phone] Assessment Encounter Date Assessment Date Assessment LastModified by Organization Details LastModified Time 09/04/2025 09/04/2025 70-year-old male with a history of type 2 diabetes mellitus presenting for follow-up. The focus of the consultation included maintaining smoking cessation, wheelchair procurement issues, and a planned colonoscopy. Diabetes management remains stable with no new issues reported. Wheelchair Procurement: - Advise patient to explore local supplier options for the wheelchair and resolve provider communication. Upcoming Colonoscopy: - Confirm scheduled colonoscopy on September 17, 2025; provide pre-procedural guidance. [email or web address] Not available 09/04/2025 14:20:51 11/13/2025 11/13/2025 A 70-year-old male with a history of monitored blood glucose presented with severe left hip and radiating leg pain. Physical exam findings are consistent with left hip bursitis. The radiating nature of his pain also suggests a component of iliotibial (IT) band syndrome. The patient has tried conservative measures, including topical cream and Tylenol, with partial relief. A prior course of physical therapy was unsuccessful. Durable Medical Equipment Management: The patient's request for a new mobility chair was denied by insurance as he can only receive one every five years. The patient is arranging to have parts sent to repair his old chair and plans to build a ramp for vehicle transport to improve community access. [email or web address] Not available 11/13/2025 18:00:15 Plan of Treatment Reminders Order Date Submit Date Provider Last Modified By Organization Details Last Modified Time Details Appointments RECHECK 15 2025 01:00P M Agustín Glass MD Not available Not available Not available Lab hemoglobi n A1C/hemog lobin total, QN, blood 2024 025 [facility], [address], [address], [place], [address], 09/04/2025 14:42:26 Referral physical therapist referral 2024 025 [email or web address], [address], [place], [address], 08/15/2025 12:03:15 wound care referral [address] [facility], [address] [place], [address], 08/13/2025 11:33:52 Procedures None recorded. Surgeries None recorded. Imaging None recorded. Medication Orders None recorded. Patient TargetsNo targets recorded. Patient Instructions Encounter Date Encounter Id Patient Instructions Last Modified By Organization Details Last Modified Time 09/04/2025 [id number] - Have your A1c checked in the lab today. - Continue avoiding smoking, and maintain a healthy lifestyle. - Investigate local suppliers in [place] for wheelchair options. - Prepare for your colonoscopy on September 17, 2025, as instructed. - Return for a follow-up appointment in three months. [id number] Not available 09/04/2025 14:20:54 During the visit , we discussed the patient's stable diabetes management, noting his year-long smoking cessation, which is commendable. We addressed ongoing difficulties in obtaining a motorized wheelchair and considered exploring local suppliers in [place]. Scheduled the patient's colonoscopy for September 17, 2025, and ensured he is prepared for the procedure. Advised follow-up in three months for diabetes reassessment and emphasized maintaining healthy lifestyle modifications. [email or web address] Not available 09/04/2025 14:20:54 11/13/2025 [id number] - You have received a steroid injection in your left hip to help with your pain. - This injection may cause your blood sugar levels to be higher than normal for the next couple of days, so please keep an eye on them. - Please let the office know how your pain is progressing after the injection. - Continue with your plan to have your old mobility chair repaired. [email or web address] Not available 11/13/2025 18:00:17 I discussed with the patient that his symptoms of left hip and radiating leg pain are likely due to a combination of hip bursitis and possibly iliotibial band syndrome. Given that previous physical therapy was not successful, we proceeded with his first steroid injection into the left hip. I informed the patient that a potential side effect is a temporary increase in his blood sugar levels over the next couple of days. The patient was advised to monitor his pain and inform us of his progress. We also acknowledged the denial of his request for a new mobility chair and his plans to repair his existing one. [email or web address] Not available 11/13/2025 18:00:19 Reason for Referral Referring Physician: Agustín Glass, [facility], Encounter Date: 07/23/2025 Physical Therapist Referral for Difficulty mobilizing using mobility aids Motorized wheelchair fitting/eval Referring Physician: Agustín Glass [facility], Encounter Date: 08/07/2025 Results Created Date Observation Date Name Description Value Unit Range Abnormal Flag Note LastModifiedBy Organization Detail LastModifiedTime 09/04/2009/04/2025 HBA1C hemaglobin A1C 7.1 4.2-6. 5 high Not Available [facility] [address] [address], [place], [address], 09/04/2025 14:42:26 Result Notes None recorded. 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 3 19:10:23 Type 2 diabetes mellitus without complica tion 908847286 Completed 201902/14/2025 DIABETES MELLITUS ; Recorded 05/07/20 12:36PM by Lita Mccurdy LPN, Historic al Summary; Promoted ; acuity set as *; Removal Reason: Dacia hines [facility] 5 10:27:44 Large prostate 414516096 Active 2020 BPH (BENIGN PROSTATI C HYPERTRO PHY); Recorded 12/29/19 1:17PM by Lita Mccurdy LPN, Historic al Summary; Promoted ; acuity set as *; MALORIE SOSA donyn, [facility] 3 19:10:15 Type 2 diabetes mellitus 08296759 Active 2022 Agustín Glass MD [address] [place] [phone], [facility] 5 14:23:45 Anemia 996732725 Completed 202202/14/2025 Removal Reason: Dacia hines [facility] 5 10:33:44 Benign prostati c hyperpla wilfred 414141233 Active 2022 Agustín Glass MD [address] [place] [phone], [facility] 3 14:05:18 Chronic obstruct yoanna pulmonar y disease 18235165 Active 2022 Agustín Glass MD [address] [place] [phone], [facility] 3 14:05:20 Peripher al arterial disease 706622736 Active 2022 Agustín Glass MD [address] [place] [phone], [facility] 3 14:05:26 Mixed anxiety and depressi ve disorder 535887008 Active 2022 Agustín Glass MD [address] [place] [address], [phone], [facility] 3 14:05:22 Peripher al vascular disease 415082955 Active 2022 Agustín Glass MD [address] [place] [address], [phone], [facility] 3 14:05:27 Neuropat hy 505635434 Completed 202202/14/2025 Removal Reason: Dacia hines [facility] 5 10:32:57 Schizoaf fective disorder 57101348 Active 2022 Agustín Glass MD [address] [place] [address], [phone], [facility] 5 14:23:33 Gastroes ophageal reflux disease 152829476 Active 2022 MALORIE hines [facility] 3 19:10:27 Malaise and fatigue 727366310 Active 2022 MALORIE hines [facility] 3 19:10:09 Smoker 37289667 Completed 202202/14/2025 Removal Reason: Dacia hines [facility], LSusieLSusieCSusie 5 10:30:52 Chronic pain 12405336 Active 2022 Lindsey hines [facility] 5 10:28:50 Unintent ional weight loss 981782058 Completed 202302/14/2025 Lindsey hines [facility] 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 5 10:29:56 Microalb uminuric diabetic nephropa thy 355376846 Active 2023 Lindsey hines [facility] 5 10:30:04 Low blood pressure 27812058 Completed 202302/14/2025 Agustín Glass MD [address] [place], [phone], [facility] 5 11:20:27 Tobacco dependen ce syndrome 27887338 Active 2023 Lindsey hines [facility] 5 10:30:58 Physical decondit ioning 41712159264 102 Active 2023 JULISSA hines, [facility] 14:51:54 Difficul ty mobilizi ng using mobility aids 905518920 Active 2023 Lindsey hines [facility] 5 10:29:32 Dyspnea on exertion 01301112 Active 2023 Lindsey hines [facility] 5 10:29:48 Atypical angina 742296499 Active 2023 Lindsey hines [facility] 5 10:28:07 Acute bacteria l bronchit is 897208943 Completed 202402/14/2025 Lindsey hines [facility] 5 10:27:57 Multiple nodules of lung 637624577 Active 2024 Lindsey hines [facility] 5 10:31:20 Tricuspi d valve regurgit ation 185696830 Active 2024 Agustín Glass MD [address] [place] [address], [phone] [place] [address], L.L.CS[facility]ie 5 15:00:26 Trochant juvencio bursitis of left hip 61991801894 9103 Active 2024 Lindsey hines [facility] 5 12:54:20 CT of chest abnormal 00911503394 066980 Active 2024 Lindsey hines [facility] 5 12:54:29 Acute kidney injury 52740423 Active 2024 Lindsey hines [facility] 12:54:35 Pneumoni a 791654024 Active 2024 Agustín Glass MD [address] [place] [address], [phone], [facility] 04:57:35 Low blood pressure 30809222 Active 2024 Agustín Glass MD [address] [place] [address], [phone], [facility], MarcyCSusie 11:20:26 Wound of skin 690168234 Active 2024 Agustín Glass MD [address] [place] [address], [phone], [facility], Kali 17:45:15 Pressure injury of left buttock stage II Active 2024 Agustín Glass MD [address] [place] [address], [phone], [facility], Kali 17:45:43 Problem Notes None recorded. Procedures Surgical History Date Name Laterality Status Provider Name and Address Organization Details Recorded Time 11/13/20 25 Joint Inj Kenalog- Shoulder, Hip, Knee completed Agustín Glass MD [address] [place] [address], [phone], [facility] 11/16/2025 09:54:58 04/26/20 24 Colonoscopy completed JULISSA FLOWERS [facility] 05/14/2024 17:00:40 01/26/20 24 endoscopy and biopsy of upper gastrointestinal tract completed JULISSA FLOWERS [facility] 01/30/2024 16:12:18 procedure on eye completed Andrade George [facility] 03/12/2025 13:30:48 procedure on lower leg completed Andrade George [facility], LZoe 03/12/2025 13:31:14 procedure on lung completed Lindseyila Mcelroy [facility], LSusieLC[facility]ar 07/23/2025 17:38:00 Imaging Results None recorded. Procedure Notes None recorded. Medical Equipment None Reported. Allergies No known drug allergies Medications Name Sig Start Date Stop Date Status Note LastModified by Organization Details LastModified Time cilostazo l 100 mg tablet Take 1 tablet twice a day by oral route. 09/25 completed Not Available Not Available Not Available doxycycli ne hyclate 100 mg capsule TAKE 1 CAPSULE BY MOUTH TWICE DAILY 09/25 completed Not Available Not Available Not Available nicotine 14 mg/24 hr daily transderm al patch Apply 1 patch every day by transder mal route for 14 days. 09/25 completed Not Available Not Available Not Available azithromy marie 250 mg tablet TAKE 2 TABLETS BY MOUTH TODAY, THEN TAKE 1 TABLET DAILY ON DAYS 2-5 03/12 completed Not Available Not Available Not Available prazosin 1 mg capsule TAKE 2 CAPSULES BY MOUTH AT BEDTIME active Not Available Not Available No t Available sucralfat e 100 mg/mL oral suspensio n TAKE 10 MLS BY MOUTH TWICE DAILY FOR 4 WEEKS 09/25 completed Not Available Not Available Not Available ondansetr on HCl 4 mg tablet Take 1 tablet 3 times a day by oral route as needed for 2 days. 01/25 completed Not Available Not Available Not Available Viagra 50 mg tablet Take 1 tablet every day by oral route as needed. 04/21 completed Not Available Not Available Not Available metformin 850 mg tablet Take 1 tablet 3 times a day by oral route. 06/10 completed Not Available Not Available Not Available clopidogr el 75 mg tablet TAKE 1 TABLET BY MOUTH DAILY active Not Available Not Available No t Available sulfameth oxazole 800 mg-trimet hoprim 160 mg tablet TAKE 1 TABLET BY MOUTH EVERY 12 HOURS FOR 7 DAYS 09/25 completed Not Available Not Available Not Available peg-elect rolyte solution 420 gram oral solution USE DIRECTED FOR COLON PREP TAKE THE 4 LITER CONTAINE R WITH 5 FLAVOR PACKETS 09/25 completed Not Available Not Available Not Available pentoxify lline ER 400 mg tablet,ex tended release TAKE 1 TABLET BY MOUTH TWICE DAILY active Not Available Not Available No t Available acyclovir 800 mg tablet 04/21 completed Not Available Not Available Not Available ondansetr on 8 mg disintegr ating tablet 01/25 completed Not Available Not Available Not Available pantopraz ole 20 mg tablet,de layed release TAKE 1 TABLET BY MOUTH TWICE DAILY 09/25 completed Not Available Not Available Not Available ketorolac 0.5 % eye drops 04/21 completed Not Available Not Available Not Available oxycodone -acetamin ophen 5 mg-325 mg tablet 01/25 completed Not Available Not Available Not Available pravastat in 80 mg tablet TAKE 1 TABLET BY MOUTH EVERY DAY active Not Available Not Available No t Available prednisol one acetate 1 % eye drops,annabelle pension instill 1 drop in LEFT eye ONCE a DAY active Not Available Not Available No t Available metoclopr amide 5 mg tablet TAKE 1 TABLET BY MOUTH THREE TIMES DAILY with meals active Not Available Not Available No t Available lidocaine HCl 4 % (40 mg/mL) mucosal solution Take 4 applicat ions 4 times a day by mucous route as needed. 01/25 completed Not Available Not Available Not Available tamsulosi n 0.4 mg capsule take 1 capsule BY MOUTH EVERY DAY active Not Available Not Available No t Available OneTouch Ultra Test strips USE TO test blood sugar TWICE DAILY active Not Available Not Available No t Available doxycycli ne monohydra te 100 mg capsule TAKE 1 CAPSULE BY MOUTH TWICE DAILY FOR 10 DAYS 09/25 completed Not Available Not Available Not Available pantopraz ole 40 mg tablet,de layed release TAKE ONE TABLET BY MOUTH TWICE DAILY active Not Available Not Available No t Available cyanocoba juan (vit B-12) 1,000 mcg/mL injection solution inject 1ml SUBCUTAN EOUSLY ONCE monthly active Not Available Not Available No t Available mirtazapi ne 30 mg tablet TAKE 1 TABLET BY MOUTH AT BEDTIME active Not Available Not Available No t Available buspirone 30 mg tablet TAKE 1 TABLET BY MOUTH TWICE DAILY active Not Available Not Available No t Available metformin 1,000 mg tablet TAKE 1 TABLET BY MOUTH TWICE DAILY active Not Available Not Available No t Available tobramyci n 0.3 % eye drops INSTILL ONE DROP into right eye EVERY 72 hours active Not Available Not Available No t Available lisinopri l 10 mg tablet Take 1 tablet every day by oral route. 04/21 completed Not Available Not Available Not Available nicotine 21 mg/24 hr daily transderm al patch Apply 1 patch every day by transder mal route for 14 days. 09/25 completed Not Available Not Available Not Available BD Luer-Rios Syringe 3 mL 25 gauge x 1 ADMINIST ER DIRECTED WITH VITAMIN B12 INJECTIO N active Not Available Not Available No t Available nitroglyc bg 0.4 mg sublingua l tablet DISSOLVE 1 TABLET UNDER THE TONGUE EVERY 5 MINUTES NEEDED FOR CHEST PAIN. DO NOT EXCEED A TOTAL OF 3 DOSES IN 15 MINUTES. active Not Available Not Available No t Available gabapenti n 300 mg capsule take 1 capsule BY MOUTH THREE TIMES DAILY active Not Available Not Available No t Available omeprazol e 20 mg capsule,d elayed release Take 1 capsule every day by oral route. 09/25 completed Not Available Not Available Not Available furosemid e 20 mg tablet TAKE 1 TABLET BY MOUTH ONCE DAILY AT 9 AM 07/07 completed Not Available Not Available Not Available mirtazapi ne 15 mg tablet at bedtime 10/24 completed 0; Recorded 12/24/19 20 8:02AM by Lita Mccurdy LPN, Office Visit; Not Available Not Available Not Available levofloxa marie 500 mg tablet 01/25 completed Not Available Not Available Not Available albuterol sulfate HFA 90 mcg/actua tion aerosol inhaler INHALE TWO PUFFS BY MOUTH EVERY 6 HOURS NEEDED FOR SHORTNES S OF BREATH OR WHEEZING active Not Available Not Available No t Available ondansetr on 4 mg disintegr ating tablet 04/21 completed Not Available Not Available Not Available fludrocor tisone 0.1 mg tablet 04/21 completed Not Available Not Available Not Available doxycycli ne hyclate 100 mg tablet TAKE 1 TABLET BY MOUTH TWICE A DAY FOR 7 DAYS 01/25 completed Not Available Not Available Not Available docusate sodium 100 mg tablet Take 1 tablet twice a day by oral route as needed. 2024 active Not Available Not Available Not Avai lable finasteri de 5 mg tablet TAKE ONE TABLET BY MOUTH DAILY active Not Available Not Available No t Available amoxicill in 875 mg-potass ium clavulana te 125 mg tablet TAKE 1 TABLET BY MOUTH TWICE DAILY FOR 5 DAYS 06/26 completed Not Available Not Available Not Available nicotine 7 mg/24 hr daily transderm al patch Apply 1 patch every day by transder mal route for 14 days. 12/12 completed Not Available Not Available Not Available buspirone 15 mg tablet TAKE 2 TABLETS BY MOUTH TWICE DAILY (AT 9 AM AND 9 PM) 09/25 completed Not Available Not Available Not Available Laxative (bisacody l) 5 mg tablet,de layed release take PER colon prep instruct ions active Not Available Not Available No t Available Adult Low Dose Aspirin 81 mg tablet,de layed release Take 1 tablet every day by oral route. active Not Available Not Available No t Available cyanocoba juan (vit B-12) 1,000 mcg/mL injection syringe once a week 07/19 completed 1000mcg IM weekly x 4 weeks then monthly vo KM/demetrio /destiny e; Recorded 12/24/19 20 8:02AM by Lita Mccurdy LPN, Office Visit; Refill Quantity : 12; Millilit er; Not Available Not Available Not Available Avodart 0.5 mg capsule Take 1 capsule every day by oral route. 09/25 completed Not Available Not Available Not Available aripipraz ole 10 mg tablet TAKE 1 TABLET BY MOUTH EVERY MORNING active Not Available Not Available No t Available aripipraz ole 15 mg tablet TAKE 1 TABLET BY MOUTH IN THE MORNING 08/14 completed Not Available Not Available Not Available bupropion HCl XL 300 mg 24 hr tablet, extended release 09/25 completed Not Available Not Available Not Available Alcohol Prep Pads 1 as needed for injectio n 01/25 completed Not Available Not Available Not Available omega-3 acid ethyl esters 1 gram capsule TAKE 2 CAPSULES BY MOUTH IN THE MORNING AND 2 CAPSULES BY MOUTH IN THE EVENING. 01/25 completed Not Available Not Available Not Available BuSpar two times daily 07/19 completed 0; Recorded 12/24/19 20 8:02AM by Lita Mccurdy LPN, Office Visit; Not Available Not Available Not Available bupropion HCl daily 07/19 completed 0; Recorded 12/24/19 8:02AM by Lita Mccurdy LPN, Office Visit; Not Available Not Available Not Available cilostazo l two times daily 07/19 completed vo KM/dh; 41746; Recorded 05/14/20 8:28AM by Lita Mccurdy LPN (Authori shanice through Wendy Nuñez PA-C), Refill Request; Refill Quantity : 60; Tablet; Not Available Not Available Not Available Vitamin-C daily 01/25 completed 0; Recorded 12/24/19 8:02AM by Lita Mccurdy LPN, Office Visit; Not Available Not Available Not Available Avodart daily 07/19 completed PT MUST BE SEEN FOR MORE KM/DH; 89379; Recorded 12/29/19 1:17PM by Lita Mccurdy LPN (Authori shanice through Wendy Nuñez PA-C), Historic al Summary; Refill Quantity : 0; Not Available Not Available Not Available aripipraz ole daily 07/19 completed 0; Recorded 12/24/19 8:02AM by Lita Mccurdy LPN, Office Visit; Not Available Not Available Not Available Truetrack Test Strips daily 07/25 completed DX: Diabetes Mellitus E11.9 vo KM/dh /delaney; [id number]; Recorded 12/24/19 8:02AM by Lita Mccurdy LPN (Authori shanice through Wendy Nuñez PA-C), Office Visit; Refill Quantity : 60; Strip; Not Available Not Available Not Available Symbicort 160 mcg-4.5 mcg/actua tion HFA aerosol inhaler Inhale 2 puffs twice a day by inhalati on route as needed. 04/21 completed Not Available Not Available Not Available Symbicort 80 mcg-4.5 mcg/actua tion HFA aerosol inhaler Inhale 2 puffs twice a day by inhalati on route as needed. 06/10 completed Not Available Not Available Not Available FeroSul 325 mg (65 mg iron) tablet TAKE ONE TABLET BY MOUTH EVERY OTHER DAY active Not Available Not Available No t Available insulin glargine (U-100) 100 unit/mL (3 mL) subcutane ous pen Inject 6 units every day by subcutan eous route at bedtime. 2024 active Not Available Not Available Not Avai lable diclofena c 1 % topical gel apply FOUR grams TO affected area FOUR TIMES DAILY active Not Available Not Available No t Available GaviLyte- G 236 gram-22.7 4 gram-6.74 gram-5.86 gram oral solution take PER colon prep instruct ions active Not Available Not Available No t Available Farxiga 10 mg tablet TAKE ONE TABLET BY MOUTH DAILY active Not Available Not Available No t Available ascorbic acid (vitamin C) 500 mg capsule Take 1 capsule every other day by oral route. active Not Available Not Available No t Available Boost High Protein 0.06 gram-1 kcal/mL oral liquid Take 120 mL every day by oral route for 30 days. 09/25 completed Not Available Not Available Not Available Accu-Chek Guide Glucose Meter USE ONCE DAILY AND NEEDED active Not Available Not Available No t Available OneTouch Ultra Blue Test Strip 1 stip 2 times a day 03/13 completed Not Available Not Available Not Available Breztri Aerospher e 160 mcg-9mcg- 4.8mcg/ac tuation HFA aerosol inhaler INHALE TWO PUFFS into lungs TWICE DAILY active Not Available Not Available No t Available Trelegy Ellipta 200 mcg-62.5 mcg-25 mcg powder for inhalatio n INHALE 1 PUFF EVERY DAY active Not Available Not Available No t Available [facility] COVID-19 Antigen Rapid Home Test kit DIRECTED 04/21 completed Not Available Not Available Not Available Vitals Date Recorded Body height Body mass index (BMI) Body weight Body temperature Oxygen saturation Heart rate Systolic And Diastolic Provider Name and Address Organization Details Last Updated DateTime 5 177.8 cm 19.1 kg/m2 02725.7 9 g 97.6 [degF] 96 % 95 /min 122/66 mm[Hg] [facility] 5 16:10:30 Date Recorded Body height Body mass index (BMI) Body weight Body temperature Oxygen saturation Heart rate Respiratory rate Systolic And Diastolic Provider Name and Address Organization Details Last Updated DateTime 5 177.8 cm 18.5 kg/m2 14630.7 g 97.4 [degF] 98 % 92 /min 16 /min 120/72 mm[Hg] Lindsey Mcelroy [facility] 5 17:33:18 Date Recorded Body height Body mass index (BMI) Body weight Oxygen saturation Heart rate Systolic And Diastolic Provider Name and Address Organization Details Last Updated DateTime 5 177.8 cm 19.4 kg/m2 17924.9 7 g 97 % 82 /min 122/65 mm[Hg] Nadira Alext [facility] 5 17:16:50 Date Recorded Body height Body mass index (BMI) Body weight Body temperature Respiratory rate Oxygen saturation Heart rate Systolic And Diastolic Provider Name and Address Organization Details Last Updated DateTime 5 177.8 cm 19.8 kg/m2 70140.7 5 g 97 [degF] 16 /min 98 % 84 /min 128/64 mm[Hg] Lindsey Navi [facility] 5 14:00:15 Date Recorded Body height Body mass index (BMI) Body weight Oxygen saturation Heart rate Respiratory rate Systolic And Diastolic Provider Name and Address Organization Details Last Updated DateTime 5 177.8 cm 20.6 kg/m2 75319.8 1 g 97 % 88 /min 18 /min 130/68 mm[Hg] Jesusita Nixon [facility] 5 17:46:43 Social History Question Answer Notes LastModified by Organizat ion Details LastModified Time Tobacco Smoking Status Former Smoker quit smoking 9 months ago Kerry hines [facility] 07/04/2025 16:15:08 Are You Blind Or Do You Have Difficulty Seeing? No Information not available 10/24/2023 What Is Your Level Of Caffeine Consumption? Occasional Information not available 06/09/2023 Are You Deaf Or Do You Have Serious Difficulty Hearing? No Information not available 10/24/2023 When Did You Quit Smoking? 16+yearssincel astberna Spring 2023 [email or web address] Information not available 07/23/2025 Which Of Your Hands Is Dominant? Right Information not available 10/24/2023 What Was The Date Of Your Most Recent Tobacco Screening? 08/07/2025 [email or web address] Information not available 08/07/2025 What Is Your Current Pack Years? [email or web address] ars [email or web address] Information not available 12/12/2024 What Is Your Relationship Status? Information not available 06/09/2023 At What Age Did You Start Smoking Tobacco? 15 [email or web address] Information not available 07/23/2025 Have You Recently Traveled Abroad? No Information not available 06/09/2023 Do You Have Difficulty Walking Or Climbing Stairs? No Information not available 10/24/2023 Are You Currently In School? No Information not available 06/09/2023 Sex: Unknown Functional Status Question Answer Note LastModified by OrganMy Damn Channel[employer] ion Details LastModified Time Do you use any illicit or recreational drugs? No Information not available 06/09/2023 What is your level of alcohol consumption? None Information not available 06/09/2023 Are you currently employed? No Information not available 06/09/2023 Do you have transportation difficulties? No Information not available 10/24/2023 Are you able to walk independently without assistance or assistive devices? YESASSIST Information not available 10/24/2023 Do you have difficulty doing errands alone? No Information not available 10/24/2023 Are you able to care for yourself independently? No Information not available 10/24/2023 Do you have difficulty dressing, bathing, grooming, or toileting? No Information not available 10/24/2023 Mental Status Question Answer Note LastModified by Organization D etails LastModified Time Do you have difficulty concentrating, remembering or making decisions? No Information no t available 10/24/2023 Family History Relationship Description Onset Age of this Age Resolved Age Notes LastModified by Organization Details LastModified Time Father Alcoholism [email or web address] Not available 06/09/2023 09:25:37 Mother Acute stroke [email or web address] Not availab le 06/09/2023 09:25:51 Medical History No medical history recorded. Immunizations Vaccine Type Date Status Note Provider Nam e and Address Organization Details Recorded Time Influenza, split virus, trivalent, preservative 9 completed JULISSA hines [facility] 08/15/2023 14:03:08 Influenza, split virus, trivalent, preservative 6 completed JULISSA hines [facility] 08/15/2023 14:03:08 Influenza, split virus, trivalent, preservative 3 completed JULISSA hines [facility] 08/15/2023 14:03:08 Influenza, split virus, trivalent, preservative 7 completed JULISSA hines [facility] 08/15/2023 14:03:08 Influenza, split virus, trivalent, preservative 8 completed JULISSA hines [facility] 08/15/2023 14:03:08 Influenza, high-dose, quadrivalent, PF 3 completed JULISSA hines [facility] 08/15/2023 14:03:07 Pneumococcal conjugate PCV20, polysaccharide [id number] conjugate, adjuvant, PF 3 completed JULISSA hines [facility] 08/15/2023 14:03:08 Influenza, high-dose, quadrivalent, PF 2 completed MALORIE hines [facility] 06/08/2023 14:17:50 COVID-19, mRNA, LNP-S, PF, 100 mcg/0.5mL dose or 50 mcg/0.25mL dose 1 completed MALORIE hines [facility] 06/08/2023 14:17:50 COVID-19, mRNA, LNP-S, PF, 100 mcg/0.5mL dose or 50 mcg/0.25mL dose 1 completed MALORIE hines [facility] 06/08/2023 14:17:51 influenza, split (incl. purified surface antigen) 0 completed MALORIESA IAN hines [facility] 06/08/2023 14:17:51 Influenza, split virus, quadrivalent, PF 1 completed MALORIESA IAN hines [facility] 06/08/2023 14:17:51 zoster recombinant 3 completed Not Available [facility] 11/13/2025 17:25:09 Influenza, high-dose, trivalent, PF 5 completed Not Available [facility] 11/13/2025 17:25:09 pneumococcal polysaccharide PPV23 5 completed Not Available [facility] 11/13/2025 17:25:09 Influenza, high-dose, trivalent, PF 5 completed Not Available [facility] 11/13/2025 17:25:09 Past Encounters Encounter ID Performer Location Encounter Start Date Encounter Closed Date Diagnosis/Indication Diagnosis SNOMED-CT Code Diagnosis ICD10 Code Diagnosis IMO Codes Diagnosis Note [id number] Agustín Glass MD [facility] ([facility]) [address] [place] [address] [phone] 5 04/21/2023 11:19:13 04/21/2023 15:46:26 Chronic obstructive pulmonary disease 17386402 J44.9 Given his smoking history he would benefit from triple therapy for his COPD. Benign pro static hyperplasia 916245951 N40.1 controlled on current meds Type 2 kathe betes mellitus 44246725 E11.8 last a1c was 5.7% and he will be due for repeat in June Mixed anxi ety and depressive disorder 396631339 F41.8 stable on current meds. Peripheral vascular disease 268645861 I73.9 has undergone several stent and bypass procedures . Neuropathy 585033147 G62 .9 likely 2/2 PVD and DM. continue gabapentin Anemia 518631078 D64.9 takes iron supplement ation. [id number] Agustín Glass MD [facility] ([facility]) [address] [place] [address] [id number] 5 06/09/2023 16:41:00 06/10/2023 15:32:34 Type 2 diabetes mellitus 33776817 E11.8 Patient likely has increased obstructio n or secondary to the starting Breztri. He will restart his metformin. Follow-up next to have an A1c recheck. Continue to monitor blood sugars at home. Chronic ob structive pulmonary disease 08139296 J44.9 Doing well on Breztri. Neuropathy 386462423 G62 .9 likely 2/2 PVD and DM. continue gabapentin Peripheral vascular disease 259764505 I73.9 Patient is under the care of vascular surgery. Benign pro static hyperplasia 959829051 N40.1 controlled on current meds Mixed anxi ety and depressive disorder 674005609 F41.8 stable on current meds. [id number] JAISON JACQUES [facility] ([facility]) [address] [place] [address] [id number] 5 07/24/2023 14:07:01 07/24/2023 15:50:38 Nausea 147335545 R11.0 Anemia 991620856 D64.9 Explained to patient we have limited lab available today. He is advised to keep his appt tomorrow with his PCP. He reports he sees Dr. Mehta for iron infusions and had one a month or so ago. [id number] Agustín Glass MD [facility] ([facility]) [address] [place] [address] [id number] 5 07/25/2023 12:20:37 07/25/2023 15:37:37 Malaise and fatigue 996800079 R53.83 Chronic ob structive pulmonary disease 75538167 J44.9 Doing well on Breztri. Anemia 422308452 D64.9 takes iron supplement ation. Peripheral vascular disease 825989591 I73.9 Patient is under the care of vascular surgery. Type 2 kathe betes mellitus 77331136 E11.8 Patient's A1c is 6.7. Continue current management . [id number] Agustín Glass MD [facility] ([facility]) [address] [place] [address] [id number] 5 08/15/2023 13:45:42 08/15/2023 14:20:52 Smoker 48994702 F17.200 Patient meets criteria for yearly low-dose CT. We will send an order. Chronic ob structive pulmonary disease 46354667 J44.9 Doing well on Breztri. [id number] Agustín Glass MD [facility] ([facility]) [address] [place] [address] [id number] 5 10/24/2023 13:42:24 10/25/2023 09:34:13 Type 2 diabetes mellitus 46161566 E11.8 Recheck A1c today. Continue current management . Chronic pain 00864329 G8 9.29 Pain managed with current medication s. Chronic ob structive pulmonary disease 78812335 J44.9 Doing well on Breztri. Mixed anxi ety and depressive disorder 381823822 F41.8 stable on current meds. Peripheral vascular disease 672257489 I73.9 Follow-up with vascular surgery. [id number] Agustín Glass MD [facility] ([facility]) [address] [place] [address] [id number] 5 01/25/2024 14:00:28 01/25/2024 15:24:16 Type 2 diabetes mellitus 76285143 E11.8 Continue current management Unintentio nal weight loss 946746113 R63.4 We will proceed with lab work today. Reviewed lab work recommende d by hematology and no further or additional lab work is warranted at this time. We will await colonoscop y and lab results before any further testing or interventi on. Patient has been screened for lung cancer and it was normal. Chronic anemia 721316541 D64.9 Chronic ob structive pulmonary disease 85747342 J44.9 Doing well on Breztri. [id number] Agustín Glass MD [facility] ([facility]) [address] [place] [address] [place] 8[address]-310 5 04/25/2024 11:30:44 04/25/2024 12:19:49 Carotid bruit 655551987 R09.89 Obtain ultrasound for further evaluation . Patient is currently asymptomat ic. [id number] Agustín Glass MD [facility] ([facility]) [address] [place] [address] [id number] 5 04/30/2024 11:39:17 04/30/2024 13:47:03 [id number] Agustín Glass MD [facility] ([facility]) [address] [place] [address] [id number] 05/14/2024 16:50:03 05/14/2024 17:26:40 Type 2 diabetes mellitus 16250927 E11.8 When his increase in protein and diabetes, the patient would benefit from Farxiga. Discussed this medication and the patient was agreeable to start. 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 The patient has had a EGD evaluation and it was normal. Recommend doing a gastric emptying study. 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 The patient is however taking Lasix. Commend stopping the Lasix as the patient is not having falling issues. Hopefully this will help with his blood pressure. Patient was encouraged to continue to monitor his blood pressure at home. [id number] Agustín Glass MD [facility] ([facility]) [address] [place] [address] [id number] 08/20/2024 12:36:23 08/20/2024 14:59:38 Tobacco dependence syndrome 00878648 F17.200 Discussed smoking sensation with the patient. Will proceed with nicotine replacemen t with patches. Physical deconditioning 2228126497 9102 R68.89 Is having significan t weakness in both his extremitie s. This is likely combinatio n of neck and back issues as well as his chronic vascular issues. Will send order for physical therapy and see if we can improve this. Type 2 kathe betes mellitus 73727096 E11.8 When his increase in protein and diabetes, the patient would benefit from Farxiga. Discussed this medication and the patient was agreeable to start. Type 2 kathe betes mellitus without complication 027230276 E11.9 Check A1c and microalbum in today. Chronic ob structive pulmonary disease 95071971 J44.9 Doing well on Breztri. Peripheral vascular disease 528824638 I73.9 Continue with Plavix and interventi on outlined by vascular surgeon. Patient is trying to quit smoking. [id number] Agustín Glass MD [facility] ([facility]) [address] [place] [address] [id number] 5 09/03/2024 12:22:00 09/03/2024 13:04:28 Peripheral vascular disease 631232301 I73.9 This is causing him significan t pain and discomfort with walking. Difficulty mobilizing using mobility aids 882805779 R26.89 Patient does use a cane but this only provides limited benefit as the patient is unable to walk hardly any distance at all. Patient would benefit from immobiliza tion device to help him with his needs such as shopping. Dyspnea on exertion 6084 5006 R06.09 [id number] Agustín Glass MD [facility] ([facility]) [address] [place] [address] [id number] 5 09/10/2024 16:32:42 09/10/2024 17:40:17 Peripheral vascular disease 875968450 I73.9 . Neuropathy 282395381 G62 .9 Chronic ob structive pulmonary disease 51883183 J44.9 [id number] Agustín Glass MD [facility] ([facility]) [address] [place] [address] [id number] 5 09/18/2024 16:25:59 09/18/2024 17:27:21 Atypical angina 913247027 I20.89 Pain at rest that is improving with nitro. Patient is having active chest pain on arrival today. Recommend the patient be seen in the emergency department and the patient was agreeable. [id number] Agustín Glass MD [facility] ([facility]) [address] [place] [address] [id number] 5 12/12/2024 15:24:53 12/12/2024 16:19:53 Acute bacterial bronchitis 913673327 J20.9 Patient has inflammato ry/infecti ous changes noted on CT and given his most recent symptoms we will treat him for atypical lung infections . Dyspnea on exertion 6084 5006 R06.09 Given the patient's multitude of symptoms had dyspnea with exertion we will go ahead and proceed with echocardio gram. The patient does have an upcoming cardiology appointmen t. This will in part evaluate for ATTR CM. Multiple n odules of lung 880292436 R91.[address] results and the patient is having nodules that are changing. Recommend repeat CT in 3 months. Schizoaffe ctive disorder 13541063 F25.9 Chronic ob structive pulmonary disease 56279545 J44.9 Peripheral vascular disease 870609279 I73.9 . Anemia 705487437 D64.9 Type 2 kathe betes mellitus 81396434 E11.8 Difficulty mobilizing using mobility aids 180467277 R26.89 Dependence on enabling machine or device 370021461 Z99.89 Difficulty walking 80515 2002 R26.2 [id number] Agustín Glass MD [facility] ([facility]) [address] [place] [address] [id number] 5 02/15/2025 12:33:48 02/15/2025 13:01:16 Multiple nodules of lung 500491441 R91.8 The patient is due for her 3-month follow-up on his CT next month. Will place order today to get it approved and scheduled. Type 2 kathe betes mellitus 86673666 E11.8 Recommend we do lab work and check A1c microalbum in today. Continue current medication s. Hyperlipid emia screening 956048955 Z13.220 Tricuspid valve regurgitation 708027160 I07.1 Discussed echo results with the patient. The patient has a mild tricuspid valve leak, otherwise echo was unremarkab le. The patient had a good ejection fraction. Patient was reassured by this informatio n. Referral not needed at this time. [id number] Agustín Glass MD [facility] ([facility]) [address] [place] [address] [id number] 5 03/12/2025 14:44:19 03/12/2025 15:16:23 Trochanteric bursitis of left hip 4415320571 49448 M70.62 The patient has signs and symptoms suggestive of trochanter ic bursitis. Will provide diclofenac gel to see if it will help with his pain. Discussed exercises and stretches to do at home. CT of chest abnormal 732 [address] results with the patient and recommenda tions. Pulmonolog y referral is pending. [id number] JAISON BLACK [facility] ([facility]) [address] [place] [address] [id number] 5 04/05/2025 18:47:00 04/10/2025 12:04:42 [id number] Agustín Glass MD [facility] ([facility]) [address] [place] [address] [id number] 5 04/09/2025 11:26:05 04/09/2025 13:08:48 Acute kidney injury 06466219 N17.9 0102352 Will recheck labs today to ensure resolution of his kidney issues. Chronic anemia 945511061 D64.9 540541 Recheck blood counts. Patient's blood counts was likely contributi ng to the patient's symptoms. Pneumonia 827859094 J18. 9 9769985401 Complete entire course of antibiotic s. Anticipate the patient will continue to improve [id number] JAISON BLACK [facility] ([facility]) [address] [place] [address] [id number] 5 06/26/2025 13:37:10 06/26/2025 15:10:22 Low blood pressure 32585971 R03.1 938163 BP normal here in clinic today. Will have patient hold his flomax this week and continue monitoring bp. If he continues to have low reads he is to return to the clinic. [id number] Agustín Glass MD [facility] ([facility]) [address] [place] [address] [id number] 5 07/04/2025 16:04:47 07/10/2025 08:05:51 Low blood pressure 21520360 I95.9 43252526 The patient is not currently on blood pressure medication s, however I do recommend that he stop his furosemide as this could also be contributi ng. [id number] Agustín Glass MD [facility] ([facility]) [address] [place] [address] [id number] 5 07/23/2025 17:26:51 07/23/2025 17:54:48 Pressure injury of left buttock stage II 9940919142 5109 L89.322 4797492982 Patient has a beginning of a pressure injury to the the left buttocks. This is likely combinatio n of poor circulatio n and sitting in 1 position too long. This was discussed with the patient and guidance was provided. I will make a referral to wound care to help with healing. [id number] Agustín Glass MD [facility] ([facility]) [address] [place] [address] [id number] 5 08/07/2025 17:02:13 08/13/2025 09:44:24 Difficulty mobilizing using mobility aids 581631215 R26.89 Based on the informatio n provided the patient, it sounds like he needs a PT eval for fitting for motorized wheelchair . [id number] Agustín Glass MD [facility] ([facility]) [address] [place] [address] [id number] 5 09/04/2025 13:50:41 09/04/2025 14:26:54 Type 2 diabetes mellitus 60375442 E11.8 - Monitor diabetes with today's A1c lab test; reassess in three months.- continue current meds Schizoaffe ctive disorder 47361109 F25.9 stable on current meds. [id number] Agustín Glass MD [facility] ([facility]) [address] [place] [address] [id number] 5 11/13/2025 17:24:51 11/13/2025 18:04:57 Bursitis of left hip 747446576 M70.72 Administer ed a steroid injection into the left hip for therapeuti c relief. This is the patient's first injection for this condition. The patient was counseled that the steroid may temporaril y elevate his blood sugar levels for a few days. Iliotibial band friction syndrome of left knee 9973117004 53113 M76.32 This is considered a contributi ng factor to his radiating leg pain. The plan is to assess the patient's response to the hip injection. Physical therapy was previously attempted without significan t improvemen t and was discontinu ed by insurance. Health Concerns Section Related Observation LastModified by Organization Detai ls LastModified Time None Recorded Concern Status LastModified by Organization Details LastModified Time None Recorded Advance Directives Directive None Recorded Payers Insurance Date Sequence Insurance Name Policy Number Policy Caceres Covered Member ID Caceres Member ID Guarantor Name 11/13/2025 2 [place] Hussein Fitch [id number] Hussein Fitch 11/18/2025 1 [facility] [place] DV[place] - HMO) Hussein Fitch [id number] Hussein Fitch 11/13/2025 [place] [facility] Hussein Fitch [id number] Hussein Fitch Notes Date Note Type Note Provider Name and Address Organization Details Recorded Time 07/04/2025 text/html Pt states he went to the ER for hypotension. Patient underwent evaluation and they found no persistent concerns. Patient wanted to discuss medications. Agustín Glass MD [address] [place] [address], [phone], [facility] 07/07/2025 11:21:14 07/23/2025 text/html This is a 70-year-old gentleman that comes in today to discuss a few concerns. The patient is attempting to get a light weight wheelchair and states that we will be receiving either paperwork or a phone call to discuss this. Patient also has a lesion on his left hip that he would like it looked at today. Patient states that he has noticed that over the last few days and states it is tender to touch. Patient denies any falls. Agustín Glass MD [address] [place] [address], [phone], [facility] 07/29/2025 07:56:42 08/07/2025 text/html ROS as noted in the HPI This is a 70-year-old gentleman that comes in today stating that he needs a fitting for his new motorized wheelchair. Patient was unsure of the specific needs from the DME company. Agustín Glass MD [address] [place] [address], [phone], [facility] 08/11/2025 12:01:32 09/04/2025 text/html Diabetes F/UReported by PatientHPIFor context, patient reportshome blood sugar within normal range,not missing doses of medications,no side effects from medications,not seeing eye doctor regularly, andnot checking feet regularly(blood sugars are around 110 at home). For associated symptoms, patient reportsno unintentional weight gain,no unintentional weight loss,no dizziness,no sweats,no headaches, andno blurred vision. The patient is a 70-year-old male presenting with type 2 diabetes mellitus for follow-up. He reports stability in his diabetes management and commends himself on maintaining his smoking cessation for a year. Unresolved issues regarding his motorized wheelchair remain, with failed communication attempts with the supplier. The patient's colonoscopy is arranged for September 17, 2025, in [place]. No other concerns today. Agustín Glass MD [address] [place] [address], [phone], [facility] 09/04/2025 14:24:28 11/13/2025 text/html ROS as noted in the HPI The patient is a 70-year-old male presenting with left hip and leg pain. He reports the pain is severe and radiates down his left leg. He has been managing the pain with a topical cream and Tylenol, which has provided some relief. This is his first injection for this condition. He previously attended physical therapy for both legs, but it was discontinued by his insurance due to a lack of significant improvement. A request for a new mobility chair was denied because he is only eligible for a new one every five years and has already received one within that period. He is arranging for his old chair to be repaired. - Home Monitoring: Patient reports his blood sugar is typically around 121 mg/dL. Agustín Glass MD [address] [place] [address], [phone], [facility] 11/16/2025 09:55:36
--- OUTSIDE RECORDS SUMMARY | 2025-11-18 14:44 | XMS_ITS | Continuity of Care Document ---
Author Organization [facility] Tee Nicole [facility] Kali [place], [facility] ([facility]) Address [address] [place] [address] Care Team Providers Care Engineer Specialist Name Role Phone AGUSTÍN GLASS Primary Care Provider [phone] Assessment Encounter Date Assessment Date Assessment LastModified [...] pre-procedural guidance. [email or web address] Not available 09/04/2025 14:20:51 Plan of Treatment Reminders Order Date Submit Date Provider Last Modified By Organization Details Last Modified Time Details Appointments RECHECK 15 2025 01:00P Amarilis Glass MD Not available Not available Not available Lab hemoglobi n A1C/hemog lobin total, QN, blood 2024 025 WILTON Tee [facility], [address] [facility], [place], [address], 09/04/2025 14:42:26 Referral None recorded. Procedures None recorded. Surgeries None recorded. Imaging None recorded. Medication Orders None recorded. Patient TargetsNo targets recorded. Patient Instructions Encounter Date Encounter Id Patient Instructions Last Modified By Organization Details Last Modified Time 09/04/2025 [id number] - Have your A1c checked in the lab today. - Continue avoiding smoking, and maintain a healthy lifestyle. - Investigate local suppliers in [place] for wheelchair options. - Prepare for your colonoscopy on September 17, 2025, as instructed. - Return for a follow-up appointment in three months. [email or web address] Not available 09/04/2025 14:20:54 During the visit , we discussed the patient's stable diabetes management, noting his year-long smoking cessation, which is commendable. We addressed ongoing difficulties in obtaining a motorized wheelchair and considered exploring local suppliers in [place]. Scheduled the patient's colonoscopy for September 17, 2025, and ensured he is prepared for the procedure. Advised follow-up in three months for diabetes reassessment and emphasized maintaining healthy lifestyle modifications. [email or web address] Not available 09/04/2025 14:20:54 Reason for Referral None Reported. Results Created Date Observation Date Name Description Value Unit Range Abnormal Flag Note LastModifiedBy Organization Detail LastModifiedTime 09/04/2009/04/2025 HBA1C hemaglobin A1C 7.1 4.2-6. 5 high Not Available [facility] [address] [facility] [address], [place], [address], 09/04/2025 14:42:26 Result Notes None recorded. 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, LSusieLCezar 3 19:10:23 Type 2 diabetes mellitus without complica tion 956078316 Completed 201902/14/2025 DIABETES MELLITUS ; Recorded 05/07/20 12:36PM by Lita Mccurdy LPN, Historic al Summary; Promoted ; acuity set as *; Removal Reason: Dacia hines [facility], L.LSusieC. 5 10:27:44 Large prostate 675783126 Active 2020 BPH (BENIGN PROSTATI C HYPERTRO PHY); Recorded 12/29/19 1:17PM by Lita Mccurdy LPN, Historic al Summary; Promoted ; acuity set as *; MALORIE SOSA donny, [facility] 3 19:10:15 Type 2 diabetes mellitus 96594508 Active 2022 Agustín Glass MD [address] [place] [address], [phone] 5, [facility]. 14:23:45 Anemia 732963887 Completed 202202/14/2025 Removal Reason: Dacia hines, [facility] 5 10:33:44 Benign prostati c hyperpla wilfred 728262812 Active 2022 Agustín Glass MD [address] [place] [address], [phone] 5, [facility] 3 14:05:18 Chronic obstruct yoanna pulmonar y disease 67190880 Active 2022 Agustín Glass MD [address] [place] [address], 314[address]041 5, [facility] 3 14:05:20 Peripher al arterial disease 941516804 Active 2022 Agustín Glass MD [address] [place] [address], [phone] 5, [facility] 3 14:05:26 Mixed anxiety and depressi ve disorder 882124332 Active 2022 Agustín Glass MD [address] [place] [address], [phone] 5, [facility] 3 14:05:22 Peripher al vascular disease 450126249 Active 2022 Agustín Glass MD [address] [place] [address], [address] 5, [facility], Dean.L.CSusie 3 14:05:27 Neuropat hy 535175291 Completed 202202/14/2025 Removal Reason: Dacia hines [facility], L.L.CSusie 5 10:32:57 Schizoaf fective disorder 17092579 Active 2022 Agustín Glass MD [address] [place] [address], [phone] 5, [facility], DeannaLSusieCSusie 5 14:23:33 Gastroes ophageal reflux disease 764495331 Active 2022 MALORIE hines [facility], L.L.CSusie 3 19:10:27 Malaise and fatigue 546501580 Active 2022 MALORIE hines [facility], L.L.CSusie 3 19:10:09 Smoker 05863218 Completed 202202/14/2025 Removal Reason: Dacia hines [facility], L.L.CSusie 5 10:30:52 Chronic pain 95317674 Active 2022 Lindsey hines [facility], L.L.CSusie 5 10:28:50 Unintent ional weight loss 460671199 Completed 202302/14/2025 Lindsey hines [facility], Dean.L.CSusie 5 10:31:13 Chronic anemia 516765695 Active 2023 Agustín Glass MD [address] [place] [address], [phone] 5, [facility], L.L.CSusie 5 12:08:31 Difficul ty walking 243466624 Active 2023 Lindsey hines, [facility], L.L.CSusie 5 10:29:26 Dependen ce on enabling machine or device 246470017 Active 2023 Lindsey hines [facility], DeannaL.CSusie 5 10:28:56 Carotid bruit 094154253 Active 2023 Lindsey hines, [facility], DeannaL.CSusie 5 10:28:27 Dysphagi a 68279375 Active 2023 Lindsey hines [facility], DeannaL.CSusie 5 10:29:42 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 5 10:30:04 Low blood pressure 33588741 Completed 202302/14/2025 Agustín Glass MD [address] [place] [address], 21507-458 5, [facility], L.L.CSusie 5 11:20:27 Tobacco dependen ce syndrome 50348208 Active 2023 Lindsey hines [facility], L.L.CSusie 5 10:30:58 Physical decondit ioning 36237022189 102 Active 2023 JULISSA hines [facility], L.L.CSusie 5 14:51:54 Difficul ty mobilizi ng using mobility aids 971192847 Active 2023 Lindsey hines, [facility] 5 10:29:32 Dyspnea on exertion 15622932 Active 2023 Lindsey hines, [facility] 5 10:29:48 Atypical angina 510778135 Active 2023 Lindsey hines, [facility] 5 10:28:07 Acute bacteria l bronchit is 327492110 Completed 202402/14/2025 Lindsey hines, [facility] 5 10:27:57 Multiple nodules of lung 817981782 Active 2024 Lindseyila hines [facility]. 5 10:31:20 Tricuspi d valve regurgit ation 087886294 Active 2024 Agustín Glass MD [address] [place] [address], [phone] 5, [facility] 5 15:00:26 Trochant juvencio bursitis of left hip 26664768696 9103 Active 2024 Lindseyila hines [facility] 5 12:54:20 CT of chest abnormal 28602168459 436472 Active 2024 Lindseyila hines [facility] 5 12:54:29 Acute kidney injury 56490054 Active 2024 Lindsey Mcelroy donny [facility] 5 12:54:35 Pneumoni a 433200741 Active 2024 Agustín Glass MD [address] [place] [address], 25512-812 5, [facility] 04:57:35 Low blood pressure 81383178 Active 2024 Agustín Glass MD [address] [place] [address], 84[address]-719 5, [facility], MarcyCSusie 11:20:26 Wound of skin 508040750 Active 2024 Agustín Glass MD [address] [place] [address], [phone] 5, [facility], Kali 17:45:15 Pressure injury of left buttock stage II Active 2024 Agustín Glass MD [address] [place] [address], 55[address]-973 5, [facility], Kali 17:45:43 Problem Notes None recorded. Procedures Surgical History Date Name Laterality Status Provider Name and Address Organization Details Recorded Time 11/13/20 25 Joint Inj Kenalog- Shoulder, Hip, Knee completed Agustín Glass MD [address] [place] [address], [phone], [facility], L.LSusieCSusie 11/16/2025 09:54:58 04/26/[address] [facility], L.LSusieCSusie 05/14/2024 17:00:40 01/26/20 24 endoscopy and biopsy of upper gastrointestinal tract [facility] FLOWERS [facility], L.LSusieCSusie 01/30/2024 16:12:18 procedure on eye completed Andrade George [facility], LSusieLCezar 03/12/2025 13:30:48 procedure on lower leg completed Andrade George [facility], LSusieLSusieCSusie 03/12/2025 13:31:14 procedure on lung completed Lindsey Mcelroy [facility], LSusieLCezar 07/23/2025 17:38:00 Imaging Results None recorded. [...] Not Available Not Available No t Available [employer]Touch Ultra Test strips USE TO test blood [...] weekly x 4 weeks then monthly vo LARRY/demetrio /destiny torres; Recorded 12/24/19 20 8:02AM by Lita Mccurdy [...] HCl daily 07/19 completed 0; Recorded 12/24/19 20 8:02AM by Lita Mccurdy LPN, Office Visit; Not Available Not Available Not Available cilostazo l two times daily 07/19 completed vo KM/; 30113; Recorded 05/14/20 8:28AM by Lita Mccurdy LPN (Authori shanice through Wendy Nuñez PA-C), Refill Request; Refill Quantity : 60; Tablet; Not Available Not Available Not Available Vitamin-C daily 01/25 completed 0; Recorded 12/24/19 20 8:02AM by Lita Mccurdy LPN, Office Visit; Not Available Not Available Not Available Avodart daily 07/19 completed PT MUST BE SEEN FOR MORE /; 98506; Recorded 12/29/19 1:17PM by Lita Mccurdy LPN (Authori shanice through Wendy Nuñez PA-C), Historic al Summary; Refill Quantity : 0; Not Available Not Available Not Available aripipraz ole daily 07/19 completed 0; Recorded 12/24/19 20 8:02AM by Lita Mccurdy LPN, Office Visit; Not Available Not Available Not Available Truetrack Test Strips daily 07/25 completed DX: Diabetes Mellitus E11.9 [facility]/ [facility]; [address]4734; Recorded 12/24/19 8:02AM by Lita Mccurdy LPN [...] Available Not Available No t Available [facility] COVID-19 Antigen Rapid Home Test kit DIRECTED 04/21 completed Not Available Not Available Not Available Vitals Date Recorded Body height Body mass index (BMI) Body weight Body temperature Respiratory rate Oxygen saturation Heart rate Systolic And Diastolic Provider Name and Address Organization Details Last Updated DateTime 5 177.8 cm 19.8 kg/m2 79329.7 5 g 97 [degF] 16 /min 98 % 84 /min 128/64 mm[Hg] Lindsey Mcelroy [facility] 14:00:15 Social History Question Answer Notes LastModified by Organizat ion Details LastModified Time Tobacco Smoking Status Former Smoker quit smoking 9 months ago Kerry hines [facility] 07/04/2025 16:15:08 Are You Blind Or Do You Have Difficulty Seeing? No Information not available 10/24/2023 What Is Your Level Of Caffeine Consumption? Occasional Information not available 06/09/2023 Are You Deaf Or Do You Have Serious Difficulty Hearing? No Information not available 10/24/2023 When Did You Quit Smoking? 16+yearssincel astcikayce Spring 2023 [email or web address] Information not available 07/23/2025 Which Of Your Hands Is Dominant? Right Information not available 10/24/2023 What Was The Date Of Your Most Recent Tobacco Screening? 08/07/2025 [email or web address] Information not available 08/07/2025 What Is Your Current Pack Years? 30ormorepackye ars [email or web address] Information not available 12/12/2024 What Is Your Relationship Status? Information not available 06/09/2023 At What Age Did You Start Smoking Tobacco? 15 Information not available 07/23/2025 Have You Recently Traveled Abroad? No Information not available 06/09/2023 Do You Have Difficulty Walking Or Climbing Stairs? No Information not available 10/24/2023 Are You Currently In School? No Information not available 06/09/2023 Sex: Unknown Functional Status Question Answer Note LastModified by [employer] ion Details LastModified Time Do you use [...] split virus, trivalent, preservative 9 completed JULISSA hines, [facility] 08/15/2023 14:03:08 Influenza, split virus, trivalent, preservative 6 completed JULISSA hines [facility] 08/15/2023 14:03:08 Influenza, split virus, trivalent, preservative 3 completed JULISSA hnies [facility] 08/15/2023 14:03:08 Influenza, split virus, trivalent, preservative 7 completed JULISSA hines [facility] 08/15/2023 14:03:08 Influenza, split virus, trivalent, preservative 8 completed JULISSA hines [facility] 08/15/2023 14:03:08 Influenza, high-dose, quadrivalent, PF 3 completed JULISSA hines [facility] 08/15/2023 14:03:07 Pneumococcal conjugate PCV20, polysaccharide RUO139 conjugate, adjuvant, PF 3 completed JULISSA hines [facility] 08/15/2023 14:03:08 Influenza, high-dose, quadrivalent, PF 2 completed MALORIE hines [facility] 06/08/2023 14:17:50 COVID-19, mRNA, LNP-S, PF, 100 mcg/0.5mL dose or 50 mcg/0.25mL dose 1 completed MALORIE hines [facility] 06/08/2023 14:17:50 COVID-19, mRNA, LNP-S, PF, 100 mcg/0.5mL dose or 50 mcg/0.25mL dose 1 completed MALORIE hines [facility] 06/08/2023 14:17:51 influenza, split (incl. purified surface antigen) 0 completed MALORIESA IAN hines [facility] 06/08/2023 14:17:51 Influenza, split virus, quadrivalent, PF 1 completed MALORIE IAN hines [facility] 06/08/2023 14:17:51 zoster recombinant 3 completed Not Available [facility] 11/13/2025 17:25:09 Influenza, high-dose, trivalent, PF 5 completed Not Available [facility] 11/13/2025 17:25:09 pneumococcal polysaccharide PPV23 5 completed Not Available [facility] 11/13/2025 17:25:09 Influenza, high-dose, trivalent, PF 5 completed Not Available [facility] 11/13/2025 17:25:09 Past Encounters Encounter ID Performer Location Encounter Start Date Encounter Closed Date Diagnosis/Indication Diagnosis SNOMED-CT Code Diagnosis ICD10 Code Diagnosis IMO Codes Diagnosis Note [id number] Agustín Glass MD [facility] ([facility]) [address] [place] [address] 08/07/2025 17:02:13 08/13/2025 09:44:24 Difficulty mobilizing using mobility aids 821746601 R26.89 Based on the informatio n provided the patient, it sounds like he needs a PT eval for fitting for motorized wheelchair . [id number] Agustín Glass MD [facility] ([facility]) [address] [place] [address] 09/04/2025 13:50:41 09/04/2025 14:26:54 Type 2 diabetes mellitus 21976826 E11.8 - Monitor diabetes with today's A1c lab test; reassess in three months.- continue current meds Schizoaffe ctive disorder 69975193 F25.9 stable on current meds. Health Concerns Section Related Observation LastModified by Organization Detai ls LastModified Time None Recorded Concern Status LastModified by Organization Details LastModified Time None Recorded Payers Encounter Date Sequence Insurance Name Policy Number Policy Caceres Covered Member ID Caceres Member ID Guarantor Name 09/04/2025 1 [facility]IC[place]/A DVANTAGE - HMO) Hussein Fitch [id number] Hussein Fitch 09/04/2025 2 [place] Hussein Fitch [id number] Hussein Fitch Notes Date Note Type Note Provider Name and Address Organization Details Recorded Time 09/04/2025 text/html Diabetes F/UReported by PatientHPIFor context, [...] is arranged for September 17, 2025, in [place]. No other concerns today. Agustín Glass MD [address] [place] [address], [phone], [facility], Kali 09/04/2025 14:24:28
--- OUTSIDE RECORDS SUMMARY | 2025-11-18 14:44 | XMS_ITS | Continuity of Care Document ---
Author Organization [place] - Tee Nicole [facility] Kali Magana, [facility] ([facility]) Address [address] [place] [address] Care Team Providers Care Temperature Regulator Name Role Phone AGUSTÍN GLASS Primary Care Provider [phone] Assessment Encounter Date Assessment Date Assessment LastModified by Organization Details LastModified Time 11/13/2025 11/13/2025 A 70-year-old male with a [...] Not available Not available Not available Lab None recorded . Referral None recorded . Procedures None recorded . Surgeries None recorded . Imaging None recorded . Medication Orders None recorded . Patient TargetsNo targets recorded. Patient Instructions Encounter Date Encounter Id Patient Instructions Last Modified By Organization Details Last Modified Time 11/13/2025 [id number] - You have received a steroid injection [...] Not available 11/13/2025 18:00:19 Reason for Referral None Reported. 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 56133991576 02 Active 2019 TYPE 2 DIABETES MELLITUS WITH PRESSURE CALLUS; Impressi on: left foot.; Recorded 05/07/20 12:35PM by Lita Mccurdy LPN, Annotati on/Adden dum; Promoted ; acuity set as *; MALORIE hines [facility], L.LSusieCSusie 3 19:10:23 Type 2 diabetes mellitus without complica tion 263143857 Completed 201902/14/2025 DIABETES MELLITUS ; Recorded 05/07/20 20 12:36PM by Lita Mccurdy LPN, Historic al Summary; Promoted ; acuity set as *; Removal Reason: andrés Portillo Navi hines [place] Zafar [facility] [place], L.LCezar 5 10:27:44 Large prostate 909278391 Active 2020 BPH (BENIGN PROSTATI C HYPERTRO PHY); Recorded 12/29/19 21 1:17PM by Lita Mccurdy LPN, Historic al Summary; Promoted ; acuity set as *; MALORIE hines [facility], L.LSusieCSusie 3 19:10:15 Type 2 diabetes mellitus 96403497 Active 2022 Agustín Glass MD [address] [place] [address], [address], [facility] 5 14:23:45 Anemia 168719026 Completed 202202/14/2025 Removal Reason: andrés Portillo Navi hines, [facility] 5 10:33:44 Benign prostati c hyperpla wilfred 938977577 Active 2022 Agustín Glass MD [address] [place] [address], [address], [facility] 3 14:05:18 Chronic obstruct yoanna pulmonar y disease 99260499 Active 2022 Agustín Glass MD [address] [place] [address], [address], [facility] 3 14:05:20 Peripher al arterial disease 897381236 Active 2022 Agustín Glass MD [address] [place] [address], [address], [facility] 3 14:05:26 Mixed anxiety and depressi ve disorder 644521920 Active 2022 Agustín Glass MD [address] [place] [address], [address], [facility] 3 14:05:22 Peripher al vascular disease 914659057 Active 2022 Agustín Glass MD [address] [place] [address], [address], [facility] 3 14:05:27 Neuropat hy 654396255 Completed 202202/14/2025 Removal Reason: Dacia hines [facility], L.L.CSusie 5 10:32:57 Schizoaf fective disorder 04571983 Active 2022 Agustín Glass MD [address] [place], [address], [facility], DeannaLSusieCSusie 5 14:23:33 Gastroes ophageal reflux disease 579293482 Active 2022 MALORIE hines [facility], L.L.CSusie 3 19:10:27 Malaise and fatigue 947373318 Active 2022 MALORIE hines [facility]CS[facility]ie 3 19:10:09 Smoker 06288974 Completed 202202/14/2025 Removal Reason: Dacia hines [facility], L.L.CSusie 5 10:30:52 Chronic pain 34876252 Active 2022 Lindsey hines [facility], L.L.CSusie 5 10:28:50 Unintent ional weight loss 157331887 Completed 202302/14/2025 Lindsey hines [facility] L[facility]CS[facility]ie 5 10:31:13 Chronic anemia 304386920 Active 2023 Agustín Glass MD [address] [place], [address], [place] [facility], DeannaL.CSusie 5 12:08:31 Difficul ty walking 684341999 Active 2023 Lindsey hines [facility], DeannaLSusieCSusie 5 10:29:26 Dependen ce on enabling machine or device 293504799 Active 2023 Lindsey hines [facility] 5 10:28:56 Carotid bruit 207534276 Active 2023 Lindsey hines, [facility] 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 10:29:56 Microalb uminuric diabetic nephropa thy 657171742 [facility] 2023 [facility] 5 10:30:04 Low blood pressure 81223373 Completed 202302/14/2025 Agustín Glass MD [address] [place] [address], [address] , [facility] 11:20:27 Tobacco dependen ce syndrome 05950193 Active 2023 [facility] 5 10:30:58 Physical decondit ioning 76308958880 102 Active 2023 [facility] 14:51:54 Difficul ty mobilizi ng using mobility aids 996982703 Active 2023 Lindsey hines [facility] 10:29:32 Dyspnea on exertion 71052704 Active 2023 Lindsey hines [facility] 10:29:48 Atypical angina 218296472 Active 2023 Lindsey hines [facility] 5 10:28:07 Acute bacteria l bronchit is 285592781 Completed 202402/14/2025 Lindsey ihnes, [facility] 5 10:27:57 Multiple nodules of lung 223870769 Active 2024 Lindsey hines [facility] 10:31:20 Tricuspi d valve regurgit ation 240038102 Active 2024 Agustín Glass MD [address] [place] [address], [address], [facility] 15:00:26 Trochant juvencio bursitis of left hip 24434001655 9103 Active 2024 Lindsey hines [facility] 5 12:54:20 CT of chest abnormal 22172959417 558737 Active 2024 Lindsey hines [facility] 12:54:29 Acute kidney injury 52535559 [facility] 2024 [facility] 5 12:54:35 Pneumoni a 680999446 Active 2024 Agustín Glass MD [address] [place] [address], [address] 5, [facility] 5 04:57:35 Low blood pressure 97405635 Active 2024 Agustín Glass MD [address] [place] [address], [address], [facility] 5 11:20:26 Wound of skin 421642733 Active 2024 Agustín Glass MD [address] [place], [address], [facility], LZoe 17:45:15 Pressure injury of left buttock stage II Active 2024 Agustín Glass MD [address] [place], [address], [facility], Kali 17:45:43 Problem Notes None recorded. Procedures Surgical History Date Name Laterality Status Provider Name and Address Organization Details Recorded Time 11/13/20 25 Joint Inj Kenalog- Shoulder, Hip, Knee completed Agustín Glass MD [address] [place], [address], [facility], Kali 11/16/2025 09:54:58 04/26/20 24 [facility] L[facility]LC[facility] 05/14/2024 17:00:40 01/26/20 24 endoscopy and biopsy of upper gastrointestinal tract completed [facility], L.LSusieCSusie 01/30/2024 16:12:18 procedure on eye completed [facility], LSusieLSusieCSusie 03/12/2025 13:30:48 procedure on lower leg completed Andrade George [facility], LSusieLCezar 03/12/2025 13:31:14 procedure on lung completed Lindsey Mcelroy [facility], L.LSusieCSusie 07/23/2025 17:38:00 Imaging Results None recorded. Procedure [...] Not Available Not Available No t Available HeyStaksToSellvana Ultra Test strips USE TO test blood [...] weekly x 4 weeks then monthly vo KM/ /destiny torres; Recorded 12/24/19 8:02AM by Lita Mccurdy LPN, [...] times daily 07/19 completed 0; Recorded 12/24/19 8:02AM by Lita Mccurdy LPN, Office Visit; Not Available Not Available Not Available bupropion HCl daily 07/19 completed 0; Recorded 12/24/19 20 8:02AM by Lita Mccurdy LPN, Office Visit; Not Available Not Available Not Available cilostazo l two times daily 07/19 completed vo KM/; 76885; Recorded 05/14/20 8:28AM by Lita Mccurdy LPN (Authori shanice through Wendy Nuñez PA-C), Refill Request; Refill Quantity : 60; Tablet; Not Available Not Available Not Available Vitamin-C daily 01/25 completed 0; Recorded 12/24/19 20 8:02AM by Lita Mccurdy LPN, Office Visit; Not Available Not Available Not Available Avodart daily 07/19 completed PT MUST BE SEEN FOR MORE [facility]; 38421; Recorded 12/29/19 1:17PM by Lita Mccurdy LPN (Authori shanice through Wendy Nuñez PA-C), Historic al Summary; Refill Quantity : 0; Not Available Not Available Not Available aripipraz ole daily 07/19 completed 0; Recorded 12/24/19 8:02AM by Lita Mccurdy LPN, Office Visit; Not Available Not Available Not Available Truetrack Test Strips daily 07/25 completed DX: Diabetes Mellitus E11.9 vo / /delaney; 69243; Recorded 12/24/19 8:02AM by Lita Mccurdy LPN [...] Not Available Not Available No t Available HeyStaksToSellvana Ultra Blue Test Strip 1 stip 2 [...] Not Available Not Available No t Available [facility] COVID-19 Antigen Rapid Home Test kit DIRECTED 04/21 completed Not Available Not Available Not Available Vitals Date Recorded Body height Body mass index (BMI) Body weight Oxygen saturation Heart rate Respiratory rate Systolic And Diastolic Provider Name and Address Organization Details Last Updated DateTime 177.8 cm 20.6 kg/m2 51539.8 1 g 97 % 88 /min 18 /min 130/68 mm[Hg] Jesusita Nixon [facility] 17:46:43 Social History Question Answer Notes LastModified by Organizat ion Details LastModified Time Tobacco Smoking Status Former Smoker quit smoking 9 months ago Kerry Figueroa [facility] 07/04/2025 16:15:08 Are You Blind Or Do You Have Difficulty Seeing? No Information not available 10/24/2023 What Is Your Level Of Caffeine Consumption? Occasional Information not available 06/09/2023 Are You Deaf Or Do You Have Serious Difficulty Hearing? No Information not available 10/24/2023 When Did You Quit Smoking? 16+yearssincel astcigartalisha Spring 2023 [email or web address] Information not available 07/23/2025 Which Of Your Hands Is Dominant? Right Information not available 10/24/2023 What Was The Date Of Your Most Recent Tobacco Screening? 08/07/2025 [email or web address] Information not available 08/07/2025 What Is Your Current Pack Years? 30ormorepackye cassia [email or web address] Information not available 12/12/2024 What Is Your Relationship Status? Information not available 06/09/2023 At What Age Did You Start Smoking Tobacco? 15 [email or web address] Information not available 07/23/2025 Have You Recently Traveled Abroad? No Information not available 06/09/2023 Do You Have Difficulty Walking Or Climbing Stairs? No Information not available 10/24/2023 Are You Currently In School? No Information not available 06/09/2023 Sex: Unknown Functional Status Question Answer Note LastModified by Organizat ion Details LastModified Time Do you use [...] split virus, trivalent, preservative 9 completed JULISSA MONTEJOY null, [facility] 08/15/2023 14:03:08 Influenza, split virus, trivalent, preservative 6 completed JULISSA FLOWERS null, [facility] 08/15/2023 14:03:08 Influenza, split virus, trivalent, preservative 3 completed JULISSA MONTEJOY null, [facility] 08/15/2023 14:03:08 Influenza, split virus, trivalent, preservative 7 completed JULISSA FLOWERS null, [facility] 08/15/2023 14:03:08 Influenza, split virus, trivalent, preservative 8 completed JULISSA FLOWERS null, [facility] 08/15/2023 14:03:08 Influenza, high-dose, quadrivalent, PF 3 completed JULISSA hines, [facility] 08/15/2023 14:03:07 Pneumococcal conjugate PCV20, polysaccharide [id number] conjugate, adjuvant, PF 3 [facility] 08/15/2023 14:03:08 Influenza, high-dose, quadrivalent, PF 2 completed MALORIE hines, [facility] 06/08/2023 14:17:50 COVID-19, mRNA, LNP-S, PF, 100 mcg/0.5mL dose or 50 mcg/0.25mL dose 1 completed MALORIE hines, [facility] 06/08/2023 14:17:50 COVID-19, mRNA, LNP-S, PF, 100 mcg/0.5mL dose or 50 mcg/0.25mL dose 1 completed MALORIE hines [facility] 06/08/2023 14:17:51 influenza, split (incl. purified surface antigen) 0 completed MALORIE hines [facility] 06/08/2023 14:17:51 Influenza, split virus, quadrivalent, PF 1 completed MALORIE hines [facility] 06/08/2023 14:17:51 zoster recombinant 3 completed Not Available [facility] 11/13/2025 17:25:09 Influenza, high-dose, trivalent, PF 5 completed Not Available [facility] 11/13/2025 17:25:09 pneumococcal polysaccharide PPV23 5 completed Not Available [facility] 11/13/2025 17:25:09 Influenza, high-dose, trivalent, PF 5 completed Not Available [facility] 11/13/2025 17:25:09 Past Encounters Encounter ID Performer Location Encounter Start Date Encounter Closed Date Diagnosis/Indication Diagnosis SNOMED-CT Code Diagnosis ICD10 Code Diagnosis IMO Codes Diagnosis Note [id number] Agustín Glass MD [facility] ([facility]) [address] [place] [address] 11/13/2025 17:24:51 11/13/2025 18:04:57 Bursitis of left hip 028887069 M70.72 Administer ed a steroid injection into the left hip for therapeuti c relief. This is the patient's first injection for this condition. The patient was counseled that the steroid may temporaril y elevate his blood sugar levels for a few days. Iliotibial band friction syndrome of left knee 6281359960 83626 M76.32 This is considered a contributi ng factor to his radiating leg pain. The plan is to assess the patient's response to the hip injection. Physical therapy was previously attempted without significan t improvemen t and was discontinu ed by insurance. Health Concerns Section Related Observation LastModified by Organization [place] LastModified Time None Recorded Concern Status LastModified by Organization Details LastModified Time None Recorded Payers Encounter Date Sequence Insurance Name Policy Number Policy Caceres Covered Member ID Caceres Member ID Guarantor Name 11/13/2025 1 [facility]/A DVANTAGE - HMO) Hussein Fitch [id number] Hussein Fitch 11/13/2025 2 [place] Hussein Fitch [id number] Hussein Fitch Notes Date Note Type Note Provider Name and Address Organization Details Recorded Time 11/13/2025 text/html ROS as noted in the [...] typically around 121 mg/dL. Agustín Glass MD [address] [place] [address], [phone], [facility] 11/16/2025 09:55:36
--- OUTSIDE RECORDS SUMMARY | 2025-11-18 14:44 | XMS_ITS | Clinical Summary ---
Author Organization [employer] Address [address] [facility] Attn: Epic Prelude ADT JAVI MALHOTRA [address] Care Team Providers Care Corn Husker Machine Operator Name Role Phone Wendy Nuñez Primary Care Provider [phone] Allergies No known active allergies Medications PEG-Electrolyte [...] on file Legal Sex Male 1:53 PM PIPELAYER Gender Identity Not on file Sexual Orientation Not on file Last Filed Vital Signs Vital Sign Reading Time Taken Comments Blood Pressure 156/74 10/16/2019 10:59 AM PIPELAYER Pulse 100 10/16/2019 10:59 AM PIPELAYER Temperature - - Respiratory Rate - - Oxygen Saturation - - Inhaled Oxygen Concentration - - Weight 65.3 kg (144 lb) 12/28/2019 10:17 AM PIPELAYER Height 180.3 cm (5' 11 ) 12/28/2019 10:17 AM PIPELAYER Body Mass Index 20.08 12/28/2019 10:17 AM PIPELAYER Plan of Treatment Health Maintenance Due Date [...] - 1-dose 75+ series) 2030 Care Teams Corn Husker Machine Operator Relationship Specialty Start Date End Date Wendy Nuñez PA [address] [place] [address] PCP - General Physician Ear Nose Throat Physician 10/16/19
--- OUTSIDE RECORDS SUMMARY | 2025-11-18 14:44 | XMS_ITS | Clinical Summary ---
Author Organization [facility] Address [address] [place] [address] Phone Care Team Providers Care Bank Sales And Service Manager Name Role Phone Wendy Nuñez Primary Care Provider [phone] Allergies No known active allergies Medications tamsulosin [...] Comments Blood Pressure 156/74 10/16/2019 10:59 AM PROSPECTING DRILLER HELPER Pulse 100 10/16/2019 10:59 AM PROSPECTING DRILLER HELPER Temperature - - Respiratory Rate - - Oxygen Saturation - - Inhaled Oxygen Concentration - - Weight 65.3 kg (144 lb) 12/28/2019 10:17 AM PROSPECTING DRILLER HELPER Height 180.3 cm (5' 11 ) 12/28/2019 10:17 AM PROSPECTING DRILLER HELPER Body Mass Index 20.08 12/28/2019 10:17 AM PROSPECTING DRILLER HELPER Plan of Treatment Health Maintenance Due Date [...] series) 2030 Insurance [place]ICAID [place] Care Teams Bank Sales And Service Manager Relationship Specialty Start Date End Date Wendy Nuñez PA [address] [facility] [address] [facility] [address] [place] [address] PCP - General Physician Senior Erp Consultant 10/16/19
[2025-11-18 14:46] VITALS: BP 113/46
--- NOTE | 2025-11-18 14:50 | XR_ITS ---
WS: [id number] Portable AP upright chest, 11/18/2025 Clinical Data: dyspnea/cough Comparison: Portable chest, 06/24/2025 Findings: There is minimal patchy opacity over the surface of the right diaphragm which could represent minimal pneumonia and/or atelectasis. The diaphragms are flattened. No nodules, masses or effusions are seen. The heart is normal. The pulmonary vascularity is not increased. No pneumonia or pneumothorax is seen. The aortic arch shows calcification. Monitor leads are on the chest wall. XR/XR chest 1V portable [id number] Impression: 1. Minimal patchy opacity over the surface of the right diaphragm. 2. Atherosclerosis and hyperinflation.
--- NOTE | 2025-11-18 14:50 | PC.NURSE ---
after triage, on the way to room patient reported that he took nitro x 2 this am and that he felt dizziness and difficulty speaking this am.
--- NOTE | 2025-11-18 14:51 | ECG_ITS ---
[employer] Test Date: 2025-11-18 Pat Name: Hussein Fitch Department: Room: Gender: Male Pocketbook Maker: : [id number] Requested By: Russ Moran Order Number: [id number] Reading MD: ESPERANZA RAUSCH Measurements Intervals [place] Rate: 85 P: 0 ND: 0 QRS: 91 QRSD: 89 T: 75 QT: 344 QTc: 410 Interpretive Statements SUPRAVENTRICULAR RHYTHM BORDERLINE RIGHT AXIS DEVIATION [QRS AXIS > 90] ABNORMAL RHYTHM ECG Compared to ECG 06/24/2025 12:53:36 Supraventricular rhythm now present Sinus rhythm no longer present Electronically Signed On 11-19-2025 11:56:35 PRODUCTION MACHINIST by ESPERANZA RAUSCH [email or web address]
[2025-11-18 15:01] VITALS: BP 119/53; PULSE 82; O2SAT 95
--- NOTE | 2025-11-18 15:07 | W.ED.GENADLT ---
HPI - General Adult General: Chief complaint: General Medical Stated complaint: low bp, dizzy Time Seen by Provider: 11/18/25 14:50 History of Present Illness: 70-year-old male with a history of COPD and peripheral vascular disease presents emergency room complaining of low blood pressure and dizziness. Had episode of chest pain last after which she took 2 nitro. Chest pain resolved is not had any further chest pain he has no chest pain at this time he has had some loose stools denies any hematochezia no vomiting. Denies dysuria urgency or frequency. States his blood pressure was lowest 70 systolic this morning but it is subsequently resolved. Associated symptoms: Deny chest pain, dyspnea or rash Related Data Home Medications ?Medication ?Instructions ?Recorded ?Confirmed ascorbic acid (vitamin C) 500 mg 500 mg PO DAILY 12/11/19 11/18/25 capsule finasteride 5 mg tablet 5 mg PO QAM 12/11/19 11/18/25 gabapentin 300 mg capsule 300 mg PO TID 12/11/19 11/18/25 tamsulosin 0.4 mg capsule 0.4 mg PO BEDTIME 12/11/19 11/18/25 docusate sodium 100 mg tablet 100 mg PO BID PRN Constipation 06/29/21 11/18/25 ferrous sulfate 325 mg (65 mg 325 mg PO QAM 07/01/22 11/18/25 iron) tablet metformin 1,000 mg tablet 1,000 mg PO BID 06/13/23 11/18/25 budesonide 160 mcg-glycopyr 9 2 inh inhalation BID 12/26/23 11/18/25 mcg-formot 4.8 mcg/actuation HFA inhaler (Breztri Aerosphere) cyanocobalamin (vitamin B-12) 1,000 mcg IM Q30D 01/24/24 11/18/25 1,000 mcg/mL injection solution aspirin 81 mg tablet,delayed 81 mg PO QAM 02/24/24 11/18/25 release Held on 11/18/25. Instructions: Resume on 11/25/25. clopidogrel 75 mg tablet 75 mg PO QAM 02/24/24 11/18/25 Held on 11/18/25. Instructions: Resume on 11/25/25. pravastatin 80 mg tablet 80 mg PO BEDTIME 02/24/24 11/18/25 prednisolone acetate 1 % eye 1 drp ophthalmic (eye) QID 02/24/24 11/18/25 drops,suspension dapagliflozin propanediol 10 mg 10 mg PO DAILY 10/22/24 11/18/25 tablet (Farxiga) metoclopramide HCl 5 mg tablet 5 mg PO TID 12/04/24 11/18/25 albuterol sulfate 90 mcg/actuation 2 puff inhalation Q4H PRN 04/06/25 11/18/25 aerosol inhaler (Ventolin HFA) Shortness Of Breath diclofenac sodium 1 % topical gel 4 g topical QID PRN Pain 04/06/25 11/18/25 insulin glargine 100 unit/mL (3 6 unit SUBCUT BEDTIME 04/06/25 11/18/25 mL) subcutaneous pen (Lantus Solostar U-100 Insulin) pantoprazole 40 mg tablet,delayed 40 mg PO BID 04/06/25 11/18/25 release Previous Rx's ?Medication ?Instructions ?Recorded pentoxifylline 400 mg 400 mg PO TID #90 tabs 06/28/24 tablet,extended release Diabetic shoes with 3 sets of #1 ea 11/06/24 insoles aripiprazole 10 mg tablet (Abilify) 10 mg PO .morning #90 tabs 06/11/25 buspirone 30 mg tablet 30 mg PO BID #180 tabs 06/11/25 mirtazapine 30 mg tablet 30 mg PO BEDTIME #90 tabs 06/11/25 nitroglycerin 0.4 mg sublingual See Rx Instructions .Route 09/25/25 tablet .COMPLEX #25 tabs prazosin 1 mg capsule 2 mg (2 x 1 mg) PO BEDTIME #60 caps 10/07/25 levofloxacin 750 mg tablet 750 mg PO DAILY 7 days #7 tabs 11/18/25 Allergies Allergy/AdvReac Type Severity Reaction Status Date / Time No Known Allergies Allergy Verified 11/18/25 10:49 Review of Systems Const: Denies: fever(s) or chills Card: Denies: chest pain Resp: Denies: dyspnea GI: Denies: abdominal pain : Denies: dysuria, urinary frequency or urinary urgency Musc: Denies: neck pain or back pain Skin/Breast: Denies: rash PFSH ED PFSH: Medical History Chronic post-traumatic stress disorder Proctocolitis History of MRSA infection GERD (gastroesophageal reflux disease) Peripheral neuropathy Type 2 diabetes mellitus Psychiatric care Anemia Peripheral arterial disease COPD (chronic obstructive pulmonary disease) Dyslipidemia Essential hypertension Schizoaffective disorder, depressive type BPH with obstruction/lower urinary tract symptoms Surgical History History of coronary artery stent placement History of eye surgery x3 History of surgery on arm Multiple procedures on the right arm related to MRSA infection H/O foot surgery x 2 for diabetic foot ulcer H/O colonoscopy yrs ago H/O esophagogastroduodenoscopy Status post femoral-popliteal bypass surgery Left femoropopliteal bypass in 2012 with redo bypass in 2013 S/P angioplasty Angioplasty with stent placement to the right leg Family History Family/Other Stroke Cancer Diabetes Hypertension Unknown Cancer Father , at age 59 Alcoholic Mother Lung disease Stroke Denies family history of Anesthesia complication Bleeding disorder Social History Smoking and tobacco/nicotine status: former use of tobacco/nicotine Second hand smoke exposure: No Alcohol intake: former Substance/Drug Use: never Household members: other Details: room mate Marital status: Current occupational status: disabled Current gender identity: Male Physical Exam Const: COMMON NORMALS: no acute distress GENERAL APPEARANCE: cooperative and comfortable ORIENTATION/CONSCIOUSNESS: Yes awake, Yes oriented to person, Yes oriented to place and Yes oriented to time HENMT: COMMON NORMALS: normocephalic, atraumatic and hearing grossly normal bilaterally HEAD & SCALP: normocephalic and atraumatic Resp: COMMON NORMALS: normal respiratory effort, No retractions, No use of accessory muscles and clear to auscultation bilaterally AUSCULTATION: clear to auscultation bilaterally Cardio: COMMON NORMALS: regular rate, regular rhythm and No murmurs present (Cardio) RATE: regular rate RHYTHM: regular rhythm GI: COMMON NORMALS: Soft to palpation and No hepatosplenomegaly present AUSCULTATION: Yes normoactive bowel sounds PALPATION: Yes Soft to palpation, No Tenderness to palpation present (GI), No Guarding due to palpation present (GI) and Yes No hepatosplenomegaly present Extremity: COMMON NORMALS: normal to inspection, capillary refill normal, no clubbing, cyanosis or edema, no calf tenderness and no pedal edema Neuro: SENSORIUM/ORIENTATION: Yes oriented to person, Yes oriented to place and Yes oriented to time Skin: COMMON NORMALS: no rashes or lesions noted GENERAL SKIN EXAM: no rashes or lesions noted Course Vital Signs: Vital signs: Vital Signs Temperature 97.8 F 11/18/25 14:41 Pulse Rate 92 11/18/25 16:43 Respiratory Rate 18 11/18/25 15:15 Blood Pressure 139/65 11/18/25 16:43 Pulse Oximetry 96 11/18/25 16:43 Oxygen Delivery Me thod Room Air 11/18/25 16:30 MDM - General Adult Medical Decision Making Medical decision making Social determinants: Difficulty with maintaining her own ADLs I reviewed the patient's medical record. I reviewed the patient's current home meds. Alternate historians: None Differential diagnosis: Hypotension, flu, COVID, RSV, pneumonia, ex exacerbation COPD Lab Review: White count 15,000 hemoglobin 7.5 hematocrit 24 6. Platelets 290. Sodium 132 Imaging: Chest x-ray Right lower lobe pneumonia Assessment of risk Level of risk: Moderate Hospitalization considerations: Consideration for hospitalization based on COPD pneumonia Reexamination: Patient states he is feeling somewhat better Assessment and plan: Patient maintaining his oxygen sat well. His hemoglobin is down but he has had low hemoglobins before. He has not had any medic easier melena recently rectal exam done and it was Hemoccult negative. Patient typed and crossed we will set him up for outpatient unit of blood tomorrow start him on oral antibiotics use albuterol 11/19/2025 8:17 AM Reviewing his chart noted that patient's had hyperkalemia with potassium of 5.9 his creatinine is at his baseline. Will contact the patient and asked him to come back to the emergency room if his potassium rechecked and treated as appropriate. Discussed with the charge nurse that she is contacting patient to have him return. Add hyperkalemia to discharge diagnosis Lab Data 11/18/25 14:14 11/18/25 14:14 Radiology Impressions Chest X-Ray 11/18/25 14:50 Impression: 1. Minimal patchy opacity over the surface of the right diaphragm. 2. Atherosclerosis and hyperinflation. Laboratory Results WBC 15.14 10^3/uL (3.29-11.43) H 11/18/25 14:14 RBC 2.96 10^6/uL (3.85-5.65) L 11/18/25 14:14 Hgb 7.50 g/dL (11.27-16.99) L 11/18/25 14:14 Hct 24.6 % (37-53) L 11/18/25 14:14 MCV 83.1 fl (82-101) 11/18/25 14:14 MCH 25.3 pg (27-33) L 11/18/25 14:14 MCHC 30.5 g/dL (30-55) 11/18/25 14:14 RDW 16.5 % (12.1-15.1) H 11/18/25 14:14 Plt Count 290 10^3/cmm (157-399) 11/18/25 14:14 MPV 9.4 fL (7.4-10.4) 11/18/25 14:14 Neut % (Auto) 81.9 % 11/18/25 14:14 Lymph % (Auto) 8.7 % 11/18/25 14:14 [place] % (Auto) 6.9 % 11/18/25 14:14 Eos % (Auto) 1.7 % 11/18/25 14:14 Baso % (Auto) 0.3 % 11/18/25 14:14 Neut # (Auto) 12.42 10^3/uL (1.8-7.7) H 11/18/25 14:14 Lymph # (Auto) 1.3 10^3/uL (0.8-4.8) 11/18/25 14:14 [place] # (Auto) 1.0 10^3/uL (0.2-0.9) H 11/18/25 14:14 Eos # (Auto) 0.3 10^3/uL (0.0-0.8) 11/18/25 14:14 Baso # (Auto) 0.1 10^3/uL (0.0-0.1) 11/18/25 14:14 Nucleated RBC % (auto) 0 % 11/18/25 14:14 Nucleated RBCs # 0.0 /100WBC 11/18/25 14:14 Sodium 132 mmol/L (136-145) L 11/18/25 14:14 Potassium 5.9 mmol/L (3.5-5.1) H 11/18/25 14:14 Chloride 97 mmol/L (98-107) L 11/18/25 14:14 Carbon Dioxide 23 mmol/L (22-29) 11/18/25 14:14 Anion Gap 17.9 (5-19) 11/18/25 14:14 BUN 45 mg/dL (8-23) H 11/18/25 14:14 Creatinine 1.4 mg/dL (0.7-1.2) H 11/18/25 14:14 GFR Calculation 50.1 mL/min (90-130) L 11/18/25 14:14 Glucose 201 mg/dL (65-115) H 11/18/25 14:14 Calculated Osmolality 291 mOsm/kg (285-295) 11/18/25 14:14 Lactic Acid 1.7 mmol/L (0.5-2.2) 11/18/25 14:14 Calcium 8.8 mg/dL (8.5-10.5) 11/18/25 14:14 Total Bilirubin 0.2 mg/dL (0.15-1.2) 11/18/25 14:14 AST 12 U/L (0-40) 11/18/25 14:14 ALT 10 U/L (0-41) 11/18/25 14:14 Alkaline Phosphatase 88 U/L (40-130) 11/18/25 14:14 Creatine Kinase 48 U/L (39-308) 11/18/25 14:14 Troponin T Baseline 75 ng/L (0-15) H 11/18/25 14:14 Troponin T 60 Minute 68.80 ng/L (0-15) H 11/18/25 15:20 Delta Troponin T -6.20 ABS# (0-10) L 11/18/25 15:20 Total Protein 6.6 g/dL (6.6-8.7) 11/18/25 14:14 Albumin 4.2 g/dL (3.5-5.2) 11/18/25 14:14 Globulin 2.4 g/dL (1.3-4.6) 11/18/25 14:14 Urine Color Yellow (Yellow) 11/18/25 15:37 Urine Appearance Clear (CLEAR) 11/18/25 15:37 Urine pH 6.5 (5-7) 11/18/25 15:37 Ur Specific [place] 1.023 (1.005-1.030) 11/18/25 15:37 Urine Protein Trace (Negative) A 11/18/25 15:37 Urine Glucose (UA) 3+ (Normal) H 11/18/25 15:37 Urine Ketones Trace (Negative) 11/18/25 15:37 Urine Blood Negative (Negative) 11/18/25 15:37 Urine Nitrate Negative (Negative) 11/18/25 15:37 Urine Bilirubin Negative (Negative) 11/18/25 15:37 Urine Urobilinogen 1.0 mg/dL (Negative) 11/18/25 15:37 Ur Leukocyte Esterase Negative (Negative) 11/18/25 15:37 Urine RBC 0-2 /hpf (0-2) 11/18/25 15:37 Urine WBC 0-5 /hpf (0-5) 11/18/25 15:37 Ur Squamous Epith Cells 0-5 /hpf (0-5) 11/18/25 15:37 Amorphous Sediment Not Reportable 11/18/25 15:37 Urine Bacteria None seen /hpf (NONE) 11/18/25 15:37 Hyaline Casts 2.46 /lpf 11/18/25 15:37 Influenza A (PCR) Negative (Negative) 11/18/25 14:57 Influenza Type B (PCR) Negative (Negative) 11/18/25 14:57 RSV (PCR) Negative (Negative) 11/18/25 14:57 SARS-CoV-2 (PCR) Negative (Negative) 11/18/25 14:57 Blood Type A Positive 11/18/25 16:36 Rho(D) Type Rh positive 11/18/25 16:36 Antibody Screen Negative 11/18/25 16:36 Crossmatch See Detail 11/18/25 16:36 All radiology interpretation(s) finalized by discharge EKG Data EKG 1: I personally reviewed and interpreted this EKG as follows: Interpretation: EKG 11/21/2025 1451 supraventricular rhythm rate of 85 QTc [address] elevation noted. Previous EKG 06/24/2025 sinus rhythm Computer generated interpretation: Chest X-Ray 11/18/25 14:50 Impression: 1. Minimal patchy opacity over the surface of the right diaphragm. 2. Atherosclerosis and hyperinflation. EKG 2: I personally reviewed and interpreted this EKG as follows: Interpretation: EKG 11/18/2025 1524 sinus rhythm rate of 82. [place] 181 QTc [address] changes noted. Previous supraventricular rhythm now replaced by sinus rhythm. Compared to EKG done earlier same day Computer generated interpretation: Chest X-Ray 11/18/25 14:50 Impression: 1. Minimal patchy opacity over the surface of the right diaphragm. 2. Atherosclerosis and hyperinflation. EKG 3: I personally reviewed and interpreted this EKG as follows: Interpretation: EKG 11/18/2025 1613 sinus rhythm rate of 82 VA interval 190 QTc 414. No acute ST changes noted. Computer generated interpretation: Chest X-Ray 11/18/25 14:50 Impression: 1. Minimal patchy opacity over the surface of the right diaphragm. 2. Atherosclerosis and hyperinflation. Discharge Plan Discharge Patient Disposition: Home Clinical Impression: RLL pneumonia, Anemia Condition: Stable Prescriptions: New levofloxacin 750 mg tablet 750 mg PO DAILY 7 Days Qty: 7 0RF Held clopidogrel 75 mg tablet 75 mg PO QAM Hold Instructions: Resume on 11/25/25. aspirin 81 mg tablet,delayed release (DR/EC) 81 mg PO QAM Hold Instructions: Resume on 11/25/25. No Action gabapentin 300 mg capsule 300 mg PO TID tamsulosin 0.4 mg capsule 0.4 mg PO BEDTIME ascorbic acid (vitamin C) 500 mg capsule 500 mg PO DAILY finasteride 5 mg tablet 5 mg PO QAM ferrous sulfate 325 mg (65 mg iron) tablet 325 mg PO QAM Breztri Aerosphere 160-9-4.8 mcg/actuation HFA aerosol inhaler 2 inh inhalation BID pentoxifylline 400 mg tablet extended release 400 mg PO TID Qty: 90 4RF Rx Instructions: must administer with a meal/food dapagliflozin propanediol [Farxiga] 10 mg tablet 10 mg PO DAILY aripiprazole [Abilify] 10 mg tablet 10 mg PO .morning Qty: 90 2RF buspirone 30 mg tablet 30 mg PO BID Qty: 180 2RF mirtazapine 30 mg tablet 30 mg PO BEDTIME Qty: 90 2RF metformin 1,000 mg tablet 1,000 mg PO BID (DME) Diabetic shoes with 3 sets of insoles See Rx Instructions .Route .MEDSUPPLY Qty: 1 0RF Rx Instructions: As directed by Dot Kuhn metoclopramide HCl 5 mg tablet 5 mg PO TID nitroglycerin 0.4 mg tablet, sublingual See Rx Instructions .ROUTE .COMPLEX Qty: 25 2RF Dose Instruction: DISSOLVE ONE TABLET UNDER THE TONGUE EVERY 5 MINUTES NEEDED FOR CHEST PAIN. DO NOT EXCEED A TOTAL OF 3 DOSES IN 15 MINUTES Rx Instructions: DISSOLVE ONE TABLET UNDER THE TONGUE EVERY 5 MINUTES NEEDED FOR CHEST PAIN. DO NOT EXCEED A TOTAL OF 3 DOSES IN 15 MINUTES prazosin 1 mg capsule 2 mg PO BEDTIME Qty: 60 3RF docusate sodium 100 mg Tablet 100 mg PO BID PRN (Reason: Constipation) prednisolone acetate 1 % drops,suspension 1 drp ophthalmic (eye) QID Rx Instructions: left eye pravastatin 80 mg tablet 80 mg PO BEDTIME cyanocobalamin (vitamin B-12) 1,000 mcg/mL solution 1,000 mcg IM Q30D pantoprazole 40 mg tablet,delayed release (DR/EC) 40 mg PO BID albuterol sulfate [Ventolin HFA] 90 mcg/actuation HFA aerosol inhaler 2 puff INHALATION Q4H PRN (Reason: Shortness Of Breath) insulin glargine [Lantus Solostar U-100 Insulin] 100 unit/mL (3 mL) insulin pen 6 unit SUBCUT BEDTIME diclofenac sodium 1 % gel 4 g TOPICAL QID PRN (Reason: Pain) Discharge Orders: Discharge ED (Routine); Ordered 11/18/25 Ordered By: Russ Barnes Referrals: Diego Glass MD [Primary Care Provider, Family Practice] Discharge Diet: Usual diet Discharge Activity: Increase activity as tolerated Patient Instructions: Opioid Safety, Pain Management, Patient Portal & Reggie Instructions Activity Restrictions/Additional Instructions: Thank you for choosing [facility] for your healthcare needs today. It is very important that you follow up as instructed or that you return to the Emergency Department should you have concerns or if your condition changes or worsens in any way. Emergency department visits are focused on emergent conditions, in some cases you may require further evaluation on an outpatient basis. You were seen in the emergency room with complaint of generally not feeling well and a transient episode of low blood pressure. Chest x-ray showed a small right sided pneumonia. Hemoglobin has decreased again you have had this multiple times in the past. He reported stools which have endoscopies. Before but not scope of your stomach. There was no evidence of blood in your stool on exam. Will schedule you for a single unit of blood to be transfused tomorrow on outpatients. Will also set you up to see a surgeon for EGD. You are given antibiotic for the pneumonia. Return to the emergency room for further problems. Would hold clopidogrel (Please note that included in your discharge packet is information concerning opioid safety and pain management. This information is given to all patients were discharged from the ER regardless of their discharge diagnosis or the medicines they usually take or are prescribed.) Print Language: Divehi Coding Level of Care Code ED Junk Removal Specialist for Becca Oliver
--- NOTE | 2025-11-18 15:08 | ECG_ITS ---
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
[2025-11-18 15:13] LABS: Hematocrit 24.6 % (37-53); Hemoglobin 7.50 g/dL (11.27-16.99); Mean Corpuscular HGB Conc 30.5 g/dL (30-55); Mean Corpuscular Hemoglobin 25.3 pg (27-33); Mean Corpuscular Volume 83.1 fl (82-101); Nucleated Red Blood Cells % 0 %; Platelet Count 290 10^3/cmm (157-399); Red Blood Count 2.96 10^6/uL (3.85-5.65); White Blood Count 15.14 10^3/uL (3.29-11.43)
[2025-11-18 15:15] VITALS: BP 122/53; PULSE 94; RESP 18; O2SAT 90
[2025-11-18 15:31] LABS: Alanine Aminotransferase 10 U/L (0-41); Albumin Level 4.2 g/dL (3.5-5.2); Alkaline Phosphatase 88 U/L (40-130); Anion Gap 17.9 (5-19); Aspartate Amino Transferase 12 U/L (0-40); Blood Urea Nitrogen 45 mg/dL (8-23); Calcium 8.8 mg/dL (8.5-10.5); Carbon Dioxide 23 mmol/L (22-29); Chloride 97 mmol/L (98-107); Creatinine Clr Calc Pharmacy 46.4681; Globulin 2.4 g/dL (1.3-4.6); Glucose 201 mg/dL (65-115); Osmolality Calculated 291 mOsm/kg (285-295); Potassium 5.9 mmol/L (3.5-5.1); Sodium 132 mmol/L (136-145); Total Protein 6.6 g/dL (6.6-8.7)
[2025-11-18 15:32] LABS: Lactic Sepsis W/Reflex 1.7 mmol/L (0.5-2.2); Troponin(5th) Baseline 75 ng/L (0-15)
[2025-11-18 15:42] LABS: Respiratory Syncytial Virus Ce NEGATIVE (Negative); SARS-CoV-2 PCR NEGATIVE (Negative)
[2025-11-18 15:45] LABS: Glucose Urine UA 3+ (Normal); Nitrate Urine Negative (Negative); Specific Gravity, Urine 1.023 (1.005-1.030)
[2025-11-18 15:48] LABS: Add Urine Microscopic? YES
--- NOTE | 2025-11-18 16:10 | PC.PHAR ---
Pt has nurse Shanika Durand from [facility] [place] set up his medications for him.
--- NOTE | 2025-11-18 16:13 | ECG_ITS ---
[facility] Test Date: 2025-11-18 Pat Name: Hussein Fitch Department: Room: Gender: Male Tank Filler: : 1955 Requested By: Russ Moran Order Number: [id number] Reading MD: ESPERANZA RAUSCH Measurements Intervals [place] Rate: 82 P: 58 IN: 190 QRS: 88 QRSD: 102 T: 77 QT: 353 QTc: 414 Interpretive Statements SINUS RHYTHM MODERATE ST DEPRESSION [0.05+ mV ST DEPRESSION] Compared to ECG 11/18/2025 15:24:00 ST (T wave) deviation now present Electronically Signed On 11-20-2025 20:40:35 CENTRAL SUPPLY ASSISTANT by ESPERANZA RAUSCH [id number]
[2025-11-18 16:30] VITALS: BP 147/78; PULSE 93; O2SAT 94
[2025-11-18 16:43] VITALS: BP 139/65; PULSE 92; O2SAT 96
== END 2025-11-18 16:44 | disposition home or self-care (01) ==
PROVIDERS: Emergency Provider Family Medicine; PCP Family Medicine
DX: J18.9 Pneumonia, unspecified organism (principal); D64.9 Anemia, unspecified; Z79.84 Long term (current) use of oral hypoglycemic drugs; Z79.4 Long term (current) use of insulin; Z11.52 Encounter for screening for COVID-19; Z87.891 Personal history of nicotine dependence; E78.5 Hyperlipidemia, unspecified; J44.9 Chronic obstructive pulmonary disease, unspecified; I10 Essential (primary) hypertension; E11.42 Type 2 diabetes mellitus with diabetic polyneuropathy
CPT/HCPCS: 36415; 71045; 80053; 81001; 82550; 83605; 84484; 85025; 86850; 86900; 86920; 87040; 87400; 87426; 87637; 93005; 96360; 96361; 99285; J7030

== ENCOUNTER 2025-11-19 07:56 | Oncology outpatient (recurring) (ONCR) | payer MEDICARE, MEDICAID, SELFPAY ==
[2025-03-20 15:38] VITALS: BP 132/74; BMI 18.8
[2025-08-27 14:11] VITALS: BP 132/74; BMI 18.8
--- NOTE | 2025-11-19 15:32 | PC.NURSE ---
This patient was supposed to be here this morning for a blood transfusion. This nurse could not find any orders from the ER. Patient had been typed and screened the day before. I called over the ER and spoke to the charge nurse who let me know that she will talk to Dr. Barnes regarding the orders. Meanwhile the patient had been called from somebody in the ER telling him that he needs to come back to the ER. This nurse called back to the ER to find out what was going on and the charge nurse said that his Potassium was high and that they want him back in the ER and I let her know that I was still waiting on orders for the blood transfusion and she thought that we had already started. Judy Murrell the PA probate clerk at the [facility] was trying to get the blood transfusion orders from the ER and she let me know that the patient needs to go to the ER and I let her now that I have not started anything with this patient yet and she let me know that ER thought I had already started the blood transfusion. I then asked that since I have not done anything yet, do they want him now. Next thing I was told was that the patient needs to be taken to the ER and that he will get his blood transfusion done there. Tyree Mckenna LPN wheeled the patient to the ER.
--- NOTE | 2025-11-19 15:42 | PC.NURSE ---
Patient presented to [facility] at approx 8:00 for a scheduled blood transfusion. Patient had type and screen done in ER 11/18/25. Blue blood band was in place, I spoke with Jerel with [facility] blood bank to confirm blood had been ordered by ER and was ready, Jerel confirmed blood was ready for the patient. 20 guage IV was placed in the left forearm. Shortly after placing the IV, Judy Murrell came to me stating she had taken a phone call from Alannah from ER stating they would like us to bring the patient to them after his blood transfusion. Approx 5 minutes later she came back to me stating she had spoken with Maryann from ER, indicating we were to take the patient to the ER for the blood transfusion and to address an issue with patient's potassium. This information was verified with Viridiana Charles RN, patient was transported to ER via wheelchair by this nurse. ER admission staff verified with a call to the back that patient was to be admitted to ER, they were informed that patient had a 20 guage IV in his left arm and was not to be out of eyesight. Per their request the patient was parked in his wheelchair next to the triage door.
== END 2025-11-27 23:59 | disposition home or self-care (01) ==
PROVIDERS: PCP Family Medicine; Visit Provider Family Medicine
DX: Z53.9 Procedure and treatment not carried out, unspecified reason (principal)

== ENCOUNTER 2025-11-19 08:45 | Emergency (ER) | payer MEDICARE, MEDICAID, SELFPAY ==
[2025-08-27 14:11] VITALS: BP 132/74; BMI 18.8
[2025-11-19] VITALS (9 sets, daily range): BP systolic 145–178; BP diastolic 66–83; PULSE 80–104; RESP 17–18; TEMP 36.5–36.9; O2SAT 93–96; BMI 19.9
--- OUTSIDE RECORDS SUMMARY | 2025-11-19 08:50 | XMS_ITS | Clinical Summary ---
Author Organization [facility] [facility] Address [address] [place] [address] Phone Care Team Providers Care Driving School Instructor Name Role Phone Wendy Nuñez Primary Care Provider [phone] Allergies No known active allergies Medications tamsulosin [...] Comments Blood Pressure 156/74 10/16/2019 10:59 AM INFECTIOUS DISEASES PHYSICIAN Pulse 100 10/16/2019 10:59 AM INFECTIOUS DISEASES PHYSICIAN Temperature - - Respiratory Rate - - Oxygen Saturation - - Inhaled Oxygen Concentration - - Weight 65.3 kg (144 lb) 12/28/2019 10:17 AM INFECTIOUS DISEASES PHYSICIAN Height 180.3 cm (5' 11 ) 12/28/2019 10:17 AM INFECTIOUS DISEASES PHYSICIAN Body Mass Index 20.08 12/28/2019 10:17 AM INFECTIOUS DISEASES PHYSICIAN Plan of Treatment Health Maintenance Due Date [...] series) 2030 Insurance MEDICAID [place] Care Teams Driving School Instructor Relationship Specialty Start Date End Date Wendy Nuñez PA [address] [place] [address] PCP - General Physician Yard Pipe Grader 10/16/19
--- OUTSIDE RECORDS SUMMARY | 2025-11-19 08:51 | XMS_ITS | Clinical Summary ---
Author Organization [employer] Address [address] Attn: Epic Prelude ADT JAVI MALHOTRA [address] Care Team Providers Care Territory Service Representative Name Role Phone Wendy Nuñez Primary Care Provider [phone] Allergies No known active allergies Medications PEG-Electrolyte [...] on file Legal Sex Male 1:53 PM NURSE EDUCATOR Gender Identity Not on file Sexual Orientation Not on file Last Filed Vital Signs Vital Sign Reading Time Taken Comments Blood Pressure 156/74 10/16/2019 10:59 AM NURSE EDUCATOR Pulse 100 10/16/2019 10:59 AM NURSE EDUCATOR Temperature - - Respiratory Rate - - Oxygen Saturation - - Inhaled Oxygen Concentration - - Weight 65.3 kg (144 lb) 12/28/2019 10:17 AM NURSE EDUCATOR Height 180.3 cm (5' 11 ) 12/28/2019 10:17 AM NURSE EDUCATOR Body Mass Index 20.08 12/28/2019 10:17 AM NURSE EDUCATOR Plan of Treatment Health Maintenance Due Date [...] - 1-dose 75+ series) 2030 Care Teams Territory Service Representative Relationship Specialty Start Date End Date Wendy Nuñez PA [address] [place] [address] PCP - General Physician Cloth Printing Back Tender 10/16/19
--- NOTE | 2025-11-19 09:19 | ECG_ITS ---
[facility] Date: 2025-11-19 Pat Name: Hussein Fitch Department: Room: Gender: Male Devops Developer: : 1955 Requested By: Russ Moran Order Number: [id number] Reading MD: ESPERANZA RAUSCH Measurements Intervals [place] Rate: 89 P: 65 ND: 177 QRS: 96 QRSD: 94 T: 50 QT: 335 QTc: 408 Interpretive Statements SINUS RHYTHM BORDERLINE RIGHT AXIS DEVIATION [QRS AXIS > 90] Compared to ECG 11/18/2025 16:13:26 ST (T wave) deviation no longer present Electronically Signed On 11-19-2025 11:52:55 AUTO MOTOR MECHANIC by ESPERANZA RAUSCH [id number] [email or web address]
[2025-11-19 09:28] LABS: Hematocrit 25.7 % (37-53); Hemoglobin 7.70 g/dL (11.27-16.99); Mean Corpuscular HGB Conc 30.0 g/dL (30-55); Mean Corpuscular Hemoglobin 25.8 pg (27-33); Mean Corpuscular Volume 86.2 fl (82-101); Nucleated Red Blood Cells % 0 %; Platelet Count 286 10^3/cmm (157-399); Red Blood Count 2.98 10^6/uL (3.85-5.65); White Blood Count 9.66 10^3/uL (3.29-11.43)
--- NOTE | 2025-11-19 09:28 | W.ED.RECABL ---
HPI - Recheck/Abnormal Lab/Rx General: Chief Complaint: Recheck/Abnormal Lab/Rx Stated Complaint: needs a transfusion Time Seen by Provider: 11/19/25 09:16 History of Present Illness: 70-year-old man with a history of PTSD, GERD, peripheral neuropathy, type 2 diabetes, anemia, peripheral artery disease, COPD, hyperlipidemia, hypertension and schizoaffective disorder who presents emergency room with concerns for hyperkalemia and anemia. She was seen in the ER yesterday and was planned to have a transfusion today but for some reason this was unable to be done so he was sent to the emergency room. Also needed reevaluated for the hyperkalemia. He had come to the emergency room yesterday with complaints of low brush blood pressure and dizziness. He was diagnosed with right lower lobe pneumonia and anemia. Sent home on Levaquin with plan for transfusion today Related Data Home Medications ?Medication ?Instructions ?Recorded ?Confirmed ascorbic acid (vitamin C) 500 mg 500 mg PO DAILY 12/11/19 11/18/25 capsule finasteride 5 mg tablet 5 mg PO QAM 12/11/19 11/18/25 gabapentin 300 mg capsule 300 mg PO TID 12/11/19 11/18/25 tamsulosin 0.4 mg capsule 0.4 mg PO BEDTIME 12/11/19 11/18/25 docusate sodium 100 mg tablet 100 mg PO BID PRN Constipation 06/29/21 11/18/25 ferrous sulfate 325 mg (65 mg 325 mg PO QAM 07/01/22 11/18/25 iron) tablet metformin 1,000 mg tablet 1,000 mg PO BID 06/13/23 11/18/25 budesonide 160 mcg-glycopyr 9 2 inh inhalation BID 12/26/23 11/18/25 mcg-formot 4.8 mcg/actuation HFA inhaler (Breztri Aerosphere) cyanocobalamin (vitamin B-12) 1,000 mcg IM Q30D 01/24/24 11/18/25 1,000 mcg/mL injection solution aspirin 81 mg tablet,delayed 81 mg PO QAM 02/24/24 11/18/25 release Held on 11/18/25. Instructions: Resume on 11/25/25. clopidogrel 75 mg tablet 75 mg PO QAM 02/24/24 11/18/25 Held on 11/18/25. Instructions: Resume on 11/25/25. pravastatin 80 mg tablet 80 mg PO BEDTIME 02/24/24 11/18/25 prednisolone acetate 1 % eye 1 drp ophthalmic (eye) QID 02/24/24 11/18/25 drops,suspension dapagliflozin propanediol 10 mg 10 mg PO DAILY 10/22/24 11/18/25 tablet (Farxiga) metoclopramide HCl 5 mg tablet 5 mg PO TID 12/04/24 11/18/25 albuterol sulfate 90 mcg/actuation 2 puff inhalation Q4H PRN 04/06/25 11/18/25 aerosol inhaler (Ventolin HFA) Shortness Of Breath diclofenac sodium 1 % topical gel 4 g topical QID PRN Pain 04/06/25 11/18/25 insulin glargine 100 unit/mL (3 6 unit SUBCUT BEDTIME 04/06/25 11/18/25 mL) subcutaneous pen (Lantus Solostar U-100 Insulin) pantoprazole 40 mg tablet,delayed 40 mg PO BID 04/06/25 11/18/25 release Previous Rx's ?Medication ?Instructions ?Recorded pentoxifylline 400 mg 400 mg PO TID #90 tabs 06/28/24 tablet,extended release Diabetic shoes with 3 sets of #1 ea 11/06/24 insoles aripiprazole 10 mg tablet (Abilify) 10 mg PO .morning #90 tabs 06/11/25 buspirone 30 mg tablet 30 mg PO BID #180 tabs 06/11/25 mirtazapine 30 mg tablet 30 mg PO BEDTIME #90 tabs 06/11/25 nitroglycerin 0.4 mg sublingual See Rx Instructions .Route 09/25/25 tablet .COMPLEX #25 tabs prazosin 1 mg capsule 2 mg (2 x 1 mg) PO BEDTIME #60 caps 10/07/25 levofloxacin 750 mg tablet 750 mg PO DAILY 7 days #7 tabs 11/18/25 Allergies Allergy/AdvReac Type Severity Reaction Status Date / Time No Known Allergies Allergy Verified 11/18/25 10:49 Review of Systems Narrative: Constitutional symptoms: Negative except as documented in HPI. Skin symptoms: Negative except as documented in HPI. Eye symptoms: Negative except as documented in HPI. ENMT symptoms: Negative except as documented in HPI. Respiratory symptoms: Negative except as documented in HPI. Cardiovascular symptoms: Negative except as documented in HPI. Gastrointestinal symptoms: Negative except as documented in HPI. Genitourinary symptoms: Negative except as documented in HPI. Musculoskeletal symptoms: Negative except as documented in HPI. Neurologic symptoms: Negative except as documented in HPI. Psychiatric symptoms: Negative except as documented in HPI. Endocrine symptoms: Negative except as documented in HPI. PFSH ED PFSH: Medical History (Updated 11/19/25 @ 11:25 by Milena Thomas MD) Chronic post-traumatic stress disorder Proctocolitis History of MRSA infection GERD (gastroesophageal reflux disease) Peripheral neuropathy Type 2 diabetes mellitus Psychiatric care Anemia Peripheral arterial disease COPD (chronic obstructive pulmonary disease) Dyslipidemia Essential hypertension Schizoaffective disorder, depressive type BPH with obstruction/lower urinary tract symptoms Surgical History History of coronary artery stent placement History of eye surgery x3 History of surgery on arm Multiple procedures on the right arm related to MRSA infection H/O foot surgery x 2 for diabetic foot ulcer H/O colonoscopy yrs ago H/O esophagogastroduodenoscopy Status post femoral-popliteal bypass surgery Left femoropopliteal bypass in 2013 with redo bypass in 2014 S/P angioplasty Angioplasty with stent placement to the right leg Family History Family/Other Stroke Cancer Diabetes Hypertension Unknown Cancer Father , at age 59 Alcoholic Mother Lung disease Stroke Denies family history of Anesthesia complication Bleeding disorder Social History Smoking and tobacco/nicotine status: former use of tobacco/nicotine Second hand smoke exposure: No Alcohol intake: former Substance/Drug Use: never Household members: other Details: room mate Marital status: Current occupational status: disabled Current gender identity: Male Physical Exam Narrative: EXAM NARRATIVE: General: Alert, no acute distress. Skin: Warm, dry. Head: Normocephalic, atraumatic. Neck: Supple, trachea midline. Eye: Extraocular movements are intact. Ears, nose, mouth and throat: mucosa moist. Cardiovascular: Regular, Normal peripheral perfusion. Respiratory: Lungs are clear to auscultation, respirations are non-labored, breath sounds are equal, Symmetrical chest wall expansion. Gastrointestinal: Soft, Nontender, Non distended Musculoskeletal: Normal ROM, no deformity. Neurological: Alert and oriented, No focal neurological deficit observed. Psychiatric: Cooperative, appropriate mood & affect. Course Vital Signs: Vital signs: Vital Signs Temperature 98.0 F 11/19/25 11:07 Pulse Rate 100 11/19/25 11:15 Respiratory Rate 18 11/19/25 11:07 Blood Pressure 149/66 11/19/25 11:15 Pulse Oximetry 93 11/19/25 11:15 Oxygen Delivery Me thod Room Air 11/19/25 11:15 MDM - Recheck/Abnormal Lab/Rx Medical Decision Making Medical decision making Patient's reason for coming to the emergency room: Social determinants: I reviewed the patient's medical record. 70-year-old man with a history of PTSD, GERD, peripheral neuropathy, type 2 diabetes, anemia, peripheral artery disease, COPD, hyperlipidemia, hypertension and schizoaffective disorder. I reviewed yesterday's note. I reviewed the patient's current home meds Alternate historians: None Differential diagnosis: including but not limited to and based on the above HPI, review of systems and physical exam: Concern for hyperkalemia. Repeating labs and EKG for this. Also has documented anemia and was able to be transfused at transfusion center so this has been ordered as well. Orders placed to evaluate differential diagnosis based on the above differential, HPI and physical exam Lab Review: Laboratory results were reviewed and interpreted by myself the emergency room physician. No leukocytosis. Patient is anemic. Has some chronic renal insufficiency that seems to improve slightly. Potassium is mildly elevated at 5.6. Reexamination: Patient remained stable. No increased work of breathing. No altered mental status. No focal motor deficits. Assessment and plan: Anemia Hyperkalemia ? Transfused PRBCs and Kayexalate given. - Discharged home - Discussed plan with patient. Answered any questions. - Evaluation and treatment of this problem were appropriate in the emergency setting. Lab Data 11/19/25 09:20 11/19/25 09:20 Laboratory Results WBC 9.66 10^3/uL (3.29-11.43) 11/19/25 09:20 RBC 2.98 10^6/uL (3.85-5.65) L 11/19/25 09:20 Hgb 7.70 g/dL (11.27-16.99) L 11/19/25 09:20 Hct 25.7 % (37-53) L 11/19/25 09:20 MCV 86.2 fl (82-101) 11/19/25 09:20 MCH 25.8 pg (27-33) L 11/19/25 09:20 MCHC 30.0 g/dL (30-55) 11/19/25 09:20 RDW 16.4 % (12.1-15.1) H 11/19/25 09:20 Plt Count 286 10^3/cmm (157-399) 11/19/25 09:20 MPV 9.4 fL (7.4-10.4) 11/19/25 09:20 Neut % (Auto) 76.8 % 11/19/25 09:20 Lymph % (Auto) 12.2 % 11/19/25 09:20 Sharp % (Auto) 6.6 % 11/19/25 09:20 Eos % (Auto) 3.5 % 11/19/25 09:20 Baso % (Auto) 0.4 % 11/19/25 09:20 Neut # (Auto) 7.41 10^3/uL (1.8-7.7) 11/19/25 09:20 Lymph # (Auto) 1.2 10^3/uL (0.8-4.8) 11/19/25 09:20 Sharp # (Auto) 0.6 10^3/uL (0.2-0.9) 11/19/25 09:20 Eos # (Auto) 0.3 10^3/uL (0.0-0.8) 11/19/25 09:20 Baso # (Auto) 0.0 10^3/uL (0.0-0.1) 11/19/25 09:20 Nucleated RBC % (auto) 0 % 11/19/25 09:20 Nucleated RBCs # 0.0 /100WBC 11/19/25 09:20 Sodium 132 mmol/L (136-145) L 11/19/25 09:20 Potassium 5.6 mmol/L (3.5-5.1) H 11/19/25 09:20 Chloride 99 mmol/L (98-107) 11/19/25 09:20 Carbon Dioxide 22 mmol/L (22-29) 11/19/25 09:20 Anion Gap 16.6 (5-19) 11/19/25 09:20 BUN 38 mg/dL (8-23) H 11/19/25 09:20 Creatinine 1.3 mg/dL (0.7-1.2) H 11/19/25 09:20 GFR Calculation 54.6 mL/min (90-130) L 11/19/25 09:20 Glucose 155 mg/dL (65-115) H 11/19/25 09:20 Calculated Osmolality 286 mOsm/kg (285-295) 11/19/25 09:20 Calcium 9.1 mg/dL (8.5-10.5) 11/19/25 09:20 Magnesium 2.3 mg/dL (1.7-2.3) 11/19/25 09:20 Blood Type A Positive 11/19/25 09:36 Rho(D) Type Rh positive 11/19/25 09:36 Antibody Screen Negative 11/19/25 09:36 Crossmatch See Detail 11/19/25 09:36 No radiology studies performed this visit Discharge Plan Discharge Patient Disposition: Home Clinical Impression: Anemia, Hyperkalemia Condition: Stable Prescriptions: No Action gabapentin 300 mg capsule 300 mg PO TID tamsulosin 0.4 mg capsule 0.4 mg PO BEDTIME ascorbic acid (vitamin C) 500 mg capsule 500 mg PO DAILY finasteride 5 mg tablet 5 mg PO QAM ferrous sulfate 325 mg (65 mg iron) tablet 325 mg PO QAM Breztri Aerosphere 160-9-4.8 mcg/actuation HFA aerosol inhaler 2 inh inhalation BID pentoxifylline 400 mg tablet extended release 400 mg PO TID Qty: 90 4RF Rx Instructions: must administer with a meal/food dapagliflozin propanediol [Farxiga] 10 mg tablet 10 mg PO DAILY aripiprazole [Abilify] 10 mg tablet 10 mg PO .morning Qty: 90 2RF buspirone 30 mg tablet 30 mg PO BID Qty: 180 2RF mirtazapine 30 mg tablet 30 mg PO BEDTIME Qty: 90 2RF metformin 1,000 mg tablet 1,000 mg PO BID (DME) Diabetic shoes with 3 sets of insoles See Rx Instructions .Route .MEDSUPPLY Qty: 1 0RF Rx Instructions: As directed by Dot Kuhn metoclopramide HCl 5 mg tablet 5 mg PO TID nitroglycerin 0.4 mg tablet, sublingual See Rx Instructions .ROUTE .COMPLEX Qty: 25 2RF Dose Instruction: DISSOLVE ONE TABLET UNDER THE TONGUE EVERY 5 MINUTES NEEDED FOR CHEST PAIN. DO NOT EXCEED A TOTAL OF 3 DOSES IN 15 MINUTES Rx Instructions: DISSOLVE ONE TABLET UNDER THE TONGUE EVERY 5 MINUTES NEEDED FOR CHEST PAIN. DO NOT EXCEED A TOTAL OF 3 DOSES IN 15 MINUTES prazosin 1 mg capsule 2 mg PO BEDTIME Qty: 60 3RF docusate sodium 100 mg Tablet 100 mg PO BID PRN (Reason: Constipation) prednisolone acetate 1 % drops,suspension 1 drp ophthalmic (eye) QID Rx Instructions: left eye clopidogrel 75 mg tablet 75 mg PO QAM aspirin 81 mg tablet,delayed release (DR/EC) 81 mg PO QAM pravastatin 80 mg tablet 80 mg PO BEDTIME cyanocobalamin (vitamin B-12) 1,000 mcg/mL solution 1,000 mcg IM Q30D pantoprazole 40 mg tablet,delayed release (DR/EC) 40 mg PO BID albuterol sulfate [Ventolin HFA] 90 mcg/actuation HFA aerosol inhaler 2 puff INHALATION Q4H PRN (Reason: Shortness Of Breath) insulin glargine [Lantus Solostar U-100 Insulin] 100 unit/mL (3 mL) insulin pen 6 unit SUBCUT BEDTIME diclofenac sodium 1 % gel 4 g TOPICAL QID PRN (Reason: Pain) levofloxacin 750 mg tablet 750 mg PO DAILY 7 Days Qty: 7 0RF Discharge Orders: Discharge ED (Routine); Ordered 11/19/25 Ordered By: Milena Thomas Referrals: Diego Glass MD [Primary Care Provider, Family Practice] Discharge Diet: Usual diet Discharge Activity: Increase activity as tolerated Patient Instructions: Opioid Safety, Pain Management, Patient Portal & Reggie Instructions Activity Restrictions/Additional Instructions: Continue antibiotics that you are placed on yesterday. Follow-up with your PCP as soon as possible Thank you for choosing [facility] for your healthcare needs today. You have been screened and evaluated and felt safe for discharge. Health conditions do change or evolve sometimes and as such it is important that you follow up with your Primary Doctor to be re checked, 3-5 days is a general good time frame for follow up. You are always welcome to return to the ED for re assessment if your symptoms are worsening or you have new concerns. (Please note that included in your discharge packet is information concerning opioid safety and pain management. This information is given to all patients who are discharged from the ER regardless of their discharge diagnosis or the medicines they usually take or are prescribed.) Print Language: Cymro Coding Level of Care Code ED Teles[employer] Professional for Becca Oliver
[2025-11-19 09:55] LABS: Anion Gap 16.6 (5-19); Blood Urea Nitrogen 38 mg/dL (8-23); Calcium 9.1 mg/dL (8.5-10.5); Carbon Dioxide 22 mmol/L (22-29); Chloride 99 mmol/L (98-107); Glucose 155 mg/dL (65-115); Magnesium 2.3 mg/dL (1.7-2.3); Osmolality Calculated 286 mOsm/kg (285-295); Potassium 5.6 mmol/L (3.5-5.1); Sodium 132 mmol/L (136-145)
[2025-11-19] MEDS: calcium gluconate 0.1 gm/mL 10% SDV 10mL 1 GM IVP (13:15)
== END 2025-11-19 13:47 | disposition home or self-care (01) ==
PROVIDERS: Family Medicine; Emergency Provider Emergency Medicine; PCP Family Medicine
DX: D64.9 Anemia, unspecified (principal); E87.5 Hyperkalemia; Z79.84 Long term (current) use of oral hypoglycemic drugs; Z79.02 Long term (current) use of antithrombotics/antiplatelets; Z79.82 Long term (current) use of aspirin; Z79.4 Long term (current) use of insulin; Z87.891 Personal history of nicotine dependence; E78.5 Hyperlipidemia, unspecified; J44.9 Chronic obstructive pulmonary disease, unspecified; I10 Essential (primary) hypertension; E11.42 Type 2 diabetes mellitus with diabetic polyneuropathy
CPT/HCPCS: 36415; 36430; 80048; 83735; 85025; 86850; 86900; 86920; 93005; 96374; 99284; J0612; J9999; P9040

== ENCOUNTER 2025-11-24 19:27 | Emergency (ER) | payer MEDICARE, MEDICAID, SELFPAY ==
[2025-08-27 14:11] VITALS: BP 132/74; BMI 18.8
[2025-11-24] VITALS (10 sets, daily range): BP systolic 120–146; BP diastolic 60–74; PULSE 84–106; RESP 14–20; TEMP 36.4; O2SAT 92–99; BMI 19.2
--- OUTSIDE RECORDS SUMMARY | 2025-11-24 19:34 | XMS_ITS | Data Portability ---
Author Organization JAVI - Kali Arnett [facility] Address [address] [address] Care Team Providers Care Manager City Name Role Phone AGUSTÍN GLASS Primary Care Provider [phone] Assessment Encounter Date Assessment Date Assessment LastModified [...] 2024 025 [facility], [address], [address], [place], [address], 09/04/2025 14:42:26 Referral physical therapist referral 2024 025 [email or web address], [address], [place], [address], 08/15/2025 12:03:15 wound care referral [address] [facility], [address] [place], [address], 08/13/2025 11:33:52 Procedures None recorded. Surgeries None recorded. Imaging None recorded. Medication Orders None recorded. Patient TargetsNo targets recorded. Patient Instructions Encounter Date Encounter Id Patient Instructions Last Modified By Organization Details Last Modified Time 09/04/2025 [id number] - Have your A1c checked in the lab today. - Continue avoiding smoking, and maintain a healthy lifestyle. - Investigate local suppliers in [place] for wheelchair options. - Prepare for your colonoscopy on September 17, 2025, as instructed. - Return for a follow-up appointment in three months. [email or web address] Not available 09/04/2025 14:20:54 During the visit , we discussed the patient's stable diabetes management, noting his year-long smoking cessation, which is commendable. We addressed ongoing difficulties in obtaining a motorized wheelchair and considered exploring local suppliers in [place]. Scheduled the patient's colonoscopy for September 17, 2025, and ensured he is prepared for the procedure. Advised follow-up in three months for diabetes reassessment and emphasized maintaining healthy lifestyle modifications. [email or web address] Not available 09/04/2025 14:20:54 11/13/2025 [id number] - You have received a steroid injection [...] Reason for Referral Referring Physician: Agustín Glass, [facility] Medicine, Encounter Date: 07/23/2025 Physical Therapist Referral for Difficulty mobilizing using mobility aids Motorized wheelchair fitting/eval Referring Physician: Agustín Glass [facility] Medicine, Encounter Date: 08/07/2025 Results Created Date Observation Date Name Description Value Unit Range Abnormal Flag Note LastModifiedBy Organization Detail LastModifiedTime 09/04/2009/04/2025 HBA1C hemaglobin A1C 7.1 4.2-6. 5 high Not Available [facility] [address] [address], [place], [address], 09/04/2025 14:42:26 Result Notes None recorded. 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 00266931892 02 Active 2019 TYPE 2 DIABETES MELLITUS WITH PRESSURE CALLUS; Impressi on: left foot.; Recorded 05/07/20 20 12:35PM by Lita Mccurdy LPN, Annotati on/Adden dum; Promoted ; acuity set as *; JAVI Roque - [facility] 3 19:10:23 Type 2 diabetes mellitus without complica tion 253563337 Completed 201902/14/2025 DIABETES MELLITUS ; Recorded 05/07/20 12:36PM by Lita Mccurdy LPN, Historic al Summary; Promoted ; acuity set as *; Removal Reason: Dacia hines [facility] 5 10:27:44 Large prostate 090100830 Active 2020 BPH (BENIGN PROSTATI C HYPERTRO PHY); Recorded 12/29/19 1:17PM by Lita Mccurdy LPN, Historic al Summary; Promoted ; acuity set as *; MALORIE SOSA donny, [facility] 3 19:10:15 Type 2 diabetes mellitus 58457544 Active 2022 Agustín Glass MD [address] [place] [phone] 5, [facility] 5 14:23:45 Anemia 601712711 Completed 202202/14/2025 Removal Reason: Dacia hines [facility] 5 10:33:44 Benign prostati c hyperpla wilfred 535677237 Active 2022 Agustín Glass MD [address] [place] [phone] 5, [facility] 3 14:05:18 Chronic obstruct yoanna pulmonar y disease 71271363 Active 2022 Agustín Glass MD [address] [place] [phone] 5, [facility] 3 14:05:20 Peripher al arterial disease 464565081 Active 2022 Agustín Glass MD [address] [place] [phone] 5, [facility] 3 14:05:26 Mixed anxiety and depressi ve disorder 893854203 Active 2022 Agustín Glass MD [address] [place] [address], [address] 5, [facility] L[facility]ie 3 14:05:22 Peripher al vascular disease 343036121 Active 2022 Agustín Glass MD [address] [place] [address], [address] 5, [facility] 3 14:05:27 Neuropat hy 650078526 Completed 202202/14/2025 Removal Reason: Dacia hines [facility] 5 10:32:57 Schizoaf fective disorder 08640220 Active 2022 Agustín Glass MD [address] [place] [address], [address], [facility] 5 14:23:33 Gastroes ophageal reflux disease 696388772 Active 2022 MALORIE hines [facility] 3 19:10:27 Malaise and fatigue 340285530 Active 2022 MALORIE hines [facility] 3 19:10:09 Smoker 82008897 Completed 202202/14/2025 Removal Reason: Dacia hines [facility] LS[facility]ieLS[facility]ie[facility]ie 5 10:30:52 Chronic pain 37401222 Active 2022 Lindsey hines [facility] 5 10:28:50 Unintent ional weight loss 124610182 Completed 202302/14/2025 Lindsey hines [facility] 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 5 10:29:56 Microalb uminuric diabetic nephropa thy 579151199 Active 2023 Lindsey hines [facility] 5 10:30:04 Low blood pressure 97058557 Completed 202302/14/2025 Agustín Glass MD [address] [place], [address], [facility] 5 11:20:27 Tobacco dependen ce syndrome 73307488 Active 2023 Lindsey hines [facility] 5 10:30:58 Physical decondit ioning 95514439841 102 Active 2023 JULISSA hines, [facility] 14:51:54 Difficul ty mobilizi ng using mobility aids 285503575 Active 2023 Lindsey hines [facility] 5 10:29:32 Dyspnea on exertion 61214767 Active 2023 Lindsey hines [facility] 5 10:29:48 Atypical angina 613420014 Active 2023 Lindsey hines [facility] 5 10:28:07 Acute bacteria l bronchit is 295384292 Completed 202402/14/2025 Lindsey hines [facility] 5 10:27:57 Multiple nodules of lung 455121247 Active 2024 Lindsey hines [facility] 5 10:31:20 Tricuspi d valve regurgit ation 272654137 Active 2024 Agustín Glass MD [address] [place] [address], [phone] [place] [address], L.L.CSusie 5 15:00:26 Trochant juvencio bursitis of left hip 04826030871 9103 Active 2024 Lindsey hines [facility] 5 12:54:20 CT of chest abnormal 62596084534 644579 Active 2024 Lindsey hines [facility] 5 12:54:29 Acute kidney injury 42223415 Active 2024 Lindsey hines [facility] 12:54:35 Pneumoni a 048116776 Active 2024 Agustín Glass MD [address] [place] [address], [address] 5, [facility] 04:57:35 Low blood pressure 19663214 Active 2024 Agustín Glass MD [address] [place] [address], [address], [facility], MarcyCSusie 11:20:26 Wound of skin 760381594 Active 2024 Agustín Glass MD [address] [place] [address], [address], [facility], Kali 17:45:15 Pressure injury of left buttock stage II Active 2024 Agustín Glass MD [address] [place] [address], [address], [facility], Kali 17:45:43 Problem Notes None recorded. Procedures Surgical History Date Name Laterality Status Provider Name and Address Organization Details Recorded Time 11/13/20 25 Joint Inj Kenalog- Shoulder, Hip, Knee completed Agustín Glass MD [address] [place] [address], [phone], [facility] 11/16/2025 09:54:58 04/26/20 24 Colonoscopy completed JULISSA FLOWERS [facility] 05/14/2024 17:00:40 01/26/20 24 endoscopy and biopsy of upper gastrointestinal tract completed JULISSA FLOWERS [facility] 01/30/2024 16:12:18 procedure on eye completed Andrade George [facility] 03/12/2025 13:30:48 procedure on lower leg completed Andrade George [facility], LZoe 03/12/2025 13:31:14 procedure on lung completed Lindseyila Mcelroy [facility] LS[facility]ieLC[facility]ar 07/23/2025 17:38:00 Imaging Results None recorded. [...] two times daily 07/19 completed vo KM/dh; 54080; Recorded 05/14/20 8:28AM by Lita Mccurdy LPN (Authori shanice through Wendy Nuñez PA-C), Refill Request; Refill Quantity : 60; Tablet; Not Available Not Available Not Available Vitamin-C daily 01/25 completed 0; Recorded 12/24/19 8:02AM by Lita Mccurdy LPN, Office Visit; Not Available Not Available Not Available Avodart daily 07/19 completed PT MUST BE SEEN FOR MORE KM/DH; 56721; Recorded 12/29/19 1:17PM by Lita Mccurdy LPN (Authori shanice through Wendy Nuñez PA-C), Historic al Summary; Refill Quantity : 0; Not Available Not Available Not Available aripipraz ole daily 07/19 completed 0; Recorded 12/24/19 8:02AM by Lita Mccurdy LPN, Office Visit; Not Available Not Available Not Available Truetrack Test Strips daily 07/25 completed DX: Diabetes Mellitus E11.9 vo KM/dh /delaney; 00602; Recorded 12/24/19 8:02AM by Lita Mccurdy LPN [...] grams TO affected area FOUR TIMES DAILY 2024 active Not Available Not Available Not Avai lable GaviLyte- G 236 gram-22.7 4 gram-6.74 gram-5.86 [...] Not Available Not Available No t Available [facility] COVID-19 Antigen Rapid Home Test kit DIRECTED 04/21 completed Not Available Not Available Not Available Vitals Date Recorded Body height Body mass index (BMI) Body weight Body temperature Oxygen saturation Heart rate Systolic And Diastolic Provider Name and Address Organization Details Last Updated DateTime 5 177.8 cm 19.1 kg/m2 39646.7 9 g 97.6 [degF] 96 % 95 /min 122/66 mm[Hg] [facility] 08/07/202 5 16:10:30 Date Recorded Body height Body mass index (BMI) Body weight Body temperature Oxygen saturation Heart rate Respiratory rate Systolic And Diastolic Provider Name and Address Organization Details Last Updated DateTime 5 177.8 cm 18.5 kg/m2 26793.7 g 97.4 [degF] 98 % 92 /min 16 /min 120/72 mm[Hg] Lindsey [facility] 5 17:33:18 Date Recorded Body height Body mass index (BMI) Body weight Oxygen saturation Heart rate Systolic And Diastolic Provider Name and Address Organization Details Last Updated DateTime 5 177.8 cm 19.4 kg/m2 01698.9 7 g 97 % 82 /min 122/65 mm[Hg] Nadira Stone [facility] 5 17:16:50 Date Recorded Body height Body mass index (BMI) Body weight Body temperature Respiratory rate Oxygen saturation Heart rate Systolic And Diastolic Provider Name and Address Organization Details Last Updated DateTime 5 177.8 cm 19.8 kg/m2 71148.7 5 g 97 [degF] 16 /min 98 % 84 /min 128/64 mm[Hg] Lindsey [facility] 5 14:00:15 Date Recorded Body height Body mass index (BMI) Body weight Oxygen saturation Heart rate Respiratory rate Systolic And Diastolic Provider Name and Address Organization Details Last Updated DateTime 5 177.8 cm 20.6 kg/m2 39000.8 1 g 97 % 88 /min 18 /min 130/68 mm[Hg] Jesusita Nixon [facility] 5 17:46:43 Social History Question Answer Notes LastModified by Organizat ion Details LastModified Time Tobacco Smoking Status Former Smoker quit smoking 9 months ago Kerry hines [facility] 07/04/2025 16:15:08 Are You Blind Or Do You Have Difficulty Seeing? No Information not available 10/24/2023 What Is Your Level Of Caffeine Consumption? Occasional Information not available 06/09/2023 Are You Deaf Or Do You Have Serious Difficulty Hearing? No Information not available 10/24/2023 When Did You Quit Smoking? 16+yearssincel fergorantalisha Spring 2023 [email or web address] Information not available 07/23/2025 Which Of Your Hands Is Dominant? Right Information not available 10/24/2023 What Was The Date Of Your Most Recent Tobacco Screening? 08/07/2025 [email or web address] Information not available 08/07/2025 What Is Your Current Pack Years? 30ormorepackye ars [email or web address] Information not available 12/12/2024 What Is Your Relationship Status? Information not available 06/09/2023 At What Age Did You Start Smoking Tobacco? 15 [email or web address] Information not available 07/23/2025 Have You Recently [...] virus, trivalent, preservative 9 completed JULISSA hines, [facility] 08/15/2023 14:03:08 Influenza, split virus, trivalent, preservative 6 completed JULISSA hines [facility] 08/15/2023 14:03:08 Influenza, split virus, trivalent, preservative 3 completed JULISSA hines [facility] 08/15/2023 14:03:08 Influenza, split virus, trivalent, preservative 7 completed JULISSA hines [facility] 08/15/2023 14:03:08 Influenza, split virus, trivalent, preservative 8 completed JULISSA hines [facility] 08/15/2023 14:03:08 Influenza, high-dose, quadrivalent, 3 completed JULISSA hines [facility] 08/15/2023 14:03:07 Pneumococcal conjugate PCV20, polysaccharide NUK324 conjugate, adjuvant, PF 3 completed JULISSA hines [facility] 08/15/2023 14:03:08 Influenza, high-dose, quadrivalent, PF 2 completed MALORIE hines [facility] 06/08/2023 14:17:50 COVID-19, mRNA, LNP-S, PF, 100 mcg/0.5mL dose or 50 mcg/0.25mL dose 1 completed MALORIE hines [facility] 06/08/2023 14:17:50 COVID-19, mRNA, LNP-S, PF, 100 mcg/0.5mL dose or 50 mcg/0.25mL dose 1 completed MALORIE hines [facility] 06/08/2023 14:17:51 influenza, split (incl. purified surface antigen) 0 completed MALORIE hines [facility] 06/08/2023 14:17:51 Influenza, split virus, quadrivalent, PF 1 completed MALORIESA IAN hines [facility] 06/08/2023 14:17:51 zoster recombinant 3 completed Not Available [facility] 11/13/2025 17:25:09 Influenza, high-dose, trivalent, PF 5 completed Not Available [facility] 11/13/2025 17:25:09 pneumococcal polysaccharide PPV23 5 completed Not Available [facility] 11/13/2025 17:25:09 Influenza, high-dose, trivalent, PF 5 completed Not Available [facility] 11/13/2025 17:25:09 Past Encounters Encounter ID Performer Location Encounter Start Date Encounter Closed Date Diagnosis/Indication Diagnosis SNOMED-CT Code Diagnosis ICD10 Code Diagnosis IMO Codes Diagnosis Note [id number] Agustín Glass MD [facility]) [address] [place] [id number] 04/21/2023 11:19:13 04/21/2023 15:46:26 Chronic obstructive pulmonary disease 83612734 J44.9 Given his smoking history he would benefit from triple therapy for his COPD. Benign pro static hyperplasia 037872256 N40.1 controlled on current meds Type 2 kathe betes mellitus 46546959 E11.8 last a1c was 5.7% and he will be due for repeat in June Mixed anxi ety and depressive disorder 952445069 F41.8 stable on current meds. Peripheral vascular disease 922380254 I73.9 has undergone several stent and bypass procedures . Neuropathy 894739657 G62 .9 likely 2/2 PVD and DM. continue gabapentin Anemia 469842355 D64.9 takes iron supplement ation. [id number] Agustín Glass MD [facility] ([facility]) [address] [place] [id number] 5 06/09/2023 16:41:00 06/10/2023 15:32:34 Type 2 diabetes mellitus 00010965 E11.8 Patient likely has increased obstructio n or secondary to the starting Breztri. He will restart his metformin. Follow-up next to have an A1c recheck. Continue to monitor blood sugars at home. Chronic ob structive pulmonary disease 17758852 J44.9 Doing well on Breztri. Neuropathy 642687434 G62 .9 likely 2/2 PVD and DM. continue gabapentin Peripheral vascular disease 574607277 I73.9 Patient is under the care of vascular surgery. Benign pro static hyperplasia 980701734 N40.1 controlled on current meds Mixed anxi ety and depressive disorder 710261753 F41.8 stable on current meds. [id number] JAISON JACQUES [facility] ([facility]) [address] [place] [id number] 5 07/24/2023 14:07:01 07/24/2023 15:50:38 Nausea 476514428 R11.0 Anemia 449813860 D64.9 Explained to patient we have limited lab available today. He is advised to keep his appt tomorrow with his PCP. He reports he sees Dr. Mehta for iron infusions and had one a month or so ago. [id number] Agustín Glass MD [facility] ([facility]) [address] [place] [id number] 5 07/25/2023 12:20:37 07/25/2023 15:37:37 Malaise and fatigue 095067664 R53.83 Chronic ob structive pulmonary disease 27130314 J44.9 Doing well on Breztri. Anemia 751671100 D64.9 takes iron supplement ation. Peripheral vascular disease 309555334 I73.9 Patient is under the care of vascular surgery. Type 2 kathe betes mellitus 81946345 E11.8 Patient's A1c is 6.7. Continue current management . [id number] Agustín Glass MD [facility] ([facility]) [address] [place] [id number] 5 08/15/2023 13:45:42 08/15/2023 14:20:52 Smoker 10034401 F17.200 Patient meets criteria for yearly low-dose CT. We will send an order. Chronic ob structive pulmonary disease 28132937 J44.9 Doing well on Breztri. [id number] Agustín Glass MD [facility] ([facility]) [address] [place] [address] [id number] 5 10/24/2023 13:42:24 10/25/2023 09:34:13 Type 2 diabetes mellitus 20523667 E11.8 Recheck A1c today. Continue current management . Chronic pain 75584613 G8 9.29 Pain managed with current medication s. Chronic ob structive pulmonary disease 21188131 J44.9 Doing well on Breztri. Mixed anxi ety and depressive disorder 951711265 F41.8 stable on current meds. Peripheral vascular disease 644528603 I73.9 Follow-up with vascular surgery. [id number] Agustín Glass MD [facility] ([facility]) [address] [place] [phone] 5 01/25/2024 14:00:28 01/25/2024 15:24:16 Type 2 diabetes mellitus 60695737 E11.8 Continue current management Unintentio nal weight loss 425992507 R63.4 We will proceed with lab work today. Reviewed lab work recommende d by hematology and no further or additional lab work is warranted at this time. We will await colonoscop y and lab results before any further testing or interventi on. Patient has been screened for lung cancer and it was normal. Chronic anemia 294896318 D64.9 Chronic ob structive pulmonary disease 98877539 J44.9 Doing well on Breztri. [id number] Agustín Glass MD [facility] ([facility]) [address] [place] [id number] 5 04/25/2024 11:30:44 04/25/2024 12:19:49 Carotid bruit 158874320 R09.89 Obtain ultrasound for further evaluation . Patient is currently asymptomat ic. [id number] Agustín Glass MD [facility] ([facility]) [address] [place] [id number] 5 04/30/2024 11:39:17 04/30/2024 13:47:03 [id number] Agustín Glass MD [facility] ([facility]) [address] [place] [id number] 5 05/14/2024 16:50:03 05/14/2024 17:26:40 Type 2 diabetes mellitus 59559060 E11.8 When his increase in protein and diabetes, the patient would benefit from Farxiga. Discussed this medication and the patient was agreeable to start. Dysphagia 09065573 R13.1 0 Gastropare sis due to type 2 diabetes mellitus 749425916 E11.43 That the patient may have gastropare sis. The patient has had a EGD evaluation and it was normal. Recommend doing a gastric emptying study. Microalbum inuric diabetic nephropathy 098395422 E11.21 Start Farxiga as above [id number] Agustín Glass MD [facility] ([facility]) [address] [place] [address] [id number] 5 06/11/2024 15:27:16 06/11/2024 16:26:26 Low blood pressure 16114504 I95.9 Is not currently on any blood pressure medication s. The patient is however taking Lasix. Commend stopping the Lasix as the patient is not having falling issues. Hopefully this will help with his blood pressure. Patient was encouraged to continue to monitor his blood pressure at home. [id number] Agustín Glass MD [facility] ([facility]) [address] [place] [id number] 5 08/20/2024 12:36:23 08/20/2024 14:59:38 Tobacco dependence syndrome 81912626 F17.200 Discussed smoking sensation with the patient. Will proceed with nicotine replacemen t with patches. Physical deconditioning 0422633385 9102 R68.89 Is having significan t weakness in both his extremitie s. This is likely combinatio n of neck and back issues as well as his chronic vascular issues. Will send order for physical therapy and see if we can improve this. Type 2 kathe betes mellitus 72435291 E11.8 When his increase in protein and diabetes, the patient would benefit from Farxiga. Discussed this medication and the patient was agreeable to start. Type 2 kathe betes mellitus without complication 895792816 E11.9 Check A1c and microalbum in today. Chronic ob structive pulmonary disease 99289041 J44.9 Doing well on Breztri. Peripheral vascular disease 920129824 I73.9 Continue with Plavix and interventi on outlined by vascular surgeon. Patient is trying to quit smoking. [id number] Agustín Glass MD [facility] ([facility]) [address] [place] [address] [id number] 5 09/03/2024 12:22:00 09/03/2024 13:04:28 Peripheral vascular disease 450632645 I73.9 This is causing him significan t pain and discomfort with walking. Difficulty mobilizing using mobility aids 680371076 R26.89 Patient does use a cane but this only provides limited benefit as the patient is unable to walk hardly any distance at all. Patient would benefit from immobiliza tion device to help him with his needs such as shopping. Dyspnea on exertion 6084 5006 R06.09 [id number] Agustín Glass MD [facility] ([facility]) [address] [place] [address] [id number] 5 09/10/2024 16:32:42 09/10/2024 17:40:17 Peripheral vascular disease 638071683 I73.9 . Neuropathy 572868112 G62 .9 Chronic ob structive pulmonary disease 53491883 J44.9 [id number] Agustín Glass MD [facility] ([facility]) [address] [place] [address] [id number] 5 09/18/2024 16:25:59 09/18/2024 17:27:21 Atypical angina 597805580 I20.89 Pain at rest that is improving with nitro. Patient is having active chest pain on arrival today. Recommend the patient be seen in the emergency department and the patient was agreeable. [id number] Agustín Glass MD [facility] ([facility]) [address] [place] [address] [id number] 5 12/12/2024 15:24:53 12/12/2024 16:19:53 Acute bacterial bronchitis 394874981 J20.9 Patient has inflammato ry/infecti ous changes [...] ATTR CM. Multiple n odules of lung 397542567 R91.[address] results and the patient is having nodules that are changing. Recommend repeat CT in 3 months. Schizoaffe ctive disorder 49436989 F25.9 Chronic ob structive pulmonary disease 22668644 J44.9 Peripheral vascular disease 184582799 I73.9 . Anemia 967467050 D64.9 Type 2 kathe betes mellitus 10577348 E11.8 Difficulty mobilizing using mobility aids 583165158 R26.89 Dependence on enabling machine or device 350285312 Z99.89 Difficulty walking 37050 2002 R26.2 [id number] Agustín Glass MD [facility] ([facility]) [address] [place] [address] [phone] 5 02/15/2025 12:33:48 02/15/2025 13:01:16 Multiple nodules of lung 819708100 R91.8 The patient is due for her 3-month follow-up on his CT next month. Will place order today to get it approved and scheduled. Type 2 kathe betes mellitus 51328914 E11.8 Recommend we do lab work and check A1c microalbum in today. Continue current medication s. Hyperlipid emia screening 135895784 Z13.220 Tricuspid valve regurgitation 015656612 I07.1 Discussed echo results with the patient. The patient has a mild tricuspid valve leak, otherwise echo was unremarkab le. The patient had a good ejection fraction. Patient was reassured by this informatio n. Referral not needed at this time. [id number] Agustín Glass MD [facility] ([facility]) [address] [place] [address] [phone] 5 03/12/2025 14:44:19 03/12/2025 15:16:23 Trochanteric bursitis of left hip 5787021999 10374 M70.62 The patient has signs and symptoms suggestive of trochanter ic bursitis. Will provide diclofenac gel to see if it will help with his pain. Discussed exercises and stretches to do at home. CT of chest abnormal 765 [id number] [address] results with the patient and recommenda tions. Pulmonolog y referral is pending. [id number] JAISON BLACK [facility] ([facility]) [address] [place] [address] [phone] 5 04/05/2025 18:47:00 04/10/2025 12:04:42 [id number] Agustín Glass MD [facility] ([facility]) [address] [place] [address] [phone] 5 04/09/2025 11:26:05 04/09/2025 13:08:48 Acute kidney injury 34539285 N17.9 [id number] Will recheck labs today to ensure resolution of his kidney issues. Chronic anemia 677766042 D64.9 974632 Recheck blood counts. Patient's blood counts was likely contributi ng to the patient's symptoms. Pneumonia 652901496 J18. 9 4386115310 Complete entire course of antibiotic s. Anticipate the patient will continue to improve [id number] JAISON BLACK [facility] ([facility]) [address] [place] [address] [phone] 5 06/26/2025 13:37:10 06/26/2025 15:10:22 Low blood pressure 50980390 R03.1 372709 BP normal here in clinic today. Will have patient hold his flomax this week and continue monitoring bp. If he continues to have low reads he is to return to the clinic. [id number] Agustín Glass MD [facility] ([facility]) [address] [place] [address] [id number] 5 07/04/2025 16:04:47 07/10/2025 08:05:51 Low blood pressure 81524251 I95.9 [id number] The patient is not currently on blood pressure medication s, however I do recommend that he stop his furosemide as this could also be contributi ng. [id number] Agustín Glass MD [facility] ([facility]) [address] [place] [address] [id number] 5 07/23/2025 17:26:51 07/23/2025 17:54:48 Pressure injury of left buttock stage II 6155978204 5109 L89.322 3855655563 Patient has a beginning of a pressure injury to the the left buttocks. This is likely combinatio n of poor circulatio n and sitting in 1 position too long. This was discussed with the patient and guidance was provided. I will make a referral to wound care to help with healing. [id number] Agustín Glass MD [facility] ([facility]) [address] [place] [address] [phone] 5 08/07/2025 17:02:13 08/13/2025 09:44:24 Difficulty mobilizing using mobility aids 316697960 R26.89 Based on the informatio n provided the patient, it sounds like he needs a PT eval for fitting for motorized wheelchair . [id number] Agustín Glass MD [facility] ([facility]) [address] [place] [address] [phone] 5 09/04/2025 13:50:41 09/04/2025 14:26:54 Type 2 diabetes mellitus 09321567 E11.8 - Monitor diabetes with today's A1c lab test; reassess in three months.- continue current meds Schizoaffe ctive disorder 36137597 F25.9 stable on current meds. [id number] Agustín Glass MD [facility] ([facility]) [address] [place] [address] [id number] 5 11/13/2025 17:24:51 11/13/2025 18:04:57 Bursitis of left hip 932499624 M70.72 Administer ed a steroid injection into the left hip for therapeuti c relief. This is the patient's first injection for this condition. The patient was counseled that the steroid may temporaril y elevate his blood sugar levels for a few days. Iliotibial band friction syndrome of left knee 4056970253 26210 M76.32 This is considered a contributi ng [...] Caceres Member ID Guarantor Name 11/13/2025 2 [place] Hussein Fitch [id number] Hussein Fitch 11/18/2025 1 [facility]/A DVANTAGE - HMO) Hussein Fitch [id number] Hussein Fitch 11/13/2025 [place] [facility] Hussein Fitch [id number] Hussein Fitch Notes Date Note Type Note Provider Name and Address Organization Details Recorded Time 07/04/2025 text/html Pt states he went to the ER for hypotension. Patient underwent evaluation and they found no persistent concerns. Patient wanted to discuss medications. Agustín Glass MD [address] [place] [address], [phone], [facility] 07/07/2025 11:21:14 07/23/2025 text/html This is [...] Patient denies any falls. Agustín Glass MD [address] [place] [address], [phone], [facility] 07/29/2025 07:56:42 08/07/2025 text/html ROS as noted in the HPI This is a 70-year-old gentleman that comes in today stating that he needs a fitting for his new motorized wheelchair. Patient was unsure of the specific needs from the DME company. Agustín Glass MD [address] [place] [address], [phone], [facility] 08/11/2025 12:01:32 09/04/2025 text/html Diabetes F/UReported [...] is arranged for September 17, 2025, in [place]. No other concerns today. Agustín Glass MD [address] [place] [address], [phone], [facility] 09/04/2025 14:24:28 11/13/2025 text/html ROS as [...] typically around 121 mg/dL. Agustín Glass MD [address] [place] [address], [phone], [facility], Kali 11/16/2025 09:55:36
--- OUTSIDE RECORDS SUMMARY | 2025-11-24 19:34 | XMS_ITS | Clinical Summary ---
Author Organization [facility] Whites[place] de Address [address] [place] [address] Phone Care Team Providers Care Cylinder Inspector And Tester Name Role Phone Wendy Nuñez Primary Care Provider [phone] Allergies No known active allergies Medications tamsulosin [...] Comments Blood Pressure 156/74 10/16/2019 10:59 AM BRANCH OPERATION EVALUATION MANAGER Pulse 100 10/16/2019 10:59 AM BRANCH OPERATION EVALUATION MANAGER Temperature - - Respiratory Rate - - Oxygen Saturation - - Inhaled Oxygen Concentration - - Weight 65.3 kg (144 lb) 12/28/2019 10:17 AM BRANCH OPERATION EVALUATION MANAGER Height 180.3 cm (5' 11 ) 12/28/2019 10:17 AM BRANCH OPERATION EVALUATION MANAGER Body Mass Index 20.08 12/28/2019 10:17 AM BRANCH OPERATION EVALUATION MANAGER Plan of Treatment Health Maintenance Due Date [...] series) 2030 Insurance [place]ID [place] Care Teams Cylinder Inspector And Tester Relationship Specialty Start Date End Date Wendy Nuñez PA [address] [facility] [address] [place] [address] PCP - General Physician Sql Bi Developer 10/16/19
--- OUTSIDE RECORDS SUMMARY | 2025-11-24 19:34 | XMS_ITS | Continuity of Care Document ---
Author Organization [facility] Tee Nicole [facility] Kali Magana, [facility] ([facility]) Address [address] [place] [address] Care Team Providers Care Lumber Bearer Name Role Phone AGUSTÍN GLASS Primary Care Provider Assessment Encounter Date Assessment Date Assessment LastModified [...] A1C/hemog lobin total, QN, blood 2024 025 [place] [facility] [facility], [address] [facility], [place], [address], 09/04/2025 14:42:26 Referral None recorded. Procedures None recorded. Surgeries None recorded. Imaging None recorded. Medication Orders None recorded. Patient TargetsNo targets recorded. Patient Instructions Encounter Date Encounter Id Patient Instructions Last Modified By Organization Details Last Modified Time 09/04/2025 [id number] - Have your A1c checked in the lab today. - Continue avoiding smoking, and maintain a healthy lifestyle. - Investigate local suppliers in [place] for wheelchair options. - Prepare for your colonoscopy on September 17, 2025, as instructed. - Return for a follow-up appointment in three months. [id number] Not available 09/04/2025 14:20:54 During the visit , we discussed the patient's stable diabetes management, noting his year-long smoking cessation, which is commendable. We addressed ongoing difficulties in obtaining a motorized wheelchair and considered exploring local suppliers in [place]. Scheduled the patient's colonoscopy for September 17, [...] A1C 7.1 4.2-6. 5 high Not Available [facility] [address] [facility] [address], [place], [address], 09/04/2025 14:42:26 Result Notes None recorded. 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 5 10:27:44 Large prostate 374088357 Active 2020 BPH (BENIGN PROSTATI C HYPERTRO PHY); Recorded 12/29/19 1:17PM by Lita Mccurdy LPN, Historic al Summary; Promoted ; acuity set as *; MALORIE SOSA donny, [facility] 3 19:10:15 Type 2 diabetes mellitus 79874475 Active 2022 Agustín Glass MD [address] [place] [address], [phone] 5, [facility] 14:23:45 Anemia 517999926 Completed 202202/14/2025 Removal Reason: Dacia hines, [facility] 5 10:33:44 Benign prostati c hyperpla wilfred 182911106 Active 2022 Agustín Glass MD [address] [place] [address], [phone] 5, [facility] 3 14:05:18 Chronic obstruct yoanna pulmonar y disease 36667325 Active 2022 Agustín Glass MD [address] [place] [address], [phone] 5, [facility] 3 14:05:20 Peripher al arterial disease 891711299 Active 2022 Agustín Glass MD [address] [place] [address], [phone] 5, [facility] 3 14:05:26 Mixed anxiety and depressi ve disorder 786448940 Active 2022 Agustín Glass MD [address] [place] [address], 86606-952 5, [facility] 3 14:05:22 Peripher al vascular disease 025627078 Active 2022 Agustín Glass MD [address] [place] [address], [phone] 5, [facility], Dean.L.CSusie 3 14:05:27 Neuropat hy 988495802 Completed 202202/14/2025 Removal Reason: Dacia hines [facility]CS[facility]ie 5 10:32:57 Schizoaf fective disorder 27680031 Active 2022 Agustín Glass MD [address] [place] [address], 34326-423 5, [facility], DeannaLSusieCSusie 5 14:23:33 Gastroes ophageal reflux disease 794743725 Active 2022 MALORIE hines [facility].L.CS[facility]ie 3 19:10:27 Malaise and fatigue 940185361 Active 2022 MALORIE hines [facility].L.CS[facility]ie 3 19:10:09 Smoker 11512745 Completed 202202/14/2025 Removal Reason: Dacia hines [facility] L.L.CS[facility]ie 5 10:30:52 Chronic pain 68619324 Active 2022 Lindsey hines [facility] L.L.CSusie 5 10:28:50 Unintent ional weight loss 889110217 Completed 202302/14/2025 Lindsey hines [facility], Dean.L.CSusie 5 10:31:13 Chronic anemia 953451849 Active 2023 Agustín Glass MD [address] [place] [address], 26689-328 5, [facility], L.L.CS[facility]ie 5 12:08:31 Difficul ty walking 346184073 Active 2023 Lindsey hines, [facility] L.L.CS[facility]ie 5 10:29:26 Dependen ce on enabling machine or device 966142036 Active 2023 Lindsey hines [facility], DeannaL.CSusie 5 10:28:56 Carotid bruit 674425671 Active 2023 Lindsey hines, [facility], DeannaL.CSusie 5 10:28:27 Dysphagi a 50171283 Active 2023 Lindsey hines [facility], DeannaL.CSusie 5 10:29:42 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 5 10:30:04 Low blood pressure 09368707 Completed 202302/14/2025 Agustín Glass MD [address] [place] [address], 31549-923 5, [facility], L.L.CS[facility]ie 5 11:20:27 Tobacco dependen ce syndrome 31416670 Active 2023 Lindsey hines [facility].L.CS[facility]ie 5 10:30:58 Physical decondit ioning 17411176891 102 Active 2023 JULISSA hines [facility] L.L.CS[facility]ie 5 14:51:54 Difficul ty mobilizi ng using mobility aids 416047981 Active 2023 Lindsey hines, [facility] 5 10:29:32 Dyspnea on exertion 67485615 Active 2023 Lindsey hines, [facility] 5 10:29:48 Atypical angina 423676748 Active 2023 Lindsey hines, [facility] 5 10:28:07 Acute bacteria l bronchit is 328645875 Completed 202402/14/2025 Lindsey hines, [facility] 5 10:27:57 Multiple nodules of lung 313038035 Active 2024 Lindseyila hines [facility] 5 10:31:20 Tricuspi d valve regurgit ation 594164545 Active 2024 Agustín Glass MD [address] [place] [address], 42330-452 5, [facility] 5 15:00:26 Trochant juvencio bursitis of left hip 43099781137 9103 Active 2024 Lindseyila hines [facility] 5 12:54:20 CT of chest abnormal 78546577368 231746 Active 2024 Lindseyila hines [facility] 5 12:54:29 Acute kidney injury 90390830 Active 2024 Lindsey Mcelroy donny [facility] 5 12:54:35 Pneumoni a 458187968 Active 2024 Agustín Glass MD [address] [place] [address], 60856-411 5, [facility] 04:57:35 Low blood pressure 55965045 Active 2024 Agustín Glass MD [address] [place] [address], [phone] 5, [facility], MarcyCSusie 11:20:26 Wound of skin 608663874 Active 2024 Agustín Glass MD [address] [place] [address], 07574-542 5, [facility], Kali 17:45:15 Pressure injury of left buttock stage II Active 2024 Agustín Glass MD [address] [place] [address], 54322-573 5, [facility], Kali 17:45:43 Problem Notes None recorded. Procedures Surgical History Date Name Laterality Status Provider Name and Address Organization Details Recorded Time 11/13/20 25 Joint Inj Kenalog- Shoulder, Hip, Knee completed Agustín Glass MD [address] [place] [address], [phone], [facility], L.LSusieCSusie 11/16/2025 09:54:58 04/26/20 24 [facility] L.LSusieCSusie 05/14/2024 17:00:40 01/26/20 24 endoscopy and biopsy of upper gastrointestinal tract completed [facility] FLOWERS [facility], L.LSusieCSusie 01/30/2024 16:12:18 procedure on eye completed Andrade George [facility], LSusieLCezar 03/12/2025 13:30:48 procedure on lower leg completed Andrade George [facility], LSusieLSusieCSusie 03/12/2025 13:31:14 procedure on lung completed Lindsey Mcelroy [facility], LSusieLCezar 07/23/2025 17:38:00 Imaging Results None recorded. [...] Not Available Not Available No t Available [facility] Ultra Test strips USE TO test blood [...] two times daily 07/19 completed vo KM/; 83450; Recorded 05/14/20 8:28AM by Lita Mccurdy LPN (Authori shanice through Wendy Nuñez PA-C), Refill Request; Refill Quantity : 60; Tablet; Not Available Not Available Not Available Vitamin-C daily 01/25 completed 0; Recorded 12/24/19 20 8:02AM by Lita Mccurdy LPN, Office Visit; Not Available Not Available Not Available Avodart daily 07/19 completed PT MUST BE SEEN FOR MORE /; 96708; Recorded 12/29/19 1:17PM by Lita Mccurdy LPN (Authori shanice through Wendy Nuñez PA-C), Historic al Summary; Refill Quantity : 0; Not Available Not Available Not Available aripipraz ole daily 07/19 completed 0; Recorded 12/24/19 20 8:02AM by Lita Mccurdy LPN, Office Visit; Not Available Not Available Not Available Truetrack Test Strips daily 07/25 completed DX: Diabetes Mellitus E11.9 [facility]/ /[facility]; 09999; Recorded 12/24/19 8:02AM by Lita Mccurdy LPN [...] Not Available Not Available No t Available [facility] COVID-19 Antigen Rapid Home Test kit DIRECTED 04/21 completed Not Available Not Available Not Available Vitals Date Recorded Body height Body mass index (BMI) Body weight Body temperature Respiratory rate Oxygen saturation Heart rate Systolic And Diastolic Provider Name and Address Organization Details Last Updated DateTime 5 177.8 cm 19.8 kg/m2 50044.7 5 g 97 [degF] 16 /min 98 % 84 /min 128/64 mm[Hg] Lindsey Mcelroy [facility], LSusieLCezar 14:00:15 Social History Question Answer Notes LastModified by Organizat ion Details LastModified Time Tobacco Smoking Status Former Smoker quit smoking 9 months ago Kerry hines [facility], L.LCezar 07/04/2025 16:15:08 Are You Blind Or Do You Have Difficulty Seeing? No Information not available 10/24/2023 What Is Your Level Of Caffeine Consumption? Occasional Information not available 06/09/2023 Are You Deaf Or Do You Have Serious Difficulty Hearing? No Information not available 10/24/2023 When Did You Quit Smoking? 16+yearssincel ferkayce Spring 2023 [email or web address] Information not available 07/23/2025 Which Of Your Hands Is Dominant? Right Information not available 10/24/2023 What Was The Date Of Your Most Recent Tobacco Screening? 08/07/2025 [email or web address] Information not available 08/07/2025 What Is Your Current Pack Years? [email or web address] ars [email or web address] Information not available 12/12/2024 What Is Your Relationship Status? Information not available 06/09/2023 At What Age Did You Start Smoking Tobacco? 15 [email or web address] Information not available 07/23/2025 Have You Recently [...] virus, trivalent, preservative 9 completed JULISSA hines, [facility] 08/15/2023 14:03:08 Influenza, split virus, trivalent, preservative 6 completed JULISSA hines [facility] 08/15/2023 14:03:08 Influenza, split virus, trivalent, preservative 3 completed JULISSA hines [facility] 08/15/2023 14:03:08 Influenza, split virus, trivalent, preservative 7 completed JULISSA hines [facility] 08/15/2023 14:03:08 Influenza, split virus, trivalent, preservative 8 completed JULISSA hines [facility] 08/15/2023 14:03:08 Influenza, high-dose, quadrivalent, 3 completed JULISSA hines [facility] 08/15/2023 14:03:07 Pneumococcal conjugate PCV20, polysaccharide EVT467 conjugate, adjuvant, 3 completed JULISSA hines [facility] 08/15/2023 14:03:08 Influenza, high-dose, quadrivalent, PF 2 completed MALORIE hines [facility] 06/08/2023 14:17:50 COVID-19, mRNA, LNP-S, PF, 100 mcg/0.5mL dose or 50 mcg/0.25mL dose 1 completed MALORIE hines [facility] 06/08/2023 14:17:50 COVID-19, mRNA, LNP-S, PF, 100 mcg/0.5mL dose or 50 mcg/0.25mL dose 1 completed MALORIE hines [facility] 06/08/2023 14:17:51 influenza, split (incl. purified surface antigen) 0 completed MALORIESA IAN hines [facility] 06/08/2023 14:17:51 Influenza, split virus, quadrivalent, PF 1 completed MALORIE hines [facility] 06/08/2023 14:17:51 zoster recombinant 3 completed Not Available [facility] 11/13/2025 17:25:09 Influenza, high-dose, trivalent, PF 5 completed Not Available [facility] 11/13/2025 17:25:09 pneumococcal polysaccharide PPV23 5 completed Not Available [facility] 11/13/2025 17:25:09 Influenza, high-dose, trivalent, PF 5 completed Not Available [facility] 11/13/2025 17:25:09 Past Encounters Encounter ID Performer Location Encounter Start Date Encounter Closed Date Diagnosis/Indication Diagnosis SNOMED-CT Code Diagnosis ICD10 Code Diagnosis IMO Codes Diagnosis Note [id number] Agustín Glass MD [facility] ([facility]) [address] [place] [address] 08/07/2025 17:02:13 08/13/2025 09:44:24 Difficulty mobilizing using mobility aids 361557931 R26.89 Based on the informatio n provided the patient, it sounds like he needs a PT eval for fitting for motorized wheelchair . [id number] Agustín Glass MD [facility] ([facility]) [address] [place] [address] 09/04/2025 13:50:41 09/04/2025 14:26:54 Type 2 diabetes mellitus 31737487 E11.8 - Monitor diabetes with today's A1c lab test; reassess in three months.- continue current meds Schizoaffe ctive disorder 93790707 F25.9 stable on current meds. Health Concerns Section Related Observation LastModified by Organization Detai ls LastModified Time None Recorded Concern Status LastModified by Organization Details LastModified Time None Recorded Payers Encounter Date Sequence Insurance Name Policy Number Policy Caceres Covered Member ID Caceres Member ID Guarantor Name 09/04/2025 1 [facility] DVANTAGE - [place]MO) Hussein Fitch [id number] Hussein Fitch 09/04/2025 2 [place] Hussein Fitch [id number] Hussein Fitch Notes Date Note Type Note [...] is arranged for September 17, 2025, in [place]. No other concerns today. Agustín Glass MD [address] [place] [address], [phone], [facility], LSusieLCezar 09/04/2025 14:24:28
--- OUTSIDE RECORDS SUMMARY | 2025-11-24 19:34 | XMS_ITS | Continuity of Care Document ---
Author Organization [place] - Tee Nicole [facility] Kali Magana, [facility] ([facility]) Address [address] [place] [address] Care Team Providers Care Clerk Manager Name Role Phone AGUSTÍN GLASS Primary Care Provider [phone] Assessment Encounter Date Assessment Date Assessment LastModified [...] By Organization Details Last Modified Time 11/13/2025 [id number] - You have received a steroid injection [...] hy due to type 2 diabetes mellitus 59327163097 02 Active 2019 TYPE 2 DIABETES MELLITUS WITH PRESSURE CALLUS; Impressi on: left foot.; Recorded 05/07/20 12:35PM by Lita Mccurdy LPN, Annotati on/Adden dum; Promoted ; acuity set as *; MALORIE hines [facility], L.LSusieCSusie 3 19:10:23 Type 2 diabetes mellitus without complica tion 198107646 Completed 201902/14/2025 DIABETES MELLITUS ; Recorded 05/07/20 20 12:36PM by Lita Mccurdy LPN, Historic al Summary; Promoted ; acuity set as *; Removal Reason: andrés Portillo Navi hines [place] Zafar [facility], L.LCezar 5 10:27:44 Large prostate 060831857 Active 2020 BPH (BENIGN PROSTATI C HYPERTRO PHY); Recorded 12/29/19 21 1:17PM by Lita Mccurdy LPN, Historic al Summary; Promoted ; acuity set as *; MALORIE hines [facility], L.LSusieCSusie 3 19:10:15 Type 2 diabetes mellitus 97218817 Active 2022 Agustín Glass MD [address] [place] [address], [address], [facility] 5 14:23:45 Anemia 613830540 Completed 202202/14/2025 Removal Reason: andrés Portillo Navi hines, [facility] 5 10:33:44 Benign prostati c hyperpla wilfred 770619259 Active 2022 Agustín Glass MD [address] [place] [address], [phone], [facility] 3 14:05:18 Chronic obstruct yoanna pulmonar y disease 45267759 Active 2022 Agustín Glass MD [address] [place] [address], [phone], [facility] 3 14:05:20 Peripher al arterial disease 916305912 Active 2022 Agustín Glass MD [address] [place] [address], [address], [facility] 3 14:05:26 Mixed anxiety and depressi ve disorder 498280731 Active 2022 Agustín Glass MD [address] [place] [address], [address], [facility] 3 14:05:22 Peripher al vascular disease 197189091 Active 2022 Agustín Glass MD [address] [place] [address], [address], [facility] 3 14:05:27 Neuropat hy 203119851 Completed 202202/14/2025 Removal Reason: Dacia hines [facility], L.L.CSusie 5 10:32:57 Schizoaf fective disorder 80217284 Active 2022 Agustín Glass MD [address] [place], [address], [facility], DeannaLSusieCSusie 5 14:23:33 Gastroes ophageal reflux disease 558269195 Active 2022 MALORIE hines [facility], L.L.CSusie 3 19:10:27 Malaise and fatigue 225991829 Active 2022 MALORIE hines [facility], L.L.CSusie 3 19:10:09 Smoker 73204802 Completed 202202/14/2025 Removal Reason: Dacia hines [facility], L.L.CSusie 5 10:30:52 Chronic pain 70051442 Active 2022 Lindsey hines [facility], L.L.CSusie 5 10:28:50 Unintent ional weight loss 226750450 Completed 202302/14/2025 Lindsey hines [facility], L.L.CSusie 5 10:31:13 Chronic anemia 187427583 Active 2023 Agustín Glass MD [address] [place], [address], [place] [facility], DeannaL.CSusie 5 12:08:31 Difficul ty walking 105312336 Active 2023 Lindsey hines [facility], DeannaLSusieCSusie 5 10:29:26 Dependen ce on enabling machine or device 655388880 Active 2023 Lindsey hines [facility] 5 10:28:56 Carotid bruit 593712528 Active 2023 Lindsey hines, [facility] 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 10:29:56 Microalb uminuric diabetic nephropa thy 342563761 Active 2023 [facility] 5 10:30:04 Low blood pressure 10358998 Completed 202302/14/2025 Agustín Glass MD [address] [place] [address], [phone] , [facility] 11:20:27 Tobacco dependen ce syndrome 49910709 Active 2023 [facility] 5 10:30:58 Physical decondit ioning 45499605359 102 Active 2023 [facility] 14:51:54 Difficul ty mobilizi ng using mobility aids 506918699 Active 2023 Lindsey hines [facility] 10:29:32 Dyspnea on exertion 17756878 Active 2023 Lindsey hines [facility] 10:29:48 Atypical angina 661112155 Active 2023 Lindsey hines [facility] 5 10:28:07 Acute bacteria l bronchit is 352619990 Completed 202402/14/2025 Lindsey hines, [facility] 5 10:27:57 Multiple nodules of lung 982631911 Active 2024 Lindsey hines [facility] 10:31:20 Tricuspi d valve regurgit ation 780032871 Active 2024 Agustín Glass MD [address] [place] [address], [address], [facility] 15:00:26 Trochant juvencio bursitis of left hip 60914097568 9103 Active 2024 Lindsey hines [facility] 5 12:54:20 CT of chest abnormal 98595361307 986080 Active 2024 Lindsey hines [facility] 12:54:29 Acute kidney injury 04620661 Active 2024 [facility] 5 12:54:35 Pneumoni a 842185679 Active 2024 Agustín Glass MD [address] [place] [address], [address], [facility] 5 04:57:35 Low blood pressure 98742682 Active 2024 Agustín Glass MD [address] [place] [address], [address], [facility] 5 11:20:26 Wound of skin 512946434 Active 2024 Agustín Glass MD [address] [place], [address], [facility], LZoe 17:45:15 Pressure injury of left buttock stage II Active 2024 Agustín Glass MD [address] [place], [address], [facility], Kali 17:45:43 Problem Notes None recorded. Procedures Surgical History Date Name Laterality Status Provider Name and Address Organization Details Recorded Time 11/13/20 25 Joint Inj Kenalog- Shoulder, Hip, Knee completed Agustín Glass MD [address] [place], [address], [facility], Kali 11/16/2025 09:54:58 04/26/20 24 [facility] 05/14/2024 17:00:40 01/26/20 24 endoscopy and biopsy of upper gastrointestinal tract completed [facility], L.LSusieCSusie 01/30/2024 16:12:18 procedure on eye completed [facility], LSusieLSusieCSusie 03/12/2025 13:30:48 procedure on lower leg completed Andrade George [facility], LSusieLCezar 03/12/2025 13:31:14 procedure on lung completed Lindsey Mcelroy [facility], L.LSusieCSusie 07/23/2025 17:38:00 Imaging Results None recorded. [...] Not Available Not Available No t Available [employer] Ultra Test strips USE TO test blood [...] two times daily 07/19 completed vo KM/; 38041; Recorded 05/14/20 8:28AM by Lita Mccurdy LPN (Authori shanice through Wendy Nuñez PA-C), Refill Request; Refill Quantity : 60; Tablet; Not Available Not Available Not Available Vitamin-C daily 01/25 completed 0; Recorded 12/24/19 20 8:02AM by Lita Mccurdy LPN, Office Visit; Not Available Not Available Not Available Avodart daily 07/19 completed PT MUST BE SEEN FOR MORE [facility]; [address]; Recorded 12/29/19 1:17PM by Lita Mccurdy LPN (Authori shanice through Wendy Nuñez PA-C), Historic al Summary; Refill Quantity : 0; Not Available Not Available Not Available aripipraz ole daily 07/19 completed 0; Recorded 12/24/19 8:02AM by Lita Mccurdy LPN, Office Visit; Not Available Not Available Not Available Truetrack Test Strips daily 07/25 completed DX: Diabetes Mellitus E11.9 vo / /delaney; 89128; Recorded 12/24/19 8:02AM by Lita Mccurdy LPN [...] Not Available Not Available No t Available [facility] COVID-19 Antigen Rapid Home Test kit DIRECTED 04/21 completed Not Available Not Available Not Available Vitals Date Recorded Body height Body mass index (BMI) Body weight Oxygen saturation Heart rate Respiratory rate Systolic And Diastolic Provider Name and Address Organization Details Last Updated DateTime 177.8 cm 20.6 kg/m2 77348.8 1 g 97 % 88 /min 18 /min 130/68 mm[Hg] Jesusita Nixon [facility] 17:46:43 Social History Question Answer Notes LastModified by Organizat ion Details LastModified Time Tobacco Smoking Status Former Smoker quit smoking 9 months ago Kerry hines [facility] 07/04/2025 16:15:08 Are You Blind Or Do You Have Difficulty Seeing? No Information not available 10/24/2023 What Is Your Level Of Caffeine Consumption? Occasional Information not available 06/09/2023 Are You Deaf Or Do You Have Serious Difficulty Hearing? No Information not available 10/24/2023 When Did You Quit Smoking? 16+yearssincel astcikayce Spring 2023 [email or web address] Information not available 07/23/2025 Which Of Your Hands Is Dominant? Right Information not available 10/24/2023 What Was The Date Of Your Most Recent Tobacco Screening? 08/07/2025 [email or web address] Information not available 08/07/2025 What Is Your Current Pack Years? [email or web address] cassia Information not available 12/12/2024 What Is Your Relationship Status? Information not available 06/09/2023 At What Age Did You Start Smoking Tobacco? 15 [email or web address] Information not available 07/23/2025 Have You Recently [...] virus, trivalent, preservative 9 completed JULISSA hines, [facility] 08/15/2023 14:03:08 Influenza, split virus, trivalent, preservative 6 [facility] 08/15/2023 14:03:08 Influenza, split virus, trivalent, preservative 3 completed [facility] 08/15/2023 14:03:08 Influenza, split virus, trivalent, preservative 7 completed [facility] 08/15/2023 14:03:08 Influenza, split virus, trivalent, preservative 8 completed [facility] 08/15/2023 14:03:08 Influenza, high-dose, quadrivalent, PF 3 completed [facility] 08/15/2023 14:03:07 Pneumococcal conjugate PCV20, polysaccharide DXM335 conjugate, adjuvant, PF 3 completed JULISSA hines [facility] 08/15/2023 14:03:08 Influenza, high-dose, quadrivalent, PF 2 completed [facility] 06/08/2023 14:17:50 COVID-19, mRNA, LNP-S, PF, 100 mcg/0.5mL dose or 50 mcg/0.25mL dose 1 completed MALORIE hines [facility] 06/08/2023 14:17:50 COVID-19, mRNA, LNP-S, PF, 100 mcg/0.5mL dose or 50 mcg/0.25mL dose 1 completed MALORIE hines [facility] 06/08/2023 14:17:51 influenza, split (incl. purified surface antigen) 0 completed MALORIE IAN hines [facility] 06/08/2023 14:17:51 Influenza, split virus, quadrivalent, PF 1 completed MALORIESA IAN hines [facility] 06/08/2023 14:17:51 zoster recombinant [...] ICD10 Code Diagnosis IMO Codes Diagnosis Note [id number] Agustín Glass MD [facility] ([facility]) [address] [place] [address] 11/13/2025 17:24:51 11/13/2025 18:04:57 Bursitis of left hip 289303873 M70.72 Administer ed a steroid injection into the left hip for therapeuti c relief. This is the patient's first injection for this condition. The patient was counseled that the steroid may temporaril y elevate his blood sugar levels for a few days. Iliotibial band friction syndrome of left knee [id number] 80065 M76.32 This is considered a contributi ng [...] Caceres Member ID Guarantor Name 11/13/2025 1 [facility] (MEDIC[place] REPLAC[place]/A DVANTAGE - HMO) Hussein Fitch [id number] Hussein Fitch 11/13/2025 2 [place] Hussein Fitch [id number] Hussein Fitch Notes Date Note Type Note [...] typically around 121 mg/dL. Agustín Glass MD [address] [place] [address], [phone], [facility] 11/16/2025 09:55:36
--- OUTSIDE RECORDS SUMMARY | 2025-11-24 19:34 | XMS_ITS | Clinical Summary ---
Author Organization [employer] Address [address] [facility] Attn: Epic Prelude ADT JAVI MALHOTRA [address] Care Team Providers Care Steamer Gum Candy Name Role Phone Wendy Nuñez Primary Care Provider [phone] Allergies No known active allergies Medications PEG-Electrolyte [...] on file Legal Sex Male 1:53 PM CLAIM ATTORNEY Gender Identity Not on file Sexual Orientation Not on file Last Filed Vital Signs Vital Sign Reading Time Taken Comments Blood Pressure 156/74 10/16/2019 10:59 AM CLAIM ATTORNEY Pulse 100 10/16/2019 10:59 AM CLAIM ATTORNEY Temperature - - Respiratory Rate - - Oxygen Saturation - - Inhaled Oxygen Concentration - - Weight 65.3 kg (144 lb) 12/28/2019 10:17 AM CLAIM ATTORNEY Height 180.3 cm (5' 11 ) 12/28/2019 10:17 AM CLAIM ATTORNEY Body Mass Index 20.08 12/28/2019 10:17 AM CLAIM ATTORNEY Plan of Treatment Health Maintenance Due Date [...] - 1-dose 75+ series) 2030 Care Teams Steamer Gum Candy Relationship Specialty Start Date End Date Wendy Nuñez PA [address] [facility] [address] [place] [address] PCP - General Physician Matrix Worker 10/16/19
--- NOTE | 2025-11-24 20:37 | ECG_ITS ---
[facility]: 2025-[facility]24 Pat Name: Hussein Fitch Department: Room: Gender: Male Networker: : 1955 Requested By: Libia Umanzor Order Number: [id number] Reading MD: ESPERANZA RAUSCH Measurements Intervals [place] Rate: 83 P: 46 NV: 172 QRS: 79 QRSD: 97 T: 64 QT: 360 QTc: 424 Interpretive Statements SINUS RHYTHM No previous ECG available for comparison Electronically Signed On 11-24-2025 22:51:36 TAVERN CAR ATTENDANT by ESPERANZA RAUSCH [email or web address]
--- NOTE | 2025-11-24 20:39 | ECG_ITS ---
[facility] Date: 2025-11-24 Pat Name: Hussein Fitch Department: Room: Gender: Male Director [place]: : 1955 Requested By: Cristina Vasques Order Number: [id number] Avinash MD: ESPERANZA RAUSCH Measurements Intervals [place] Rate: 83 P: 46 VT: 172 QRS: 79 QRSD: 97 T: 64 QT: 360 QTc: 424 Interpretive Statements SINUS RHYTHM Compared to ECG 11/19/2025 09:19:14 No significant changes Electronically Signed On 11-24-2025 22:48:01 BRAZING FURNACE OPERATOR by ESPERANZA RAUSCH [email or web address]
[2025-11-24 22:23] LABS: Hematocrit 24.4 % (37-53); Hemoglobin 7.60 g/dL (11.27-16.99); Mean Corpuscular HGB Conc 31.1 g/dL (30-55); Mean Corpuscular Hemoglobin 26.1 pg (27-33); Mean Corpuscular Volume 83.8 fl (82-101); Nucleated Red Blood Cells % 0 %; Platelet Count 343 10^3/cmm (157-399); Red Blood Count 2.91 10^6/uL (3.85-5.65); White Blood Count 7.86 10^3/uL (3.29-11.43)
[2025-11-24 22:34] LABS: Alanine Aminotransferase 11 U/L (0-41); Albumin Level 4.3 g/dL (3.5-5.2); Alkaline Phosphatase 86 U/L (40-130); Anion Gap 20.3 (5-19); Aspartate Amino Transferase 11 U/L (0-40); Blood Urea Nitrogen 62 mg/dL (8-23); Calcium 9.2 mg/dL (8.5-10.5); Carbon Dioxide 24 mmol/L (22-29); Chloride 92 mmol/L (98-107); Creatinine Clr Calc Pharmacy 35.6518; Globulin 2.9 g/dL (1.3-4.6); Glucose 120 mg/dL (65-115); Osmolality Calculated 291 mOsm/kg (285-295); Potassium 5.3 mmol/L (3.5-5.1); Sodium 131 mmol/L (136-145); Total Protein 7.2 g/dL (6.6-8.7)
--- NOTE | 2025-11-24 22:55 | W.ED.DIZZY ---
HPI - Dizziness General: Chief Complaint: Dizziness Stated Complaint: Blood pressure jumping then drop to 68/44 Time Seen by Provider: 11/24/25 21:43 History of Present Illness: HPI Narrative: Patient is a 70-year-old male with a history of anemia, occasional need for blood transfusion, type 2 diabetes, peripheral neuropathy, GERD, COPD, PAD, hypertension presents with a chief complaint of episodes of low blood pressure at home associated with dizziness, described as lightheadedness with sitting or standing. Patient states that his blood pressure was as low as 70/30 at home when he was feeling dizzy. Patient reports a subjective fever at home but has not measured his temperature, he is afebrile here. Patient denies runny nose, sore throat or cough. Patient states that he has chronic shortness of breath but nothing worse or new. Patient states that he has had an FL in the past, states that he occasionally gets chest pain with exertion and has been getting them at rest more frequently. He denies chest pain at this time though he states that he was experiencing approximately 2 to 3 minutes of chest tightness approximately 10 minutes prior to examination. Patient denies syncope, hemoptysis or leg swelling. No abdominal pain, nausea or vomiting or diarrhea. Patient states he has been eating and drinking relatively normally. He states that he has anemia, unclear cause, had blood transfusion several days ago in our emergency room. Patient is not confused, has no difficulty w/speech, swallowing/eating, focal numbness, focal weakness, difficulty w/coordination. He states he does not get around much and does not frequently exert himself. He reports generalized weakness/fatigue. Of note, he was recently started on Prazosin. Related Data Home Medications ?Medication ?Instructions ?Recorded ?Confirmed ascorbic acid (vitamin C) 500 mg 500 mg PO DAILY 12/11/19 11/18/25 capsule finasteride 5 mg tablet 5 mg PO QAM 12/11/19 11/18/25 gabapentin 300 mg capsule 300 mg PO TID 12/11/19 11/18/25 tamsulosin 0.4 mg capsule 0.4 mg PO BEDTIME 12/11/19 11/18/25 docusate sodium 100 mg tablet 100 mg PO BID PRN Constipation 06/29/21 11/18/25 ferrous sulfate 325 mg (65 mg 325 mg PO QAM 07/01/22 11/18/25 iron) tablet metformin 1,000 mg tablet 1,000 mg PO BID 06/13/23 11/18/25 budesonide 160 mcg-glycopyr 9 2 inh inhalation BID 12/26/23 11/18/25 mcg-formot 4.8 mcg/actuation HFA inhaler (Breztri Aerosphere) cyanocobalamin (vitamin B-12) 1,000 mcg IM Q30D 01/24/24 11/18/25 1,000 mcg/mL injection solution aspirin 81 mg tablet,delayed 81 mg PO QAM 02/24/24 11/18/25 release Held on 11/18/25. Instructions: Resume on 11/25/25. clopidogrel 75 mg tablet 75 mg PO QAM 02/24/24 11/18/25 Held on 11/18/25. Instructions: Resume on 11/25/25. pravastatin 80 mg tablet 80 mg PO BEDTIME 02/24/24 11/18/25 prednisolone acetate 1 % eye 1 drp ophthalmic (eye) QID 02/24/24 11/18/25 drops,suspension dapagliflozin propanediol 10 mg 10 mg PO DAILY 10/22/24 11/18/25 tablet (Farxiga) metoclopramide HCl 5 mg tablet 5 mg PO TID 12/04/24 11/18/25 albuterol sulfate 90 mcg/actuation 2 puff inhalation Q4H PRN 04/06/25 11/18/25 aerosol inhaler (Ventolin HFA) Shortness Of Breath diclofenac sodium 1 % topical gel 4 g topical QID PRN Pain 04/06/25 11/18/25 insulin glargine 100 unit/mL (3 6 unit SUBCUT BEDTIME 04/06/25 11/18/25 mL) subcutaneous pen (Lantus Solostar U-100 Insulin) pantoprazole 40 mg tablet,delayed 40 mg PO BID 04/06/25 11/18/25 release Previous Rx's ?Medication ?Instructions ?Recorded pentoxifylline 400 mg 400 mg PO TID #90 tabs 06/28/24 tablet,extended release Diabetic shoes with 3 sets of #1 ea 11/06/24 insoles aripiprazole 10 mg tablet (Abilify) 10 mg PO .morning #90 tabs 06/11/25 buspirone 30 mg tablet 30 mg PO BID #180 tabs 06/11/25 mirtazapine 30 mg tablet 30 mg PO BEDTIME #90 tabs 06/11/25 nitroglycerin 0.4 mg sublingual See Rx Instructions .Route 09/25/25 tablet .COMPLEX #25 tabs prazosin 1 mg capsule 2 mg (2 x 1 mg) PO BEDTIME #60 caps 10/07/25 levofloxacin 750 mg tablet 750 mg PO DAILY 7 days #7 tabs 11/18/25 Allergies Allergy/AdvReac Type Severity Reaction Status Date / Time No Known Allergies Allergy Verified 11/18/25 10:49 [facility] ED PFS: Medical History (Updated 11/25/25 @ 02:42 by Libia Umanzor MD) Chronic post-traumatic stress disorder Proctocolitis History of MRSA infection GERD (gastroesophageal reflux disease) Peripheral neuropathy Type 2 diabetes mellitus Psychiatric care Anemia Peripheral arterial disease COPD (chronic obstructive pulmonary disease) Dyslipidemia Essential hypertension Schizoaffective disorder, depressive type BPH with obstruction/lower urinary tract symptoms Surgical History History of coronary artery stent placement History of eye surgery x3 History of surgery on arm Multiple procedures on the right arm related to MRSA infection H/O foot surgery x 2 for diabetic foot ulcer H/O colonoscopy yrs ago H/O esophagogastroduodenoscopy Status post femoral-popliteal bypass surgery Left femoropopliteal bypass in 2012 with redo bypass in 2013 S/P angioplasty Angioplasty with stent placement to the right leg Family History Family/Other Stroke Cancer Diabetes Hypertension Unknown Cancer Father , at age 59 Alcoholic Mother Lung disease Stroke Denies family history of Anesthesia complication Bleeding disorder Social History Smoking and tobacco/nicotine status: former use of tobacco/nicotine Second hand smoke exposure: No Alcohol intake: former Substance/Drug Use: never Household members: other Details: room mate Marital status: Current occupational status: disabled Current gender identity: Male Physical Exam Narrative: EXAM NARRATIVE: Vital signs were reviewed. Patient is alert and oriented. Patient is breathing comfortably, no increased WOB or accessory muscle use. SpO2 is above 95% on RA. Patient has clear lungs b/l, no rhonchi, wheezing or crackles. No hypotension or tachycardia. He becomes tachycardic w/sitting. Abdomen is soft, nondistended and nontender. Patient is moving all extremities, no deformity or gross injury. No lower extremity edema or asymmetry. Course Vital Signs: Vital signs: Vital Signs Temperature 97.5 F L 11/24/25 20:25 Pulse Rate 73 11/25/25 02:15 Respiratory Rate 12 11/25/25 01:00 Blood Pressure 131/63 11/25/25 02:15 Pulse Oximetry 97 11/25/25 02:15 Oxygen Delivery Me thod Nasal Cannula 11/24/25 23:15 Oxygen Flow Rate 2 11/24/25 23:15 MDM - Dizziness Medical Decision Making 70yo M w/cc of hypotension at home a/w lightheadedness/dizziness. He has chronic anemia, required transfusion for anemia on 11/19. He has also started Levaquin for right lower lobe pneumonia on 11/18. Differential diagnosis includes but is limited to, anemia requiring transfusion, orthostatic hypotension, medication side effect, infection such as pneumonia, urinary tract infection, sepsis, other. On initial exam he is HemoCue stable and afebrile but with sitting his heart rate increases to 107 from 85. Patient was evaluate with orthostatic vital signs and treated with IV fluids. He was evaluate CBC, CMP, lactic acid, procalcitonin, troponin, blood culture, UA, EKG and chest x-ray. Patient has a normal white blood cell count but he is anemic with a hemoglobin of 7.6/24.4. This is comparable to previous. Creatinine is elevated 1.8 which is a rise from 1.3 previously. Patient has elevated BUN/creatinine ratio of 34 which is concerning for degree of GI bleeding the patient states that he has been evaluated with a colonoscopy and EGD, per record, noted to demonstrate mild gastritis. He states that he has not noted any blood in stool, no melena and has not vomited blood. He is has not any epigastric discomfort or pain. Patient has mild hyperkalemia. Troponin is elevated but delta is negative, on reassessment, patient continues to deny chest pain though he states that he has had some episodes of exertional chest pain more frequently. I recommended admission for increasing frequency of chest pain, RUFINA, anemia, elevated BUN/creatinine ratio which may be concerning for GI bleeding. However, patient declined. Patient stated that he is not having chest pain, he does not feel short of breath, he is currently not feeling dizzy, orthostatics were negative, patient wishes to go home. He is mildly tachycardic but states that he feels fine. He does not wish to stay, stating that he can see his doctor in the next day or 2. Despite relaying my concerns, patient opted to go home. Patient is alert, oriented and does have decision-making capacity. Patient was discharged, per patient wishes. We discussed return precautions and he was advised to follow-up very closely with his primary care physician. I advised him to stop prazosin as I feel that it may be contributing to orthostatic hypotension he may be experiencing at home. Lab Data 11/24/25 21:52 11/24/25 21:52 Laboratory Results WBC 7.86 10^3/uL (3.29-11.43) 11/24/25 21:52 RBC 2.91 10^6/uL (3.85-5.65) L 11/24/25 21:52 Hgb 7.60 g/dL (11.27-16.99) L 11/24/25 21:52 Hct 24.4 % (37-53) L 11/24/25 21:52 MCV 83.8 fl (82-101) 11/24/25 21:52 MCH 26.1 pg (27-33) L 11/24/25 21:52 MCHC 31.1 g/dL (30-55) 11/24/25 21:52 RDW 16.2 % (12.1-15.1) H 11/24/25 21:52 Plt Count 343 10^3/cmm (157-399) 11/24/25 21:52 MPV 9.0 fL (7.4-10.4) 11/24/25 21:52 Neut % (Auto) 57.0 % 11/24/25 21:52 Lymph % (Auto) 20.2 % 11/24/25 21:52 Haakon % (Auto) 6.0 % 11/24/25 21:52 Eos % (Auto) 15.1 % 11/24/25 21:52 Baso % (Auto) 0.4 % 11/24/25 21:52 Neut # (Auto) 4.48 10^3/uL (1.8-7.7) 11/24/25 21:52 Lymph # (Auto) 1.6 10^3/uL (0.8-4.8) 11/24/25 21:52 Haakon # (Auto) 0.5 10^3/uL (0.2-0.9) 11/24/25 21:52 Eos # (Auto) 1.2 10^3/uL (0.0-0.8) H 11/24/25 21:52 Baso # (Auto) 0.0 10^3/uL (0.0-0.1) 11/24/25 21:52 Nucleated RBC % (auto) 0 % 11/24/25 21:52 Nucleated RBCs # 0.0 /100WBC 11/24/25 21:52 Sodium 131 mmol/L (136-145) L 11/24/25 21:52 Potassium 5.3 mmol/L (3.5-5.1) H 11/24/25 21:52 Chloride 92 mmol/L (98-107) L 11/24/25 21:52 Carbon Dioxide 24 mmol/L (22-29) 11/24/25 21:52 Anion Gap 20.3 (5-19) H 11/24/25 21:52 BUN 62 mg/dL (8-23) H 11/24/25 21:52 Creatinine 1.8 mg/dL (0.7-1.2) H 11/24/25 21:52 GFR Calculation 37.5 mL/min (90-130) L 11/24/25 21:52 Glucose 120 mg/dL (65-115) H 11/24/25 21:52 Calculated Osmolality 291 mOsm/kg (285-295) 11/24/25 21:52 Lactic Acid 2.1 mmol/L (0.5-2.2) 11/24/25 21:52 Lactic Acid (Sepsis) 1.3 mmol/L (0.5-2.2) 11/25/25 01:09 Calcium 9.2 mg/dL (8.5-10.5) 11/24/25 21:52 Total Bilirubin 0.2 mg/dL (0.15-1.2) 11/24/25 21:52 AST 11 U/L (0-40) 11/24/25 21:52 ALT 11 U/L (0-41) 11/24/25 21:52 Alkaline Phosphatase 86 U/L (40-130) 11/24/25 21:52 Troponin T Baseline 58 ng/L (0-15) H 11/24/25 21:52 Troponin T 60 Minute 52.93 ng/L (0-15) H 11/24/25 22:49 Delta Troponin T -5.07 ABS# (0-10) L 11/24/25 22:49 Total Protein 7.2 g/dL (6.6-8.7) 11/24/25 21:52 Albumin 4.3 g/dL (3.5-5.2) 11/24/25 21:52 Globulin 2.9 g/dL (1.3-4.6) 11/24/25 21:52 Procalcitonin 0.16 ng/mL (0-0.5) 11/24/25 21:52 Urine Color Yellow (Yellow) 11/24/25 23:22 Urine Appearance Clear (CLEAR) 11/24/25 23:22 Urine pH 6.5 (5-7) 11/24/25 23:22 Ur Specific [place] 1.010 (1.005-1.030) 11/24/25 23:22 Urine Protein Negative (Negative) 11/24/25 23:22 Urine Glucose (UA) 1+ (Normal) H 11/24/25 23:22 Urine Ketones Negative (Negative) 11/24/25 23:22 Urine Blood Negative (Negative) 11/24/25 23:22 Urine Nitrate Negative (Negative) 11/24/25 23:22 Urine Bilirubin Negative (Negative) 11/24/25 23:22 Urine Urobilinogen 0.2 mg/dL (Negative) 11/24/25 23:22 Ur Leukocyte Esterase Negative (Negative) 11/24/25 23:22 Urine RBC 0-2 /hpf (0-2) 11/24/25 23:22 Urine WBC 0-5 /hpf (0-5) 11/24/25 23:22 Ur Squamous Epith Cells 0-5 /hpf (0-5) 11/24/25 23:22 Amorphous Sediment Not Reportable 11/24/25 23:22 Urine Bacteria None seen /hpf (NONE) 11/24/25 23:22 Hyaline Casts 0-4 /lpf H 11/24/25 23:22 All radiology interpretation(s) finalized by discharge Discharge Plan Discharge Patient Disposition: Home Clinical Impression: Orthostatic dizziness, Acute kidney injury, Chronically high serum potassium Anemia Qualifiers: Anemia type: unspecified type Qualified Code(s): D64.9 - Anemia, unspecified Condition: Stable Prescriptions: No Action gabapentin 300 mg capsule 300 mg PO TID tamsulosin 0.4 mg capsule 0.4 mg PO BEDTIME ascorbic acid (vitamin C) 500 mg capsule 500 mg PO DAILY finasteride 5 mg tablet 5 mg PO QAM ferrous sulfate 325 mg (65 mg iron) tablet 325 mg PO QAM Breztri Aerosphere 160-9-4.8 mcg/actuation HFA aerosol inhaler 2 inh inhalation BID pentoxifylline 400 mg tablet extended release 400 mg PO TID Qty: 90 4RF Rx Instructions: must administer with a meal/food dapagliflozin propanediol [Farxiga] 10 mg tablet 10 mg PO DAILY aripiprazole [Abilify] 10 mg tablet 10 mg PO .morning Qty: 90 2RF buspirone 30 mg tablet 30 mg PO BID Qty: 180 2RF mirtazapine 30 mg tablet 30 mg PO BEDTIME Qty: 90 2RF metformin 1,000 mg tablet 1,000 mg PO BID (DME) Diabetic shoes with 3 sets of insoles See Rx Instructions .Route .MEDSUPPLY Qty: 1 0RF Rx Instructions: As directed by Dot Kuhn metoclopramide HCl 5 mg tablet 5 mg PO TID nitroglycerin 0.4 mg tablet, sublingual See Rx Instructions .ROUTE .COMPLEX Qty: 25 2RF Dose Instruction: DISSOLVE ONE TABLET UNDER THE TONGUE EVERY 5 MINUTES NEEDED FOR CHEST PAIN. DO NOT EXCEED A TOTAL OF 3 DOSES IN 15 MINUTES Rx Instructions: DISSOLVE ONE TABLET UNDER THE TONGUE EVERY 5 MINUTES NEEDED FOR CHEST PAIN. DO NOT EXCEED A TOTAL OF 3 DOSES IN 15 MINUTES prazosin 1 mg capsule 2 mg PO BEDTIME Qty: 60 3RF docusate sodium 100 mg Tablet 100 mg PO BID PRN (Reason: Constipation) prednisolone acetate 1 % drops,suspension 1 drp ophthalmic (eye) QID Rx Instructions: left eye clopidogrel 75 mg tablet 75 mg PO QAM aspirin 81 mg tablet,delayed release (DR/EC) 81 mg PO QAM pravastatin 80 mg tablet 80 mg PO BEDTIME cyanocobalamin (vitamin B-12) 1,000 mcg/mL solution 1,000 mcg IM Q30D pantoprazole 40 mg tablet,delayed release (DR/EC) 40 mg PO BID albuterol sulfate [Ventolin HFA] 90 mcg/actuation HFA aerosol inhaler 2 puff INHALATION Q4H PRN (Reason: Shortness Of Breath) insulin glargine [Lantus Solostar U-100 Insulin] 100 unit/mL (3 mL) insulin pen 6 unit SUBCUT BEDTIME diclofenac sodium 1 % gel 4 g TOPICAL QID PRN (Reason: Pain) levofloxacin 750 mg tablet 750 mg PO DAILY 7 Days Qty: 7 0RF Discharge Orders: Discharge ED (Routine); Ordered 11/25/25 Ordered By: Libia Umanzor Referrals: Diego Glass MD [Primary Care Provider, [facility]] Patient Instructions: Opioid Safety, Pain Management, Patient Portal & Reggie Instructions, Hypotension (ED), Lightheadedness (ED), Dizziness (ED), Anemia, Acute Kidney Injury (DC) Activity Restrictions/Additional Instructions: Please continue to monitor your condition closely at home. If your condition worsens or additional concerns arise, please return promptly to the emergency department for reassessment. Follow up with your primary care doctor closely, today or tomorrow for repeat labwork. Understand that today, it was recommended that you be admitted due to several derangements on your lab work including impaired kidney function, mildly elevated potassium, anemia, dizziness, chest pain and shortness of breath with exertion that you have been experiencing. It is imperative that you see your primary care physician in the next couple of days to recheck your hemoglobin (red blood cells), potassium and kidney function. Please discontinue taking prazosin as this medication may contribute to orthostatic hypotension and low blood pressure with standing until you discuss this with your doctor at your follow up. Print Language: Romansh Coding Level of Care Code ED [place] for Becca Oliver
[2025-11-24 22:57] LABS: Troponin(5th) Baseline 58 ng/L (0-15)
[2025-11-24 23:17] LABS: Lactic Sepsis W/Reflex 2.1 mmol/L (0.5-2.2)
[2025-11-24 23:24] LABS: Procalcitonin 0.16 ng/mL (0-0.5)
[2025-11-24 23:34] LABS: Glucose Urine UA 1+ (Normal); Nitrate Urine Negative (Negative); Specific Gravity, Urine 1.010 (1.005-1.030)
[2025-11-24 23:39] LABS: Add Urine Microscopic? YES
--- NOTE | 2025-11-24 23:46 | ECG_ITS ---
[facility] 2025-11[facility]24 Pat Name: Hussein Fitch Department: Room: Gender: Male Member Services Representative: : 1955 Requested By: Libia Umanzor Order Number: [id number] Reading MD: ESPERANZA RAUSCH Measurements Intervals [place] Rate: 94 P: 64 TX: 180 QRS: 85 QRSD: 99 T: 53 QT: 352 QTc: 442 Interpretive Statements SINUS RHYTHM WITH OCCASIONAL VENTRICULAR PREMATURE COMPLEXES Compared to ECG 11/24/2025 20:37:45 Ventricular premature complex(es) now present Electronically Signed On 11-28-2025 18:55:32 [employer] by ESPERANZA RAUSCH [email or web address]
[2025-11-25] VITALS (10 sets, daily range): BP systolic 99–140; BP diastolic 51–64; PULSE 73–96; RESP 12–17; O2SAT 93–97
[2025-11-25 00:50] LABS: Reflex Lactate Order REFLEX LACTIC ORDERD
[2025-11-25 01:42] LABS: Lactic Acid level (Lactate) 1.3 mmol/L (0.5-2.2)
== END 2025-11-25 03:06 | disposition home or self-care (01) ==
PROVIDERS: Emergency Provider Emergency Medicine; PCP Family Medicine
DX: R42 Dizziness and giddiness (principal); N17.9 Acute kidney failure, unspecified; E87.5 Hyperkalemia; D64.9 Anemia, unspecified; Z79.84 Long term (current) use of oral hypoglycemic drugs; Z79.02 Long term (current) use of antithrombotics/antiplatelets; Z79.82 Long term (current) use of aspirin; Z79.4 Long term (current) use of insulin; Z87.891 Personal history of nicotine dependence; E11.42 Type 2 diabetes mellitus with diabetic polyneuropathy; J44.9 Chronic obstructive pulmonary disease, unspecified; E78.5 Hyperlipidemia, unspecified; I10 Essential (primary) hypertension
CPT/HCPCS: 36415; 80053; 81001; 83605; 84145; 84484; 85025; 87040; 93005; 96360; 96361; 99284; J7030